=== PATIENT | male | born 1965 | race Caucasian/White ===

== ENCOUNTER 2024-04-09 14:42 | Outpatient (OUT) | payer BC, SELFPAY ==
--- NOTE | 2024-04-09 | XR_ITS ---
The [address] [address] Patient Name: STEVE JOHN MRN: [id number] date: 1965 Sex: M Assigned Patient Location: Current Patient Location: Accession/Order Number: [id number] Exam Date: 04/09/2024 14:43 Report Date: 04/09/2024 16:13 At the request of: PATRICK KLEIN Procedure: XR foot LT min 3V PROCEDURE: XR ankle LT min 3V, XR foot LT min 3V COMPARISON: 04/09/2024 HISTORY: LEFT ANKLE PAIN FINDINGS: BONES:Remote tibia fracture with internal fixation. Remote fibular fracture. No acute fracture or dislocation. 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 Mild enthesopathic spurring of the calcaneus at the Achilles and plantar insertions SOFT TISSUES:Negative. No visible soft tissue swelling. EFFUSION:None visible. OTHER: Negative. 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
--- NOTE | 2024-04-09 | XR_ITS ---
The [address] [address] Patient Name: STEVE JOHN MRN: [id number] date: 1965 Sex: M Assigned Patient Location: Current Patient Location: Accession/Order Number: [id number] Exam Date: 04/09/2024 14:43 Report Date: 04/09/2024 16:13 At the request of: PATRICK KLEIN Procedure: XR ankle LT min 3V PROCEDURE: XR ankle LT min 3V, XR foot LT min 3V COMPARISON: 04/09/2024 HISTORY: LEFT ANKLE PAIN FINDINGS: BONES:Remote tibia fracture with internal fixation. Remote fibular fracture. No acute fracture or dislocation. 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 Mild enthesopathic spurring of the calcaneus at the Achilles and plantar insertions SOFT TISSUES:Negative. No visible soft tissue swelling. EFFUSION:None visible. OTHER: Negative. 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
== END 2024-04-09 14:43 | disposition home or self-care (01) ==
LOC: EC 14:42
PROVIDERS: Visit Provider Podiatrist Foot & Ankle Surgery
DX: M79.672 Pain in left foot (principal); M25.572 Pain in left ankle and joints of left foot
CPT/HCPCS: 73610; 73630

== ENCOUNTER 2024-05-28 12:52 | Outpatient (OUT) | payer BC, SELFPAY ==
--- NOTE | 2024-05-28 13:06 | ECG_ITS ---
The [facility] Test Date: 2024-05-28 Pat Name: STEVE JOHN Department: Room: - Gender: Male [employer]: : 1965 Requested By: PATRICK KLEIN Order Number: [id number] Reading MD: EDWARD CHILDS Measurements Intervals [place] Rate: 58 P: 27 OR: 166 QRS: -26 QRSD: 108 T: 33 QT: 406 QTc: 401 Interpretive Statements SINUS BRADYCARDIA BORDERLINE LEFT AXIS DEVIATION [QRS AXIS < -20] No previous ECG available for comparison Electronically Signed On 05-28-2024 18:37:10 EDT by EDWARD CHILDS
--- NOTE | 2024-05-28 13:49 | P.GSHP_ITS ---
History of Present Illness History of Present Illness Chief complaint: displaced pilon fracture left tibia Narrative: Patient presents for preadmission testing. Please see HPI from Dr. Peralta dated May 16, 2024. Review of Systems ROS Narrative REVIEW OF SYSTEMS: Negative except as stated in HPI, ten or more systems reviewed. Constitutional: No fever, chills, weakness ENT: No sore throat or epistaxis Cardiovascular: No edema, chest pain, palpitations, or activity intolerance Respiratory: No shortness of breath, cough, or wheezing Gastrointestinal: No abdominal pain, constipation, diarrhea, or vomiting Genitourinary: No dysuria or hematuria Neurological: No numbness, tingling, weakness, or headache Psychiatric: No mood changes PFSH [facility] Medical History (Updated 05/28/24 @ 13:51 by Licha Ross NP) Ankle pain ?M25.579 - Pain in unspecified ankle and joints of unspecified foot (ICD-10) BPH (benign prostatic hyperplasia) ?N40.0 - Benign prostatic hyperplasia without lower urinary tract symptoms (ICD-10) UTI (urinary tract infection) ?N39.0 - Urinary tract infection, site not specified (ICD-10) Prostatitis ?N41.9 - Inflammatory disease of prostate, unspecified (ICD-10) Arthritis ?M19.90 - Unspecified osteoarthritis, unspecified site (ICD-10) Seasonal allergies ?J30.2 - Other seasonal allergic rhinitis (ICD-10) Heart murmur ?R01.1 - Cardiac murmur, unspecified (ICD-10) Sepsis (~01/2024) ?A41.9 - Sepsis, unspecified organism (ICD-10) Elevated PSA ?R97.20 - Elevated prostate specific antigen [PSA] (ICD-10) Glaucoma ?H40.9 - Unspecified glaucoma (ICD-10) Presence of functional implant ?Z96.9 - Presence of functional implant, unspecified (ICD-10) Ankle contracture ?M24.573 - Contracture, unspecified ankle (ICD-10) Displaced pilon fracture of left tibia ?S82.872A - Displaced pilon fracture of left tibia, initial encounter for jarek sed fracture (ICD-10) Post-traumatic arthritis of ankle ?M19.179 - Post-traumatic osteoarthritis, unspecified ankle and foot (ICD-10) Elevated serum cholesterol ?E78.00 - Pure hypercholesterolemia, unspecified (ICD-10) Surgical History (Updated 05/28/24 @ 13:46 by Licha Ross NP) H/O colonoscopy ?Z98.890 - Other specified postprocedural states (ICD-10) H/O prostate biopsy (~01/2024) ?Z98.890 - Other specified postprocedural states (ICD-10) H/O knee surgery ?Z98.890 - Other specified postprocedural states (ICD-10) History of ankle surgery ?Z98.890 - Other specified postprocedural states (ICD-10) Social History (Updated 05/28/24 @ 13:28 by Licha Ross NP) Within the past year, how often did you have a drink containing alcohol: never Score interpretation: A score less than 4 is consistent with normal alcohol consumption. Smoking status: Never smoker Non-prescribed substance use: denies use Previous occupational history: [employer] Highest level of school completed/degree received: high school graduate Meds Home Medications and Allergies Home Medications ?Medication ?Instructions ?Recorded ?Confirmed ?Type alfuzosin 10 mg tablet,extended 10 mg PO [id number] 05/28/24 05/28/24 History release 24 hr ascorbic acid (vitamin C) 1,000 mg 1 g PO DAILY 05/28/24 05/28/24 History capsule calcium carbonate 600 mg-vitamin 1 tab PO DAILY 05/28/24 05/28/24 History D3 5 mcg (200 unit) tablet cetirizine 10 mg capsule (All Day 10 mg PO DAILY PRN allergy symptoms 05/28/24 05/28/24 History Allergy (cetirizine)) latanoprost 0.005 % eye drops 1 drp ophthalmic (eye) DAILY 05/28/24 05/28/24 History multivitamin (Daily Multi-Vitamin 1 tab PO DAILY 05/28/24 05/28/24 History tablet) rosuvastatin 20 mg tablet 20 mg PO DAILY 05/28/24 05/28/24 History zinc 50 mg tablet 50 mg PO DAILY 05/28/24 05/28/24 History Allergies Allergy/AdvReac Type Severity Reaction Status Date / Time bee venom protein (honey bee) Allergy local Verified 05/28/24 13:24 swelling Penicillins Allergy Unknown Verified 05/28/24 13:23 Exam Narrative Exam Narrative: Constitutional: Awake, alert, comfortable, well-appearing, nontoxic, interactive, vital signs as charted Head: Normocephalic, atraumatic Neck: Supple, normal appearance, normal range of motion, no meningeal signs, no lymphadenopathy Respiratory: No respiratory distress, breath sounds clear Cardiovascular: Regular rate and rhythm, strong and regular heart tones Skin: No rashes or induration, no lesions, only visible skin inspected Neuro: No neurological deficits, normal sensation Psychiatric: Oriented ?3, normal affect Assessment and Plan Assessment and Plan (1) Post-traumatic arthritis of ankle: (2) Displaced pilon fracture of left tibia: (3) Ankle contracture: (4) Presence of functional implant: (5) Ankle pain: Plan Left ankle and subtalar joint fusion with soft tissue balancing and bone graft as needed, removal of retained hardware scheduled with Dr. Peralta June 09, 2024.
[2024-05-28 14:10] LABS: Anion Gap 12.1; BUN Creatinine Ratio 22.4; Calcium 9.2 mg/dL (8.5-10.1); Carbon Dioxide 25.9 mmol/L (21.0-32.0); Chloride 105 mmol/L (98-107); Estimated GFR (African America >60 (>=60); Estimated GFR (Non-African Ame >60 (>=60); Glucose 127 mg/dL (74-106); Sodium 139 mmol/L (136-145)
== END 2024-05-28 12:53 | disposition home or self-care (01) ==
LOC: PST 12:55
PROVIDERS: Visit Provider Podiatrist Foot & Ankle Surgery
DX: Z01.810 Encounter for preprocedural cardiovascular examination (principal); Z01.812 Encounter for preprocedural laboratory examination; S82.872S Displaced pilon fracture of left tibia, sequela; M19.172 Post-traumatic osteoarthritis, left ankle and foot
CPT/HCPCS: 36415; 80048; 93005; G0463

== ENCOUNTER 2024-06-09 06:14 | Day surgery (SDC) | payer BC, SELFPAY ==
[2024-05-28 13:42] VITALS: BP 119/74; PULSE 68; TEMP 36.5; O2SAT 97; BMI 28.2
[2024-06-09] VITALS (34 sets, daily range): BP systolic 103–150; BP diastolic 59–86; PULSE 57–89; TEMP 35.9–37.3; O2SAT 86–98; BMI 27.5
--- OUTSIDE RECORDS SUMMARY | 2024-06-09 06:19 | XMS_ITS | CCD ---
Author Organization [facility] Care Team Providers Care Director Of Marketing Analytics Name Role Phone Trubachik, Delphine A Unavailable Trubachik SPECTROSCOPIST-VICTIM ADVOCATE, Delphine A Primary Care Provide r ARNOLD MOYA Primary Care Physician [phone] Jade Tinajero Unavailable Unavailable TRUBACHIK, DELPHINE Primary Care Physician [place] SPECTROSCOPIST-VICTIM ADVOCATE, Delphine A Primary Care Provide r SELF, SELF Referring Unavailable TRUBACHIK, DELPHINE Primary Care Unavailable EARLE HENDERSON S Attending Unavailable TRUBACHIK, DELPHINE Primary Care Unavailable EARLE HENDERSON S Referring Unavailable HENDERSONEARLE S Attending Unavailable TRUBACHIK, DELPHINE Primary Care Unavailable EARLE HENDERSON S Attending Unavailable SELF, SELF Referring Unavailable Trub[place]ik SPECTROSCOPIST-VICTIM ADVOCATE, Delphine A Primary Care Provide r TRUBACHIK, DELPHINE A Primary Care Unavailable TRUBACHIK, DELPHINE A Primary Care Unavailable TRUBACHIK, DELPHINE A Attending Unavailable SELF, SELF Referring Unavailable SELF, SELF Referring Unavailable TRUBACHIK, DELPHINE A Primary Care Unavailable TRUBACHIK, DELPHINE A Attending Unavailable SELF, SELF Referring Unavailable TRUBACHIK, DELPHINE A Primary Care Unavailable TRUBACHIK, DELPHINE A Attending Unavailable PATRICK KLEIN Referring Unavailable PATRICK KLEIN Attending Unavailable PATRICK KLEIN Admitting Unavailable TRUBACHIK, DELPHINE Primary Care Unavailable TRUBACHIK, DELPHINE Referring Unavailable Nadir GARCÍA Attending Unavailable TRUBACHIK, DELPHINE Primary Care Unavailable TRUBACHIK, DELPHINE Primary Care Unavailable Jennifer Guan Attending Unavailable ARNOLD MOYA Referring Unavailable TRUBACHIK, DELPHINE Primary Care Unavailable GARCÍA, Nadir R Attending Unavailable TRUBACHIK, DELPHINE Primary Care Unavailable GARCÍA, Nadir R Attending Unavailable TRUBACHIK, DELPHINE Primary Care Unavailable GARCÍA, Nadir R Attending Unavailable TRUBACHIK, DELPHINE Primary Care Unavailable TRUBACHIK, DELPHINE Referring Unavailable GARCÍA, Nadir R Attending Unavailable TRUBACHIK, DELPHINE Primary Care Unavailable TRUBACHIK, DELPHINE Primary Care Unavailable TRUBACHIK, DELPHINE Admitting Unavailable TRUBACHIK, DELPHINE Attending Unavailable TRUBACHIK, DELPHINE Primary Care Unavailable TRUBACHIK, DELPHINE Admitting Unavailable TRUBACHIK, DELPHINE Attending Unavailable TRUBACHIK, DELPHINE Primary Care Unavailable Rod Brown Attending Unavailable Moussjasper, Viktormad Admitting Unavailable TRUBACHIK, DELPHINE Primary Care Unavailable Ronel, Nikita Daigle Consulting Unavailable Bryn Rodney S Consulting Unavailable Blank, Nikita S Consulting Unavailable Blank, Nikita S Consulting Unavailable Blank, Nikita S Consulting Unavailable Blank, Nikita S Consulting Unavailable Blank, Nikita S Consulting Unavailable Blank, Nikita S Consulting Unavailable Blank, Nikita S Consulting Unavailable Blank, Nikita Daigle Consulting Unavailable Marvel Patel Consulting Unavailable Rod Brown Admitting Unavailable Louisa Soriano Attending Unavailable TRUBACHIK, DELPHINE Primary Care Unavailable MD Marvel Patel Consulting Unavailable Marvel Patel Consulting Unavailable TRUBACHIK, DELPHINE Primary Care Unavailable Amauri Tran Attending Unavailable TRUBACHIK, DELPHINE Primary Care Unavailable Cristóbal Lowe Referring Unavaila ble Cristóbal Lowe Attending Unavaila ble Marymineligio, Ambrocio Cathi Admitting Unavaila ble Nadir GARCÍA R Admitting Unavailable GARCÍA, Nadir R Referring Unavailable GARCÍA, Nadir R Attending Unavailable TRUBACHIK, DELPHINE Primary Care Unavailable Allergies Allergy Classification Reported Allergen(s) Allergy Type Date of Onset Reaction(s) Facility Bee/Wasp/Ant Venom (1 source) Honey bee venom Substance Allergy 1 [facility] Work Phone: Penicillins (antibiotic) (2 sources) Penicillins; Translations: [penicillins] Drug Allergy 8 [facility] (20 sources) Penicillins; Translations: [penicillins] Propensity to adverse reactions to drug 8 Unknown (qualifier value), Rash [facility] Work Phone: (8 sources) Honey bee venom Propensity to adverse reactions to drug 1 [facility] (7 sources) Pollen Propensity to adverse reactions to drug 2 [facility] (3 sources) Penicillins Propensity to adverse reactions to drug 8 [facility] (1 source) bee sting Allergy to substance 4 Unknown Reaction [facility] Medications Current Medications Medication Drug Class(es) Dates Sig (Normalized) Sig (Original) acetaminophen 325 mg oral tablet (4 sources) Start: 03-07-2013 Tylenol 325 mg Tab 650 mg = 2 tab(s), Oral, PRN as needed for pain, Refills(s) 0 Start Date: 03/07/13 Status: Ordered 24 hr alfuzosin hydrochloride 10 mg extended release oral tablet (11 sources) alpha-Adrenergic Steven Start: 03-10-2024 Alfuzosin Active MG PO March 10, 2024 12:00am Start: 12-10-2023 take 1 tablet by colleen th every twenty-four hours Alfuzosin HCl 10 MG Tab SR 24 HR Take 1 tablet by mouth. 12/10/2023 Active Start: 12-10-2023 take 1 tablet by mouth once da екатерина alfuzosin 10 mg ER Tab 10 mg = 1 tab(s), Oral, Daily, # 30 tab(s), Refills(s) 11, Pharmacy: [facility], 178, cm, 12/10/23 11:59:00 EST, Height/Length Dosing, 82, kg, 12/10/23 11:59:00 EST, Weight Dosing Start Date: 12/10/23 Status: Ordered Ascorbic Acid (16 sources) Vitamin C Start: 03-10-2024 take 1 g by mouth once daily Ascorbic Acid (Vitamin C) Active 1 GM PO Daily March 10, 2024 12:00am Start: 05-02-2019 take 500 mg by mouth once aissatou y Vitamin C 500 mg, Oral, Daily, Prophylaxis Start Date: 05/02/19 Status: Ordered take 1 tablet by colleen th once daily ascorbic acid 500 MG tablet Take 1 tablet by mouth daily. Active aspirin 325 mg delayed release oral tablet (4 sources) Platelet Aggregation Inhibitor, Nonsteroidal Anti-inflammatory Drug Start: 05-07-2019 take 1 tablet by mouth once daily Ecotrin 325 mg Tab-EC 325 mg = 1 tab(s), Oral, Daily, # 21 tab(s), Refills(s) 0, Pharmacy: [facility] Start Date: 05/07/19 Status: Ordered Start: 05-07-2019 take 1 tablet by colleen th once daily Ecotrin 325 mg Tab-EC 325 mg = 1 tab(s), Oral, Daily, # 21 tab(s), Refills(s) 0, Pharmacy: [facility] Start Date: 05/07/19 Status: Ordered Calcium (9 sources) Phosphate Binder, Calcium CALCIU M PO Take by mouth. Thinks contains Zinc Active CALCIUM PO Take by mouth. Thinks contains Zinc 0 Active calcium carbonate 1500 mg oral tablet (4 sources) Start: 05-02-2019 take 1 tablet by mouth once daily calcium (as carbonate) 600 mg oral tablet 600 mg = 1 tab(s), Oral, Daily, Prophylaxis Start Date: 05/02/19 Status: Ordered cefTRIAXone 2000 mg injection (4 sources) Cephalosporin Antibacterial Start: 03-10-2024 inject 2 g by intramuscular injection once daily Ceftriaxone Active 2 GM IM Daily March 10, 2024 12:00am Start: 01-29-2024 End: 03-07-2024 take 2 g intravenously once daily cefTRIAXone 2 g Inj 2 gm, IV Piggyback, Daily, # 38 EA, Refills(s) 0 Start Date: 01/29/24 Stop Date: 03/07/24 Status: Ordered End: 03-12-2024 cefTRIAXone Sodium (CEFTRIAX ONE IJ) Inject 2 g as directed daily. 20 ML syringe 03/12/2024 Discontinued (Therapy completed) cefTRIAXone Sodi um (CEFTRIAXONE IJ) Inject 2 g as directed daily. 20 ML syringe Active Celebrate Multivitamin oral capsule (4 sources) Start: 05-02-2019 take 1 capsule by mouth once daily Celebrate Multivitamin oral capsule 1 cap(s), Oral, Daily, Prophylaxis Start Date: 05/02/19 Status: Ordered cephalexin 500 mg oral capsule (1 source) Cephalosporin Antibacterial Start: 01-10-2024 End: 01-17-2024 take 1 capsule by mouth four times daily Keflex 500 mg Cap 500 mg = 1 cap(s), Oral, QID, X 7 day(s), # 28 cap(s), Refills(s) 0, Pharmacy: [facility], 178, cm, 01/10/24 10:05:00 EST, Height/Length Dosing, 82.6, kg, 01/10/24 10:05:00 EST, Weight Dosing Start Date: 01/10/24 Stop Date: 01/17/24 Status: Ordered cetirizine hydrochloride 10 mg oral tablet (9 sources) Histamine-1 Receptor Antagonist Start: 03-10-2024 take 1 tablet by mouth once daily Cetirizine (Zyrtec) 10 mg tablet Active 10 MG PO Daily March 10, 2024 12:00am diazePAM 10 mg oral tablet (2 sources) Benzodiazepine Start: 12-10-2023 take 1 tablet by mouth every hour as needed for anxiety Valium 10 mg Tab 10 mg = 1 tab(s), Oral, As Directed, PRN for anxiety, Take one hour prior to procedure., # 1 tab(s), Refills(s) 0, Pharmacy: [facility], 178, cm, 12/10/23 11:59:00 EST, Height/Length Dosing, 82, kg, 12/10/23 11:59:00 EST, Weight Dosing Start Date: 12/10/23 Status: Ordered EPINEPHrine (10 sources) alpha-Adrenergic Agonist, beta-Adrenergic Agonist, Catecholamine Start: 08-27-2023 epinephrine SubCutaneous, PRN Anaphylaxis, Refills(s) 0 Start Date: 08/27/23 Status: Ordered Start: 04-12-2021 End: 08-21-2023 EPINEPHrine 0.3 MG/0.3ML Kena ution Auto-injector injection Hives, lip/tongue/throat swelling, breathing trouble, lightheadedness, passing out or other symptoms of an allergic reaction. 2 Each 08/21/2023 Active ibuprofen 400 mg oral tablet (19 sources) Nonsteroidal Anti-inflammatory Drug Start: 05-02-2019 take 400 mg by mouth every six hours as needed for pain ibuprofen 400 mg, Oral, q6hr, PRN as needed for pain Start Date: 05/02/19 Status: Ordered End: 12-26-2019 take 2 tablets by mouth every six hours as needed ibuprofen 200 MG Tab tablet Take 400 mg by mouth every 6 hours as needed. 0 12/26/2019 Discontinued (Therapy completed) latanoprost 0.05 mg/ml ophthalmic solution (20 sources) Prostaglandin Analog Start: 03-10-[address] Active DROPS OPHTHALMIC March 10, 2024 12:00am Start: 05-02-2019 latanoprost Op th 0.005% Kena 1 drop(s), OPTH, Once a day (at bedtime), Other (see comment) Start Date: 05/02/19 Status: Ordered Start: 10-31-2018 take 1 drop(s) into the eye(s) every other day latanoprost 0.005 % Solution ophthalmic solution Place 1 drop in both eyes every other day. 10/31/2018 Active Start: 10-31-2018 latanoprost 0. 005 % Solution ophthalmic solution levoFLOXacin 750 mg oral tablet (3 sources) Quinolone Antimicrobial Start: 01-07-2024 End: 2024 take 1 tablet by mouth every twenty-four hours Levaquin 750 mg Tab 750 mg = 1 tab(s), Oral, q24hr, X 14 day(s), # 14 tab(s), Refills(s) 0, Pharmacy: [facility], 178, cm, 01/04/24 16:00:00 EST, Height/Length Dosing, 83.6, kg, 01/04/24 16:00:00 EST, Weight Dosing Start Date: 01/07/24 Stop Date: 01/21/24 Status: Ordered 24 hr mirabegron 50 mg extended release oral tablet (1 source) beta3-Adrenergic Agonist Start: 01-18-2024 take 1 tablet by mouth once daily Myrbetriq 50 mg oral tablet, extended release 50 mg = 1 tab(s), Oral, Daily, # 30 tab(s), Refills(s) 11, Pharmacy: [facility], 178, cm, 01/18/24 11:25:00 EST, Height/Length Dosing, 82, kg, 01/18/24 11:25:00 EST, Weight Dosing Start Date: 01/18/24 Status: Ordered Multivitamin preparation (1 source) Start: 03-10-2024 take 1 tablet by mouth once daily Multivitamin Active 1 TAB PO Daily March 10, 2024 12:00am multivitamin tablet (11 sources) take 1 tablet by mouth once daily multivitamin tablet Take 1 tablet by mouth daily. Active take 1 tablet by mouth once aissatou y multivitamin tablet Take 1 tablet by mouth daily. 0 Active 24 hr oxybutynin chloride 5 mg extended release oral tablet (1 source) Cholinergic Muscarinic Antagonist Start: 01-18-2024 take 1 tablet by mouth once daily oxybutynin 5 mg ER Tab 5 mg = 1 tab(s), Oral, Daily, # 30 tab(s), Refills(s) 11, Pharmacy: [facility], 178, cm, 01/18/24 11:25:00 EST, Height/Length Dosing, 82, kg, 01/18/24 11:25:00 EST, Weight Dosing Start Date: 01/18/24 Status: Ordered Probiotic Product (PROBIOTIC 10 ULTRA STRENGTH PO) (2 sources) Probiotic Produc t (PROBIOTIC 10 ULTRA STRENGTH PO) Take by mouth. Active rosuvastatin 20 mg oral capsule (20 sources) HMG-CoA Reductase Inhibitor Start: 03-10-2024 take 20 mg by mouth once daily Rosuvastatin Active 20 MG PO Daily March 10, 2024 12:00am Start: 06-28-2018 End: 08-21-2023 take 1 tablet by mouth once daily rosuvastatin 20 mg Tab 20 mg = 1 tab(s), Oral, Daily, High cholesterol Start Date: 05/02/19 Status: Ordered S.A.S (Saline, Administration of drug, Saline) (3 sources) Start: 01-28-2024 S.A.S (Saline, Administration of drug, Saline) S.A.S (Saline, Administration of drug, Saline), Print Requisition, Supply Start Date: 01/28/24 Status: Ordered S.A.S.H (saline, Administration of drug, Saline, Heparin) (3 sources) Start: 01-28-2024 S.A.S.H (salin e, Administration of drug, Saline, Heparin) S.A.S.H (saline, Administration of drug, Saline, Heparin), Print Requisition, Supply Start Date: 01/28/24 Status: Ordered sulfamethoxazole 800 mg / trimethoprim 160 mg oral tablet (4 sources) Dihydrofolate Reductase Inhibitor Antibacterial, Sulfonamide Antimicrobial Start: 03-17-2024 sulfamethoxazole-tri m ethoprim 800 mg-160 mg Tab Refill(s) 0 Start Date: 03/17/24 Status: Ordered Start: 03-10-2024 take 1 tablet by colleen th twice daily Sulfamethoxazole-trimethoprim 800-160 MG per tablet Take 1 tablet by mouth 2 times daily. 03/10/2024 Active tadalafil 20 mg oral tablet (1 source) Phosphodiesterase 5 Inhibitor Start: 01-18-2024 Cialis 20 mg Tab 20 mg = 1 tab(s), Oral, As Directed, PRN for sexual activity. Do not exceed 20mg within 48 hours., # 30 tab(s), Refills(s) 4, Pharmacy: [facility], 178, cm, 01/18/24 11:25:00 EST, Height/Length Dosing, 82, kg, 01/18/24 11:25:00 EST, Weight Dosing Start Date: 01/18/24 Status: Ordered zinc acetate 50 mg oral capsule (1 source) Start: 03-10-2024 take 50 mg by mouth once daily Zinc Acetate Active 50 MG PO Daily March 10, 2024 12:00am zinc gluconate 50 mg oral tablet (2 sources) take 1 tablet by mouth once daily Zinc 50 MG tablet Take 1 tablet by mouth daily. Active Completed/Discontinued Medications Medication Drug Class(es) Dates Sig (Normalized) Sig (Original) acetaminophen 325 mg / HYDROcodone bitartrate 5 mg oral tablet (4 sources) Opioid Agonist Start: 9 [place] 325 mg-5 mg oral tablet See Instructions, for pain, 40 tab(s), Refill(s) 0, 1 - 2 po q4-6h prn pain Dx: M67.52 Duration: 7 days, [facility] Start Date: 05/07/19 Status: Ordered diphenhydrAMINE hydrochloride 25 mg oral tablet (6 sources) Histamine-1 Receptor Antagonist End: 3 take 1 tablet by mouth every six hours as needed diphenhydrAMINE 25 MG tablet Take 25 mg by mouth every 6 hours as needed. Nightly 0 08/21/2023 Discontinued (Therapy completed) esomeprazole 20 mg / naproxen 500 mg delayed release oral tablet (15 sources) Proton Pump Inhibitor, Nonsteroidal Anti-inflammatory Drug End: 0 take 1 tablet by mouth twice daily Naproxen-Esomeprazole (VIMOVO) 500-[address] Take 1 tablet by mouth 2 times daily. 0 12/26/2019 Discontinued 3 ml heparin sodium, porcine 100 unt/ml prefilled syringe (2 sources) Unfractionated Heparin, Anti-coagulant End: 4 Heparin Na, Pork, Lock Flsh PF (BD Heparin PosiFlush) 100 UNIT/ML Solution 1 mL by Intracatheter route as needed. 03/12/2024 Discontinued (Therapy completed) latanoprost Opth 0.005% Kena (1 source) Start: 9 latanoprost Opth 0.005% Kena 1 drop(s), OPTH, Once a day (at bedtime), Other (see comment) Start Date: 05/02/19 Status: Ordered methylPREDNISolone 4 mg oral tablet (3 sources) Corticosteroid Start: 2 End: 3 methylPREDNIsolone 4 MG Tab Therapy Pack tablet Indications: Right knee pain, unspecified chronicity , Acute medial meniscus tear, right, initial encounter Day 1 take 6 pills, day 2 take 5 pills, day 3 take 4 pills, day 4 take 3 pills, day 5 take 2 pills, day 6 take 1 pill. 21 tablet 0 06/28/2022 08/21/2023 Discontinued (Therapy completed) Start: 06-28-2022 methylPREDNIso lone 4 MG Tab Therapy Pack tablet Indications: Right knee pain, unspecified chronicity , Acute medial meniscus tear, right, initial encounter Day 1 take 6 pills, day 2 take 5 pills, day 3 take 4 pills, day 4 take 3 pills, day 5 take 2 pills, day 6 take 1 pill. 21 tablet 0 06/28/2022 Active naproxen 500 mg oral tablet (3 sources) Nonsteroidal Anti-inflammatory Drug Start: 01-23-2020 End: 2021 take 1 tablet by mouth twice daily at mealtime naproxen 500 MG tablet Take 1 tablet by mouth 2 times daily with meals. 30 tablet 0 01/23/2020 2021 Discontinued (Therapy completed) omeprazole 20 mg delayed release oral capsule (3 sources) Proton Pump Inhibitor Start: 01-23-2020 End: 2021 take 1 capsule by mouth once daily omeprazole (PriLOSEC) [address] capsule Take 1 capsule by mouth daily. 15 capsule 0 01/23/2020 2021 Discontinued (Therapy completed) predniSONE 20 mg oral tablet (20 sources) Start: 04-10-2021 End: 04-15-2021 take 2 tablets by mouth once daily predniSONE 20 mg Tab 40 mg = 2 tab(s), Oral, Daily, # 10 tab(s), Refills(s) 0 Start Date: 04/10/21 Stop Date: 04/15/21 Status: Ordered Start: 03-17-2019 End: 12-26-2019 predniSONE 20 MG Tab tablet Indications: Acute pain of left knee Take 3 tabs daily X 3 days then 2 tabs daily X 3 days then 1 tab daily X 3 days then 1/2 tab daily X 4 days. Take with food 20 tablet 0 03/17/2019 12/26/2019 Discontinued (Therapy completed) sildenafil 100 mg oral tablet (9 sources) Phosphodiesterase 5 Inhibitor Start: 01-03-2019 End: 03-17-2019 sildenafil citrate 100 MG Tab tablet Take 1/2 to 1 tablet 1/2 prior to sexual intercourse 30 tablet 0 01/03/2019 03/17/2019 Discontinued vitamin b12 1 mg oral tablet (5 sources) Vitamin B12 End: 08-21-2023 cyanocobalamin 1000 MCG tablet Take 1,000 mcg by mouth. 0 08/21/2023 Discontinued (Therapy completed) Problems Active Problems Problem Classification Problem Date Documented Da te Episodic/Chronic Allergic reactions (1 source) Eczema; Translations: [Other specified dermatitis] 02-11-2024 Episodic Conditions associated with dizziness or vertigo (1 source) Dizziness; Translations: [Dizziness] Episodic Disorders of lipid metabolism (20 sources) Hyperlipidemia; Translations: [Hyperlipidemia, unspecified] Onset: 4 12-12-2017 Chronic Glaucoma (20 sources) Glaucoma; Translations: [Unspecified glaucoma] Onset: 0 01-30-2020 Chronic Heart valve disorders (9 sources) Heart murmur; Translations: [Cardiac murmur, unspecified] 12-10-2023 Episodic Hyperplasia of prostate (12 sources) Benign prostatic hypertrophy with outflow obstruction; Translations: [Benign prostatic hyperplasia with lower urinary tract symptoms] Onset: 4 Chronic Inflammatory conditions of male genital organs (6 sources) Chronic prostatitis; Translations: [Chronic prostatitis] Onset: 4 Chronic Inflammatory conditions of male genital organs (5 sources) Prostatitis; Translations: [Inflammatory disease of prostate, unspecified] Onset: 4 Episodic Joint disorders and dislocations; trauma-related (1 source) Acute tear of medial meniscus of right knee; Translations: [Other tear of medial meniscus, current injury, right knee, initial encounter] Episodic Nonspecific chest pain (2 sources) Chest pain; Translations: [Chest pain, unspecified] 02-11-2024 Episodic Osteoarthritis (1 source) Osteoarthritis of right knee joint; Translations: [Unilateral primary osteoarthritis, right knee] Chronic Other acquired deformities (1 source) Arthropathy of knee joint; Translations: [Other specified acquired deformities of musculoskeletal system] Episodic Other aftercare (1 source) Long-term current use of antibiotic; Translations: [retirement (current) use of antibiotics] 03-10-2024 Episodic Other connective tissue disease (12 sources) Plantar fasciitis 05-02-2019 Episodic Comment on above: RIGHT FOOT Other connective tissue disease (2 sources) Pain of right calf; Translations: [Right calf pain] Other diseases of bladder and urethra (2 sources) Detrusor overactivity; Translations: [Overactive bladder] Onset: 4 Chronic Other diseases of bladder and urethra (4 sources) Overactive bladder 01-18-2024 Chronic Other infections; including parasitic (1 source) H/O: infectious disease; Translations: [Personal history of other infectious and parasitic diseases] Onset: 4 Episodic Other infections; including parasitic (2 sources) History of sepsis 03-17-2024 Episodic Other liver diseases (1 source) Abnormal levels of other serum enzymes; Translations: [Liver enzyme elevation] Episodic Other lower respiratory disease (1 source) Dyspnea; Translations: [Shortness of breath] 02-11-2024 Episodic Other male genital disorders (1 source) Impotence of organic origin; Translations: [Erectile dysfunction, unspecified erectile dysfunction type] Chronic Other male genital disorders (3 sources) Male erectile dysfunction, unspecified; Translations: [Erectile dysfunction] Onset: 4 Chronic Other male genital disorders (6 sources) Prostatic intraepithelial neoplasia; Translations: [Prostatic intraepithelial neoplasia] Onset: 4 Episodic Other non-traumatic joint disorders (14 sources) Knee pain; Translations: [Acute pain of left knee] 05-02-2019 Episodic Other non-traumatic joint disorders (3 sources) Pain in right knee; Translations: [Pain in joint, lower leg] Onset: 2 Episodic Other screening for suspected conditions (not mental disorders or infectious disease) (20 sources) Platelet count below reference range; Translations: [Raised prostate specific antigen] Onset: 3 Episodic Other skin disorders (2 sources) Localized swelling, mass and lump, right lower limb; Translations: [Localized swelling of right lower leg] Episodic Other upper respiratory disease (9 sources) Allergic disposition; Translations: [Other allergic rhinitis] Onset: 1 Chronic Pathological fracture (1 source) Fracture of femoral condyle; Translations: [Pathological fracture, right femur, initial encounter for fracture] Episodic Phlebitis; thrombophlebitis and thromboembolism (1 source) Phlebitis; Translations: [Phlebitis and thrombophlebitis of unspecified site] Onset: 4 Episodic Unclassified (14 sources) Patient encounter status; Translations: [Routine general medical examination at a health care facility] 08-28-2023 Unclassified (1 source) Screening status; Translations: [Colon cancer screening] Unclassified (2 sources) Other; Translations: [Other] Onset: 4 Urinary tract infections (1 source) Urinary tract infectious disease; Translations: [Urinary tract infection, site not specified] Onset: 4 Episodic Past or Other Problems Problem Classification Problem Date Documented Date Episodic/Chronic Esophageal disorders (10 sources) Gastroesophageal reflux disease without esophagitis; Translations: [Gastro-esophageal reflux disease without esophagitis] Onset: 01-30-2020 Resolved: 01-30-2020 01-30-2020 Chronic Genitourinary symptoms and ill-defined conditions (4 sources) Increased frequency of urination; Translations: [Frequency of micturition] Onset: 08-21-2023 08-21-2023 Episodic Septicemia (except in labor) (4 sources) Sepsis; Translations: [Sepsis, unspecified organism] Onset: 01-04-2024 Episodic Results Test Name Value Interpretation Reference Range Facility Coding Summary.on 05-08-2024 Coding Summary. XPMJZjpa56CAy5bYi+PG hl YWQ+OY8ARSMnC15bdDWtjG 8mF7EUULsUGhyyAKFWZMuD MmQnriYiIK7eqFUsKAQb IC8+KM5qEMYaUcngxXXgs9 N3oIY4D92wzz9qITsupCA5 IWHiDrNedrvug8jzaSh3PG cuNmluOyBt SUJbiL02FEI6eL74Lj59nS YwuBYft6pisPw5VxUmJQQq YIM7wNelJMijc6DnOUQbL9 9jsNWsd5F0 UEAqyPydjLTrQrOzsNE8oS 9cKDzdfvtax5wvoacxSat2 pb66gVLic4W4cTT7G3Kmbx D1XXMtgHYt HnbhyXCYgL2objauj6xrcu ceBcZtBVCnWQc4DJr9TPLw kXnaTpRwQQ15CDN8KTUqfa QcQ8PjXEUu jByaZbT5z2D7Cd5SX0HPQu mrA4FVURIGIQegpFX+PC90 wc76R7ZzEhfjFim4GMTuOC G7sKB3dP5o JJAwILgvk4G2fGI0Q2Xoif Qobt9rc6reLROuUFilX89w oPGwg5K2ZWCfrFB1BIYemG yqLgCwnR51 Oyc+SDYqwNoym7QqSseyf1 fsq3kebGr2YebjRCIyvqZf yHddGXB2n2UfUs2jABFbrA D8tPC6nG1i AvDqFsH0CSvlV284WyNqeI BlJthvJ92oJ8HjuSQ+PHRy Ogi8HGSazUbyOL5xK7XeYH RpbmctbGVm sDwkQX7rHYYbgotrHUMbuG 1qWAPqX7t4ApDxYgI6SYvv P3UlCQGkpgvcUb46fM1yNw DtGxD7QGcu D9LweeC3ZERsjEZzJCnfTO F1M73wi8I8FYZsCIKgXRN6 yET4qG6zzZueaasgfFRgaT sgdmVydGlj ICldELeaU700JPQjyRxlYu NvZGluZyBEYXRlOiAgMDYv MjAvMjAyNDwvdGQ+PHRkIH T4aZytNYUq jISqVGeuBa5fuIfwdIavTC 5zYUAeqtkeGNDlzK7sNSVt lQDwyNarIL3bDVZpasiuo8 42FlCtMTV9 NRVgvHPuG1BrsE1pUxCcCL PjEHReP3FjsLPtLBvxA646 MSgaNdZ5EYFgtqOwA8QdSX FsaWduOiB0 u9E8Lb1Qe8MjvkuvF1FhuM SzMgEwWbvlIGb9Q1HhBdgu dHI+LG39LETmKK82ALb5NA P0pNkjNQru IBSpD5YfkM8eFjLyHCOhVW RkOyc+PHRhYmxlIHdpZHRo GXciOBIyYiKydMzxBN3eOp 9yZGVyLWNv uKhfxOJdAyLeo6eeDDTnFS lxJA1jqEkwN0TkfAO1WUPp e8j4Nl14F29sJ3BnqDC+PG IyrUV9xEP9 tF8tXeXbEsC0FXjwT518Lx HvuTArGlchl5aai0karUj2 RvM1RIIlikKziPekQOE0f4 EpIa35K12e IHdpZHRoPSIxNSUiIHZhbG hlav5vtT1fAm4+PGNvbCB3 lQS3aD7qHjVmHzL0LDafD2 49InRvcCIv Axsxa2ehh0fxpBl3ZtTgLC QlriIzqEqnVPL1z2VzHc71 J4UgbSsia7GzEfo0uh54zC Gqo4E3hJE1 U3DhCCXznrudwMOxzHxjLF 2aXKUwwvkwZOSwpR1yWOLv Y5s5LyTzMqL6GCmpS8Ohqj W1HAKpnNXt WNPxbWAFjH5dcwipe0wfuk tbRjVaOAByIQf6FZp7UVUj wWrnOmQtGAA1DdO9EPE1xE MarX7keFao oqdzkA0rYdo+DWR6xVDojO CWFE2cTeaoeUI+PHRkIHN0 fWvnVZcwPKLxmQ8eEVByC1 g0PdSfMcJ8 ZPgqC5UabrJ2JAPwmKFsCY VgsTTLkI8wruwfl8dmthhf QqAyWTAeKAj4BKs1IJFqjA duOiBsZWZ0 WgC1ZNN8kOTdsJ3noGuyil uihC9bJjb+QmlydGggRGF0 PQo7V2FyJou7HWJwuFovZQ 0ncGFkZGlu Tv7jxHfqaNqtGR0qGZGckc vhq425RrSzp8ddTONauCWa LLagGUX3D44if8A3FLUfXX LyNYN0fAZ2 jN8noAlilaahwCQmjRsand NkwUhzGQbuYFidY185VTXv lWeyYiHdVIu0A2WjJut6JF QgmTneTT2s jTLbLFtuOe7zeYtxmGokNJ 7jSDJnykxxf381NyRuw3fb ZUTmwNIzSYhaPFH0G16ej3 F4JVMkOITu COD4qSK0jC8fzEovohruyC VmdDsgdmVydGljYWwtYWxp U557DZXuzQgaPuOxjEo4K7 LzPrr0CLVx bNpfJR2eaWGnBJaeEi9pmE xmdMfoLG8oBCCbwmpuj963 IlGkj7ymZZWqpKZkMYzaDL X6Y21rs3J4 EVCeIRPqYNA9wAD4pV3abX lnbjogbGVmdDsgdmVydGlj DGcrDTqaG087QITuhMxjSs BhdGllbnQg IHauHBa4E5JrKseniYN+PC 43SEEjAP45gGAjrHIus8el pMh5YiLoEDZjAXF0nJjhYQ hlo4XvOPWd N27bfHScx6E4YQVzlGzhzI UhXmGufUR1pQ7dJRgvgfkm r2rqwyebMnvkc4xlvb00fF 87O62fSVhj ZHRoPSIzMCUiIHZhbGlnbj 2ppE7fFw5+LRRgcLH6yQF3 oY1aGXVeMuU6CPeiQ703Dm RvcCIvPjxj u7alm1wfsAf9KfI5OYPusc MtuBcsVBZ8n7QeAt36R26f IHdpZHRoPSIyMCUiIHZhbG bhwo8vrD6e Ii8+EGVowDN0pIT2xQ3fUm LhDxF0QBwkN420SaNtzBLv OktzB32cH7OfiDY+PHRyPj f7HWBhkAkx HR3ijZQjFRubGh4zCWX6Ru LxLsMzJNchV2EkSCFyzlji fxlraXW0OWSjRTByuO54Qc 9udDogMTBw tSRJyA2apxzsf1fkltfwUf JcMEVwAWk9OEu7LSFxeRqq KcXmCLF9XxF9ZKC7fUZrrS 1hbGlnbjog eW2lX9QhHKCkfzkyFm53mY 5pNzDkEyK3MIuiCmx+Uk9U WiRQVfjrJ6SSL64ESMUGCL 80LI34jKFh n9E7yEF7N5ApROMuidhlly wgaFY7DULrJKWexL67fJSt WVaoYf5ie5Y1z570HLDzFC LlcU53Qv4y cGwgBKBsdJFGaC2apqwxh2 gaoeiyChDsGKMxBNl9QDe6 JAEduCxfTcYmURF9BuW3GB M4qHKmqX0e cRhvesqknN9bAjy+MDMvMD CvGZv0WxbizWB+PHRkIHN0 rTscMTvsBLTnjK8eGROoE8 j4IjRzUtM0 XDfuL2FoLLStcebyBg55gL 4fKzEiBrA7IHwsG7AhsyX9 OKEvnOZyZJtwEMI0Y58xg9 G4BUFsLQVi EIP3aKK1lV7aiHrpvaynhI VmdDsgdmVydGljYWwtYWxp B493PBBgzKboNwF0OMvjCE PkGA38XS79 dFBnm7W0eWF3N3YwYEEfha dovitqeOJ6LYMwGGJntK93 rSOrZUwkEd0pi1Z7i126WA MbLENssB68 Jr7opBzqTSOtgSWNkP7fkq hxf6lrirpyOzZxODCzJLo4 HGa9NZLheHpgFrVfAGL7Wg Q2VTQ7jAMm bE5kpJugqakvjV7fVzs+TW FsZTwvdGQ+ZTOyJMQ2iZzc COwnZVIxpW8wJLFpL1f6Tf BgWjY8UVdb V9VjYPFbdzfmBs81dK7oAe LyGrJ0PUfeM1OykoY5RBRa hPOeDIhaHUW2O10ml7C7EP MwMDAwMDA7 rEQ7bJ0aoPphrsldoOAynS dnuoXmlTpgNWbeOQukO450 IVFotLkiJs64lZCqeChthm T9P0QfVdqa dHI+TY38ZUToMM67zEDpaI Bmg0gweTv6DdHqVQGjNEM5 nEeoEWmsc9BnNLUtU01chV Nrv8L9OSVk eAqebVRtAsQxhVL7hF1lTL ndcvnrj9ribmakRorjh2xr ba43qY16M37wBZuqNAInIC IzMCUiIHZh oOydoq8ntM7sJr5+PGNvbC Y0kRT0bX9nWoGhQnM0DGei W513LcEbmNRsBissl1dhp3 jpoAw0MzWb YBAjrpEylJwxTIK2o2UzGy 84T41pMOndTCVuNJGfTIOq GVAbyOmwiz9psI1mIz4+PC 6ih0yjxt85 oH40bZX+GBLbENG6xJnpOD uyDPXsnY3uOObgYdV9SNWn BnPwhX81aFAvWPxfLe9vmD silYnaOX5x ZPJwlrgwa494DiMbu5eeHC ZvlXKfQOtgDMN1G22pq8A2 TOTwLJWiPCR1wUA7nK0pmA lnbjogbGVm dDsgdmVydGljYWwtYWxpZ2 78HRVxtQtwLjOnaXLeC1uj hdRMNZ2lNvkkbLN+PHRkIH U1tQldFXsp PSGmbM2sCMEdS0j4GeIqMb E5TApjB8IomjT9TZIqrTCm PCHmeGGWuR8bqudyc8lcna ogIzAwMDAw GTw5VMy8ACWxaFpqAjYlYG L5DyY8DFC5gATgoB7rkOce fggwdK2hOeb+RklOOjwvdG Q+PHRkIHN0 tPorSKjoOBPhkR9hMRNuL2 y4EtXdStU4VXkmH3NxpxG4 NSInpDFtIBSoyDWUuF8xfb gnt6bjukcs ZwZyNYHoGSb7UIn5IYIqrE gtVbUrHZZ1KvM6ZNL1qHJr vW4ymYingmxlxY1qVkd+TV JOOjwvdGQ+ HWFgBME9cOjqLGepGOHmzP 0yJFPbR8j5InFwEzA3IBoq L0VrvzE5DWEzoWBdOIRufI ATgA4avxbn x3ffuhohGfMiDDCaFHs2BL p8PYXvcGkmPfPqFNJ7IrV7 BWZ5iOFgdO6hjWbwwvzbtI 9wOyc+UGF5 EIO7NX37BS13H2TnChyedD FibGU+PHRhYmxlIHdpZHRo SAwqRYYbPaGbpUrnIQ3jBu 9yZGVyLWNv bGxhcHNlOiBjb (more content not included)... Normal [facility] CT Lower Extremity w/o Contr ast Lefton 05-03-2024 CT Lower Extremity w/o Contrast Left Exam Date/Time: 04/30/2024 14:43 EDT Reason for Exam: M19.172 Report IMPRESSION: HEALED DISTAL TIBIAL AND FIBULAR FRACTURES WITH HARDWARE, NOTED. MODERATELY EXTENSIVE OSTEOARTHRITIC CHANGES OF THE ANKLE JOINT. NOTHING ACUTE OR DESTRUCTIVE IDENTIFIED. EXAM: CT Lower Extremity w/o Contrast Left DATE: 04/30/2024 2:26 PM CLINICAL HISTORY: M19.172. COMPARISON: None available. TECHNIQUE: Spiral imaging was obtained of the left ankle with routine multiplanar reconstructions performed. All CT scans at this facility use dose modulation, iterative reconstruction, and/or weight based dosing when appropriate to reduce radiation dose to as low as reasonably achievable. FINDINGS: Three essentially coronally oriented orthopedic screws are noted within the distal tibial plafond with a healed mildly deformed posterior malleolar fracture and moderately extensive osteoarthritic changes of the ankle joint with prominent marginal osteophytosis. A chronic healed fracture of the distal fibula with osteotomies from previously removed orthopedic hardware is noted. There is no acute fracture, evidence of hardware loosening, worrisome bone destruction, or other findings of concern identified. Ordering Provider: , FINAL REPORT Dictated: 05/03/2024 2:31 pm Yoel Joya MD Signed (Electronic Signature): 05/03/2024 2:31 pm Signed by: Yoel Joya MD Transcribed by: JASON Technologist: BRICE, Rylee [facility] US PVR Lower EXT Complete Bi laton 05-03-2024 US PVR Lower EXT Complete Bilat Exam Date/Time: 04/30/2024 14:33 EDT Reason for Exam: R09.89 Report IMPRESSION: NO EVIDENCE OF SIGNIFICANT ARTERIAL STENOTIC DISEASE INVOLVING THE RIGHT AND LEFT LEGS. CLINICAL HISTORY: R09.89. COMPARISON: CT abdomen and pelvis with contrast 01/25/2024. FINDINGS: On the right, the brachial systolic pressure is 113 the high thigh pressure is 171 , index 1.44 the low thigh pressure is 152 , index 1.28 the calf pressure is 144 , index 1.21 the posterior tibial ankle pressure is 160 , index 1.34 the dorsalis pedis ankle pressure is 152 , index 1.28 and the digit pressure is 115 , index 0.97 (with normal 0.7 or greater). The plethysmography waveforms are normal. On the left, the brachial systolic pressure is 119 the high thigh pressure is 168 , index 1.41 the low thigh pressure is 156 , index 1.31 the calf pressure is 148 , index 1.24 the posterior tibial ankle pressure is 164 , index 1.38 the dorsalis pedis ankle pressure is 144 , index 1.21 and the digit pressure is 119 , index 1.00 (with normal 0.7 or greater). The plethysmography waveforms are normal. Ordering Provider: , FINAL REPORT Dictated: 05/03/2024 2:26 pm Yoel Joya MD Signed (Electronic Signature): 05/03/2024 2:26 pm Signed by: Yoel Joya MD Transcribed by: JASON Technologist: HAYDEN [facility] [place] Consent for Treatmenton 04-19 Consent for Treatment [id number] 0TIFF [facility] Physician Orderon 04-18-2024 Physician Order [id number]#1. 00TIFF [facility] Insurance Correspondenceon 0 04-17-2024 Insurance Correspondence [id number]#1. 00TIFF [facility] Patient Educationon 03-17-20 24 Patient Education Oncology Prostate Cancer Screening Prostate cancer screening is testing that is done to check for the presence of prostate cancer in men. The prostate gland is a walnut-sized gland that is located below the bladder and in front of the rectum in males. The function of the prostate is to add fluid to semen during ejaculation. Prostate cancer is one of the most common types of cancer in men. Who should have prostate cancer screening? Screening recommendations vary based on age and other risk factors, as well as between the professional organizations who make the recommendations. In general, screening is recommended if: ? You are age 50 to 70 and have an average risk for prostate cancer. You should talk with your health care provider about your need for screening and how often screening should be done. Because most prostate cancers are slow growing and will not cause , screening in this age group is generally reserved for men who have a 10- to 15-year life expectancy. ? You are younger than age 50, and you have these risk factors: ? Having a father, brother, or uncle who has been diagnosed with prostate cancer. The risk is higher if your family member's cancer occurred at an early age or if you have multiple family members with prostate cancer at an early age. ? Being a male who is Black or is of [place] or sub-Saharan descent. In general, screening is not recommended if: ? You are younger than age 40. ? You are between the ages of 40 and 49 and you have no risk factors. ? You are 70 years of age or older. At this age, the risks that screening can cause are greater than the benefits that it may provide. If you are at high risk for prostate cancer, your health care provider may recommend that you have screenings more often or that you start screening at a younger age. How is screening for prostate cancer done? The recommended prostate cancer screening test is a blood test called the prostate-specific antigen (PSA) test. PSA is a protein that is made in the prostate. As you age, your prostate naturally produces more PSA. Abnormally high PSA levels may be caused by: ? Prostate cancer. ? An enlarged prostate that is not caused by cancer (benign prostatic hyperplasia, or BPH). This condition is very common in older men. ? A prostate gland infection (prostatitis) or urinary tract infection. ? Certain medicines such as male hormones (like testosterone) or other medicines that raise testosterone levels. A rectal exam may be done as part of prostate cancer screening to help provide information about the size of your prostate gland. When a rectal exam is performed, it should be done after the PSA level is drawn to avoid any effect on the results. Depending on the PSA results, you may need more tests, such as: ? A physical exam to check the size of your prostate gland, if not done as part of screening. ? Blood and imaging tests. ? A procedure to remove tissue samples from your prostate gland for testing (biopsy). This is the only way to know for certain if you have prostate cancer. What are the benefits of prostate cancer screening? ? Screening can help to identify cancer at an early stage, before symptoms start and when the cancer can be treated more easily. ? There is a small chance that screening may lower your risk of dying from prostate cancer. The chance is small because prostate cancer is a slow-growing cancer, and most men with prostate cancer from a different cause. What are the risks of prostate cancer screening? The main risk of prostate cancer screening is diagnosing and treating prostate cancer that would never have caused any symptoms or problems. This is called overdiagnosisand overtreatment. PSA screening cannot tell you if your PSA is high due to cancer or a different cause. A prostate biopsy is the only procedure to diagnose prostate cancer. Even the results of a biopsy may not tell you if your cancer needs to be treated. Slow-growing prostate cancer may not need any treatment other than monitoring, so diagnosing and treating it may cause unnecessary stress or other side effects. Questions to ask your health care provider ? When should I start prostate cancer screening? ? What is my risk for prostate cancer? ? How often do I need screening? ? What type of screening tests do I need? ? How do I get my test results? ? What do my results mean? ? Do I need treatment? Where to find more information ? The [place] [employer]: www.cancer.org ? [place] [employer]: www.auanet.org Contact a health care provider if: ? You have difficulty urinating. ? You have pain when you urinate or ejaculate. ? You have blood in your urine or semen. ? You have pain in your back or in the area of your prostate. Summary ? Prostate cancer is a common type of cancer in men. The prostate gland is located below the bladder and in front of the rectum. This gland adds flu (more content not included)... Normal [facility] Urology Office/Clinic Noteon 03-17-2024 Urology Office/Clinic Note Chief Complaint [facility] F/U HPI Staff Pt last seen in our office 01/18/24 DX: Elevated PSA, PIN, BPH, OAB, Chronic Prostatitis & ED S/P TRUS/Bx 01/01/24 Pt admitted to [facility] 01/04/24 due to sepsis. Then later Tx'd for thrombophlebitis of IV site. *Alfuzosin 10mg ER. Still taking with no problems Was then started on Myrbetriq 50mg & Cialis 20mg therapy at time of last encounter. Insurance would not cover Myrbetriq, so was then switched to Oxybutynin 5mg qd therapy. Pt then called our office 01/25/24 c/o gross hematuria accompanied with fever. Our office advised pt to go to ER. [facility] 01/25/24 CC: burning w/urination. As well as N&V NEG CT ap w01/25/24 in ER patient was found to have white blood cell count of 15.7 with positive UA and elevated PSA (15.3 & 25.5%) initially started on cefepime and was later downgraded to Rocephin. Urine culture came back positive for E. coli. 1 out of 2 blood cultures were positive for E. coli same bug as urine. Infectious disease recommended 6 weeks of IV antibiotics Rocephin daily Dysuria: _denies Incomplete bladder emptying: denies Hematuria: denies visible blood Frequency: every hour Urgency: denies Nocturia: denies Stream: denies hesitation, normal stream Leaking: denies Post void dripping: denies Wearing pads/ Depends: denies Urge incontinence: denies Stress incontinence: denies Incontinence without Sensory Awareness: denies Abdominal pain: denies Flank pain: denies Sexual complaints: denies History of Present Illness Tests reviewed: reviewed UA, ER notes, urine culture I have reviewed the previous health record information and history for this patient from Dr. García. I have reviewed and verified the staff HPI to be accurate for this encounter. Review of Systems PHQ Score Initial Depression Screen Score: 0 SCORE ROS - Provider Constitutional: denies weight loss, denies hot flashes. Eyes: denies eye problems. Gastrointestinal: denies nausea, denies vomiting. Cardiovascular: denies chest pain or angina. Integumentary: no dryness Musculoskeletal: denies musculoskeletal symptoms. ENMT: denies otolaryngeal symptoms. Respiratory: no shortness of breath. Heme/Lymph: denies easy bleeding tendency, denies easy bruising tendency. Psychiatric: no confusion, no anxiety. Genitourinary: See HPI. Physical Exam Vitals & Measurements T: 37.0 ?C(Temporal Artery) HR: 98(Peripheral) BP: 118/78 HT: 70 in HT: 178 cm WT: 82 kg WT: 180.4 lb BMI: 25.88 General Appearance: alert, no distress, well nourished, well developed male. Genitourinary: normal scrotum, normal testes, normal urethra, normal epididymis, normal vas deferens/spermatic cord. Flank Pain: none. Bladder: nonpalpable. Assessment/Plan 1. Elevated PSA (R97.20: Elevated prostate specific antigen [PSA]) PSA: 03/17/22 - 4.6 08/21/23 - 5.4 01/25/24 - 15.3 & 25.5% (pt was septic) Denies any known family hx of prostate cancer. SANCHEZ 12/10/23: 45g, benign S/p TRUS/bx 01/01/24 - negative for malignancy. HGPIN left mid. Pt presented to [facility] on 01/04/24 due to prostatitis, sepsis following TRUS/BX Pt was admitted and given IV abx, and oral abx on Sunday at discharge. Returned to ER 01/10/24 due to thrombophlebitis due to IV location on arm. [facility] again 01/25/24 due to sepsis secondary to UTI. PSA was drawn at that time. Advised pt this was PSA level was elevated due to infection, level not of concern. -Repeat PSA in 10 mos, order at [facility] 2. History of sepsis (Z86.19: Personal history of other infectious and parasitic diseases) [facility] 01/25/24 due to burning w/ urination. Found to have WBC count of 15.7 with positive UA. UCx >100k E. coli. Initially started on cefepime and was later downgraded to Rocephin. 1 out of 2 blood cultures were positive for E. coli. IV antibiotics Rocephin x6 wks per ID. Had picc line removed a few days ago. Now is currently taking Bactrim. UA today negative for infection. States he has f/u with nurse to evaluate prior picc line. -Complete abx course. Pt to wear sunscreen. 3. PIN (prostatic intraepithelial neoplasia) (N42.31: Prostatic intraepithelial neoplasia) S/p TRUS/bx 01/01/24 - HGPIN left mid. 4. BPH with urinary obstruction (N40.1: Benign prostatic hyperplasia with lower urinary tract symptoms) Alfuzosin 10mg ER qd. Not voicing any urinary habit complaints. 5. OAB (overactive bladder) (N32.81: Overactive bladder) Started on Myrbetriq 50mg qd at prior OV. However pt's insurance would not cover Myrbetriq, so was then switched to Oxybutynin 5mg qd. No bother with urination. 6. Chronic prostatitis (N41.1: Chronic prostatitis) Per TRUS/bx 01/01/24. 7. Erectile dysfunction (N52.9: Male erectile dysfunction, unspecified) Started on Cialis 20mg prn at prior OV. No concern. Follow-up With When Contact Information Nadir GARCÍA MD, [facility] [address], [place] [address] [phone] Additional Instructions: 10 mos w/ PSA Cortney (more content not included)... Normal [facility] Comment on above: Result Comment: Elec tronically Signed By: Nadir GARCÍA MD\.br\Date and Time Signed: 03/17/24 14:03 EDT\.br\Electronically Co-Signed By: Louise Oh\.br\Date and Time Co-Signed: 03/17/24 14:01 EDT POCT URINALYSIS DIPSTICK AUT OMATED W/O SCOPon 02-11-2024 Amorphous sediment LM Ql (Urine sed) [facility] Appearance (U) clear [facility] Bacteria LM Ql (Urine sed) [facility] Bilirubin Ql (U) Negative [facility] Casts LM.LPF (Urine sed) [#/Area] [facility] Color (U) yellow [facility] Crystals LM Nom (Urine sed) [facility] Epithelial cells.squamous LM.HPF (Urine sed) [#/Area] [employer] [facility] Flow cytometry specialist review Parth (Unsp spec) [Interp] [employer] [facility] Glucose Auto test strip (U) [Mass/Vol] Negative mg/dL [facility] Interpretation and review of laboratory results Normal [facility] Ketones [Mass/Vol] Negative mg/dL [facility] Leukocyte esterase Qn (U) [facility] Leukocyte esterase Test strip Ql (U) Negative [facility] Nitrite Ql (U) Negative [facility] pH (U) 5.5 [pH] 5 - 7 [facility] Protein Ql (U) Negative mg/dL [facility] RBC LM.HPF (Urine sed) [#/Area] [facility] RBC Ql (U) trace [facility] Specific gravity (U) [Rel density] 1.030 1.001 - 1.035 [facility] Transitional cells LM Ql (Urine sed) [facility] Urobilinogen Qn (U) 0.2 [facility] WBC LM.HPF (Urine sed) [#/Area] [facility] Monitor Recordon 01-30-2024 Monitor Record [id number]. 00TIFF Normal [facility] CBC w/ Auto Diffon 4 Basophils/100 WBC (Bld) 0.4 % Normal 0.0-2.0 [facility] Comment on above: Performed By: #### 1 [id number], 8759696, 2875947, 86096648, 12229963, 1702239, 3133644, 2935607 #### [facility] [address] [place] [address] Basophils/Leukocytes Auto (Bld) [Pure # fraction] 0.0 E9/L Normal 0.0-0.2 [facility] Comment on above: Performed By: #### 1 [id number], 1290041, 7714723, 43010263, 93716593, 4949197, 8734155, 9834851 #### [facility] [address] [place] [address] Eosinophils (Bld) [#/Vol] 0.2 E9/L Normal 0.0-0.5 [facility] Comment on above: Performed By: #### 1 4958962, 5115009, 3957838, 52300267, 30497001, 8363581, 9174576, 7598054 #### [facility] [address] [place] [address] Eosinophils/100 WBC (Bld) 3.3 % Normal 0.0-8.0 [facility] Comment on above: Performed By: #### 1 [id number], 6290615, 2909590, 25814642, 54101067, 7366956, 3827015, 1619163 #### [facility] [address] [place] [address] Erythrocyte distribution width (RBC) [Ratio] 12.9 % Normal 10.9-14.2 [facility] Comment on above: Performed By: #### 1 5621412, 1391967, 4439082, 11007969, 63474462, 8996828, 4383724, 7936501 #### [facility] [address] [place] [address] Hematocrit (Bld) [Volume fraction] 37.2 % Low 37.7-49.0 [facility] Comment on above: Performed By: #### 1 8502349, 1208299, 1378411, 56240709, 56548997, 8707760, 5144205, 5063111 #### [facility] [address] [place] [address] Hemoglobin (Bld) [Mass/Vol] 12.7 g/dL Low 13.5-17.5 [facility] Comment on above: Performed By: #### 1 2100469, 8489551, 5077123, 06631828, 46641357, 2238080, 1372463, 3921041 #### [facility] [address] [place] [address] Lymphocytes (Bld) [#/Vol] 1.5 E9/L Normal 1.0-4.0 [facility] Comment on above: Performed By: #### 1 4475208, 6978332, 1090019, 06677399, 13813600, 8363670, 6564398, 5513340 #### [facility] [address] [place] [address] Lymphocytes/100 WBC (Bld) 23.6 % Normal 14.0-50.0 [facility] Comment on above: Performed By: #### 1 5229998, 6945950, 5548756, 34533687, 40197187, 5627299, 7945937, 7991853 #### [facility] [address] [place] [address] MCH (RBC) [Entitic mass] 31.6 pg Normal 27.0-34.0 [facility] Comment on above: Performed By: #### 1 4137103, 0849744, 8386168, 22665616, 53636407, 7342810, 9877233, 8090747 #### [facility] [address] [place] [address] MCHC (RBC) [Mass/Vol] 34.2 g/dL Normal 31.4-36.0 [facility] Comment on above: Performed By: #### 1 5286643, 4808320, 4251492, 99793507, 93020158, 5395765, 9358507, 8709130 #### [facility] [address] [place] [address] MCV (RBC) [Entitic vol] 92.5 fL Normal 80.0-100.0 [facility] Comment on above: Performed By: #### 1 1156782, 9347772, 0915039, 57172891, 59462956, 6287504, 5613849, 0373877 #### [facility] [address] [place] [address] Monocytes (Bld) [#/Vol] 0.6 E9/L Normal 0.2-1.0 [facility] Comment on above: Performed By: #### 1 0909389, 6681930, 8244802, 19204488, 74116348, 3272833, 2680791, 3586796 #### [facility] [address] [place], [place] [address] Neutrophils (Bld) [#/Vol] 4.0 E9/L Normal 2.0-7.5 [facility] Comment on above: Performed By: #### 1 0446362, 9454671, 4597618, 02724306, 05458516, 9427394, 4942660, 9871683 #### [facility] [address] [place] [address] Neutrophils/100 WBC (Bld) 63.2 % Normal 36.0-75.0 [facility] Comment on above: Performed By: #### 1 [id number], [id number], [id number], [id number], [id number], [id number], [id number], [id number] #### [facility] [address] [place] [address] Platelet 132.0 E9/L Low 150.0-500.0 [facility] Comment on above: Performed By: #### 1 [id number], [id number], [id number], [id number], [id number], [id number], [id number], [id number] #### [facility] [address] [place] [address] Platelet mean volume (Bld) [Entitic vol] 8.7 fL Normal 6.4-10.8 [facility] Comment on above: Performed By: #### 1 [id number], [id number], [id number], [id number], [id number], [id number], [id number], [id number] #### [facility] [address] [place] [address] RBC (Bld) [#/Vol] 4.0 E12/L Low 4.3-5.9 [facility] Comment on above: Performed By: #### 1 [id number], [id number], [id number], [id number], [id number], [id number], [id number], [id number] #### [facility] [address] [place] [address] WBC corrected for nucl RBC Auto (Bld) [#/Vol] 6.3 E9/L Normal 4.0-11.0 [facility] Comment on above: Performed By: #### 1 [id number], [id number], [id number], [id number], [id number], 2774752, [id number], [id number] #### [facility] [address] [place] [address] Consent for PICC lineon 01-17 Consent for PICC line [id number]. 00TIFF Normal [facility] Consultation Noteon 01-29-20 Consultation Note Patient: STEVE WILLIAMSON Age: 59 years Sex: Male : 1965 Associated Diagnoses: None Author: Nikita Rodney M.D History of Present Illness 69-year-old male with past medical history of BPH, HLD recent biopsy of prostate done by Dr. García on 01/01/24 presented to ER on 01/24 due to fever and chills and burning with urination. in ER patient was found to have white blood cell count of 15.7 with positive UA and elevated PSA. He was recently admitted for similar symptoms and failed outpatient p.o. antibiotics of Levaquin. Patient was admitted for further workup and treatment. Consulted over the phone and condition the patient had been on ceftriaxone then switched to cefepime and then back to ceftriaxone when E. coli was found. He clinically has improved. Still having some pressure with urination. Plan is for him to go home with his PICC line and receive IV antibiotics given chronic prostatitis. Health Status Allergies: Allergic Reactions (Selected) Severity Not Documented Penicillins- Unknown and allergy, unspecified, not elsewhere classified. Current medications: Medications (6) Active Scheduled: (3) atorvastatin 40 mg Tab [F] 40 mg 1 tab(s), Oral, Daily ceftriaxone + Sodium Chloride 0.9% Minibag 50 mL 2,000 mg 1 EA, IV Piggyback, Daily enoxaparin 40 mg/0.4 mL SC Kena [F] 40 mg 0.4 mL, SubCutaneous, Daily Continuous: (1) Lactated Ringers 1,000 mL 1,000 mL, IV, 126 mL/hr PRN: (2) acetaminophen 325 mg Tab UD [F] 650 mg 2 tab(s), Oral, q6hr heparin flush 100 units/mL Soln 5 mL [F] 300 unit(s) 3 mL, IV Push, q12hr Problem list: All Problems At risk for falls / SNOMED CT 913452187 / Possible Problem added when Risk for Falls Careplan was initiated. BPH with urinary obstruction / SNOMED CT 6099060541 / Confirmed Chronic prostatitis / SNOMED CT 79245952 / Confirmed Acute glaucoma / SNOMED CT 89942089 / Confirmed Glaucoma / SNOMED CT 08569995 / Confirmed Heart murmur / SNOMED CT 198873548 / Confirmed High cholesterol / SNOMED CT 83871959 / Confirmed High cholesterol / SNOMED CT 16328437 / Confirmed Hyperlipemia / SNOMED CT 23673328 / Confirmed Knee pain, left / SNOMED CT 16810157 / Confirmed OAB (overactive bladder) / SNOMED CT 5491199075 / Confirmed Screen for colon cancer / SNOMED CT 425536237 / Confirmed Elevated PSA / SNOMED CT 0464440558 / Confirmed PIN (prostatic intraepithelial neoplasia) / SNOMED CT 192265906 / Confirmed Histories Past Medical History: Resolved Plantar fasciitis (964097236): Resolved. Comments: 03/07/2013 EDT 12:51 Lyubov Marquez RN RIGHT FOOT Family History: Hyperlipidemia Father Mother Procedure history: TRUS/Bx ([id number]) on 01/01/2024 at 58 Years. Colonoscopy ([id number]) on 10/26/2023 at 58 Years. Arthroscopy of knee ([id number]) on 05/07/2019 at 54 Years. Comments: 05/07/2019 13:06 Bernice Amaya RN A Left knee ANKLE FRACTURE. Comments: 03/07/2013 12:53 Lyubov Marquez RN LEFT ANKLE ORIF Physical Examination Vital Signs 01/29/2024 11:47 EDT Heart Rate Monitored 66 bpm 01/29/2024 11:47 EDT Systolic Blood Pressure 131 mmHg Diastolic Blood Pressure 77 mmHg Mean Arterial Pressure, Monitered 95 mmHg 01/29/2024 11:46 EDT Temperature Oral 36.5 DegC 01/29/2024 7:28 EDT Temperature Oral 36.7 DegC 01/29/2024 2:00 EDT Temperature Oral 36.7 DegC 01/28/2024 20:14 EDT Temperature Oral 36.7 DegC 01/28/2024 16:20 EDT Temperature Oral 36.6 DegC 01/28/2024 11:30 EDT Temperature Oral 36.6 DegC 01/28/2024 7:53 EDT Temperature Oral 36.8 DegC 01/28/2024 2:10 EDT Temperature Oral 36.8 DegC General: Alert and oriented. Eye: Pupils are equal, round and reactive to light. HENT: Normocephalic. Neck: Supple. Respiratory: Lungs are clear to auscultation. Cardiovascular: Normal rate, Regular rhythm. Gastrointestinal: Soft, Non-tender, Non-distended. Genitourinary: No costovertebral angle tenderness. Integumentary: Warm, Dry. Neurologic: Alert, Oriented. Review / Management Results review: All Results 01/29/2024 5:44 EDT WBC 6.3 E9/L HGB 12.7 gm/dL LOW Platelet 132.0 E9/L LOW 01/27/2024 6:57 EDT WBC 11.3 E9/L HI 01/26/2024 6:23 EST WBC 16.1 E9/L HI Creatinine 0.9 mg/dL 01/25/2024 15:03 EST Blood Culture Charcoal POS 01/25/2024 14:51 EST WBC 15.7 E9/L HI Creatinine 0.9 mg/dL Creatinine 0.9 mg/dL PSA 15.3 ng/mL HI PSA Free&Total 25.5 % PSA Free 3.9 ng/mL NA Blood Culture Charcoal NEG (In Progress) 01/25/2024 14:05 EST UA Spec Desc Clean Catch UA Color STRAW UA Clarity Cloudy UA Spec Grav <=1.005 UA pH 6.0 UA Protein 1+ UA Glucose Negative UA Ketones Negative UA Bili Negative UA Blood 3+ UA Nitrite Negative UA Urobilinogen 0.2 EU/dL UA Leuk Est 3+ UA RBC 21-30 /HPF UA Squam Epithelial 0-2 /HPF UA WBC >75 /HPF UA Bacteria 1+ /HPF Urine Culture POS . Radiology results: CT, IMPRESSION: There are no acute intra-abdominal changes. Urinary bladder is unremar (more content not included)... Normal [facility] Comment on above: Result Comment: Elec tronically Signed By: Nikita Rodney M.D\.br\Date and Time Signed: 01/29/24 13:22 EDT Discharge Instructionson Discharge Instructions [id number] TIFF Rylee Arellano [facility] Discharge Note-Nursingon Discharge Note-Nursing STEVE WILLIAMSON :1965 Visit Date:01/25/2024 Inpatient Discharge Instructions Your Care Team Admitting Physician - Christie LEVIN, [place] Consulting Physician - Nikita Rodney M.D Reason for Your Visit I have fever and burning sensation while urinating Your Diagnosis Prostatitis Sepsis UTI (urinary tract infection) Tests Performed CT Abdomen/Pelvis w/ Contrast CV PICC Line Insertion -- Results Pending -- XR Chest Single View Please visit your patient portal for your results or contact your primary care physician. This Is Your Medications List Misc Prescription (S.A.S (Saline, Administration of drug, Saline)) Misc Prescription (S.A.S.H (saline, Administration of drug, Saline, Heparin)) alfuzosin (alfuzosin 10 mg ER Tab) ceftriaxone (cefTRIAXone 2 g Inj) latanoprost ophthalmic (latanoprost Opth 0.005% Kena) rosuvastatin (rosuvastatin 20 mg Tab) [Image Removed: STOP]Stop taking these medications mirabegron (Myrbetriq 50 mg oral tablet, extended release) oxybutynin (oxybutynin 5 mg ER Tab) tadalafil (Cialis 20 mg Tab) Procedure History Transrectal biopsy of prostate using ultrasound (US) guidance (01/01/2024), Colonoscopy (10/26/2023), Arthroscopy of knee (05/07/2019), ANKLE FRACTURE. Discharge Vitals Temperature (Oral) 36.7 ?C Heart Rate (Monitored) 52 Respiratory Rate 18 Blood Pressure 135/79 Weight 81.5 kg What to do next Instructions From Your Doctor Event Name Event Result Pending Diagnostic Test Results None Pharmacy Information [facility] Discharge Instructions Please return to ER if symptoms change or worsen. Follow-up as instructed. Previously Scheduled Follow-Up Appointments Sunday 11:00 AM EDT With: Nadir GARCÍA MD Where: [facility] Discharge Note-Nursing STEVE WILLIAMSON :1965 Visit Date:01/25/2024 Inpatient Discharge Instructions Your Care Team Admitting Physician - Christie LEVIN, [place] Consulting Physician - Nikita Rodney M.D Reason for Your Visit I have fever and burning sensation while urinating Your Diagnosis Prostatitis Sepsis UTI (urinary tract infection) Tests Performed CT Abdomen/Pelvis w/ Contrast CV PICC Line Insertion -- Results Pending -- XR Chest Single View Please visit your patient portal for your results or contact your primary care physician. This Is Your Medications List Misc Prescription (S.A.S (Saline, Administration of drug, Saline)) Misc Prescription (S.A.S.H (saline, Administration of drug, Saline, Heparin)) alfuzosin (alfuzosin 10 mg ER Tab) ceftriaxone (cefTRIAXone 2 g Inj) latanoprost ophthalmic (latanoprost Opth 0.005% Kean) rosuvastatin (rosuvastatin 20 mg Tab) [Image Removed: STOP]Stop taking these medications mirabegron (Myrbetriq 50 mg oral tablet, extended release) oxybutynin (oxybutynin 5 mg ER Tab) tadalafil (Cialis 20 mg Tab) Procedure History Transrectal biopsy of prostate using ultrasound (US) guidance (01/01/2024), Colonoscopy (10/26/2023), Arthroscopy of knee (05/07/2019), ANKLE FRACTURE. Discharge Vitals Temperature (Oral) 36.7 ?C Heart Rate (Monitored) 52 Respiratory Rate 18 Blood Pressure 135/79 Weight 81.5 kg What to do next Instructions From Your Doctor Event Name Event Result Pending Diagnostic Test Results None Pharmacy Information [facility] Discharge Instructions Please return to ER if symptoms change or worsen. Follow-up as instructed. Previously Scheduled Follow-Up Appointments Sunday 11:00 AM EDT With: Nadir GARCÍA MD Where: [facility] Normal [facility] HEMATOLOGYOrdered By: Tonny Reyes on 01-29-2024 Basophils/100 WBC (Bld) 0.4 % Normal 0.0 - 2.0 % [facility] Basophils/Leukocytes Auto (Bld) [Pure # fraction] 0.0 E9/L Normal 0.0 - 0.2 E9/L [facility] Eosinophils (Bld) [#/Vol] 0.2 E9/L Normal 0.0 - 0.5 E9/L [facility] Eosinophils/100 WBC (Bld) 3.3 % Normal 0.0 - 8.0 % [facility] Erythrocyte distribution width (RBC) [Ratio] 12.9 % Normal 10.9 - 14.2 % [facility] Hematocrit (Bld) [Volume fraction] 37.2 % Low 37.7 - 49.0 % [facility] Hemoglobin (Bld) [Mass/Vol] 12.7 g/dL Low 13.5 - 17.5 gm/dL [facility] Lymphocytes (Bld) [#/Vol] 1.5 E9/L Normal 1.0 - 4.0 E9/L [facility] Lymphocytes/100 WBC (Bld) 23.6 % Normal 14.0 - 50.0 % [facility] MCH (RBC) [Entitic mass] 31.6 pg Normal 27. 0 - 34.0 pg [facility] MCHC (RBC) [Mass/Vol] 34.2 g/dL Normal 31.4 - 36.0 gm/dL [facility] MCV (RBC) [Entitic vol] 92.5 fL Normal 80.0 - 100.0 fL [facility] Monocytes (Bld) [#/Vol] 0.6 E9/L Normal 0.2 - 1.0 E9/L [facility] Monocytes/100 WBC (Bld) 9.5 % Normal 4.0 - 14.0 % [facility] Neutrophils (Bld) [#/Vol] 4.0 E9/L Normal 2.0 - 7.5 E9/L [facility] Neutrophils/100 WBC (Bld) 63.2 % Normal 36.0 - 75.0 % [facility] Platelet 132.0 E9/L Low 150.0 - 500.0 E9/L [facility] Platelet mean volume (Bld) [Entitic vol] 8.7 fL Normal 6.4 - 10.8 fL [facility] RBC (Bld) [#/Vol] 4.0 E12/L Low 4.3 - 5.9 E12/L [facility] WBC corrected for nucl RBC Auto (Bld) [#/Vol] 6.3 E9/L Normal 4.0 - 11.0 E9/L [facility] Inpatient Clinical Summaryon 01-29-2024 Inpatient Clinical Summary [place] [address] Clinical Summary Person Information: Name: STEVE WILLIAMSON Age: 59 Years : 1965 Sex: Male PCP: DELPHINE BERRY NP Marital Status: Race: White Ethnicity: Non- or Language: Sri Lankan Visit Id: Visit Reason: [id number] -BURNING W/URINATION Speciality: Acuity: Enc Type: Inpatient Med Service: Medical Arrival: 01/25/2024 13:32:51 Discharge: Dispo Type: Admitted as IP to this Hosp Address: [address] [place] [phone] Provider Notes: Diagnosis: Prostatitis; Sepsis; UTI (urinary tract infection) Problems Active OAB (overactive bladder) Chronic prostatitis PIN (prostatic intraepithelial neoplasia) BPH with urinary obstruction Glaucoma Heart murmur Hyperlipemia Elevated PSA Screen for colon cancer Smoking Status: Never Smoker Functional Status: Sensory Deficits: History of Falls: Mobility Assistance Prior to Admission: ADLs: Independent Current Level of Assistance for Self-Care/Mobility: Cognitive Status: Oriented x 3 Allergies penicillins (Unknown) () Measurements: Height: 175.26 cm Weight: 81.5 kg Blood Pressure: 131 mmHg / 77 mmHg BMI: 26.57 kg/m2 Procedures No Procedures Documented Immunizations No Immunizations Documented This Visit Final Med List: alfuzosin (alfuzosin 10 mg ER Tab) 1 Tablets By Mouth every day. Refills: 11. ceftriaxone (cefTRIAXone 2 g Inj) 2 Gram Intravenous Piggyback every day. Refills: 0. latanoprost ophthalmic (latanoprost Opth 0.005% Kena) 1 Drops Ophthalmic once a day (at bedtime). Misc Prescription (S.A.S (Saline, Administration of drug, Saline)) 0. Refills: 0. Misc Prescription (S.A.S.H (saline, Administration of drug, Saline, Heparin)) 0. Refills: 0. rosuvastatin (rosuvastatin 20 mg Tab) 1 Tablets By Mouth every day. Care Team Members: Attending Physician: Louisa Soriano MD Consulting Physician: Nikita Rodney M.D Referring Physician: Follow up: With: Address: When: Nikita Rodney [address] [facility] [place] [address] Business (1) Within 2 to 4 weeks With: Address: When: DELPHINE BERRY NP [address] [place] [id number] Business (1) Within 5 to 7 days Comments: Call for followup appointment With: Address: When: RICKY LEVIN, Nadir Mercado, L [facility] [address], [place] [address] Within 2 weeks Comments: Call for followup appointment Type Location Start [facility] Office Visit [facility] Mandeep 08/01/2024 11:00 AM 08/01/2024 11:15 AM Confirmed Patient Education Information: PICC Home Care Guide; Prostatitis, Cxaq-lo-Uolx Normal [facility] Inpatient Patient Summaryon 01-29-2024 Inpatient Patient Summary [address] [address] Patient Discharge Instructions PERSON INFORMATION Name: STEVE WILLIAMSON Date of : 1965 Current Date: 01/29/2024 13:23:00 PHYSICIANS Admitting Physician: Louisa Soriano MD Primary Care Physician: DELPHINE BERRY NP PCP Comment: Discharge Diagnosis: Prostatitis; Sepsis; UTI (urinary tract infection) Condition at Discharge: Improved STEVE WILLIAMSON has been given the following list of follow-up instructions, prescriptions, and patient education materials: PATIENT FOLLOW-UP INFORMATION Diet: Discharge Activity: Discharge Restrictions: Wound Care Instructions: Remove Your Dressing In Days Call Your Doctor For: IF UNABLE TO CONTACT YOUR PHYSICIAN AND YOU FEEL IT IS AN EMERGENCY, GO TO THE NEAREST EMERGENCY ROOM OR CALL 911 Home Treatment: Devices/Equipment: None Special Services: Additional Instructions: Please return to ER if symptoms change or worsen. Follow-up as instructed. Primary Care Physician to provide the following pending test results: None Follow up: With: Address: When: Nikita Rodney [address] [place] [address] Business (1) Within 2 to 4 weeks With: Address: When: KRISTI MENA, [address] [address] Business (1) Within 5 to 7 days Comments: Call for followup appointment With: Address: When: RICKY LEVIN, Nadir R, [facility] [address], [place] [address] Within 2 weeks Comments: Call for followup appointment In the event that this physician does not participate in your insurance network, please consult with your insurance company to find a nearby participating provider. Type Location Start [facility] Office Visit [facility] NOAH [place] 08/01/2024 11:00 AM 08/01/2024 11:15 AM Confirmed Comment: IDORA GREGORY A, have received the attached patient education materials/instructions and have verbalized understanding: Patient Signature Date Clinican/Nurse Signature ___ Date HERE ARE THE MEDICATION CHANGES THAT OCCURRED DURING YOUR HOSPITAL STAY New Medications Printed Prescriptions ceftriaxone (cefTRIAXone 2 g Inj) 2 Gram Intravenous Piggyback every day. Refills: 0. Last Dose: ___Next Dose: ___ Misc Prescription (S.A.S (Saline, Administration of drug, Saline)) 0. Refills: 0. Last Dose: ___Next Dose: ___ Misc Prescription (S.A.S.H (saline, Administration of drug, Saline, Heparin)) 0. Refills: 0. Last Dose: ___Next Dose: ___ Medications to Continue with No Changes Other Medications alfuzosin (alfuzosin 10 mg ER Tab) 1 Tablets By Mouth every day. Refills: 11. Last Dose: ___Next Dose: ___ latanoprost ophthalmic (latanoprost Opth 0.005% Kena) 1 Drops Ophthalmic once a day (at bedtime)., glaucoma Last Dose: ___Next Dose: ___ rosuvastatin (rosuvastatin 20 mg Tab) 1 Tablets By Mouth every day. Last Dose: ___Next Dose: ___ No Longer Take the Following Medications mirabegron (Myrbetriq 50 mg oral tablet, extended release) 1 Tablets By Mouth every day. Refills: 11. oxybutynin (oxybutynin 5 mg ER Tab) 1 Tablets By Mouth every day. Refills: 11. tadalafil (Cialis 20 mg Tab) 1 Tablets By Mouth As Directed. PRN for sexual activity. Do not exceed 20mg within 48 hours.. Refills: 4. Comment: MEDICATION LIST PROVIDED FOR YOU IS A LIST OF YOUR CURRENT MEDICATIONS. PLEASE CARRY THIS WITH YOU AT ALL TIMES. alfuzosin (alfuzosin 10 mg ER Tab) 1 Tablets By Mouth every day. Refills: 11. ceftriaxone (cefTRIAXone 2 g Inj) 2 Gram Intravenous Piggyback every day. Refills: 0. latanoprost ophthalmic (latanoprost Opth 0.005% Kena) 1 Drops Ophthalmic once a day (at bedtime). Misc Prescription (S.A.S (Saline, Administration of drug, Saline)) 0. Refills: 0. Misc Prescription (S.A.S.H (saline, Administration of drug, Saline, Heparin)) 0. Refills: 0. rosuvastatin (rosuvastatin 20 mg Tab) 1 Tablets By Mouth every day. Pharmacy Information: [facility] , Mail Order Comment: PATIENT EDUCATION INFORMATION Instructions: PICC Home Care Guide A peripherally inserted central catheter (PICC) is a form of IV access that allows medicines and IV fluids to be quickly put into the blood and spread throughout the body. The PICC is a long, thin, flexible tube (catheter) that is put into a vein in a person's arm or leg. The catheter ends in a large vein just outside the heart called the superior vena cava (SVC). After the PICC is put in, a chest X-ray may be done to make sure that it is in the right pl (more content not included)... [facility] Insurance Correspondence Off ice01-29-2024 Insurance Correspondence Office [id number]#1. 00TIFF [facility] Interdisciplinary Note - Merrill e Manageron 01-29-2024 Interdisciplinary Note - Early Childhood Services Coordinator CRM to room to discuss DC planning. Patient is from home with his spouse. He will have transport at [place]. Patient verified PCP, home DME and insurance. Patient is here with Fever, Chills, Body aches. Has Bacteremia. Patient is assigned to Dr Brown. Patient will be seen by ID on Sunday. Patient will need antibiotics at [place]. The script was sent and patient is 100% coverage. Patient was accepted to [facility] for RN. Patient denied any DME needs. Patient was provided CRM contact, white board updated. CRM following Patient will DC home later today, see Dr Dumont notes. [facility] Comment on above: Result Comment: Elec tronically Signed By: Elba Guo\.br\Date and Time Signed: 01/29/24 09:47 EDT Interdisciplinary Note - Merrill e Manageron 01-28-2024 Interdisciplinary Note - Early Childhood Services Coordinator CRM to room to discuss DC planning. Patient is from home with his spouse. He will have transport at DC. Patient verified PCP, home DME and insurance. Patient is here with Fever, Chills, Body aches. Has Bacteremia. Patient is assigned to Dr Brown. Patient will be seen by ID on Sunday. Patient will need antibiotics at [place]. He prefers HH route and he will learn administration. Patient denied any DME needs. Patient was provided CRM contact, white board updated. CRM following CRM placed HH referrals, will await acceptance 205 needs PICC and Rocephin 2000mg daily for [address] Brown, will send for IV med script will be sent today and await approval from and home infusion company [facility] has accepted, still waiting on final readiness from [facility] Normal [facility] Comment on above: Result Comment: Elec tronically Signed By: Elba Guo\.br\Date and Time Signed: 01/28/24 16:05 EDT Monitor Recordon 01-28-2024 Monitor Record [id number]#1. 00TIFF [facility] Monitor Record [id number]#1. 00TIFF [facility] Progress Note-Physicianon Progress Note-Physician Assessment/Plan Prostatitis (N41.9: Inflammatory disease of prostate, unspecified) Blood cultures positive for E. coli 1 out of 2 bottles BCx similar to urine culture Called and spoke with ID who recommended 6 weeks total of IV Rocephin 2 g QD until 03/07 weekly PSA levels Will try to get PICC line in today or tomorrow Ordered: ceftriaxone, 2 gm, IV Piggyback, Daily, # 38 EA, Refills(s) 0 Hospital Discharge Day > 30 Min 43158 PSA Total PSA Total PSA Total PSA Total PSA Total PSA Total Sbsq Hospital Care/Day Moderate 35 Minutes 28059 Sepsis (A41.9: Sepsis, unspecified organism) 2/2 above wbc trending down on Ctx 2g daily from cefepime UTI (urinary tract infection) (N39.0: Urinary tract infection, site not specified) tx as above Orders: ceftriaxone + Sodium Chloride 0.9% intravenous solution 50 mL, 2,000 mg = 1 EA, Injection, IV Piggyback, Daily, Routine, Start date 01/29/24 9:00:00 EDT, 100 mL/hr, Infuse over 30 minute(s) Misc Prescription, S.A.S.H (saline, Administration of drug, Saline, Heparin), Print Requisition, Supply Misc Prescription, S.A.S (Saline, Administration of drug, Saline), Print Requisition, Supply CBC w/ Auto Diff CV PICC Line Insertion Referral to Resource Center Referral to Resource Center Subjective Patient seen and examined. No acute events overnight. Patient afebrile. Objective Vitals & Measurements T: 36.6 ?C(Oral) TMIN: 36.6 ?C(Oral) TMAX: 36.8 ?C(Oral) HR: 59(Monitored) RR: 18 BP: 146/77 SpO2: 95% HT: 175.26 cm WT: 86.0 kg Intake & Output This visit (24 hour periods starting at 07:00 EDT) 01/28/24 * 01/27/24 01/26/24 Total Summary Intake mL -- 1,952.63 250 Output mL -- -- -- Fluid Balance -- 1,952.63 250 Intake (4) Generic Diluent, vancomycin mL -- -- 250 Lactated Ringers Injection 1,000 mL mL -- 1,417.56 -- Oral Intake mL -- 480 -- Sodium Chloride 0.9%, cefepime mL -- 55.07 -- Total -- 1,952.63 250 Output (0) Counts (1) Urine Count -- 4 -- * This column has not completed the indicated time period. Indicates a 23 hour day. Physical Exam General: Looks well, no acute distress, well-nourished, well-kept Skin: Warm, dry Head: No trauma, normocephalic Neck: Trachea midline, supple, negative for JVD Eye: Conjunctive are clear, clear sclera , EOMI ENMT: oral mucosa moist, no lesions or edema nose or external ears Cardiovascular: Regular rate and rhythm, S1-S2 present, negative for murmurs rubs or gallops Respiratory: Lungs clear to auscultation, bilateral symmetric movement, negative for wheezes rales or rhonchi Chest wall: no deformity. Gastrointestinal: Abdomen soft, nontender to palpation, bowel sounds present Back: No tenderness Extremities: Range of motion intact, no edema Neurological: awake, alert, speech normal, cranial nerves II through XII intact, no sensory defects, alert and oriented x3 Psychiatric: cooperative, affect appropriate for age, pleasant Lab Results No qualifying data available. Problem List/Past Medical History Ongoing BPH with urinary obstruction Chronic prostatitis Elevated PSA Glaucoma Heart murmur Hyperlipemia OAB (overactive bladder) PIN (prostatic intraepithelial neoplasia) Screen for colon cancer Historical Plantar fasciitis Medications Inpatient acetaminophen 325 mg Tab, 650 mg= 2 tab(s), Oral, q6hr, PRN atorvastatin 40 mg Tab, 40 mg= 1 tab(s), Oral, Daily ceftriaxone additive + Sodium Chloride 0.9% intravenous solution 50 mL Lactated Ringers IV Kena 1000 mL 1,000 mL, 1000 mL, IV Lovenox 40 mg/0.4 mL SC Kena, 40 mg= 0.4 mL, SubCutaneous, Daily Home alfuzosin 10 mg ER Tab, 10 mg= 1 tab(s), Oral, Daily, 11 refills cefTRIAXone 2 g Inj, 2 gm, IV Piggyback, Daily latanoprost Opth 0.005% Kena, 1 drop(s), OPTH, Once a day (at bedtime) rosuvastatin 20 mg Tab, 20 mg= 1 tab(s), Oral, Daily S.A.S (Saline, Administration of drug, Saline), 0 S.A.S.H (saline, Administration of drug, Saline, Heparin), 0 Normal [facility] Comment on above: Result Comment: Elec tronically Signed By: Rod Brown DO.br\Date and Time Signed: 01/28/24 15:45 EDT XR Chest Single Viewon 01-27 XR Chest Single View Exam Date/Time: 01/28/2024 16:18 EDT Reason for Exam: PICC line placement Report IMPRESSION: Interval placement of PICC. EXAMINATION: XR Chest Single View Clinical History: PICC line placement Comparison: 01/25/2024. RESULT: Interval placement of right PICC with tip near the superior cavoatrial junction. Shallow inspiration. No distinct focal consolidation. No large pleural effusion. No pneumothorax. Stable cardiomediastinal silhouette. No acute osseous findings. Ordering Provider: Rod Brown FINAL REPORT Dictated: 01/28/2024 4:27 pm Onel Xiao MD Signed (Electronic Signature): 01/28/2024 4:27 pm Signed by: Onel Xiao MD Transcribed by: JASON Technologist: KASEY Technical Comments Radiation Dose: Ka,r in mGy = na DAP = na Normal [facility] C Urineon 01-27-2024 Bacteria identified Cx Nom (U) Microbiology PROCEDURE: Urine Culture [R1] SOURCE: U CleanCatch BODY SITE: COLLECTED DATE/TIME: 01/25/2024 14:05 EST RECEIVED DATE/TIME: 01/25/2024 15:07 EST START DATE/TIME: 01/25/2024 15:08 EST FREE TEXT SOURCE: Jaden Chacon PA-C, PA-C, Jaden FINAL REPORTS Final Report [] Verified Date/Time: 01/27/2024 09:13 EDT >100,000 cfu/ml Escherichia coli SUSCEPTIBILITY RESULTS __ LEGEND: S=Susceptible, N/R=Not Reported, Blank=Data not available, or drug not advisable or tested, I=Intermediate, ESBL=Extended spectrum beta-lactamase, R=Resistant, TFG=Thymidine-dependen t strain, FRANKY=Beta-lactamase positive, EUGENE=mcg/m;(mg/L), S*=Predicted susceptible interp, R*=Predicted resistant interp EC Antibiotic EUGENE Dilutn EUGENE Interp Amikacin <=16 S Ampicillin >16 R Ampicillin/ >16/8 R Sulbactam Aztreonam <=4 S Cefazolin <=2 S Cefepime <=2 S Cefoxitin <=8 S Ceftazidime <=1 S Ceftazidime/ <=8 S Avibactam Ceftriaxone <=1 S Ciprofloxacin >2 R Ertapenem <=0.5 S Gentamicin <=4 S Levofloxacin >4 R Meropenem <=1 S Nitrofurantoin <=32 S Piperacillin/ <=16 S Tazobactam Tetracycline <=4 S Tigecycline <=2 S Tobramycin <=4 S Trimethoprim/ <=2/38 S Sulfa Performing Locations R1: This test was performed at: [facility], [address] [place] [address], [address] , , Normal [facility] Comment on above: Performed By: #### 1 [id number], [id number], 8286110, [id number], 64422733, 8244669, 9553070, 5582964 #### [facility] [address] [place] [address] CBC w/ Auto Diffon 4 Basophils/100 WBC (Bld) 0.2 % Normal 0.0-2.0 [facility] Comment on above: Performed By: #### 2 [id number] #### [facility] [address] [place] [address] Basophils/Leukocytes Auto (Bld) [Pure # fraction] 0.0 E9/L Normal 0.0-0.2 [facility] Comment on above: Performed By: #### 2 [id number] #### [facility] [address] [place] [address] Eosinophils (Bld) [#/Vol] 0.1 E9/L Normal 0.0-0.5 [facility] Comment on above: Performed By: #### 2 [id number] #### [facility] [address] [place] [address] Eosinophils/100 WBC (Bld) 1.0 % Normal 0.0-8.0 [facility] Comment on above: Performed By: #### 2 [id number] #### [facility] [address] [place] [address] Erythrocyte distribution width (RBC) [Ratio] 12.8 % Normal 10.9-14.2 [facility] Comment on above: Performed By: #### 2 [id number] #### [facility] [address] [place] [address] Hematocrit (Bld) [Volume fraction] 39.9 % Normal 37.7-49.0 [facility] Comment on above: Performed By: #### 2 139154 #### [facility] [address] [place] [address] Hemoglobin (Bld) [Mass/Vol] 13.3 g/dL Low 13.5-17.5 [facility] Comment on above: Performed By: #### 2 688858 #### [facility] [address] [place] [address] Lymphocytes (Bld) [#/Vol] 0.9 E9/L Low 1.0-4.0 [facility] Comment on above: Performed By: #### 2 938458 #### [facility] [address] [place] [address] Lymphocytes/100 WBC (Bld) 7.8 % Low 14.0-50.0 [facility] Comment on above: Performed By: #### 2 552973 #### [facility] [address] [place] [address] MCH (RBC) [Entitic mass] 31.0 pg Normal 27.0-34.0 [facility] Comment on above: Performed By: #### 2 644915 #### [facility] [address] [place] [address] MCHC (RBC) [Mass/Vol] 33.4 g/dL Normal 31.4-36.0 [facility] Comment on above: Performed By: #### 2 394767 #### [facility] [address] [place] [address] MCV (RBC) [Entitic vol] 92.9 fL Normal 80.0-100.0 [facility] Comment on above: Performed By: #### 2 783868 #### [facility] [address] [place] [address] Monocytes (Bld) [#/Vol] 1.0 E9/L Normal 0.2-1.0 [facility] Comment on above: Performed By: #### 2 665842 #### [facility] [address] [place] [address] Neutrophils (Bld) [#/Vol] 9.3 E9/L High 2.0-7.5 [facility] Comment on above: Performed By: #### 2 993643 #### [facility] [address] [place] [address] Neutrophils/100 WBC (Bld) 82.2 % High 36.0-75.0 [facility] Comment on above: Performed By: #### 2 631234 #### [facility] [address] [place] [address] Platelet 121.0 E9/L Low 150.0-500.0 [facility] Comment on above: Performed By: #### 2 504481 #### [facility] [address] [place] [address] Platelet mean volume (Bld) [Entitic vol] 8.2 fL Normal 6.4-10.8 [facility] Comment on above: Performed By: #### 2 868606 #### [facility] [address] [place] [address] RBC (Bld) [#/Vol] 4.3 E12/L Normal 4.3-5.9 [facility] Comment on above: Performed By: #### 2 812983 #### [facility] [address] [place] [address] WBC corrected for nucl RBC Auto (Bld) [#/Vol] 11.3 E9/L High 4.0-11.0 [facility] Comment on above: Performed By: #### 2 [id number] #### [facility] [address] [place] [address] HEMATOLOGYOrdered By: SYSTEM SYSTEM on 01-27-2024 Basophils/100 WBC (Bld) 0.2 % Normal 0.0 - 2.0 % Remisol Heme Basophils/Leukocytes Auto (Bld) [Pure # fraction] 0.0 E9/L Normal 0.0 - 0.2 E9/L Remisol Heme Eosinophils (Bld) [#/Vol] 0.1 E9/L Normal 0.0 - 0.5 E9/L Remisol Heme Eosinophils/100 WBC (Bld) 1.0 % Normal 0.0 - 8.0 % Remisol Heme Erythrocyte distribution width (RBC) [Ratio] 12.8 % Normal 10.9 - 14.2 % Remisol Heme Hematocrit (Bld) [Volume fraction] 39.9 % Normal 37.7 - 49.0 % Remisol Heme Hemoglobin (Bld) [Mass/Vol] 13.3 g/dL Low 13.5 - 17.5 gm/dL Remisol Heme Lymphocytes (Bld) [#/Vol] 0.9 E9/L Low 1.0 - 4.0 E9/L Remisol Heme Lymphocytes/100 WBC (Bld) 7.8 % Low 14.0 - 50.0 % Remisol Heme MCH (RBC) [Entitic mass] 31.0 pg Normal 27. 0 - 34.0 pg Remisol Heme MCHC (RBC) [Mass/Vol] 33.4 g/dL Normal 31.4 - 36.0 gm/dL Remisol Heme MCV (RBC) [Entitic vol] 92.9 fL Normal 80.0 - 100.0 fL Remisol Heme Monocytes (Bld) [#/Vol] 1.0 E9/L Normal 0.2 - 1.0 E9/L Remisol Heme Monocytes/100 WBC (Bld) 8.8 % Normal 4.0 - 14.0 % Remisol Heme Neutrophils (Bld) [#/Vol] 9.3 E9/L High 2.0 - 7.5 E9/L Remisol Heme Neutrophils/100 WBC (Bld) 82.2 % High 36.0 - 75.0 % Remisol Heme Platelet 121.0 E9/L Low 150.0 - 500.0 E9/L Remisol Heme Platelet mean volume (Bld) [Entitic vol] 8.2 fL Normal 6.4 - 10.8 fL Remisol Heme RBC (Bld) [#/Vol] 4.3 E12/L Normal 4.3 - 5.9 E12/L Remisol Heme WBC corrected for nucl RBC Auto (Bld) [#/Vol] 11.3 E9/L High 4.0 - 11.0 E9/L Remisol Heme Monitor Recordon 01-27-2024 Monitor Record [id number]#1. 00TIFF Normal [facility] Monitor Record [id number]#1. 00TIFF Normal [facility] Monitor Record [id number]#1. 00TIFF Normal [facility] Monitor Record [id number]#1. 00TIFF Normal [facility] Progress Note - Pharmacyon 0 01-27-2024 Progress Note - Pharmacy Vancomycin Phar nico to Dose Consult Note 1. Vanco Status: Vancomycin therapy has been discontinued. Vancomycin level(s) have been discontinued: Pharmacy vancomycin dosing service will sign off. Thank you for allowing us to participate in this patient's care. Please contact pharmacy if there are questions. Normal [facility] Progress Note-Physicianon Progress Note-Physician Basic Informatio n 59 y/o M w/mhx of prostate biopsy who is admitted for sepsis Assessment/plan Prostatitis Sepsis Abnormal UA Bacteremia -Blood cultures: 1 bottle GNR -Urine cultures: E coli resistant to FQ hence the failed outpatient to Levaquin, was broadened to Cefepime today, if blood returns same as e coli likely can de-escalate to CTX. -Likely need PICC tomorrow 01/28/24 and plan for 6 weeks of antibox, please discuss w/ID -DC Vancomycin -CT abdomen pelvis negative for abscess -Consulted ID -Continue to monitor Chronic Medical Conditions -med rec Time: 35 mins Plan: As above DVT PPX: Lovenox Subjective The patient was seen and examined No acute complaints Review of Systems The patient denies any fevers, chills, changes in vision, nausea, vomiting, chest pain, palpitations, chest tightness, wheezing, abdominal pain, lower limb swelling, blood in the commode. Objective Vitals & Measurements T: 36.8 ?C(Oral) TMIN: 36.8 ?C(Oral) TMAX: 37.9 ?C(Oral) HR: 69(Monitored) BP: 114/69 SpO2: 93% WT: 84.4 kg Intake & Output This visit (24 hour periods starting at 07:00 EDT) 01/27/24 * 01/26/24 01/25/24 Total Summary Intake mL -- 250 2,400 Output mL -- -- -- Fluid Balance -- 250 2,400 Intake (4) Generic Diluent, acetaminophen mL -- -- 100 Generic Diluent, vancomycin mL -- 250 250 Sodium Chloride 0.9% mL -- -- 2,000 Sodium Chloride 0.9%, ceftriaxone mL -- -- 50 Total -- 250 2,400 Output (0) Counts (0) * This column has not completed the indicated time period. Indicates a 23 hour day. Physical Exam General: alert, no acute distress Psychiatric: cooperative, affect appropriate for age Neurological: awake, alert, oriented, speech normal Cardiovascular: no overt murmurs Respiratory: no adventitious breath sounds Gastrointestinal: soft NT, NG, NR Extremities: no rash Lab Results WBC: 11.3 E9/L High (01/27/24 06:57:00) RBC: 4.3 E12/L (01/27/24 06:57:00) HGB: 13.3 gm/dL Low (01/27/24 06:57:00) Hct: 39.9 % (01/27/24 06:57:00) MCV: 92.9 fL (01/27/24 06:57:00) MCH: 31 pg (01/27/24 06:57:00) MCHC: 33.4 gm/dL (01/27/24 06:57:00) RDW: 12.8 % (01/27/24 06:57:00) Platelet: 121 E9/L Low (01/27/24 06:57:00) MPV: 8.2 fL (01/27/24 06:57:00) Neutro Auto: 82.2 % High (01/27/24 06:57:00) Lymph Auto: 7.8 % Low (01/27/24 06:57:00) Stevens Auto: 8.8 % (01/27/24 06:57:00) Eos Auto: 1 % (01/27/24 06:57:00) Basophil Auto: 0.2 % (01/27/24 06:57:00) Neutro Absolute: 9.3 E9/L High (01/27/24 06:57:00) Lymph Absolute: 0.9 E9/L Low (01/27/24 06:57:00) Stevens Absolute: 1 E9/L (01/27/24 06:57:00) Eos Absolute: 0.1 E9/L (01/27/24 06:57:00) Basophil Absolute: 0 E9/L (01/27/24 06:57:00) Problem List/Past Medical History Ongoing BPH with urinary obstruction Chronic prostatitis Elevated PSA Glaucoma Heart murmur Hyperlipemia OAB (overactive bladder) PIN (prostatic intraepithelial neoplasia) Screen for colon cancer Historical Plantar fasciitis Medications Inpatient acetaminophen 325 mg Tab, 650 mg= 2 tab(s), Oral, q6hr, PRN atorvastatin 40 mg Tab, 40 mg= 1 tab(s), Oral, Daily cefepime + Sodium Chloride 0.9% intravenous solution 50 mL Lactated Ringers IV Kena 1000 mL 1,000 mL, 1000 mL, IV Lovenox 40 mg/0.4 mL SC Kena, 40 mg= 0.4 mL, SubCutaneous, Daily Home alfuzosin 10 mg ER Tab, 10 mg= 1 tab(s), Oral, Daily, 11 refills Cialis 20 mg Tab, 20 mg= 1 tab(s), Oral, As Directed, 4 refills, Not taking latanoprost Opth 0.005% Kena, 1 drop(s), OPTH, Once a day (at bedtime) Myrbetriq 50 mg oral tablet, extended release, 50 mg= 1 tab(s), Oral, Daily, 11 refills, Not taking oxybutynin 5 mg ER Tab, 5 mg= 1 tab(s), Oral, Daily, 11 refills, Not taking rosuvastatin 20 mg Tab, 20 mg= 1 tab(s), Oral, Daily Normal [facility] Comment on above: Result Comment: Elec tronically Signed By: Christie LEVIN, Louisa\.br\Date and Time Signed: 01/27/24 11:17 EDT BMPon 01-26-2024 Anion gap [Moles/Vol] 12 mmol/L Normal 6-16 [facility] Comment on above: Performed By: #### 1 [id number], 6610870, 0666321, 09220802, 36233525, 9505942, 1790585, 0642627 #### [facility] [address] [place] [address] Calcium [Mass/Vol] 9.2 mg/dL Normal 8.9-11.1 [facility] Comment on above: Performed By: #### 1 3720565, 0050586, 8910073, 98838347, 01967232, 4884647, 3694756, 6681239 #### [facility] [address] [place] [address] Chloride [Moles/Vol] 104 mmol/L Normal 101-111 [facility] Comment on above: Performed By: #### 1 9945261, 2481885, 8047215, 96493818, 05170728, 8320322, 8498973, 6920415 #### [facility] [address] [place] [address] CO2 [Moles/Vol] 27 mmol/L Normal 21-31 [facility] Comment on above: Performed By: #### 1 8467126, 2110781, 6762956, 59517515, 89977669, 5536807, 3263282, 1215158 #### [facility] [address] [place] [address] Creatinine [Mass/Vol] 0.9 mg/dL Normal 0.5-1.3 [facility] Comment on above: Performed By: #### 1 8003386, 7177667, 9803110, 72945911, 18219137, 5018020, 1184572, 5943188 #### [facility] [address] [place] [address] Glucose [Mass/Vol] 100 mg/dL Normal 55-199 [facility] Comment on above: Performed By: #### 1 3553648, 6635254, 6893743, 09929845, 73505871, 2331668, 6876566, 1173111 #### [facility] [address] [place] [address] Potassium [Moles/Vol] 4.0 mmol/L Normal 3.5-5.3 [facility] Comment on above: Performed By: #### 1 2505136, 4676055, 4927561, 17225533, 99836144, 4876963, 3733450, 7549552 #### [facility] [address] [place] [address] Sodium [Moles/Vol] 139 mmol/L Normal 135-145 [facility] Comment on above: Performed By: #### 1 0018826, 5957472, 8377517, 94484123, 21051190, 0086926, 3925079, 4318782 #### [facility] [address] [place] [address] Urea nitrogen [Mass/Vol] 12 mg/dL Normal 5-21 [facility] Comment on above: Performed By: #### 1 2029133, 1724824, 8161381, 28546897, 12108580, 2437251, 9410890, 6932909 #### [facility] [address] [place] [address] Urea nitrogen/Creatinine [Mass ratio] 13 No Units Normal 10-20 [facility] Comment on above: Performed By: #### 1 8932107, 3029470, 8423741, 58429123, 16307287, 3016971, 1940219, 4159467 #### [facility] [address] [place] [address] CBC w/ Auto Diffon 4 Basophils/100 WBC (Bld) 0.1 % Normal 0.0-2.0 [facility] Comment on above: Performed By: #### 1 9372943, 0262935, 8430659, 39957996, 61350047, 1476968, 0843285, 9938655 #### [facility] [address] [place] [address] Basophils/Leukocytes Auto (Bld) [Pure # fraction] 0.0 E9/L Normal 0.0-0.2 [facility] Comment on above: Performed By: #### 1 9547898, 8524096, 3685998, 06120152, 86240046, 0492472, 3812729, 7254775 #### [facility] [address] [place] [address] Eosinophils (Bld) [#/Vol] 0.0 E9/L Normal 0.0-0.5 [facility] Comment on above: Performed By: #### 1 8494320, 3312852, 1030254, 89804499, 11014213, 9118471, 8112821, 4734609 #### [facility] [address] [place] [address] Eosinophils/100 WBC (Bld) 0.3 % Normal 0.0-8.0 [facility] Comment on above: Performed By: #### 1 1239188, 2150469, 5130822, 54724020, 27651809, 7162096, 8646312, 2522825 #### [facility] [address] [place] [address] Erythrocyte distribution width (RBC) [Ratio] 12.9 % Normal 10.9-14.2 [facility] Comment on above: Performed By: #### 1 2195286, 9587853, 1263838, 65940349, 50561903, 2125821, 7868731, 2101369 #### [facility] [address] [place] [address] Hematocrit (Bld) [Volume fraction] 43.0 % Normal 37.7-49.0 [facility] Comment on above: Performed By: #### 1 7476169, 9592611, 4408614, 17437811, 25389189, 6888269, 5476687, 5359088 #### [facility] [address] [place] [address] Hemoglobin (Bld) [Mass/Vol] 14.3 g/dL Normal 13.5-17.5 [facility] Comment on above: Performed By: #### 1 3269170, 0933885, 4211819, 09711288, 77002475, 8442985, 0259548, 3388400 #### [facility] [address] [place] [address] Lymphocytes (Bld) [#/Vol] 1.3 E9/L Normal 1.0-4.0 [facility] Comment on above: Performed By: #### 1 6291028, 0383798, 3264379, 00948131, 13857188, 7958924, 8783060, 2894657 #### [facility] [address] [place] [address] Lymphocytes/100 WBC (Bld) 8.0 % Low 14.0-50.0 [facility] Comment on above: Performed By: #### 1 1943413, 8578938, 8193202, 92117237, 78532364, 2772236, 9943100, 2705911 #### [facility] [address] [place] [address] MCH (RBC) [Entitic mass] 31.0 pg Normal 27.0-34.0 [facility] Comment on above: Performed By: #### 1 0612075, 3197564, 8093543, 00772112, 02987176, 0353828, 4037662, 7706409 #### [facility] [address] [place] [address] MCHC (RBC) [Mass/Vol] 33.3 g/dL Normal 31.4-36.0 [facility] Comment on above: Performed By: #### 1 9256760, 4391687, 0197366, 42665269, 09230338, 2537467, 4568153, 8315717 #### [facility] [address] [place] [address] MCV (RBC) [Entitic vol] 93.1 fL Normal 80.0-100.0 [facility] Comment on above: Performed By: #### 1 7563165, 6083877, 5161615, 78140566, 40361806, 0947354, 1842080, 5062458 #### [facility] [address] [place] [address] Monocytes (Bld) [#/Vol] 1.2 E9/L High 0.2-1.0 [facility] Comment on above: Performed By: #### 1 1252667, 8548663, 0171355, 00906338, 69244880, 2664199, 6974793, 0632850 #### [facility] [address] [place] [address] Neutrophils (Bld) [#/Vol] 13.6 E9/L High 2.0-7.5 [facility] Comment on above: Performed By: #### 1 5870980, 2458104, 6346955, 35522287, 10413748, 3408166, 2435697, 6199070 #### [facility] [address] [place] [address] Neutrophils/100 WBC (Bld) 84.4 % High 36.0-75.0 [facility] Comment on above: Performed By: #### 1 9069750, 2039040, 4645453, 15836979, 10202095, 5748661, 6555492, 5304439 #### [facility] [address] [place] [address] Platelet 140.0 E9/L Low 150.0-500.0 [facility] Comment on above: Performed By: #### 1 0493723, 4697756, 8181527, 27522258, 85607675, 5877992, 9669982, 5012875 #### [facility] [address] [place] [address] Platelet mean volume (Bld) [Entitic vol] 8.3 fL Normal 6.4-10.8 [facility] Comment on above: Performed By: #### 1 0669871, 8543919, 5978572, 31088008, 52590695, 8271738, 7137935, 5430661 #### [facility] [address] [place] [address] RBC (Bld) [#/Vol] 4.6 E12/L Normal 4.3-5.9 [facility] Comment on above: Performed By: #### 1 3609288, 3222556, 2220120, 65018577, 82996806, 1026678, 0849741, 2369577 #### [facility] [address] [place] [address] WBC corrected for nucl RBC Auto (Bld) [#/Vol] 16.1 E9/L High 4.0-11.0 [facility] Comment on above: Result Comment: Slid e review performed Performed By: #### 1 0614163, 6107564, 5255896, 73978669, 00362506, 8069279, 9793727, 7340403 #### [facility] [address] [place] [address] CHEMISTRYOrdered By: SYSTEM SYSTEM on 01-26-2024 Anion gap [Moles/Vol] 12 mmol/L Normal 6 - 16 mEq/L Remisol Chem Calcium [Mass/Vol] 9.2 mg/dL Normal 8.9 - 11. 1 mg/dL Rem[facility] Chem Chloride [Moles/Vol] 104 mmol/L Normal 101 - 1 11 mmol/L [facility] Chem CO2 [Moles/Vol] 27 mmol/L Normal 21 - 31 mmol/L Rem[facility] Chem Creatinine [Mass/Vol] 0.9 mg/dL Normal 0.5 - 1.3 mg/dL Rem[facility] Chem eGFR 100 mL/min/1.73 m2 Normal >=59mL/mi n/ 1.73 m2 [facility] Chem Glucose [Mass/Vol] 100 mg/dL Normal 55 - 199 mg/dL [facility] Chem Magnesium [Mass/Vol] 1.8 mg/dL Normal 1.3 - 2 .4 mg/dL Rem[facility] Chem Potassium [Moles/Vol] 4.0 mmol/L Normal 3.5 - 5.3 mmol/L [facility] Chem Sodium [Moles/Vol] 139 mmol/L Normal 135 - 145 mmol/L [facility] Chem Urea nitrogen [Mass/Vol] 12 mg/dL Normal 5 - 21 mg/dL Rem[facility] Chem Urea nitrogen/Creatinine [Mass ratio] 13 mg/mg Normal 10 - 20 [facility] Chem ED Note-Physicianon 01-26-20 ED Note-Physician Basic Information Time Seen: Alexis HONG, Daniel Moraes 01/25/2024 14:40 Chief Complaint prostate biopsy with dr garcía in mid december. hospitalized with sepsis a few weeks ago. chills and fever. burning urination History of Present Illness 59-year-old male reports emerged department chief complaint of chills and fever as well as burning with urination. He reports that this started today. He reports that he does have a recent history of a prostate biopsy reports that after this he did get septic, and had to be admitted for it. She reports that he has been on Levaquin for almost 2 weeks. Reports last dose of medication was on Sunday. Reports that he is having symptoms again. Reports fever and bodyaches. reports dysuria as well. Reports allergy to penicillin, but was just told that he was allergic to this. No known reaction to penicillin. Review of Systems A 10 point review of systems is negative except as noted above. Medical and Surgical History: Reviewed and noted Social history: Lives at home Family History: Reviewed. Tobacco: denies Physical Exam Vitals & Measurements T: 37 ?C(Oral) HR: 83(Monitored) RR: 18 BP: 118/69 SpO2: 93% HT: 178 cm WT: 86.6 kg BMI: 27.33 General: The patient appears well and in no apparent distress. Patient is resting comfortably on bed.. Febrile Skin: Warm, dry, no pallor noted. Head: Normocephalic, atraumatic Neck: No JVD Eye: PERRLA, EOMI ENT: Moist mucus membranes Cardiovascular: Regular rate normal peripheral perfusion. Radial pulses +2 bilaterally Respiratory: No respiratory distress no accessory muscle use no obvious audible wheezing Chest Wall: no deformity Musculoskeletal: normal ROM, no deformity, no swelling GI: No obvious distention soft nontender nondistended no guarding rebounding or rigidity Neurological: A&O moves all extremities equal strength and symmetry Psychiatric: Cooperative and appropriate Medical Decision Making MEDICAL DECISION MAKING Number and Complexity of Problems Differential Diagnosis: [facility] Data External documents reviewed: [] My EKG interpretation: [Reviewed My CT interpretation: [] My X-ray interpretation: Reviewed My Ultrasound interpretation: [] Decision rules/scores evaluated: [] Discussed with: [] Treatment and Disposition ED Course: 59-year-old male reports emerged department chief complaint of bodyaches, fever chills and dysuria. Reports last time he had this happen, he was septic. Is concerned for this again. Reports that he has a history of chronic prostatitis. Reports has not take anything for symptoms. Reports recently did finish Levaquin. Physical exam with patient did reveal he was febrile, but nontachycardic. Denies being in any pain. Due to concerns, we did do a septic like workup on the patient. He was given 2 L of fluids, as well as Tylenol for fever. We did do lab work. Elevated white count. Urine was obvious for UTI. With this, he did meet sepsis protocol. Patient started on ceftriaxone for appropriate antibiotic coverage. He was given 2 L of fluid. Due to symptoms, did discuss case with hospitalist, was agreeable with admission. Shared decision making: [] Code status: [] Assessment/Plan Prostatitis (N41.9: Inflammatory disease of prostate, unspecified) Sepsis (A41.9: Sepsis, unspecified organism) UTI (urinary tract infection) (N39.0: Urinary tract infection, site not specified) Orders: acetaminophen + Generic Diluent 100 mL, 1,000 mg = 100 mL, Soln-IV, IV Piggyback, Once, Stop date 01/25/24 14:41:00 EST, STAT, Start date 01/25/24 14:41:00 EST, 400 mL/hr, Infuse over 15 minute(s) ceftriaxone + Sodium Chloride 0.9% intravenous solution 50 mL, 1,000 mg = 1 EA, IV Piggyback, Once, Stop date 01/25/24 16:04:00 EST, STAT, Start date 01/25/24 16:04:00 EST, 100 mL/hr, Infuse over 30 minute(s), 01/25/24 16:04:00 EST Sodium Chloride 0.9% intravenous solution, 1,000 mL, Soln-IV, IV, Once, Stop date 01/25/24 14:40:00 EST, STAT, Start date 01/25/24 14:40:00 EST, Infuse over 61, minute(s) Sodium Chloride 0.9% intravenous solution, 1,000 mL, Soln-IV, IV, Once, Stop date 01/25/24 15:33:00 EST, STAT, Start date 01/25/24 15:33:00 EST, Infuse over 61, minute(s) Comprehensive Metabolic Panel Continuous Pulse Oximetry CT Abdomen/Pelvis w/ Contrast ECG 12 Lead Adult ED Cardiac Monitoring ED Physician consult Hospitalist for continued care Extra SST Tube Extra SST Tube Lactic Acid PT & PTT Troponin XR Chest Single View Medications Administered Given Lactated Ringers IV Kena 1000 mL 1,000 mL, 1000 mL, IV [id number] [F] 1000 mg + GenDil 100 mL, IV Piggyback GenDil 250 mL + [id number] [F] 1250 mg, IV Piggyback NS 1000 ml Bolus, 1000 mL, IV NS 1000 ml Bolus, 1000 mL, IV Sodium Chloride 0.9% intravenous solution 50 mL + ceftriaxone additive 1000 mg, IV Piggyback Disposition Plan Patient Discharge Condition stable Discharge Disposition To be admitted Discharge Prescription List (more content not included)... Normal [facility] Comment on above: Result Comment: Elec tronically Signed By: Daniel Espinoza PA-C\.br\Date and Time Signed: 01/25/24 22:52 EST\.br\Electronically Co-Signed By: Scotty Martinez DO\.gerhard\Date and Time Co-Signed: 01/26/24 07:39 EST HEMATOLOGYOrdered By: SYSTEM SYSTEM on 01-26-2024 Basophils/100 WBC (Bld) 0.1 % Normal 0.0 - 2.0 % Remisol Heme Basophils/Leukocytes Auto (Bld) [Pure # fraction] 0.0 E9/L Normal 0.0 - 0.2 E9/L Remisol Heme Eosinophils (Bld) [#/Vol] 0.0 E9/L Normal 0.0 - 0.5 E9/L Remisol Heme Eosinophils/100 WBC (Bld) 0.3 % Normal 0.0 - 8.0 % Remisol Heme Erythrocyte distribution width (RBC) [Ratio] 12.9 % Normal 10.9 - 14.2 % Remisol Heme Hematocrit (Bld) [Volume fraction] 43.0 % Normal 37.7 - 49.0 % Remisol Heme Hemoglobin (Bld) [Mass/Vol] 14.3 g/dL Normal 13.5 - 17.5 gm/dL Remisol Heme Lymphocytes (Bld) [#/Vol] 1.3 E9/L Normal 1.0 - 4.0 E9/L Remisol Heme Lymphocytes/100 WBC (Bld) 8.0 % Low 14.0 - 50.0 % Remisol Heme MCH (RBC) [Entitic mass] 31.0 pg Normal 27. 0 - 34.0 pg Remisol Heme MCHC (RBC) [Mass/Vol] 33.3 g/dL Normal 31.4 - 36.0 gm/dL Remisol Heme MCV (RBC) [Entitic vol] 93.1 fL Normal 80.0 - 100.0 fL Remisol Heme Monocytes (Bld) [#/Vol] 1.2 E9/L High 0.2 - 1.0 E9/L Remisol Heme Monocytes/100 WBC (Bld) 7.2 % Normal 4.0 - 14.0 % Remisol Heme Neutrophils (Bld) [#/Vol] 13.6 E9/L High 2.0 - 7.5 E9/L Remisol Heme Neutrophils/100 WBC (Bld) 84.4 % High 36.0 - 75.0 % Remisol Heme Platelet 140.0 E9/L Low 150.0 - 500.0 E9/L Remisol Heme Platelet mean volume (Bld) [Entitic vol] 8.3 fL Normal 6.4 - 10.8 fL Remisol Heme RBC (Bld) [#/Vol] 4.6 E12/L Normal 4.3 - 5.9 E12/L Remisol Heme WBC corrected for nucl RBC Auto (Bld) [#/Vol] 16.1 E9/L High 4.0 - 11.0 E9/L Remisol Heme Comment on above: Result Comment: Jadon watters review performed Insurance Correspondence Off iceon 01-26-2024 Insurance Correspondence Office [id number]#1. 00TIFF Normal [facility] Magnesiumon 01-26-2024 Magnesium [Mass/Vol] 1.8 mg/dL Normal 1.3-2.4 [facility] Comment on above: Performed By: #### 1 [id number], [id number], 0768397, 19138525, 86058613, 1017363, 8648976, 0674883 #### [facility] Laboratory [address] [place] [address] Monitor Recordon 01-26-2024 Monitor Record [id number]#1. 00TIFF Normal [facility] Monitor Record [id number]#1. 00TIFF Normal [facility] Progress Note-Physicianon Progress Note-Physician Basic Informatio n 59 y/o M w/mhx of prostate biopsy who is admitted for sepsis Assessment/plan Prostatitis Sepsis Abnormal UA Bacteremia -Blood cultures: 1 bottle GNR -Urine cultures: GNR -PSA -CT abdomen pelvis negative for abscess -CTX and Vancomycin -Will likely need PICC line and 6 weeks of IV antibiotics after finalization of culutres -Consulted ID -Continue to monitor Chronic Medical Conditions -med rec Time: 35 mins Plan: As above DVT PPX: Lovenox Subjective The patient was seen and examined No acute complaints Review of Systems The patient denies any fevers, chills, changes in vision, nausea, vomiting, chest pain, palpitations, chest tightness, wheezing, abdominal pain, lower limb swelling, blood in the commode. Objective Vitals & Measurements T: 36.7 ?C(Oral) TMIN: 36.7 ?C(Oral) TMAX: 38.4 ?C(Oral) HR: 69(Monitored) RR: 18 BP: 112/72 SpO2: 96% HT: 175.26 cm WT: 81.6 kg Intake & Output This visit (24 hour periods starting at 07:00 EST) 01/26/24 * 01/25/24 01/24/24 Total Summary Intake mL -- 2,400 -- Output mL -- -- -- Fluid Balance -- 2,400 -- Intake (4) Generic Diluent, acetaminophen mL -- 100 -- Generic Diluent, vancomycin mL -- 250 -- Sodium Chloride 0.9% mL -- 2,000 -- Sodium Chloride 0.9%, ceftriaxone mL -- 50 -- Total -- 2,400 -- Output (0) Counts (0) * This column has not completed the indicated time period. Indicates a 23 hour day. Physical Exam General: alert, no acute distress Psychiatric: cooperative, affect appropriate for age Neurological: awake, alert, oriented, speech normal Cardiovascular: no overt murmurs Respiratory: no adventitious breath sounds Gastrointestinal: soft NT, NG, NR Extremities: no rash Lab Results WBC: 16.1 E9/L High (01/26/24 06:23:00) RBC: 4.6 E12/L (01/26/24 06:23:00) HGB: 14.3 gm/dL (01/26/24 06:23:00) Hct: 43 % (01/26/24 06:23:00) MCV: 93.1 fL (01/26/24 06:23:00) MCH: 31 pg (01/26/24 06:23:00) MCHC: 33.3 gm/dL (01/26/24 06:23:00) RDW: 12.9 % (01/26/24 06:23:00) Platelet: 140 E9/L Low (01/26/24 06:23:00) MPV: 8.3 fL (01/26/24 06:23:00) Neutro Auto: 84.4 % High (01/26/24 06:23:00) Lymph Auto: 8 % Low (01/26/24 06:23:00) Stevens Auto: 7.2 % (01/26/24 06:23:00) Eos Auto: 0.3 % (01/26/24 06:23:00) Basophil Auto: 0.1 % (01/26/24 06:23:00) Neutro Absolute: 13.6 E9/L High (01/26/24 06:23:00) Lymph Absolute: 1.3 E9/L (01/26/24 06:23:00) Stevens Absolute: 1.2 E9/L High (01/26/24 06:23:00) Eos Absolute: 0 E9/L (01/26/24 06:23:00) Basophil Absolute: 0 E9/L (01/26/24 06:23:00) PT: 11.3 second(s) (01/25/24 14:51:00) INR: 1.01 (01/25/24 14:51:00) PTT: 30.5 second(s) (01/25/24 14:51:00) Glucose Lvl: 100 mg/dL (01/26/24 06:23:00) BUN: 12 mg/dL (01/26/24 06:23:00) Creatinine: 0.9 mg/dL (01/26/24 06:23:00) eGFR: 100 mL/min/1.73 m2 (01/26/24 06:23:00) BUN/Creat Ratio: 13 (01/26/24 06:23:00) Sodium Lvl: 139 mmol/L (01/26/24 06:23:00) Potassium Lvl: 4 mmol/L (01/26/24 06:23:00) Chloride: 104 mmol/L (01/26/24 06:23:00) CO2: 27 mmol/L (01/26/24 06:23:00) AGAP: 12 mEq/L (01/26/24 06:23:00) Calcium Lvl: 9.2 mg/dL (01/26/24 06:23:00) Alk Phos: 55 Int._Unit/L (01/25/24 14:51:00) ALT: 21 Int._Unit/L (01/25/24 14:51:00) AST: 18 Int._Unit/L (01/25/24 14:51:00) Total Protein: 7 gm/dL (01/25/24 14:51:00) Albumin Lvl: 4.6 gm/dL (01/25/24 14:51:00) Globulin: 2.4 gm/dL (01/25/24 14:51:00) A/G Ratio: 1.9 (01/25/24 14:51:00) Bili Total: 0.9 mg/dL (01/25/24 14:51:00) Lactic Acid Lvl: 1.5 mmol/L (01/25/24 19:02:00) Magnesium: 1.8 mg/dL (01/26/24 06:23:00) Troponin: 5 pg/mL Low (01/25/24 14:51:00) PSA: 15.3 ng/mL High (01/25/24 14:51:00) PSA Free&Total: 25.5 % (01/25/24 14:51:00) PSA Free: 3.9 ng/mL (01/25/24 14:51:00) UA Spec Desc: Clean Catch (01/25/24 14:05:00) UA Color: STRAW (01/25/24 14:05:00) UA Clarity: Cloudy2 Abnormal (01/25/24 14:05:00) UA Spec Grav: <=1.005 (01/25/24 14:05:00) UA pH: 6.0 (01/25/24 14:05:00) UA Protein: 1+ Abnormal (01/25/24 14:05:00) UA Glucose: NEGATIVE1 (01/25/24 14:05:00) UA Ketones: NEGATIVE1 (01/25/24 14:05:00) UA Bili: NEGATIVE1 (01/25/24 14:05:00) UA Blood: 3+ Abnormal (01/25/24 14:05:00) UA Nitrite: NEGATIVE1 (01/25/24 14:05:00) UA Urobilinogen: 0.2 (01/25/24 14:05:00) UA Leuk Est: 3+ Abnormal (01/25/24 14:05:00) UA RBC: 21-30 Abnormal (01/25/24 14:05:00) UA Squam Epithelial: 0-2 (01/25/24 14:05:00) UA WBC: >75 Abnormal (01/25/24 14:05:00) UA Bacteria: 1+ Abnormal (01/25/24 14:05:00) Problem List/Past Medical History Ongoing BPH with urinary obstruction Chronic prostatitis Elevated PSA Glaucoma Heart murmur Hyperlipemia OAB (overactive bladder) PIN (prostatic intraepithelial neoplasia) Screen for colon cancer Historical Plantar fasciitis Medications Inpatient acetaminophen 325 mg Tab, 650 mg= 2 tab(s), Oral, q6hr, PRN atorvastatin 40 mg (more content not included)... Normal [facility] Comment on above: Result Comment: Elec tronically Signed By: Christie LEVIN, Louisa\.br\Date and Time Signed: 01/26/24 11:09 EST eGFRon 01-26-2024 eGFR 100 mL/min/1.73 m2 Normal >=59 [facility] Comment on above: Order Comment: Order added by Discern Expert. Performed By: #### 1 [id number], 9251660, 6565089, 13497854, 68387032, 0509257, 1068319, 9140427 #### [facility] Laboratory [address] [place] [address] AMPICILLIN:SUSC:PT:ISOLATE:O RDQN:MICOrdered By: Maryjo Ventura on 01-25-2024 Ampicillin EUGENE [Susc] Escherichia coli In 1 of 2 blood culture bottles drawn. Isolated from aerobic bottle Preliminary gram stain result of gram negative rods given to Dr. Soriano 01/26/2024 10:57:52 by [facility] AMPICILLIN:SUSC:PT:ISOLATE:O RDQN:MICOrdered By: Tammy Krishna on 01-25-2024 Ampicillin EUGENE [Susc] >100,000 cfu/ml Escherichia coli [facility] Ampicillin EUGENE [Susc]Ordered By: Maryjo Ventura on 01-25-2024 Escherichia coli Escherichia coli [facility] Ampicillin EUGENE [Susc]Ordered By: Tammy Krishna on 01-25-2024 Escherichia coli Escherichia coli [facility] BMPon 01-25-2024 Anion gap [Moles/Vol] 13 mmol/L Normal 6-16 [facility] Comment on above: Performed By: #### 1 [id number], 2785512, 6795009, 91289206, 99242624, 1307656, 1874115, 8672540 #### [facility] [address] [place] [address] Calcium [Mass/Vol] 9.8 mg/dL Normal 8.9-11.1 [facility] Comment on above: Performed By: #### 1 4877411, 3777270, 5036440, 21643264, 54699921, 7696439, 0614543, 7875826 #### [facility] [address] [place] [address] Chloride [Moles/Vol] 100 mmol/L Low 101-111 [facility] Comment on above: Performed By: #### 1 0658467, 9913567, 7143288, 95515666, 68353334, 6918040, 3637900, 1210824 #### [facility] [address] [place] [address] CO2 [Moles/Vol] 28 mmol/L Normal 21-31 [facility] Comment on above: Performed By: #### 1 1106402, 2934283, 2362046, 37124874, 98619210, 8055617, 4157282, 4447118 #### [facility] [address] [place] [address] Creatinine [Mass/Vol] 0.9 mg/dL Normal 0.5-1.3 [facility] Comment on above: Performed By: #### 1 5526926, 2491364, 9012186, 08950976, 19823132, 5434146, 1085690, 3028064 #### [facility] [address] [place] [address] Glucose [Mass/Vol] 95 mg/dL Normal 55-199 [facility] Comment on above: Performed By: #### 1 2267654, 1228596, 7014220, 06699591, 75384225, 4806892, 9108707, 0405905 #### [facility] [address] [place] [address] Potassium [Moles/Vol] 3.9 mmol/L Normal 3.5-5.3 [facility] Comment on above: Performed By: #### 1 0501031, 5721160, 4329071, 84280076, 81045457, 5237010, 5346288, 6038349 #### [facility] [address] [place] [address] Sodium [Moles/Vol] 137 mmol/L Normal 135-145 [facility] Comment on above: Performed By: #### 1 7845303, 6079982, 3952112, 22845664, 13798801, 6284151, 3765420, 9497232 #### [facility] [address] [place], [place] [address] Urea nitrogen [Mass/Vol] 17 mg/dL Normal 5-21 [facility] Comment on above: Performed By: #### 1 5334414, 4072584, 7274029, 33623656, 84037796, 8779922, 0093918, 9996114 #### [facility] [address] [place], [place] [address] Urea nitrogen/Creatinine [Mass ratio] 19 No Units Normal 10-20 [facility] Comment on above: Performed By: #### 1 2743010, 6360496, 1167043, 03468367, 11294911, 9004014, 2711830, 5835828 #### [facility] [address] [place] [address] CBC w/ Auto Diffon 4 Basophils/100 WBC (Bld) 0.1 % Normal 0.0-2.0 [facility] Comment on above: Performed By: #### 1 0363539, 8725748, 0853996, 28542948, 81678673, 7834619, 9972042, 7231136 #### [facility] [address] [place] [address] Basophils/Leukocytes Auto (Bld) [Pure # fraction] 0.0 E9/L Normal 0.0-0.2 [facility] Comment on above: Performed By: #### 1 5585809, 3010442, 8730337, 40992914, 72876232, 5194083, 1456669, 6803544 #### [facility] [address] [place] [address] Eosinophils (Bld) [#/Vol] 0.0 E9/L Normal 0.0-0.5 [facility] Comment on above: Performed By: #### 1 9207688, 7712432, 7824261, 09444253, 58719782, 9180331, 4461533, 0041702 #### [facility] [address] [place] [address] Eosinophils/100 WBC (Bld) 0.2 % Normal 0.0-8.0 [facility] Comment on above: Performed By: #### 1 5766662, 6723600, 5408215, 49526249, 74877663, 0578857, 8675969, 5959682 #### [facility] [address] [place] [address] Lymphocytes (Bld) [#/Vol] 0.8 E9/L Low 1.0-4.0 [facility] Comment on above: Performed By: #### 1 1863639, 0273871, 6232662, 78055266, 69918365, 2533769, 3973095, 8048035 #### [facility] [address] [place] [address] Lymphocytes/100 WBC (Bld) 5.0 % Low 14.0-50.0 [facility] Comment on above: Performed By: #### 1 5090710, 8356103, 6775152, 76394914, 65223104, 7442505, 1033918, 0092529 #### [facility] [address] [place] [address] Monocytes (Bld) [#/Vol] 1.1 E9/L High 0.2-1.0 [facility] Comment on above: Performed By: #### 1 7531554, 4582004, 9309355, 26541886, 96406650, 4164485, 8311544, 7155124 #### [facility] [address] [place] [address] Neutrophils (Bld) [#/Vol] 13.8 E9/L High 2.0-7.5 [facility] Comment on above: Performed By: #### 1 4053253, 5843193, 6414318, 80027462, 70512151, 4013153, 8993385, 7178878 #### [facility] [address] [place] [address] Neutrophils/100 WBC (Bld) 87.9 % High 36.0-75.0 [facility] Comment on above: Performed By: #### 1 8775295, 7042240, 5146139, 89698488, 41242305, 5358371, 7524615, 5080241 #### [facility] [address] [place] [address] Erythrocyte distribution width (RBC) [Ratio] 12.8 % Normal 10.9-14.2 [facility] Comment on above: Performed By: #### 1 5541242, 9460122, 6210121, 57745314, 88680957, 6286012, 7618481, 6395880 #### [facility] [address] [place] [address] Hematocrit (Bld) [Volume fraction] 42.9 % Normal 37.7-49.0 [facility] Comment on above: Performed By: #### 1 1011527, 7822977, 1787995, 51081859, 85632828, 8131127, 6499177, 8384836 #### [facility] [address] [place] [address] Hemoglobin (Bld) [Mass/Vol] 14.6 g/dL Normal 13.5-17.5 [facility] Comment on above: Performed By: #### 1 8189692, 1636655, 7796015, 50109117, 00741088, 4614265, 0222195, 9982930 #### [facility] [address] [place] [address] MCH (RBC) [Entitic mass] 31.6 pg Normal 27.0-34.0 [facility] Comment on above: Performed By: #### 1 4669882, 4083985, 9402827, 36560263, 12554446, 7500981, 8436423, 4842782 #### [facility] [address] [place] [address] MCHC (RBC) [Mass/Vol] 34.0 g/dL Normal 31.4-36.0 [facility] Comment on above: Performed By: #### 1 0216172, 7757813, 4897114, 62305328, 67054874, 7909948, 2194515, 0515309 #### [facility] [address] [place] [address] MCV (RBC) [Entitic vol] 92.8 fL Normal 80.0-100.0 [facility] Comment on above: Performed By: #### 1 9438058, 0235994, 5032912, 18777762, 17540598, 1429053, 2255697, 7674617 #### [facility] [address] [place] [address] Platelet mean volume (Bld) [Entitic vol] 8.6 fL Normal 6.4-10.8 [facility] Comment on above: Performed By: #### 1 9393843, 0192879, 0825525, 15408793, 88030492, 7632707, 5229571, 4412052 #### [facility] [address] [place] [address] Platelets (Bld) [#/Vol] 143.0 E9/L Low 150.0-500.0 [facility] Comment on above: Performed By: #### 1 2300414, 9890664, 8306268, 04230043, 80798254, 4348353, 3035229, 0890959 #### [facility] [address] [place] [address] RBC (Bld) [#/Vol] 4.6 E12/L Normal 4.3-5.9 [facility] Comment on above: Performed By: #### 1 3532471, 2689926, 1511787, 06543344, 97466068, 8008809, 3479528, 1083093 #### [facility] [address] [place] [address] WBC corrected for nucl RBC Auto (Bld) [#/Vol] 15.7 E9/L High 4.0-11.0 [facility] Comment on above: Performed By: #### 1 0215062, 0119960, 8210023, 71342625, 68123675, 3437739, 2383540, 2259747 #### [facility] [address] [place] [address] CHEMISTRYOrdered By: SYSTEM SYSTEM on 01-25-2024 Lactic Acid Lvl 1.5 mmol/L Normal 0.5 - 2.2 mmol/L Remisol Chem Albumin [Mass/Vol] 4.6 g/dL Normal 3.3 - 5.0 gm/dL Rem[facility] Chem Albumin/Globulin [Mass ratio] 1.9 {ratio} Normal 1.1 - 2.2 [facility] ALP [Catalytic activity/Vol] 55 [iU]/d Normal 21 - 98 Int._Unit/L Remisol Chem ALT No additional P-5'-P [Catalytic activity/Vol] 21 [iU]/d Normal 6 - 46 Int._Unit/L [facility] Chem AST [Catalytic activity/Vol] 18 [iU]/d Normal 5 - 43 Int._Unit/L [facility] Bilirubin [Mass/Vol] 0.9 mg/dL Normal 0.0 - 1 .1 mg/dL [facility] eGFR 100 mL/min/1.73 m2 Normal >=59mL/mi n/ 1.73 m2 [facility] Chem Free PSA [Mass/Vol] 3.9 ng/mL Invalid Interpretation Code [facility] Comment on above: Interpretive Data: T he concentration of free PSA and total PSA determined with assays from different manufacturers can vary due to differences in assay methods and specificity. Values obtained with different staff software engineer's assays cannot be used interchangeably. The methodology used to obtain this result was chemiluminescence using [employer]'s Access Hybritech PSA reagent and Access Hybritech free PSA reagent. Free PSA/Total PSA [Mass fraction] 25.5 % Normal >=25.0% [facility] Globulin (S) [Mass/Vol] 2.4 g/dL Normal 1.4 - 4.0 gm/dL [facility] Lactic Acid Lvl 1.8 mmol/L Normal 0.5 - 2.2 mmol/L [facility] Prostate specific Ag [Mass/Vol] 15.3 ng/mL High 0.1 - 3.5 ng/mL [facility] Comment on above: Interpretive Data: T he concentration of PSA determined by different manufacturers can vary due to differences in assay methods and reagent specificity. Values obtained from different assay methods cannot be used interchangeably. The methodology used for this result was chemiluminescence using [employer]'s Access Hybritech PSA reagent. Protein [Mass/Vol] 7.0 g/dL Normal 6.0 - 7.8 gm/dL [facility] Troponin 5.00 pg/mL Low 15.90 - 38.40 pg/mL [facility] Comment on above: Interpretive Data: T he 95% CI (Confidence Interval) PPV (Positive Predictive Value) for myocardial infarction in females is 38 pg/mL, in males 51 pg/mL. The results should be used in conjunction with clinical conditions of myocardial infarction. (Access High Sensitivity Troponin I Instructions For Use, Pathagility, June 2018) CMPon 01-25-2024 Albumin [Mass/Vol] 4.6 g/dL Normal 3.3-5.0 [facility] Comment on above: Performed By: #### 1 7466502, 3758259, 3188492, 06231689, 64239135, 1422581, 1947862, 3078801 #### [facility] [address] [place] [address] Albumin/Globulin (S) [Mass conc ratio] 1.9 Normal 1.1-2.2 [facility] Comment on above: Performed By: #### 1 7772238, 3726889, 1739785, 13343949, 28884853, 3971458, 0239589, 9947007 #### [facility] [address] [place] [address] ALP [Catalytic activity/Vol] 55 Int._Unit/L Normal 21-98 [facility] Comment on above: Performed By: #### 1 8779673, 7904329, 9206245, 68551505, 45014468, 3725523, 2761387, 7329980 #### [facility] [address] [place] [address] ALT No additional P-5'-P [Catalytic activity/Vol] 21 Int._Unit/L Normal 6-46 [facility] Comment on above: Performed By: #### 1 2693419, 5435004, 4625845, 00274545, 70639947, 6610181, 7222227, 2259051 #### [facility] [address] [address] AST [Catalytic activity/Vol] 18 Int._Unit/L Normal 5-43 [facility] Comment on above: Performed By: #### 1 [id number] [id number], [id number], [id number], [id number], 8546755, [id number], [id number] #### [facility] [address] [place] [address] Bilirubin [Mass/Vol] 0.9 mg/dL Normal 0.0-1.1 [facility] Comment on above: Performed By: #### 1 [id number], [id number], 5568901, [id number], 48619541, 5637164, 7539643, [id number] #### [facility] [address] [place] [address] Globulin (S) [Mass/Vol] 2.4 g/dL Normal 1.4-4.0 [facility] Comment on above: Performed By: #### 1 [id number], 4874299, 8853097, 97838282, 74404130, 7939633, 9223925, 5378986 #### [facility] [address] [place] [address] Protein [Mass/Vol] 7.0 g/dL Normal 6.0-7.8 [facility] Comment on above: Performed By: #### 1 [id number], 9541901, 9756645, 79303194, 52906162, 0311217, 8906989, 8097060 #### [facility] [address] [place] [address] COAGULATIONOrdered By: Leticia King on 01-25-2024 aPTT Coag (PPP) [Time] 30.5 s Normal 25.1 - 36.5 second(s) [facility] Comment on above: Interpretive Data: P arameter 15 days - 4 weeks 1 - 5 months 6 - 11 months 1 - 5 years 6 - 10 years 11 - 17 years PTT Mean: 35.4 (27.6-45.6) Mean: 33.5 (24.8-40.7) Mean: 32.4 (25.1-40.7) Mean: 31.6 (24.0-39.2) Mean: 31.6 (26.9-38.7) Mean: 31.0 (24.6-38.4) Pediatric Reference ranges were obtained from a study by Oc Berry et al. prepared from 1437 samples obtained at 7 different centers using the same coagulation reagent and instrumentation as [facility]. Currently there are no coagulation studies available worldwide for children to 14 days, and no normal ranges. Heparin therapeutic range (represented by Anti-Factor Xa activity of 0.2 - 0.4 U/mL) corresponds to PTT of 56.6 - 109.0 sec. INR Coag (PPP) [Relative time] 1.01 {INR} Invalid Interpretation Code [facility] Comment on above: Interpretive Data: I NR results are specifically intended to assess patients stabilized on long-term Anticoagulation therapy suggested INR s Less Intensive Anticoagulation 2.0 3.0 Conventional Range 3.0 4.5 PT Coag (PPP) [Time] 11.3 s Normal 9.4 - 1 2.5 second(s) [facility] Comment on above: Interpretive Data: 1 5 days - 4 weeks 1 - 5 months 6 -11 months 1 5 years 6 10 years 11 -17 years Mean: 11.2 (9.5 12.6) Mean: 11.0 (9.7 12.8) Mean: 11.0 (9.8 13.0) Mean: 11.3 (9.9 13.4) Mean: 11.7 (10.0 14.6) Mean: 11.8 (10.0 - 14.1) Pediatric Reference ranges were obtained from a study by Oc Berry et al. prepared from 1437 samples obtained at 7 different centers using the same coagulation reagent and instrumentation as [facility]. Currently there are no coagulation studies available worldwide for children to 14 days, and no normal ranges. CT Abdomen/Pelvis w/ Contras ton 01-25-2024 CT Abdomen/Pelvis w/ Contrast Exam Date/Time: 01/25/2024 16:22 EST Reason for Exam: Abdominal pain, acute, nonlocalized;Other (please specify) Report IMPRESSION: There are no acute intra-abdominal changes. Urinary bladder is unremarkable. There is hypertrophy of the prostate gland. EXAMINATION: CT Abdomen/Pelvis w/ Contrast HISTORY: Abdominal pain, acute, nonlocalized TECHNIQUE: Contiguous axial CT sections of the abdomen and pelvis were obtained after IV contrast administration of 100 mL of Iopamidol, Isovue-300. Sagittal and coronal reformats have been obtained. All CT scans at this facility use dose modulation, iterative reconstruction, and/or weight based dosing when appropriate to reduce radiation dose to as low as reasonably achievable. COMPARISON: None FINDINGS Lung bases:Visualized lung bases show no significant pathology Liver: The liver is normal in size and enhancement. There are no focal solid or cystic lesions. There is no intra or extrahepatic bile duct dilatation. Gallbladder: No calcified gallstones. Normal gallbladder wall. No pericholecystic fluid. Spleen: There are no focal lesions or calcifications in the spleen. There is no splenomegaly Pancreas: The pancreas is normal in size and attenuation without focal lesions or dilatation of the pancreatic duct. Adrenal glands are negative. Kidneys: There are no solid renal lesions. There are prompt bilateral nephrograms after IV contrast administration with prompt excretion into nondilated collecting systems. There is no hydroureter. Bowel: There are no distended loops of bowel. The appendix is unremarkable. There are diverticula of the descending sigmoid colon without surrounding inflammation. Nodes: No lymphadenopathy. Aorta: There is no abdominal aortic aneurysm. Report Peritoneum: No free fluid or free air. Pelvis: There are no solid or cystic lesions. The urinary bladder is within normal limits there are no radiopaque stones. There are project gland measures 6.1 x 5.2 x 6.6 cm for an estimated volume of 109.6 mL. Abdominal wall: The abdominal wall is intact. Bones :There are no acute osseous changes. Soft tissues: The soft tissues are unremarkable. Ordering Provider: Daniel Espinoza FINAL REPORT Dictated: 01/25/2024 4:40 pm Sukhjinder Lindsay MD, V. Signed (Electronic Signature): 01/25/2024 4:40 pm Signed by: Sukhjinder Lindsay MD, V. Transcribed by: JASON Technologist: KHOI Technical Comments GFR (mL/min/1/73m2) 100 Contrast: Isovue 370 Contrast amount in ml's: 100 Normal [facility] Consent for Treatmenton Consent for Treatment [id number] 0TIFF Normal [facility] Consent for Treatment [id number] [id number] 0TIFF Normal [facility] ED Clinical Summaryon 2023 ED Clinical Summary [place] [id number] ED Clinical Summary Person Information Name: STEVE WILLIAMSON Shayna/[facility] Age: 59 Years : 1965 Sex: Male Language: Sri Lankan PCP: DELPHINE BERRY NP Marital Status: Visit Id: Visit Reason: [id number] -BURNING W/URINATION Speciality: Acuity: 3 Enc Type: Inpatient Med Service: Emergency Arrival: 01/25/2024 13:32:51 Discharge: LOS: 000 08:29 Checkin: 01/25/2024 13:32:51 Checkout: 01/25/2024 22:01:01 Dispo Type: Admitted as IP to this [facility] EVENTS: Event Name Event Status Request Date/Time Start Date/Time Complete Date/Time Arrive Complete 01/25/2024 13:32:51 01/25/2024 13:32:51 01/25/2024 13:32:51 Document Home Meds Request 01/25/2024 13:32:51 Triage Complete 01/25/2024 13:32:51 01/25/2024 14:00:19 01/25/2024 14:00:19 Registration Complete 01/25/2024 13:39:22 01/25/2024 13:39:22 01/25/2024 13:39:22 Reg Complete Request 01/25/2024 13:39:22 Reg Bed Request Complete 01/25/2024 13:39:22 01/25/2024 13:39:22 01/25/2024 13:39:22 30 Day Return Request 01/25/2024 14:00:20 Pending Labs Complete 01/25/2024 14:00:49 01/25/2024 14:22:36 Lab Complete 01/25/2024 14:00:49 01/25/2024 14:22:36 Urine Collect Complete 01/25/2024 14:00:49 01/25/2024 14:22:36 Pending Labs Inlab 01/25/2024 14:06:37 Lab Inlab 01/25/2024 14:06:37 Pending Labs Inlab 01/25/2024 14:09:34 01/25/2024 14:09:34 Lab Inlab 01/25/2024 14:09:35 01/25/2024 14:09:35 Bed Assign Complete 01/25/2024 14:31:29 01/25/2024 14:31:29 01/25/2024 14:31:29 Dr Exam Complete 01/25/2024 14:31:29 01/25/2024 14:40:08 01/25/2024 14:40:08 RN Exam Complete 01/25/2024 14:31:29 01/25/2024 14:55:02 01/25/2024 14:55:02 Registration Complete 01/25/2024 14:40:08 01/25/2024 18:47:10 01/25/2024 18:47:10 EKG Complete 01/25/2024 14:41:26 01/25/2024 15:22:12 Meds Admin Complete 01/25/2024 14:41:26 01/25/2024 14:51:46 Pending Labs Complete 01/25/2024 14:41:26 01/25/2024 19:24:09 Lab Complete 01/25/2024 14:41:26 01/25/2024 19:24:09 X-Ray Complete 01/25/2024 14:41:26 01/25/2024 14:44:31 01/25/2024 14:59:18 RT Request 01/25/2024 14:41:26 Meds Admin Complete 01/25/2024 14:42:10 01/25/2024 14:51:47 Dr Exam Complete 01/25/2024 14:43:19 01/25/2024 14:43:19 01/25/2024 14:43:19 Wet Read Complete 01/25/2024 14:59:18 01/25/2024 15:00:09 01/25/2024 15:00:09 CT Complete 01/25/2024 15:03:21 01/25/2024 16:07:12 01/25/2024 16:22:15 Pending Labs Complete 01/25/2024 15:11:28 01/25/2024 15:11:28 01/25/2024 15:36:18 Lab Complete 01/25/2024 15:11:28 01/25/2024 15:11:28 01/25/2024 15:36:18 Pending Labs Complete 01/25/2024 15:13:09 01/25/2024 15:13:09 01/25/2024 15:13:10 Pending Labs Complete 01/25/2024 15:18:52 01/25/2024 15:18:52 01/25/2024 15:55:52 Lab Complete 01/25/2024 15:18:52 01/25/2024 15:18:52 01/25/2024 15:55:52 Meds Admin Complete 01/25/2024 15:33:42 01/25/2024 15:40:36 Meds Admin Complete 01/25/2024 16:06:17 01/25/2024 16:29:23 Consult Request 01/25/2024 17:28:15 Hospitalist Consult Request 01/25/2024 17:28:15 Patient Care Request 01/25/2024 18:43:34 Bed Request Request 01/25/2024 18:43:34 Reg Bed Request Complete 01/25/2024 18:43:34 01/25/2024 18:47:10 01/25/2024 18:47:10 Admit Request 01/25/2024 18:43:34 Meds Admin Request 01/25/2024 18:44:52 Patient Care Request 01/25/2024 18:47:09 Patient Care Request 01/25/2024 18:47:10 Patient Care Request 01/25/2024 18:47:10 Patient Care Request 01/25/2024 18:47:10 Patient Care Request 01/25/2024 18:47:10 Patient Care Request 01/25/2024 18:47:11 Pending Labs Cancel 01/25/2024 18:53:56 01/25/2024 18:54:28 Meds Admin Request 01/25/2024 18:53:56 Pending Labs Cancel 01/25/2024 18:54:28 01/25/2024 18:59:08 Pending Labs Request 01/25/2024 18:55:05 Lab Request 01/25/2024 18:55:05 Pending Labs Complete 01/25/2024 19:00:02 01/25/2024 19:00:02 01/25/2024 19:26:46 Patient Care Request 01/25/2024 19:01:51 Meds Admin Request 01/25/2024 19:12:58 Pending Labs Request 01/25/2024 19:16:51 Lab Request 01/25/2024 19:16:51 Pending Labs Request 01/25/2024 20:18:13 Pending Labs Complete 01/25/2024 20:18:48 01/25/2024 20:18:48 01/25/2024 20:18:48 ADDRESS: [address] [place] [id number] PHYS DOC NOTES: MEDICAL INFORMATION: Prescriptions Given: Medications to Continue with No Changes Other Medications alfuzosin (alfuzosin 10 mg ER Tab) 1 Tablets By Mouth every day. Refills: 11. latanoprost ophthalmic (latanoprost Opth 0.005% Kena) 1 Drops Ophthalmic once a day (at bedtime). mirabegron (Myrbetriq 50 mg oral tablet, extended release) 1 Tablets By Mouth every day. Refills: 11. oxybutynin (oxybutynin 5 mg ER Tab) 1 Tablets By Mouth every day. Refills: 11. rosuvastatin (rosuvastatin 20 mg Tab) 1 Tablets By Mouth every day. tadalafil (Cialis 20 mg Tab) 1 Tablets By Mouth As Directed. PRN for sexual activity. Do not exceed 20mg within 48 hours.. Refills: 4. PATIENT EDUCATION INFORMATION: Instructions: Follow up: DIAGNOSIS: Prostatitis; Sepsis; UTI (urinary tract infection) Normal [facility] ED Patient Education Noteon 01-25-2024 ED Patient Education Note Normal [facility] ED Patient Summaryon ED Patient Summary [place] [id number] Patient Discharge Instructions Person Information Name: STEVE WILLIAMSON Age: 59 Years Arrival Date: 01/25/2024 13:32:51 Discharge Diagnosis: Prostatitis; Sepsis; UTI (urinary tract infection) Primary Care Physician: DELPHINE BERRY NP Provider Information Primary Provider: Scotty Martinez DO Advanced Pipelayer:None The exam and treatment you received in the Emergency Department were for an urgent problem and are not intended as complete care. It is important that you follow up with a doctor, nurse practitioner, or physician?s elder assistant for ongoing care. If your symptoms become worse or you do not improve as expected and you are unable to reach your usual health care provider, you should return to the Emergency Department. We are available 24 hours a day. STEVE WILLIAMSON has been given the following list of patient education materials, prescriptions and follow-up instructions: Follow-up Instructions: In the event that this physician does not participate in your insurance network, please consult with your insurance company to find a nearby participating provider. Patient Education Materials: A MESSAGE TO ALL PATIENTS REGARDING OPIOIDS PRESCRIPTION OPIOIDS: WHAT YOU NEED TO KNOW Prescription opioids can be used to help relieve imxjawvt-ll-qkouzw pain and are often prescribed following a surgery or injury, or for certain health conditions. These medications can be an important part of the treatment but also come with serious risks. It is important to work with your healthcare provider to make sure you are getting the safest, most effective care. WHAT ARE THE RISKS AND SIDE EFFECTS OF OPIOID USE? Prescription opioids carry serious risks of addiction and overdose, especially with prolonged use. An opioid overdose, often marked by slowed breathing, can cause sudden . The use of prescription opioids can have a number of side effects as well, even when taken as directed: ? Tolerance?meaning you might need to take more of the medication for the same pain relief ? Physical dependence?meaning you have symptoms of withdrawal when a medication is stopped ? Increased sensitivity to pain ? Constipation ? Nausea, vomiting, and dry mouth ? Sleepiness and dizziness ? Confusion ? Depression ? Low levels of testosterone that can result in lower sex drive, energy, and strength ? Itching and sweating RISKS ARE GREATER WITH: ? History of drug misuse, substance use disorder, or overdose ? Mental health conditions (such as depression or anxiety) ? Sleep apnea ? Older age (65 years and older) ? Avoid alcohol while taking prescription opioids. Also, unless specifically advised by your health care provider, medications to avoid include: ? Benzodiazepines (such as Xanax or Valium) ? Muscle relaxants (such as Soma or Flexeril) ? Hypnotics (such as Ambien or Lunesta) ? Other prescription opioids KNOW YOUR OPTIONS Talk to your health care provider about ways to manage your pain that don?t involve prescription opioids. Some of these options may actually work better and have fewer risks and side effects. Options may include: ? Pain relievers such as acetaminophen, ibuprofen, and naproxen ? Some medication that are also used for depression or seizures ? Physical therapy and exercise ? Cognitive behavioral therapy, a psychological, goal-directed approach, in which patients learn how to modify physical, behavioral, and emotional triggers of pain and stress. IF YOU ARE PRESCRIBED OPIOIDS FOR PAIN: ? Never take opioids in greater amounts or more often than prescribed. ? Follow up with your primary health care provider. o Work together to create a plan on how to manage your pain. o Talk about ways to help manage your pain that don?t involve prescription opioids. o Talk about any and all concerns and side effects. ? Help prevent misuse and abuse o Never sell or share prescription opioids. o Never use another person?s prescription opioids. ? Store prescription opioids in a secure place and out of reach of others (this may include visitors, children, friends, and family). ? Safely dispose of unused prescription opioids: Find your community drug take-back program or your pharmacy mail-back program, or flush them down the toilet, following guidance from the Food and Drug Administration (www.fda.gov/Drugs/Res ourcesForYou). ? Visit www.cdc.gov/drugoverdo se to learn about the risks of opioids abuse and overdose. ? If you believe you may be struggling with addiction, tell your health rn transitional care and ask for guidance or call [facility]S [employer] Helpline at 2-483-442-ECIJ. t Source: [place] Department of Health and Human Services/Center for Disease Control & Prevention [facility] Medications Given: Medi (more content not included)... Normal [facility] - Chemistry and C hemistry - challengeOrdered By: SYSTEM SYSTEM on 01-25-2024 Anion gap [Moles/Vol] 13 mmol/L Normal 6 - 16 mEq/L Remisol Chem Calcium [Mass/Vol] 9.8 mg/dL Normal 8.9 - 11. 1 mg/dL Remisol Chem Chloride [Moles/Vol] 100 mmol/L Low 101 - 1 11 mmol/L Remisol Chem CO2 [Moles/Vol] 28 mmol/L Normal 21 - 31 mmol/L Remisol Chem Creatinine [Mass/Vol] 0.9 mg/dL Normal 0.5 - 1.3 mg/dL Remisol Chem Glucose [Mass/Vol] 95 mg/dL Normal 55 - 199 mg/dL Remisol Chem Potassium [Moles/Vol] 3.9 mmol/L Normal 3.5 - 5.3 mmol/L Remisol Chem Sodium [Moles/Vol] 137 mmol/L Normal 135 - 145 mmol/L Remisol Chem Urea nitrogen [Mass/Vol] 17 mg/dL Normal 5 - 21 mg/dL Remisol Chem Urea nitrogen/Creatinine [Mass ratio] 19 mg/mg Normal 10 - 20 Remisol Chem Lactic Acidon 01-25-2024 Lactic Acid Lvl 1.5 mmol/L Normal 0.5-2.2 [facility] Comment on above: Performed By: #### 2 [id number] ####[facility] [address] [place] [address] Lactic Acid Lvl 1.8 mmol/L Normal 0.5-2.2 [facility] Comment on above: Performed By: #### 1 [id number], [id number], 6120122, 87905603, [id number], 0726682, 5371224, 1733979 #### [facility] [address] [place] [address] No Panel InformationOrdered By: [facility] on 01-25-2024 Blood Culture Charcoal No growth at 4 da ys. Final to follow at 7 days. [facility] PSA Free & Totalon Free PSA/Total PSA [Mass fraction] 25.5 % Normal >=25.0 [facility] Comment on above: Performed By: #### 1 [id number], 7198842, 3336492, 97807130, 31769492, 6551091, 7596050, 6456662 ####[facility] [address] [place] [address] Prostate specific Ag [Mass/Vol] 15.3 ng/mL High 0.1-3.5 [facility] Comment on above: Result Comment: The concentration of PSA determined by different manufacturers can vary due to differences in assay methods and reagent specificity. Values obtained from different assay methods cannot be used interchangeably. The methodology used for this result was chemiluminescence using [employer]'s Access Hybritech PSA reagent. Performed By: #### 1 [id number], 2481023, 6637583, 15835018, 27135863, 5398296, 3508331, 7978839 ####[facility] [address] [place] [address] Free PSA [Mass/Vol] 3.9 ng/mL Invalid Interpretation Code [facility] Comment on above: Result Comment: The concentration of free PSA and total PSA determined with assays from different manufacturers can vary due to differences in assay methods and specificity. Values obtained with different staff software engineer's assays cannot be used interchangeably. The methodology used to obtain this result was chemiluminescence using [employer]'s Access Hybritech PSA reagent and Access Hy[employer]ch free PSA reagent. Performed By: #### 1 [id number], 0851574, 0791151, 93812058, 90219046, 2053124, 0554037, 1412634 ####[facility] [address] [place] [address] PT & PTTon 01-25-2024 aPTT Coag (PPP) [Time] 30.5 second(s) Normal 25.1-36.5 [facility] Comment on above: Result Comment: Para meter 15 days - 4 weeks 1 - 5 months 6 - 11 months 1 - 5 years 6 - 10 years 11 - 17 years PTT Mean: 35.4 (27.6-45.6) Mean: 33.5 (24.8-40.7) Mean: 32.4 (25.1-40.7) Mean: 31.6 (24.0-39.2) Mean: 31.6 (26.9-38.7) Mean: 31.0 (24.6-38.4) Pediatric Reference ranges were obtained from a study by Oc Berry et al. prepared from 1437 samples obtained at 7 different centers using the same coagulation reagent and instrumentation as [facility]. Currently there are no coagulation studies available worldwide for children to 14 days, and no normal ranges. Heparin therapeutic range (represented by Anti-Factor Xa activity of 0.2 - 0.4 U/mL) corresponds to PTT of 56.6 - 109.0 sec. Performed By: #### 1 [id number], [id number], 7260563, 31236036, 58030924, 7298146, 7633629, 5272355 #### [facility] [address] [place] [address] INR Coag (PPP) [Relative time] 1.01 {INR} Invalid Interpretation Code [facility] Comment on above: Result Comment: INR results are specifically intended to assess patients stabilized on long-term Anticoagulation therapy suggested INR?s ?Less Intensive Anticoagulation? 2.0 ? 3.0 Conventional Range 3.0 ? 4.5 Performed By: #### 1 [id number], 5598432, 8350435, 80951676, 08125703, 9794255, 6832355, 6799324 #### [facility] [address] [place] [address] PT Coag (PPP) [Time] 11.3 second(s) Normal 9.4-12.5 [facility] Comment on above: Result Comment: 15 d ays - 4 weeks 1 - 5 months 6 -11 months 1 ? 5 years 6 ? 10 years 11 -17 years Mean: 11.2 (9.5 ? 12.6) Mean: 11.0 (9.7 ? 12.8) Mean: 11.0 (9.8 ? 13.0) Mean: 11.3 (9.9 ? 13.4) Mean: 11.7 (10.0 ? 14.6) Mean: 11.8 (10.0 - 14.1) Pediatric Reference ranges were obtained from a study by roshan Jennings al. prepared from 1437 samples obtained at 7 different centers using the same coagulation reagent and instrumentation as [facility]. Currently there are no coagulation studies available worldwide for children to 14 days, and no normal ranges. Performed By: #### 1 [id number], 7868517, 3492311, 21102416, 28473236, 6954446, 9208707, [id number] #### [facility] [address] [place] [address] Progress Note - Pharmacyon 0 01-25-2024 Progress Note - Pharmacy Vancomycin Phar nico to Dose Consult Note Indication: Empiric Treatment Goal Range: AUC/EUGENE 400-600 RECOMMENDATIONS/PLAN: Pharmacy consulted for vancomycin dosing for STEVE WILLIAMSON, a 59 Years old, Male who is being treated for empiric treatment. 1. Vanco Status: Vancomycin therapy is still active, today is day 1 of treatment. Patient is receiving vancomycin 1250 mg IV q 12 hours 2. Vanco Level: No vancomycin level has been drawn for this dosing regimen 3. Dosing Recs: new start 4. Next Level: the next paired levels are scheduled. Peak at 1030 on 01/26 and trough at 1900 on 01/26 5. MRSA Nasal Swab? a MRSA Nasal swab is not appropriate at this time We will follow patient renal function, vancomycin levels and doses with you during the course of therapy. Additional recommendations will appear in follow up notes. If you have any questions please contact the pharmacy at extension [phone]. Age: 59 Years Allergies: penicillins Weight: Last Documented Weight and Type of Scale Used Last Documented Weight Weight Measured: 86.6 kg (01/25/24 13:54:00) Type of Scale Used Weight Measured Type of Scale: Bed Scale (digital) (01/25/24 13:54:00) Height: Last Documented Height/Length Last Documented Height/Length Height/Length Measured: 178 cm (01/25/24 13:54:00) CrCl: 94 mL/min (SCr 0.9) Labs: WBC: 15.7 E9/L High (01/25/24 14:51:00) RBC: 4.6 E12/L (01/25/24 14:51:00) HGB: 14.6 gm/dL (01/25/24 14:51:00) Hct: 42.9 % (01/25/24 14:51:00) MCV: 92.8 fL (01/25/24 14:51:00) MCH: 31.6 pg (01/25/24 14:51:00) MCHC: 34 gm/dL (01/25/24 14:51:00) RDW: 12.8 % (01/25/24 14:51:00) Platelet: 143 E9/L Low (01/25/24 14:51:00) MPV: 8.6 fL (01/25/24 14:51:00) Neutro Auto: 87.9 % High (01/25/24 14:51:00) Lymph Auto: 5 % Low (01/25/24 14:51:00) Stevens Auto: 6.8 % (01/25/24 14:51:00) Eos Auto: 0.2 % (01/25/24 14:51:00) Basophil Auto: 0.1 % (01/25/24 14:51:00) Neutro Absolute: 13.8 E9/L High (01/25/24 14:51:00) Lymph Absolute: 0.8 E9/L Low (01/25/24 14:51:00) Stevens Absolute: 1.1 E9/L High (01/25/24 14:51:00) Eos Absolute: 0 E9/L (01/25/24 14:51:00) Basophil Absolute: 0 E9/L (01/25/24 14:51:00) PT: 11.3 second(s) (01/25/24 14:51:00) INR: 1.01 (01/25/24 14:51:00) PTT: 30.5 second(s) (01/25/24 14:51:00) Glucose Lvl: 95 mg/dL (01/25/24 14:51:00) Glucose Lvl: 95 mg/dL (01/25/24 14:51:00) BUN: 17 mg/dL (01/25/24 14:51:00) BUN: 17 mg/dL (01/25/24 14:51:00) Creatinine: 0.9 mg/dL (01/25/24 14:51:00) Creatinine: 0.9 mg/dL (01/25/24 14:51:00) eGFR: 100 mL/min/1.73 m2 (01/25/24 14:51:00) BUN/Creat Ratio: 19 (01/25/24 14:51:00) BUN/Creat Ratio: 19 (01/25/24 14:51:00) Sodium Lvl: 137 mmol/L (01/25/24 14:51:00) Sodium Lvl: 137 mmol/L (01/25/24 14:51:00) Potassium Lvl: 3.9 mmol/L (01/25/24 14:51:00) Potassium Lvl: 3.9 mmol/L (01/25/24 14:51:00) Chloride: 100 mmol/L Low (01/25/24 14:51:00) Chloride: 100 mmol/L Low (01/25/24 14:51:00) CO2: 28 mmol/L (01/25/24 14:51:00) CO2: 28 mmol/L (01/25/24 14:51:00) AGAP: 13 mEq/L (01/25/24 14:51:00) AGAP: 13 mEq/L (01/25/24 14:51:00) Calcium Lvl: 9.8 mg/dL (01/25/24 14:51:00) Calcium Lvl: 9.8 mg/dL (01/25/24 14:51:00) Alk Phos: 55 Int._Unit/L (01/25/24 14:51:00) ALT: 21 Int._Unit/L (01/25/24 14:51:00) AST: 18 Int._Unit/L (01/25/24 14:51:00) Total Protein: 7 gm/dL (01/25/24 14:51:00) Albumin Lvl: 4.6 gm/dL (01/25/24 14:51:00) Globulin: 2.4 gm/dL (01/25/24 14:51:00) A/G Ratio: 1.9 (01/25/24 14:51:00) Bili Total: 0.9 mg/dL (01/25/24 14:51:00) Lactic Acid Lvl: 1.8 mmol/L (01/25/24 14:51:00) Troponin: 5 pg/mL Low (01/25/24 14:51:00) UA Spec Desc: Clean Catch (01/25/24 14:05:00) UA Color: STRAW (01/25/24 14:05:00) UA Clarity: Cloudy2 Abnormal (01/25/24 14:05:00) UA Spec Grav: <=1.005 (01/25/24 14:05:00) UA pH: 6.0 (01/25/24 14:05:00) UA Protein: 1+ Abnormal (01/25/24 14:05:00) UA Glucose: NEGATIVE1 (01/25/24 14:05:00) UA Ketones: NEGATIVE1 (01/25/24 14:05:00) UA Bili: NEGATIVE1 (01/25/24 14:05:00) UA Blood: 3+ Abnormal (01/25/24 14:05:00) UA Nitrite: NEGATIVE1 (01/25/24 14:05:00) UA Urobilinogen: 0.2 (01/25/24 14:05:00) UA Leuk Est: 3+ Abnormal (01/25/24 14:05:00) UA RBC: 21-30 Abnormal (01/25/24 14:05:00) UA Squam Epithelial: 0-2 (01/25/24 14:05:00) UA WBC: >75 Abnormal (01/25/24 14:05:00) UA Bacteria: 1+ Abnormal (01/25/24 14:05:00) Normal [facility] Troponinon 01-25-2024 Troponin 5.00 pg/mL Low 15.90-38.40 [facility] Comment on above: Result Comment: The 95% CI (Confidence Interval) PPV (Positive Predictive Value) for myocardial infarction in females is 38 pg/mL, in males 51 pg/mL. The results should be used in conjunction with clinical conditions of myocardial infarction. (Access High Sensitivity Troponin I Instructions For Use, [employer], June 2018) Performed By: #### 1 [id number], [id number], 7036614, 68549508, 97723640, 8910299, 7846211, 8441934 #### [facility] [address] [place] [address] UA With Cult Reflexon 2023 Bacteria LM Ql (Urine sed) 1+ /HPF Abnormal Trace [facility] Comment on above: Performed By: #### 1 [id number], 0366620, 3357214, 17035135, 70547820, 4669114, 5783931, 6053883 #### [facility] [address] [place] [address] Bilirubin Ql (U) Negative Normal Negative [facility] Comment on above: Performed By: #### 1 [id number], 0485815, 0616801, 49149206, 53469648, 4930559, 3938377, 6576037 #### [facility] [address] [place] [address] Clarity (U) CLOUDY Abnormal Clear [facility] Comment on above: Performed By: #### 1 [id number], 9639561, 5322937, 36549241, 08388842, 4773689, 9785768, 3227305 #### [facility] [address] [place] [address] Color (U) STRAW Invalid Interpretation Code [facility] Comment on above: Performed By: #### 1 [id number], 7729492, 2575259, 37848434, 18357509, 8387429, 4905098, 1424013 #### [facility] [address] [place] [address] Epithelial cells.squamous LM.HPF (Urine sed) [#/Area] 0-2 Normal 0-2 [facility] Comment on above: Performed By: #### 1 7544132, 5213384, 4447909, 88656964, 00448841, 0892354, 6059658, 2849125 #### [facility] [address] [place] [address] Glucose Test strip (U) [Mass/Vol] Negative Normal Negative [facility] Comment on above: Performed By: #### 1 1143837, 9695998, 3791871, 35480989, 82263723, 2824815, 7094161, 4737850 #### [facility] [address] [place] [address] Hemoglobin Ql (U) 3+ Abnormal Negative [facility] Comment on above: Performed By: #### 1 1894258, 7699302, 7056829, 24565020, 62056060, 6886389, 0652209, 9319530 #### [facility] [address] [place] [address] Ketones (U) [Mass/Vol] Negative Normal Negative [facility] Comment on above: Performed By: #### 1 5643418, 9693922, 6786690, 79522184, 58874795, 5218915, 4749883, 6054510 #### [facility] [address] [place] [address] [place].plasma/[place].R BC (Bld) [Mass ratio] 21-30 Abnormal 0-3 [facility] Comment on above: Performed By: #### 1 9743475, 4253531, 6552418, 57721862, 07526952, 7988066, 5096132, 8783235 #### [facility] [address] [place] [address] Nitrite Ql (U) Negative Normal Negative [facility] Comment on above: Performed By: #### 1 8699683, 8172396, 1198802, 94458709, 69212078, 2124711, 3329994, 4592300 #### [facility] [address] [place] [address] pH (U) 6.0 [pH] Invalid Interpretation Code 5.0-9.0 [facility] Comment on above: Performed By: #### 1 1192146, 7005933, 8850869, 38100848, 41283381, 7607598, 5259131, 1358054 #### [facility] [address] [place] [address] Protein (U) [Mass/Vol] 1+ Abnormal Negative [facility] Comment on above: Performed By: #### 1 7222937, 0270907, 7086119, 08822545, 36986892, 2740694, 1891927, 9711233 #### [facility] [address] [place] [address] Specific gravity (U) [Rel density] <=1.005 Invalid Interpretation Code 1.005-1.030 [facility] Comment on above: Performed By: #### 1 7440743, 7715969, 0531772, 07470026, 88893493, 2278689, 9608730, 8201077 #### [facility] [address] [place] [address] Type of Urine collection method Clean Catch Normal [facility] Comment on above: Performed By: #### 1 0636588, 9571341, 8657234, 17797116, 49319392, 2789930, 0242912, 6407831 #### [facility] [address] [place] [address] Urobilinogen Qn (U) 0.2 {Kishan'U}/dL Normal 0.0-1.0 [facility] Comment on above: Performed By: #### 1 1238960, 4660046, 1702048, 15076490, 30626098, 1176968, 3353151, 0206564 #### [facility] [address] [place] [address] WBC Auto Ql (U) 3+ Abnormal Negative [facility] Comment on above: Performed By: #### 1 5425198, 5718672, 7449897, 56348152, 30564864, 3680405, 8602631, 4291968 #### [facility] [address] [place] [address] WBC LM.HPF (Urine sed) [#/Area] /[HPF] Abnormal 0-5 [facility] Comment on above: Performed By: #### 1 2668777, 9706197, 2248802, 61423703, 74654716, 2298975, 7870096, 9431800 #### [facility] [address] [place] [address] URINALYSISOrdered By: Lizzy Rice on 01-25-2024 Bacteria LM Ql (Urine sed) 1+ /HPF Invalid Interpretation Code Trace/HPF [facility] UA Auto SS Bilirubin Ql (U) Negative (01/25/24 2:05 PM) Normal Negative [facility] UA Auto SS Clarity (U) Cloudy *ABN* (01/25/24 2:05 PM) Invalid Interpretation Code Clear [facility] UA Auto SS Color (U) STRAW Invalid Interpretation Code [facility] UA Auto SS Epithelial cells.squamous LM.HPF (Urine sed) [#/Area] 0-2 /HPF Normal 0-2/HPF [facility] UA Aut o SS Glucose Test strip (U) [Mass/Vol] Negative (01/25/24 2:05 PM) Normal Negative [facility] UA Auto SS Hemoglobin Ql (U) 3+ *ABN* (01/25/24 2:05 PM) Invalid Interpretation Code Negative [facility] UA Auto SS Ketones (U) [Mass/Vol] Negative (01/25/24 2:05 PM) Normal Negative [facility] UA Auto SS [place].plasma/[place].R BC (Bld) [Mass ratio] 21-30 /HPF Invalid Interpretation Code 0-3/HPF [facility] UA Auto SS Nitrite Ql (U) Negative (01/25/24 2:05 PM) Normal Negative [facility] UA Auto SS pH (U) 6.0 *NA* (3/8/24 2:05 PM) Invalid Interpretation Code 5.0 - 9.0 [facility] UA Auto SS Protein (U) [Mass/Vol] 1+ *ABN* (01/25/24 2:05 PM) Invalid Interpretation Code Negative [facility] UA Auto SS Specific gravity (U) [Rel density] <=1.005 *NA* (01/25/24 2:05 PM) Invalid Interpretation Code 1.005 - 1.030 [facility] UA Auto SS UA Spec Desc Clean Catch (01/25/24 2:05 PM) Normal [facility] UA Auto SS Urobilinogen Qn (U) 0.0304943 {Kishan'U}/dL Normal 0.0 - 1.0 EU/dL [facility] UA Auto SS WBC Auto Ql (U) 3+ *ABN* (01/25/24 2:05 PM) Invalid Interpretation Code Negative [facility] UA Auto SS WBC LM.HPF (Urine sed) [#/Area] /[HPF] Invalid Interpretation Code 0-5/HPF [facility] UA Auto SS XR Chest Single Viewon 01-24 XR Chest Single View Exam Date/Time: 01/25/2024 14:59 EST Reason for Exam: Shortness of breath (SOB) Report [facility] [phone] IMPRESSION: There are no acute cardiopulmonary changes. CLINICAL HISTORY: Shortness of breath (SOB) EXAMINATION: XR Chest Single View COMPARISON: Chest x-ray from 01/04/2024 FINDINGS: The cardiomediastinal silhouette is unremarkable. The lungs are free of infiltrates effusions or consolidations. There are no acute osseous changes. Ordering Provider: Daniel Espinoza FINAL REPORT Dictated: 01/25/2024 3:31 pm Sukhjinder Lindsay MD, V. Signed (Electronic Signature): 01/25/2024 3:31 pm Signed by: Sukhjinder Lindsay MD, V. Transcribed by: JASON Technologist: KHOI Technical Comments Radiation Dose: Ka,r in mGy = 0 DAP = 0 Normal [facility] eGFRon 01-25-2024 eGFR 100 mL/min/1.73 m2 Normal >=59 [facility] Comment on above: Order Comment: Order added by Discern Expert. Performed By: #### 1 [id number], 6187110, 7567116, 79816630, 30195632, 9896485, 2037434, 3510029 #### [facility] [address] [place] [address] Patient Educationon 01-18-20 24 Patient Education Infectious Disease Prostatitis Prostatitis is swelling or inflammation of the prostate gland, also called the prostate. This gland is about 1.5 inches wide and 1 inch high, and it is involved in making semen. The prostate is located below a man's bladder, in front of the rectum. There are four types of prostatitis: ? Chronic prostatitis (CP), also called chronic pelvic pain syndrome (CPPS). This is the most common type of prostatitis. It is associated with increased muscle tone in the area between the hip bones (pelvic area), around the prostate. This type is also known as a pelvic floor disorder. ? Chronic bacterial prostatitis. This type usually results from an acute bacterial infection in the prostate gland that keeps coming back or has not been treated properly. The symptoms are less severe than those caused by acute bacterial prostatitis, which lasts a shorter time. ? Asymptomatic inflammatory prostatitis. This type does not have symptoms and does not need treatment. This is diagnosed when tests are done for other disorders of the urinary tract or reproductive tract. ? Acute bacterial prostatitis. This type starts quickly and results from an acute bacterial infection in the prostate gland. It is usually associated with a bladder infection, high fever, and chills. This is the least common type of prostatitis. What are the causes? Bacterial prostatitis is caused by an infection from bacteria. Chronic nonbacterial prostatitis may be caused by: ? Factors related to the nervous system. This system includes thebrain, spinal cord, and nerves. ? An autoimmune response. This happens when the body's disease-fighting system attacks healthy tissue in the body by mistake. ? Psychological factors. These have to do with how the mind works. The causes of the other types of prostatitis are usually not known. What are the signs or symptoms? Symptoms of this condition depend on the type of prostatitis you have. Acute bacterial prostatitis Symptoms may include: ? Pain or burning during urination. ? Frequent and sudden urges to urinate. ? Trouble starting to urinate. ? Fever. ? Chills. ? Pain in your muscles or joints, lower back, or lower abdomen. Other types of prostatitis Symptoms may include: ? Sudden urges to urinate, or urinating often. ? Trouble starting to urinate. ? Weak urine stream. ? Dribbling after urination. ? Discharge coming from the penis. ? Pain in the testicles, the penis, or the tip of the penis. ? Pain in the area in front of the rectum and below the scrotum (perineum). ? Pain when ejaculating. How is this diagnosed? This condition may be diagnosed based on: ? A physical and medical exam. ? A digital rectal exam. For this, the health care provider may use a finger to feel the prostate. ? A urine test to check for bacteria. ? A semen sample or blood tests. ? Ultrasound. ? Urodynamic tests to check how your body handles urine. ? Cystoscopy to look inside your bladder or inside the part of your body that drains urine from the bladder (urethra). How is this treated? Treatment for this condition depends on the type of prostatitis. Treatment may involve: ? Medicines to relieve pain or inflammation, or to help relax your muscles. ? Physical therapy. ? Heat therapy. ? Biofeedback. These techniques help you control certain body functions. ? Relaxation exercises. ? Antibiotic medicine, if your condition is caused by bacteria. ? Sitz baths. These warm water baths help to relax your pelvic floor muscles, which helps to relieve pressure on the prostate. Follow these instructions at home: Medicines ? Take bzvw-zbi-cwudqln and prescription medicines only as told by your health care provider. ? If you were prescribed an antibiotic medicine, take it as told by your health care provider. Do not stop using the antibiotic even if you start to feel better. Managing pain and swelling ? Take sitz baths as directed by your health care provider. For a sitz bath, sit in warm water that is deep enough to cover your hips and buttocks. ? If directed, apply heat to the affected area as often as told by your health care provider. Use the heat source that your health care provider recommends, such as a moist heat pack or a heating pad. ? Place a towel between your skin and the heat source. ? Leave the heat on for 20?30 minutes. ? Remove the heat if your skin turns bright red. This is especially important if you are unable to feel pain, heat, or cold. You may have a greater risk of getting burned. General instructions ? Do exercises as told by your health care provider, if you were prescribed physical therapy, biofeedback, or relaxation exercises. ? Keep all follow-up visits as told by your health care provider. This is important. Where to find more information ? [employer] and [employer]estive and Kidney Diseases: (more content not included)... Normal [facility] Urology Office/Clinic Noteon 01-18-2024 Urology Office/Clinic Note Chief Complaint S/P TRUS/Bx HPI Staff F/u to review path report from TRUS/bx 01/01/24. Previous dx: BPH with obstruction, elevated PSA. Patient presented to [facility] ER on 01/04/24 due to prostatitis, sepsis following TRUS/BX Patient was admitted and given IV abx, and oral abx on sunday at discharge Patient returned to ER 01/10/24 due to thrombophlebitis due to IV location on arm Still taking Levaquin. Visible blood in urine last seen night. History of Present Illness Tests reviewed: reviewed UA and path report. I have reviewed the previous health record information and history for this patient from Dr. García. I have reviewed and verified the staff HPI to be accurate for this encounter. There have been no associated fever, chills, flank pain, or blood in the urine. Denies any urinary infections since last encounter. Review of Systems PHQ Score Initial Depression Screen Score: 0 SCORE ROS - Provider Constitutional: denies weight loss, denies hot flashes. Eyes: denies eye problems. Gastrointestinal: denies nausea, denies vomiting. Cardiovascular: denies chest pain or angina. Integumentary: no dryness Musculoskeletal: denies musculoskeletal symptoms. ENMT: denies otolaryngeal symptoms. Respiratory: no shortness of breath. Heme/Lymph: denies easy bleeding tendency, denies easy bruising tendency. Psychiatric: no confusion, no anxiety. Genitourinary: See HPI. Physical Exam Vitals & Measurements HR: 68(Peripheral) RR: 16 BP: 116/70 HT: 70 in HT: 178 cm WT: 82 kg WT: 180.4 lb BMI: 25.88 General Appearance: alert, no distress, well nourished, well developed male. Assessment/Plan 1. Elevated PSA (R97.20: Elevated prostate specific antigen [PSA]) PSA: 03/17/22 - 4.6 08/21/23 - 5.4 Denies any known family hx of prostate cancer. SANCHEZ 12/10/23: 45g, benign S/p TRUS/bx 01/01/24. Path report is negative for malignancy. HGPIN left mid. The pathology report was reviewed with the patient in detail today. There is no evidence of malignancy and no further evaluation of the tissue removed is planned. All questions were answered and the report discussed in terms that the patient could understand. Pt presented to [facility] on 01/04/24 due to prostatitis, sepsis following TRUS/BX Pt was admitted and given IV abx, and oral abx on Sunday at discharge. Returned to ER 01/10/24 due to thrombophlebitis due to IV location on arm. Still taking Levaquin. Visible blood in urine last seen night. UA today shows large blood. Pt states he is still fatigued at times. Denies fever. Will continue to monitor PSA. PSA due in 1 year. 2. PIN (prostatic intraepithelial neoplasia) (N42.31: Prostatic intraepithelial neoplasia) Found on recent bx. Will continue to monitor PSA. See #1. 3. BPH with urinary obstruction (N40.1: Benign prostatic hyperplasia with lower urinary tract symptoms) Started on Alfuzosin 10mg ER qd at last visit due to incomplete emptying and weak stream. Pt states he had an ultrasound when he went to the ER and was told he empties well. Continue Alfuzosin as directed. 4. OAB (overactive bladder) (N32.81: Overactive bladder) Pt states he drinks a lot of fluid and voids very frequently, but is not bothered by it. States he has been voiding frequently for years. Gets up 1-2x per night. Denies urgency or incontinence. Discussed oral OAB medications if pt feels his sx warrant adding another medication. Discussed SEs of anticholinergics. Discussed Myrbetriq and Gemtesa, however they could be cost prohibitive. Script sent for Myrbetriq 50mg qd. Pt to call if cost prohibitive and an alternate medication will be sent. 5. Chronic prostatitis (N41.1: Chronic prostatitis) See #1. Found on recent bx. #6. Erectile dysfunction states she has noticed an erection issue, however pt does not notice it. Discussed that prostatitis can affect ED. Discussed oral ED medications. Pt is not taking any Nitro products. Discussed the risk of taking ED meds and nitroglycerin. -Script sent for Cialis 20mg prn Follow-up With When Contact Information RICKY LEVIN, Nadir Mercado, [address] [place] [address]- Additional Instructions: 6 months Patient Education Prostatitis I, Anne Nichols, personally scribed for Dr. García on 01/18/2024 11:45:57. . Documentation recorded by the scribeAnne, accurately reflects the services(s) I performed and decisions made by me. Authenticated by Dr. García on 01/18/2024 11:55:37. Problem List/Past Medical History Ongoing BPH with urinary obstruction Chronic prostatitis Elevated PSA Glaucoma Heart murmur Hyperlipemia OAB (overactive bladder) PIN (prostatic intraepithelial neoplasia) Screen for colon cancer Historical Plantar fasciitis Procedure/Surgical History Transrectal biopsy of prostate using ultrasound (US) guidance (01/01/2024), Colonoscopy (10/26/2023), Arthroscopy of knee (06 (more content not included)... Normal [facility] Comment on above: Result Comment: Elec tronically Signed By: Nadir GARCÍA MD\.br\Date and Time Signed: 01/18/24 11:55 EST\.br\Electronically Co-Signed By: Anne Nichols\.br\Date and Time Co-Signed: 01/18/24 11:49 EST\.br\Electronically Co-Signed By: Anne Nichols\.br\Date and Time Co-Signed: 01/18/24 11:52 EST\.br\Electronically Co-Signed By: Anne Nichols\.br\Date and Time Co-Signed: 01/18/24 11:52 EST ED Note-Physicianon 01-12-20 ED Note-Physician Basic Information Time Seen: Alexis HONG, Daniel Moraes 01/04/2024 15:55 Chief Complaint difficulty urinating. biopsy of prostate by ricky. Pt now has fever and has hematuria History of Present Illness 58-year-old male reports to the emergency department with a chief complaint of some fever as well as hematuria. He states that on Sunday, he had biopsies performed by Dr. García, and the biopsies were performed on his prostate. Reports that yesterday started have some low-grade fevers, and blood in his urine. He reports that he was told to come the emergency department per urology. He reports that he denies any body aches or belly pain with this. He denies being on any blood thinners. Reports otherwise relatively healthy. Was having biopsies performed due to elevated PSA. Denies any other symptoms at this time. Review of Systems A 10 point review of systems is negative except as noted above. Medical and Surgical History: Reviewed and noted Social history: Lives at home Family History: Reviewed. Tobacco: Denies Physical Exam Vitals & Measurements T: 36.9 ?C(Oral) HR: 74(Monitored) RR: 18 BP: 121/78 SpO2: 96% HT: 178 cm WT: 83.6 kg BMI: 26.39 General: The patient appears well and in no apparent distress. Patient is resting comfortably on bed. Febrile Skin: Warm, dry, no pallor noted. Head: Normocephalic, atraumatic Neck: No JVD Eye: PERRLA, EOMI ENT: Moist mucus membranes Cardiovascular: Regular rate normal peripheral perfusion. Radial pulse +2 bilaterally Respiratory: No respiratory distress no accessory muscle use no obvious audible wheezing Chest Wall: no deformity Musculoskeletal: normal ROM, no deformity, no swelling GI: No obvious distention soft nontender nondistended no guarding rebounding or rigidity Neurological: A&O moves all extremities equal strength and symmetry Psychiatric: Cooperative and appropriate Medical Decision Making MEDICAL DECISION MAKING Number and Complexity of Problems Differential Diagnosis: [] [facility] Data External documents reviewed: [] My EKG interpretation: [Reviewed My CT interpretation: [] My X-ray interpretation: Reviewed My Ultrasound interpretation: [] Decision rules/scores evaluated: [] Discussed with: [] Treatment and Disposition ED Course: 58-year-old male reports to the emergency department with chief complaint of possible concerns of fever, as well as hematuria after procedure done in outpatient setting. Reports that he had a biopsy taken of his prostate due to elevated PSA. Reports he only been having a fever. States is also been dealing with upper respiratory illness. Physical exam patient rather benign except he is febrile. Due to concerns though, as well as urology did reach out to us, and they stated that if he did have a white count, or a fever, they want him to be admitted for IV antibiotics. We did do a septic type workup on the patient. Patient did have elevation of white count, as well as he was febrile. Rest of exam was benign. No belly pain. Due to concerns, patient will be admitted. Discussed case with hospitalist, was agreeable with admission. Shared decision making: [] Code status: [] Assessment/Plan 1. Sepsis (A41.9: Sepsis, unspecified organism) 2. Prostatitis (N41.9: Inflammatory disease of prostate, unspecified) 3. BPH with urinary obstruction (N40.1: Benign prostatic hyperplasia with lower urinary tract symptoms) 4. Hyperlipemia (E78.5: Hyperlipidemia, unspecified) Orders: acetaminophen, 650 mg = 2 tab(s), Tab, Oral, Once, Stop date 01/04/24 16:08:00 EST, STAT, Start date 01/04/24 16:08:00 EST, 01/04/24 16:08:00 EST meropenem + Sodium Chloride 0.9% intravenous solution 50 mL, 500 mg = 1 EA, Powder-Inj, IV Piggyback, Once, Stop date 01/04/24 17:00:00 EST, Start date 01/04/24 17:00:00 EST, 100 mL/hr, Infuse over 30 minute(s) Sodium Chloride 0.9% intravenous solution, 1,000 mL, Soln-IV, IV, Once, Stop date 01/04/24 16:08:00 EST, STAT, Start date 01/04/24 16:08:00 EST, Infuse over 61, minute(s) Bladder Scan Blood Culture Charcoal Blood Culture Charcoal CBC w/ Auto Diff Comprehensive Metabolic Panel ECG 12 Lead Adult ED Cardiac Monitoring ED Physician consult Hospitalist for continued care eGFR Extra SST Tube Influenza A&B Ag Lactic Acid Lactic Acid PT & PTT Rapid COVID Antigen ([facility]) Troponin UA With Cult Reflex XR Chest Single View Medications Administered Given acetaminophen 325 mg Tab, 650 mg, Oral [id number] [F] 500 mg + Sodium Chloride 0.9% IV Kena 50 mL Minibag Plus [F] 50 mL, IV Piggyback NS 1000 ml Bolus, 1000 mL, IV Disposition Plan Patient Discharge Condition Stable Discharge Disposition To be admitted Discharge Prescription List Prescriptions No active prescription medications Follow-up No qualifying data available Attestation Patient seen and evaluated by the physician elder assistant. Attending physician was present in the emergency department and (more content not included)... Normal [facility] Comment on above: Result Comment: Elec tronically Signed By: Daniel Espinoza PA-C\.br\Date and Time Signed: 01/04/24 20:59 EST\.br\Electronically Co-Signed By: Sara Patel M.D.\.br\Date and Time Co-Signed: 01/12/24 07:20 EST Coding Queryon 01-10-2024 Coding Query - From: Teresa Rodriguez RN To: Christie LEVIN, [facility]; Sent: 01/10/2024 15:10:07 EST ! Subject: Coding Query Due Date/Time: 01/11/2024 15:09:00 EST Caller Name: STEVE WILLIAMSON; Caller Number: H , B [phone] Documentation in the medical record indicates this patient developed an infection after the following surgical procedure: transrectal US and guided biopsy of the prostate on 01/01. The following is also documented in the medical record: H&P 1. Sepsis (A41.9: Sepsis, unspecified organism) 12/21 prostatitis meets Sirs monitor temp had wbc elevation on admission with temp Awaiting blood cultures Start Meropenem 01/04 Based on your medical judgment, can you please specify the depth of the infection? [___]Infection related to the procedure [___]Infection unrelated to the procedure [___]Other: In responding to this request, please exercise your independent professional judgement. The fact that a question is asked does not imply that any particular answer is desired or expected. Thank you!teresa [phone] From: Christie LEVIN, [place] To: Michael RN, Teresa Morton; Sent: 01/10/2024 16:54:11 EST Subject: RE: Coding Query Caller Name: STEVE WILLIAMSON; Caller Number: H , B [phone] Infection related to the procedure Normal [facility] Consent for Treatmenton 12-21 Consent for Treatment [id number] 0TIFF Normal [facility] Discharge Instructionson Discharge Instructions [id number] 0TIFF Normal [facility] ED Clinical Summaryon 2023 ED Clinical Summary [place] [id number] ED Clinical Summary Person Information Name: STEVE WILLIAMSON Shayna/[facility] Age: 58 Years : 1965 Sex: Male Language: Sri Lankan PCP: DELPHINE BERRY NP Marital Status: Visit Id: Visit Reason: Cellulitis; RT ARM DISCOLORATION/ NUMBNESS Speciality: Acuity: 3 Enc Type: Emergency Med Service: Emergency Arrival: 01/10/2024 09:54:14 Discharge: 01/10/2024 11:26:33 LOS: 000 01:32 Checkin: 01/10/2024 09:54:14 Checkout: 01/10/2024 11:26:33 Dispo Type: Home (Routine DC) EVENTS: Event Name Event Status Request Date/Time Start Date/Time Complete Date/Time Arrive Complete 01/10/2024 09:54:14 01/10/2024 09:54:14 01/10/2024 09:54:14 Document Home Meds Request 01/10/2024 09:54:14 Triage Complete 01/10/2024 09:54:14 01/10/2024 10:05:40 01/10/2024 10:05:40 Bed Assign Complete 01/10/2024 09:57:39 01/10/2024 09:57:39 01/10/2024 09:57:39 Dr Exam Complete 01/10/2024 09:57:39 01/10/2024 10:18:24 01/10/2024 10:18:24 RN Exam Complete 01/10/2024 09:57:39 01/10/2024 11:11:47 01/10/2024 11:11:47 30 Day Return Request 01/10/2024 10:05:41 Registration Complete 01/10/2024 10:18:24 01/10/2024 10:57:41 01/10/2024 10:57:41 Reg Complete Request 01/10/2024 10:57:41 Reg Bed Request Complete 01/10/2024 10:57:41 01/10/2024 10:57:41 01/10/2024 10:57:41 Discharge Complete 01/10/2024 11:06:57 01/10/2024 11:26:43 01/10/2024 11:26:43 Transfer Complete 01/10/2024 11:26:43 01/10/2024 11:26:43 01/10/2024 11:26:43 ADDRESS: [address] [place] [id number] PHYS DOC NOTES: MEDICAL INFORMATION: Prescriptions Given: New Medications [id number], [address], [place] [id number], [phone] cephalexin (Keflex 500 mg Cap) 1 Capsules By Mouth 4 times a day for 7 Days. Refills: 0. Medications to Continue with No Changes Other Medications alfuzosin (alfuzosin 10 mg ER Tab) 1 Tablets By Mouth every day. Refills: 11. latanoprost ophthalmic (latanoprost Opth 0.005% Kena) 1 Drops Ophthalmic once a day (at bedtime). levofloxacin (Levaquin 750 mg Tab) 1 Tablets By Mouth every 24 hours for 14 Days. Refills: 0. rosuvastatin (rosuvastatin 20 mg Tab) 1 Tablets By Mouth every day. PATIENT EDUCATION INFORMATION: Instructions: Thrombophlebitis Follow up: With: Address: When: DELPHINE BERRY In 3 days 01/13/2024 Comments: Call the office of your primary care doctor to arrange for follow-up within the above-stated timeframe. Follow-up with your primary care doctor about this ED visit. You should review your labs, imaging, and diagnoses from this ED visit with your primary care physician. There are occasionally non-emergent findings that require additional follow-up after your ED visit. If you were prescribed medications you should discuss possible side-effects and drug interactions with your pharmacist. Call 911 or go to the nearest Emergency Department if you develop any new or worsening symptoms. DIAGNOSIS: Superficial thrombophlebitis Normal [facility] ED Note-Physicianon 01-10-20 ED Note-Physician Basic Information Time Seen: Amauri Tran DO 01/10/2024 10:18 Chief Complaint Pt states that He was in the hospital on an ATB and was just discharged sunday. Pt states that starting sunday he notced redness on his arm and the redness started to get bigger. Pt states that he is currently taking levaquin. History of Present Illness 58-year-old male to the emergency department the redness and warmth to his arm. He had a previous IV during his hospital stay at this site. He has no other symptoms. Otherwise at baseline health. Review of Systems A 10 point review of systems is negative except as noted above. Medical and Surgical History: Reviewed and noted Social history: Lives at home Tobacco: Denies Physical Exam Vitals & Measurements T: 37.2 ?C(Oral) HR: 65(Monitored) RR: 17 BP: 102/70 SpO2: 96% HT: 178 cm WT: 82.6 kg BMI: 26.07 VITALS: I have reviewed the triage vital signs. GENERAL: Well developed, well appearing adult in no acute distress. NEURO: Alert and oriented. Moves all extremities. Face is symmetric and expressive. EYES: PERRL. No scleral icterus or conjunctival injection. No discharge. HENT: Normocephalic, atraumatic. Hearing is grossly intact. Nares grossly patent and without discharge. Mucous membranes moist. NECK: No JVD. Patient moves neck without restriction. Right upper extremity: Radial pulses intact. Sensation is intact. 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 He has normal range of motion at the wrist, elbow and shoulder. There are some mild erythema and warmth about the antecubital fossa with a small break in the skin consistent with past IV site. Compartments are soft. No edema. SKIN: Warm and dry. Normal turgor. No rash or lesions appreciated. PSYCH: Mood, affect, and interaction is appropriate to the setting. Medical Decision Making 58-year-old male to the emergency department with chief complaint of arm redness. Vital stable, the patient is afebrile. The right upper extremity is neurovascularly intact. There is no concern for compartment syndrome. Does not appear to be necrotizing infection. There appears to be some mild cellulitis/superficial thrombophlebitis at the previous IV site. He is on Levaquin which is not great coverage for skin ernesto. Will add Keflex to his current regimen. He is discharged to follow-up with PCP. Assessment/Plan Superficial thrombophlebitis (I80.9: Phlebitis and thrombophlebitis of unspecified site) Orders: cephalexin, 500 mg = 1 cap(s), Oral, QID, X 7 day(s), # 28 cap(s), Refills(s) 0, Pharmacy: [facility], 178, cm, 01/10/24 10:05:00 EST, Height/Length Dosing, 82.6, kg, 01/10/24 10:05:00 EST, Weight Dosing Disposition Plan Patient Discharge Condition Stable Discharge Disposition Home Discharge Prescription List Prescriptions Keflex 500 mg Cap, 500 mg= 1 cap(s), Oral, QID Follow-up With When Contact Information DELPHINE BERRY In 3 days 01/13/2024 EST Additional Instructions: Call the office of your primary care doctor to arrange for follow-up within the above-stated timeframe. Follow-up with your primary care doctor about this ED visit. You should review your labs, imaging, and diagnoses from this ED visit with your primary care physician. There are occasionally non-emergent findings that require additional follow-up after your ED visit. If you were prescribed medications you should discuss possible side-effects and drug interactions with your pharmacist. Call 911 or go to the nearest Emergency Department if you develop any new or worsening symptoms. Patient Education Thrombophlebitis Problem List/Past Medical History Ongoing BPH with urinary obstruction Elevated PSA Glaucoma Heart murmur Hyperlipemia Screen for colon cancer Historical Plantar fasciitis Procedure/Surgical History Colonoscopy (10/26/2023), Arthroscopy of knee (05/07/2019), ANKLE FRACTURE. Medications Inpatient No active inpatient medications Home alfuzosin 10 mg ER Tab, 10 mg= 1 tab(s), Oral, Daily, 11 refills Keflex 500 mg Cap, 500 mg= 1 cap(s), Oral, QID latanoprost Opth 0.005% Kena, 1 drop(s), OPTH, Once a day (at bedtime) Levaquin 750 mg Tab, 750 mg= 1 tab(s), Oral, q24hr rosuvastatin 20 mg Tab, 20 mg= 1 tab(s), Oral, Daily Allergies penicillins (Unknown, Allergy, Unspecified, Not Elsewhere Classified) Social History Alcohol - Denies Alcohol Use, 05/02/2019 Current, Beer, 1-2 times per week, 1 drinks/episode average. 2.00 drinks/episode maximum. Started age 20 Years. Previous treatment: None. Alcohol use interferes with work or home: No. Drinks more than intended: No. Others hurt by drinking: No. Ready to change: No. Household alcohol concerns: No., 03/07/2013 Substance Abuse - Denies Substance Abuse, 03/07/2013 Tobacco - Denies Tobacco Use, 03/07/2013 Never (less than 100 in lifetime) Tobacco Use:. Never Smokeless Tobacco Use:. Household tobacco concerns: No. Yes, 12/10/2023 Family History Hyperlipi (more content not included)... Normal [facility] Comment on above: Result Comment: Elec tronically Signed By: Amauri Tran DO\.br\Date and Time Signed: 01/10/24 12:01 EST ED Patient Education Noteon 01-10-2024 ED Patient Education Note Cardiovascular Thrombophlebitis Thrombophlebitis is a condition in which a blood clot and inflammation occur inside a vein. This can happen in the arms, legs, or torso. Thrombophlebitis may involve superficial veins, deep veins, or both. Superficial veins are close to the surface of the body and are part of the superficial venous system. Veins that are deeper inside the body are part of the deep venous system. When this condition happens in a superficial vein (superficial thrombophlebitis), it is usually not serious.However, when the condition happens in a vein that is part of the deep venous system (deep vein thrombosis, DVT), it can cause serious problems. What are the causes? This condition may be caused by: ? Infection, injury, or trauma to a vein. ? Inflammation of the veins. ? Medical conditions that can cause blood to clot more easily (hypercoagulable state). ? Backing up, or reflux, of blood flow through the veins (chronic venous insufficiency or venous stasis). What increases the risk? The following factors may make you more likely to develop this condition: ? Having a long, thin tube (catheter) put in a vein, such as a central line, port, or IV catheter. ? Getting certain medicines through a catheter that can irritate the vein. ? or having recently given . ? Cancer. ? Obesity. ? Taking oral contraceptive pills (OCPs) or hormone therapy (HT) medicines. ? Spasms of veins. ? Immobilization, or not moving the limbs for prolonged periods. What are the signs or symptoms? The main symptoms of this condition are: ? Swelling and pain in an arm or leg. If the affected vein is in the leg, you may feel pain while standing or walking. ? Warmth or redness in an arm or leg. ? Tenderness in the affected area when it is touched. Other symptoms include: ? Low-grade fever. ? Muscle aches. ? A bulging or hard vein (venous distension). In some cases, there are no symptoms. How is this diagnosed? This condition may be diagnosed based on: ? Your symptoms and medical history. ? A physical exam. ? Tests, such as a test that uses sound waves to make images (duplex ultrasound). How is this treated? Treatment depends on how severe the condition is and which area of the body is affected. Treatment may include: ? Applying a warm compress or heating pad to affected areas. This may need to be repeated several times a day. ? Moving the affected limb. For example, you may need to start doing walking exercises right away. You will also be encouraged to continue your usual daily activities. ? Raising (elevating) the affected arm or leg above the level of your heart. ? Medicines, such as: ? Anti-inflammatory medicines, such as ibuprofen. ? Blood thinners (anticoagulants) or anti-platelet drugs such as aspirin. ? Removing an IV or central line that may be causing the problem. ? Wearing compression stockings to help prevent blood clots and reduce swelling in your legs. Follow these instructions at home: Medicines ? Take xvft-sds-adhhyht and prescription medicines only as told by your health care provider. ? If you are taking blood thinners: ? Talk with your health care provider before you take any medicines that contain aspirin or NSAIDs, such as ibuprofen. These medicines increase your risk for dangerous bleeding. ? Take your medicine exactly as told, at the same time every day. ? Avoid activities that could cause injury or bruising, and follow instructions about how to prevent falls. ? Wear a medical alert bracelet or carry a card that lists what medicines you take. Managing pain, stiffness, and swelling ? If directed, apply heat to the affected area as often as told by your health care provider. Use the heat source that your health care provider recommends, such as a moist heat pack or a heating pad. ? Place a towel between your skin and the heat source. ? Leave the heat on for 20?30 minutes. ? Remove the heat if your skin turns bright red. This is especially important if you are unable to feel pain, heat, or cold. You have a greater risk of getting burned. ? Elevate the affected area above the level of your heart while you are sitting or lying down. Activity ? Return to your normal activities as told by your health care provider. Ask your health care provider what activities are safe for you. ? Avoid sitting for a long time without moving. Get up to take short walks every 1?2 hours. This is important to improve blood flow and breathing. Ask for help if you feel weak or unsteady. ? Do exercises as told by your health care provider. ? Rest as told by your health care provider. General instructions ? Drink enough fluid to keep your urine pale yellow. ? Wear compression stockings as told by your health care provider. ? Do not use any products that contain nicotine or tobacco. These products include cigarettes, chew (more content not included)... Normal [facility] ED Patient Summaryon 024 ED Patient Summary [address] [address] Patient Discharge Instructions Person Information Name: STEVE WILLIAMSON Age: 58 Years Arrival Date: 01/10/2024 09:54:14 Discharge Diagnosis: Superficial thrombophlebitis Primary Care Physician: DELPHINE BERRY NP Provider Information Primary Provider: Amauri Tran DO Advanced Pipelayer:None The exam and treatment you received in the Emergency Department were for an urgent problem and are not intended as complete care. It is important that you follow up with a doctor, nurse practitioner, or physician?s elder assistant for ongoing care. If your symptoms become worse or you do not improve as expected and you are unable to reach your usual health care provider, you should return to the Emergency Department. We are available 24 hours a day. STEVE WILLIAMSON has been given the following list of patient education materials, prescriptions and follow-up instructions: Follow-up Instructions: With: Address: When: DELPHINE KRISTI In 3 days 01/13/2024 Comments: Call the office of your primary care doctor to arrange for follow-up within the above-stated timeframe. Follow-up with your primary care doctor about this ED visit. You should review your labs, imaging, and diagnoses from this ED visit with your primary care physician. There are occasionally non-emergent findings that require additional follow-up after your ED visit. If you were prescribed medications you should discuss possible side-effects and drug interactions with your pharmacist. Call 911 or go to the nearest Emergency Department if you develop any new or worsening symptoms. In the event that this physician does not participate in your insurance network, please consult with your insurance company to find a nearby participating provider. Patient Education Materials: Thrombophlebitis A MESSAGE TO ALL PATIENTS REGARDING OPIOIDS PRESCRIPTION OPIOIDS: WHAT YOU NEED TO KNOW Prescription opioids can be used to help relieve pqnedxtx-ov-gpzsps pain and are often prescribed following a surgery or injury, or for certain health conditions. These medications can be an important part of the treatment but also come with serious risks. It is important to work with your healthcare provider to make sure you are getting the safest, most effective care. WHAT ARE THE RISKS AND SIDE EFFECTS OF OPIOID USE? Prescription opioids carry serious risks of addiction and overdose, especially with prolonged use. An opioid overdose, often marked by slowed breathing, can cause sudden . The use of prescription opioids can have a number of side effects as well, even when taken as directed: ? Tolerance?meaning you might need to take more of the medication for the same pain relief ? Physical dependence?meaning you have symptoms of withdrawal when a medication is stopped ? Increased sensitivity to pain ? Constipation ? Nausea, vomiting, and dry mouth ? Sleepiness and dizziness ? Confusion ? Depression ? Low levels of testosterone that can result in lower sex drive, energy, and strength ? Itching and sweating RISKS ARE GREATER WITH: ? History of drug misuse, substance use disorder, or overdose ? Mental health conditions (such as depression or anxiety) ? Sleep apnea ? Older age (65 years and older) ? Avoid alcohol while taking prescription opioids. Also, unless specifically advised by your health care provider, medications to avoid include: ? Benzodiazepines (such as Xanax or Valium) ? Muscle relaxants (such as Soma or Flexeril) ? Hypnotics (such as Ambien or Lunesta) ? Other prescription opioids KNOW YOUR OPTIONS Talk to your health care provider about ways to manage your pain that don?t involve prescription opioids. Some of these options may actually work better and have fewer risks and side effects. Options may include: ? Pain relievers such as acetaminophen, ibuprofen, and naproxen ? Some medication that are also used for depression or seizures ? Physical therapy and exercise ? Cognitive behavioral therapy, a psychological, goal-directed approach, in which patients learn how to modify physical, behavioral, and emotional triggers of pain and stress. IF YOU ARE PRESCRIBED OPIOIDS FOR PAIN: ? Never take opioids in greater amounts or more often than prescribed. ? Follow up with your primary health care provider. o Work together to create a plan on how to manage your pain. o Talk about ways to help manage your pain that don?t involve prescription opioids. o Talk about any and all concerns and side effects. ? Help prevent misuse and abuse o Never sell or share prescription opioids. o Never use another person?s prescription opioids. ? Store prescription opioids in a secure place and out of reach of others (this may include visitors, children, friends, and family). ? Saf (more content not included)... Normal [facility] C Urineon 01-08-2024 Bacteria identified Cx Nom (U) Microbiology PROCEDURE: Urine Culture [R1] SOURCE: U CleanCatch BODY SITE: COLLECTED DATE/TIME: 01/04/2024 16:24 EST RECEIVED DATE/TIME: 01/06/2024 08:49 EST START DATE/TIME: 01/06/2024 08:49 EST FREE TEXT SOURCE: Rod Brown DO. Kevin RAMESH, Rod Dailey. FINAL REPORTS Final Report [] Verified Date/Time: 01/08/2024 07:02 EST No growth at 2 days. Performing Locations R1: This test was performed at: [facility], [address] [place] [address], [address] , , [facility] Comment on above: Performed By: #### 1 [id number], [id number], [id number], [id number], [id number], [id number], [id number] #### [facility] [address] [place] [address] Discharge Instructionson Discharge Instructions [id number] [facility] Correspondence Off iceon 01-08-2024 Insurance Correspondence Office [id number]. 00TIFF [facility] BMPon 01-07-2024 Anion gap [Moles/Vol] 11 mmol/L Normal 6-16 [facility] Comment on above: Performed By: #### 1 [id number], [id number], [id number], [id number], [id number], [id number], [id number], [id number] #### [facility] [address] [place] [address] BUN/Creat Ratio 13 No Units Normal 10-20 [facility] Comment on above: Performed By: #### 1 [id number], [id number], [id number], [id number], [id number], [id number], [id number], [id number] #### [facility] [address] [place] [address] Calcium [Mass/Vol] 9.0 mg/dL Normal 8.9-11.1 [facility] Comment on above: Performed By: #### 1 [id number], [id number], [id number], [id number], [id number], 3056876, 2048192, [id number] #### [facility] [address] [place] [address] Chloride [Moles/Vol] 106 mmol/L Normal 101-111 [facility] Comment on above: Performed By: #### 1 [id number], [id number], 5005360, [id number], [id number], 7981178, 7882050, [id number] #### [facility] [address] [place] [address] CO2 [Moles/Vol] 28 mmol/L Normal 21-31 [facility] Comment on above: Performed By: #### 1 [id number], [id number], 8439199, [id number], [id number], 7723273, 7330985, [id number] #### [facility] [address] [place] [address] Creatinine [Mass/Vol] 0.9 mg/dL Normal 0.5-1.3 [facility] Comment on above: Performed By: #### 1 [id number], [id number], 6985819, 91766150, 92333124, 9677438, 9676646, 7540091 #### [facility] [address] [place] [address] Glucose [Mass/Vol] 103 mg/dL Normal 55-199 [facility] Comment on above: Performed By: #### 1 [id number], [id number], 2577044, 80922753, 08412630, 7186094, 5637316, 7006281 #### [facility] [address] [place] [address] Potassium [Moles/Vol] 3.6 mmol/L Normal 3.5-5.3 [facility] Comment on above: Performed By: #### 1 [id number], [id number], 1587425, 88580159, 30410939, 4195141, 7331005, 0305405 #### [facility] [address] [place] [address] Sodium [Moles/Vol] 141 mmol/L Normal 135-145 [facility] Comment on above: Performed By: #### 1 [id number], 1299170, 8346519, 12626406, 98563297, 2395849, 2872587, 9069727 #### [facility] [address] [place] [address] Urea nitrogen [Mass/Vol] 12 mg/dL Normal 5-21 [facility] Comment on above: Performed By: #### 1 5964224, 8519739, 3689669, 29434087, 36276569, 7821483, 1846840, 6448122 #### [facility] [address] [place] [address] CBC w/ Auto Diffon 4 Basophil Absolute 0.0 E9/L Normal 0.0-0.2 [facility] Comment on above: Performed By: #### 1 1854273, 8970241, 9954253, 01621345, 30597830, 8960006, 8284107, 2661354 #### [facility] [address] [place] [address] Basophils/100 WBC (Bld) 0.5 % Normal 0.0-2.0 [facility] Comment on above: Performed By: #### 1 5886116, 5356856, 8662405, 36160184, 67987460, 1276138, 9549233, 3609007 #### [facility] [address] [place] [address] Eos Absolute 0.2 E9/L Normal 0.0-0.5 [facility] Comment on above: Performed By: #### 1 4994524, 0170039, 0104996, 90695454, 72734304, 6775420, 5014440, 6425943 #### [facility] [address] [place] [address] Eosinophils/100 WBC (Bld) 2.5 % Normal 0.0-8.0 [facility] Comment on above: Performed By: #### 1 0548263, 3051602, 7870990, 51538437, 38652647, 7258175, 1467224, 4383737 #### [facility] [address] [place] [address] Erythrocyte distribution width (RBC) [Ratio] 12.9 % Normal 10.9-14.2 [facility] Comment on above: Performed By: #### 1 0096409, 3580169, 0862719, 43370471, 11279278, 6007897, 5108429, 2057512 #### [facility] [address] [place] [address] Hematocrit (Bld) [Volume fraction] 40.0 % Normal 37.7-49.0 [facility] Comment on above: Performed By: #### 1 0570524, 7550909, 5034757, 13405190, 55577894, 3022388, 0645167, 4640608 #### [facility] [address] [place] [address] Hemoglobin (Bld) [Mass/Vol] 14.1 g/dL Normal 13.5-17.5 [facility] Comment on above: Performed By: #### 1 5870664, 5064535, 4131886, 45348684, 62488493, 9870284, 9883444, 6727814 #### [facility] [address] [place] [address] Lymph Absolute 1.2 E9/L Normal 1.0-4.0 [facility] Comment on above: Performed By: #### 1 4624131, 7521441, 9034281, 85124876, 17863636, 6136427, 1607376, 6848008 #### [facility] [address] [place] [address] Lymphocytes/100 WBC (Bld) 18.4 % Normal 14.0-50.0 [facility] Comment on above: Performed By: #### 1 2819183, 7779191, 5745162, 63837771, 31674739, 4690927, 5135289, 1187985 #### [facility] [address] [place] [address] MCH (RBC) [Entitic mass] 32.5 pg Normal 27.0-34.0 [facility] Comment on above: Performed By: #### 1 0717395, 4192776, 1663201, 65448742, 13658728, 1397703, 2379553, 3748873 #### [facility] [address] [address] MCHC (RBC) [Mass/Vol] 35.2 g/dL Normal 31.4-36.0 [facility] Comment on above: Performed By: #### 1 8864409, 6726878, 5611274, 06321950, 33592747, 9980085, 6072546, 3747123 #### [facility] [address] [place], [place] [address] MCV (RBC) [Entitic vol] 92.4 fL Normal 80.0-100.0 [facility] Comment on above: Performed By: #### 1 5538012, 8197752, 8345923, 43032307, 82182250, 1698760, 1234744, 3577714 #### [facility] [address] [place] [address] Stevens Absolute 0.7 E9/L Normal 0.2-1.0 [facility] Comment on above: Performed By: #### 1 1310403, 1689386, 6281823, 11867523, 15286044, 8443176, 8972005, 3724627 #### [facility] [address] [place], [place] [address] Monocytes/100 WBC (Bld) 10.9 % Normal 4.0-14.0 [facility] Comment on above: Performed By: #### 1 5364240, 4054069, 5698834, 23848338, 62775615, 7389759, 7559386, 1986139 #### [facility] [address] [place] [address] Neutro Absolute 4.6 E9/L Normal 2.0-7.5 [facility] Comment on above: Performed By: #### 1 4959986, 4407446, 9434709, 15815640, 25739938, 9205716, 1642009, 5416893 #### [facility] [address] [place] [address] Neutro Auto 67.7 % Normal 36.0-75.0 [facility] Comment on above: Performed By: #### 1 3140157, 0744165, 7183321, 31049253, 39223951, 7435825, 3255218, 6362728 #### [facility] [address] [place] [address] Platelet 143.0 E9/L Low 150.0-500.0 [facility] Comment on above: Performed By: #### 1 8468382, 4824584, 5364283, 18162864, 78244444, 2843781, 4885545, 2741384 #### [facility] [address] [place] [address] Platelet mean volume (Bld) [Entitic vol] 8.1 fL Normal 6.4-10.8 [facility] Comment on above: Performed By: #### 1 7943142, 8717013, 2393924, 33742785, 48855141, 8571935, 5211004, 1934465 #### [facility] [address] [place] [address] RBC 4.3 E12/L Normal 4.3-5.9 [facility] Comment on above: Performed By: #### 1 4779911, 7828292, 1366257, 76717384, 96033582, 8721896, 9676461, 5554327 #### [facility] [address] [place] [address] WBC 6.7 E9/L Normal 4.0-11.0 [facility] Comment on above: Performed By: #### 1 6264631, 9377928, 7453875, 05800134, 12698062, 6572973, 3794748, 5165735 #### [facility] [address] [place] [address] CHEMISTRYOrdered By: SYSTEM SYSTEM on 01-07-2024 Anion gap [Moles/Vol] 11 mmol/L Normal 6 - 16 mEq/L [facility] Calcium [Mass/Vol] 9.0 mg/dL Normal 8.9 - 11. 1 mg/dL [facility] Chloride [Moles/Vol] 106 mmol/L Normal 101 - 1 11 mmol/L [facility] CO2 [Moles/Vol] 28 mmol/L Normal 21 - 31 mmol/L [facility] Creatinine [Mass/Vol] 0.9 mg/dL Normal 0.5 - 1.3 mg/dL [facility] eGFR 100 mL/min/1.73 m2 Normal >=59mL/mi n/ 1.73 m2 [facility] Glucose [Mass/Vol] 103 mg/dL Normal 55 - 199 mg/dL [facility] Potassium [Moles/Vol] 3.6 mmol/L Normal 3.5 - 5.3 mmol/L [facility] Sodium [Moles/Vol] 141 mmol/L Normal 135 - 145 mmol/L [facility] Urea nitrogen [Mass/Vol] 12 mg/dL Normal 5 - 21 mg/dL [facility] Urea nitrogen/Creatinine [Mass ratio] 13 mg/mg Normal 10 - 20 [facility] Discharge Note-Nursingon Discharge Note-Nursing STEVE WILLIAMSON :1965 Visit Date:01/04/2024 Inpatient Discharge Instructions Your Care Team Admitting Physician - Rod Brown DO Consulting Physician - Marvel Patel MD Reason for Your Visit difficulty urinating. biopsy of prostate by ricky. Pt now has fever and has hematuria Your Diagnosis Sepsis Prostatitis BPH with urinary obstruction Hyperlipemia Glaucoma Fever Hematuria Post surgical problem Tests Performed XR Chest Single View This Is Your Medications List alfuzosin (alfuzosin 10 mg ER Tab) latanoprost ophthalmic (latanoprost Opth 0.005% Kena) levofloxacin (Levaquin 750 mg Tab) rosuvastatin (rosuvastatin 20 mg Tab) [Image Removed: STOP]Stop taking these medications diazepam (Valium 10 mg Tab) Procedure History Colonoscopy (10/26/2023), Arthroscopy of knee (05/07/2019), ANKLE FRACTURE. Discharge Vitals Temperature (Oral) 36.8 ?C Heart Rate (Monitored) 65 Respiratory Rate 18 Blood Pressure 133/85 Weight 87.9 kg What to do next Instructions From Your Doctor Event Name Event Result Discharge Diet(s) Regular Pending Diagnostic Test Results None Pharmacy Information [facility] Discharge Instructions Please follow up w/Urology Previously Scheduled Follow-Up Appointments Sunday 11:00 AM EST With: RICKY LEVIN, Nadir Mercado Where: [facility] HEMATOLOGYOrdered By: SYSTEM SYSTEM on 01-07-2024 Basophil Absolute 0.0 E9/L Normal 0.0 - 0.2 E9/L [facility] Basophils/100 WBC (Bld) 0.5 % Normal 0.0 - 2.0 % [facility] Eos Absolute 0.2 E9/L Normal 0.0 - 0.5 E9/L [facility] Eosinophils/100 WBC (Bld) 2.5 % Normal 0.0 - 8.0 % [facility] Erythrocyte distribution width (RBC) [Ratio] 12.9 % Normal 10.9 - 14.2 % [facility] Hematocrit (Bld) [Volume fraction] 40.0 % Normal 37.7 - 49.0 % [facility] Hemoglobin (Bld) [Mass/Vol] 14.1 g/dL Normal 13.5 - 17.5 gm/dL [facility] Lymph Absolute 1.2 E9/L Normal 1.0 - 4.0 E9/L [facility] Lymphocytes/100 WBC (Bld) 18.4 % Normal 14.0 - 50.0 % [facility] MCH (RBC) [Entitic mass] 32.5 pg Normal 27. 0 - 34.0 pg [facility] MCHC (RBC) [Mass/Vol] 35.2 g/dL Normal 31.4 - 36.0 gm/dL [facility] MCV (RBC) [Entitic vol] 92.4 fL Normal 80.0 - 100.0 fL [facility] Stevens Absolute 0.7 E9/L Normal 0.2 - 1.0 E9/L [facility] Monocytes/100 WBC (Bld) 10.9 % Normal 4.0 - 14.0 % [facility] Neutro Absolute 4.6 E9/L Normal 2.0 - 7.5 E9/L [facility] Neutro Auto 67.7 % Normal 36.0 - 75.0 % [facility] Platelet 143.0 E9/L Low 150.0 - 500.0 E9/L [facility] Platelet mean volume (Bld) [Entitic vol] 8.1 fL Normal 6.4 - 10.8 fL [facility] RBC 4.3 E12/L Normal 4.3 - 5.9 E12/L [facility] WBC 6.7 E9/L Normal 4.0 - 11.0 E9/L [facility] Inpatient Clinical Summaryon 01-07-2024 Inpatient Clinical Summary [place] [address] Clinical Summary Person Information: Name: STEVE WILLIAMSON Age: 58 Years : 1965 Sex: Male PCP: DELPHINE BERRY NP Marital Status: Race: White Ethnicity: Non- or Language: Sri [place]ankan Visit Id: Visit Reason: Post surgical problem; Fever; Hematuria; DIFFICULTY URINATING / LOW GRADE FEVER / SENT FROM [facility] Speciality: Acuity: Enc Type: Inpatient Med Service: Medical Arrival: 01/04/2024 15:24:45 Discharge: Dispo Type: Admitted as IP to this Hosp Address: [address] [place] [id number] Provider Notes: Diagnosis: 1:Sepsis; 2:Prostatitis; 3:BPH with urinary obstruction; 4:Hyperlipemia; 5:Glaucoma Problems Active BPH with urinary obstruction Glaucoma Heart murmur Hyperlipemia Elevated PSA Screen for colon cancer Smoking Status: Never Smoker Functional Status: Sensory Deficits: History of Falls: Mobility Assistance Prior to Admission: ADLs: Independent Current Level of Assistance for Self-Care/Mobility: Cognitive Status: Oriented x 3 Allergies penicillins (Unknown) () Measurements: Height: 178 cm Weight: 87.9 kg Blood Pressure: 133 mmHg / 85 mmHg BMI: 26.39 kg/m2 Procedures No Procedures Documented Immunizations No Immunizations Documented This Visit Final Med List: alfuzosin (alfuzosin 10 mg ER Tab) 1 Tablets By Mouth every day. Refills: 11. latanoprost ophthalmic (latanoprost Opth 0.005% Kena) 1 Drops Ophthalmic once a day (at bedtime). levofloxacin (Levaquin 750 mg Tab) 1 Tablets By Mouth every 24 hours for 14 Days. Refills: 0. rosuvastatin (rosuvastatin 20 mg Tab) 1 Tablets By Mouth every day. Care Team Members: Attending Physician: Rod Brown DO Consulting Physician: Amanda LEVIN, Marvel Morton Referring Physician: Follow up: With: Address: When: Nadir GARCÍA [facility], [address], [place] [address] [facility] (1) Comments: Call for followup appointment With: Address: When: DELPHINE BERRY Comments: Call for followup appointment Type Location Start [facility] Office Visit [facility] NOAH Kaufman 01/18/2024 11:00 AM 01/18/2024 11:15 AM Confirmed Patient Education Information: Normal [facility] Inpatient Patient Summaryon 01-07-2024 Inpatient Patient Summary [address] [address] Patient Discharge Instructions PERSON INFORMATION Name: STEVE WILLIAMSON Date of : 1965 Current Date: 01/07/2024 11:12:53 PHYSICIANS Admitting Physician: Rod Brown DO Primary Care Physician: DELPHINE BERRY NP PCP Comment: Discharge Diagnosis: 1:Sepsis; 2:Prostatitis; 3:BPH with urinary obstruction; 4:Hyperlipemia; 5:Glaucoma Condition at Discharge: Stable STEVE WILLIAMSON has been given the following list of follow-up instructions, prescriptions, and patient education materials: PATIENT FOLLOW-UP INFORMATION Diet: Regular Discharge Activity: Discharge Restrictions: Wound Care Instructions: Remove Your Dressing In Days Call Your Doctor For: IF UNABLE TO CONTACT YOUR PHYSICIAN AND YOU FEEL IT IS AN EMERGENCY, GO TO THE NEAREST EMERGENCY ROOM OR CALL 911 Home Treatment: Devices/Equipment: None Special Services: Additional Instructions: Please follow up w/Urology Primary Care Physician to provide the following pending test results: None Follow up: With: Address: When: Nadir GARCÍA [facility], [address], [place] [address] Business (1) Comments: Call for followup appointment With: Address: When: DELPHINE BERRY Comments: Call for followup appointment In the event that this physician does not participate in your insurance network, please consult with your insurance company to find a nearby participating provider. Type Location Start Finish [facility] Office Visit [facility] NOAH Kaufman 01/18/2024 11:00 AM 01/18/2024 11:15 AM Confirmed Comment: DORA Garcia GREGORY A, have received the attached patient education materials/instructions and have verbalized understanding: Patient Signature Date Clinican/Nurse Signature ___ Date HERE ARE THE MEDICATION CHANGES THAT OCCURRED DURING YOUR HOSPITAL STAY New Medications [facility], [address], [place] [id number], [phone] levofloxacin (Levaquin 750 mg Tab) 1 Tablets By Mouth every 24 hours for 14 Days. Refills: 0. Last Dose: ___Next Dose: ___ Medications to Continue with No Changes Other Medications alfuzosin (alfuzosin 10 mg ER Tab) 1 Tablets By Mouth every day. Refills: 11. Last Dose: ___Next Dose: ___ latanoprost ophthalmic (latanoprost Opth 0.005% Kena) 1 Drops Ophthalmic once a day (at bedtime)., glaucoma Last Dose: ___Next Dose: ___ rosuvastatin (rosuvastatin 20 mg Tab) 1 Tablets By Mouth every day. Last Dose: ___Next Dose: ___ No Longer Take the Following Medications diazepam (Valium 10 mg Tab) 1 Tablets By Mouth As Directed as needed for anxiety. Take one hour prior to procedure.. Refills: 0. Comment: MEDICATION LIST PROVIDED FOR YOU IS A LIST OF YOUR CURRENT MEDICATIONS. PLEASE CARRY THIS WITH YOU AT ALL TIMES. alfuzosin (alfuzosin 10 mg ER Tab) 1 Tablets By Mouth every day. Refills: 11. latanoprost ophthalmic (latanoprost Opth 0.005% Kena) 1 Drops Ophthalmic once a day (at bedtime). levofloxacin (Levaquin 750 mg Tab) 1 Tablets By Mouth every 24 hours for 14 Days. Refills: 0. rosuvastatin (rosuvastatin 20 mg Tab) 1 Tablets By Mouth every day. Pharmacy Information: [facility] , Mail Order Comment: PATIENT EDUCATION INFORMATION Instructions: Medication Leaflets: You may receive a survey from Dmitri Carrera asking you to rate your care experience. Your feedback is important and will help us understand what we do well and how we can improve the quality of care we provide to you, your loved ones and our community. It?s an honor to serve you. Thank you for choosing [facility] Normal [facility] Insurance Correspondence Off iceon 01-07-2024 Insurance Correspondence Office [id number] 0TIFF Normal [facility] Interdisciplinary Note - Merrill e Manageron 01-07-2024 Interdisciplinary Note - Early Childhood Services Coordinator Pt will dc today on PO atx. pt's will transport. Return to work letter will be prepared by bedside nurse. Ant dc today. Normal [facility] Comment on above: Result Comment: Elec tronically Signed By: Licha Ley.br\Date and Time Signed: 01/07/24 13:38 EST Interdisciplinary Note - Soc ial Workeron 01-07-2024 Interdisciplinary Note - Weapons Engineer Consult for positive SDOH received for possible issues with transportation to appointments. SW attempted to meet with patient, however he had already been discharged when SW arrived to the floor. SW will remain available. Normal [facility] Monitor Recordon 01-07-2024 Monitor Record [id number]. 00TIFF Normal [facility] Monitor Record [id number]#1. 00TIFF Normal [facility] Prostate Histology ([facility]) on 01-07-2024 Prostate Histology Diagnosis Info Invalid Interpretation Code [facility] Comment on above: Result Comment: A:Pr ostate,Left Lateral Base:Needle Biopsy Interpretation - - Benign prostatic tissue with patchy inflammation. MicroScopic Description - B:Prostate,Left Lateral Mid:Needle Biopsy Interpretation - - Benign prostatic tissue. MicroScopic Description - C:Prostate,Left Lateral [place]:Needle Biopsy Interpretation - - Benign prostatic tissue. MicroScopic Description - D:Prostate,Left Base:Needle Biopsy Interpretation - - Benign prostatic tissue. MicroScopic Description - E:Prostate,Left Mid:Needle Biopsy Interpretation - - High-grade prostatic intraepithelial neoplasia (HGPIN). MicroScopic Description - F:Prostate,Left [place]:Needle Biopsy Interpretation - - Benign prostatic tissue. MicroScopic Description - G:Prostate,Right Base:Needle Biopsy Interpretation - - Benign prostatic tissue. MicroScopic Description - H:Prostate,Right Mid:Needle Biopsy Interpretation - - Benign prostatic tissue. MicroScopic Description - I:Prostate,Right [place]:Needle Biopsy Interpretation - - Benign prostatic tissue with patchy chronic inflammation. MicroScopic Description - J:Prostate,Right Lateral Base:Needle Biopsy Interpretation - - Benign prostatic tissue. MicroScopic Description - K:Prostate,Right Lateral Mid:Needle Biopsy Interpretation - - Benign prostatic tissue. MicroScopic Description - L:Prostate,Right Lateral [place]:Needle Biopsy Interpretation - - Benign prostatic tissue. MicroScopic Description - Gross Description Site ID:A color mccain-white fixative Formalin cores 1 units cm Site ID:B color mccain-white fixative Formalin cores 1 units cm Site ID:C color mccain-white fixative Formalin cores 1 units cm Site ID:D color mccain-white fixative Formalin cores 1 units cm fragmented Site ID:E color mccain-white fixative Formalin cores 1 units cm Site ID:F color mccain-white fixative Formalin cores 1 units cm Site ID:G color mccain-white fixative Formalin cores 1 units cm Site ID:H color mccain-white fixative Formalin cores 1 units cm Site ID:I color mccain-white fixative Formalin cores 1 units cm Site ID:J color mccain-white fixative Formalin cores 1 units cm fragmented Site ID:K color mccain-white fixative Formalin cores 1 units cm Site ID:L color mccain-white fixative Formalin cores 1 units cm CPT code: 03479 x 12 Electronically signed by : on: 01/07/2024 10:12:58 Performed By: #### 1 [id number] ####[facility] [address] [place] [address] eGFRon 01-07-2024 eGFR 100 mL/min/1.73 m2 Normal >=59 [facility] Comment on above: Order Comment: Order added by Discern Expert. Performed By: #### 1 1540365, 1769437, 3711195, 23097153, 85938957, 8975011, 0697728, 1052285 #### [facility] [address] [place] [address] BMPon 01-06-2024 Anion gap [Moles/Vol] 7 mmol/L Normal 6-16 [facility] Comment on above: Performed By: #### 1 0033421, 4752081, 3885298, 56792566, 62549008, 2899283, 5607910, 9524511 #### [facility] [address] [place] [address] BUN/Creat Ratio 18 No Units Normal 10-20 [facility] Comment on above: Performed By: #### 1 9347586, 0951064, 1106160, 08685059, 07982649, 8607260, 5429495, 6942534 #### [facility] [address] [place] [address] Calcium [Mass/Vol] 8.5 mg/dL Low 8.9-11.1 [facility] Comment on above: Performed By: #### 1 6216507, 9779842, 0754815, 17974804, 72598357, 2663309, 6937430, 8220884 #### [facility] [address] [place] [address] Chloride [Moles/Vol] 108 mmol/L Normal 101-111 [facility] Comment on above: Performed By: #### 1 6317202, 8390329, 3688151, 70001544, 74616955, 3984538, 5065791, 0680304 #### [facility] [address] [place] [address] CO2 [Moles/Vol] 27 mmol/L Normal 21-31 [facility] Comment on above: Performed By: #### 1 5669372, 7813113, 9607672, 12211338, 74107947, 2656413, 4296058, 2579682 #### [facility] [address] [place] [address] Creatinine [Mass/Vol] 1.0 mg/dL Normal 0.5-1.3 [facility] Comment on above: Performed By: #### 1 5206317, 3002485, 4386205, 69525219, 46603413, 3191682, 9071331, 1185534 #### [facility] [address] [place] [address] Glucose [Mass/Vol] 119 mg/dL Normal 55-199 [facility] Comment on above: Performed By: #### 1 0954086, 0980461, 8705710, 82198639, 76217035, 6859774, 0464872, 5312779 #### [facility] [address] [place] [address] Potassium [Moles/Vol] 4.2 mmol/L Normal 3.5-5.3 [facility] Comment on above: Performed By: #### 1 1840843, 4474389, 3518974, 10986819, 17260981, 2499144, 7876737, 8215512 #### [facility] [address] [place] [address] Sodium [Moles/Vol] 138 mmol/L Normal 135-145 [facility] Comment on above: Performed By: #### 1 6521984, 1915773, 9105380, 87183089, 35367204, 4282907, 0938552, 0807612 #### [facility] [address] [place] [address] Urea nitrogen [Mass/Vol] 18 mg/dL Normal 5-21 [facility] Comment on above: Performed By: #### 1 3067432, 2356587, 3393115, 17625726, 07623979, 8820429, 8583700, 5918333 #### [facility] [address] [place] [address] CBC w/ Auto Diffon 4 Basophil Absolute 0.0 E9/L Normal 0.0-0.2 [facility] Comment on above: Performed By: #### 1 5026742, 5914615, 7289453, 27557192, 58421069, 5229769, 1563423, 6534456 #### [facility] [address] [place] [address] Basophils/100 WBC (Bld) 0.3 % Normal 0.0-2.0 [facility] Comment on above: Performed By: #### 1 4881184, 3329218, 9788971, 42528006, 64100268, 5612905, 3068549, 0400366 #### [facility] [address] [place] [address] Eos Absolute 0.1 E9/L Normal 0.0-0.5 [facility] Comment on above: Performed By: #### 1 3076395, 9521670, 4536302, 48756994, 14557931, 8199813, 5884114, 2507774 #### [facility] [address] [place], [place] [address] Eosinophils/100 WBC (Bld) 2.1 % Normal 0.0-8.0 [facility] Comment on above: Performed By: #### 1 8276682, 7972102, 1480948, 01028539, 47858056, 7886769, 8457707, 3605571 #### [facility] [address] [place], [place] [address] Erythrocyte distribution width (RBC) [Ratio] 12.4 % Normal 10.9-14.2 [facility] Comment on above: Performed By: #### 1 0026376, 1096101, 4381762, 18448911, 16470238, 1867721, 3655255, 4433247 #### [facility] [address] [place], [place] [address] Hematocrit (Bld) [Volume fraction] 38.0 % Normal 37.7-49.0 [facility] Comment on above: Performed By: #### 1 3267327, 8302698, 0206400, 77345537, [id number], 5695662, 5290256, 6369358 #### [facility] [address] [place], [place] [address] Hemoglobin (Bld) [Mass/Vol] 13.5 g/dL Normal 13.5-17.5 [facility] Comment on above: Performed By: #### 1 3027916, 8882384, 4494966, 68085540, 19098272, 1512282, 0576036, 2586468 #### [facility] [address] [place] [address] Lymph Absolute 0.9 E9/L Low 1.0-4.0 [facility] Comment on above: Performed By: #### 1 4424050, 9555028, 3762423, 96925337, 65599961, 9387616, 8396144, 8577144 #### [facility] [address] [place] [address] Lymphocytes/100 WBC (Bld) 13.8 % Low 14.0-50.0 [facility] Comment on above: Performed By: #### 1 9997233, 2321641, 9215899, 46552020, 91090519, 5325753, 7783042, 2007411 #### [facility] [address] [place] [address] MCH (RBC) [Entitic mass] 32.5 pg Normal 27.0-34.0 [facility] Comment on above: Performed By: #### 1 7051716, 6082231, 0865158, 89824372, 43803848, 3429075, 6708176, 2920605 #### [facility] [address] [place] [address] MCHC (RBC) [Mass/Vol] 35.1 g/dL Normal 31.4-36.0 [facility] Comment on above: Performed By: #### 1 8029149, 4518276, 5554343, 47460251, 87276626, 0580202, 8286903, 0283885 #### [facility] [address] [place] [address] MCV (RBC) [Entitic vol] 92.6 fL Normal 80.0-100.0 [facility] Comment on above: Performed By: #### 1 4381901, 2658545, 3246583, 54903692, 91636514, 6149551, 4391929, 0491601 #### [facility] [address] [place] [address] Stevens Absolute 0.9 E9/L Normal 0.2-1.0 [facility] Comment on above: Performed By: #### 1 2485472, 6180805, 5131627, 10815746, 64268442, 1810784, 6501854, 2292995 #### [facility] [address] [place] [address] Monocytes/100 WBC (Bld) 12.8 % Normal 4.0-14.0 [facility] Comment on above: Performed By: #### 1 5867123, 8436863, 8600511, 04942970, 79631782, 0403965, 8773513, 1228994 #### [facility] [address] [place] [address] Neutro Absolute 4.8 E9/L Normal 2.0-7.5 [facility] Comment on above: Performed By: #### 1 0996250, 7042778, 9748244, 16301347, 84984900, 0168494, 8972442, 1641700 #### [facility] [address] [place] [address] Neutro Auto 71.0 % Normal 36.0-75.0 [facility] Comment on above: Performed By: #### 1 8143132, 9096170, 8823891, 95680603, 68040627, 3993513, 4152586, 3458934 #### [facility] [address] [place] [address] Platelet 115.0 E9/L Low 150.0-500.0 [facility] Comment on above: Performed By: #### 1 6758151, 9591877, 3659841, 23317257, 39497119, 2390616, 3233537, 0536125 #### [facility] [address] [place] [address] Platelet mean volume (Bld) [Entitic vol] 7.9 fL Normal 6.4-10.8 [facility] Comment on above: Performed By: #### 1 1882648, 8409943, 3728328, 85380543, 46801002, 1782031, 3801733, 7931354 #### [facility] [address] [place] [address] RBC 4.2 E12/L Low 4.3-5.9 [facility] Comment on above: Performed By: #### 1 5465963, 8452995, 4513337, 98937709, 53673925, 7004904, 3278649, 3838113 #### [facility] [address] [place] [address] WBC 6.8 E9/L Normal 4.0-11.0 [facility] Comment on above: Performed By: #### 1 1545815, 3216331, 0519672, 81055824, 42365683, 1180940, 6090038, 4891836 #### [facility] [address] [place] [address] CHEMISTRYOrdered By: Myoonet on 01-06-2024 Anion gap [Moles/Vol] 7 mmol/L Normal 6 - 16 mEq/L [facility] Chem Calcium [Mass/Vol] 8.5 mg/dL Low 8.9 - 11. 1 mg/dL [facility] Chloride [Moles/Vol] 108 mmol/L Normal 101 - 1 11 mmol/L [facility] CO2 [Moles/Vol] 27 mmol/L Normal 21 - 31 mmol/L [facility] Creatinine [Mass/Vol] 1.0 mg/dL Normal 0.5 - 1.3 mg/dL [facility] eGFR 88 mL/min/1.73 m2 Normal >=59mL/min / 1.73 m2 [facility] Glucose [Mass/Vol] 119 mg/dL Normal 55 - 199 mg/dL [facility] Potassium [Moles/Vol] 4.2 mmol/L Normal 3.5 - 5.3 mmol/L [facility] Sodium [Moles/Vol] 138 mmol/L Normal 135 - 145 mmol/L [facility] Urea nitrogen [Mass/Vol] 18 mg/dL Normal 5 - 21 mg/dL [facility] Urea nitrogen/Creatinine [Mass ratio] 18 mg/mg Normal 10 - 20 [facility] HEMATOLOGYOrdered By: Lizzy Rice on 01-06-2024 Basophil Absolute 0.0 E9/L Normal 0.0 - 0.2 E9/L [facility]e Basophils/100 WBC (Bld) 0.3 % Normal 0.0 - 2.0 % [facility] Eos Absolute 0.1 E9/L Normal 0.0 - 0.5 E9/L [facility] Eosinophils/100 WBC (Bld) 2.1 % Normal 0.0 - 8.0 % [facility] Erythrocyte distribution width (RBC) [Ratio] 12.4 % Normal 10.9 - 14.2 % [facility] Hematocrit (Bld) [Volume fraction] 38.0 % Normal 37.7 - 49.0 % [facility] Hemoglobin (Bld) [Mass/Vol] 13.5 g/dL Normal 13.5 - 17.5 gm/dL [facility] Lymph Absolute 0.9 E9/L Low 1.0 - 4.0 E9/L [facility] Lymphocytes/100 WBC (Bld) 13.8 % Low 14.0 - 50.0 % [facility] MCH (RBC) [Entitic mass] 32.5 pg Normal 27. 0 - 34.0 pg [facility] MCHC (RBC) [Mass/Vol] 35.1 g/dL Normal 31.4 - 36.0 gm/dL [facility] MCV (RBC) [Entitic vol] 92.6 fL Normal 80.0 - 100.0 fL [facility] Stevens Absolute 0.9 E9/L Normal 0.2 - 1.0 E9/L [facility] Monocytes/100 WBC (Bld) 12.8 % Normal 4.0 - 14.0 % [facility] Neutro Absolute 4.8 E9/L Normal 2.0 - 7.5 E9/L [facility] Neutro Auto 71.0 % Normal 36.0 - 75.0 % [facility] Platelet 115.0 E9/L Low 150.0 - 500.0 E9/L [facility] Platelet mean volume (Bld) [Entitic vol] 7.9 fL Normal 6.4 - 10.8 fL [facility] RBC 4.2 E12/L Low 4.3 - 5.9 E12/L [facility] WBC 6.8 E9/L Normal 4.0 - 11.0 E9/L [facility] Interdisciplinary Note - Merrill e Manageron 01-06-2024 Interdisciplinary Note - Early Childhood Services Coordinator CRM spoke with patient. Patient was previous rounded on by Dr Brown today. Waiting urine cx results, possible dc tomorrow. Pending cx results may need IV ATB at dc. No family in room. Patient is alert and oriented. Whiteboard updated and CRM contact # provided. Patient denies any questions or needs at dc. [facility] Comment on above: Result Comment: Elec tronically Signed By: John TEE, Nancy\.br\Date and Time Signed: 01/06/24 10:57 EST Monitor Recordon 01-06-2024 Monitor Record [id number]#1. 00TIFF [facility] Monitor Record [id number] 20 [id number]#1. 00TIFF [facility] Monitor Record [id number] 20 [id number]#1. 00TIFF [facility] Monitor Record [id number] 20 [id number]#1. 00TIFF [facility] Monitor Record [id number] 20 [id number]#1. 00TIFF [facility] Monitor Record [id number] 20 [id number]#1. 00TIFF [facility] Monitor Record [id number] 20 [id number]#1. 00TIFF [facility] Progress Note-Physicianon Progress Note-Physician Assessment/Plan 1. Sepsis (A41.9: Sepsis, unspecified organism) 2/2 prostatitis Improved, continue to monitor WBC was 14.6 on admission (01/04), trending down and at 6.8 on 01/06 Awaiting blood cultures Continue Meropenem 01/04 Will likely need 2 weeks of IV antibiotics or p.o. antibiotics depending on urine culture 2. Prostatitis (N41.9: Inflammatory disease of prostate, unspecified) 2/2 to above ucx pending Urology consulted and following 3. BPH with urinary obstruction (N40.1: Benign prostatic hyperplasia with lower urinary tract symptoms) Urology consulted and following 4. Hyperlipemia (E78.5: Hyperlipidemia, unspecified) Rosuvastatin 5. Glaucoma (H40.9: Unspecified glaucoma) Continue drops Subjective Patient seen and examined. No acute events overnight. Patient states he is doing well. His chills and aches have subsided. He has had no issues with eating. He denies any chest pain, shortness of breath, nausea, or vomiting. No diarrhea. Review of Systems As state above. Objective Vitals & Measurements T: 36.7 ?C(Oral) TMIN: 36.6 ?C(Oral) TMAX: 37.1 ?C(Oral) HR: 66(Monitored) RR: 18 BP: 107/71 SpO2: 94% WT: 87.1 kg Intake & Output This visit (24 hour periods starting at 07:00 EST) 01/06/24 * 01/05/24 01/04/24 Total Summary Intake mL -- 1,432.28 1,100 Output mL -- 100 -- Fluid Balance -- 1,332.28 1,100 Intake (4) Oral Intake mL -- 360 -- Sodium Chloride 0.9% mL -- -- 1,000 Sodium Chloride 0.9% intravenous solution 1,000 mL mL -- 972.28 -- Sodium Chloride 0.9%, meropenem mL -- 100 100 Total -- 1,432.28 1,100 Output (1) Urine Voided mL -- 100 -- Total -- 100 -- Counts (1) Urine Count -- 2 -- * This column has not completed the indicated time period. Physical Exam General: Looks well, no acute distress, well-nourished, well-kept Skin: Warm, dry Head: No trauma, normocephalic Neck: Trachea midline, supple, negative for JVD Eye: Conjunctive are clear, clear sclera , EOMI ENMT: oral mucosa moist, no lesions or edema nose or external ears Cardiovascular: Regular rate and rhythm, S1-S2 present, negative for murmurs rubs or gallops Respiratory: Lungs clear to auscultation, bilateral symmetric movement, negative for wheezes rales or rhonchi Chest wall: no deformity. Gastrointestinal: Abdomen soft, nontender to palpation, bowel sounds present Back: No tenderness Extremities: Range of motion intact, no edema Neurological: awake, alert, speech normal, cranial nerves II through XII intact, no sensory defects, alert and oriented x3 Psychiatric: cooperative, affect appropriate for age, pleasant Lab Results WBC: 6.8 E9/L (01/06/24 05:51:00) RBC: 4.2 E12/L Low (01/06/24 05:51:00) HGB: 13.5 gm/dL (01/06/24 05:51:00) Hct: 38 % (01/06/24 05:51:00) MCV: 92.6 fL (01/06/24 05:51:00) MCH: 32.5 pg (01/06/24 05:51:00) MCHC: 35.1 gm/dL (01/06/24 05:51:00) RDW: 12.4 % (01/06/24 05:51:00) Platelet: 115 E9/L Low (01/06/24 05:51:00) MPV: 7.9 fL (01/06/24 05:51:00) Neutro Auto: 71 % (01/06/24 05:51:00) Lymph Auto: 13.8 % Low (01/06/24 05:51:00) Stevens Auto: 12.8 % (01/06/24 05:51:00) Eos Auto: 2.1 % (01/06/24 05:51:00) Basophil Auto: 0.3 % (01/06/24 05:51:00) Neutro Absolute: 4.8 E9/L (01/06/24 05:51:00) Lymph Absolute: 0.9 E9/L Low (01/06/24 05:51:00) Stevens Absolute: 0.9 E9/L (01/06/24 05:51:00) Eos Absolute: 0.1 E9/L (01/06/24 05:51:00) Basophil Absolute: 0 E9/L (01/06/24 05:51:00) Glucose Lvl: 119 mg/dL (01/06/24 05:51:00) BUN: 18 mg/dL (01/06/24 05:51:00) Creatinine: 1 mg/dL (01/06/24 05:51:00) eGFR: 88 mL/min/1.73 m2 (01/06/24 05:51:00) BUN/Creat Ratio: 18 (01/06/24 05:51:00) Sodium Lvl: 138 mmol/L (01/06/24 05:51:00) Potassium Lvl: 4.2 mmol/L (01/06/24 05:51:00) Chloride: 108 mmol/L (01/06/24 05:51:00) CO2: 27 mmol/L (01/06/24 05:51:00) AGAP: 7 mEq/L (01/06/24 05:51:00) Calcium Lvl: 8.5 mg/dL Low (01/06/24 05:51:00) Attestation I was present with the MYRIAM zamora for the service. I personally verified the history of present illness and performed the physical examination and medical decision making. I have verified all of the MYRIAM zamora's documentation for this encounter. Problem List/Past Medical History Ongoing BPH with urinary obstruction Elevated PSA Glaucoma Heart murmur Hyperlipemia Screen for colon cancer Historical Plantar fasciitis Medications Inpatient acetaminophen 325 mg Tab, 650 mg= 2 tab(s), Oral, q6hr, PRN alfuzosin 10 mg ER Tab, 1, Oral, Bedtime atorvastatin 40 mg Tab, 40 mg= 1 tab(s), Oral, Daily hydrALAZINE 20 mg/mL Inj, 10 mg= 0.5 mL, IV Push, q6hr, PRN latanoprost Opth 0.005% Kena, 1 drop(s), OPTH, Once a day (at bedtime) meropenem additive + Sodium Chloride 0.9% intravenous solution 50 mL morphine 2 mg/mL Inj, 2 mg= 1 mL, IV Push, q4hr, PRN NS 1000 mL Soln-IV 1,000 mL, 1000 mL, IV Home alfuzosin 10 mg ER Tab, 10 mg= 1 (more content not included)... Normal [facility] Comment on above: Result Comment: Elec tronically Signed By: Cici Figueroa\.gerhard\Date and Time Signed: 01/06/24 08:19 EST\.br\Electronically Co-Signed By: Rod Brown DO\.br\Date and Time Co-Signed: 01/06/24 13:04 EST Progress Note-Physician Patient: STEVE WILLIAMSON Age: 58 years Sex: Male : 1965 Associated Diagnoses: None Author: Marvel Patel MD History of Present Illness notes reviewed----bldcx pending per notes feeling better and no fever past 24hr w/ nl wbc Health Status Allergies: Allergic Reactions (All) Severity Not Documented Penicillins- Unknown and allergy, unspecified, not elsewhere classified., Allergies (1) Active Severity Reaction penicillins Allergy, Unspecified, Not Elsewhere C Classified, Unknown Current medications: (Selected) Inpatient Medications Ordered NS 1000 mL Soln-IV 1,000 mL: 1,000 mL, IV, 125 mL/hr, Routine, Start date 01/05/24 6:38:00 EST, 8 hour(s), Total volume (mL): 1,000, 83.6 kg, 2.03, m2 acetaminophen 325 mg Tab: 650 mg = 2 tab(s), Tab, Oral, q6hr PRN Pain, Routine, Start date 01/04/24 19:18:00 EST, 01/04/24 19:18:00 EST alfuzosin 10 mg ER Tab: alfuzosin 10 mg ER Tab, 1, Tab-ER, Oral, Bedtime, Routine, Start date 01/05/24 21:00:00 EST, if pt can bring in atorvastatin 40 mg Tab: 40 mg = 1 tab(s), Tab, Oral, Daily, Routine, Start date 01/05/24 9:00:00 EST, 01/05/24 6:38:00 EST hydrALAZINE 20 mg/mL Inj: 10 mg = 0.5 mL, Injection, IV Push, q6hr PRN Other (see comment), Routine, Start date 01/04/24 19:18:00 EST, 01/04/24 19:18:00 EST latanoprost Opth 0.005% Kena: 1 drop(s), Soln-Opth, OPTH, Once a day (at bedtime), Routine, Start date 01/05/24 21:00:00 EST meropenem additive + Sodium Chloride 0.9% intravenous solution 50 mL: 1,000 mg = 1 EA, Powder-Inj, IV Piggyback, TID, Routine, Start date 01/04/24 22:00:00 EST, 100 mL/hr, Infuse over 30 minute(s) morphine 2 mg/mL Inj: 2 mg = 1 mL, Injection, IV Push, q4hr PRN Pain for 5 day(s), Stop date 01/09/24 19:17:00 EST, Routine, Start date 01/04/24 19:18:00 EST, 01/04/24 19:18:00 EST Prescriptions Prescribed Valium 10 mg Tab: 10 mg = 1 tab(s), Oral, As Directed, PRN for anxiety, Take one hour prior to procedure., # 1 tab(s), Refills(s) 0, Pharmacy: [facility], 178, cm, 12/10/23 11:59:00 EST, Height/Length Dosing, 82, kg, 12/10/23 11:59:00 EST, Weight Dosing... alfuzosin 10 mg ER Tab: 10 mg = 1 tab(s), Oral, Daily, # 30 tab(s), Refills(s) 11, Pharmacy: [facility], 178, cm, 12/10/23 11:59:00 EST, Height/Length Dosing, 82, kg, 12/10/23 11:59:00 EST, Weight Dosing Documented Medications Documented latanoprost Opth 0.005% Kena: 1 drop(s), OPTH, Once a day (at bedtime), Other (see comment) rosuvastatin 20 mg Tab: 20 mg = 1 tab(s), Oral, Daily, High cholesterol Problem list: All Problems At risk for falls / SNOMED CT 323570528 / Possible Problem added when Risk for Falls Careplan was initiated. BPH with urinary obstruction / SNOMED CT 9317495909 / Confirmed Acute glaucoma / SNOMED CT 54724157 / Confirmed Glaucoma / SNOMED CT 44966578 / Confirmed Heart murmur / SNOMED CT 172928204 / Confirmed High cholesterol / SNOMED CT 40372356 / Confirmed High cholesterol / SNOMED CT 89793293 / Confirmed Hyperlipemia / SNOMED CT 78053247 / Confirmed Knee pain, left / SNOMED CT 76340842 / Confirmed Screen for colon cancer / SNOMED CT 609776920 / Confirmed Elevated PSA / SNOMED CT 9430792725 / Confirmed Transportation insecurity / SNOMED CT 5750444065281352 / Possible Problem added automatically by Discern Expert based on clinical documentation, Active Problems (12) Acute glaucoma At risk for falls BPH with urinary obstruction Elevated PSA Glaucoma Heart murmur High cholesterol High cholesterol Hyperlipemia Knee pain, left Screen for colon cancer Transportation insecurity Histories Past Medical History: Resolved Plantar fasciitis (715572162): Resolved. Comments: 03/07/2013 EDT 12:51 EDT Kerry Ha RN, Lyubov RIGHT FOOT Family History: Hyperlipidemia Father Mother Procedure history: Colonoscopy (570437601) on 10/26/2023 at 58 Years. Arthroscopy of knee (842531209) on 05/07/2019 at 54 Years. Comments: 05/07/2019 13:06 EDT Kerry Tobias RN, Bernice Morton Left knee ANKLE FRACTURE. Comments: 03/07/2013 12:53 EDT Lyubov Ramirez RN LEFT ANKLE ORIF Physical Examination Vital Signs 01/06/2024 8:30 EST Hourly Rounding Yes 01/06/2024 8:25 EST Hourly Rounding Yes Promise to Return Yes 01/06/2024 8:17 EST Heart Rate Monitored 66 bpm SpO2 94 % 01/06/2024 8:16 EST Temperature Oral 36.7 DegC 01/06/2024 8:13 EST Systolic Blood Pressure 107 mmHg Diastolic Blood Pressure 71 mmHg Mean Arterial Pressure, Monitered 83 mmHg 01/06/2024 7:25 EST Hourly Rounding Yes Promise to Return Yes 01/06/2024 6:08 EST Hourly Rounding Yes Promise to Return Yes 01/06/2024 5:08 EST Hourly Rounding Yes Promise to Return Yes 01/06/2024 4:01 EST Hourly Rounding Yes Promise to Return Yes 01/06/2024 3:30 EST Hourly Rounding Yes Promise to Return Yes 01/06/2024 2:22 EST Hourly Rounding Yes Promise to Return Yes 01/06/2024 1:25 EST Hourly Rounding Yes Promise to Return Yes (more content not included)... Normal [facility] Comment on above: Result Comment: Elec tronically Signed By: Amanda LEVIN, Marvel Solis\Date and Time Signed: 01/06/24 09:09 EST eGFRon 01-06-2024 eGFR 88 mL/min/1.73 m2 Normal >=59 [facility] Comment on above: Order Comment: Order added by Discern Expert. Performed By: #### 1 [id number], 9597002, 6389394, 43015747, 77541347, 8796635, 6993629, 0908211 #### [facility] [address] [place] [address] BMPon 01-05-2024 Anion gap [Moles/Vol] 12 mmol/L Normal 6-16 [facility] Comment on above: Performed By: #### 1 1059032, 6661980, 8141238, 55610961, 54906292, 7741903, 3983420, 5592022 #### [facility] [address] [place] [address] BUN/Creat Ratio 17 No Units Normal 10-20 [facility] Comment on above: Performed By: #### 1 5488803, 8523090, 8853074, 51179363, 76908514, 6515309, 3379453, 0349328 #### [facility] [address] [place] [address] Calcium [Mass/Vol] 8.4 mg/dL Low 8.9-11.1 [facility] Comment on above: Performed By: #### 1 8833394, 0991545, 5796813, 48963136, 76337882, 5969844, 0593551, 3622210 #### [facility] [address] [place] [address] Chloride [Moles/Vol] 105 mmol/L Normal 101-111 [facility] Comment on above: Performed By: #### 1 6948547, 6187988, 3945298, 96742735, 72432819, 2622318, 6018251, 0423857 #### [facility] [address] [place] [address] CO2 [Moles/Vol] 22 mmol/L Normal 21-31 [facility] Comment on above: Performed By: #### 1 4002057, 8601522, 7157366, 83716310, 67176610, 1158728, 2931236, 3759248 #### [facility] [address] [place] [address] Creatinine [Mass/Vol] 0.9 mg/dL Normal 0.5-1.3 [facility] Comment on above: Performed By: #### 1 4771456, 8033743, 9828458, 43378080, 01964530, 4727160, 5873909, 1925753 #### [facility] [address] [place] [address] Glucose [Mass/Vol] 106 mg/dL Normal 55-199 [facility] Comment on above: Performed By: #### 1 3499467, 3468452, 5003543, 20577430, 08076090, 1349135, 8822773, 8528750 #### [facility] [address] [place] [address] Potassium [Moles/Vol] 3.8 mmol/L Normal 3.5-5.3 [facility] Comment on above: Performed By: #### 1 6375216, 1211716, 2865388, 79606824, 41232742, 1730815, 1072839, 9584201 #### [facility] [address] [place] [address] Sodium [Moles/Vol] 135 mmol/L Normal 135-145 [facility] Comment on above: Performed By: #### 1 8623831, 8523149, 7487093, 80645940, 37240754, 3938450, 9653261, 3022112 #### [facility] [address] [place] [address] Urea nitrogen [Mass/Vol] 15 mg/dL Normal 5-21 [facility] Comment on above: Performed By: #### 1 1453154, 7411463, 9079713, 77936398, 13152946, 1943454, 8748960, 7261301 #### [facility] [address] [place] [address] CBC w/ Auto Diffon 4 Basophil Absolute 0.0 E9/L Normal 0.0-0.2 [facility] Comment on above: Performed By: #### 1 4767172, 9332465, 9326177, 85120257, 59663623, 1149045, 0634064, 6899715 #### [facility] [address] [place] [address] Basophils/100 WBC (Bld) 0.3 % Normal 0.0-2.0 [facility] Comment on above: Performed By: #### 1 7518036, 2918781, 4583741, 86180001, 96686555, 3651325, 3442592, 1040069 #### [facility] [address] [place] [address] Eos Absolute 0.0 E9/L Normal 0.0-0.5 [facility] Comment on above: Performed By: #### 1 8659953, 3202343, 7183561, 94835526, 66287053, 5016549, 0034257, 2511818 #### [facility] [address] [place] [address] Eosinophils/100 WBC (Bld) 0.3 % Normal 0.0-8.0 [facility] Comment on above: Performed By: #### 1 3790059, 9435703, 6247072, 62211340, 78752209, 0958972, 9285188, 0825962 #### [facility] [address] [place] [address] Erythrocyte distribution width (RBC) [Ratio] 12.5 % Normal 10.9-14.2 [facility] Comment on above: Performed By: #### 1 1603924, 8407165, 0546166, 59436861, 91681599, 2149682, 4219243, 1158015 #### [facility] [address] [place] [address] Hematocrit (Bld) [Volume fraction] 41.0 % Normal 37.7-49.0 [facility] Comment on above: Performed By: #### 1 9153328, 1419867, 1946699, 33714596, 99265864, 5739136, 5744102, 5792598 #### [facility] [address] [place] [address] Hemoglobin (Bld) [Mass/Vol] 14.1 g/dL Normal 13.5-17.5 [facility] Comment on above: Performed By: #### 1 4363887, 4966345, 1219340, 62529987, 32999100, 0275568, 5473598, 0723344 #### [facility] [address] [place] [address] Lymph Absolute 1.7 E9/L Normal 1.0-4.0 [facility] Comment on above: Performed By: #### 1 1804557, 8357627, 9442093, 70204199, 02547053, 3069167, 8143928, 8201263 #### [facility] [address] [place] [address] Lymphocytes/100 WBC (Bld) 14.8 % Normal 14.0-50.0 [facility] Comment on above: Performed By: #### 1 6151124, 9262263, 8030856, 97320350, 67900683, 0203790, 7223135, 2416606 #### [facility] [address] [place] [address] MCH (RBC) [Entitic mass] 31.7 pg Normal 27.0-34.0 [facility] Comment on above: Performed By: #### 1 8248774, 2951688, 0105215, 66583652, 97288710, 5608928, 5390760, 0027690 #### [facility] [address] [place] [address] MCHC (RBC) [Mass/Vol] 34.3 g/dL Normal 31.4-36.0 [facility] Comment on above: Performed By: #### 1 6327945, 8201015, 6923181, 22241505, 48697273, 4609804, 7220909, 3925022 #### [facility] [address] [place] [address] MCV (RBC) [Entitic vol] 92.2 fL Normal 80.0-100.0 [facility] Comment on above: Performed By: #### 1 1272679, 4710145, 7799182, 10554018, 37771819, 2492667, 7175520, 3969522 #### [facility] [address] [place] [address] Stevens Absolute 1.1 E9/L High 0.2-1.0 [facility] Comment on above: Performed By: #### 1 6414350, 7855867, 7489243, 17065650, 01843350, 3255645, 3497152, 0974181 #### [facility] [address] [place] [address] 92474 Monocytes/100 WBC (Bld) 10.2 % Normal 4.0-14.0 [facility] Comment on above: Performed By: #### 1 0941645, 4141714, 4437808, 24199089, 88327992, 1966109, 7548961, 3502439 #### [facility] [address] [place] [address] 76363 Neutro Absolute 8.4 E9/L High 2.0-7.5 [facility] Comment on above: Performed By: #### 1 6533379, 7311079, 5400579, 27951278, 05049951, 0602175, 5843161, 8269805 #### [facility] [address] [place] [address] 19072 Neutro Auto 74.4 % Normal 36.0-75.0 [facility] Comment on above: Performed By: #### 1 7988725, 9646075, 8210182, 45417110, 61979943, 2699262, 8445160, 2094455 #### [facility] [address] [place] [address] Platelet 123.0 E9/L Low 150.0-500.0 [facility] Comment on above: Performed By: #### 1 8220714, 9846475, 4212308, 58997970, 15869072, 2904029, 3386090, 5389812 #### [facility] [address] [address]18[address] Platelet mean volume (Bld) [Entitic vol] 8.4 fL Normal 6.4-10.8 [facility] Comment on above: Performed By: #### 1 4654579, 2992944, 8764227, 27460885, 39100162, 5169947, 8511938, 5220051 #### [facility] [address] [address]18[address] RBC 4.5 E12/L Normal 4.3-5.9 [facility] Comment on above: Performed By: #### 1 8372581, 0086341, 8483656, 77587044, 80044773, 1072532, 8735187, 7675868 #### [facility] [address] [address]18[address] WBC 11.3 E9/L High 4.0-11.0 [facility] Comment on above: Performed By: #### 1 7600100, 8746783, 2977074, 45887347, 27468468, 0329169, 2064841, 3547003 #### [facility] [address] [place] [address] CHEMISTRYOrdered By: SYSTEM SYSTEM on 01-05-2024 Anion gap [Moles/Vol] 12 mmol/L Normal 6 - 16 mEq/L Remisol Chem Calcium [Mass/Vol] 8.4 mg/dL Low 8.9 - 11. 1 mg/dL Remisol Chem Chloride [Moles/Vol] 105 mmol/L Normal 101 - 1 11 mmol/L Remisol Chem CO2 [Moles/Vol] 22 mmol/L Normal 21 - 31 mmol/L Remisol Chem Creatinine [Mass/Vol] 0.9 mg/dL Normal 0.5 - 1.3 mg/dL Remisol Chem eGFR 100 mL/min/1.73 m2 Normal >=59mL/mi n/ 1.73 m2 Remisol Chem Glucose [Mass/Vol] 106 mg/dL Normal 55 - 199 mg/dL Remisol Chem Potassium [Moles/Vol] 3.8 mmol/L Normal 3.5 - 5.3 mmol/L Remisol Chem Sodium [Moles/Vol] 135 mmol/L Normal 135 - 145 mmol/L Remisol Chem Urea nitrogen [Mass/Vol] 15 mg/dL Normal 5 - 21 mg/dL Remisol Chem Urea nitrogen/Creatinine [Mass ratio] 17 mg/mg Normal 10 - 20 Remisol Chem HEMATOLOGYOrdered By: SYSTEM SYSTEM on 01-05-2024 Basophil Absolute 0.0 E9/L Normal 0.0 - 0.2 E9/L Remisol Heme Basophils/100 WBC (Bld) 0.3 % Normal 0.0 - 2.0 % Remisol Heme Eos Absolute 0.0 E9/L Normal 0.0 - 0.5 E9/L Remisol Heme Eosinophils/100 WBC (Bld) 0.3 % Normal 0.0 - 8.0 % Remisol Heme Erythrocyte distribution width (RBC) [Ratio] 12.5 % Normal 10.9 - 14.2 % Remisol Heme Hematocrit (Bld) [Volume fraction] 41.0 % Normal 37.7 - 49.0 % Remisol Heme Hemoglobin (Bld) [Mass/Vol] 14.1 g/dL Normal 13.5 - 17.5 gm/dL Remisol Heme Lymph Absolute 1.7 E9/L Normal 1.0 - 4.0 E9/L Remisol Heme Lymphocytes/100 WBC (Bld) 14.8 % Normal 14.0 - 50.0 % Remisol Heme MCH (RBC) [Entitic mass] 31.7 pg Normal 27. 0 - 34.0 pg Remisol Heme MCHC (RBC) [Mass/Vol] 34.3 g/dL Normal 31.4 - 36.0 gm/dL Remisol Heme MCV (RBC) [Entitic vol] 92.2 fL Normal 80.0 - 100.0 fL Remisol Heme Stevens Absolute 1.1 E9/L High 0.2 - 1.0 E9/L Remisol Heme Monocytes/100 WBC (Bld) 10.2 % Normal 4.0 - 14.0 % Remisol Heme Neutro Absolute 8.4 E9/L High 2.0 - 7.5 E9/L Remisol Heme Neutro Auto 74.4 % Normal 36.0 - 75.0 % Remisol Heme Platelet 123.0 E9/L Low 150.0 - 500.0 E9/L Remisol Heme Platelet mean volume (Bld) [Entitic vol] 8.4 fL Normal 6.4 - 10.8 fL Remisol Heme RBC 4.5 E12/L Normal 4.3 - 5.9 E12/L Remisol Heme WBC 11.3 E9/L High 4.0 - 11.0 E9/L Remisol Heme Interdisciplinary Note - Merrill e Manageron 01-05-2024 Interdisciplinary Note - Early Childhood Services Coordinator CRM spoke with patient. Patient was previous rounded on by Dr Brown today. Will stay 1-2 days for IV ATB, waiting Blood and urine cx. No family in room. Patient is alert and oriented. Whiteboard updated and CRM contact # provided. Patient verified PCP, insurance and denies any DME. Patient is form home with spouse and daughter and denies needs at dc. Discussed pending cx results may need IV ATB and discussed options for H/H or outpatient infusion if IV ATB needed at dc. Patient called and put on speaker phone and CRM explained to her as well. No other questions or needs at this time. [facility] Comment on above: Result Comment: Elec tronically Signed By: John TEE, Nancy\.br\Date and Time Signed: 01/05/24 13:21 EST Monitor Recordon 01-05-2024 Monitor Record [id number]#1. 00TIFF [facility] Monitor Record [id number]#1. 00TIFF [facility] Progress Note-Physicianon Progress Note-Physician Assessment/Plan 1. Sepsis (A41.9: Sepsis, unspecified organism) 2/ prostatitis Improved, continue to monitor WBC was 14.6 on admission (01/04), trending down and at 11.3 on 01/05 Awaiting blood cultures Continue Meropenem 01/04 Will likely need 2 weeks of IV antibiotics or p.o. antibiotics depending on urine culture 2. Prostatitis (N41.9: Inflammatory disease of prostate, unspecified) 2/ to above ucx pending Urology consulted and following 3. BPH with urinary obstruction (N40.1: Benign prostatic hyperplasia with lower urinary tract symptoms) Neurology consulted and following 4. Hyperlipemia (E78.5: Hyperlipidemia, unspecified) Rosuvastatin 5. Glaucoma Continue drops Subjective Patient seen and examined. No acute events overnight. Patient states his chills have persisted but overall he is doing well. He has had no issues with eating. He denies any chest pain, shortness of breath, nausea, or vomiting. No diarrhea. mild fever overnight Review of Systems As stated above Objective Vitals & Measurements T: 37.3 ?C(Oral) TMIN: 36.7 ?C(Oral) TMAX: 38.3 ?C(Oral) HR: 59(Monitored) RR: 16 BP: 122/76 SpO2: 96% HT: 178 cm WT: 84.0 kg Intake & Output This visit (24 hour periods starting at 07:00 EST) 01/05/24 * 01/04/24 01/03/24 Total Summary Intake mL -- 1,100 -- Output mL -- -- -- Fluid Balance -- 1,100 -- Intake (2) Sodium Chloride 0.9% mL -- 1,000 -- Sodium Chloride 0.9%, meropenem mL -- 100 -- Total -- 1,100 -- Output (0) Counts (0) * This column has not completed the indicated time period. Physical Exam General: Looks well, no acute distress, well-nourished, well-kept Skin: Warm, dry Head: No trauma, normocephalic Neck: Trachea midline, supple, negative for JVD Eye: Conjunctive are clear, clear sclera , EOMI ENMT: oral mucosa moist, no lesions or edema nose or external ears Cardiovascular: Regular rate and rhythm, S1-S2 present, negative for murmurs rubs or gallops Respiratory: Lungs clear to auscultation, bilateral symmetric movement, negative for wheezes rales or rhonchi Chest wall: no deformity. Gastrointestinal: Abdomen soft, nontender to palpation, bowel sounds present Back: No tenderness Extremities: Range of motion intact, no edema Neurological: awake, alert, speech normal, cranial nerves II through XII intact, no sensory defects, alert and oriented x3 Psychiatric: cooperative, affect appropriate for age, pleasant Lab Results WBC: 11.3 E9/L High (01/05/24 04:40:00) RBC: 4.5 E12/L (01/05/24 04:40:00) HGB: 14.1 gm/dL (01/05/24 04:40:00) Hct: 41 % (01/05/24 04:40:00) MCV: 92.2 fL (01/05/24 04:40:00) MCH: 31.7 pg (01/05/24 04:40:00) MCHC: 34.3 gm/dL (01/05/24 04:40:00) RDW: 12.5 % (01/05/24 04:40:00) Platelet: 123 E9/L Low (01/05/24 04:40:00) MPV: 8.4 fL (01/05/24 04:40:00) Neutro Auto: 74.4 % (01/05/24 04:40:00) Lymph Auto: 14.8 % (01/05/24 04:40:00) Stevens Auto: 10.2 % (01/05/24 04:40:00) Eos Auto: 0.3 % (01/05/24 04:40:00) Basophil Auto: 0.3 % (01/05/24 04:40:00) Neutro Absolute: 8.4 E9/L High (01/05/24 04:40:00) Lymph Absolute: 1.7 E9/L (01/05/24 04:40:00) Stevens Absolute: 1.1 E9/L High (01/05/24 04:40:00) Eos Absolute: 0 E9/L (01/05/24 04:40:00) Basophil Absolute: 0 E9/L (01/05/24 04:40:00) PT: 15.9 second(s) High (01/04/24 16:20:00) INR: 1.41 (01/04/24 16:20:00) PTT: 34.6 second(s) (01/04/24 16:20:00) Glucose Lvl: 106 mg/dL (01/05/24 04:40:00) BUN: 15 mg/dL (01/05/24 04:40:00) Creatinine: 0.9 mg/dL (01/05/24 04:40:00) eGFR: 100 mL/min/1.73 m2 (01/05/24 04:40:00) BUN/Creat Ratio: 17 (01/05/24 04:40:00) Sodium Lvl: 135 mmol/L (01/05/24 04:40:00) Potassium Lvl: 3.8 mmol/L (01/05/24 04:40:00) Chloride: 105 mmol/L (01/05/24 04:40:00) CO2: 22 mmol/L (01/05/24 04:40:00) AGAP: 12 mEq/L (01/05/24 04:40:00) Calcium Lvl: 8.4 mg/dL Low (01/05/24 04:40:00) Alk Phos: 57 Int._Unit/L (01/04/24 16:20:00) ALT: 23 Int._Unit/L (01/04/24 16:20:00) AST: 20 Int._Unit/L (01/04/24 16:20:00) Total Protein: 7.5 gm/dL (01/04/24 16:20:00) Albumin Lvl: 4.6 gm/dL (01/04/24 16:20:00) Globulin: 2.9 gm/dL (01/04/24 16:20:00) A/G Ratio: 1.6 (01/04/24 16:20:00) Bili Total: 1.5 mg/dL High (01/04/24 16:20:00) Lactic Acid Lvl: 1 mmol/L (01/04/24 20:03:00) Troponin: 8.5 pg/mL Low (01/04/24 16:20:00) UA Spec Desc: Clean Catch (01/04/24 16:24:00) UA Color: Yellow2 (01/04/24 16:24:00) UA Clarity: Clear2 (01/04/24 16:24:00) UA Spec Grav: 1.025 (01/04/24 16:24:00) UA pH: 6.0 (01/04/24 16:24:00) UA Protein: Trace2 Abnormal (01/04/24 16:24:00) UA Glucose: NEGATIVE1 (01/04/24 16:24:00) UA Ketones: 1+ Abnormal (01/04/24 16:24:00) UA Bili: 1+ Abnormal (01/04/24 16:24:00) UA Blood: 3+ Abnormal (01/04/24 16:24:00) UA Nitrite: NEGATIVE1 (01/04/24 16:24:00) UA Urobilinogen: 0.2 (01/04/24 16:24:00) UA Leuk Est: NEGATIVE1 (01/04/24 16:24:00) UA RBC: 4-20 (01/04/24 16:24:00) UA Squam Epithelial (more content not included)... Normal [facility] Comment on above: Result Comment: Elec tronically Signed By: Cici Figueroa\.br\Date and Time Signed: 01/05/24 08:35 EST\.br\Electronically Co-Signed By: Rod Brown DO\.br\Date and Time Co-Signed: 01/05/24 09:07 EST Progress Note-Physician Patient: STEVE WILLIAMSON Age: 58 years Sex: Male : 1965 Associated Diagnoses: None Author: Marvel Patel MD A History of Present Illness as below--spoke w/ pcp as well---ua was mostly unremakable but very likely acute prostatitis s/p pnbx 58 y/o male with PMH significant for hyperlipidemia and BPH who recently underwent a transrectal US and guided biopsy of the prostate on 01/01. He was instructed to report to the ED for concerns of sepsis. Patient states that starting on 01/03 he began to experience cold-like symptoms. Patient had to leave work due to them. He states he had uncontrollable chills, fever, and aches. He has had a decreased appetite. Patient states his oral at home temperature was around 101F. Since surgery, he has been experiencing hematuria which he states has been constant. He denies any changes in frequency, dysuria, chest pain, shortness of breath, nausea, or vomiting. Patient denies any tobacco use. Occasional social drinker. Chest XR was negative. EKG revealed sinus rhythm. CBC showed WBC of 14.6. CMP Na+ of 133. Blood cultures obtained. Patient was started on meropenem and given acetaminophen in the ED. Discussed code status with the patient. He would like to be full-code. Health Status Allergies: Allergic Reactions (All) Severity Not Documented Penicillins- Unknown and allergy, unspecified, not elsewhere classified., Allergies (1) Active Severity Reaction penicillins Allergy, Unspecified, Not Elsewhere C Classified, Unknown Current medications: (Selected) Inpatient Medications Ordered NS 1000 mL Soln-IV 1,000 mL: 1,000 mL, IV, 125 mL/hr, Routine, Start date 01/05/24 6:38:00 EST, 8 hour(s), Total volume (mL): 1,000, 83.6 kg, 2.03, m2 acetaminophen 325 mg Tab: 650 mg = 2 tab(s), Tab, Oral, q6hr PRN Pain, Routine, Start date 01/04/24 19:18:00 EST, 01/04/24 19:18:00 EST alfuzosin 10 mg ER Tab: alfuzosin 10 mg ER Tab, 1, Tab-ER, Oral, Daily, Routine, Start date 01/05/24 9:00:00 EST, if pt can bring in atorvastatin 40 mg Tab: 40 mg = 1 tab(s), Tab, Oral, Daily, Routine, Start date 01/05/24 9:00:00 EST, 01/05/24 6:38:00 EST hydrALAZINE 20 mg/mL Inj: 10 mg = 0.5 mL, Injection, IV Push, q6hr PRN Other (see comment), Routine, Start date 01/04/24 19:18:00 EST, 01/04/24 19:18:00 EST latanoprost Opth 0.005% Kena: 1 drop(s), Soln-Opth, OPTH, Once a day (at bedtime), Routine, Start date 01/05/24 21:00:00 EST meropenem additive + Sodium Chloride 0.9% intravenous solution 50 mL: 1,000 mg = 1 EA, Powder-Inj, IV Piggyback, TID, Routine, Start date 01/04/24 22:00:00 EST, 100 mL/hr, Infuse over 30 minute(s) morphine 2 mg/mL Inj: 2 mg = 1 mL, Injection, IV Push, q4hr PRN Pain for 5 day(s), Stop date 01/09/24 19:17:00 EST, Routine, Start date 01/04/24 19:18:00 EST, 01/04/24 19:18:00 EST Prescriptions Prescribed Valium 10 mg Tab: 10 mg = 1 tab(s), Oral, As Directed, PRN for anxiety, Take one hour prior to procedure., # 1 tab(s), Refills(s) 0, Pharmacy: [facility], 178, cm, 12/10/23 11:59:00 EST, Height/Length Dosing, 82, kg, 12/10/23 11:59:00 EST, Weight Dosing... alfuzosin 10 mg ER Tab: 10 mg = 1 tab(s), Oral, Daily, # 30 tab(s), Refills(s) 11, Pharmacy: [facility], 178, cm, 12/10/23 11:59:00 EST, Height/Length Dosing, 82, kg, 12/10/23 11:59:00 EST, Weight Dosing Documented Medications Documented latanoprost Opth 0.005% Kena: 1 drop(s), OPTH, Once a day (at bedtime), Other (see comment) rosuvastatin 20 mg Tab: 20 mg = 1 tab(s), Oral, Daily, High cholesterol Problem list: All Problems At risk for falls / SNOMED CT 974982595 / Possible Problem added when Risk for Falls Careplan was initiated. BPH with urinary obstruction / SNOMED CT 9352123051 / Confirmed Acute glaucoma / SNOMED CT 42479797 / Confirmed Glaucoma / SNOMED CT 94888287 / Confirmed Heart murmur / SNOMED CT 706572585 / Confirmed High cholesterol / SNOMED CT 02675604 / Confirmed High cholesterol / SNOMED CT 18763508 / Confirmed Hyperlipemia / SNOMED CT 80702387 / Confirmed Knee pain, left / SNOMED CT 52704821 / Confirmed Screen for colon cancer / SNOMED CT 309327424 / Confirmed Elevated PSA / SNOMED CT 5038221086 / Confirmed Transportation insecurity / SNOMED CT 2033501558874736 / Possible Problem added automatically by Discern Expert based on clinical documentation, Active Problems (12) Acute glaucoma At risk for falls BPH with urinary obstruction Elevated PSA Glaucoma Heart murmur High cholesterol High cholesterol Hyperlipemia Knee pain, left Screen for colon cancer Transportation insecurity Histories Past Medical History: Resolved Plantar fasciitis (346717472): Resolved. Comments: 03/07/2013 EDT 12:51 EDT - Dilcia TEE, Lyubov RIGHT FOOT Family History: Hyperlipidemia Father Mother Procedure history: Colonoscopy ([id number]) on 10/26/2023 at 58 Years. Arthroscopy of knee (557087867) on 05/07/2019 at 54 Years. Comments (more content not included)... Normal [facility] Comment on above: Result Comment: Elec tronically Signed By: Amanda LEVIN, Marvel Morton\.br\Date and Time Signed: 01/05/24 08:37 EST eGFRon 01-05-2024 eGFR 100 mL/min/1.73 m2 Normal >=59 [facility] Comment on above: Order Comment: Order added by Discern Expert. Performed By: #### 1 [id number], 3813395, 9089298, 57121706, 61780200, 3339727, 5430038, 7017257 #### [facility] [address] [place] [address] CBC w/ Auto Diffon 4 Basophil Absolute 0.0 E9/L Normal 0.0-0.2 [facility] Comment on above: Performed By: #### 1 4879858, 4549136, 6739930, 27608043, 55073214, 7916332, 7792139, 6914584 #### [facility] [address] [place] [address] Basophils/100 WBC (Bld) 0.1 % Normal 0.0-2.0 [facility] Comment on above: Performed By: #### 1 0926532, 9799771, 1666468, 01109866, 94227495, 6976361, 3857703, 8446890 #### [facility] [address] [place] [address] Eos Absolute 0.0 E9/L Normal 0.0-0.5 [facility] Comment on above: Performed By: #### 1 7322177, 9102500, 0207293, 24258704, 75263796, 6061305, 8499679, 0182496 #### [facility] [address] [place] [address] Eosinophils/100 WBC (Bld) 0.0 % Normal 0.0-8.0 [facility] Comment on above: Performed By: #### 1 2318046, 0435212, 0687370, 91740936, 04551064, 6919039, 9714684, 2834429 #### [facility] [address] [place] [address] Erythrocyte distribution width (RBC) [Ratio] 12.7 % Normal 10.9-14.2 [facility] Comment on above: Performed By: #### 1 9326523, 3719635, 7070370, 80418369, 42888533, 2331392, 0800678, 5333549 #### [facility] [address] [place] [address] Hematocrit (Bld) [Volume fraction] 44.0 % Normal 37.7-49.0 [facility] Comment on above: Performed By: #### 1 5344212, 1775016, 7431577, 99822497, 17671775, 2517944, 4674840, 6564326 #### [facility] [address] [place] [address] Hemoglobin (Bld) [Mass/Vol] 15.5 g/dL Normal 13.5-17.5 [facility] Comment on above: Performed By: #### 1 5068781, 4357311, 3201339, 81020579, 59009494, 4067886, 1732711, 8325077 #### [facility] [address] [place] [address] Lymph Absolute 0.9 E9/L Low 1.0-4.0 [facility] Comment on above: Performed By: #### 1 6092916, 3075896, 8941906, 92220129, 93556162, 8333096, 5266619, 4066120 #### [facility] [address] [place] [address] Lymphocytes/100 WBC (Bld) 6.3 % Low 14.0-50.0 [facility] Comment on above: Performed By: #### 1 6377492, 3182781, 4987378, 53570792, 59384965, 9427198, 3417011, 9263105 #### [facility] [address] [place] [address] MCH (RBC) [Entitic mass] 32.4 pg Normal 27.0-34.0 [facility] Comment on above: Performed By: #### 1 3220199, 5577643, 3631153, 31109351, 97105879, 5279400, 6833515, 2028436 #### [facility] [address] [place] [address] MCHC (RBC) [Mass/Vol] 35.1 g/dL Normal 31.4-36.0 [facility] Comment on above: Performed By: #### 1 6262597, 9885898, 4603291, 23610827, 92680349, 7101623, 3099417, 0367393 #### [facility] [address] [place] [address] MCV (RBC) [Entitic vol] 92.3 fL Normal 80.0-100.0 [facility] Comment on above: Performed By: #### 1 0094999, 6874247, 9908890, 43816496, 41473584, 4491211, 6733036, 8673050 #### [facility] [address] [place] [address] Stevens Absolute 1.2 E9/L High 0.2-1.0 [facility] Comment on above: Performed By: #### 1 2673523, 2720457, 2384131, 74470408, 34190015, 9359977, 3518764, 4901965 #### [facility] [address] [place] [address] Monocytes/100 WBC (Bld) 8.3 % Normal 4.0-14.0 [facility] Comment on above: Performed By: #### 1 9934075, 0388363, 7357109, 41719255, 09209761, 3016995, 7195724, 3474781 #### [facility] [address] [place] [address] Neutro Absolute 12.5 E9/L High 2.0-7.5 [facility] Comment on above: Performed By: #### 1 2541391, 7065565, 3928298, 22794302, 08406475, 7636202, 2667881, 3904171 #### [facility] [address] [address] Neutro Auto 85.3 % High 36.0-75.0 [facility] Comment on above: Performed By: #### 1 4029236, 7707993, 3092201, 21327239, 70510912, 8634566, 2172589, 6952627 #### [facility] [address] [place] [address] Platelet 130.0 E9/L Low 150.0-500.0 [facility] Comment on above: Performed By: #### 1 6918568, 0492084, 8053562, 85521574, 63577440, 4526991, 4295876, 3521011 #### [facility] [address] [place] [address] Platelet mean volume (Bld) [Entitic vol] 8.0 fL Normal 6.4-10.8 [facility] Comment on above: Performed By: #### 1 1253932, 0692046, 5262101, 82910770, 75071033, 9883532, 0920127, 5216659 #### [facility] [address] [place], [place] [address] RBC 4.8 E12/L Normal 4.3-5.9 [facility] Comment on above: Performed By: #### 1 2665140, 0040032, 2967450, 90805439, 96481037, 9729731, 0770305, 3338838 #### [facility] [address] [place] [address] WBC 14.6 E9/L High 4.0-11.0 [facility] Comment on above: Performed By: #### 1 7734491, 0483591, 7150322, 66043045, 91720164, 6458652, 3235564, 2015006 #### [facility] [address] [place] [address] CHEMISTRYOrdered By: SYSTEM SYSTEM on 01-04-2024 Lactic Acid Lvl 1.0 mmol/L Normal 0.5 - 2.2 mmol/L Remisol Chem Albumin [Mass/Vol] 4.6 g/dL Normal 3.3 - 5.0 gm/dL Remisol Chem Albumin/Globulin [Mass ratio] 1.6 {ratio} Normal 1.1 - 2.2 Remisol Chem Alk Phos 57 [iU]/d Normal 21 - 98 Int._Unit/L Remisol Chem ALT 23 [iU]/d Normal 6 - 46 Int._Unit/L Remisol Chem AST 20 [iU]/d Normal 5 - 43 Int._Unit/L Remisol Chem Bili Total 1.5 mg/dL High 0.0 - 1.1 mg/dL Remisol Chem Globulin (S) [Mass/Vol] 2.9 g/dL Normal 1.4 - 4.0 gm/dL Remisol Chem Lactic Acid Lvl 1.3 mmol/L Normal 0.5 - 2.2 mmol/L Remisol Chem Protein [Mass/Vol] 7.5 g/dL Normal 6.0 - 7.8 gm/dL Remisol Chem Troponin 8.50 pg/mL Low 15.90 - 38.40 pg/mL Remisol Chem Comment on above: Interpretive Data: T he 95% CI (Confidence Interval) PPV (Positive Predictive Value) for myocardial infarction in females is 38 pg/mL, in males 51 pg/mL. The results should be used in conjunction with clinical conditions of myocardial infarction. (Access High Sensitivity Troponin I Instructions For Use, Abby Baudilio, June 2018) CMPon 01-04-2024 Albumin [Mass/Vol] 4.6 g/dL Normal 3.3-5.0 [facility] Comment on above: Performed By: #### 1 0227863, 1866898, 8628088, 91265622, 35082381, 6833720, 0466060, 7949968 #### [facility] [address] [place] [address] Albumin/Globulin [Mass ratio] 1.6 {ratio} Normal 1.1-2.2 [facility] Comment on above: Performed By: #### 1 4005422, 7737237, 8429260, 54823762, 45837771, 7546472, 1920926, 1653140 #### [facility] [address] [place] [address] Alk Phos 57 Int._Unit/L Normal 21-98 [facility] Comment on above: Performed By: #### 1 3241890, 5904987, 7771366, 98885416, 77274287, 8391758, 1218768, 9497057 #### [facility] [address] [place] [address] ALT 23 Int._Unit/L Normal 6-46 [facility] Comment on above: Performed By: #### 1 4775095, 1096221, 1266016, 52051282, 06199067, 8098638, 5872648, 0666715 #### [facility] [address] [place] [address] Anion gap [Moles/Vol] 13 mmol/L Normal 6-16 [facility] Comment on above: Performed By: #### 1 1374499, 1554921, 7318385, 95767112, 19352731, 7508656, 5910993, 2375765 #### [facility] [address] [place] [address] AST 20 Int._Unit/L Normal 5-43 [facility] Comment on above: Performed By: #### 1 3560898, 2729451, 2510300, 69182947, 29880683, 2453333, 5728534, 6472361 #### [facility] [address] [place] [address] Bili Total 1.5 mg/dL High 0.0-1.1 [facility] Comment on above: Performed By: #### 1 5656531, 8670627, 9817845, 01909771, 84270830, 1772798, 6546015, 9822510 #### [facility] Laboratory [address] [place] [address] BUN/Creat Ratio 13 No Units Normal 10-20 [facility] Comment on above: Performed By: #### 1 [id number], 6910576, 8844741, 02370413, 53200613, 2751159, 6511694, 2940933 #### [facility] Laboratory [address] [place] [address] Calcium [Mass/Vol] 9.2 mg/dL Normal 8.9-11.1 [facility] Comment on above: Performed By: #### 1 [id number], 6073736, 2073553, 94171814, 44940051, 9272072, 4800675, 4499449 #### [facility] Laboratory [address] [place] [address] Chloride [Moles/Vol] 98 mmol/L Low 101-111 [facility] Comment on above: Performed By: #### 1 4210486, 1998380, 0713111, 92030792, 54900531, 0029455, 1416186, 7489136 #### [facility] Laboratory [address] [place] [address] CO2 [Moles/Vol] 26 mmol/L Normal 21-31 [facility] Comment on above: Performed By: #### 1 [id number], 2924067, 9496311, 59101585, 67889266, 7502051, 1887827, 5250581 #### [facility] Laboratory [address] [place] [address] Creatinine [Mass/Vol] 1.3 mg/dL Normal 0.5-1.3 [facility] Comment on above: Performed By: #### 1 [id number], 0758950, 4518030, 90245010, 36825921, 6657589, 0982624, 2216311 #### [facility] Laboratory [address] [place] [address] Globulin (S) [Mass/Vol] 2.9 g/dL Normal 1.4-4.0 [facility] Comment on above: Performed By: #### 1 6528378, 5039177, 9563385, 65781751, 12762202, 2978010, 7138465, 7089166 #### [facility] Laboratory [address] [place] [address] Glucose [Mass/Vol] 134 mg/dL Normal 55-199 [facility] Comment on above: Performed By: #### 1 1206558, 3120696, 7398321, 88953408, 84831417, 8065534, 2071528, 3556047 #### [facility] Laboratory [address] [place] [address] Potassium [Moles/Vol] 3.7 mmol/L Normal 3.5-5.3 [facility] Comment on above: Performed By: #### 1 3682439, 4264771, 9896094, 60277286, 46625783, 3911059, 1024586, 6764502 #### [facility] Laboratory [address] [place] [address] Protein [Mass/Vol] 7.5 g/dL Normal 6.0-7.8 [facility] Comment on above: Performed By: #### 1 0685006, 4359891, 9156657, 64614847, 48867806, 3390752, 0873867, 5155576 #### [facility] Laboratory [address] [place] [address] Sodium [Moles/Vol] 133 mmol/L Low 135-145 [facility] Comment on above: Performed By: #### 1 8322270, 8623704, 0071714, 20218776, 30163192, 7178717, 7464014, 3569061 #### [facility] Laboratory [address] [place] [address] Urea nitrogen [Mass/Vol] 17 mg/dL Normal 5-21 [facility] Comment on above: Performed By: #### 1 3368623, 7562739, 5594771, 83864191, 55389553, 9741229, 9668917, 0751528 #### [facility] Laboratory [address] [place] [address] COAGULATIONOrdered By: Harris Clifton on 01-04-2024 aPTT Coag (PPP) [Time] 34.6 s Normal 25.1 - 36.5 second(s) [facility] Comment on above: Interpretive Data: Ricky saenz 15 days - 4 weeks 1 - 5 months 6 - 11 months 1 - 5 years 6 - 10 years 11 - 17 years PTT Mean: 35.4 (27.6-45.6) Mean: 33.5 (24.8-40.7) Mean: 32.4 (25.1-40.7) Mean: 31.6 (24.0-39.2) Mean: 31.6 (26.9-38.7) Mean: 31.0 (24.6-38.4) Pediatric Reference ranges were obtained from a study by Oc Berry et al. prepared from 1437 samples obtained at 7 different centers using the same coagulation reagent and instrumentation as [facility]. Currently there are no coagulation studies available worldwide for children to 14 days, and no normal ranges. Heparin therapeutic range (represented by Anti-Factor Xa activity of 0.2 - 0.4 U/mL) corresponds to PTT of 56.6 - 109.0 sec. INR Coag (PPP) [Relative time] 1.41 {INR} Invalid Interpretation Code [facility] Comment on above: Interpretive Data: I NR results are specifically intended to assess patients stabilized on long-term Anticoagulation therapy suggested INR s Less Intensive Anticoagulation 2.0 3.0 Conventional Range 3.0 4.5 PT Coag (PPP) [Time] 15.9 s High 9.4 - 1 2.5 second(s) [facility] Comment on above: Interpretive Data: 1 5 days - 4 weeks 1 - 5 months 6 -11 months 1-5 years 6-10 years 11 -17 years Mean: 11.2 (9.5-12.6) Mean: 11.0 (9.7-12.8) Mean: 11.0 (9.8-13.0) Mean: 11.3 (9.9-13.4) Mean: 11.7 (10.0-14.6) Mean: 11.8 (10.0 - 14.1) Pediatric Reference ranges were obtained from a study by Oc Berry et al. prepared from 1437 samples obtained at 7 different centers using the same coagulation reagent and instrumentation as [facility]. Currently there are no coagulation studies available worldwide for children to 14 days, and no normal ranges. Consent for Treatmenton 12-20 Consent for Treatment [id number] 0TIFF Normal [facility] ED Clinical Summaryon 2023 ED Clinical Summary [place] [id number] ED Clinical Summary Person Information Name: STEVE WILLIAMSON Shayna/[facility] Age: 58 Years : 1965 Sex: Male Language: Sri Lankan PCP: DELPHINE BERRY NP Marital Status: Visit Id: Visit Reason: Post surgical problem; Fever; Hematuria; DIFFICULTY URINATING / LOW GRADE FEVER / SENT FROM [facility] Speciality: Acuity: 2 Enc Type: Inpatient Med Service: Emergency Arrival: 01/04/2024 15:24:45 Discharge: LOS: 000 03:12 Checkin: 01/04/2024 15:24:45 Checkout: 01/04/2024 18:36:58 Dispo Type: Admitted as IP to this [facility] EVENTS: Event Name Event Status Request Date/Time Start Date/Time Complete Date/Time Arrive Complete 01/04/2024 15:24:45 01/04/2024 15:24:45 01/04/2024 15:24:45 Document Home Meds Request 01/04/2024 15:24:45 Triage Complete 01/04/2024 15:24:45 01/04/2024 16:00:58 01/04/2024 16:00:58 Registration Complete 01/04/2024 15:27:01 01/04/2024 15:27:01 01/04/2024 15:27:01 Reg Complete Request 01/04/2024 15:27:01 Reg Bed Request Complete 01/04/2024 15:27:01 01/04/2024 15:27:01 01/04/2024 15:27:01 Bed Assign Complete 01/04/2024 15:53:20 01/04/2024 15:53:20 01/04/2024 15:53:20 Dr Exam Complete 01/04/2024 15:53:20 01/04/2024 15:55:19 01/04/2024 15:55:19 RN Exam Complete 01/04/2024 15:53:20 01/04/2024 16:07:55 01/04/2024 16:07:55 Registration Complete 01/04/2024 15:55:19 01/04/2024 17:14:13 01/04/2024 17:14:13 Dr Exam Complete 01/04/2024 16:05:19 01/04/2024 16:05:19 01/04/2024 16:05:19 EKG Complete 01/04/2024 16:08:46 01/04/2024 16:28:59 Meds Admin Complete 01/04/2024 16:08:46 01/04/2024 16:20:46 Pending Labs Request 01/04/2024 16:08:46 Lab Request 01/04/2024 16:08:46 Urine Collect Complete 01/04/2024 16:08:46 01/04/2024 16:49:57 X-Ray Complete 01/04/2024 16:08:46 01/04/2024 16:09:38 01/04/2024 16:50:22 RT Request 01/04/2024 16:08:46 Pending Labs Complete 01/04/2024 16:09:40 01/04/2024 16:46:36 Lab Complete 01/04/2024 16:09:40 01/04/2024 16:46:36 Swab Complete 01/04/2024 16:09:40 01/04/2024 16:46:36 Meds Admin Complete 01/04/2024 16:13:11 01/04/2024 16:43:29 Patient Care Complete 01/04/2024 16:15:24 01/04/2024 16:38:15 Pending Labs Complete 01/04/2024 16:32:34 01/04/2024 16:32:34 01/04/2024 16:55:05 Lab Complete 01/04/2024 16:32:34 01/04/2024 16:32:34 01/04/2024 16:55:05 Wet Read Request 01/04/2024 16:50:22 Bed Request Request 01/04/2024 17:09:20 Reg Bed Request Complete 01/04/2024 17:09:20 01/04/2024 17:14:13 01/04/2024 17:14:13 Admit Request 01/04/2024 17:09:20 Consult Request 01/04/2024 17:10:48 Hospitalist Consult Request 01/04/2024 17:10:48 Patient Care Request 01/04/2024 17:14:13 Patient Care Request 01/04/2024 17:14:13 Patient Care Request 01/04/2024 17:14:14 Patient Care Request 01/04/2024 17:14:14 Patient Care Complete 01/04/2024 17:14:14 01/04/2024 18:17:43 Patient Care Request 01/04/2024 17:14:14 Fall Risk Request 01/04/2024 18:18:37 Patient Care Request 01/04/2024 18:18:37 ADDRESS: [address] [place] [phone] PHYS DOC NOTES: MEDICAL INFORMATION: Prescriptions Given: Medications to Continue with No Changes Other Medications alfuzosin (alfuzosin 10 mg ER Tab) 1 Tablets By Mouth every day. Refills: 11. diazepam (Valium 10 mg Tab) 1 Tablets By Mouth As Directed as needed for anxiety. Take one hour prior to procedure.. Refills: 0. latanoprost ophthalmic (latanoprost Opth 0.005% Kena) 1 Drops Ophthalmic once a day (at bedtime). rosuvastatin (rosuvastatin 20 mg Tab) 1 Tablets By Mouth every day. PATIENT EDUCATION INFORMATION: Instructions: Follow up: DIAGNOSIS: Prostatitis; Sepsis Normal [facility] ED Patient Education Noteon 01-04-2024 ED Patient Education Note Normal [facility] ED Patient Summaryon 024 ED Patient Summary [place] [id number] Patient Discharge Instructions Person Information Name: STEVE WILLIAMSON Age: 58 Years Arrival Date: 01/04/2024 15:24:45 Discharge Diagnosis: Prostatitis; Sepsis Primary Care Physician: KRISTI MENA, [facility] Provider Information Primary Provider: Sara Patel M.D. Advanced Pipelayer:None The exam and treatment you received in the Emergency Department were for an urgent problem and are not intended as complete care. It is important that you follow up with a doctor, nurse practitioner, or physician?s elder assistant for ongoing care. If your symptoms become worse or you do not improve as expected and you are unable to reach your usual health care provider, you should return to the Emergency Department. We are available 24 hours a day. STEVE WILLIAMSON has been given the following list of patient education materials, prescriptions and follow-up instructions: Follow-up Instructions: In the event that this physician does not participate in your insurance network, please consult with your insurance company to find a nearby participating provider. Patient Education Materials: A MESSAGE TO ALL PATIENTS REGARDING OPIOIDS PRESCRIPTION OPIOIDS: WHAT YOU NEED TO KNOW Prescription opioids can be used to help relieve hhdoxdqh-ow-gntvgp pain and are often prescribed following a surgery or injury, or for certain health conditions. These medications can be an important part of the treatment but also come with serious risks. It is important to work with your healthcare provider to make sure you are getting the safest, most effective care. WHAT ARE THE RISKS AND SIDE EFFECTS OF OPIOID USE? Prescription opioids carry serious risks of addiction and overdose, especially with prolonged use. An opioid overdose, often marked by slowed breathing, can cause sudden . The use of prescription opioids can have a number of side effects as well, even when taken as directed: ? Tolerance?meaning you might need to take more of the medication for the same pain relief ? Physical dependence?meaning you have symptoms of withdrawal when a medication is stopped ? Increased sensitivity to pain ? Constipation ? Nausea, vomiting, and dry mouth ? Sleepiness and dizziness ? Confusion ? Depression ? Low levels of testosterone that can result in lower sex drive, energy, and strength ? Itching and sweating RISKS ARE GREATER WITH: ? History of drug misuse, substance use disorder, or overdose ? Mental health conditions (such as depression or anxiety) ? Sleep apnea ? Older age (65 years and older) ? Avoid alcohol while taking prescription opioids. Also, unless specifically advised by your health care provider, medications to avoid include: ? Benzodiazepines (such as Xanax or Valium) ? Muscle relaxants (such as Soma or Flexeril) ? Hypnotics (such as Ambien or Lunesta) ? Other prescription opioids KNOW YOUR OPTIONS Talk to your health care provider about ways to manage your pain that don?t involve prescription opioids. Some of these options may actually work better and have fewer risks and side effects. Options may include: ? Pain relievers such as acetaminophen, ibuprofen, and naproxen ? Some medication that are also used for depression or seizures ? Physical therapy and exercise ? Cognitive behavioral therapy, a psychological, goal-directed approach, in which patients learn how to modify physical, behavioral, and emotional triggers of pain and stress. IF YOU ARE PRESCRIBED OPIOIDS FOR PAIN: ? Never take opioids in greater amounts or more often than prescribed. ? Follow up with your primary health care provider. o Work together to create a plan on how to manage your pain. o Talk about ways to help manage your pain that don?t involve prescription opioids. o Talk about any and all concerns and side effects. ? Help prevent misuse and abuse o Never sell or share prescription opioids. o Never use another person?s prescription opioids. ? Store prescription opioids in a secure place and out of reach of others (this may include visitors, children, friends, and family). ? Safely dispose of unused prescription opioids: Find your community drug take-back program or your pharmacy mail-back program, or flush them down the toilet, following guidance from the Food and Drug Administration (www.fda.gov/Drugs/Res ourcesForYou). ? Visit www.cdc.gov/drugoverdo se to learn about the risks of opioids abuse and overdose. ? If you believe you may be struggling with addiction, tell your health rn transitional care and ask for guidance or call [facility]?S National Helpline at 8-531-504-JUUI. v Source: US Department of Health and Human Services/Center for Disease Control & Prevention [facility] Medications Given: Medication Dose Route Sodi (more content not included)... Normal [facility] Influenza A&B Agon Influenzae A Ag Negative Normal Negative [facility] Comment on above: Performed By: #### 1 [id number], 7712209, 8922715, 47457576, 73548460, 1880284, 1019855, 1845450 #### [facility] Laboratory [address] [place] [address] Influenzae B Ag Negative Normal Negative [facility] Comment on above: Result Comment: Test sensitivity and specificity vary for age group, specimen type, antigen types, and prevalence of disease. Test results must be evaluated in conjunction with other clinical data available to the physician. Individuals who received nasally administered Influenza A vaccine may have positive test results up to 3 days after vaccination. Performed By: #### 1 [id number], 9697372, 4179970, 46119042, 11181130, 4033207, 6756160, 1196932 #### [facility] Laboratory [address] [place] [address] Laboratory - Microbiology an d Antimicrobial susceptibilityOrdered By: Maryjo Ventura on 01-04-2024 Bacteria identified Cx Nom (U) No growth to date [facility] Lactic Acidon 01-04-2024 Lactic Acid Lvl 1.0 mmol/L Normal 0.5-2.2 [facility] Comment on above: Performed By: #### 2 [id number] #### [facility] Laboratory [address] [place] [address] Lactic Acid Lvl 1.3 mmol/L Normal 0.5-2.2 [facility] Comment on above: Performed By: #### 1 [id number], 1856844, 2983499, 34780438, 54244077, 9350901, 1495968, 0365158 #### [facility] Laboratory [address] [place] [address] MICRO OTHER TESTSOrdered By: Adriana Rivera on 01-04-2024 Influenzae A Ag Negative (01/04/24 4:24 PM) Normal Negative [facility] Man Sero Influenzae B Ag Negative 1 (01/04/24 4:24 PM) Normal Negative [facility] Comment on above: Interpretive Data: T est sensitivity and specificity vary for age group, specimen type, antigen types, and prevalence of disease. Test results must be evaluated in conjunction with other clinical data available to the physician. Individuals who received nasally administered Influenza A vaccine may have positive test results up to 3 days after vaccination. Rapid COV Int NEG Ctl Pass (01/04/24 4:24 PM) Normal [facility] Man Sero Rapid COV Int POS Ctl Pass (01/04/24 4:24 PM) Normal [facility] Sero SARS-CoV+SARS-CoV-2 (COVID-19) Ag IA.rapid Ql (Resp) Not Detected 6 (01/04/24 4:24 PM) Normal Not Detected [facility] Comment on above: Interpretive Data: T he [employer] Veritor System for Rapid Detection of SARS-CoV-2 is a chromatographic digital immunoassay intended for the direct and qualitative detection of SARS-CoV-2 nucleocapsid antigens in nasal swabs from individuals who are suspected of COVID-19 by their healthcare provider within the first five days of the onset of symptoms. Negative results should be treated as presumptive, do not rule out SARS-CoV-2 infection and should not be used as the sole basis for treatment or patient management decisions, including infection control decisions. Negative results should be considered in the context of a patient s recent exposures, history and the presence of clinical signs and symptoms consistent with COVID-19, and confirmed with a molecular assay, if necessary, for patient management. For in vitro diagnostic use. In the [place], only for use under an Emergency Use Authorization. In the [place], this test has not been FDA cleared or approved; this test has been authorized by FDA under an EUA for use by authorized laboratories; use by laboratories certified under the CLIA, 42 U.S.C. 263a, that meet requirements to perform moderate, high, or waived complexity tests and at the Point of Care (POC), i.e., in patient care settings operating under a CLIA Certificate of Waiver, Certificate of Compliance, or Certificate of Accreditation. This test has been authorized only for the detection of proteins from SARS-CoV-2, not for any other viruses or pathogens; and, in the [place], this test is only authorized for the duration of the declaration that circumstances exist justifying the authorization of emergency use of in vitro diagnostics for detection and/or diagnosis of the virus that causes COVID-19 under Section 564(b)(1) of the Act, 21 U.S.C. 360bbb-3(b)(1), unless the authorization is terminated or revoked sooner. Monitor Recordon 01-04-2024 Monitor Record [id number]. [id number] Normal [facility] No Panel InformationOrdered By: ANGPROCESSSERVER MICROBIOLOGY on 01-04-2024 Blood Culture Charcoal No growth at 3 da ys. Final to follow at 7 days. [facility] Blood Culture Charcoal No growth at 3 da ys. Final to follow at 7 days. [facility] PT & PTTon 01-04-2024 aPTT Coag (PPP) [Time] 34.6 second(s) Normal 25.1-36.5 [facility] Comment on above: Result Comment: Para meter 15 days - 4 weeks 1 - 5 months 6 - 11 months 1 - 5 years 6 - 10 years 11 - 17 years PTT Mean: 35.4 (27.6-45.6) Mean: 33.5 (24.8-40.7) Mean: 32.4 (25.1-40.7) Mean: 31.6 (24.0-39.2) Mean: 31.6 (26.9-38.7) Mean: 31.0 (24.6-38.4) Pediatric Reference ranges were obtained from a study by Oc Berry et al. prepared from 1437 samples obtained at 7 different centers using the same coagulation reagent and instrumentation as [facility]. Currently there are no coagulation studies available worldwide for children to 14 days, and no normal ranges. Heparin therapeutic range (represented by Anti-Factor Xa activity of 0.2 - 0.4 U/mL) corresponds to PTT of 56.6 - 109.0 sec. Performed By: #### 1 [id number], 7480017, 0837548, 99352679, 15999884, 9382843, 4643949, 8093646 #### [facility] Laboratory [address] [place] [address] INR Coag (PPP) [Relative time] 1.41 {INR} Invalid Interpretation Code [facility] Comment on above: Result Comment: INR results are specifically intended to assess patients stabilized on long-term Anticoagulation therapy suggested INR?s ?Less Intensive Anticoagulation? 2.0 ? 3.0 Conventional Range 3.0 ? 4.5 Performed By: #### 1 [id number], 4772028, 5978820, 07093622, 22129824, 3987003, 6125352, 7356045 #### [facility] Laboratory [address] [place] [address] PT Coag (PPP) [Time] 15.9 second(s) High 9.4-12.5 [facility] Comment on above: Result Comment: 15 d ays - 4 weeks 1 - 5 months 6 -11 months 1-5 years 6-10 years 11 -17 years Mean: 11.2 (9.5-12.6) Mean: 11.0 (9.7-12.8) Mean: 11.0 (9.8-13.0) Mean: 11.3 (9.9-13.4) Mean: 11.7 (10.0-14.6) Mean: 11.8 (10.0 - 14.1) Pediatric Reference ranges were obtained from a study by Oc Berry et al. prepared from 1437 samples obtained at 7 different centers using the same coagulation reagent and instrumentation as [facility]. Currently there are no coagulation studies available worldwide for children to 14 days, and no normal ranges. Performed By: #### 1 [id number], 9413788, 4936825, 31986886, 50475093, 2038358, 3295168, 0651983 #### [facility] Laboratory [address] [place] [address] Rapid COVID Antigen ([facility])on 01-04-2024 Rapid COV Int NEG Ctl Pass Normal Fis her [facility] Comment on above: Performed By: #### 1 [id number], 6627572, 7119152, 34116810, 86793776, 5743101, 5232228, 4698240 #### [facility] Laboratory [address] [place] [address] Rapid COV Int POS Ctl Pass Normal Fis her [facility] Comment on above: Performed By: #### 1 [id number], 0824432, 5016525, 80630669, 74423785, 4027080, 8332346, 9064718 #### [facility] Laboratory [address] [place] [address] SARS-CoV+SARS-CoV-2 (COVID-19) Ag IA.rapid Ql (Resp) Not detected Normal Not Detected [facility] Comment on above: Result Comment: The [employer] System for Rapid Detection of SARS-CoV-2 is a chromatographic digital immunoassay intended for the direct and qualitative detection of SARS-CoV-2 nucleocapsid antigens in nasal swabs from individuals who are suspected of COVID-19 by their healthcare provider within the first five days of the onset of symptoms. Negative results should be treated as presumptive, do not rule out SARS-CoV-2 infection and should not be used as the sole basis for treatment or patient management decisions, including infection control decisions. Negative results should be considered in the context of a patient?s recent exposures, history and the presence of clinical signs and symptoms consistent with COVID-19, and confirmed with a molecular assay, if necessary, for patient management. For in vitro diagnostic use. In the [place], only for use under an Emergency Use Authorization. In the [place], this test has not been FDA cleared or approved; this test has been authorized by FDA under an EUA for use by authorized laboratories; use by laboratories certified under the CLIA, 42 U.S.C. ?263a, that meet requirements to perform moderate, high, or waived complexity tests and at the Point of Care (POC), i.e., in patient care settings operating under a CLIA Certificate of Waiver, Certificate of Compliance, or Certificate of Accreditation. This test has been authorized only for the detection of proteins from SARS-CoV-2, not for any other viruses or pathogens; and, in the [place], this test is only authorized for the duration of the declaration that circumstances exist justifying the authorization of emergency use of in vitro diagnostics for detection and/or diagnosis of the virus that causes COVID-19 under Section 564(b)(1) of the Act, 21 U.S.C. ? 360bbb-3(b)(1), unless the authorization is terminated or revoked sooner. Performed By: #### 1 [id number], 7994251, 9064401, 61581108, 29639042, 5728909, 5621096, 5974067 #### [facility] Laboratory [address] [place] [address] Troponinon 01-04-2024 Troponin 8.50 pg/mL Low 15.90-38.40 [facility] Comment on above: Result Comment: The 95% CI (Confidence Interval) PPV (Positive Predictive Value) for myocardial infarction in females is 38 pg/mL, in males 51 pg/mL. The results should be used in conjunction with clinical conditions of myocardial infarction. (Access High Sensitivity Troponin I Instructions For Use, Abby Stanberry, June 2018) Performed By: #### 1 [id number], [id number], [id number], [id number] #### [facility] [address] [place] [address] UA With Cult Reflexon 2023 Bacteria LM Ql (Urine sed) TRACE Normal Trace [facility] Comment on above: Performed By: #### 2 [id number] #### [facility] [address] [place] [address] Bilirubin Ql (U) 1+ Abnormal Negative [facility] Comment on above: Performed By: #### 2 [id number] #### [facility] [address] [place] [address] Clarity (U) CLEAR Normal Clear [facility] Comment on above: Performed By: #### 2 [id number] #### [facility] [address] [place] [address] Color (U) YELLOW Normal Yellow [facility] Comment on above: Performed By: #### 2 [id number] #### [facility] [address] [place] [address] Epithelial cells.squamous LM.HPF (Urine sed) [#/Area] 0-2 Normal 0-2 [facility] Comment on above: Performed By: #### 2 [id number] #### [facility] [address] [place] [address] Glucose Test strip (U) [Mass/Vol] Negative Normal Negative [facility] Comment on above: Performed By: #### 2 [id number] #### [facility] [address] [place] [address] Hemoglobin Ql (U) 3+ Abnormal Negative [facility] Comment on above: Performed By: #### 2 [id number] #### [facility] [address] [place] [address] Ketones (U) [Mass/Vol] 1+ Abnormal Negative [facility] Comment on above: Performed By: #### 2 [id number] #### [facility] [address] [place] [address] [place].plasma/Batavia.R BC (Bld) [Mass ratio] 4-20 Normal 0-3 [facility] Comment on above: Performed By: #### 2 [id number] #### [facility] [address] [place] [address] Mucus Ql (Urine sed) 1+ Normal Fish er [facility] Comment on above: Performed By: #### 2 [id number] #### [facility] [address] [place] [address] Nitrite Ql (U) Negative Normal Negative [facility] Comment on above: Performed By: #### 2 [id number] #### [facility] [address] [place] [address] pH (U) 6.0 [pH] Invalid Interpretation Code 5.0-9.0 [facility] Comment on above: Performed By: #### 2 [id number] #### [facility] [address] [place] [address] Protein (U) [Mass/Vol] TRACE Abnormal Negative [facility] Comment on above: Performed By: #### 2 [id number] #### [facility] [address] [place] [address] Specific gravity (U) [Rel density] 1.025 Invalid Interpretation Code 1.005-1.030 [facility] Comment on above: Performed By: #### 2 [id number] #### [facility] [address] [place] [address] Type of Urine collection method Clean Catch Normal [facility] Comment on above: Performed By: #### 2 [id number] #### [facility] [address] [place] [address] Urobilinogen Qn (U) 0.2 {Kishan'U}/dL Normal 0.0-1.0 [facility] Comment on above: Performed By: #### 2 [id number] #### [facility] [address] [place] [address] WBC Auto Ql (U) Negative Normal Negative [facility] Comment on above: Performed By: #### 2 [id number] #### [facility] [address] [place] [address] WBC LM.HPF (Urine sed) [#/Area] 0-5 Normal 0-5 [facility] Comment on above: Performed By: #### 2 [id number] #### [facility] [address] [place] [address] URINALYSISOrdered By: Parish Clifton on 01-04-2024 Bacteria LM Ql (Urine sed) Trace /HPF Normal Trace/HPF [facility] UA Auto SS Bilirubin Ql (U) 1+ *ABN* (01/04/24 4:24 PM) Invalid Interpretation Code Negative [facility] UA Auto SS Clarity (U) Clear (01/04/24 4:24 PM) Normal Clear [facility] UA Auto SS Color (U) Yellow (01/04/24 4:24 PM) Normal Yellow [facility] UA Auto SS Epithelial cells.squamous LM.HPF (Urine sed) [#/Area] 0-2 /HPF Normal 0-2/HPF [facility] UA Aut o SS Glucose Test strip (U) [Mass/Vol] Negative (01/04/24 4:24 PM) Normal Negative [facility] UA Auto SS Hemoglobin Ql (U) 3+ *ABN* (01/04/24 4:24 PM) Invalid Interpretation Code Negative [facility] UA Auto SS Ketones (U) [Mass/Vol] 1+ *ABN* (01/04/24 4:24 PM) Invalid Interpretation Code Negative [facility] UA Auto SS Bat[place].plasma/[place].R BC (Bld) [Mass ratio] 4-20 /HPF Normal 0-3/HPF [facility] Au to SS Mucus Ql (Urine sed) 1+ (01/04/24 4:24 PM) Normal [facility] UA Auto SS Nitrite Ql (U) Negative (01/04/24 4:24 PM) Normal Negative [facility] UA Auto SS pH (U) 6.0 *NA* (01/04/24 4:24 PM) Invalid Interpretation Code 5.0 - 9.0 [facility] UA Auto SS Protein (U) [Mass/Vol] Trace *ABN* (01/04/24 4:24 PM) Invalid Interpretation Code Negative [facility] UA Auto SS Specific gravity (U) [Rel density] 1.025 *NA* (01/04/24 4:24 PM) Invalid Interpretation Code 1.005 - 1.030 [facility] UA Auto SS UA Spec Desc Clean Catch (01/04/24 4:24 PM) Normal [facility] UA Auto SS Urobilinogen Qn (U) 0.8634797 {Kishan'U}/dL Normal 0.0 - 1.0 EU/dL [facility] UA Auto SS WBC Auto Ql (U) Negative (01/04/24 4:24 PM) Normal Negative [facility] UA Auto SS WBC LM.HPF (Urine sed) [#/Area] 0-5 /HPF Normal 0-5/HPF [facility] UA Auto SS XR Chest Single Viewon 01-04 XR Chest Single View Exam Date/Time: 01/04/2024 16:50 EST Reason for Exam: Shortness of breath (SOB) Report IMPRESSION: NO ACUTE CARDIOPULMONARY DISEASE. CLINICAL HISTORY: Shortness of breath (SOB) COMPARISON: April 19, 2019 FINDINGS: Osseous structures intact. Cardiopericardial silhouette normal. Pulmonary vasculature normal. Lungs clear. Ordering Provider: Daniel Espinoza FINAL REPORT Dictated: 01/04/2024 4:52 pm Holland Hassan MD Signed (Electronic Signature): 01/04/2024 4:52 pm Signed by: Holland Hassan MD Transcribed by: JASON Technologist: FRAN Technical Comments Radiation Dose: Ka,r in mGy = na DAP = na Normal [facility] eGFRon 01-04-2024 eGFR 64 mL/min/1.73 m2 Normal >=59 [facility] Comment on above: Order Comment: Order added by Discern Expert. Performed By: #### 1 [id number], [id number], [id number], [id number], [id number] #### [facility] [address] [place] [address] Consent for Procedure/Surger yon 01-01-2024 Consent for Procedure/Surgery [id number]. 00TIFF [facility] Consent for Treatmenton 12-20 Consent for Treatment [id number] 0TIFF [facility] IntraOperative Documentson 0 01-01-2024 IntraOperative Documents [id number]. 00TIFF [facility] Main OR Intraoperative Recor don 01-01-2024 Main OR Intraoperative Record IntraOp Document Type [facility] Summary Primary Physician: Nadir GARCÍA MD Finalized Date/Time: 01/01/24 10:40:42 Pt. Name: STEVE WILLIAMSON/Sex: 1965 Male Med Rec #: [id number] Physician: Nadir GARCÍA MD Financial #: [id number] Pt. Type: O Room/Bed: / Admit/Disch: 01/01/24 09:21:31 - Institution: Case Times FT[facility]O Entry 1 Patient Times In Room 01/01/24 10:24:00 Out Room 01/01/24 10:46:00 Procedure Times Start 01/01/24 10:27:00 Stop 01/01/24 10:41:00 Anesthesia Times Last Modified By: JOSEPH Villafuerte RN, Ruthann 01/01/24 10:40:17 Case Attendance FT[facility]O Entry 1 Entry 2 Entry 3 Case Attendee RICKY LEVIN, Nadir Villafuerte RN, BILLIEOR, Aleksander TAVERAS, Teena Joya Role Performed Surgeon - Primary Clinical Research Scientist - Primary Scrub - Primary Time In 01/01/24 10:24:00 01/01/24 10:24:00 01/01/24 10:24:00 Time Out 01/01/24 10:46:00 01/01/24 10:46:00 01/01/24 10:46:00 Procedure PROSTATE TRANSRECTAL PROSTATE TRANSRECTAL PROSTATE TRANSRECTAL ULTRASOUND WITH BIO(.) ULTRASOUND WITH BIO(.) ULTRASOUND WITH BIO(.) Comments Last Modified By: Noy TEE, BILLIEOR, Noy TEE, JOSEPH, Noy TEE, JOSEPH, Mahnaz 01/01/24 Mahnaz 01/01/24 Mahnaz 01/01/24 10:40:18 10:40:18 10:40:18 Surgical Procedures FT[facility]O Entry 1 Procedure Description Procedure PROSTATE TRANSRECTAL Modifiers . ULTRASOUND WITH BIOPSY Surgeon Description TRUS BIOPSY Primary Procedure Yes Primary Surgeon Nadir GARCÍA MD Start 01/01/24 10:27:00 Stop 01/01/24 10:41:00 Anesthesia Type Local Surgical Service Urology Wound Class 2 - Clean-Contaminated Last Modified By: JOSEPH Villafuerte RN, Ruthann 01/01/24 10:40:19 General Case Data FT[facility]O Pre-Care Text: Classifies surgical wound, implements aseptic technique, initiates traffic control Entry 1 Case Information OR URO 1 FT Case Level None Wound Class 2 - Clean-Contaminated Specialty Urology Preop Diagnosis ELEVATED PSA Postop Same As Preop Yes Postop Diagnosis ELEVATED PSA Outcomes Met? Yes Last Modified By: JOSEPH Villafuerte RN, Ruthann 01/01/24 10:27:47 Post-Care Text: The patient is free from signs and symptoms of infection EU IntraOp - FT[facility] Pre-Care Text: Implements protective measures prior to operative or invasive procedure, confirms identity before the operative or invasive procedure, verifies operative procedure, surgical site, and laterality Entry 1 EU Perioperative Protocols Procedure(s) PROSTATE TRANSRECTAL Patient Identity Birthday, ID Band ULTRASOUND WITH BIO(.) Verified (select at Check, Patient least 2): Participation Consents / H and P HandP, Surgery/Procedure Operative Site N/A Verified Consent Marking Verified Surgical Site Yes Laterality Verified n/a Verified Procedure Verified Yes Correct Patient Yes Position Verified Availability Equipment, Medication Time Out Nadir GARCÍA MD, Verified (If Participants BILLIE Villafuerte RNOR, Applicable) Aleksander Joya CST, Kimberly A Time Out Complete 01/01/24 10:26:00 Allergies Reviewed? Yes Allergies Reviewed Self/Patient With Body Position Lateral, right side up Prep Area none Prep Agents None Skin. Condition Unable to Visualize Additional Tissue Specimens Collected Vitals - EU Blood Pressure 133/83 Pulse 63 bpm Respirations 16 br/min SPO2 96 % EBL 0 IandO - EU Total Intake 0 Total Output 0 Outcomes Met? Yes Last Modified By: JOSEPH Villafuerte RN, Ruthann 01/01/24 10:40:27 Post-Care Text: The patient is free from signs and symptoms of injury caused by extraneous objects Sign Out [facility] Entry 1 Before Patient Leaves OR Nurse verbally Yes Nurse verbally n/a confirms with the confirms with the team the name of team that the procedure(s) instrument, sponge, recorded and needle counts are correct (or N/A) Nurse verbally Yes Nurse verbally n/a confirms with the confirms with the team how the team whether there specimen is labeled are any equipment (including patient problems to be name), if applicable addressed Sign Out Complete 01/01/24 10:45:00 Last Modified By: JOSEPH Villafuerte RN, Ruthann 01/01/24 10:40:40 Case Comments Finalized By: JOSEPH Villafuerte RN, Ruthann Document Signatures Signed By: JOSEPH Villafuerte RN, Ruthann 01/01/24 10:40 [facility] Main OR Preoperative Recordo n 01-01-2024 Main OR Preoperative Record Holding Area Document Type FT[facility] Summary Primary Physician: Nadir GARCÍA MD Finalized Date/Time: 01/01/24 10:31:15 Pt. Name: STEVE WILLIAMSON.O.B./Sex: 1965 Male Med Rec #: [id number] Physician: Nadir GARCÍA MD Financial #: [id number] Pt. Type: O Room/Bed: / Admit/Disch: 01/01/24 09:21:31 - Institution: Case Times Holding FT[facility]O Pre-Care Text: Verifies consent for planned procedure, identifies individual values and wishes concerning care, includes family members in perioperative teaching Secures patient's records' belongings, and valuables, maintains patient's dignity and privacy, and maintains patient confidentiality Entry 1 In Holding 01/01/24 09:58:00 Outcomes Met? Yes Last Modified By: Johana Casas LPN 01/01/24 09:58:56 Post-Care Text: The patient participates in decisions affecting his or her perioperative plan of care The patient's right to privacy is maintained Surgery Checklist FT[facility]O Entry 1 Patient Birthday, ID Band Check Procedure History and Physical Identification: Verification: NPO after Midnight: No Limitations: up ad lang Complaints of Pain: No Skin Integrity Intact, Rosebud, Warm, & Dry Vitals - EU Blood Pressure 133/83 Pulse 63 bpm Respirations 18 br/min SPO2 96 % RN Reviewed Yes Last Modified By: JOSEPH Villafuerte RN, Ruthann 01/01/24 10:31:13 Finalized By: JOSEPH Villafuerte RN, Ruthann Document Signatures Signed By: Johana Casas LPN 01/01/24 10:05 JOSEPH Villafuerte RN, Ruthann 01/01/24 10:31 Normal [facility] Operative Reporton Operative Report Patient: STEVE WILLIAMSON Age: 58 years Sex: Male : 1965 Associated Diagnoses: None Author: Nadir GARCÍA MD Procedure Operative Information Details: Date/ Time: 01/01/2024 10:43:00. Pre-Op Dx: Elevated PSA - R97.20. Post-Op Dx: Same. Anesthesia Type: Local, Periprostatic Nerve Block. Procedure: Transrectal Ultrasound and Transrectal Ultrasound-Guided Biopsy of the Prostate. Complications: None. Risks/Benefits/Informe d Consent: Surgical risks, benefits, details of the procedure have been explained to the patient, Full informed consent has been obtained. Intraoperative Information Prepped: The patient was brought to the office suite, placed in the modified left lateral Coronado position, The patient was draped appropriately, 80 mg Gentamicin IM injection administered. Procedure: Then 2% Xylocaine jelly was used for intrarectal anesthesia, After waiting several minutes, a well lubricated ultrasound probe was introduced per rectum, The prostate was carefully evaluated in the AP and Sagittal views. Volume: 52 CC. Specimens Removed: A total of 12 biopsies were taken, 6 from each side, and sent to pathology. Devices Implanted: None. Postoperative Information Discharge: The patient tolerated the procedure well and was discharged home in satisfactory condition, The patient was instructed to (Finish antibiotics, Avoid strenuous activity, Go to the emergency room for gross bleeding, fever, or chills). Radiology Report Procedure: Transrectal Ultrasound of the Prostate, Transrectal US guided needle biopsy of the prostate. Narrative: Ultrasound probe is introduced and performed in the longitudinal and transverse plains, The gland measures (51 MM Length, 53 MM Width, 37 MM Depth, with a calculated volume of 52 CC), The prostatic capsule and seminal vesicles appear to be within normal limits, The peripheral zone demonstrates No abnormalities, Rest of the prostate demonstrates No abnormalities, Ultrasound guidance was then utilized to obtain 12 biopsies, These were sent to pathology for evaluation. Normal [facility] Comment on above: Result Comment: Elec tronically Signed By: RICKY LEVIN, Nadir Mercado\.gerhard\Date and Time Signed: 01/01/24 10:44 EST Patient Educationon 01-01-20 Patient Education Custom Transrectal Ultrasound of the Prostate with US guided biopsy ? Even though there are no visible incisions, multiple prostate biopsies have been taken through the rectum and you need to follow some instructions to minimize the risks of bleeding. ? You may see some blood in your urine and stool for up to 1 week (and blood in the semen for several months) ? Diet -You may resume your normal diet, but you may want to avoid alcohol, carbonated drinks, caffeine, and spicy foods, which may increase the irritation from the surgery. -Drink plenty of water to keep the urine clear. ? Activity -You should limit any physical activity for about 48 hours -No heavy lifting or straining (10 pound limit) -No driving a car and limit long car rides for 2 days -No strenuous exercise -No sexual intercourse until this is discussed with your doctor ? Bowels -Try to keep your bowel movements soft to minimize straining to have a bowel movement. -You may use a stool softener or over the counter laxative if needed -Difficult bowel movement may lead to straining and bleeding from the prostate ? Medications -You may resume your home medications unless instructed otherwise -Hold aspirin, ibuprofen, Coumadin (warfarin) and other blood thinners for about two days or until there is no active bleeding unless otherwise instructed -Finish the antibiotic which you have already started ? Things to watch for which would require an Emergency Room visit or call 911: (this is not a complete list) -Persistent or heavy bleeding or blood clots from the rectum or in the urine -Inability to urinate -Fever over 101.5 degrees Fahrenheit, with or without chills -Severe drug reactions with itching, hives or rash -Tenderness or swelling of the calves, chest pain, or shortness of breath ? Please call the office to arrange for your post-operative appointment in 1-2 weeks [phone] or [phone] Normal [facility] Prostate Histology ([facility]) on 01-01-2024 PH Method of Extraction Needle Biopsy Normal [facility] Comment on above: Performed By: #### 1 [id number] ####[facility] [address] [place] [address] PH Number of Jars 2 Invalid Interpretation Code [facility] Comment on above: Performed By: #### 1 [id number] ####[facility] [address] [place] [address] PH Specimen 1 L Base Prostate Normal [facility] Comment on above: Performed By: #### 1 [id number] ####[facility] [address] [place] [address] PH Specimen 10 R Lat Bse Prost Normal [facility] Comment on above: Performed By: #### 1 [id number] ####[facility] [address] [place] [address] PH Specimen 11 R Lat Mid Prost Normal [facility] Comment on above: Performed By: #### 1 [id number] ####[facility] [address] [place] [address] PH Specimen 12 R Lat Apx Prost Normal [facility] Comment on above: Performed By: #### 1 [id number] ####[facility] [address] [place] [address] PH Specimen 2 L Mid Prostate Normal [facility] Comment on above: Performed By: #### 1 [id number] ####[facility] [address] [place] [address] PH Specimen 3 L Apx Prostate Normal [facility] Comment on above: Performed By: #### 1 [id number] ####[facility] [address] [place] [address] PH Specimen 4 L Lat Bse Prost Normal [facility] Comment on above: Performed By: #### 1 [id number] ####[facility] [address] [place] [address] PH Specimen 5 L Lat Mid Prost Normal [facility] Comment on above: Performed By: #### 1 [id number] ####[facility] [address] [place] [address] PH Specimen 6 L Lat Apx Prost Normal [facility] Comment on above: Performed By: #### 1 [id number] ####[facility] [address] [place] [address] PH Specimen 7 R Base Prostate Normal [facility] Comment on above: Performed By: #### 1 [id number] ####[facility] [address] [place] [address] PH Specimen 8 R Mid Prostate Normal [facility] Comment on above: Performed By: #### 1 [id number] ####[facility] [address] [place] [address] PH Specimen 9 R Apx Prostate Normal [facility] Comment on above: Performed By: #### 1 [id number] ####[facility] [address] [place] [address] PH Type of Service Technical Only Normal [facility] Comment on above: Performed By: #### 1 [id number] ####[facility] [address] [place] [address] Physician Referralon 024 Physician Referral [id number] 0TIFF Normal [facility] Ambulatory Visit Summaryon 0 12-10-2023 Ambulatory Visit Summary STEVE WILLIAMSON :1965 Visit Date:12/10/2023 Ambulatory Visit Instructions Your Diagnosis BPH with urinary obstruction Elevated PSA Tests Performed Urnls Dip Stick Auto w/o Microscopy POC 38886 Your Care Team Attending Physician - Nadir GARCÍA MD Primary Care Physician - DELPHINE BERRY NP Referring Physician - DELPHINE BERRY NP This Is Your Medications List alfuzosin (alfuzosin 10 mg ER Tab) diazepam (Valium 10 mg Tab) Contact prescribing physician if questions or concerns latanoprost ophthalmic (latanoprost Opth 0.005% Kena) rosuvastatin (rosuvastatin 20 mg Tab) Procedures Performed Colonoscopy (10/26/2023), Arthroscopy of knee (05/07/2019), ANKLE FRACTURE. Discharge Vitals Heart Rate (Peripheral) 62 Respiratory Rate 16 Blood Pressure 125/79 Height 178 cm Height 70 in Weight 82 kg Weight 180.4 lb BMI 25.88 What to do next Scheduled Follow-Up Appointments Sunday. 2023 11:00 AM EST With: Nadir GARCÍA MD Where: [facility] [place] Normal [facility] Patient Educationon 12-10-19 24 Patient Education Urology Benign Prostatic Hyperplasia Benign prostatic hyperplasia (BPH) is an enlarged prostate gland that is caused by the normal aging process. The prostate may get bigger as a man gets older. The condition is not caused by cancer. The prostate is a walnut-sized gland that is involved in the production of semen. It is located in front of the rectum and below the bladder. The bladder stores urine. The urethra carries stored urine out of the body. An enlarged prostate can press on the urethra. This can make it harder to pass urine. The buildup of urine in the bladder can cause infection. Back pressure and infection may progress to bladder damage and kidney (renal) failure. What are the causes? This condition is part of the normal aging process. However, not all men develop problems from this condition. If the prostate enlarges away from the urethra, urine flow will not be blocked. If it enlarges toward the urethra and compresses it, there will be problems passing urine. What increases the risk? This condition is more likely to develop in men older than 50 years. What are the signs or symptoms? Symptoms of this condition include: ? Getting up often during the night to urinate. ? Needing to urinate frequently during the day. ? Difficulty starting urine flow. ? Decrease in size and strength of your urine stream. ? Leaking (dribbling) after urinating. ? Inability to pass urine. This needs immediate treatment. ? Inability to completely empty your bladder. ? Pain when you pass urine. This is more common if there is also an infection. ? Urinary tract infection (UTI). How is this diagnosed? This condition is diagnosed based on your medical history, a physical exam, and your symptoms. Tests will also be done, such as: ? A post-void bladder scan. This measures any amount of urine that may remain in your bladder after you finish urinating. ? A digital rectal exam. In a rectal exam, your health care provider checks your prostate by putting a lubricated, gloved finger into your rectum to feel the back of your prostate gland. This exam detects the size of your gland and any abnormal lumps or growths. ? An exam of your urine (urinalysis). ? A prostate specific antigen (PSA) screening. This is a blood test used to screen for prostate cancer. ? An ultrasound. This test uses sound waves to electronically produce a picture of your prostate gland. Your health care provider may refer you to a specialist in kidney and prostate diseases (urologist). How is this treated? Once symptoms begin, your health care provider will monitor your condition (active surveillance or watchful waiting). Treatment for this condition will depend on the severity of your condition. Treatment may include: ? Observation and yearly exams. This may be the only treatment needed if your condition and symptoms are mild. ? Medicines to relieve your symptoms, including: ? Medicines to shrink the prostate. ? Medicines to relax the muscle of the prostate. ? Surgery in severe cases. Surgery may include: ? Prostatectomy. In this procedure, the prostate tissue is removed completely through an open incision or with a laparoscope or robotics. ? Transurethral resection of the prostate (TURP). In this procedure, a tool is inserted through the opening at the tip of the penis (urethra). It is used to cut away tissue of the inner core of the prostate. The pieces are removed through the same opening of the penis. This removes the blockage. ? Transurethral incision (TUIP). In this procedure, small cuts are made in the prostate. This lessens the prostate's pressure on the urethra. ? Transurethral microwave thermotherapy (TUMT). This procedure uses microwaves to create heat. The heat destroys and removes a small amount of prostate tissue. ? Transurethral needle ablation (TUNA). This procedure uses radio frequencies to destroy and remove a small amount of prostate tissue. ? Interstitial laser coagulation (ILC). This procedure uses a laser to destroy and remove a small amount of prostate tissue. ? Transurethral electrovaporization (TUVP). This procedure uses electrodes to destroy and remove a small amount of prostate tissue. ? Prostatic urethral lift. This procedure inserts an implant to push the lobes of the prostate away from the urethra. Follow these instructions at home: ? Take aqff-fga-jrzzvdy and prescription medicines only as told by your health care provider. ? Monitor your symptoms for any changes. Contact your health care provider with any changes. ? Avoid drinking large amounts of liquid before going to bed or out in public. ? Avoid or reduce how much caffeine or alcohol you drink. ? Give yourself time when you urinate. ? Keep all follow-up visits. This is important. Contact a health care provider if: ? You have unexplained back pain. ? Your symptoms do not get better with treatment. ? You develop side effects from the medicine (more content not included)... Normal [facility] IntraOperative Documentson 1 01-15-2023 IntraOperative Documents [id number]. 00TIFF Normal [facility] Postoperative Documentson Postoperative Documents [id number] 0TIFF [facility] Reminderson 11-05-2023 Reminders - From: Fam [facility] To: [facility] - Reminders/Recalls; Sent: 11/05/2023 10:35:03 EST Show up: 09/19/2026 10:34:00 EST Subject: Ambulatory Reminder Due Date/Time: 10/26/2026 10:34:00 EST Reminder/Recall Repeat colonoscopy in 3 years(2025) due to tubular adeoma Normal [facility] Result Letter Officeon 11-05 Result Letter Office November 05, 2023 STEVE WILLIAMSON [id number] [address] : 1965 Below is a summary of the results of your recent colonoscopy. Your results have been sent to your primary care provider along with recommendations on when the procedure should be repeated. COLONOSCOPY WITH POLYP REMOVAL OR BIOPSY Type of polyp tubular adenoma - not cancer but can become cancer if not removed. Additional colonoscopies will be necessary to monitor your condition and assure that new polyps have not developed. Based on your results we are recommending you repeat the procedure in 3 years You will be placed in our reminder system and will receive a reminder letter prior to your next due date. [facility] [phone] [facility] [place] Main OR Intraoperative Recor don 10-30-2023 Main OR Intraoperative Record IntraOp Document Type FT Summary Primary Physician: Cristóbal Lowe MD Finalized Date/Time: 10/30/23 13:16:26 Pt. Name: STEVE WILLIAMSON/Sex: 1965 Male Med Rec #: [id number] Physician: Cristóbal Lowe MD Financial #: [id number] Pt. Type: O Room/Bed: / Admit/Disch: 10/26/23 09:08:34 - 10/26/23 23:59:59 Institution: Case Times FT Entry 1 Patient Times In Room 10/26/23 10:09:00 Out Room 10/26/23 10:27:00 Procedure Times Start 10/26/23 10:13:00 Stop 10/26/23 10:24:00 Anesthesia Times Start 10/26/23 10:09:00 Stop 10/26/23 10:27:00 Time at Cecum 10/26/23 10:18:00 Last Modified By: Maxwell RN, Pati F 10/26/23 10:25:31 General Comments: 10/30/23 Chart opened to review and send charges LRoth CSFA Case Attendance FT Entry 1 Entry 2 Entry 3 Case Attendee New WICK, Louis Arreola RN, Judy Padron Role Performed Anesthesiologist Clinical Research Scientist - Primary Scrub - Primary Upholstery Auto Trimmer Time In 10/26/23 10:09:00 10/26/23 10:09:00 10/26/23 10:09:00 Time Out 10/26/23 10:27:00 10/26/23 10:27:00 10/26/23 10:27:00 Procedure COLONOSCOPY(.) COLONOSCOPY(.) COLONOSCOPY(.) Comments Dr. Ibarra supervising case Last Modified By: Maxwell RN, Pati Arreola RN, Pati Arreola RN, Pati F 10/26/23 10:28:13 F 10/26/23 10:28:13 F 10/26/23 10:28:13 Entry 4 Entry 5 Case Attendee Elidia Espinal MD, Cristóbal Winkler Role Performed Staff - Other Surgeon - Primary Time In 10/26/23 10:09:00 10/26/23 10:09:00 Time Out 10/26/23 10:27:00 10/26/23 10:27:00 Procedure COLONOSCOPY(.) COLONOSCOPY(.) Comments help in room Last Modified By: Maxwell RN, Pati Arreola RN, Pati F 10/26/23 10:28:13 F 10/26/23 10:28:13 Perioperative Protocols FT Pre-Care Text: Implements protective measures prior to operative or invasive procedure, confirms identity before the operative or invasive procedure, verifies operative procedure, surgical site, and laterality Entry 1 Procedure(s) COLONOSCOPY(.) Patient Identity Birthday, ID Band Verified (select at Check, Patient least 2): Participation Consents / H and P Anesthesia Consent, Operative Site N/A Verified HandP, Surgery/Procedure Marking Verified Consent Surgical Site No Laterality Verified n/a Verified Procedure Verified Yes Correct Patient Yes Position Verified Availability Equipment, Medication Prep Dry n/a Verified (If Applicable) PreOp Antibiotic No Time Out Louis Ramírez Given Participants Maxwell Murphy RN, Pati , Judy Goddard Sparks, Micala E, Mynor LEVIN, Cristóbal Winkler Time Out Complete 10/26/23 10:10:00 Outcomes Met? Yes Last Modified By: Pati Arreola RN 10/26/23 10:11:44 Post-Care Text: The patient is free from signs and symptoms of injury caused by extraneous objects Allergy Information FT Pre-Care Text: Verifies allergies Entry 1 Allergies Reviewed? Yes Allergies Reviewed Self/Patient With Outcomes Met? Yes Last Modified By: Pati Arreola RN 10/26/23 10:11:50 Post-Care Text: The patient received appropriate medication(s) safely administered during the perioperative period Surgical Procedures FT Entry 1 Procedure Description Procedure COLONOSCOPY Modifiers . Surgeon Description Colonoscopy with transverse colon polypectomy. Primary Procedure Yes Primary Surgeon Mynor LEVIN, Cristóbal Winkler Start 10/26/23 10:13:00 Stop 10/26/23 10:24:00 Anesthesia Type General Surgical Service Gastroenterology Wound Class 2 - Clean-Contaminated Last Modified By: Pati Arreola RN 10/26/23 10:25:06 General Case Data FT Pre-Care Text: Classifies surgical wound, implements aseptic technique, initiates traffic control Entry 1 Case Information OR ENDO 1 FT Case Level Level 2 Wound Class 2 - Clean-Contaminated Specialty Gastroenterology ASA Class 2 Preop Diagnosis Screening Postop Same As Preop No Postop Diagnosis Diverticulosis, Outcomes Met? Yes transverse colon polyp, large internal hemorrhoids Last Modified By: Pati Arreola RN 10/26/23 10:25:03 Post-Care Text: The patient is free from signs and symptoms of infection Skin Assessment (Pre Procedure) FT Pre-Care Text: Implements protective measures to prevent skin/ tissue injury due to thermal or mechanical sources Evaluates for signs and symptoms of physical injury to skin and tissue Entry 1 Skin Integrity Intact, Rosebud, Warm, and Skin Abnormality No Dry Outcomes Met? Yes Last Modified By: Pati Arreola RN 10/26/23 10:12:12 Post-Care Text: The patient is free from signs and symptoms of injury caused by extraneous objects Patient Positioning FT Pre-Care Text: Identifies physical alterations that require additional precautions for procedure-specific positioning, verifies presence of prosthetics or corrective devices, positions the patient, evaluates the p (more content not included)... Normal [facility] Consenton 10-29-2023 Consent [id number]. 00TIFF Normal [facility] Discharge Instructionson Discharge Instructions [id number]. 00TIFF Normal [facility] Progress Note-Physicianon Progress Note-Physician Patient: STEVE WILLIAMSON Age: 58 years Sex: Male : 1965 Associated Diagnoses: None Author: Marvel Ibarra Jr, DO Preoperative Information Anesthesia Preop Info: Time patient last ate or drank 10/26/2023 00:00:00. Anesthesia history: Patient history: None. Family history+: None. Informed consent: Signed by patient. Re-evaluation prior to induction: Initial evaluation reviewed: No significant change. Review of Systems Eye: Negative except as documented in history of present illness. Ear/Nose/Mouth/Throat: Negative except as documented in history of present illness. Respiratory: Negative except as documented in history of present illness. Cardiovascular: Negative except as documented in history of present illness. Musculoskeletal: Negative except as documented in history of present illness. Neurologic: Negative except as documented in history of present illness. Health Status Allergies: Allergic Reactions (Selected) Severity Not Documented Penicillins- Unknown and allergy, unspecified, not elsewhere classified. Problem list: All Problems Screen for colon cancer / SNOMED CT 986506023 / Confirmed Knee pain, left / SNOMED CT 40414058 / Confirmed High cholesterol / SNOMED CT 61927671 / Confirmed High cholesterol / SNOMED CT 73119793 / Confirmed Acute glaucoma / SNOMED CT 24932072 / Confirmed Resolved: Plantar fasciitis / SNOMED CT 711429218 RIGHT FOOT Histories Procedure history: Arthroscopy of knee ([id number]) on 05/07/2019 at 54 Years. Comments: 05/07/2019 13:06 HORTENSIA Tobias RN, Bernice Morton Left knee ANKLE FRACTURE. Comments: 03/07/2013 12:53 HORTENSIA Ha RN, Lyubov LEFT ANKLE ORIF Social History Social & Psychosocial Habits Alcohol 08/28/2023 Use: Current Type: Beer Frequency: 1-2 times per week Average drinks per episode in last year: 1 Maximum drinks per episode in last year: 2.00 Started at age: 20 Years Previous treatment: None Has alcohol use interfered with work or home life? No Do you ever drink more than intended? No Has anyone been hurt or at risk by your drinking? No Ready to change: No Concerns about alcohol use in household: No 08/28/2023 Risk Assessment: Denies Alcohol Use Substance Abuse 08/28/2023 Risk Assessment: Denies Substance Abuse Tobacco 08/28/2023 Risk Assessment: Denies Tobacco Use 08/28/2023 Tobacco Use: Never (less than 100 in l Smokeless tobacco use: Never . Physical Examination Airway: Mallampati classification: II (soft palate, fauces, uvula visible). Respiratory: adequate air exchange. Cardiovascular: Regular rhythm. Plan [place] [employer] (ASA) physical status classification: Class II. Anesthetic Preoperative Plan: Anesthesia General. [facility] Comment on above: Result Comment: Elec tronically Signed By: Marvel Ibarra Jr, DO\.br\Date and Time Signed: 10/28/23 10:10 EST Progress Note-Physician Patient: STEVE WILLIAMSON Age: 58 years Sex: Male : 1965 Associated Diagnoses: None Author: Marvel Ibarra Jr, DO Postoperative Information Postoperative disposition: Postoperative disposition: To PACU. Optimetrix number: Optimetrix number [id number]. Anesthetic utilized: General. Health Status Allergies: Allergic Reactions (Selected) Severity Not Documented Penicillins- Unknown and allergy, unspecified, not elsewhere classified. Physical Examination Vital Signs 10/26/2023 10:55 EST Heart Rate Monitored 58 bpm LOW Respiratory Rate Monitored 16 br/min Systolic Blood Pressure 119 mmHg Diastolic Blood Pressure 81 mmHg SpO2 94 % 10/26/2023 10:40 EST Heart Rate Monitored 58 bpm LOW Respiratory Rate Monitored 16 br/min Systolic Blood Pressure 108 mmHg Diastolic Blood Pressure 75 mmHg SpO2 94 % 10/26/2023 10:35 EST Heart Rate Monitored 67 bpm Respiratory Rate Monitored 16 br/min Systolic Blood Pressure 109 mmHg Diastolic Blood Pressure 74 mmHg SpO2 94 % 10/26/2023 10:30 EST Temperature Temporal Artery 36.2 DegC LOW Heart Rate Monitored 68 bpm Respiratory Rate Monitored 16 br/min Systolic Blood Pressure 111 mmHg Diastolic Blood Pressure 72 mmHg SpO2 94 % Pain Assessment: Controlled. General: Awake, Alert, Appropriate. Respiratory: Adequate air exchange. Cardiovascular: Stable, Normal peripheral perfusion. Neurological: Normal sensory function, Normal motor function. Assessment Anesthetic outcome No anesthetic complications noted. Adequate pain relief. able to void without difficulty, able to ambulate with assist, tolerating PO intake, no N/V. Review / Management Condition: Stable. Plan Transfer/Discharge: Transfer/Discharge Discharge when meets criteria ( To home ). [facility] Comment on above: Result Comment: Elec tronically Signed By: Fred Kaur DO, Marvel Morton\.br\Date and Time Signed: 10/28/23 10:09 EST Consent for Treatmenton Consent for Treatment [id number] 0TIFF [facility] Discharge Instructionson Discharge Instructions STEVE WILLIAMSON :1965 Visit Date:10/26/2023 Inpatient Discharge Instructions Your Care Team Admitting Physician - Cristóbal Lowe MD Referring Physician - Cristóbal Lowe MD Reason for Your Visit SCREENING Your Diagnosis Colon cancer screening Tests Performed Pathology Tissue Exam -- Results Pending -- Please visit your patient portal for your results or contact your primary care physician. This Is Your Medications List acetaminophen (Tylenol 325 mg Tab) acetaminophen-hydrocod one ([place] 325 mg-5 mg oral tablet) ascorbic acid (Vitamin C) aspirin (Ecotrin 325 mg Tab-EC) calcium carbonate (calcium (as carbonate) 600 mg oral tablet) epinephrine ibuprofen latanoprost ophthalmic (latanoprost Opth 0.005% Kena) multivitamin with minerals (Celebrate Multivitamin oral capsule) predniSONE (predniSONE 20 mg Tab) rosuvastatin (rosuvastatin 20 mg Tab) Procedure History Arthroscopy of knee (05/07/2019), ANKLE FRACTURE. Discharge Vitals Temperature (Temporal Artery) 36.2 ?C Heart Rate (Monitored) 68 Respiratory Rate 16 Blood Pressure 111/72 Height 175.2 cm Weight 82.7 kg BMI 26.94 What to do next Instructions From Your Doctor Event Name Event Result Discharge Activity Resume normal activities in 24 hours Discharge Restrictions No driving for 24 hrs Discharge Diet(s) Regular Call Your Doctor For Persistent or heavy bleeding Pharmacy Information [facility] Mail Order Discharge Instructions Discharge Instructions Previously Scheduled Follow-Up Appointments Sunday 11:00 AM EST With: RICKY LEVIN, Nadir Mercado Where: [facility] Comment on above: Result Comment: Elec tronically Signed By: Kelly TEE, Sarah\.br\Date and Time Signed: 10/26/23 10:36 EST Endoscopic Procedure Report - Otheron 10-26-2023 Endoscopic Procedure Report - Other Patient: STEVE WILLIAMSON Age: 58 years Sex: Male : 1965 Associated Diagnoses: None Author: Cristóbal Lowe MD Pre-Procedure Procedure Date 10/26/2023 10:26:00 . Procedure Type: Colonoscopy with removal of tumor(s), polyp(s), or other lesion(s) by cold snare technique. Procedure provider Performed by Cristóbal Lowe MD. Current history and physical Documented on chart. Colorectal neoplasm risk assessment Average risk. Informed Consent After discussing the rationale, risks and benefits, and alternatives to this procedure, the patient provided signed consent for the procedure. Pre-procedure diagnosis: Screening. ASA Classification: Class II. . Monitoring: See anesthesia record. . Procedure The procedure was performed in the hospital. See anesthesia record for sedation given during procedure. The patient was positioned starting in the left lateral decubitus position. Endoscope type used was an adult-size. The endoscope was lubricated then introduced through the anus. The scope was advanced to the terminal ileum. No difficulties encountered during the procedure. The bowel preparation quality was adequate (see polyps greater than or equal to 6 millimeters). The patient tolerated the procedure well. Time to Cecum: 5 min Withdrawal time 6 min Last colonoscopy: none Findings 1. Large internal hemorrhoids 2. 1 cm sessile polyp in the transverse colon, resected with cold snare completely and retrieved 3. Normal Terminal ileum Post-Procedure Complications: none. Estimated blood loss: Minimal. Specimens: sent to pathology. Devices/ implants: none left in place. Impression and Plan 1. Large internal hemorrhoids 2. 1 cm sessile polyp in the transverse colon, resected with cold snare completely and retrieved 3. Normal Terminal ileum Recommendations: Repeat colonoscopy:: In 3 years. Follow-up:: in clinic for 1-2 weeks when pathology is available. Diet:: Previous. Medication resumption:: Continue current medications, Avoid NSAIDs. Return to activities:: After 24 hours. Education and Follow-up: Counseled: Patient, Family. Normal [facility] Comment on above: Result Comment: Elec tronically Signed By: Mynor LEVIN, Cristóbal Winkler\.br\Date and Time Signed: 10/26/23 10:32 EST Inpatient Patient Summaryon 10-26-2023 Inpatient Patient Summary [place] [id number] [facility] Clinical Discharge Instructions PERSON INFORMATION Name: STEVE WILLIAMSON PHYSICIANS Admitting Physician: Cristóbal Lowe MD Attending Physician: Cristóbal Lowe MD PCP: KRISTI MENA, [facility] Discharge Diagnosis: Colon cancer screening Comment: PATIENT EDUCATION INFORMATION Instructions: Colonoscopy, Care After Surgery Salam (CUSTOM); Diverticulosis MAGR (CUSTOM); Hemorrhoids; Colon Polyps Medication Leaflets: Follow up: With: Address: When: Cristóbal Lowe [address] [place] [address], [facility] [[email or web address]] [address], [place] [phone] Business (1) Comments: office will calll for follow up Type Location Start Finish State URO New Patient [facility] [place] 12/10/2023 11:00 AM 12/10/2023 11:15 AM Confirmed MEDICATION LIST Medications to Continue with No Changes Other Medications acetaminophen (Tylenol 325 mg Tab) 2 Tablets By Mouth as needed as needed for pain. acetaminophen-hydrocod one ([place] 325 mg-5 mg oral tablet) 1 - 2 po q4-6h prn pain Dx: M67.52 Duration: 7 days; as needed for pain. Refills: 0. ascorbic acid (Vitamin C) 500 Milligram By Mouth every day. aspirin (Ecotrin 325 mg Tab-EC) 1 Tablets By Mouth every day. Refills: 0. calcium carbonate (calcium (as carbonate) 600 mg oral tablet) 1 Tablets By Mouth every day. epinephrine Subcutaneous as needed Anaphylaxis. ibuprofen 400 Milligram By Mouth every 6 hours as needed as needed for pain. latanoprost ophthalmic (latanoprost Opth 0.005% Kena) 1 Drops Ophthalmic once a day (at bedtime)., glaucoma multivitamin with minerals (Celebrate Multivitamin oral capsule) 1 Capsules By Mouth every day. predniSONE (predniSONE 20 mg Tab) 2 Tablets By Mouth every day for 5 Days. Refills: 0. rosuvastatin (rosuvastatin 20 mg Tab) 1 Tablets By Mouth every day. Comment: Normal [facility] Main OR PACU I Recordon 12-0 Main OR PACU I Record PACU Phase I Docum ent Type FT Summary Primary Physician: Cristóbal Lowe MD Finalized Date/Time: 10/26/23 12:44:34 Pt. Name: STEVE WILLIAMSON Selene Perrin/Sex: 1965 Male Med Rec #: [id number] Physician: Cristóbal Lowe MD Financial #: [id number] Pt. Type: O Room/Bed: / Admit/Disch: 10/26/23 09:08:34 - Institution: Case Times PACU I FT Pre-Care Text: Identifies barriers to communication and implements measures to provide psychological support Develops individualized plan of care, and ensures continuity of care Maintains patient's dignity and privacy, and maintains patient confidentiality Identifies and reports philosophical, cultural, and spiritual beliefs and values Identifies individual values and wishes concerning care Implements aseptic technique, and administers prescribed antibiotic therapy and immunizing agents as ordered Evaluates postoperative tissue perfusion Implements thermoregulation measures, and monitors body temperature Evaluates postoperative respiratory status Evaluates postoperative cardiac status Evaluates postoperative neurological status Assesses pain control, collaborated in initiating patient-controlled analgesia and implements alternative methods of pain control Verifies allergies, administers prescribed medications and solutions, evaluates response to medications Entry 1 In PACU I 10/26/23 10:30:00 Discharge from PACU 10/26/23 11:00:00 I Outcomes Met? Yes Last Modified By: Sarah Mendoza RN 10/26/23 12:43:57 Post-Care Text: The patient demonstrates knowledge of the expected response to the operative or invasive procedure The patient's care is consistent with the individualized perioperative plan of care The patient's right to privacy is maintained The patient's value system, lifestyle, ethnicity, and culture are considered, respected, and incorporated into the perioperative plan of care The patient participates in decisions affecting his or her perioperative plan of care The patient is free from signs and symptoms of infection The patient has wound/tissue perfusion consistent with or improved from baseline levels established preoperatively The patient is at or returning to normothermia at the conclusion of the immediate postoperative period The patient's respiratory function is consistent with or improved from baseline levels established preoperatively The patient's cardiovascular status is consistent with or improved from baseline levels established preoperatively The patient's cardiovascular status is consistent with or improved from baseline levels established preoperatively The patient demonstrates and/or reports adequate pain control throughout the perioperative period The patient received appropriate medication(s), safely administered during the perioperative period Acuity Level PACU I FT Entry 1 Start Time 10/26/23 10:30:00 Stop Time 10/26/23 11:00:00 Acuity Level Acuity Level I Last Modified By: Sarah Mendoza RN 10/26/23 12:44:30 Finalized By: Sarah Mendoza RN Document Signatures Signed By: Sarah Mendoza RN 10/26/23 12:44 Normal [facility] Main OR Preoperative Recordo n 10-26-2023 Main OR Preoperative Record Holding Area Document Type FT Summary Primary Physician: Cristóbal Lowe MD Finalized Date/Time: 10/26/23 09:20:33 Pt. Name: STEVE WILLIAMSON/Sex: 1965 Male Med Rec #: [id number] Physician: Cristóbal Lowe MD Financial #: [id number] Pt. Type: O Room/Bed: / Admit/Disch: 10/26/23 09:08:34 - Institution: Case Times Holding FT Pre-Care Text: Verifies consent for planned procedure, identifies individual values and wishes concerning care, includes family members in perioperative teaching Secures patient's records' belongings, and valuables, maintains patient's dignity and privacy, and maintains patient confidentiality Entry 1 In Holding 10/26/23 09:15:00 Outcomes Met? Yes Last Modified By: Pati Arreola RN 10/26/23 09:19:32 Post-Care Text: The patient participates in decisions affecting his or her perioperative plan of care The patient's right to privacy is maintained Surgery Checklist FT Entry 1 Patient Birthday, ID Band Procedure History and Physical, Identification: Check, Patient Verification: Surgical Consent, With Participation Patient NPO after Midnight: Yes Date/Time: 10/26/23 05:30:00 Personal Items left ankle screws, Limitations: n/a Comment: clothes, shoes Complaints of Pain: No Pain Comment: denies Operative Site n/a Marked By: n/a Marking: Availability Equipment Verified: Does Patient Smoke No Patient states Yes Comment - Adult Carlos Alberto- daughter postop adult Supervision supervision available Case Cancelled in No Holding Area see comments below for reason Last Modified By: Pati Arreola RN 10/26/23 09:20:31 General Comments: Pt finished colon prep at 0530, states stool is clear liquid light yellow. /,RN Finalized By: Pati Arreola RN Document Signatures Signed By: Pati Arreola RN 10/26/23 09:20 Normal [facility] Monitor Recordon 10-26-2023 Monitor Record [id number]#1. 00TIFF Normal [facility] Monitor Record [id number]#1. 00TIFF Normal [facility] Outpatient Surgery Discharge Instructionon 10-26-2023 Outpatient Surgery Discharge Instruction [address] [address] Patient Discharge Instructions PERSON INFORMATION Name: STEVE WILLIAMSON Date of : 1965 Current Date: 10/26/2023 10:36:19 PHYSICIANS Admitting Physician: Mynor LEVIN, Cristóbal Winkler Discharge Diagnosis: Colon cancer screening STEVE WILLIAMSON has been given the following list of follow-up instructions, prescriptions, and patient education materials: PATIENT FOLLOW-UP INFORMATION Diet: Regular Discharge Activity: Resume normal activities in 24 hours Discharge Restrictions: No driving for 24 hrs Call Your Doctor For: Persistent or heavy bleeding IF UNABLE TO CONTACT YOUR PHYSICIAN AND YOU FEEL IT IS AN EMERGENCY, GO TO THE NEAREST EMERGENCY ROOM OR CALL 911 I, STEVE WILLIAMSON, have received the attached patient education materials/instructions and have verbalized understanding: May we do a follow up call? Yes No I was present when discharge instructions were given Patient Signature Date Clinican/Nurse Signature ___ Date Follow up: With: Address: When: Cristóbal Lowe [address] [place] [address] Aimee, [facility] [[email or web address]] [address] [address] [phone] [facility] (1) Comments: office will calll for follow up Type Location Start Finish State URO New Patient [facility] [place] 12/10/2023 11:00 AM 12/10/2023 11:15 AM Confirmed Pharmacy Information: Leonardo Streeter , Mail Order You may receive a survey from [employer] asking you to rate your care experience. Your feedback is important and will help us understand what we do well and how we can improve the quality of care we provide to you, your loved ones and our community. It?s an honor to serve you. Thank you for choosing [facility] HERE ARE THE MEDICATION CHANGES THAT OCCURRED DURING YOUR HOSPITAL STAY Medications to Continue with No Changes Other Medications acetaminophen (Tylenol 325 mg Tab) 2 Tablets By Mouth as needed as needed for pain. acetaminophen-hydrocod one (Burlington 325 mg-5 mg oral tablet) 1 - 2 po q4-6h prn pain Dx: M67.52 Duration: 7 days; as needed for pain. Refills: 0. ascorbic acid (Vitamin C) 500 Milligram By Mouth every day. aspirin (Ecotrin 325 mg Tab-EC) 1 Tablets By Mouth every day. Refills: 0. calcium carbonate (calcium (as carbonate) 600 mg oral tablet) 1 Tablets By Mouth every day. epinephrine Subcutaneous as needed Anaphylaxis. ibuprofen 400 Milligram By Mouth every 6 hours as needed as needed for pain. latanoprost ophthalmic (latanoprost Opth 0.005% Kena) 1 Drops Ophthalmic once a day (at bedtime)., glaucoma multivitamin with minerals (Celebrate Multivitamin oral capsule) 1 Capsules By Mouth every day. predniSONE (predniSONE 20 mg Tab) 2 Tablets By Mouth every day for 5 Days. Refills: 0. rosuvastatin (rosuvastatin 20 mg Tab) 1 Tablets By Mouth every day. PATIENT EDUCATION INFORMATION Instructions: Colonoscopy Care After Surgery Please read the instructions outlined below and refer to this sheet in the next few weeks. These discharge instructions provide you with general information on caring for yourself after you leave the hospital. Your doctor may also give you specific instructions. While your treatment has been planned according to the most current medical practices available, unavoidable complications occasionally occur. If you have any problems or questions after discharge, please call your doctor. ACTIVITY You may resume your regular activity, but move at a slower pace for the next 24 hours. Take frequent rest periods for the next 24 hours. Walking will help get rid of the air and reduce the bloated feeling in your abdomen (belly). No driving for 24 hours (because of the anesthesia (medicine) used during the test). You may shower. Do not sign any important legal documents or operate any machinery for 24 hours (because of the anesthesia used during the test). NUTRITION Drink plenty of fluids. You may resume your normal diet as instructed by your doctor. Begin with a light meal and progress to your normal diet. Heavy or fried foods are harder to digest and may make you feel nauseated (sick to your stomach). Avoid alcoholic beverages for 24 hours or as instructed. MEDICATIONS You may resume your normal medications unless your doctor tells you otherwise. WHAT YOU CAN EXPECT TODAY Some feelings of bloating in the abdomen. Passage of more gas than usual. Spotting of blood in your stool or on the toilet paper. FOLLOW-UP Your doctor will discuss the results of your test with you. SEEK IMMEDIATE MEDICAL ATTENTION IF: There is more than (more content not included)... Normal [facility] Patient Education - Texton 1 12-27-2022 Patient Education - Text Colonoscopy Care After Surgery Please read the instructions outlined below and refer to this sheet in the next few weeks. These discharge instructions provide you with general information on caring for yourself after you leave the hospital. Your doctor may also give you specific instructions. While your treatment has been planned according to the most current medical practices available, unavoidable complications occasionally occur. If you have any problems or questions after discharge, please call your doctor. ACTIVITY You may resume your regular activity, but move at a slower pace for the next 24 hours. Take frequent rest periods for the next 24 hours. Walking will help get rid of the air and reduce the bloated feeling in your abdomen (belly). No driving for 24 hours (because of the anesthesia (medicine) used during the test). You may shower. Do not sign any important legal documents or operate any machinery for 24 hours (because of the anesthesia used during the test). NUTRITION Drink plenty of fluids. You may resume your normal diet as instructed by your doctor. Begin with a light meal and progress to your normal diet. Heavy or fried foods are harder to digest and may make you feel nauseated (sick to your stomach). Avoid alcoholic beverages for 24 hours or as instructed. MEDICATIONS You may resume your normal medications unless your doctor tells you otherwise. WHAT YOU CAN EXPECT TODAY Some feelings of bloating in the abdomen. Passage of more gas than usual. Spotting of blood in your stool or on the toilet paper. FOLLOW-UP Your doctor will discuss the results of your test with you. SEEK IMMEDIATE MEDICAL ATTENTION IF: There is more than a spotting of blood in your stool. There is abdominal distention (your abdomen is swollen). There is vomiting. You have a temperature over 101.5 F. There is abdominal pain or discomfort that is severe or gets worse throughout the day. Diverticulosis Many people have small pouches in their colon called diverticulum. The diverticulum bulge outward through weak spots in the colon. You could have one or more of these pouches in the colon. The condition of having these pouches in the colon is called diverticulosis or diverticular disease. Diverticulosis is usually diagnosed by tests to evaluate something else. For example, you may have had a colonoscopy to screen for colon cancer when the diverticulosis was found. Most people with diverticulosis do not have any discomfort or problems. If symptoms develop, they may include mild cramps, bloating, and constipation. A complication of this condition is called diverticulitis. This is when the diverticulum become inflamed and infected. How to treat diverticulosis: Increasing the amount of fiber in the diet may reduce symptoms of diverticulosis and prevent complications such as diverticulitis (infected diverticuli). Fiber keeps stool soft and lowers pressure inside the colon so that bowel contents can move through easily. You should eat 20 to 35 grams of fiber each day. The table below shows the amount of fiber in some foods that you can easily add to your diet. Adding fiber slowly may decrease the bloating and fullness sometimes felt with an immediate high fiber diet. The doctor may also recommend taking a fiber product such as Citrucel or Metamucil once a day. In the past people with diverticulosis were to avoid nuts, corn, and seeds. This has not been found to be true. If you find that certain foods create cramping or bloating, avoid that food. Foods high in fiber include: Fresh fruits, fresh vegetables, legumes (beans), whole wheat bread, bran muffins or cereal, and nuts. See the table below for examples of high fiber foods. Remember, your goal is 20-35 grams per day. Amount of fiber in different foods Food Serving Grams of fiber Fruits Apple (with skin) 1 medium apple 4.4 Banana 1 medium banana 3.1 Oranges 1 orange 3.1 Prunes 1 cup, pitted 12.4 Juices Apple, unsweetened, w/added ascorbic acid 1 cup 0.5 Grapefruit, white, canned, sweetened 1 cup 0.2 Grape, unsweetened, w/added ascorbic acid 1 cup 0.5 [place] 1 cup 0.7 Vegetables Cooked Green beans 1 cup 4.0 Carrots 1/2 cup sliced 2.3 Peas 1 cup 8.8 Potato (baked, with skin) 1 medium potato 3.8 Raw [place] (with peel) 1 cucumber 1.5 Lettuce 1 cup shredded 0.5 Tomato 1 medium tomato 1.5 Spinach 1 cup 0.7 Legumes Baked beans, canned, no salt added 1 cup 13.9 Kidney beans, canned 1 cup 13.6 Marte beans, canned 1 cup 11.6 Lentils, boiled 1 cup 15.6 Breads, pastas, flours Bran muffins 1 medium muffin 5.2 Oatmeal, cooked 1 cup 4.0 White bread 1 slice 0.6 Whole-wheat bread 1 slice 1.9 Pasta and rice, cooked Macaroni 1 cup 2.5 Rice, brown 1 cup 3.5 Rice, white 1 cup 0.6 Spaghetti (regular) 1 cup 2.5 Nuts Almonds 1/2 cup 8.7 Peanuts 1/2 cup 7.9 [facility]. SEEK IMMEDIATE MEDIC (more content not included)... Normal [facility] Insurance Correspondenceon 12-15-2022 Insurance Correspondence [id number]#1. 00TIFF [facility] Consent for Procedure/Surger yon 08-29-2023 Consent for Procedure/Surgery [id number]#1. 00TIFF [facility] Ambulatory Visit Summaryon 1 Ambulatory Visit Summary STEVE WILLIAMSON :1965 Visit Date:08/28/2023 Ambulatory Visit Instructions Your Diagnosis Screen for colon cancer Your Care Team Attending Physician - Jennifer Guan CNP Primary Care Physician - KRISTI MENA, DELPHINE Referring Physician - ARNOLD MOYA MD This Is Your Medications List Contact prescribing physician if questions or concerns acetaminophen (Tylenol 325 mg Tab) acetaminophen-hydrocod one ([place] 325 mg-5 mg oral tablet) ascorbic acid (Vitamin C) aspirin (Ecotrin 325 mg Tab-EC) calcium carbonate (calcium (as carbonate) 600 mg oral tablet) epinephrine ibuprofen latanoprost ophthalmic (latanoprost Opth 0.005% Kena) multivitamin with minerals (Celebrate Multivitamin oral capsule) predniSONE (predniSONE 20 mg Tab) rosuvastatin (rosuvastatin 20 mg Tab) Procedures Performed Arthroscopy of knee (05/07/2019), ANKLE FRACTURE. Discharge Vitals Temperature (Temporal Artery) 36.7 ?C Heart Rate (Peripheral) 61 Blood Pressure 115/76 Height 175.2 cm Height 69 in Weight 82.7 kg Weight 181.94 lb BMI 26.94 What to do next You Need to Schedule the Following Appointments Follow Up with Jennifer Guan CNP When: Within 1 to 2 weeks Comments: Following colonoscopy. Where: Medications What How Much When Instructions Unchanged acetaminophen (Tylenol 325 mg Tab) 2 Tablets By Mouth As needed for as needed for pain Contact prescribing physician if questions or concerns Unchanged acetaminophen-hydrocod one ([place] 325 mg-5 mg oral tablet) See instructions 1 - 2 po q4-6h prn pain Dx: M67.52 Duration: 7 days Contact prescribing physician if questions or concerns Unchanged ascorbic acid (Vitamin C) 500 Milligram By Mouth Every day Contact prescribing physician if questions or concerns Unchanged aspirin (Ecotrin 325 mg Tab-EC) 1 Tablets By Mouth Every day Contact prescribing physician if questions or concerns Unchanged calcium carbonate (calcium (as carbonate) 600 mg oral tablet) 1 Tablets By Mouth Every day Contact prescribing physician if questions or concerns Unchanged epinephrine Contact prescribing physician if questions or concerns Unchanged ibuprofen 400 Milligram By Mouth Every 6 hours as needed for as needed for pain Contact prescribing physician if questions or concerns Unchanged latanoprost ophthalmic (latanoprost Opth 0.005% Kena) 1 Drops Ophthalmic Once a day (at bedtime) Contact prescribing physician if questions or concerns Unchanged multivitamin with minerals (Celebrate Multivitamin oral capsule) 1 Capsules By Mouth Every day Contact prescribing physician if questions or concerns Unchanged predniSONE (predniSONE 20 mg Tab) 2 Tablets By Mouth Every day Duration: 5 Days Contact prescribing physician if questions or concerns Unchanged rosuvastatin (rosuvastatin 20 mg Tab) 1 Tablets By Mouth Every day Contact prescribing physician if questions or concerns Medications and Immunizations Administered Not Given influenza virus vaccine, inactivated, Patient Refuses Allergies penicillins (Unknown, Allergy, Unspecified, Not Elsewhere Classified) Problems Ongoing - Any problem that you are currently receiving treatment for. Screen for colon cancer Historical - Any problem that you are no longer receiving treatment for. Plantar fasciitis Education Materials Colonoscopy, Adult A colonoscopy is a procedure to look at the entire large intestine. This procedure is done using a long, thin, flexible tube that has a camera on the end. You may have a colonoscopy: ? As a part of normal colorectal screening. ? If you have certain symptoms, such as: ? A low number of red blood cells in your blood (anemia). ? Diarrhea that does not go away. ? Pain in your abdomen. ? Blood in your stool. A colonoscopy can help screen for and diagnose medical problems, including: ? An abnormal growth of cells or tissue (tumor). ? Abnormal growths within the lining of your intestine (polyps). ? Inflammation. ? Areas of bleeding. Tell your health care provider about: ? Any allergies you have. ? All medicines you are taking, including vitamins, herbs, eye drops, creams, and azqq-hxr-sojblyw medicines. ? Any problems you or family members have had with anesthetic medicines. ? Any bleeding problems you have. ? Any surgeries you have had. ? Any medical conditions you have. ? Any problems you have had with having bowel movements. ? Whether you are or may be . What are the risks? Generally, this is a safe procedure. However, problems may occur, including: ? Bleeding. ? Damage to your intestine. ? Allergic reactions to medicines given during the procedure. ? Infection. This is rare. What happens before the procedure? Eating and drinking restrictions Follow instructions from your health care provider about eating or drinking restrictions, which may incl (more content not included)... Normal [facility] Gastroenterology Office/Clin ic Noteon 08-28-2023 Gastroenterology Office/Clinic Note Chief Complaint Colonoscopy HPI Staff This is a 58 year old male who presents today to schedule a colonoscopy. Patient was referred by Dr Arnold Moya. History of Present Illness Patient is a 58-year-old male who presents for referral from his PCP?Dr. Moya for colonoscopy. Family history of colon cancer: Denies. Family history of colon polyps: Denies. Personal history of colon cancer: Denies. Personal history of colon polyps: Denies. Anticoagulation therapy: Denies. Antiplatelet therapy: Denies. During today's visit, patient reports he is doing well. Has never had colonoscopy before. Is having 1 formed BM daily. Denies change in bowel habits, black/bloody stools, nausea/vomiting, fever/chills, unintentional weight loss, and denies having any other GI complaints. Review of Systems PHQ Score Initial Depression Screen Score: 0 ROS - Provider Constitutional: no fever, no chills. Skin: no Jaundice. ENMT: Denies dysphagia and heartburn. Respiratory: no shortness of breath. Cardiovascular: no chest pain. Gastrointestinal: no nausea, no vomiting, no diarrhea, no GI bleeding. Physical Exam Vitals & Measurements T: 36.7 ?C(Temporal Artery) HR: 61(Peripheral) BP: 115/76 HT: 69 in HT: 175.2 cm WT: 82.7 kg WT: 181.94 lb BMI: 26.94 General: Well developed, well nourished, in no acute distress Head: Normocephalic/atraumat ic Lungs: Normal respiratory effort and clear to auscultation Cardio: Regular rate and rhythm, normal S1 and S2, no murmur, no rub Abdomen: Soft, non-distended, non-tender. Normoactive bowel sounds present in all 4 abdominal quadrants, bilaterally. Mental Status: Alert and oriented x3. Normal mood and affect Assessment/Plan 1. Screen for colon cancer (Z12.11: Encounter for screening for malignant neoplasm of colon) Has never had colonoscopy before. Ordered colonoscopy. Denies anticoagulation therapy. Ordered: Colonoscopy (Hospital Procedure) Educated regarding MiraLAX colon prep. Follow-up With When Contact Information Freida VICTIM ADVOCATE, Jennifer A Within 1 to 2 weeks Additional Instructions: Following colonoscopy. Patient Education Colonoscopy, Adult Problem List/Past Medical History Ongoing Screen for colon cancer Historical Plantar fasciitis Procedure/Surgical History Arthroscopy of knee (05/07/2019), ANKLE FRACTURE. Medications calcium (as carbonate) 600 mg oral tablet, 600 mg= 1 tab(s), Oral, Daily Celebrate Multivitamin oral capsule, 1 cap(s), Oral, Daily Ecotrin 325 mg Tab-EC, 325 mg= 1 tab(s), Oral, Daily, Not taking epinephrine ibuprofen, 400 mg, Oral, q6hr, PRN latanoprost Opth 0.005% Kena, 1 drop(s), OPTH, Once a day (at bedtime) [place] 325 mg-5 mg oral tablet, See Instructions, PRN, Not taking predniSONE 20 mg Tab, 40 mg= 2 tab(s), Oral, Daily, Not taking rosuvastatin 20 mg Tab, 20 mg= 1 tab(s), Oral, Daily Tylenol 325 mg Tab, 650 mg= 2 tab(s), Oral, PRN Vitamin C, 500 mg, Oral, Daily Allergies penicillins (Unknown, Allergy, Unspecified, Not Elsewhere Classified) Social History Alcohol - Denies Alcohol Use, 05/02/2019 Current, Beer, 1-2 times per week, 1 drinks/episode average. 2.00 drinks/episode maximum. Started age 20 Years. Previous treatment: None. Alcohol use interferes with work or home: No. Drinks more than intended: No. Others hurt by drinking: No. Ready to change: No. Household alcohol concerns: No., 03/07/2013 Substance Abuse - Denies Substance Abuse, 03/07/2013 Tobacco - Denies Tobacco Use, 03/07/2013 Never (less than 100 in lifetime) Tobacco Use:. Never Smokeless Tobacco Use:., 08/28/2023 Family History Hyperlipidemia: Mother and Father. Immunizations Vaccine Date Status Comments influenza virus vaccine, inactivated - Not Given Patient Refuses zoster vaccine, inactivated 12/14/2022 Recorded zoster vaccine, inactivated 09/10/2022 Recorded influenza virus vaccine, inactivated 09/10/2022 Recorded SARS-CoV-2 (COVID-19) mRNA BNT-162b2 vax 11/18/2021 Recorded influenza virus vaccine, inactivated 09/03/2021 Recorded SARS-CoV-2 (COVID-19) mRNA BNT-162b2 vax 03/02/2021 Recorded 2023-08-27: TPV50 SARS-CoV-2 (COVID-19) mRNA BNT-162b2 vax 02/09/2021 Recorded 2023-08-27: TPV50 Normal [facility] Comment on above: Result Comment: Elec tronically Signed By: Freida LECHUGA, Jennifer Morton\julisa\Date and Time Signed: 08/28/23 15:42 EDT Physician Orderon 08-23-2023 Physician Order [id number] 0CD:127 Normal [facility] Physician Referralon 023 Physician Referral [id number] 0CD:127 Normal [facility] Auto Diffon 08-21-2023 Basophils/100 WBC (Bld) 0.5 % Normal 0.0-2.0 [facility] Comment on above: Order Comment: Order Added by Discern Expert. Performed By: #### 2 [id number] #### [facility] [address] [place] [address] Basophils/Leukocytes Auto (Bld) [Pure # fraction] 0.0 E9/L Normal 0.0-0.2 [facility] Comment on above: Order Comment: Order Added by Discern Expert. Performed By: #### 2 [id number] #### [facility] [address] [place] [address] Eosinophils/100 WBC (Bld) 2.2 % Normal 0.0-8.0 [facility] Comment on above: Order Comment: Order Added by Discern Expert. Performed By: #### 2 [id number] #### [facility] [address] [place] [address] Eosinophils/Leukocytes Auto (Bld) [Pure # fraction] 0.1 E9/L Normal 0.0-0.5 [facility] Comment on above: Order Comment: Order Added by Discern Expert. Performed By: #### 2 [id number] #### [facility] [address] [place] [address] Lymphocytes/100 WBC (Bld) 22.9 % Normal 14.0-50.0 [facility] Comment on above: Order Comment: Order Added by Discern Expert. Performed By: #### 2 [id number] #### [facility] [address] [place] [address] Lymphocytes/Leukocytes Auto (Bld) [Pure # fraction] 1.4 E9/L Normal 1.0-4.0 [facility] Comment on above: Order Comment: Order Added by Discern Expert. Performed By: #### 2 [id number] #### [facility] [address] [place] [address] Monocytes/100 WBC (Bld) 9.4 % Normal 4.0-14.0 [facility] [place] Comment on above: Order Comment: Order Added by Discern Expert. Performed By: #### 2 [id number] #### [facility] [address] [place] [address] Monocytes/Leukocytes Auto (Bld) [Pure # fraction] 0.6 E9/L Normal 0.2-1.0 [facility] Comment on above: Order Comment: Order Added by Discern Expert. Performed By: #### 2 [id number] #### [facility] [address] [place] [address] Neutrophils/100 WBC (Bld) 65.0 % Normal 36.0-75.0 [facility] Comment on above: Order Comment: Order Added by Discern Expert. Performed By: #### 2 [id number] #### [facility] [address] [place] [address] Neutrophils/Leukocytes Auto (Bld) [Pure # fraction] 3.9 E9/L Normal 2.0-7.5 [facility] Comment on above: Order Comment: Order Added by Discern Expert. Performed By: #### 2 [id number] #### [facility] [address] [place] [address] CBC w/ Auto Diffon Erythrocyte distribution width (RBC) [Ratio] 12.6 % Normal 10.9-14.2 [facility] Comment on above: Performed By: #### 1 [id number], [id number], [id number], [id number], [id number], [id number] ####[facility] [address] [place] [address] Hematocrit (Bld) [Volume fraction] 45.8 % Normal 37.7-49.0 [facility] Comment on above: Performed By: #### 1 [id number], [id number], [id number], [id number], [id number], [id number], [id number], [id number] ####[facility] [address] [place] [address] Hemoglobin (Bld) [Mass/Vol] 16.1 g/dL Normal 13.5-17.5 [facility] Comment on above: Performed By: #### 1 [id number], [id number], 7303554, 351689036, 11161079, 7899381, 2363967, 61601652 ####[address] [place] [address] MCH (RBC) [Entitic mass] 32.8 pg Normal 27.0-34.0 [facility] Comment on above: Performed By: #### 1 5344387, 1129117, 0060850, 526022963, 64155256, 1534961, 8581381, 70170936 ####[address] [place] [address] MCHC (RBC) [Mass/Vol] 35.1 g/dL Normal 31.4-36.0 [facility] Comment on above: Performed By: #### 1 2401434, 6391908, 1124033, 579151295, 79209548, 9274517, 6212149, 69130272 ####[address] [place] [address] MCV (RBC) [Entitic vol] 93.5 fL Normal 80.0-100.0 [facility] Comment on above: Performed By: #### 1 1038858, 7934121, 7950672, 269977843, 22766612, 5341943, 1491660, 64907650 ####[address] [place] [address] Platelet mean volume (Bld) [Entitic vol] 10.0 fL Normal 6.4-10.8 [facility] Comment on above: Performed By: #### 1 7875826, 1984664, 6902522, 729264954, 66676860, 7358963, 8731135, 04386831 ####[address] [place] [address] Platelets (Bld) [#/Vol] 137.0 E9/L Low 150.0-500.0 [facility] Comment on above: Performed By: #### 1 4686460, 7821387, 1452599, 159623309, 93894138, 4924735, 6452195, 40226167 ####[address] [address] RBC (Bld) [#/Vol] 4.9 E12/L Normal 4.3-5.9 [facility] Comment on above: Performed By: #### 1 9929717, 6057723, 4166401, 345853448, 98946168, 8625370, 2219714, 99722570 ####[address] [address] WBC corrected for nucl RBC Auto (Bld) [#/Vol] 6.0 E9/L Normal 4.0-11.0 [facility] Comment on above: Performed By: #### 1 1119419, 8467273, 9632475, 878476390, 48076260, 3373286, 1830813, 54234969 ####[address] [address] CMPon 08-21-2023 Albumin [Mass/Vol] 4.7 g/dL Normal 3.3-5.0 [facility] Comment on above: Performed By: #### 1 3366457, 8276604, 2027356, 260077940, 67725564, 9398611, 8581637, 32203221 ####[address] [place] [address] Albumin/Globulin (S) [Mass conc ratio] 1.7 Normal 1.1-2.2 [facility] Comment on above: Performed By: #### 1 2111493, 6288928, 8794670, 496738472, 20714118, 4237093, 6620459, 42682575 ####[address] [place] [address] ALP [Catalytic activity/Vol] 45 Int._Unit/L Normal 21-98 [facility] Comment on above: Performed By: #### 1 4739700, 7901737, 0702059, 824632676, 76617765, 5143812, 9247843, 46050460 ####[address] [place] [address] ALT No additional P-5'-P [Catalytic activity/Vol] 31 Int._Unit/L Normal 6-46 [facility] Comment on above: Performed By: #### 1 8661822, 5858063, 7539153, 413878167, 83535161, 4362895, 6730178, 64698080 ####[address] [place] [address] Anion gap [Moles/Vol] 13 mmol/L Normal 6-16 [facility] Comment on above: Performed By: #### 1 6087434, 0650754, 7102240, 228138271, 03805248, 6354929, 2080544, 69085382 ####[address] [place] [address] AST [Catalytic activity/Vol] 26 Int._Unit/L Normal 5-43 [facility] Comment on above: Performed By: #### 1 8136205, 4337803, 8827608, 967007266, 17712778, 7931750, 0181189, 60864086 ####[address] [place] [address] Bilirubin [Mass/Vol] 0.6 mg/dL Normal 0.0-1.1 [facility] Comment on above: Performed By: #### 1 4089225, 9843358, 5282410, 621928039, 69559465, 2487113, 3244478, 89633110 ####[facility] [address] [place] [address] Calcium [Mass/Vol] 9.9 mg/dL Normal 8.9-11.1 [facility] Comment on above: Performed By: #### 1 8130029, 0916160, 9696324, 621413197, 85022630, 5189984, 3207016, 97756373 ####[facility] [address] [place] [address] Chloride [Moles/Vol] 109 mmol/L Normal 101-111 [facility] Comment on above: Performed By: #### 1 0734104, 6664291, 1641834, 442241661, 50402844, 9386992, 2964030, 33947214 ####[facility] [address] [place] [address] CO2 [Moles/Vol] 26 mmol/L Normal 21-31 [facility] Comment on above: Performed By: #### 1 8515551, 7649091, 4613043, 526323343, 97292259, 4596157, 5368681, 63086817 ####[facility] [address] [place] [address] Creatinine [Mass/Vol] 0.9 mg/dL Normal 0.5-1.3 [facility] Comment on above: Performed By: #### 1 3812683, 4517034, 6418755, 324960418, 85618779, 0921491, 3320648, 41660685 ####[facility] [address] [place] [address] Globulin (S) [Mass/Vol] 2.8 g/dL Normal 1.4-4.0 [facility] Comment on above: Performed By: #### 1 7848129, 2521578, 7747631, 199111579, 40409723, 9986771, 0663022, 67234388 ####[facility] [address] [place] [address] Glucose [Mass/Vol] 105 mg/dL Normal 55-199 [facility] Comment on above: Result Comment: If t his glucose result represents a fasting glucose, interpretation should refer to the following reference range: 55-99 mg/dL Performed By: #### 1 1421241, 8557347, 0116305, 122341077, 40088802, 8269277, 1829682, 21489315 ####[facility] [address] [place] [address] Potassium [Moles/Vol] 4.2 mmol/L Normal 3.5-5.3 [facility] Comment on above: Performed By: #### 1 8127425, 6731392, 7107711, 507929194, 24272355, 4542456, 3552037, 30419298 ####[facility] [address] [place] [address] Protein [Mass/Vol] 7.5 g/dL Normal 6.0-7.8 [facility] Comment on above: Performed By: #### 1 5533667, 3223347, 0463500, 420631134, 84934443, 3953651, 9846351, 08333377 ####[facility] [address] [place] [address] Sodium [Moles/Vol] 144 mmol/L Normal 135-145 [facility] Comment on above: Performed By: #### 1 2491328, 9948396, 8169519, 643837457, 39174407, 3975553, 6381903, 59671798 ####[facility] [address] [place] [address] Urea nitrogen [Mass/Vol] 20 mg/dL Normal 5-21 [facility] Comment on above: Performed By: #### 1 6973686, 3185412, 4670425, 276260473, 72591253, 8833364, 3456606, 40717393 ####[facility] [address] [place] [address] Urea nitrogen/Creatinine [Mass ratio] 22 No Units High 09-07 [facility] Comment on above: Performed By: #### 1 0012441, 0205813, 8809936, 909086274, 05027036, 3025413, 8568051, 84631703 ####[facility] [address] [place] [address] Consent for Treatmenton Consent for Treatment [id number] [id number] 0CD:127 Normal [facility] KjyS4usq 08-21-2023 HbA1c (Bld) [Mass fraction] 5.2 % Normal <=5.9 [facility] Comment on above: Performed By: #### 1 2803387, 5251514, 7561987, 167792361, 38147492, 7624380, 6735736, 58414613 ####[facility] [address] [place] [address] Lipid Panelon 08-21-2023 Cholesterol [Mass/Vol] 138 mg/dL Normal 120-200 [facility] Comment on above: Performed By: #### 1 5828168, 9990051, 4587457, 880452297, 00117593, 8631038, 9879126, 14110142 ####[facility] [address] [place] [address] Cholesterol in HDL [Mass/Vol] 39 mg/dL Invalid Interpretation Code [facility] Comment on above: Result Comment: HDL > or equal to 60 mg/dL: Low cardiovascular risk HDL < 40 mg/dL : High cardiovascular risk Performed By: #### 1 5246454, 0048347, 7727752, 447501208, 63424696, 6521442, 9711231, 40403680 ####[facility] [address] [place] [address] Cholesterol in LDL [Mass/Vol] 69 mg/dL Normal <=129 [facility] Comment on above: Performed By: #### 1 3769021, 9301287, 3688435, 600246861, 36545592, 5186512, 0697913, 17809840 ####[facility] [address] [place] [address] Cholesterol in VLDL [Mass/Vol] 19 mg/dL Normal 7-40 [facility] Comment on above: Performed By: #### 1 3942775, 8481774, 6182157, 810961627, 21626002, 0629188, 6506585, 94418822 ####[facility] [address] [place] [address] Triglyceride [Mass/Vol] 97 mg/dL Normal <=149 [facility] Comment on above: Performed By: #### 1 4588169, 0036460, 7022496, 456511981, 78032638, 3283427, 4239882, 53615760 ####[facility] [address] [place] [address] PSA Screen, Totalon 08-21-20 23 Prostate specific Ag [Mass/Vol] 5.4 ng/mL High 0.1-3.5 [facility] Comment on above: Result Comment: The concentration of PSA determined by different manufacturers can vary due to differences in assay methods and reagent specificity. Values obtained from different assay methods cannot be used interchangeably. The methodology used for this result was chemiluminescence using [employer] Access Hybrite[employer] PSA reagent. Performed By: #### 1 2171442, 4548010, 6306111, 756505513, 22424041, 8422526, 5888242, 41564209 ####[facility] [address] [place] [address] Physician Orderon 08-21-2023 Physician Order [id number]#[id number] CD:127 Normal [facility] TSH With T4fr Reflexon 08-21 TSH Qn 1.19 m[IU]/L Normal 0.34-5.60 [facility] Comment on above: Performed By: #### 1 2351107, 4404599, 7386237, 502939952, 27318685, 6739092, 4197258, 73865997 ####[facility] [address] [place] [address] eGFRon 08-21-2023 GFR/1.73 sq M.predicted among non-blacks MDRD (S/P/Bld) [Vol rate/Area] 100 mL/min/1.73 m2 Normal >=59 [facility] Comment on above: Order Comment: Order added by Discern Expert. Result Comment: Sausage Inspector richard kidney disease could be indicated at eGFR's of less than 60 mL/min/1.73m2. Kidney failure is indicated at less than 15 mL/min/1.73m2. Performed By: #### 1 8889301, 0167537, 3855130, 709111008, 50396796, 0030810, 1910102, 01114805 ####[facility] [address] [place] [address] Lab Miscellaneous-LCon 08-15 Lab Miscellaneous COMMENT Invalid Interpretation Code [facility] Comment on above: Result Comment: Test Ordered: [id number] G6PD,Qn,Bld and Hgb Hemoglobin 15.9 g/dL CB Reference Range: 13.0-17.7 G-6-PD, Quant 10.2 U/g Hb BN Reference Range: 5.5-14.2 When decreased, G-6-PD, Quant. values are associated with acute hemolytic anemia when deficient individuals are exposed to oxidative stress, such as with certain medications (e.g., primaquine), infection, or ingestion of yokasta beans. Caution: In patients with acute hemolysis (e.g., abnormally low RBC values), testing for G-6-PD may be falsely normal because older erythrocytes with a higher enzyme deficiency have been hemolyzed. Young erythrocytes and reticulocytes have normal or near-normal enzyme activity. Normal values of G-6-PD may be measured for several weeks following a hemolytic event. Performed at: [facility] [id number] PhD Jefferson Jauregui Performed By: #### 1 5799896, 6654887, 3169217, 14573935, 25513432, 5594863, 2679653, 3799113 #### [facility] [address] [place] [address] Consent for Treatmenton 07-21 Consent for Treatment [id number] [id number] 0CD:127 Normal [facility] Lab Miscellaneous-LCon 08-10 Test Code 835995 Invalid Interpretation Code [facility] Comment on above: Performed By: #### 1 4540768, 3186614, 5052004, 32570179, 26948025, 9533022, 3868887, 3174460 #### [facility] [address] [place] [address] Test Name G6PD Invalid Interpretation Code [facility] Comment on above: Performed By: #### 1 8854446, 3645572, 9877329, 73142643, 79954821, 9553212, 0362031, 2086051 #### [facility] [address] [place] [address] Physician Orderon 08-10-2023 Physician Order [id number] CD:127 Normal [facility] Reference Laboratory Testing Ordered By: Perla Walton on 08-10-2023 Test Code 641770 Invalid Interpretation Code [facility] SendOutsSS Test Name G6PD Invalid Interpretation Code [facility] XR Knee - right 4 Viewson Body surface area Derived from formula 2 m2 [employer] Xrays of the right knee demonstrating no acute abnormalities, well preserved articulations. Factual X-rays, 4 views of t he right knee were ordered and interpreted in the presence of the patient by me today. These included bilateral AP weightbearing, PA flexion bilateral weightbearing, sunrise and lateral. These demonstrate normal mineralization, normal alignment. There is no evidence of acute osseous abnormality or fracture. The medial tibiofemoral compartment demonstrates no evidence of osteoarthrosis. The lateral tibiofemoral compartment demonstrates no evidence of osteoarthrosis. The patellofemoral compartment demonstrates no evidence of osteoarthrosis. [facility] XR Knee - right 4 Viewson Radiology Study observation (narrative) [facility] CHEMISTRYOrdered By: SYSTEM SYSTEM on 03-17-2022 Albumin [Mass/Vol] 5.0 g/dL Normal 3.3 - 5.0 gm/dL [facility] Albumin/Globulin [Mass ratio] 1.7 {ratio} Normal 1.1 - 2.2 [facility] ALP [Catalytic activity/Vol] 53 [iU]/d Normal 21 - 98 Int._Unit/L [facility] ALT No additional P-5'-P [Catalytic activity/Vol] 48 [iU]/d High 6 - 46 Int._Unit/L [facility] Anion gap [Moles/Vol] 16 mmol/L Normal 6 - 16 mEq/L [facility] AST [Catalytic activity/Vol] 31 [iU]/d Normal 5 - 43 Int._Unit/L [facility] Bilirubin [Mass/Vol] 1.2 mg/dL High 0.0 - 1 .1 mg/dL [facility] Calcium [Mass/Vol] 9.6 mg/dL Normal 8.9 - 11. 1 mg/dL [facility] Chloride [Moles/Vol] 100 mmol/L Low 101 - 1 11 mmol/L [facility] Cholesterol [Mass/Vol] 149 mg/dL Normal 120 - 200 mg/dL [facility] Cholesterol in HDL [Mass/Vol] 45 mg/dL Invalid Interpretation Code [facility] Cholesterol in LDL [Mass/Vol] 90 mg/dL Normal <=129mg/dL [facility] Cholesterol in VLDL [Mass/Vol] 16 mg/dL Normal 7 - 40 mg/dL [facility] CO2 [Moles/Vol] 25 mmol/L Normal 21 - 31 mmol/L [facility] Creatinine [Mass/Vol] 1.0 mg/dL Normal 0.5 - 1.3 mg/dL [facility] GFR/1.73 sq M.predicted among blacks MDRD (S/P/Bld) [Vol rate/Area] mL/min/1.73 m2 Normal >=59mL/min/ 1.73 m2 [facility] Chem S GFR/1.73 sq M.predicted among non-blacks MDRD (S/P/Bld) [Vol rate/Area] mL/min/1.73 m2 Normal >=59mL/min/ 1.73 m2 [facility] Chem S Globulin (S) [Mass/Vol] 2.9 g/dL Normal 1.4 - 4.0 gm/dL [facility] Glucose [Mass/Vol] 92 mg/dL Normal 55 - 199 mg/dL [facility] Potassium [Moles/Vol] 4.1 mmol/L Normal 3.5 - 5.3 mmol/L [facility] Prostate specific Ag [Mass/Vol] 4.6 ng/mL High 0.1 - 3.5 ng/mL [facility] Protein [Mass/Vol] 7.9 g/dL High 6.0 - 7.8 gm/dL [facility] Sodium [Moles/Vol] 137 mmol/L Normal 135 - 145 mmol/L [facility] Triglyceride [Mass/Vol] 81 mg/dL Normal <=149mg/dL [facility] TSH Qn 1.19 m[IU]/L Normal 0.34 - 5.60 mcIU/mL [facility] Urea nitrogen [Mass/Vol] 22 mg/dL High 5 - 21 mg/dL [facility] Urea nitrogen/Creatinine [Mass ratio] 22 mg/mg High 10 - 20 [facility] CHEMISTRYOrdered By: Peyton Rivera on 03-17-2022 HbA1c (Bld) [Mass fraction] 5.3 % Normal <=5.9% [facility] HEMATOLOGYOrdered By: SYSTEM SYSTEM on 03-17-2022 Basophils/100 WBC (Bld) 0.4 % Normal 0.0 - 2.0 % [facility] Basophils/Leukocytes Auto (Bld) [Pure # fraction] 0.0 E9/L Normal 0.0 - 0.2 E9/L [facility] Eosinophils/100 WBC (Bld) 0.8 % Normal 0.0 - 8.0 % [facility] Eosinophils/Leukocytes Auto (Bld) [Pure # fraction] 0.1 E9/L Normal 0.0 - 0.5 E9/L [facility] Lymphocytes/100 WBC (Bld) 24.6 % Normal 14.0 - 50.0 % [facility] Lymphocytes/Leukocytes Auto (Bld) [Pure # fraction] 1.7 E9/L Normal 1.0 - 4.0 E9/L [facility] Monocytes/100 WBC (Bld) 8.9 % Normal 4.0 - 14.0 % [facility] Monocytes/Leukocytes Auto (Bld) [Pure # fraction] 0.6 E9/L Normal 0.2 - 1.0 E9/L [facility] Neutrophils/100 WBC (Bld) 65.3 % Normal 36.0 - 75.0 % [facility] Neutrophils/Leukocytes Auto (Bld) [Pure # fraction] 4.6 E9/L Normal 2.0 - 7.5 E9/L [facility] HEMATOLOGYOrdered By: Kylah Adhikari on 03-17-2022 Erythrocyte distribution width (RBC) [Ratio] 13.2 % Normal 10.9 - 14.2 % [facility] Hematocrit (Bld) [Volume fraction] 46.3 % Normal 37.7 - 49.0 % [facility] Hemoglobin (Bld) [Mass/Vol] 16.5 g/dL Normal 13.5 - 17.5 gm/dL [facility] MCH (RBC) [Entitic mass] 32.6 pg Normal 27. 0 - 34.0 pg [facility] MCHC (RBC) [Mass/Vol] 35.6 g/dL Normal 31.4 - 36.0 gm/dL [facility] MCV (RBC) [Entitic vol] 91.6 fL Normal 80.0 - 100.0 fL [facility] Platelet mean volume (Bld) [Entitic vol] 8.8 fL Normal 6.4 - 10.8 fL [facility] Platelets (Bld) [#/Vol] 156.0 E9/L Normal 150. 0 - 500.0 E9/L [facility] RBC (Bld) [#/Vol] 5.1 E12/L Normal 4.3 - 5.9 E12/L [facility] WBC corrected for nucl RBC Auto (Bld) [#/Vol] 7.0 E9/L Normal 4.0 - 11.0 E9/L [facility] POCT OCCULT BLOOD STOOLon Hemoglobin.gastrointesti nal Ql (Stl) Negative [facility] Interpretation and review of laboratory results Normal [facility] POCT OCCULT BLOOD STOOLon Hemoglobin.gastrointesti nal Ql (St) Negative [facility] Interpretation and review of laboratory results Normal [facility] Vital Signs Date Time Vital Sign Value Performing Clinician Facility 03-17-2024 12:54-0400 Blood Pressure Location Nadir GARCÍA [facility] 03-17-2024 12:54-0400 Body temperature 98.6 [degF] Nadir GARCÍA [facility] 03-17-2024 12:54-0400 Diastolic blood pressure 78 mm[Hg] Nadir GARCÍA [facility] 03-17-2024 12:54-0400 Heart rate 98 /min Nadir GARCÍA [facility] 03-17-2024 12:54-0400 Systolic blood pressure 118 mm[Hg] Nadir GARCÍA [facility] 03-12-2024 11:34-0400 Body height 175.3 cm Delphine Christiandarrenirak S[employer]ROS[employer]IST[employer] Work Phone: [facility] 03-12-2024 11:34-0400 Body mass index (BMI) [Ratio] 28.97 kg/m2 Delphine Garciaubachik SPECTROSCOPIST-[employer]IM [employer] Work Phone: [facility] 03-12-2024 11:34-0400 Body temperature 98.1 [degF] Delphine Christianubachik SPECTROSCOPIST[employer]IM AD[employer] Work Phone: [facility] 03-12-2024 11:34-0400 Body weight 89 kg Delphine Trubachik SPECTROSCOPIST[employer] Work Phone: [facility] 03-12-2024 11:34-0400 Diastolic blood pressure 64 mm[Hg] Delphine Berry SPECTROSCOPIST[employer]IM [employer] Work Phone: [facility] 03-12-2024 11:34-0400 Heart rate 73 /min Delphine Riverk SPECTROSCOPIST[employer] Work Phone: [facility] 03-12-2024 11:34-0400 Respiratory rate 18 /min Delphine Berry SPECTROSCOPIST[employer] Work Phone: [facility] 03-12-2024 11:34-0400 SaO2% (BldA) [Mass fraction] 97 % Delphine Berry SPECTROSCOPIST[employer] Work Phone: [facility] 03-12-2024 11:34-0400 Systolic blood pressure 104 mm[Hg] Delphine Berry SPECTROSCOPIST[employer] Work Phone: [facility] 03-10-2024 13:31-0400 Body height 176.53 cm [facility] 03-10-2024 13:31-0400 Body mass index (BMI) [Ratio] 27.6 kg/m2 [facility] 03-10-2024 13:31-0400 Body temperature 97.1 [degF] [facility] 03-10-2024 13:31-0400 Body weight 86.18 kg [facility] 03-10-2024 13:31-0400 Diastolic blood pressure 76 mm[Hg] [facility] 03-10-2024 13:31-0400 Heart rate 76 /min [facility] 03-10-2024 13:31-0400 Systolic blood pressure 112 mm[Hg] [facility] 02-11-2024 13:04-0400 Body height 175.3 cm Delphine Berry SPECTROSCOPIST[employer] Work Phone: [facility] 02-11-2024 13:04-0400 Body mass index (BMI) [Ratio] 28.12 kg/m2 Delphine Berry SPECTROSCOPIST-[employer]IM AD[employer] Work Phone: [facility] 02-11-2024 13:04-0400 Body temperature 98.2 [degF] Delphine Berry SPECTROSCOPIST[employer]CTIM ADV[employer] Work Phone: [facility] 02-11-2024 13:04-0400 Body weight 86.36 kg Delphine Berry SPECTROSCOPIST[employer]IM ADV[employer] Work Phone: [facility] 02-11-2024 13:04-0400 Diastolic blood pressure 70 mm[Hg] Delphine Berry SPECTROSCOPIST[employer]VI[employer]IM [employer] Work Phone: [facility] 02-11-2024 13:04-0400 Heart rate 79 /min Delphine Berry SPECTROSCOPIST[employer]IM [employer] Work Phone: [facility] 02-11-2024 13:04-0400 Respiratory rate 18 /min Delphine Riverk SPECTROSCOPIST-VICTIM ADVOCATE Work Phone: [facility] 02-11-2024 13:04-0400 SaO2% (BldA) [Mass fraction] 97 % Delphinerom Berry SPECTROSCOPIST-VICTIM ADV[employer]ATE Work Phone: [facility] 02-11-2024 13:04-0400 Systolic blood pressure 124 mm[Hg] Delphine Berry SPECTROSCOPIST-[employer]IM ADV[employer] Work Phone: [facility] 01-29-2024 14:25-0400 Hourly Rounding [facility] 01-29-2024 14:25-0400 Promise to Return [facility] 01-29-2024 14:00-0400 Blood Pressure Location [facility] 01-29-2024 14:00-0400 Diastolic blood pressure 74 mm[Hg] [facility] 01-29-2024 14:00-0400 Heart rate 56 /min [facility] 01-29-2024 14:00-0400 Mean blood pressure 93 mm[Hg] [facility] 01-29-2024 14:00-0400 Respiratory rate 18 /min [facility] 01-29-2024 14:00-0400 Systolic blood pressure 130 mm[Hg] [facility] 01-29-2024 13:45-0400 Hourly Rounding [facility] 01-29-2024 13:45-0400 [facility] 01-29-2024 12:15-0400 Hourly Rounding [facility] 01-29-2024 12:15-0400 Promise to Return [facility] 01-29-2024 11:47-0400 Heart rate 66 /min [facility] 01-29-2024 11:47-0400 SaO2% (BldA) [Mass fraction] 95 % [facility] 01-29-2024 11:47-0400 Diastolic blood pressure 77 mm[Hg] [facility] 01-29-2024 11:47-0400 Mean blood pressure 95 mm[Hg] [facility] 01-29-2024 11:47-0400 Systolic blood pressure 131 mm[Hg] [facility] 01-29-2024 11:46-0400 Body temperature 97.7 [degF] [facility] 01-29-2024 08:37-0400 SaO2% (BldA) [Mass fraction] 96 % [facility] 01-29-2024 07:29-0400 Heart rate 52 /min [facility] 01-29-2024 07:29-0400 SaO2% (BldA) [Mass fraction] 96 % [facility] 01-29-2024 07:28-0400 Body temperature 98.06 [degF] [facility] 01-29-2024 07:28-0400 Diastolic blood pressure 79 mm[Hg] [facility] 01-29-[facility] 07:28-0400 Mean blood pressure 97 mm[Hg] [facility]University [facility] 01-29-2024 07:28-0400 Systolic blood pressure 135 mm[Hg] [facility] 20:14-0400 Mean blood pressure 92 mm[Hg] [facility] 01-28-2024 19:15-0400 Respiratory rate 18 /min [facility] 01-28-2024 02:10-0400 [facility] 01-28-2024 02:10-0400 Mean blood pressure 90 mm[Hg] [facility] 01-28-2024 02:10-0400 Respiratory rate 18 /min [facility] 01-26-2024 04:00-0500 Mean blood pressure 74 mm[Hg] [facility] 01-26-2024 00:11-0500 Heart rate 85 /min [facility] 01-25-2024 21:48-0500 [facility] 01-25-2024 21:48-0500 Heart rate 84 /min [facility] 01-25-2024 15:43-0500 Respiratory rate 17 /min [facility] 01-25-2024 13:54-0500 Heart rate 88 /min [facility] 01-18-2024 11:24-0500 Blood Pressure Location Nadir GARCÍA [facility] 01-18-2024 11:24-0500 Diastolic blood pressure 70 mm[Hg] Nadir GARCÍA [facility] 01-18-2024 11:24-0500 Heart rate 68 /min Nadir GARCÍA [facility] 01-18-2024 11:24-0500 Respiratory rate 16 /min Nadir GARCÍA [facility] 01-18-2024 11:24-0500 Systolic blood pressure 116 mm[Hg] Nadir GARCÍA [facility] 01-10-2024 11:00-0500 Diastolic blood pressure 70 mm[Hg] Amauri Tran [facility] 01-10-2024 11:00-0500 Heart rate 65 /min Amauri Tran [facility] 01-10-2024 11:00-0500 Mean blood pressure 81 mm[Hg] Amauri Marc [facility] 01-10-2024 11:00-0500 SaO2% (BldA) [Mass fraction] 96 % Amauri Tran [facility] 01-10-2024 11:00-0500 Systolic blood pressure 102 mm[Hg] Amauri Tran [facility] 01-10-2024 10:30-0500 Diastolic blood pressure 71 mm[Hg] Amauri Marc [facility] 01-10-2024 10:30-0500 Heart rate 63 /min Amauri Marc [facility] 01-10-2024 10:30-0500 Mean blood pressure 83 mm[Hg] Amauri Marc [facility] 01-10-2024 10:30-0500 Respiratory rate 17 /min Amauri Tran [facility] 01-10-2024 10:30-0500 SaO2% (BldA) [Mass fraction] 95 % Amauri Tran [facility] 01-10-2024 10:30-0500 Systolic blood pressure 108 mm[Hg] Amauri Tran [facility] 01-10-2024 09:58-0500 Body temperature 98.96 [degF] Amauri Tran [facility] 01-10-2024 09:58-0500 Diastolic blood pressure 84 mm[Hg] Amarui Tran [facility] 01-10-2024 09:58-0500 Heart rate 67 /min Amauri Tran [facility] 01-10-2024 09:58-0500 SaO2% (BldA) [Mass fraction] 98 % Amauri Tran [facility] 01-10-2024 09:58-0500 Systolic blood pressure 130 mm[Hg] Amauri Tran [facility] 01-07-2024 11:00-0500 Blood Pressure Location Rod Nixrowena [facility] 01-07-2024 11:00-0500 Body temperature 98.24 [degF] Rod Brown [facility] 01-07-2024 11:00-0500 Diastolic blood pressure 78 mm[Hg] Rod Paster [facility] 01-07-2024 11:00-0500 Heart rate 99 /min Rod Brown [facility] 01-07-2024 11:00-0500 Hourly Rounding Rod Paster [facility] 01-07-2024 11:00-0500 Mean blood pressure 93 mm[Hg] Rod Nixr [facility] 01-07-2024 11:00-0500 Respiratory rate 18 /min Rod Paster [facility] 01-07-2024 11:00-0500 SaO2% (BldA) [Mass fraction] 98 % Rod Paster [facility] 01-07-2024 11:00-0500 Systolic blood pressure 122 mm[Hg] Rod Paster [facility] 01-07-2024 10:27-0500 Hourly Rounding Rod Paster [facility] 01-07-2024 10:27-0500 Promise to Return Rod Paster [facility] 01-07-2024 09:04-0500 Hourly Rounding Rod Paster [facility] 01-07-2024 09:04-0500 Promise to Return Rod Paster [facility] 01-07-2024 08:24-0500 Promise to Return Rod Paster [facility] 01-07-2024 08:00-0500 Diastolic blood pressure 85 mm[Hg] Rod Paster [facility] 01-07-2024 08:00-0500 Heart rate 65 /min Rod Paster [facility] 01-07-2024 08:00-0500 Mean blood pressure 101 mm[Hg] Rod Paster [facility] 01-07-2024 08:00-0500 SaO2% (BldA) [Mass fraction] 99 % Rod Paster [facility] 01-07-2024 08:00-0500 Systolic blood pressure 133 mm[Hg] Rod Paster [facility] 01-07-2024 00:20-0500 Body temperature 97.88 [degF] Rod Paster [facility] 01-07-2024 00:20-0500 Diastolic blood pressure 66 mm[Hg] Rod Paster [facility] 01-07-2024 00:20-0500 Heart rate 61 /min Rod Paster [facility] 01-07-2024 00:20-0500 SaO2% (BldA) [Mass fraction] 98 % Rod Paster [facility] 01-07-2024 00:20-0500 Systolic blood pressure 118 mm[Hg] Rod Paster [facility] 01-06-2024 19:55-0500 Mean blood pressure 86 mm[Hg] Rod Paster [facility] 01-06-2024 16:48-0500 Respiratory rate 18 /min Rod Paster [facility] 01-06-2024 16:47-0500 Mean blood pressure 89 mm[Hg] Rod Paster [facility] 01-06-2024 11:47-0500 Mean blood pressure 86 mm[Hg] Rod Paster [facility] 01-05-2024 04:00-0500 Blood Pressure Location Rod Paster [facility] 01-05-2024 04:00-0500 Mean blood pressure 81 mm[Hg] Rod Paster [facility] 01-05-2024 04:00-0500 Respiratory rate 16 /min Rod Paster [facility] 01-04-2024 18:40-0500 Heart rate 74 /min Rod Paster [facility] 01-04-2024 18:13-0500 Respiratory rate 18 /min Rod Paster [facility] 01-04-2024 15:57-0500 Heart rate 91 /min Rod Paster [facility] 12-10-2023 11:56-0500 Blood Pressure Location Nadir GARCÍA [facility] 12-10-2023 11:56-0500 Diastolic blood pressure 79 mm[Hg] Nadir GARCÍA [facility] 12-10-2023 11:56-0500 Heart rate 62 /min Nadir GARCÍA [facility] 12-10-2023 11:56-0500 Respiratory rate 16 /min Nadir GARCÍA [facility] 12-10-2023 11:56-0500 Systolic blood pressure 125 mm[Hg] Nadir GARCÍA [facility] 10-26-2023 10:55-0500 Diastolic blood pressure 81 mm[Hg] Ambrocio Sarmini [facility] 10-26-2023 10:55-0500 Heart rate 58 /min Ambrocio Sarmini [facility] 10-26-2023 10:55-0500 Respiratory rate 16 /min Ambrocio Sarmini [facility] 10-26-2023 10:55-0500 SaO2% (BldA) [Mass fraction] 94 % Ambrocio Sarmini [facility] 10-26-2023 10:55-0500 Systolic blood pressure 119 mm[Hg] Ambrocio Sarmini [facility] 10-26-2023 10:40-0500 Diastolic blood pressure 75 mm[Hg] Ambrocio Sarmini [facility] 10-26-2023 10:40-0500 Heart rate 58 /min Ambrocio Sarmini [facility] 10-26-2023 10:40-0500 Respiratory rate 16 /min Ambrocio Sarmini [facility] 10-26-2023 10:40-0500 SaO2% (BldA) [Mass fraction] 94 % Ambrocio Sarmini [facility] 10-26-2023 10:40-0500 Systolic blood pressure 108 mm[Hg] Ambrocio Sarmini [facility] 10-26-2023 10:35-0500 Diastolic blood pressure 74 mm[Hg] Ambrocio Sarmini [facility] 10-26-2023 10:35-0500 Heart rate 67 /min Ambrocio Sarmini [facility] 10-26-2023 10:35-0500 Respiratory rate 16 /min Ambrocio Sarmini [facility] 10-26-2023 10:35-0500 SaO2% (BldA) [Mass fraction] 94 % Ambrocio Sarmini [facility] 10-26-2023 10:35-0500 Systolic blood pressure 109 mm[Hg] Ambrocio Sarmini [facility] 10-26-2023 10:30-0500 Body temperature 97.16 [degF] Ambrocio Sarmini [facility] 10-26-2023 10:09-0500 Respiratory rate 12 /min Ambrocio Sarmini [facility] 10-26-2023 09:28-0500 Blood Pressure Location Cristóbal Lowe [facility] 10-26-2023 09:28-0500 Body temperature 98.06 [degF] Cristóbal Lowe [facility] 08-21-2023 14:05-0400 Body height 175.3 cm Delphine Garciaubairak SPECTROSCOPIST[employer] Work Phone: [facility] 08-21-2023 14:05-0400 Body mass index (BMI) [Ratio] 25.78 kg/m2 Delphine Garciaubachik SPECTROSCOPIST-[employer]IM ADVOCATE Work Phone: [facility] 08-21-2023 14:05-0400 Body temperature 98.29 [degF] Delphine Garciaubachik SPECTROSCOPIST-VICTIM ADVOCATE Work Phone: [facility] 08-21-2023 14:05-0400 Body weight 79.2 kg Delphine Garciaubachik SPECTROSCOPIST-VICTIM ADVOCATE Work Phone: [facility] 08-21-2023 14:05-0400 Diastolic blood pressure 76 mm[Hg] Delphine Garciaubachik SPECTROSCOPIST-VICTIM ADVOC[employer] Work Phone: [facility] 08-21-2023 14:05-0400 Heart rate 76 /min Delphine Garciaubachik SPECTROSCOPIST-VICTIM ADVOCATE Work Phone: [facility] 08-21-2023 14:05-0400 Respiratory rate 18 /min Delphine Trubachik SPECTROSCOPIST-VICTIM ADV[employer] Work Phone: [facility] 08-21-2023 14:05-0400 SaO2% (BldA) [Mass fraction] 96 % Delphine Garciaubachik SPECTROSCOPIST-VICTIM ADVOCATE Work Phone: [facility] 08-21-2023 14:05-0400 Systolic blood pressure 118 mm[Hg] Delphine Trubachik SPECTROSCOPIST[employer]IM [employer] Work Phone: [facility] 08-15-2022 08:43-0400 Body height 175.3 cm Earle Henderson MD Work Phone: [facility] 08-15-2022 08:43-0400 Body mass index (BMI) [Ratio] 27.31 kg/m2 Earle Henderson MD Work Phone: [facility] 08-15-2022 08:43-0400 Body weight 83.9 kg Earle Henderson MD Work Phone: [facility] 08-15-2022 08:43-0400 Respiratory rate 18 /min Earle Henderson MD Work Phone: [facility] 06-23-2022 07:55-0400 Body height 175.3 cm Earle Henderson MD Work Phone: [facility] 06-23-2022 07:55-0400 Body mass index (BMI) [Ratio] 27.32 kg/m2 Earle Henderson MD Work Phone: [facility] 06-23-2022 07:55-0400 Body weight 83.92 kg Earle Henderson MD Work Phone: [facility] 03-31-2022 13:16-0400 Body height 176.5 cm Delphine Berry SPECTROSCOPIST-[employer]IM ADV[employer] Work Phone: [facility] 03-31-2022 13:16-0400 Body mass index (BMI) [Ratio] 27.31 kg/m2 Delphine Berry SPECTROSCOPIST-VICTIM ADVOCATE Work Phone: [facility] 03-31-2022 13:16-0400 Body temperature 98.1 [degF] Delphine Berry SPECTROSCOPIST-VICTIM ADVOCATE Work Phone: [facility] 03-31-2022 13:16-0400 Body weight 85.09 kg Delphine Berry SPECTROSCOPIST-VICTIM ADV[employer]ATE Work Phone: [facility] 03-31-2022 13:16-0400 Diastolic blood pressure 72 mm[Hg] Delphine Trubachik SPECTROSCOPIST-VICTIM ADVOCATE Work Phone: [facility] 03-31-2022 13:16-0400 Heart rate 82 /min Delphine Garciaubachik SPECTROSCOPIST-VICTIM ADV[employer] Work Phone: [facility] 03-31-2022 13:16-0400 Respiratory rate 18 /min Delphine Garciaubachik SPECTROSCOPIST[employer]VICTIM [employer] Work Phone: [facility] 03-31-2022 13:16-0400 SaO2% (BldA) [Mass fraction] 96 % Delphine Garciaubachik SPECTROSCOPIST[employer]VICTIM ADVOCATE Work Phone: [facility] 03-31-2022 13:16-0400 Systolic blood pressure 120 mm[Hg] Delphine Garciaubachik SPECTROSCOPIST-VICTIM ADVOCATE Work Phone: [facility] 04-12-2021 07:10-0400 Body height 175.3 cm Delphine Garciaubairak SPECTROSCOPIST-VICTIM ADVOCATE Work Phone: [facility] 04-12-2021 07:10-0400 Body mass index (BMI) [Ratio] 28 kg/m2 Delphine Garciaubachik SPECTROSCOPIST-VI[employer]IM ADV[employer] Work Phone: [facility] 04-12-2021 07:10-0400 Body temperature 97.81 [degF] Delphine Riverk SPECTROSCOPIST-VICTIM ADVOCATE Work Phone: [facility] 04-12-2021 07:10-0400 Body weight 86 kg Delphine Garciaubachik SPECTROSCOPIST-VICTIM ADVOCATE Work Phone: [facility] 04-12-2021 07:10-0400 Diastolic blood pressure 80 mm[Hg] Delphine Trubachik SPECTROSCOPIST-VICTIM ADVOCATE Work Phone: [facility] 04-12-2021 07:10-0400 Heart rate 59 /min Delphine Garciaubachik SPECTROSCOPIST-VICTIM ADVOCATE Work Phone: [facility] 04-12-2021 07:10-0400 Respiratory rate 18 /min Delphine Garciaubachik SPECTROSCOPIST-VICTIM ADVOCATE Work Phone: [facility] 04-12-2021 07:10-0400 SaO2% (BldA) [Mass fraction] 97 % [facility] Kristi SPECTROSCOPIST-VICTIM ADVOCATE Work Phone: [facility] 04-12-2021 07:10-0400 Systolic blood pressure 120 mm[Hg] [facility] Kristi SPECTROSCOPIST-VICTIM ADVOCATE Work Phone: [facility] 2021 08:04-0500 BMI (Body Mass Index) 25.64 kg/m2 [facility] 2021 08:04-0500 Body Temperature 98.1 [degF] [facility] 2021 08:04-0500 Body weight 79.89 kg [facility] 2021 08:04-0500 BP Diastolic 72 mm[Hg] [facility] 2021 08:04-0500 BP Systolic 122 mm[Hg] [facility] 2021 08:04-0500 Height 176.5 cm [facility] 2021 08:04-0500 Pulse (Heart Rate) 56 /min [facility] 2021 08:04-0500 Pulse Oximetry 97 % [facility] 2021 08:04-0500 Respiratory Rate 18 /min [facility] 01-30-2020 11:03-0400 BMI (Body Mass Index) 25.82 kg/m2 [facility] 01-30-2020 11:03-0400 Body Temperature 98.2 [degF] [facility] 01-30-2020 11:03-0400 Body weight 80.47 kg [facility] 01-30-2020 11:03-0400 BP Diastolic 72 mm[Hg] [facility] 01-30-2020 11:03-0400 BP Systolic 116 mm[Hg] [facility] 01-30-2020 11:03-0400 Height 176.5 cm [facility] 01-30-2020 11:03-0400 Pulse (Heart Rate) 64 /min [facility] 01-30-2020 11:03-0400 Pulse Oximetry 98 % [facility] 01-30-2020 11:03-0400 Respiratory Rate 18 /min [facility] 01-23-2020 14:00-0500 BMI (Body Mass Index) 26.49 kg/m2 [facility] 01-23-2020 14:00-0500 Body Temperature 98.4 [degF] [facility] 01-23-2020 14:00-0500 Body weight 82.56 kg [facility] 01-23-2020 14:00-0500 BP Diastolic 74 mm[Hg] [facility] 01-23-2020 14:00-0500 BP Systolic 120 mm[Hg] [facility] 01-23-2020 14:00-0500 Height 176.5 cm [facility] 01-23-2020 14:00-0500 Pulse (Heart Rate) 73 /min [facility] 01-23-2020 14:00-0500 Pulse Oximetry 98 % [facility] 01-23-2020 14:00-0500 Respiratory Rate 20 /min [facility] 12-26-2019 14:30-0500 BMI (Body Mass Index) 26.23 kg/m2 [facility] 12-26-2019 14:30-0500 Body Temperature 98.29 [degF] [facility] 12-26-2019 14:30-0500 Body weight 81.74 kg [facility] 12-26-2019 14:30-0500 BP Diastolic 66 mm[Hg] [facility] 12-26-2019 14:30-0500 BP Systolic 104 mm[Hg] [facility] 12-26-2019 14:30-0500 Height 176.5 cm [facility] 12-26-2019 14:30-0500 Pulse (Heart Rate) 71 /min [facility] 12-26-2019 14:30-0500 Pulse Oximetry 95 % [facility] 12-26-2019 14:30-0500 Respiratory Rate 20 /min [facility] 03-17-2019 14:05-0400 BMI (Body Mass Index) 25.68 kg/m2 [facility] 03-17-2019 14:05-0400 Body Temperature 98.8 [degF] [facility] 03-17-2019 14:05-0400 BP Diastolic 64 mm[Hg] [facility] 03-17-2019 14:05-0400 BP Systolic 106 mm[Hg] [facility] 03-17-2019 14:05-0400 Height 177.8 cm [facility] 03-17-2019 14:05-0400 Pulse (Heart Rate) 66 /min [facility] 03-17-2019 14:05-0400 Pulse Oximetry 98 % [facility] 03-17-2019 14:05-0400 Respiratory Rate 20 /min [facility] 03-17-2019 14:05-0400 Weight 81.19 kg [facility] 01-03-2019 15:04-0500 BMI (Body Mass Index) 24.25 kg/m2 [facility] 01-03-2019 15:04-0500 Body Temperature 97.81 [degF] [facility] 01-03-2019 15:04-0500 BP Diastolic 76 mm[Hg] [facility] 01-03-2019 15:04-0500 BP Systolic 120 mm[Hg] [facility] 01-03-2019 15:04-0500 Height 177.8 cm [facility] 02-15-2019 15:04-0500 Pulse (Heart Rate) 56 /min [facility] 01-03-2019 15:04-0500 Pulse Oximetry 98 % [facility] 01-03-2019 15:04-0500 Respiratory Rate 16 /min [facility] 01-03-2019 15:04-0500 Weight 76.66 kg [facility] Encounters Encounter Date Encounter Type Care Provider Facility Start: 04-30-2024 End: 04-30-2024 ambulatory PATRICK KLEIN Facility:[facility] Start: 04-30-2024 End: 04-30-2024 Patient encounter procedure PATRICK KLEIN [facility] Start: 03-17-2024 End: 03-17-2024 ambulatory Nadir GARCÍA Facility:[facility] Start: 03-17-2024 End: 03-17-2024 Patient encounter procedure Nadir GARCÍA [facility] Start: 03-12-2024 ambulatory [facility] Start: 03-12-2024 End: 03-12-2024 Office outpatient visit 25 minutes Delphine Berry SPECTROSCOPIST-VICTIM ADVOCATE Work Phone: [facility] Comment on above: Acute on chronic pro statitis (Primary Dx) Start: 03-10-2024 End: 03-10-2024 ambulatory [facility] Work Phone: Start: 03-10-2024 End: 03-10-2024 Patient encounter procedure [facility] Work Phone: Start: 02-11-2024 ambulatory [facility] Start: 02-11-2024 End: 02-11-2024 Office outpatient visit 40 minutes [facility]ine [facility] SPECTROSCOPIST-VICTIM ADVOCATE Work Phone: [facility] Comment on above: History of UTI (Prim gloria Dx); Acute on chronic prostatitis; Sepsis without acute organ dysfunction, due to unspecified organism; Chest pain, unspecified type; Chest tightness; Shortness of breath; Other eczema Start: 01-25-2024 End: 01-29-2024 Evaluation and management of inpatient Rod Brown Facility:[facility] Start: 01-25-2024 End: 01-29-2024 Evaluation and management of inpatient Louisa Soriano [facility] Start: 01-18-2024 End: 01-18-2024 ambulatory Nadir GARCÍA Facility:[facility] Start: 01-18-2024 End: 01-18-2024 Patient encounter procedure Nadir GARCÍA [facility] Start: 01-10-2024 End: 01-10-2024 Emergency department patient visit Amauri Tran [facility] Start: 01-04-2024 End: 01-07-2024 Evaluation and management of inpatient Marvel Patel Facility:[facility] Start: 01-04-2024 End: 01-07-2024 Evaluation and management of inpatient Rod Brown [facility] Start: 01-01-2024 End: 01-01-2024 ambulatory Nadir GARCÍA Facility:[facility] Start: 01-01-2024 End: 01-01-2024 Patient encounter procedure Nadir GARCÍA [facility] Start: 12-10-2023 End: 12-10-2023 ambulatory DELPHINE GARCIADARRENOLYA Facility:[facility] Start: 12-10-2023 End: 12-10-2023 Patient encounter procedure Nadir GARCÍA [facility] Start: 10-26-2023 End: 10-26-2023 ambulatory DELPHINE RIVERK Facility:[facility] Start: 10-26-2023 End: 10-26-2023 Patient encounter procedure Cristóbal Lowe [facility] Start: 10-01-2023 ambulatory DELPHINE TRUBACHIK Facilit y:[facility] Start: 08-29-2023 ambulatory DELPHINE TRDARRENCHIK Facilit y:[facility] Start: 08-28-2023 End: 08-28-2023 ambulatory Jennifer Guan Facility:[facility] Start: 08-23-2023 ambulatory DELPHINE TRFARZADK Facilit y:Mauricio Start: 08-21-2023 ambulatory SELF SELF Avita Renee [facility] Start: 08-21-2023 End: 08-21-2023 Patient encounter status Delphine Berry SPECTROSCOPIST-VICTIM ADVOCATE Work Phone: [facility] Work Phone: Start: 08-21-2023 End: 08-21-2023 Periodic preventive med est patient 40-64yrs Delphine Berry SPECTROSCOPIST-VICTIM ADVOCATE Work Phone: [facility] Comment on above: Routine general medi quynh examination at a health care facility (Primary Dx); Elevated PSA; Urinary frequency; Encounter for screening colonoscopy Start: 08-21-2023 End: 08-21-2023 ambulatory DELPHINE RIVERK Facility:[facility] Start: 08-10-2023 End: 08-10-2023 ambulatory DELPHINE RIVERK Facility:[facility] Start: 08-10-2023 End: 08-10-2023 Patient encounter procedure DELPHINE BERRY [facility] Start: 08-15-2022 ambulatory SELF SELF [facility] Start: 08-15-2022 End: 08-15-2022 Office outpatient visit 25 minutes Earle Henderson MD Work Phone: [facility] Comment on above: Primary osteoarthrit is of right knee (Primary Dx); Subchondral insufficiency fracture of condyle of right femur, initial encounter; Osteochondral defect of femoral condyle Start: 07-14-2022 End: 07-14-2022 Patient encounter procedure EARLE HENDERSON [facility] Start: 06-23-[address] [facility] Start: 06-23-2022 End: 06-23-2022 Subsequent hospital visit by physician Earle Henderson MD Work Phone: [facility] Rad[facility] Comment on above: Arrived Start: 06-23-2022 End: 06-23-2022 Office outpatient new 30 minutes Earle Henderson MD Work Phone: [facility] Comment on above: Right knee pain, uns pecified chronicity (Primary Dx); Acute medial meniscus tear, right, initial encounter Start: 03-31-2022 End: 03-31-2022 Patient encounter status Delphine Berry SPECTROSCOPIST-VICTIM ADVOCATE Work Phone: [facility] Start: 03-31-2022 End: 03-31-2022 Periodic preventive med est patient 40-64yrs Delphine Berry SPECTROSCOPIST-VICTIM ADVOCATE Work Phone: [facility] Comment on above: Routine general medi quynh examination at a health care facility (Primary Dx); Elevated PSA Start: 03-17-2022 End: 03-17-2022 Patient encounter procedure DELPHINE BERRY [facility] Start: 04-12-2021 End: 04-12-2021 Office outpatient visit 25 minutes Delphine Berry SPECTROSCOPIST-VICTIM ADVOCATE Work Phone: [facility] Comment on above: Environmental and se asonal allergies (Primary Dx) Start: 2021 End: 2021 Periodic preventive med est patient 40-64yrs Delphine Berry Work Phone: [facility] Comment on above: Routine general medi quynh examination at a health care facility (Primary Dx); Dizziness Start: 01-30-2020 End: 01-30-2020 Office outpatient visit 15 minutes Delphine Morton [employer] Work Phone: [facility] Comment on above: Right calf pain (Marva feliciano Dx); Localized swelling of right lower leg Start: 01-23-2020 End: 01-23-2020 Office outpatient visit 25 minutes Delphine Morton [employer] Work Phone: [facility] Comment on above: Right calf pain (Marva feliciano Dx); Localized swelling of right lower leg Start: 12-26-2019 End: 12-26-2019 Periodic preventive med est patient 40-64yrs Delphine Morton [employer] Work Phone: [facility] Comment on above: Routine general medi quynh examination at a health care facility (Primary Dx); Screening for colon cancer Start: 07-15-2019 End: 07-15-2019 Refill Delphine Morton [employer] Work Phone: [facility] Start: 05-15-2019 End: 05-15-2019 Patient encounter procedure Other Other [facility] Start: 05-06-2019 End: 05-06-2019 Patient encounter procedure Marj Demarcus [employer] [facility] Start: 05-02-2019 End: 05-02-2019 Patient encounter procedure Historical Provider [employer] [facility] Start: 05-01-2019 End: 05-01-2019 Patient encounter procedure Other Other [facility] Start: 04-22-2019 End: 04-22-2019 Patient encounter procedure Historical Provider [facility] Start: 04-08-2019 End: 04-08-2019 Patient encounter procedure Other Other [facility] Start: 03-21-2019 End: 03-21-2019 Telephone encounter Marj Demarcus [employer] [facility] Comment on above: Other Start: 03-20-2019 End: 03-20-2019 Telephone encounter Delphine Morton [employer] Work Phone: [place] [place] Comment on above: Results Start: 03-17-2019 End: 03-17-2019 Letter encounter Karla Mi [facility] Start: 03-17-2019 End: 03-17-2019 Patient encounter procedure Marj Tracy [facility] Start: 03-17-2019 End: 03-17-2019 Telephone encounter Karla Mi [facility] Comment on above: Other Start: 03-17-2019 End: 03-17-2019 Office outpatient visit 25 minutes Delphine Morton [employer] Work Phone: [facility] Comment on above: Acute pain of left k nee (Primary Dx) Start: 03-07-2019 End: 03-07-2019 Telephone encounter Delphine Morton [employer] Work Phone: [facility] Comment on above: Results Start: 02-01-2019 End: 02-01-2019 Patient encounter procedure Other Other [facility] Start: 01-30-2019 End: 01-30-2019 Patient encounter procedure Marj Tracy [facility] Start: 01-14-2019 End: 01-14-2019 Telephone encounter Delphine Morton [employer] Work Phone: [facility] Comment on above: Other Start: 01-06-2019 End: 01-06-2019 Patient encounter procedure Other Other [facility] Start: 01-03-2019 End: 01-03-2019 Periodic preventive med est patient 40-64yrs Delphine Morton [employer] Work Phone: [facility] Comment on above: Thrombocytopenia (Pr imary Dx); Routine general medical examination at a health care facility; Liver enzyme elevation; Erectile dysfunction, unspecified erectile dysfunction type; Colon cancer screening Start: 12-19-2018 End: 12-19-2018 Telephone encounter Harriet Jose [facility] Comment on above: Labs Only Start: 10-30-2018 End: 10-30-2018 Patient encounter procedure Marj Tracy [facility] Start: 10-01-2018 End: 10-01-2018 Patient encounter procedure Marj Tracy [facility] Procedures Date Procedure Procedure Detail Performing Clinician Start: 02-11-2024 Urnls dip stick/tabl et rgnt auto w/o microscopy Delphine A Trubachik [employer]PECTROS[employer] Work Phone: Start: 01-01-2024 Transrectal biopsy o f prostate using ultrasound guidance Nadir GARCÍA Start: 10-26-2023 Colonoscopy Cristóbal malone Start: 06-23-2022 Radiologic exam knee complete 4/more views Earle Henderson MD Work Phone: Start: 03-17-2022 Lipid 1996 panel - S brianna or Plasma Delphine Trubachik SPECTROSCOPIST-[employer] Work Phone: Start: 12-26-2019 Blood occult peroxid ase actv qual feces 1 deter Delphine Zimmermanchihansa Work Phone: Start: 05-07-2019 Arthroscopy of knee [employer] Comment on above: Left knee Start: 05-02-2019 LABS (OUTSIDE) Historic al Provider Start: 05-02-2019 OUTSIDE RADIOLOGY Histo rical Provider Start: 04-22-2019 OUTSIDE RADIOLOGY Histo rical Provider Start: 03-20-2019 OUTSIDE RADIOLOGY Delphine Zimmermanchihansa Work Phone: Start: 03-07-2019 LABS (OUTSIDE) Delphine Morton [employer] Work Phone: Start: 01-03-2019 POCT OCCULT BLOOD STOOL Delphine Berry Work Phone: Start: 12-15-2016 Lipid 1996 panel - S brianna or Plasma Marj Demarcus ANKLE FRACTURE 2 DELPHINE TRUBA CHIK Comment on above: LEFT ANKLE ORIF Plan of Treatment Date Care Activity Detail Author Start: 01-03-2029 Tetanus vaccination TETANUS [facility] Start: 03-17-2027 Fasting lipid profile LIPID SCREENIN G [facility] Start: 03-17-2027 Lipid panel LIPID SCREENING [facility] Start: 12-29-2024 ambulatory Ambulatory Facility:E [facility] Start: 10-29-2024 Screening for malign ant neoplasm of colon COLORECTAL CANCER SCREENING DISCUSSION [facility] Start: 08-09-2024 Prostate specific antigen measurement PROSTATE CANCER SCREENING DISCUSSION [facility] Start: 03-31-2023 Prostate specific antigen measurement PROSTATE CANCER SCREENING DISCUSSION [facility] Start: 08-01-2022 COVID-19 VACCINE (3 - Booster for Fam series) COVID-19 VACCINE (3 - Booster for Fam series) [facility] Start: 07-20-2022 Influenza vaccination A [facility] Start: 2022 Prostate specific antigen measurement PROSTATE CANCER SCREENING DISCUSSION [facility] Start: 12-15-2021 Fasting lipid profile LIPID SCREENIN G [facility] Work Phone: Start: 12-26-2020 Colonoscopy COLORECTAL CAN CER SCREENING DISCUSSION [facility] Start: 12-26-2020 Screening for malign ant neoplasm of colon COLORECTAL CANCER SCREENING DISCUSSION [facility] Start: 11-14-2020 Prostate specific antigen measurement PROSTATE CANCER SCREENING DISCUSSION [facility] Start: 02-06-2020 End: 02-06-2020 Office Visit 02/06/2020 Office Visit Family Medicine Delphine Berry, SPECTROSCOPIST-[employer]CTIM ADVOCATE [address] [place] [address] [facility] Start: 01-30-2020 End: 01-30-2020 Office Visit 01/30/2020 Office Visit Family Medicine Delphine Berry, SPECTROSCOPIST-[employer]CTIM ADVOCATE [address] [place] [address] [facility] Start: 01-23-2020 End: 01-22-2021 MRI of knee MRI KNEE RIGHT WITHOUT CONTRAST Imaging Routine Right calf pain Localized swelling of right lower leg Expected: 01/23/2020, Expires: 01/22/2021 [employer] Comment on above: Expected: 01/23/2020 , Expires: 01/22/2021 Start: 01-23-2020 End: 01-22-2021 US DUPLEX EXTREMITY DVT RIGHT US DUPLEX EXTREMITY DVT RIGHT Imaging Routine Right calf pain Localized swelling of right lower leg Expected: 01/23/2020, Expires: 01/22/2021 [employer] Comment on above: Expected: 01/23/2020 , Expires: 01/22/2021 Start: 01-03-2020 Colonoscopy COLON CANCER S CREENING DISCUSSION [facility] Start: 01-03-2020 Protein mass conc COLON CANCER SCREENING DISCUSSION [facility] Start: 07-20-2019 Influenza vaccination INFLUENZA VACC INE (#1) [facility] Start: 03-31-2019 End: 03-31-2019 Office Visit 03/31/2019 Office Visit Orthopaedics Rene Barboza, DO [address] [place] [address] [facility] Start: 03-17-2019 End: 03-17-2020 Radiologic examination of knee XR KNEE LEFT 4+ VIEWS Imaging Routine Acute pain of left knee Expected: 03/17/2019, Expires: 03/17/[address] [facility] Comment on above: Expected: 03/17/2019 , Expires: 03/17/2020 Start: 02-28-2019 Zoster vaccine hzv l nataly for subcutaneous use ZOSTER (SHINGLES) VACCINE (2 of 2) [facility] Start: 01-03-2019 End: 01-03-2019 Ambulatory 01/03/2019 Office Visit Family Medicine Delphine Berry, SPECTROSCOPIST-VICTIM ADVOCATE [address] [place] [address] [facility] Start: 07-20-2018 Influenza vaccination INFLUENZA VACC INE (#1) [facility] Work Phone: Start: 2017 Prostate specific antigen measurement PROSTATE CANCER SCREENING DISCUSSION [facility] Work Phone: Start: 2017 Protein mass conc COLON CANCER SCREENING DISCUSSION [facility] Work Phone: Start: 1986 Third diphtheria, tetanus and acellular pertussis (DTaP) vaccination TDAP (ADULT) [facility] Work Phone: Start: 1985 Tetanus vaccination TETANUS [facility] Work Phone: Start: 01-22-1980 HIV screening HIV SCREENING DISCUSSI ON [facility] Work Phone: Start: 1967 Hepatitis B vaccination HEP B VACCINE (1 of 3 - 3-dose series) Factual CBC, EDIF, PLATELET [facility] Work Phone: Comment on above: Ordered: 12/19/2018 Ordered: 01/03/2019 Cobalamin (Vitamin B 12) mass conc VITAMIN B12 Lab Routine Thrombocytopenia Ordered: 01/03/2019 [employer] Comment on above: Ordered: 01/03/2019 Comprehensive metabo lic 2000 panel COMPREHENSIVE METABOLIC PANEL Routine Routine general medical examination at a health care facility Ordered: 12/19/2018 [facility] Work Phone: Comment on above: Ordered: 12/19/2018 Ecg routine ecg w/le ast 12 lds w/i&r AZ ELECTROCARDIOGRAM, COMPLETE AZ - OFFICE PERFORMED Routine Chest pain, unspecified type Chest tightness Shortness of breath Ordered: 02/11/2024 [employer] Comment on above: Ordered: 02/11/2024 FREE TESTOSTERONE FREE TESTOSTER ONE Routine Routine general medical examination at a health care facility Ordered: 12/19/2018 [facility] Work Phone: Comment on above: Ordered: 12/19/2018 Gamma glutamyl transferase enzyme act/vol GGT Lab Routine Liver enzyme elevation Ordered: 01/03/2019 [facility] Comment on above: Ordered: 01/03/2019 HEPATIC FUNCTION PANEL HEPATIC F UNCTION PANEL Lab Routine Liver enzyme elevation Ordered: 01/03/2019 [facility] [employer] Comment on above: Ordered: 01/03/2019 HEPATITIS A, B, C HEPATITIS A, B , C Lab Routine Liver enzyme elevation Ordered: 01/03/[address] [facility] Comment on above: Ordered: 01/03/2019 LIPID PANEL W CALCULATED LDL LIPID PANEL W CALCULATED LDL Routine Routine general medical examination at a health care facility Ordered: 12/19/2018 [facility] Work Phone: Comment on above: Ordered: 12/19/2018 MR Knee - right WO contrast MRI KNEE RIGHT WITHOUT CONTRAST Imaging Routine Right knee pain, unspecified chronicity Acute medial meniscus tear, right, initial encounter Ordered: 06/28/2022 [facility] Comment on above: Ordered: 06/28/2022 PSA - DIAGNOSTIC/RYDER OR MARKER PSA - DIAGNOSTIC/TUMOR MARKER Lab Routine Elevated PSA Ordered: 03/31/2022 [facility] Comment on above: Ordered: 03/31/2022 Testosterone mass conc TESTOSTER ONE Routine Routine general medical examination at a health care facility Ordered: 12/19/2018 [facility] Work Phone: Comment on above: Ordered: 12/19/2018 TSH W/FT4 REFLEX TSH W/FT4 REFLE X Routine Routine general medical examination at a health care facility Ordered: 12/19/2018 [facility] Work Phone: Comment on above: Ordered: 12/19/2018 XR Knee - right 4 Views XR KNEE RIGHT 4+ VIEWS Imaging Routine Right knee pain, unspecified chronicity 06/23/2022 8:12 AM EDT [facility] Work Phone: [facility] Immunizations Immunization Date Immunization Notes Care Provider Fa cility 12-14-2022 zoster vaccine recombinant Ambrocio Sarmini [facility] 09-10-2022 influenza virus vaccine, unspecified formulation Ambrocio Sarmini [facility] 09-10-2022 zoster vaccine recombinant Ambrocio Sarmini [facility] 11-18-2021 SARS-CoV-2 (COVID-19 ) mRNA BNT-162b2 vax Ambrocio Sarmini [facility] 09-03-2021 influenza virus vaccine, unspecified formulation Ambrocio Sarmini [facility] 03-02-2021 SARS-CoV-2 (COVID-19 ) mRNA BNT-162b2 vax Ambrocio Sarmini [facility] Comment on above: Result Comment: 2022: [id number] 02-09-2021 SARS-CoV-2 (COVID-19 ) mRNA BNT-162b2 vax Ambrocio Marymini [facility] Comment on above: Result Comment: 2022: [id number] 2021 influenza virus vaccine, unspecified formulation Delphine [employer] SPECTROSCOPIST-[employer]IM [employer] Work Phone: [employer] 01-03-2019 influenza virus vaccine, unspecified formulation Delphine [employer] 01-03-2019 zoster vaccine, unspecified formulation [facility] [employer] NEGATED: Highlighted row has not occurred!08-27-2023 influenza virus vaccine, unspecified formulation Ambrocio Marymini [facility] Payers Date Payer Category Payer Unknown ANTHEM ANTHEM HM O PPO POS xxxxxxxxxxxx 2017-Present [id number] 2017 Unknown ANTHEM ANTHEM HM O PPO POS [id number] 2017-Present [id number] 2017 Unknown ANTHEM ANTHEM HM O PPO POS [id number] 2017-Present [address] [place] [address] [id number] 2017 Unknown [id number] 1967 Unknown [id number] 2.16.840.1.511056.3.579.2.983 1967 Unknown [id number] 2.16.840.1.787585.3.579.2.983 1967 Unknown [id number] 2.16.840.1.232058.3.579.2.983 1967 Unknown [id number] 2.16.840.1.362747.3.579.2. 1967 Unknown [id number] 2.16.840.1.783832.3.579.2 1967 Unknown [id number] 2.16.840.1.381139.3.579.2.98 1967 Unknown [id number] 2.16.840.1.775428.3.579.2.98 1967 Unknown [id number] 2.16.840.1.038315.3.579.2 1967 Unknown [id number] 2.16.840.1.071674.3.579.2 1967 Unknown [id number] 2.840.1.488215.3.579.2 1967 Unknown [id number] 2.16840.1.204220.3.579. 1967 Unknown [id number] 2.16.840.1.756616.3.579. 1967 Unknown [id number] 2.16.840.1.548354.3.579.2 1967 Unknown [id number] 2.16.840.1.923664.3.579.2 1967 Unknown [id number] 2.16.840.1.373463.3.579.2 1967 Unknown [id number] 2.16.840.1.790928.3.579.2 1967 Unknown [id number] 2.16.840.1.276760.3.579.2 1967 Unknown [id number] 2.16.840.1.621111.3.579.2727 1967 Unknown [id number] 2.16.840.1.569046.3.579.2727 1967 Unknown [id number] 2.16.840.1.552884.3.579.2727 1967 Unknown [id number] 2.16.840.1.393268.3.579.272 1967 Unknown [id number] 2.16.840.1.055061.3.579.272 Unknown [place] BC/BS [id number] Social History Date Type Detail Facility Start: 12-21-2017 End: 03-17-2024 Tobacco smoking status NHIS Never smoker [facility] Work Phone: Start: 1965 Sex Assigned At Not on file [facility] Work Phone: Start: 03-17-2019 Alcohol Comment occasionally [employer] Start: 03-17-2019 End: 03-12-2024 Alcohol intake Yes [employer] Start: 12-26-2019 End: 03-12-2024 Alcohol intake Current drinker of alcohol (finding) [facility] Start: 12-21-2017 End: 2021 Tobacco use and exposure Never used [facility] Start: 03-17-2019 Alcohol Comment occasionally [facility] Tobacco smoking status No Smoking Status Entered [facility] Tobacco smoking status No Smoking Status Entered [facility] Start: 08-21-2023 End: 03-12-2024 History of Social function [facility] Start: 12-07-2017 Gender identity Identifies as male gender (finding) [facility] Tobacco smoking status Never [facility] Start: 1965 Sex Assigned At Male F [facility] Functional Status Date Assessment Result Facility 03-17-2024 Functional Status N/A [facility] 01-25-2024 Functional Status N/A [facility] 01-18-2024 Functional Status N/A [facility] 01-10-2024 Functional Status N/A [facility] 01-04-2024 Functional Status N/A [facility] 01-04-2024 Functional Status [facility] 01-01-2024 Functional Status N/A [facility] 12-10-2023 Functional Status N/A [facility] 10-26-2023 Functional Status N/A [facility] Clinical Notes 04-12-2021 to 03-17-2024 BRY Andrade - 03/12/2024 11:30 AM EDTTBRY Ansari - 02/11/2024 1:00 PM EDT Note Date & Type Note Facility 03-17-2024 Hospital Discharge instructions Patient Education 03/17/2024 13:59:12 Prostate Cancer Screening Prostate Cancer Screening Prostate cancer screening is testing that is done to check for the presence of prostate cancer in men. The prostate gland is a walnut-sized gland that is located below the bladder and in front of the rectum in males. The function of the prostate is to add fluid to semen during ejaculation. Prostate cancer is one of the most common types of cancer in men. Who should have prostate cancer screening? Screening recommendations vary based on age and other risk factors, as well as between the professional organizations who make the recommendations. In general, screening is recommended if: You are age 50 to 70 and have an average risk for prostate cancer. You should talk with your health care provider about your need for screening and how often screening should be done. Because most prostate cancers are slow growing and will not cause , screening in this age group is generally reserved for men who have a 10- to 15-year life expectancy. You are younger than age 50, and you have these risk factors: ?Having a father, brother, or uncle who has been diagnosed with prostate cancer. The risk is higher if your family member's cancer occurred at an early age or if you have multiple family members with prostate cancer at an early age. ?Being a male who is Black or is of [place] or sub-Saharan descent. In general, screening is not recommended if: You are younger than age 40. You are between the ages of 40 and 49 and you have no risk factors. You are 70 years of age or older. At this age, the risks that screening can cause are greater than the benefits that it may provide. If you are at high risk for prostate cancer, your health care provider may recommend that you have screenings more often or that you start screening at a younger age. How is screening for prostate cancer done? The recommended prostate cancer screening test is a blood test called the prostate-specific antigen (PSA) test. PSA is a protein that is made in the prostate. As you age, your prostate naturally produces more PSA. Abnormally high PSA levels may be caused by: Prostate cancer. An enlarged prostate that is not caused by cancer (benign prostatic hyperplasia, or BPH). This condition is very common in older men. A prostate gland infection (prostatitis) or urinary tract infection. Certain medicines such as male hormones (like testosterone) or other medicines that raise testosterone levels. A rectal exam may be done as part of prostate cancer screening to help provide information about the size of your prostate gland. When a rectal exam is performed, it should be done after the PSA level is drawn to avoid any effect on the results. Depending on the PSA results, you may need more tests, such as: A physical exam to check the size of your prostate gland, if not done as part of screening. Blood and imaging tests. A procedure to remove tissue samples from your prostate gland for testing (biopsy). This is the only way to know for certain if you have prostate cancer. What are the benefits of prostate cancer screening? Screening can help to identify cancer at an early stage, before symptoms start and when the cancer can be treated more easily. There is a small chance that screening may lower your risk of dying from prostate cancer. The chance is small because prostate cancer is a slow-growing cancer, and most men with prostate cancer from a different cause. What are the risks of prostate cancer screening? The main risk of prostate cancer screening is diagnosing and treating prostate cancer that would never have caused any symptoms or problems. This is called overdiagnosisand overtreatment. PSA screening cannot tell you if your PSA is high due to cancer or a different cause. A prostate biopsy is the only procedure to diagnose prostate cancer. Even the results of a biopsy may not tell you if your cancer needs to be treated. Slow-growing prostate cancer may not need any treatment other than monitoring, so diagnosing and treating it may cause unnecessary stress or other side effects. Questions to ask your health care provider When should I start prostate cancer screening? What is my risk for prostate cancer? How often do I need screening? What type of screening tests do I need? How do I get my test results? What do my results mean? Do I need treatment? Where to find more information The [place] [employer]: www.cancer.org [place] [employer]: www.auanet.org Contact a health care provider if: You have difficulty urinating. You have pain when you urinate or ejaculate. You have blood in your urine or semen. You have pain in your back or in the area of your prostate. Summary Prostate cancer is a common type of cancer in men. The prostate gland is located below the bladder and in front of the rectum. This gland adds fluid to semen during ejaculation. Prostate cancer screening may identify cancer at an early stage, when the cancer can be treated more easily and is less likely to have spread to other areas of the body. The prostate-specific antigen (PSA) test is the recommended screening test for prostate cancer, but it has associated risks. Discuss the risks and benefits of prostate cancer screening with your health care provider. If you are age 70 or older, the risks that screening can cause are greater than the benefits that it may provide. This information is not intended to replace advice given to you by your health care provider. Make sure you discuss any questions you have with your health care provider. Document Revised: 05/01/2022 Document Reviewed: 05/01/2022 [employer] Patient Education 2022 [employer]. Follow Up Care 01/30/2024 12:56:12 With:RICKY LEVIN, Nadir Mercado, URL Address: [facility] [address] [place] [phone] When: Unknown Comments:10 mos w/ PSA [facility] 03-12-2024 History of Present illness Narrative Subjective History of Present Illness Patient had a prostate bx done 01/01/[address] García. Following this, he developed prostatitis. Presented to [facility] in [place] on 01/04/2024 with high fever and pressure with urination and did end up having burning with urination. Blood and urine cultures ran and negative. Started on IV antibiotics for a few days then discharged on 01/07/2024 with oral ATB's. Was seen 01/18/[address] García for clearance for travel and was cleared. Went to [facility] from to the 7th. Had to return to hospital d/t high fever on 01/25/2024 and was admitted until 01/29/2024. Cultures this time came back positive for bacteria (both blood and urine per patient). Was started on ATB's in hospital, cultures showed they were ineffective and switched to Ceftriaxone 2 G daily, Heparin and Saline which bacteria was sensitive to. PICC line 01/28/2024. He started this ATB on 01/30/2024. He had to be on this X 6 weeks. He has completed the injections and he does have the PICC line in place still but just received a text advising that this will be removed tomorrow. He did have a follow-up with infectious disease on 03/10/[address] Rodney. According to his note, Juancarlos was supposed to have a follow-up with him 2-3 weeks post discharge but this never happened. Since his PSA is still elevated (trended down from 15 to 7 to 6.5 as of today), he started him on course with Bactrim and he has a follow-up with him in 2 weeks. Patient's current s/sx include none. Aggravating factors none. Relieving factors none. Associated s/sx none. Patient's reason for visit today is to have [facility] paperwork updated. Was seen here on 02/11/2024, paperwork filled out to return to work. He has been off since 02/04/24. His expected return date is 03/25/24. He is currently unable to perform any job duties due to PICC in place but this is being removed tomorrow. He will require heal time post PICC removal He currently has home health coming into home weekly, will see them tomorrow and then, again in 9 days or so Objective Review of Systems Constitutional: Negative for chills, fatigue, fever and unexpected weight change. HENT: Negative for congestion, ear pain, nosebleeds, postnasal drip, rhinorrhea, sinus pressure, sinus pain, sneezing and sore throat. Eyes: Negative for pain, discharge, redness and itching. Respiratory: Negative for cough, chest tightness, shortness of breath and wheezing. Cardiovascular: Negative for chest pain, palpitations and leg swelling. Gastrointestinal: Negative for abdominal pain, constipation, diarrhea, nausea and vomiting. Genitourinary: Negative for dysuria, frequency, hematuria and urgency. Skin: Negative for rash. Allergic/Immunologic: Negative for environmental allergies. Neurological: Negative for dizziness and headaches. Psychiatric/Behavioral: Negative for agitation and sleep disturbance. The patient is not nervous/anxious. Physical Exam Constitutional: He is oriented to person, place, and time. Vital signs are normal. He appears well-developed and well-nourished. Non-toxic appearance. He does not have a sickly appearance. He does not appear ill. No distress. HENT: Right Ear: Hearing, tympanic membrane, external ear and ear canal normal. Left Ear: Hearing, tympanic membrane, external ear and ear canal normal. Nose: Nose normal with mild erythremic turbinate swelling and clear drainage. Right sinus exhibits no maxillary sinus tenderness and no frontal sinus tenderness. Left sinus exhibits no maxillary sinus tenderness and no frontal sinus tenderness. Mouth/Throat: Uvula is midline, oropharynx is clear and moist and mucous membranes are normal. Eyes: Pupils are equal, round, and reactive to light. Conjunctivae reddened, clear drainage noted. No evidence of infective etiology. EOM and lids are normal. Neck: Normal range of motion. Neck supple. Carotid bruit is not present. No thyroid mass and no thyromegaly present. Cardiovascular: Normal rate, regular rhythm, normal heart sounds and intact distal pulses. No murmur heard. Pulmonary/Chest: Effort normal and breath sounds normal. He has no decreased breath sounds. He has no wheezes. He has no rhonchi. He has no rales. Abdominal: Soft. Bowel sounds are normal. There is no tenderness. There is no rebound and no CVA tenderness. Lymphadenopathy: Head (right side): No submental, no submandibular and no tonsillar adenopathy present. Head (left side): No submental, no submandibular and no tonsillar adenopathy present. Right cervical: No superficial cervical adenopathy present. Left cervical: No superficial cervical adenopathy present. Right: No supraclavicular adenopathy present. Left: No supraclavicular adenopathy present. Skin: PICC in place to right arm, intact without evidence of infection. Psychiatric: He has a normal mood and affect. His speech is normal and behavior is normal. Judgment and thought content normal. Cognition and memory are normal. Does have notable anxiety with getting PICC removed and did get tearful when discussing this, however, statistics and education given and this helped alleviate his concerns. . Assessment and Plan Prostatitis, Sepsis and UTI follow-up patient is currently doing very well. Will clear to return to work without restriction on 03/25/2024. Follow-up as needed and yearly for routine physical. Sooner if needed. documented in this encounter [facility] 02-11-2024 History of Present illness Narrative Subjective History of Present Illness Patient had a prostate bx done 01/01/[address] García. Following this, he developed prostatitis. Presented to [facility] in [place] on 01/04/2024 with high fever and pressure with urination and did end up having burning with urination. Blood and urine cultures ran and negative. Started on IV antibiotics for a few days then discharged on 01/07/2024 with oral ATB's. Was seen 01/18/[address] García for clearance for travel and was cleared. Went to [facility] from to the . Had to return to hospital d/t high fever on 01/25/2024 and was admitted until 01/29/2024. Cultures this time came back positive for bacteria (both blood and urine per patient). Was started on ATB's in hospitals, cultures showed they were ineffective and switched to current Ceftriaxone 2 G daily, Heparin and Saline which bacteria was sensitive to. PICC line 01/28/2024. He started this ATB on 01/30/2024. He is to be on this X 6 weeks. He is scheduled through [facility] after 6 weeks of ATB. Patient's current s/sx include does get shortness of breath and chest tightness with stairs and quicker exertion. Chest tightness will sometimes happen just while sitting. Aggravating factors exertion but sometimes without exertion, unsure if anxious when this happens. Relieving factors none. Associated s/sx none. Patient's reason for visit today is to have [facility] paperwork filled out that his urologist (who is managing and caring for his diagnosis) refused to do. He has been off since 02/04/24. His expected return date is 03/25/24. He is unable to perform any job duties due to need for constant abx and with PICC placement, unable to lift, carry, push, pull. With being on Heparin, not able to be around anything that could trigger bleeding or injury. He currently has home health coming into home weekly. He is current getting abx through PICC daily. Jeffrey Williamson is a 59 y.o. male who comes in with a complaint of a rash. Rash has been present for 6-8 months. Rash is red flaky skin worse when shaves. Location of rash is around mouth, spot on chin and in between eyes. Fever: no Sore Throat: no Diarrhea: no History of eczema/dry skin: no Significant exposures: no New soaps/detergents/lotions: does have changes in soaps but does not wash face with soap. Did change up shaving cream but not at same time as rash appeared. Recent new medication use: no Therapy tried so far includes: Triamcinolone cream 0.1% ointment Objective Review of Systems Constitutional: Negative for chills, fatigue, fever. 16# weight gain since in last HENT: Negative for congestion, ear pain, nosebleeds, postnasal drip, rhinorrhea, sinus pressure, sinus pain, sneezing and sore throat. Eyes: Negative for pain, discharge, redness and itching. Respiratory: Positive for chest tightness, shortness of breath. Negative for cough, and wheezing. Cardiovascular: Positive for chest pain (left sided), declines radiation into shoulder/arm/back, declines diaphoresis. Negative for palpitations and leg swelling. Gastrointestinal: Negative for abdominal pain, constipation, diarrhea, nausea and vomiting. Declines heartburn Genitourinary: Negative for dysuria, hematuria and urgency. Frequency with increased water intake. Skin: Positive for rash (is around mouth, would like to discuss). Allergic/Immunologic: Negative for environmental allergies. Neurological: Positive for light-headedness (every once in awhile will get fuzzy feeling, happening angela since PICC placement). Negative for dizziness and headaches. Psychiatric/Behavioral: Does not and has not ever slept really well, typically sleeping 6 hours nightly) The patient is nervous/anxious and does, occasionally, get irritable. Physical Exam Constitutional: He is oriented to person, place, and time. Vital signs are normal. He appears well-developed and well-nourished. Non-toxic appearance. He does not have a sickly appearance. He does not appear ill. No distress. HENT: Right Ear: Hearing, tympanic membrane, external ear and ear canal normal. Left Ear: Hearing, tympanic membrane, external ear and ear canal normal. Nose: Nose normal with mild erythremic turbinate swelling and clear drainage. Right sinus exhibits no maxillary sinus tenderness and no frontal sinus tenderness. Left sinus exhibits no maxillary sinus tenderness and no frontal sinus tenderness. Mouth/Throat: Uvula is midline, oropharynx is clear and moist and mucous membranes are normal. Eyes: Pupils are equal, round, and reactive to light. Conjunctivae reddened, clear drainage noted. No evidence of infective etiology. EOM and lids are normal. Neck: Normal range of motion. Neck supple. Carotid bruit is not present. No thyroid mass and no thyromegaly present. Cardiovascular: Normal rate, regular rhythm, normal heart sounds and intact distal pulses. No murmur heard. Pulmonary/Chest: Effort normal and breath sounds normal. He has no decreased breath sounds. He has no wheezes. He has no rhonchi. He has no rales. Abdominal: Soft. Bowel sounds are normal. There is no tenderness. There is no rebound and no CVA tenderness. Lymphadenopathy: Head (right side): No submental, no submandibular and no tonsillar adenopathy present. Head (left side): No submental, no submandibular and no tonsillar adenopathy present. Right cervical: No superficial cervical adenopathy present. Left cervical: No superficial cervical adenopathy present. Right: No supraclavicular adenopathy present. Left: No supraclavicular adenopathy present. Skin: PICC in place to left arm, intact without evidence of infection. Dry, flaking and red skin surrounding mouth, 1 spot ro left chin and in between eyebrows c/w eczema. Psychiatric: He has a normal mood and affect. His speech is normal and behavior is normal. Judgment and thought content normal. Cognition and memory are normal. Does have notable anxiety with movements and tone and did get tearful when discussing condition. Assessment and Plan Prostatitis, Sepsis and UTI follow-up reviewed all recent available information and reviewedc all patient based information. Patient is currently doing well with some anxiety s/sx which he declines addressing at this time. Will fill out all appropriate FMLA and disability paperwork for patient. To continue with ATB as prescribed and to follow-up with urology as scheduled. Follow-up here if he is willing to address anxiety, otherwise, for his yearly exam. Sooner if needed. Chest Pain/Chest tightness: with CP, EKG obtained in office today and reviewed with pt. Showing no evidence of acute issue/concern. As issues are happening with exertion and anxiety, discussed deconditioning as well as meditation/relaxation and breathing exercise to help. Advised on emergent s/sx and what to do if one should occur. Again, discussed anxiety treatment which patient declines. Eczema: evidence of flare with eczema in office today. Discussed tiral with Hydrocortisone cream OTC twice daily as needed. Spoke regarding methods to help with eczema control aside from medication including short/warm showers and avoidance of skin triggers and itching as well as importance of lotioning skin after showering. Follow-up as needed. To call if no resolution with OTC treatment. EKG: normal EKG, normal sinus rhythm. A total of 76 minutes was spent in review of the patient's chart and labs, note preparation, direct, face to face contact with the patient, and any potential coordination of care today. ( Excluding any time spent on testing or procedures.) documented in this encounter [facility] 02-05-2024 Note [id number] [facility] 02-05-2024 Note [id number] [facility] 02-03-2024 Note Microbiology PROCEDURE: Blood Culture Charcoal [R1] SOURCE: Blood BODY SITE: Arm R COLLECTED DATE/TIME: 01/25/2024 14:51 EST RECEIVED DATE/TIME: 01/25/2024 15:50 EST START DATE/TIME: 01/25/2024 15:50 EST FREE TEXT SOURCE: IV start Ines HONG, Jaden Chacon PA-C, Jaden FINAL REPORTS Final Report [] Verified Date/Time: 02/01/2024 18:00 EDT No growth at 7 days. Performing Locations R1: This test was performed at: [facility], [address] [place] [address], [facility] , , [facility] Comment on above: Performed By: #### 1 [id number], [id number] #### [facility] [address] [place] [id number] 01-29-2024 Evaluation + Plan note Extrac melly from: Title:Infection Admission H&P * Author:Nikita Rodney M.D Date:01/29/24 Impression and Plan Diagnosis Prostatitis Failed outpatient Quinolone E.coli bacteremia with E.coli urine culture.. Orders Patient arrange for IV antibiotics at home with ceftriaxone. Patient has PICC line in his right upper extremity. Patient is clinically doing better from a symptom standpoint though he still some pressure with urination. PSA was elevated. Will follow this weekly while on IV antibiotics and planning 6 weeks given concern of a chronic infection. Patient failed outpatient quinolone therapy not that long ago. Will see him in my office in 2 to 3 weeks.. Extracted from: Title:Discharge Note Author:Rod Brown DO Date:01/29/24 Prescriptions alfuzosin 10 mg ER Tab, 10 mg= 1 tab(s), Oral, Daily, 11 refills cefTRIAXone 2 g Inj, 2 gm, IV Piggyback, Daily S.A.S (Saline, Administration of drug, Saline), 0 S.A.S.H (saline, Administration of drug, Saline, Heparin), 0 Home latanoprost Opth 0.005% Kena, 1 drop(s), OPTH, Once a day (at bedtime) rosuvastatin 20 mg Tab, 20 mg= 1 tab(s), Oral, Daily With When Contact Information DELPHINE BERRY NP Within 5 to [address] [place] [phone]- Business (1) Additional Instructions: Call for followup appointment RICKY LEVIN, GERONIMO Jacobs Within 2 weeks [facility] [address], [place] [address]- Additional Instructions: Call for followup appointment PICC Home Care Guide Prostatitis, [id number] Addendum by Juan David Brown DO, am on January 29, 2024 13:36:09 EDT Patient will follow-up with Dr. Rodney as outpatient as well. Extracted from: Title:APSO Note Author:Rod Brown DO e:01/28/24 Prostatitis (N41.9: Inflamma tory disease of prostate, unspecified) Blood cultures positive for E. coli 1 out of 2 bottles BCx similar to urine culture Called and spoke with ID who recommended 6 weeks total of IV Rocephin 2 g QD until 03/07 weekly PSA levels Will try to get PICC line in today or tomorrow Ordered: ceftriaxone, 2 gm, IV Piggyback, Daily, # 38 EA, Refills(s) 0 Hospital Discharge Day > 30 Min 21912 PSA Total PSA Total PSA Total PSA Total PSA Total PSA Total Sbsq Hospital Care/Day Moderate 35 Minutes 83204 Sepsis (A41.9: Sepsis, unspecified organism) 2/2 above wbc trending down on Ctx 2g daily from cefepime UTI (urinary tract infection) (N39.0: Urinary tract infection, site not specified) tx as above Orders: ceftriaxone + Sodium Chloride 0.9% intravenous solution 50 mL, 2,000 mg = 1 EA, Injection, IV Piggyback, Daily, Routine, Start date 01/29/24 9:00:00 EDT, 100 mL/hr, Infuse over 30 minute(s) Misc Prescription, S.A.S.H (saline, Administration of drug, Saline, Heparin), Print Requisition, Supply Misc Prescription, S.A.S (Saline, Administration of drug, Saline), Print Requisition, Supply CBC w/ Auto Diff CV PICC Line Insertion Referral to Resource Center Referral to Resource Center Extracted from: Title:ED Note Author:Daniel Espinoza PA-C te:01/25/24 Prostatitis (N41.9: Inflamma tory disease of prostate, unspecified) Sepsis (A41.9: Sepsis, unspecified organism) UTI (urinary tract infection) (N39.0: Urinary tract infection, site not specified) Orders: acetaminophen + Generic Diluent 100 mL, 1,000 mg = 100 mL, Soln-IV, IV Piggyback, Once, Stop date 01/25/24 14:41:00 EST, STAT, Start date 01/25/24 14:41:00 EST, 400 mL/hr, Infuse over 15 minute(s) ceftriaxone + Sodium Chloride 0.9% intravenous solution 50 mL, 1,000 mg = 1 EA, IV Piggyback, Once, Stop date 01/25/24 16:04:00 EST, STAT, Start date 01/25/24 16:04:00 EST, 100 mL/hr, Infuse over 30 minute(s), 01/25/24 16:04:00 EST Sodium Chloride 0.9% intravenous solution, 1,000 mL, Soln-IV, IV, Once, Stop date 01/25/24 14:40:00 EST, STAT, Start date 01/25/24 14:40:00 EST, Infuse over 61, minute(s) Sodium Chloride 0.9% intravenous solution, 1,000 mL, Soln-IV, IV, Once, Stop date 01/25/24 15:33:00 EST, STAT, Start date 01/25/24 15:33:00 EST, Infuse over 61, minute(s) Comprehensive Metabolic Panel Continuous Pulse Oximetry CT Abdomen/Pelvis w/ Contrast ECG 12 Lead Adult ED Cardiac Monitoring ED Physician consult Hospitalist for continued care Extra SST Tube Extra SST Tube Lactic Acid PT & PTT Troponin XR Chest Single View Extracted from: Title:Admission H & P Author:Christie LEVIN, Ahmad Date:01/25/24 Prostatitis Sepsis Abnormal UA -Blood cultures -Urine cultures -PSA -CT abdomen pelvis negative for abscess -CTX and Vancomycin -Will likely need PICC line and 6 weeks of IV antibiotics -Continue to monitor Chronic Medical Conditions -med rec Time: 55 mins Plan: As above DVT PPX: Heparin Future Appointments Appointment Date:08/01/2024 11:00:00 AM Scheduled Provider:Nadir GARCÍA MD Location:[facility] Appointment Type:URO Office Visit Future Scheduled Tests Laboratory* PSA Total 02/05/24 * PSA Total 02/12/24 * PSA Total 02/19/24 * PSA Total 02/26/24 * PSA Total 03/04/24 * PSA Total 03/11/24 [facility]03-12-2024 NoteAdmission and Discharge Information Admit Date/Time:01/25/2024 18:43 Admitting Physician - Christie LEVIN, Louisa Consulting Physician - Nikita Rodney M.D Admitting Diagnoses: Discharge Order Date Discharge Patient - Ordered -- 01/29/24 9:27:00 EDT, when gets here Discharge Diagnoses Prostatitis, 01/25/2024 Sepsis, 01/25/2024 UTI (urinary tract infection), 01/25/2024 Procedure History Transrectal biopsy of prostate using ultrasound (US) guidance (01/01/2024), Colonoscopy (10/26/2023), Arthroscopy of knee (05/07/2019), ANKLE FRACTURE. Hospital Course 69-year-old male with past medical history of BPH, HLD recent biopsy of prostate done by Dr. Jain 01/01/24 presented to ER on 01/24 due to fever and chills and burning with urination. in ER patientwas found to have white blood cell count of 15.7 with positive UA and elevated PSA. He was recentlyadmitted for similar symptoms and failed outpatient p.o. antibiotics of Levaquin. Patient was admitt ed for further workup and treatment. Infectious disease was consulted and followed patient. Patientwas initially started on cefepime and was later downgraded to Rocephin. Urine culture came back positive for E. coli. 1 out of 2 blood cultures were positive for E. coli same bug as urine. Infectiousdisease recommended 6 weeks of IV antibiotics Rocephin daily with weekly PSA. During stay patient's white blood cell count was trended and returned to within normal limits. Patient was afebrile. Stable at discharge. Medication changes Rocephin 2 g daily for 6-week course until 03/07 PICC line placed 01/27 Follow-up appointments Dr. García 1 to 2 weeks PCP as needed Discharge time was approximately 33 minutes which included extensive conversation with patient as well as about diagnosis and treatment along with communication with consultants, case management, nursing. Services Consulted Consult to Dietitian Adult - Ordered -- 01/28/24 9:55:48 EDT Consult to Infectious Disease Physician - Ordered -- 01/26/24 11:03:00 EST, bacteremia, Consult and Co-manage Physical Exam Vitals & Measurements T: 36.7 ?C(Oral) TMIN: 36.6 ?C(Oral) TMAX: 36.7 ?C(Oral) HR: 52(Monitored) RR: 18 BP: 135/79 SpO2: 96% WT: 81.5 kg General: Looks well, no acute distress, well-nourished, well-kept Skin: Warm, dry Head: No trauma, normocephalic Neck: Trachea midline, supple, negative for JVD Eye: Conjunctive are clear, clear sclera , EOMI ENMT: oral mucosa moist, no lesions or edema nose or external ears Cardiovascular: Regular rate and rhythm, S1-S2 present, negative for murmurs rubs or gallops Respiratory: Lungs clear to auscultation, bilateral symmetric movement, negative for wheezes rales or rhonchi Chest wall: no deformity. Gastrointestinal: Abdomen soft, nontender to palpation, bowel sounds present Back: No tenderness Extremities: Range of motion intact, no edema. PICC line in place LUE Neurological: awake, alert, speech normal, cranial nerves II through XII intact, no sensory defects, alert and oriented x3 Psychiatric: cooperative, affect appropriate for age, pleasant Tests Performed CT Abdomen/Pelvis w/ Contrast CV PICC Line Insertion -- Results Pending -- XR Chest Single View Please visit your patient portal for your results or contact your primary care physician. Discharge Plan Discharge Medication List Prescriptions alfuzosin 10 mg ER Tab, 10 mg= 1 tab(s), Oral, Daily, 11 refills cefTRIAXone 2 g Inj, 2 gm, IV Piggyback, Daily S.A.S (Saline, Administration of drug, Saline), 0 S.A.S.H (saline, Administration of drug, Saline, Heparin), 0 Home latanoprost Opth 0.005% Kena, 1 drop(s), OPTH, Once a day (at bedtime) rosuvastatin 20 mg Tab, 20 mg= 1 tab(s), Oral, Daily Follow-up With When Contact Information DELPHINE BERRY NP Within 5 to [address] [place] [phone]- Business (1) Additional Instructions: Call for followup appointment RICKY LEVIN, GERONIMO Jacobs Within 2 weeks [facility] [address], [place] [address]- Additional Instructions: Call for followup appointment Patient Education PICC Home Care Guide Prostatitis, [id number] Patient will follow-up with Dr. Rodney as outpatient as well.[facility]:Result Comment: Electronically Signed By: Rod Brown DO\.br\Date and Time Signed: 01/29/24 13:36 [id number] Hospital Discharge instructions Patient Education 01/28/2024 11:11:18 PICC Home Care Guide PICC Home Care Guide A peripherally inserted central catheter (PICC) is a form of IV access that allows medicines and IVfluids to be quickly put into the blood and spread throughout the body. The PICC is a long, thin, flexible tube (catheter) that is put into a vein in a person's arm or leg. The catheter ends in a large vein just outside the heart called the superior vena cava (SVC). After the PICC is put in, a chest X-ray may be done to make sure that it is in the right place. A PICC may be placed for different reasons, such as: To give medicines and liquid nutrition. To give IV fluids and blood products. To take blood samples often. If there is trouble placing a peripheral intravenous (PIV) catheter. If cared for properly, a PICC can remain in place for many months. Having a PICC can allow you to go home from the hospital sooner and continue treatment at home. Medicines and PICC care can be managed at home by a family member, caregiver, or home health care team. What are the risks? Generally, having a PICC is safe. However, problems may occur, including: A blood clot (thrombus) forming in or at the end of the PICC. A blood clot forming in a vein (deep vein thrombosis) or traveling to the lung (pulmonary embolism). Inflammation of the vein (phlebitis) in which the PICC is placed. Infection at the insertion site or in the blood. Blood infections from central lines, like PICCs, can be serious and often require a hospital stay. PICC malposition, or PICC movement or poor placement. A break or cut in the PICC. Do not use scissors near the PICC. Nerve or tendon irritation or injury during PICC insertion. How to care for your PICC Please follow the specific guidelines provided by your health care provider. Preventing infection You and any caregivers should wash your hands often with soap and water for at least 20 seconds. Wash hands: ?Before touching the PICC or the infusion device. ?Before changing a bandage (dressing). Do not change the dressing unless you have been taught to doso and have shown you are able to change it safely. Flush the PICC as told. Tell your health care provider right away if the PICC is hard to flush or does not flush. Do not use force to flush the PICC. Use clean and germ-free (sterile) supplies only. Keep the supplies in a dry place. Do not reuse needles, syringes, or any other supplies. Reusing supplies can lead to infection. Keep the PICC dressing dry and secure it with tape if the edges stop sticking to your skin. Check your PICC insertion site every day for signs of infection. Check for: ?Redness, swelling, or pain. ?Fluid or blood. ?Warmth. ?Pus or a bad smell. Preventing other problems Do not use a syringe that is less than 10 mL to flush the PICC. Do not have your blood pressure checked on the arm in which the PICC is placed. Do not ever pull or tug on the PICC. Keep it secured to your arm with tape or a stretch wrap when not in use. Do not take the PICC out yourself. Only a trained health care provider should remove the PICC. Keep pets and children away from your PICC. How to care for your PICC dressing Keep your PICC dressing clean and dry to prevent infection. Do not take baths, swim, or use a hot tub until your health care provider approves. Ask your healthcare provider if you can take showers. You may only be allowed to take sponge baths. When you are allowed to shower: ?Ask your health care provider to teach you how to wrap the PICC. ?Cover the PICC with clear plastic wrap and tape to keep it dry while showering. Follow instructions from your health care provider about how to take care of your insertion site and dressing. Make sure you: ?Wash your hands with soap and water for at least 20 seconds before and after you change your dressing. If soap and water are not available, use hand load builder. ?Change your dressing only if taught to do so by your health care provider. Your PICC dressing needs to be changed if it becomes loose or wet. ?Leave stitches (sutures), skin glue, or adhesive strips in place. These skin closures may need to stay in place for 2 weeks or longer. If adhesive strip edges start to loosen and curl up, you may trim the loose edges. Do not remove adhesive strips completely unless your health care provider tells you to do that. Follow these instructions at home: Disposal of supplies Throw away any syringes in a disposal container that is meant for sharp items (sharps container). You can buy a sharps container from a pharmacy, or you can make one by using an empty, hard plastic bottle with a lid. Place any used dressings or infusion bags into a plastic bag. Throw that bag in the trash. General instructions Always carry your PICC identification card or wear a medical alert bracelet. Keep the tube clamped at all times, unless it is being used. Always carry a smooth-edge clamp with you to clamp the PICC if it breaks. Do not use scissors or sharp objects near the tube. You may bend your arm and move it freely. If your PICC is near or at the bend of your elbow, avoid activity with repeated motion at the elbow. Avoid lifting heavy objects as told by your health care provider. Keep all follow-up visits. This is important. You will need to have your PICC dressing changed at least once a week. Contact a health care provider if: You have pain in your arm, ear, face, or teeth. You have a fever or chills. You have redness, swelling, or pain around the insertion site. You have fluid or blood coming from the insertion site. Your insertion site feels warm to the touch. You have pus or a bad smell coming from the insertion site. Your skin feels hard and raised around the insertion site. Your PICC dressing has gotten wet or is coming off and you have not been taught how to change it. Get help right away if: You have problems with your PICC, such as your PICC: ?Was tugged or pulled and has partially come out. Do not push the PICC back in. ?Cannot be flushed, is hard to flush, or leaks around the insertion site when it is flushed. ?Makes a flushing sound when it is flushed. ?Appears to have a hole or tear. ?Is accidentally pulled all the way out. If this happens, cover the insertion site with a gauze dressing. Do not throw the PICC away. Your health care provider will need to check it to be sure the entire catheter came out. You feel your heart racing or skipping beats, or you have chest pain. You have shortness of breath or trouble breathing. You have swelling, redness, warmth, or pain in the arm in which the PICC is placed. You have a red streak going up your arm that starts under the PICC dressing. These symptoms may be an emergency. Get help right away. Call 911. Do not wait to see if the symptoms will go away. Do not drive yourself to the hospital. Summary A peripherally inserted central catheter (PICC) is a long, thin, flexible tube (catheter) that is put into a vein in the arm or leg. If cared for properly, a PICC can remain in place for many months. Having a PICC can allow you to go home from the hospital sooner and continue treatment at home. The PICC is inserted using a germ-free (sterile) technique by a specially trained health care provider. Only a trained health care provider should remove it. Do not have your blood pressure checked on the arm in which your PICC is placed. Always keep your PICC identification card with you. This information is not intended to replace advice given to you by your health care provider. Make sure you discuss any questions you have with your health care provider. Document Revised: 05/24/2022 Document Reviewed: 05/24/2022 [employer] Patient Education 2022 [employer]. 01/28/2024 11:10:28 Prostatitis, Ayvm-oc-Vgki Prostatitis Prostatitis is swelling of the prostate gland, also called the prostate. This gland is about 1.5 inches wide and 1 inch high, and it helps to make a fluid called semen. The prostate is below a man's bladder, in front of the butt (rectum). There are different types of prostatitis. What are the causes? One type of prostatitis is caused by an infection from germs (bacteria). Another type is not caused by germs. It may be caused by: Things having to do with the nervous system. This system includes thebrain, spinal cord, and nerves. An autoimmune response. This happens when the body's disease-fighting system attacks healthy tissuein the body by mistake. Psychological factors. These have to do with how the mind works. The causes of other types of prostatitis are normally not known. What are the signs or symptoms? Symptoms of this condition depend on the type of prostatitis you have. If your condition is caused by germs: You may feel pain or burning when you pee (urinate). You may pee often and all of a sudden. You may have problems starting to pee. You may have trouble emptying your bladder when you pee. You may have fever or chills. You may feel pain in your muscles, joints, low back, or lower belly. If you have other types of prostatitis: You may pee often or all of a sudden. You may have trouble starting to pee. You may have a weak flow when you pee. You may leak pee after using the bathroom. You may have other problems, such as: ?Abnormal fluid coming from the penis. ?Pain in the testicles or penis. ?Pain between the butt and the testicles. ?Pain when fluid comes out of the penis during sex. How is this treated? Treatment for this condition depends on the type of prostatitis. Treatment may include: Medicines. These may treat pain or swelling, or they may help relax muscles. Exercises to help you move better or get stronger (physical therapy). Heat therapy. Techniques to help you control some of the ways that your body works. Exercises to help you relax. Antibiotic medicine, if your condition is caused by germs. Warm water baths (sitz baths) to relax muscles. Follow these instructions at home: Medicines Take zxkm-chc-lipyiss and prescription medicines only as told by your doctor. If you were prescribed an antibiotic medicine, take it as told by your doctor. Do not stop using the antibiotic even if you start to feel better. Managing pain and swelling Take sitz baths as told by your doctor. For a sitz bath, sit in warm water that is deep enough to cover your hips and butt. If told, put heat on the painful area. Do this as often as told by your doctor. Use the heat sourcethat your doctor recommends, such as a moist heat pack or a heating pad. ?Place a towel between your skin and the heat source. ?Leave the heat on for 20 30 minutes. ?Take off the heat if your skin turns bright red. This is very important if you are unable to feel pain, heat, or cold. You may have a greater risk of getting burned. General instructions Do exercises as told by your doctor, if your doctor prescribed them. Keep all follow-up visits as told by your doctor. This is important. Where to find more information [employer] of Diabetes and Digestive and Kidney Diseases: https://www.niddk.nih.gov Contact a doctor if: Your symptoms get worse. You have a fever. Get help right away if: You have chills. You feel light-headed. You feel like you may faint. You cannot pee. You have blood or clumps of blood (blood clots) in your pee. Summary Prostatitis is swelling of the prostate gland. There are different types of prostatitis. Treatment depends on the type that you have. Take xfir-qmk-icsuceo and prescription medicines only as told by your doctor. Get help right away of you have chills, feel light-headed, or feel like you may faint. Also get help right away if you cannot pee or you have blood or clumps of blood in your pee. This information is not intended to replace advice given to you by your health care provider. Make sure you discuss any questions you have with your health care provider. Document Revised: 12/10/2020 Document Reviewed: 12/10/2020 [employer] Patient Education 2022 [employer]. Follow Up Care 01/25/2024 13:36:40 With:Ronel Clemente, Nikita Daigle, [facility] Address: [address] [place] [address] [place] [address]- When:2 weeks Comments:Call for followup appointment With:Nikita Rodney Address: [facility] [address] [address]- Business (1) When:2 to 4 weeks With:KRISTI MENA DELPHINE Address: [address] [place] [address], [place] [address] Business (1) When:5 to 7 days Comments:Call for followup appointment With:RICKY LEVIN, Nadir Mercado, URL Address: [facility] [address], [place] [address]- When:2 weeks Comments:Call for followup appointment [facility]03-11-2024 NoteMicrobiology PROCEDURE: Blood Culture Charcoal [R1] SOURCE: Blood BODY SITE: Arm L COLLECTED DATE/TIME: 01/25/2024 15:03 EST RECEIVED DATE/TIME: 01/25/2024 15:50 EST START DATE/TIME: 01/25/2024 15:50 EST FREE TEXT SOURCE: lt hasmukh Chacon PA-C, Jaden Chacon PA-C, Jaden FINAL REPORTS Final Report [] Verified Date/Time: 01/28/2024 09:29 EDT Escherichia coli In 1 of 2 blood culture bottles drawn. Isolated from aerobic bottle Preliminary gram stain result of gram negative rods given to Dr. Soriano 01/26/2024 10:57:52 by KD SUSCEPTIBILITY RESULTS LEGEND: S=Susceptible, N/R=Not Reported, Blank=Data not available, or drug not advisable or tested, I=Intermediate, ESBL=Extended spectrum beta-lactamase, R=Resistant, TFG=Thymidine-dependent strain, FRANKY=Beta-lactamase positive, EUGENE=mcg/m;(mg/L), S*=Predicted susceptible interp, R*=Predicted resistant interp EC Antibiotic EUGENE Dilutn EUGENE Interp Amikacin <=16 S Ampicillin >16 R Ampicillin/ >16/8 R Sulbactam Aztreonam <=4 S Cefazolin <=2 S Cefepime <=2 S Cefoxitin <=8 S Ceftazidime <=1 S Ceftazidime/ <=8 S Avibactam Ceftriaxone <=1 S Ciprofloxacin >2 R Ertapenem <=0.5 S Gentamicin <=4 S Levofloxacin >4 R Meropenem <=1 S Piperacillin/ <=16 S Tazobactam Tetracycline <=4 S Tigecycline <=2 S Tobramycin <=4 S Trimethoprim/ <=2/38 S Sulfa Performing Locations R1: This test was performed at: [facility], [address] [place] [address], [id number] , , [facility] HospitalComment on above:Performed By: #### [id number] #### [facility] [address] [place] [address] [id number] NoteBasic Information Admit Date/Time:01/25/2024 18:46 Chief Complaint prostate biopsy with dr garcía in mid december. hospitalized with sepsis a few weeks ago. chills and fever. burning urination History of Present Illness 59 y/o M w/mhx of s/p transurethral biopsy on 01/01/24. Was recently discharged on 01/07/24 w/two weeks worth of Levaquin and now comes back in and he was complaining of fevers and chills and malaise. He denies any nausea, vomiting, penile discharge, recent trauma. Nothing makes it better nothing makes it worse. He states that he is a full code. He dines tobacco smoking, alcohol, or recreational drugs. Review of Systems Constitutional: Deniesany complaints Eyes: Deniesloss of vision Ear, nose, mouth, throat: Deniesdifficulty swallowing Cardiovascular: Denieschest pain; denies calf pain, pressure, or edema. Respiratory: Deniesshortens of breath on exertion. Gastrointestinal: Deniesnausea and diarrhea. Urinary: Deniesincontinence, frequency, urgency, nocturia, pain, or discomfort. Skin: Deniesskin rash Neurological: Deniesnumbness, tingling, and tremors Psychiatric: Deniesmemory loss or depression. Mood pleasant. Scoring Todd Fall Risk Score: 35 (01/25/24) Physical Exam Vitals & Measurements T: 36.8 ?C(Oral) TMIN: 36.8 ?C(Oral) TMAX: 38.4 ?C(Oral) HR: 75(Monitored) RR: 18 BP: 131/76 SpO2: 95% HT: 178 cm WT: 86.6 kg General: alert, no acute distress Psychiatric: cooperative, affect appropriate for age Neurological: awake, alert, oriented, speech normal Cardiovascular: no overt murmurs Respiratory: no adventitious breath sounds Gastrointestinal: soft NT, NG, NR Extremities: no rash Lab Results WBC: 15.7 E9/L High (01/25/24 14:51:00) RBC: 4.6 E12/L (01/25/24 14:51:00) HGB: 14.6 gm/dL (01/25/24 14:51:00) Hct: 42.9 % (01/25/24 14:51:00) MCV: 92.8 fL (01/25/24 14:51:00) MCH: 31.6 pg (01/25/24 14:51:00) MCHC: 34 gm/dL (01/25/24 14:51:00) RDW: 12.8 % (01/25/24 14:51:00) Platelet: 143 E9/L Low (01/25/24 14:51:00) MPV: 8.6 fL (01/25/24 14:51:00) Neutro Auto: 87.9 % High (01/25/24 14:51:00) Lymph Auto: 5 % Low (01/25/24 14:51:00) Stevens Auto: 6.8 % (01/25/24 14:51:00) Eos Auto: 0.2 % (01/25/24 14:51:00) Basophil Auto: 0.1 % (01/25/24 14:51:00) Neutro Absolute: 13.8 E9/L High (01/25/24 14:51:00) Lymph Absolute: 0.8 E9/L Low (01/25/24 14:51:00) Stevens Absolute: 1.1 E9/L High (01/25/24 14:51:00) Eos Absolute: 0 E9/L (01/25/24 14:51:00) Basophil Absolute: 0 E9/L (01/25/24 14:51:00) PT: 11.3 second(s) (01/25/24 14:51:00) INR: 1.01 (01/25/24 14:51:00) PTT: 30.5 second(s) (01/25/24 14:51:00) Glucose Lvl: 95 mg/dL (01/25/24 14:51:00) Glucose Lvl: 95 mg/dL (01/25/24 14:51:00) BUN: 17 mg/dL (01/25/24 14:51:00) BUN: 17 mg/dL (01/25/24 14:51:00) Creatinine: 0.9 mg/dL (01/25/24 14:51:00) Creatinine: 0.9 mg/dL (01/25/24 14:51:00) eGFR: 100 mL/min/1.73 m2 (01/25/24 14:51:00) BUN/Creat Ratio: 19 (01/25/24 14:51:00) BUN/Creat Ratio: 19 (01/25/24 14:51:00) Sodium Lvl: 137 mmol/L (01/25/24 14:51:00) Sodium Lvl: 137 mmol/L (01/25/24 14:51:00) Potassium Lvl: 3.9 mmol/L (01/25/24 14:51:00) Potassium Lvl: 3.9 mmol/L (01/25/24 14:51:00) Chloride: 100 mmol/L Low (01/25/24 14:51:00) Chloride: 100 mmol/L Low (01/25/24 14:51:00) CO2: 28 mmol/L (01/25/24 14:51:00) CO2: 28 mmol/L (01/25/24 14:51:00) AGAP: 13 mEq/L (01/25/24 14:51:00) AGAP: 13 mEq/L (01/25/24 14:51:00) Calcium Lvl: 9.8 mg/dL (01/25/24 14:51:00) Calcium Lvl: 9.8 mg/dL (01/25/24 14:51:00) Alk Phos: 55 Int._Unit/L (01/25/24 14:51:00) ALT: 21 Int._Unit/L (01/25/24 14:51:00) AST: 18 Int._Unit/L (01/25/24 14:51:00) Total Protein: 7 gm/dL (01/25/24 14:51:00) Albumin Lvl: 4.6 gm/dL (01/25/24 14:51:00) Globulin: 2.4 gm/dL (01/25/24 14:51:00) A/G Ratio: 1.9 (01/25/24 14:51:00) Bili Total: 0.9 mg/dL (01/25/24 14:51:00) Lactic Acid Lvl: 1.8 mmol/L (01/25/24 14:51:00) Troponin: 5 pg/mL Low (01/25/24 14:51:00) UA Spec Desc: Clean Catch (01/25/24 14:05:00) UA Color: STRAW (01/25/24 14:05:00) UA Clarity: Cloudy2 Abnormal (01/25/24 14:05:00) UA Spec Grav: <=1.005 (01/25/24 14:05:00) UA pH: 6.0 (01/25/24 14:05:00) UA Protein: 1+ Abnormal (01/25/24 14:05:00) UA Glucose: NEGATIVE1 (01/25/24 14:05:00) UA Ketones: NEGATIVE1 (01/25/24 14:05:00) UA Bili: NEGATIVE1 (01/25/24 14:05:00) UA Blood: 3+ Abnormal (01/25/24 14:05:00) UA Nitrite: NEGATIVE1 (01/25/24 14:05:00) UA Urobilinogen: 0.2 (01/25/24 14:05:00) UA Leuk Est: 3+ Abnormal (01/25/24 14:05:00) UA RBC: 21-30 Abnormal (01/25/24 14:05:00) UA Squam Epithelial: 0-2 (01/25/24 14:05:00) UA WBC: >75 Abnormal (01/25/24 14:05:00) UA Bacteria: 1+ Abnormal (01/25/24 14:05:00) Assessment/Plan Prostatitis Sepsis Abnormal UA -Blood cultures -Urine cultures -PSA -CT abdomen pelvis negative for abscess -CTX and Vancomycin -Will likely need PICC line and 6 weeks of IV antibiotics -Continue to monitor Chronic Medical Conditions -med rec (more content not included)...[facility]Comment on above:Result Comment: Electronically Signed By: Christie LEVIN, Louisa\.br\Date and Time Signed: 01/25/24 19:22 [id number] Hospital Discharge instructions Patient Education 01/18/2024 11:33:02 Prostatitis Prostatitis Prostatitis is swelling or inflammation of the prostate gland, also called the prostate. This glandis about 1.5 inches wide and 1 inch high, and it is involved in making semen. The prostate is located below a man's bladder, in front of the rectum. There are four types of prostatitis: Chronic prostatitis (CP), also called chronic pelvic pain syndrome (CPPS). This is the most common type of prostatitis. It is associated with increased muscle tone in the area between the hip bones (pelvic area), around the prostate. This type is also known as a pelvic floor disorder. Chronic bacterial prostatitis. This type usually results from an acute bacterial infection in the prostate gland that keeps coming back or has not been treated properly. The symptoms are less severe than those caused by acute bacterial prostatitis, which lasts a shorter time. Asymptomatic inflammatory prostatitis. This type does not have symptoms and does not need treatment. This is diagnosed when tests are done for other disorders of the urinary tract or reproductive tract. Acute bacterial prostatitis. This type starts quickly and results from an acute bacterial infectionin the prostate gland. It is usually associated with a bladder infection, high fever, and chills. This is the least common type of prostatitis. What are the causes? Bacterial prostatitis is caused by an infection from bacteria. Chronic nonbacterial prostatitis may be caused by: Factors related to the nervous system. This system includes thebrain, spinal cord, and nerves. An autoimmune response. This happens when the body's disease-fighting system attacks healthy tissuein the body by mistake. Psychological factors. These have to do with how the mind works. The causes of the other types of prostatitis are usually not known. What are the signs or symptoms? Symptoms of this condition depend on the type of prostatitis you have. Acute bacterial prostatitis Symptoms may include: Pain or burning during urination. Frequent and sudden urges to urinate. Trouble starting to urinate. Fever. Chills. Pain in your muscles or joints, lower back, or lower abdomen. Other types of prostatitis Symptoms may include: Sudden urges to urinate, or urinating often. Trouble starting to urinate. Weak urine stream. Dribbling after urination. Discharge coming from the penis. Pain in the testicles, the penis, or the tip of the penis. Pain in the area in front of the rectum and below the scrotum (perineum). Pain when ejaculating. How is this diagnosed? This condition may be diagnosed based on: A physical and medical exam. A digital rectal exam. For this, the health care provider may use a finger to feel the prostate. A urine test to check for bacteria. A semen sample or blood tests. Ultrasound. Urodynamic tests to check how your body handles urine. Cystoscopy to look inside your bladder or inside the part of your body that drains urine from the bladder (urethra). How is this treated? Treatment for this condition depends on the type of prostatitis. Treatment may involve: Medicines to relieve pain or inflammation, or to help relax your muscles. Physical therapy. Heat therapy. Biofeedback. These techniques help you control certain body functions. Relaxation exercises. Antibiotic medicine, if your condition is caused by bacteria. Sitz baths. These warm water baths help to relax your pelvic floor muscles, which helps to relieve pressure on the prostate. Follow these instructions at home: Medicines Take jkce-hdl-sghqeje and prescription medicines only as told by your health care provider. If you were prescribed an antibiotic medicine, take it as told by your health care provider. Do notstop using the antibiotic even if you start to feel better. Managing pain and swelling Take sitz baths as directed by your health care provider. For a sitz bath, sit in warm water that is deep enough to cover your hips and buttocks. If directed, apply heat to the affected area as often as told by your health care provider. Use theheat source that your health care provider recommends, such as a moist heat pack or a heating pad. ?Place a towel between your skin and the heat source. ?Leave the heat on for 20 30 minutes. ?Remove the heat if your skin turns bright red. This is especially important if you are unable to feel pain, heat, or cold. You may have a greater risk of getting burned. General instructions Do exercises as told by your health care provider, if you were prescribed physical therapy, biofeedback, or relaxation exercises. Keep all follow-up visits as told by your health care provider. This is important. Where to find more information [employer] of Diabetes and Digestive and Kidney Diseases: https://www.niddk.nih.gov Contact a health care provider if: Your symptoms get worse. You have a fever. Get help right away if: You have chills. You feel light-headed or feel like you may faint. You cannot urinate. You have blood or blood clots in your urine. Summary Prostatitis is swelling or inflammation of the prostate gland. Treatment for this condition depends on the type of prostatitis. Take jzwq-hti-xhwwtjc and prescription medicines only as told by your health care provider. Get help right away of you have chills, feel light-headed, feel like you may faint, cannot urinate,or have blood or blood clots in your urine. This information is not intended to replace advice given to you by your health care provider. Make sure you discuss any questions you have with your health care provider. Document Revised: 12/10/2020 Document Reviewed: 12/10/2020 [employer] Patient Education 2022 [employer]. Follow Up Care 12/10/2023 12:59:15 With:Nadir GARCÍA MD, URL Address: [address] [place] [address]- When: Unknown [facility] Mandeep 02-23-2024 NoteMicrobiology PROCEDURE: Blood Culture Charcoal [R1] SOURCE: Blood BODY SITE: Arm R COLLECTED DATE/TIME: 01/04/2024 16:20 EST RECEIVED DATE/TIME: 01/04/2024 16:44 EST START DATE/TIME: 01/04/2024 16:44 EST FREE TEXT SOURCE: Daniel Espinoza PA-C. Daniel Espinoza PA-C. FINAL REPORTS Final Report [] Verified Date/Time: 01/11/2024 18:00 EST No growth at 7 days. Performing Locations R1: This test was performed at: [facility] [facility], [address] [place] [address], [id number] [place] [address], Urmlho[address] Campbell StreetComment on above:Performed By: #### [id number], [id number], [id number] #### [facility] [address] [place] [address] [id number] NoteMicrobiology PROCEDURE: Blood Culture Charcoal [R1] SOURCE: Blood BODY SITE: Arm L COLLECTED DATE/TIME: 01/04/2024 16:28 EST RECEIVED DATE/TIME: 01/04/2024 16:44 EST START DATE/TIME: 01/04/2024 16:44 EST FREE TEXT SOURCE: Daniel Espinoza PA-C. Daniel Espinoza PA-C. FINAL REPORTS Final Report [] Verified Date/Time: 01/11/2024 18:00 EST No growth at 7 days. Performing Locations R1: This test was performed at: [facility], [address] [place] [address], [id number] [place] [address], [address] [place], [place] [address]Comment on above:Performed By: #### [id number], [id number] #### [facility] [address] [place], [place] [id number] Evaluation + Plan noteExtracted from: Title:ED Note Author:Amauri Tran DO Date: Superficial thrombophlebitis (I80.9: Phlebitis and thrombophlebitis of unspecified site) Orders: cephalexin, 500 mg = 1 cap(s), Oral, QID, X 7 day(s), # 28 cap(s), Refills(s) 0, Pharmacy: [id number], [id number], cm, 01/10/24 10:05:00 EST, Height/Length Dosing, 82.6, kg, 01/10/24 10:05:00 EST, Weight Dosing Future Appointments Appointment Date:01/18/2024 11:00:00 AM Scheduled Provider:Nadir GARCÍA MD Location:[facility] Appointment Type:URO Office Visit [facility]02-22-2024 Hospital Discharge instructions Patient Education 01/10/2024 11:07:24 Thrombophlebitis Thrombophlebitis Thrombophlebitis is a condition in which a blood clot and inflammation occur inside a vein. This can happen in the arms, legs, or torso. Thrombophlebitis may involve superficial veins, deep veins, orboth. Superficial veins are close to the surface of the body and are part of the superficial venoussystem. Veins that are deeper inside the body are part of the deep venous system. When this condition happens in a superficial vein (superficial thrombophlebitis), it is usually notserious.However, when the condition happens in a vein that is part of the deep venous system (deep vein thrombosis, DVT), it can cause serious problems. What are the causes? This condition may be caused by: Infection, injury, or trauma to a vein. Inflammation of the veins. Medical conditions that can cause blood to clot more easily (hypercoagulable state). Backing up, or reflux, of blood flow through the veins (chronic venous insufficiency or venous stasis). What increases the risk? The following factors may make you more likely to develop this condition: Having a long, thin tube (catheter) put in a vein, such as a central line, port, or IV catheter. Getting certain medicines through a catheter that can irritate the vein. or having recently given . Cancer. Obesity. Taking oral contraceptive pills (OCPs) or hormone therapy (HT) medicines. Spasms of veins. Immobilization, or not moving the limbs for prolonged periods. What are the signs or symptoms? The main symptoms of this condition are: Swelling and pain in an arm or leg. If the affected vein is in the leg, you may feel pain while standing or walking. Warmth or redness in an arm or leg. Tenderness in the affected area when it is touched. Other symptoms include: Low-grade fever. Muscle aches. A bulging or hard vein (venous distension). In some cases, there are no symptoms. How is this diagnosed? This condition may be diagnosed based on: Your symptoms and medical history. A physical exam. Tests, such as a test that uses sound waves to make images (duplex ultrasound). How is this treated? Treatment depends on how severe the condition is and which area of the body is affected. Treatment may include: Applying a warm compress or heating pad to affected areas. This may need to be repeated several times a day. Moving the affected limb. For example, you may need to start doing walking exercises right away. You will also be encouraged to continue your usual daily activities. Raising (elevating) the affected arm or leg above the level of your heart. Medicines, such as: ?Anti-inflammatory medicines, such as ibuprofen. ?Blood thinners (anticoagulants) or anti-platelet drugs such as aspirin. Removing an IV or central line that may be causing the problem. Wearing compression stockings to help prevent blood clots and reduce swelling in your legs. Follow these instructions at home: Medicines Take hhkt-iou-zmgyeex and prescription medicines only as told by your health care provider. If you are taking blood thinners: ?Talk with your health care provider before you take any medicines that contain aspirin or NSAIDs, such as ibuprofen. These medicines increase your risk for dangerous bleeding. ?Take your medicine exactly as told, at the same time every day. ?Avoid activities that could cause injury or bruising, and follow instructions about how to preventfalls. ?Wear a medical alert bracelet or carry a card that lists what medicines you take. Managing pain, stiffness, and swelling If directed, apply heat to the affected area as often as told by your health care provider. Use theheat source that your health care provider recommends, such as a moist heat pack or a heating pad. ?Place a towel between your skin and the heat source. ?Leave the heat on for 20 30 minutes. ?Remove the heat if your skin turns bright red. This is especially important if you are unable to feel pain, heat, or cold. You have a greater risk of getting burned. Elevate the affected area above the level of your heart while you are sitting or lying down. Activity Return to your normal activities as told by your health care provider. Ask your health care provider what activities are safe for you. Avoid sitting for a long time without moving. Get up to take short walks every 1 2 hours. This is important to improve blood flow and breathing. Ask for help if you feel weak or unsteady. Do exercises as told by your health care provider. Rest as told by your health care provider. General instructions Drink enough fluid to keep your urine pale yellow. Wear compression stockings as told by your health care provider. Do not use any products that contain nicotine or tobacco. These products include cigarettes, chewing tobacco, and vaping devices, such as e-cigarettes. If you need help quitting, ask your health careprovider. Keep all follow-up visits. This is important. Contact a health care provider if: You miss a dose of your blood thinner, if applicable. Your symptoms do not improve. You have unusual bruising. You have nausea, vomiting, or diarrhea that lasts for more than a day. Get help right away if: You are breathing fast or have chest pain. You have blood in your vomit, urine, or stool. You have severe pain in your affected arm or leg or new pain in any arm or leg. You have light-headedness, dizziness, a severe headache, or confusion. These symptoms may represent a serious problem that is an emergency. Do not wait to see if the symptoms will go away. Get medical help right away. Call your local emergency services (911 in the [place] Do not drive yourself to the hospital. Summary Thrombophlebitis is a condition in which a blood clot forms in a vein, causing inflammation and often pain. This can happen in both superficial and deep veins. The main symptom of this condition is swelling and pain around the affected vein. Tenderness and redness may also be present. Treatment may include warm compresses, compression stockings, anti-inflammatory medicines, or bloodthinners. Make sure you take all medicines, especially blood thinners, as instructed and keep all follow-up visits to ensure proper healing of the vein. This information is not intended to replace advice given to you by your health care provider. Make sure you discuss any questions you have with your health care provider. Document Revised: 05/01/2022 Document Reviewed: 05/01/2022 [employer] Patient Education 2022 [employer]. Follow Up Care 01/10/2024 09:55:08 With:DELPHINE BERRY Address:Unknown When:01/13/2024 11:06:51 Comments:Call the office of your primary care doctor to arrange for follow-up within the above-stated timeframe. Follow-up with your primary care doctor about this ED visit. You should review your labs, imaging, and diagnoses from this ED visit with your primary care physician. There are occasionally non-emergent findings that require additional follow-up after your ED visit. If you were prescribed medications you should discuss possible side-effects and drug interactions with your pharmacist. Call 911 or go to the nearest Emergency Department if you develop any new or worsening symptoms. [facility]02-19-2024 Evaluation + Plan noteExtracted from: Title:Discharge Note Author:Christie LEVIN, Louisa Burgos ate:01/07/24 Stable Discharge To, Anticipated II - Home independently Transported by, Anticipated - Family Discharge Diet(s): Regular (01/07/24 10:51:00) Prescriptions alfuzosin 10 mg ER Tab, 10 mg= 1 tab(s), Oral, Daily, 11 refills Levaquin 750 mg Tab, 750 mg= 1 tab(s), Oral, q24hr Home latanoprost Opth 0.005% Kena, 1 drop(s), OPTH, Once a day (at bedtime) rosuvastatin 20 mg Tab, 20 mg= 1 tab(s), Oral, Daily With When Contact Information Nadir GARCÍA [facility] [address], [place] [address]- Business (1) Additional Instructions: DELPHINE BERRY In 0 days Additional Instructions: Extracted from: Title:Inpatient Consultation-Floor Code* Author: Marvel Patel MD Date:01/06/24 Impression and Plan -acute prostatitis s/p pnbx last week BLD CX STILL PENDING BUT IMPROVED OVERALL FROM CHART REVIEW. WOULD TX W/ IV ABX UNTIL SUNDAY AND THEN LIKELY HOME. IF CULTURES ARE NEGATIVE, STILL NEEDS TO BE TX A.PROSTATITIS W/ 2 WEEKS ABX. QUESTION OF WHICH ABX W/O POSITIVE CULTURES AND WOULD TYPICALLY REC 3RD GEN CEPH OR LEVAQUIN. I AM UNSURE WHICH ABX WAS GIVEN TO PT AROUND TIME OF PNBX AND WILL NEED TO CHECK W/ [facility] SUNDAY THIS WILL WEIGH IN ON FINAL ABX SELECTION. Extracted from: Title:APSO Note Author:Liz Figueroa Date:01/06/24 1. Sepsis (A41.9: Sepsis, un specified organism) 2/2 prostatitis Improved, continue to monitor WBC was 14.6 on admission (01/04), trending down and at 6.8 on 01/06 Awaiting blood cultures Continue Meropenem 01/04 Will likely need 2 weeks of IV antibiotics or p.o. antibiotics depending on urine culture 2. Prostatitis (N41.9: Inflammatory disease of prostate, unspecified) 2/2 to above ucx pending Urology consulted and following 3. BPH with urinary obstruction (N40.1: Benign prostatic hyperplasia with lower urinary tract symptoms) Urology consulted and following 4. Hyperlipemia (E78.5: Hyperlipidemia, unspecified) Rosuvastatin 5. Glaucoma (H40.9: Unspecified glaucoma) Continue drops Extracted from: Title:Inpatient Consultation-Floor Code* Author: Marvel Patel MD Date:01/05/24 Impression and Plan -acute prostatitis s/p pnbx 01/01/24 -? uti -[facility] [place] continue merem for now and anticipate will need abx x 2 weeks. Await final cultures to decide on final abx. will follow Extracted from: Title:APSO Note Author:Liz Figueroa Date:01/05/24 1. Sepsis (A41.9: Sepsis, un specified organism) 2/2 prostatitis Improved, continue to monitor WBC was 14.6 on admission (01/04), trending down and at 11.3 on 01/05 Awaiting blood cultures Continue Meropenem 01/04 Will likely need 2 weeks of IV antibiotics or p.o. antibiotics depending on urine culture 2. Prostatitis (N41.9: Inflammatory disease of prostate, unspecified) 2/2 to above ucx pending Urology consulted and following 3. BPH with urinary obstruction (N40.1: Benign prostatic hyperplasia with lower urinary tract symptoms) Neurology consulted and following 4. Hyperlipemia (E78.5: Hyperlipidemia, unspecified) Rosuvastatin 5. Glaucoma Continue drops Extracted from: Title:Admission H & P Author:Ramseh zamora Cici Hilary Date:01/04/24 DVT prophylaxis PAS b/l Diet regular diet CODE STATUS full code Will be admitted under patient status due to estimated length of stay greater than 2 midnights. All imaging, EKGs, labs were reviewed 1. Sepsis (A41.9: Sepsis, unspecified organism) 2/2 prostatitis meets Sirs monitor temp had wbc elevation on admission with temp Awaiting blood cultures Start Meropenem 01/04 2. Prostatitis (N41.9: Inflammatory disease of prostate, unspecified) 2/2 to above ucx pending 3. BPH with urinary obstruction (N40.1: Benign prostatic hyperplasia with lower urinary tract symptoms) Consult Urology 4. Hyperlipemia (E78.5: Hyperlipidemia, unspecified) Rosuvastatin Addendum by Juan David Brown DO, am on January 04, 2024 19:25:33 EST I was present with the MYRIAM zamora for the service. I personally verified the history of present illness and performed the physical examination and medical decision making. I have verified all of the MYRIAM zamora's documentation for this encounter. Future Appointments Appointment Date:01/18/2024 11:00:00 AM Scheduled Provider:Nadir GARCÍA MD Location:[facility] Appointment Type:URO Office Visit [facility]02-19-2024 Hospital Discharge instructions Patient Education 01/07/2024 11:39:36 Prostatitis Prostatitis Prostatitis is swelling or inflammation of the prostate gland, also called the prostate. This glandis about 1.5 inches wide and 1 inch high, and it is involved in making semen. The prostate is located below a man's bladder, in front of the rectum. There are four types of prostatitis: Chronic prostatitis (CP), also called chronic pelvic pain syndrome (CPPS). This is the most common type of prostatitis. It is associated with increased muscle tone in the area between the hip bones (pelvic area), around the prostate. This type is also known as a pelvic floor disorder. Chronic bacterial prostatitis. This type usually results from an acute bacterial infection in the prostate gland that keeps coming back or has not been treated properly. The symptoms are less severe than those caused by acute bacterial prostatitis, which lasts a shorter time. Asymptomatic inflammatory prostatitis. This type does not have symptoms and does not need treatment. This is diagnosed when tests are done for other disorders of the urinary tract or reproductive tract. Acute bacterial prostatitis. This type starts quickly and results from an acute bacterial infectionin the prostate gland. It is usually associated with a bladder infection, high fever, and chills. This is the least common type of prostatitis. What are the causes? Bacterial prostatitis is caused by an infection from bacteria. Chronic nonbacterial prostatitis may be caused by: Factors related to the nervous system. This system includes thebrain, spinal cord, and nerves. An autoimmune response. This happens when the body's disease-fighting system attacks healthy tissuein the body by mistake. Psychological factors. These have to do with how the mind works. The causes of the other types of prostatitis are usually not known. What are the signs or symptoms? Symptoms of this condition depend on the type of prostatitis you have. Acute bacterial prostatitis Symptoms may include: Pain or burning during urination. Frequent and sudden urges to urinate. Trouble starting to urinate. Fever. Chills. Pain in your muscles or joints, lower back, or lower abdomen. Other types of prostatitis Symptoms may include: Sudden urges to urinate, or urinating often. Trouble starting to urinate. Weak urine stream. Dribbling after urination. Discharge coming from the penis. Pain in the testicles, the penis, or the tip of the penis. Pain in the area in front of the rectum and below the scrotum (perineum). Pain when ejaculating. How is this diagnosed? This condition may be diagnosed based on: A physical and medical exam. A digital rectal exam. For this, the health care provider may use a finger to feel the prostate. A urine test to check for bacteria. A semen sample or blood tests. Ultrasound. Urodynamic tests to check how your body handles urine. Cystoscopy to look inside your bladder or inside the part of your body that drains urine from the bladder (urethra). How is this treated? Treatment for this condition depends on the type of prostatitis. Treatment may involve: Medicines to relieve pain or inflammation, or to help relax your muscles. Physical therapy. Heat therapy. Biofeedback. These techniques help you control certain body functions. Relaxation exercises. Antibiotic medicine, if your condition is caused by bacteria. Sitz baths. These warm water baths help to relax your pelvic floor muscles, which helps to relieve pressure on the prostate. Follow these instructions at home: Medicines Take opaj-mlu-nxusoml and prescription medicines only as told by your health care provider. If you were prescribed an antibiotic medicine, take it as told by your health care provider. Do notstop using the antibiotic even if you start to feel better. Managing pain and swelling Take sitz baths as directed by your health care provider. For a sitz bath, sit in warm water that is deep enough to cover your hips and buttocks. If directed, apply heat to the affected area as often as told by your health care provider. Use theheat source that your health care provider recommends, such as a moist heat pack or a heating pad. ?Place a towel between your skin and the heat source. ?Leave the heat on for 20 30 minutes. ?Remove the heat if your skin turns bright red. This is especially important if you are unable to feel pain, heat, or cold. You may have a greater risk of getting burned. General instructions Do exercises as told by your health care provider, if you were prescribed physical therapy, biofeedback, or relaxation exercises. Keep all follow-up visits as told by your health care provider. This is important. Where to find more information [employer] of [employer] and Digestive and Kidney Diseases: https://www.niddk.nih.gov Contact a health care provider if: Your symptoms get worse. You have a fever. Get help right away if: You have chills. You feel light-headed or feel like you may faint. You cannot urinate. You have blood or blood clots in your urine. Summary Prostatitis is swelling or inflammation of the prostate gland. Treatment for this condition depends on the type of prostatitis. Take bzba-ukx-xagqubm and prescription medicines only as told by your health care provider. Get help right away of you have chills, feel light-headed, feel like you may faint, cannot urinate,or have blood or blood clots in your urine. This information is not intended to replace advice given to you by your health care provider. Make sure you discuss any questions you have with your health care provider. Document Revised: 12/10/2020 Document Reviewed: 12/10/2020 [employer] Patient Education 2022 [employer]. Follow Up Care 01/04/2024 15:26:00 With:Nadir GARCÍA Address: [facility] [address] [place] [address] [facility] (1) When: Unknown Comments:Call for followup appointment With:DELPHINE BERRY Address:Unknown When: Unknown Comments:Call for followup appointment [facility]02-19-2024 NoteAdmission and Discharge Information Admit Date/Time:01/04/2024 17:09 Admitting Physician - Rod Brown DO Consulting Physician - Amanda LEVIN, Marvel Morton Admitting Diagnoses: Discharge Diagnoses 1. Sepsis, 01/04/2024 2. Prostatitis, 01/04/2024 3. BPH with urinary obstruction, 01/04/2024 4. Hyperlipemia, 01/04/2024 5. Glaucoma, 01/06/2024 Fever, 01/04/2024 Hematuria, 01/04/2024 Post surgical problem, 01/04/2024 Procedure History Colonoscopy (10/26/2023), Arthroscopy of knee (05/07/2019), ANKLE FRACTURE. Hospital Course This is a 58 y/o M that was admitted for what was ultimately believed to be prostatitis. He recently had a prostate biopsy. He will be sent home w/Levaquin 750mg once daily for 2 weeks. He does have an upcoming trip to [place] and was instructed not to consume alcohol while taking antibiotics. Hewas seen in consultation w/Urology who agreed rec antibiotic duration and antibiotic. He can followup w/his Urologist. His cultures where no growth to date. - New Medications/Medication Adjustments -Levaquin 750 mg once daily for 2 weeks - On day of discharge patient was vitally, hemodynamically clinically stable. Patient verbalized understanding and agreement with above. Discussed medication changes with patient. A good nichole effort was made to discuss the above with the patient. Teach back method was used when discussing plan and need for referrals with patients. - Follow Up Patient is to follow up with Urology Patient is to follow up with PCP for transition of care - Discharge Instructions: Given Discharge Medications: Reviewed Discharge Status: Improved Discharge disposition: Stable - Prescriptions reviewed with Patient - 32 minutes time spent in discharge timing. Services Consulted Consult to Urology - Ordered -- 01/04/24 19:20:00 EST, recent prostate bx, infection, Consult and Co-manage Physical Exam Vitals & Measurements T: 36.8 ?C(Oral) TMIN: 36.5 ?C(Oral) TMAX: 36.9 ?C(Oral) HR: 65(Monitored) RR: 18 BP: 133/85 SpO2: 99% WT: 87.9 kg General: alert, no acute distress Psychiatric: cooperative, affect appropriate for age Neurological: awake, alert, oriented, speech normal Cardiovascular: no overt murmurs Respiratory: no adventitious breath sounds Gastrointestinal: soft NT, NG, NR Extremities: no rash Tests Performed XR Chest Single View Discharge Plan Patient Discharge Condition Stable Discharge Disposition Discharge To, Anticipated II - Home independently Transported by, Anticipated - Family Discharge Diet Discharge Diet(s): Regular (01/07/24 10:51:00) Discharge Medication List Prescriptions alfuzosin 10 mg ER Tab, 10 mg= 1 tab(s), Oral, Daily, 11 refills Levaquin 750 mg Tab, 750 mg= 1 tab(s), Oral, q24hr Home latanoprost Opth 0.005% Kena, 1 drop(s), OPTH, Once a day (at bedtime) rosuvastatin 20 mg Tab, 20 mg= 1 tab(s), Oral, Daily Follow-up With When Contact Information Nadir GARCÍA [facility] [address], [place] [address]- Business(1) Additional Instructions: DELPHINE BERRY In 0 days [facility]Result Comment: Electronically Signed By: Christie LEVIN, Louisa\.br\Date and Time Signed: 01/07/24 10:53 [id number] NoteBasic Information Admit Date/Time:01/04/2024 17:09 Chief Complaint difficulty urinating. biopsy of prostate by ricky. Pt now has fever and has hematuria History of Present Illness 58 y/o male with PMH significant for hyperlipidemia and BPH who recently underwent a transrectal USand guided biopsy of the prostate on 01/01. He was instructed to report to the ED for concerns of sepsis. Patient states that starting on 01/03 he began to experience cold-like symptoms. Patient had toleave work due to them. He states he had uncontrollable chills, fever, and aches. He has had a decreased appetite. Patient states his oral at home temperature was around 101F. Since surgery, he has been experiencing hematuria which he states has been constant. He denies any changes in frequency, dysuria, chest pain, shortness of breath, nausea, or vomiting. Patient denies any tobacco use. Occasional social drinker. Chest XR was negative. EKG revealed sinus rhythm. CBC showed WBC of 14.6. CMP Na+ of 133. Blood cultures obtained. Patient was started on meropenem and given acetaminophen in the ED. Discussed code status with the patient. He would like to be full-code. Review of Systems as stated in HPI Scoring Todd Fall Risk Score: 0 (01/04/24) Physical Exam Vitals & Measurements T: 38.0 ?C(Oral) TMIN: 38.0 ?C(Oral) TMAX: 38.3 ?C(Oral) HR: 84(Monitored) RR: 18 BP: 106/70 SpO2: 95% HT: 178 cm WT: 83.6 kg General: Looks well, no acute distress, well-nourished, well-kept Skin: Warm, dry Head: No trauma, normocephalic Neck: Trachea midline, supple, negative for JVD Eye: Conjunctive are clear, clear sclera , EOMI ENMT: oral mucosa moist, no lesions or edema nose or external ears Cardiovascular: Regular rate and rhythm, S1-S2 present, negative for murmurs rubs or gallops Respiratory: Lungs clear to auscultation, bilateral symmetric movement, negative for wheezes rales or rhonchi Chest wall: no deformity. Gastrointestinal: Abdomen soft, nontender to palpation, bowel sounds present Back: No tenderness Extremities: Range of motion intact, no edema Neurological: awake, alert, speech normal, cranial nerves II through XII intact, no sensory defects, alert and oriented x3 Psychiatric: cooperative, affect appropriate for age, pleasant Lab Results WBC: 14.6 E9/L High (01/04/24 16:20:00) RBC: 4.8 E12/L (01/04/24 16:20:00) HGB: 15.5 gm/dL (01/04/24 16:20:00) Hct: 44 % (01/04/24 16:20:00) MCV: 92.3 fL (01/04/24 16:20:00) MCH: 32.4 pg (01/04/24:20:00) MCHC: 35.1 gm/dL (01/04/24:20:00) RDW: 12.7 % (01/04/24:20:00) Platelet: 130 E9/L Low (01/04/24:20:00) MPV: 8 fL (01/04/24:20:00) Neutro Auto: 85.3 % High (01/04/24 16:20:00) Lymph Auto: 6.3 % Low (01/04/24 16:20:00) Stevens Auto: 8.3 % (01/04/24 16:20:00) Eos Auto: 0 % (01/04/24 16:20:00) Basophil Auto: 0.1 % (01/04/24 16:20:00) Neutro Absolute: 12.5 E9/L High (01/04/24 16:20:00) Lymph Absolute: 0.9 E9/L Low (01/04/24 16:20:00) Stevens Absolute: 1.2 E9/L High (01/04/24 16:20:00) Eos Absolute: 0 E9/L (01/04/24 16:20:00) Basophil Absolute: 0 E9/L (01/04/24:20:00) PT: 15.9 second(s) High (01/04/24 16:20:00) INR: 1.41 (01/04/24 16:20:00) PTT: 34.6 second(s) (01/04/24 16:20:00) Glucose Lvl: 134 mg/dL (01/04/24 16:20:00) BUN: 17 mg/dL (01/04/24:20:00) Creatinine: 1.3 mg/dL (01/04/24:20:00) eGFR: 64 mL/min/1.73 m2 (01/04/24 16:20:00) BUN/Creat Ratio: 13 (01/04/24:20:00) Sodium Lvl: 133 mmol/L Low (01/04/24:20:00) Potassium Lvl: 3.7 mmol/L (01/04/24:20:00) Chloride: 98 mmol/L Low (01/04/24:20:00) CO2: 26 mmol/L (01/04/24:20:00) AGAP: 13 mEq/L (01/04/24:20:00) Calcium Lvl: 9.2 mg/dL (01/04/24:20:00) Alk Phos: 57 Int._Unit/L (01/04/24:20:00) ALT: 23 Int._Unit/L (01/04/24:20:00) AST: 20 Int._Unit/L (01/04/24:20:00) Total Protein: 7.5 gm/dL (01/04/24 16:20:00) Albumin Lvl: 4.6 gm/dL (01/04/24:20:00) Globulin: 2.9 gm/dL (01/04/24:20:00) A/G Ratio: 1.6 (01/04/24:20:00) Bili Total: 1.5 mg/dL High (01/04/24:20:00) Lactic Acid Lvl: 1.3 mmol/L (01/04/24:20:00) Troponin: 8.5 pg/mL Low (01/04/24:20:00) UA Spec Desc: Clean Catch (01/04/24:24:00) UA Color: Yellow2 (01/04/24 16:24:00) UA Clarity: Clear2 (01/04/24 16:24:00) UA Spec Grav: 1.025 (02/16/24 16:24:00) UA pH: 6.0 (01/04/24 16:24:00) UA Protein: Trace2 Abnormal (01/04/24 16:24:00) UA Glucose: NEGATIVE1 (01/04/24 16:24:00) UA Ketones: 1+ Abnormal (01/04/24 16:24:00) UA Bili: 1+ Abnormal (01/04/24 16:24:00) UA Blood: 3+ Abnormal (01/04/24 16:24:00) UA Nitrite: NEGATIVE1 (01/04/24 16:24:00) UA Urobilinogen: 0.2 (01/04/24 16:24:00) UA Leuk Est: NEGATIVE1 (01/04/24:24:00) UA RBC: 4-20 (01/04/24 16:24:00) UA Squam Epithelial: 0-2 (01/04/24 16:24:00) UA WBC: 0-5 (01/04/24 16:24:00) UA Bacteria: Trace2 (01/04/24 16:24:00) UA Mucous: 1+ (01/04/24 16:24:00) Influenzae A Ag: NEGATIVE1 (01/04/24:24:00) Influenzae B Ag: NEGATIVE1 ( (more content not included)...[facility]:Result Comment: Electronically Signed By: Rod Brown DO\.br\Date and Time Signed: 01/04/24 19:25 [id number] Hospital Discharge instructions Patient Education 01/01/2024 10:41:56 EU - Transrectal Ultrasound of the Prostate with US guided biopsy Discharge Instructions (CUSTOM) Transrectal Ultrasound of the Prostate with US guided biopsy Even though there are no visible incisions, multiple prostate biopsies have been taken through the rectum and you need to follow some instructions to minimize the risks of bleeding. You may see some blood in your urine and stool for up to 1 week (and blood in the semen for severalmonths) Diet -You may resume your normal diet, but you may want to avoid alcohol, carbonated drinks, caffeine, and spicy foods, which may increase the irritation from the surgery. -Drink plenty of water to keep the urine clear. Activity -You should limit any physical activity for about 48 hours -No heavy lifting or straining (10 pound limit) -No driving a car and limit long car rides for 2 days -No strenuous exercise -No sexual intercourse until this is discussed with your doctor Bowels -Try to keep your bowel movements soft to minimize straining to have a bowel movement. -You may use a stool softener or over the counter laxative if needed -Difficult bowel movement may lead to straining and bleeding from the prostate Medications -You may resume your home medications unless instructed otherwise -Hold aspirin, ibuprofen, Coumadin (warfarin) and other blood thinners for about two days or until there is no active bleeding unless otherwise instructed -Finish the antibiotic which you have already started Things to watch for which would require an Emergency Room visit or call 911: (this is not a complete list) -Persistent or heavy bleeding or blood clots from the rectum or in the urine -Inability to urinate -Fever over 101.5 degrees Fahrenheit, with or without chills -Severe drug reactions with itching, hives or rash -Tenderness or swelling of the calves, chest pain, or shortness of breath Please call the office to arrange for your post-operative appointment in 1-2 weeks [phone] or [phone] Follow Up Care 12/11/2023 09:20:43 With:Nadir GARCÍA Address: [facility] [address] [place] [address]- [facility] (1) When: Unknown Comments:Keep scheduled appointment [facility]01-22-2024 Hospital Discharge instructions Patient Education 12/10/2023 12:46:16 Benign Prostatic Hyperplasia Benign Prostatic Hyperplasia Benign prostatic hyperplasia (BPH) is an enlarged prostate gland that is caused by the normal agingprocess. The prostate may get bigger as a man gets older. The condition is not caused by cancer. The prostate is a walnut-sized gland that is involved in the production of semen. It is located in front of the rectum and below the bladder. The bladder stores urine. The urethra carries stored urine ou t of the body. An enlarged prostate can press on the urethra. This can make it harder to pass urine. The buildup of urine in the bladder can cause infection. Back pressure and infection may progress to bladder damage and kidney (renal) failure. What are the causes? This condition is part of the normal aging process. However, not all men develop problems from thiscondition. If the prostate enlarges away from the urethra, urine flow will not be blocked. If it enlarges toward the urethra and compresses it, there will be problems passing urine. What increases the risk? This condition is more likely to develop in men older than 50 years. What are the signs or symptoms? Symptoms of this condition include: Getting up often during the night to urinate. Needing to urinate frequently during the day. Difficulty starting urine flow. Decrease in size and strength of your urine stream. Leaking (dribbling) after urinating. Inability to pass urine. This needs immediate treatment. Inability to completely empty your bladder. Pain when you pass urine. This is more common if there is also an infection. Urinary tract infection (UTI). How is this diagnosed? This condition is diagnosed based on your medical history, a physical exam, and your symptoms. Tests will also be done, such as: A post-void bladder scan. This measures any amount of urine that may remain in your bladder after you finish urinating. A digital rectal exam. In a rectal exam, your health care provider checks your prostate by putting a lubricated, gloved finger into your rectum to feel the back of your prostate gland. This exam detects the size of your gland and any abnormal lumps or growths. An exam of your urine (urinalysis). A prostate specific antigen (PSA) screening. This is a blood test used to screen for prostate cancer. An ultrasound. This test uses sound waves to electronically produce a picture of your prostate gland. Your health care provider may refer you to a specialist in kidney and prostate diseases (urologist). How is this treated? Once symptoms begin, your health care provider will monitor your condition (active surveillance or watchful waiting). Treatment for this condition will depend on the severity of your condition. Treatment may include: Observation and yearly exams. This may be the only treatment needed if your condition and symptoms are mild. Medicines to relieve your symptoms, including: ?Medicines to shrink the prostate. ?Medicines to relax the muscle of the prostate. Surgery in severe cases. Surgery may include: ?Prostatectomy. In this procedure, the prostate tissue is removed completely through an open incision or with a laparoscope or robotics. ?Transurethral resection of the prostate (TURP). In this procedure, a tool is inserted through the opening at the tip of the penis (urethra). It is used to cut away tissue of the inner core of the prostate. The pieces are removed through the same opening of the penis. This removes the blockage. ?Transurethral incision (TUIP). In this procedure, small cuts are made in the prostate. This lessens the prostate's pressure on the urethra. ?Transurethral microwave thermotherapy (TUMT). This procedure uses microwaves to create heat. The heat destroys and removes a small amount of prostate tissue. ?Transurethral needle ablation (TUNA). This procedure uses radio frequencies to destroy and remove a small amount of prostate tissue. ?Interstitial laser coagulation (ILC). This procedure uses a laser to destroy and remove a small amount of prostate tissue. ?Transurethral electrovaporization (TUVP). This procedure uses electrodes to destroy and remove a small amount of prostate tissue. ?Prostatic urethral lift. This procedure inserts an implant to push the lobes of the prostate away from the urethra. Follow these instructions at home: Take [id number]-[id number] and prescription medicines only as told by your health care provider. Monitor your symptoms for any changes. Contact your health care provider with any changes. Avoid drinking large amounts of liquid before going to bed or out in public. Avoid or reduce how much caffeine or alcohol you drink. Give yourself time when you urinate. Keep all follow-up visits. This is important. Contact a health care provider if: You have unexplained back pain. Your symptoms do not get better with treatment. You develop side effects from the medicine you are taking. Your urine becomes very dark or has a bad smell. Your lower abdomen becomes distended and you have trouble passing urine. Get help right away if: You have a fever or chills. You suddenly cannot urinate. You feel light-headed or very dizzy, or you faint. There are large amounts of blood or clots in your urine. Your urinary problems become hard to manage. You develop moderate to severe low back or flank pain. The flank is the side of your body between the ribs and the hip. These symptoms may be an emergency. Get help right away. Call 911. Do not wait to see if the symptoms will go away. Do not drive yourself to the hospital. Summary Benign prostatic hyperplasia (BPH) is an enlarged prostate that is caused by the normal aging process. It is not caused by cancer. An enlarged prostate can press on the urethra. This can make it hard to pass urine. This condition is more likely to develop in men older than 50 years. Get help right away if you suddenly cannot urinate. This information is not intended to replace advice given to you by your health care provider. Make sure you discuss any questions you have with your health care provider. Document Revised: 05/24/2022 Document Reviewed: 05/24/2022 [employer] Patient Education 2022 [employer]. Follow Up Care 09/06/2023 13:00:22 With:RICKY LEVIN, Nadir Mercado, URL Address: [facility] [address], [place] [address]- When: Unknown Comments:Sched TRUS/bx [facility] 01-22-2024 NoteChief Complaint Referral *Elevated PSA HPI Staff Evaluation requested by Delphine Berry APRN due to elevated PSA. Pt last seen in our office by PRW04/21/13 for post op Vas appt. Denies family Hx of Prostate Cancer. Denies pain/burning and visible blood in urine. Frequency depends on fluid intake, never feels like he is going too often. Occasionally might get up 1x/night. Feels empty. Denies complaints with urinary stream. Weaker as he gets older. PSA 03/17/22 *4.6 08/21/23 *5.4 History of Present Illness Tests reviewed: reviewed UA and External Records. I have reviewed the previous health record information and history for this patient from External Provider. I have reviewed and verified the staff HPI to be accurate for this encounter. There have been no associated fever, chills, flank pain, or blood in the urine. Denies any urinary infections since last encounter. Review of Systems PHQ Score Initial Depression Screen Score: 0 SCORE ROS - Provider Constitutional: denies weight loss, denies hot flashes. Eyes: denies eye problems. Gastrointestinal: denies nausea, denies vomiting. Cardiovascular: denies chest pain or angina. Integumentary: no dryness Musculoskeletal: denies musculoskeletal symptoms. ENMT: denies otolaryngeal symptoms. Respiratory: no shortness of breath. Heme/Lymph: denies easy bleeding tendency, denies easy bruising tendency. Psychiatric: no confusion, no anxiety. Genitourinary: See HPI. Physical Exam Vitals & Measurements HR: 62(Peripheral) RR: 16 BP: 125/79 HT: 70 in HT: 178 cm WT: 82 kg WT: 180.4 lb BMI: 25.88 General Appearance: alert, no distress, well nourished, well developed male. Head: normocephalic . Eyes: normal orbit and globe. ENMT: normal examination of external ears. Chest: Lungs CTA, respirations non labored. Cardiovascular: regular rate and rhythm. Abdomen: soft, non distended, no tenderness, no mass or organomegaly, no hernia. Genitourinary: normal scrotum, normal testes, normal urethra, normal epididymis, normal vas deferens/spermatic cord. Flank Pain: none. Bladder: nonpalpable. Penis: normal shaft, normal glans. Prostate: normal prostate, estimated weight 45 gms, no hard nodule observed. Lymph Nodes: unremarkable palpation of the cervical area. Skin: warm, dry, no bruising. Psychiatric: cooperative, affect appropriate for age, normal judgement, euthymic mood. Assessment/Plan 1. BPH with urinary obstruction (N40.1: Benign prostatic hyperplasia with lower urinary tract symptoms) Denies pain/burning and visible blood in urine. Frequency depends on fluid intake, never feels likehe is going too often. Occasionally might get up 1x/night. Doesn't really feel empty when he is done voiding. Denies complaints with urinary stream. Weaker as he gets older, dribble towards the end of his stream. Discussed starting a med to help with his urinary sxs. Pt states that he would like to try a new med. -Will start Alfuzosin 10mg ER QD. Discussed the medication side effects, and the patient will monitor closely for these, as well as for symptom improvement. If severe side effects occur, the medication should be stopped and the office notified. 2. Elevated PSA (R97.20: Elevated prostate specific antigen [PSA]) PSA 03/17/22 - 4.6 08/21/23 - 5.4 Denies any known family Hx of Prostate Cancer. He has an elevated PSA, which could indicate prostate cancer, prostate infection, prostate inflammation without infection, prostate manipulation, or benign prostate enlargement (BPH). The importance of the rate of PSA rise has also been discussed. The options for management have been discussed, including prostate biopsy versus close monitoring of the PSA over time. Advised pt that the next recommended step is to get a TRUS/bx. Discussed the pt taking Valium prior to help with his anxiety. Pt states that he would like a Valium. 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 SANCHEZ: 45gms, benign All questions/concerns were discussed. Pt to call the office if he encounters any issues prior. Pt acknowledges understanding. -Will schedule TRUS of Prostate with Biopsy. The procedural risks, benefits, details, and treatmentalternatives have been discussed with the patient. These include minimal to severe bleeding, infection, blood in the semen, inability to urinate, and severe infection requiring hospitalization and IVantibiotics, among others. Full informed consent has been obtained. Will order Local anesthesia. -Will send Valium 10mg to pharmacy on file. 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 Follow-up With When Contact Information RICKY LEVIN, Nadir Mercado, GERONIMO [facility] [address], [place] [address]- Additional Instructions: Sched TRUS/bx Patient Education Benign Prostatic Hyperplasia I, Manisha Betancourt , personally scribed for Dr. García on 12/10/2023 12:54:35. . Documentation recorded by (more content not included)...[facility] on [facility]:Result Comment: Electronically Signed By: Nadir GARCÍA MD\.br\Date and Time Signed: 12/10/23 12:57 EST\.br\Electronically Co- Signed By: Manisha Betancourt\.br\Date and Time Co-Signed: 12/10/23 12:54 EST 10-29-2023 [id number] Hospital Discharge instructions Patient Education 10/26/2023 10:36:08 Colonoscopy, Care After Surgery Salam (CUSTOM) Colonoscopy Care After Surgery Please read the instructions outlined below and refer to this sheet in the next few weeks. These discharge instructions provide you with general information on caring [facility] Your doctor may also give you specific instructions. While your treatment has been planned according to the most current medical practices available, unavoidable complications occasionally occur. If you have any problems or questions after discharge, please call your doctor. ACTIVITY You may resume your regular activity, but move at a slower pace for the next 24 hours. Take frequent rest periods for the next 24 hours. Walking will help get rid of the air and reduce the bloated feeling in your abdomen (belly). No driving for 24 hours (because of the anesthesia (medicine) used during the test). You may shower. Do not sign any important legal documents or operate any machinery for 24 hours (because of the anesthesia used during the test). NUTRITION Drink plenty of fluids. You may resume your normal diet as instructed by your doctor. Begin with a light meal and progress to your normal diet. Heavy or fried foods are harder to digestand may make you feel nauseated (sick to your stomach). Avoid alcoholic beverages for 24 hours or as instructed. MEDICATIONS You may resume your normal medications unless your doctor tells you otherwise. WHAT YOU CAN EXPECT TODAY Some feelings of bloating in the abdomen. Passage of more gas than usual. Spotting of blood in your stool or on the toilet paper. FOLLOW-UP Your doctor will discuss the results of your test with you. SEEK IMMEDIATE MEDICAL ATTENTION IF: There is more than a spotting of blood in your stool. There is abdominal distention (your abdomen is swollen). There is vomiting. You have a temperature over 101.5 F. There is abdominal pain or discomfort that is severe or gets worse throughout the day. 10/26/2023 10:36:08 Diverticulosis MAGR (CUSTOM) Diverticulosis Many people have small pouches in their colon called diverticulum. The diverticulum bulge outward through weak spots in the colon. You could have one or more of these pouches in the colon. The condition of having these pouches in the colon is called diverticulosis or diverticular disease. Diverticulosis is usually diagnosed by tests to evaluate something else. For example, you may have had a colonoscopy to screen for colon cancer when the diverticulosis was found. Most people with diverticulosis do not have any discomfort or problems. If symptoms develop, they may include mild cramps, bloating, and constipation. A complication of this condition is called diverticulitis. This is when the diverticulum become inflamed and infected. How to treat diverticulosis: Increasing the amount of fiber in the diet may reduce symptoms of diverticulosis and prevent complications such as diverticulitis (infected diverticuli). Fiber keeps stool soft and lowers pressure inside the colon so that bowel contents can move througheasily. You should eat 20 to 35 grams of fiber each day. The table below shows the amount of fiber in some foods that you can easily add to your diet. Adding fiber slowly may decrease the bloating and fullness sometimes felt with an immediate high fiber diet. The doctor may also recommend taking a fiber product such as Citrucel or Metamucil once a day. In the past people with diverticulosis were to avoid nuts, corn, and seeds. This has not been foundto be true. If you find that certain foods create cramping or bloating, avoid that food. Foods high in fiber include: Fresh fruits, fresh vegetables, legumes (beans), whole wheat bread, bran muffins or cereal, and nuts. See the table below for examples of high fiber foods. Remember, your goal is 20- 35 grams per day. Amount of fiber in different foods Food Serving Grams of fiber Fruits Apple (with skin) 1 medium apple 4.4 Banana 1 medium banana 3.1 Oranges 1 orange 3.1 Prunes 1 cup, pitted 12.4 Juices Apple, unsweetened, w/added ascorbic acid 1 cup 0.5 Grapefruit, white, canned, sweetened 1 cup 0.2 Grape, unsweetened, w/added ascorbic acid 1 cup 0.5 [place] 1 cup 0.7 Vegetables Cooked Green beans 1 cup 4.0 Carrots 1/2 cup sliced 2.3 Peas 1 cup 8.8 Potato (baked, with skin) 1 medium potato 3.8 Raw [place] (with peel) 1 cucumber 1.5 Lettuce 1 cup shredded 0.5 Tomato 1 medium tomato 1.5 Spinach 1 cup 0.7 Legumes Baked beans, canned, no salt added 1 cup 13.9 Kidney beans, canned 1 cup 13.6 Marte beans, canned 1 cup 11.6 Lentils, boiled 1 cup 15.6 Breads, pastas, flours Bran muffins 1 medium muffin 5.2 Oatmeal, cooked 1 cup 4.0 White bread 1 slice 0.6 Whole-wheat bread 1 slice 1.9 Pasta and rice, cooked Macaroni 1 cup 2.5 Rice, brown 1 cup 3.5 Rice, white 1 cup 0.6 Spaghetti (regular) 1 cup 2.5 Nuts Almonds 1/2 cup 8.7 Peanuts 1/2 cup 7.9 [facility] from [facility]. SEEK IMMEDIATE MEDICAL CARE IF: You develop abdominal (belly) pain. An oral temperature above _ 101 F__develops. Repeated vomiting occurs. Blood is being passed in stools (bright red or black tarry stools). You develop any bowel problems or changes which you have not had before. Extra Information: To learn how much fiber and other nutrients are in different foods, visit the [place] Department of Agriculture (USDA) National Nutrient Database at: http://www.nal.usda.gov/fnic/foodcomp/search/ Created using data from the USDA National Nutrient Database for Standard Reference. Available at http://www.[employer].usda.gov/fnic/foodcomp/search/. Information adapted from: [facility] Patient Information 2010 [employer]. [employer] 2013 http://www.[employer]/contents/hbhzkfiixxns-cizxgdq-phpvut-the-basics 10/26/2023 10:36:08 Hemorrhoids Hemorrhoids Hemorrhoids are swollen veins in and around the rectum or anus. There are two types of hemorrhoids: Internal hemorrhoids. These occur in the veins that are just inside the rectum. They may poke through to the outside and become irritated and painful. External hemorrhoids. These occur in the veins that are outside the anus and can be felt as a painful swelling or hard lump near the anus. Most hemorrhoids do not cause serious problems, and they can be managed with home treatments such as diet and lifestyle changes. If home treatments do not help the symptoms, procedures can be done toshrink or remove the hemorrhoids. What are the causes? This condition is caused by increased pressure in the anal area. This pressure may result from various things, including: Constipation. Straining to have a bowel movement. Diarrhea. . Obesity. Sitting for long periods of time. Heavy lifting or other activity that causes you to strain. Anal sex. Riding a bike for a long period of time. What are the signs or symptoms? Symptoms of this condition include: Pain. Anal itching or irritation. Rectal bleeding. Leakage of stool (feces). Anal swelling. One or more lumps around the anus. How is this diagnosed? This condition can often be diagnosed through a visual exam. Other exams or tests may also be done,such as: An exam that involves feeling the rectal area with a gloved hand (digital rectal exam). An exam of the anal canal that is done using a small tube (anoscope). A blood test, if you have lost a significant amount of blood. A test to look inside the colon using a flexible tube with a camera on the end (sigmoidoscopy or colonoscopy). How is this treated? This condition can usually be treated at home. However, various procedures may be done if dietary changes, lifestyle changes, and other home treatments do not help your symptoms. These procedures canhelp make the hemorrhoids smaller or remove them completely. Some of these procedures involve surgery, and others do not. Common procedures include: Rubber band ligation. Rubber bands are placed at the base of the hemorrhoids to cut off their bloodsupply. Sclerotherapy. Medicine is injected into the hemorrhoids to shrink them. Infrared coagulation. A type of light energy is used to get rid of the hemorrhoids. Hemorrhoidectomy surgery. The hemorrhoids are surgically removed, and the veins that supply them are tied off. Stapled hemorrhoidopexy surgery. The surgeon you the base of the hemorrhoid to the rectal wall. Follow these instructions at home: Eating and drinking Eat foods that have a lot of fiber in them, such as whole grains, beans, nuts, fruits, and vegetables. Ask your health care provider about taking products that have added fiber (fiber supplements). Reduce the amount of fat in your diet. You can do this by eating low-fat dairy products, eating less red meat, and avoiding processed foods. Drink enough fluid to keep your urine pale yellow. Managing pain and swelling Take warm sitz baths for 20 minutes, 3 4 times a day to ease pain and discomfort. You may do this in a bathtub or using a portable sitz bath that fits over the toilet. If directed, apply ice to the affected area. Using ice packs between sitz baths may be helpful. ?Put ice in a plastic bag. ?Place a towel between your skin and the bag. ?Leave the ice on for 20 minutes, 2 3 times a day. General instructions Take bbzn-wge-vlljpjw and prescription medicines only as told by your health care provider. Use medicated creams or suppositories as told. Get regular exercise. Ask your health care provider how much and what kind of exercise is best for you. In general, you should do moderate exercise for at least 30 minutes on most days of the week (150 minutes each week). This can include activities such as walking, biking, or yoga. Go to the bathroom when you have the urge to have a bowel movement. Do not wait. Avoid straining to have bowel movements. Keep the anal area dry and clean. Use wet toilet paper or moist towelettes after a bowel movement. Do not sit on the toilet for long periods of time. This increases blood pooling and pain. Keep all follow-up visits as told by your health care provider. This is important. Contact a health care provider if you have: Increasing pain and swelling that are not controlled by treatment or medicine. Difficulty having a bowel movement, or you are unable to have a bowel movement. Pain or inflammation outside the area of the hemorrhoids. Get help right away if you have: Uncontrolled bleeding from your rectum. Summary Hemorrhoids are swollen veins in and around the rectum or anus. Most hemorrhoids can be managed with home treatments such as diet and lifestyle changes. Taking warm sitz baths can help ease pain and discomfort. In severe cases, procedures or surgery can be done to shrink or remove the hemorrhoids. This information is not intended to replace advice given to you by your health care provider. Make sure you discuss any questions you have with your health care provider. Document Revised: 05/17/2022 Document Reviewed: 05/17/2022 [employer] Patient Education 2022 [employer] 10/26/2023 10:36:08 Colon Polyps Colon Polyps Colon polyps are tissue growths inside the colon, which is part of the large intestine. They are one of the types of polyps that can grow in the body. A polyp may be a round bump or a mushroom-shapedgrowth. You could have one polyp or more than one. Most colon polyps are noncancerous (benign). However, some colon polyps can become cancerous over time. Finding and removing the polyps early can help prevent this. What are the causes? The exact cause of colon polyps is not known. What increases the risk? The following factors may make you more likely to develop this condition: Having a family history of colorectal cancer or colon polyps. Being older than 45 years of age. Being younger than 45 years of age and having a significant family history of colorectal cancer or colon polyps or a genetic condition that puts you at higher risk of getting colon polyps. Having inflammatory bowel disease, such as ulcerative colitis or Crohn's disease. Having certain conditions passed from parent to child (hereditary conditions), such as: ?Familial adenomatous polyposis (FAP). ?Florez syndrome. ?Turcot syndrome. ?Peutz Jeghers syndrome. ?MUTYH-associated polyposis (MAP). Being overweight. Certain lifestyle factors. These include smoking cigarettes, drinking too much alcohol, not gettingenough exercise, and eating a diet that is high in fat and red meat and low in fiber. Having had childhood cancer that was treated with radiation of the abdomen. What are the signs or symptoms? Many times, there are no symptoms. If you have symptoms, they may include: Blood coming from the rectum during a bowel movement. Blood in the stool (feces). The blood may be bright red or very dark in color. Pain in the abdomen. A change in bowel habits, such as constipation or diarrhea. How is this diagnosed? This condition is diagnosed with a colonoscopy. This is a procedure in which a lighted, flexible scope is inserted into the opening between the buttocks (anus) and then passed into the colon to examine the area. Polyps are sometimes found when a colonoscopy is done as part of routine cancer screening tests. How is this treated? This condition is treated by removing any polyps that are found. Most polyps can be removed during a colonoscopy. Those polyps will then be tested for cancer. Additional treatment may be needed depending on the results of testing. Follow these instructions at home: Eating and drinking Eat foods that are high in fiber, such as fruits, vegetables, and whole grains. Eat foods that are high in calcium and vitamin D, such as milk, cheese, yogurt, eggs, liver, fish, and broccoli. Limit foods that are high in fat, such as fried foods and desserts. Limit the amount of red meat, precooked or cured meat, or other processed meat that you eat, such as hot dogs, sausages, patton, or meat loaves. Limit sugary drinks. Lifestyle Maintain a healthy weight, or lose weight if recommended by your health care provider. Exercise every day or as told by your health care provider. Do not use any products that contain nicotine or tobacco, such as cigarettes, e- cigarettes, and chewing tobacco. If you need help quitting, ask your health care provider. Do not drink alcohol if: ?Your health care provider tells you not to drink. ?You are , may be , or are planning to become . If you drink alcohol: ?Limit how much you use to: ?0 1 drink a day for women. ?0 2 drinks a day for men. ?Know how much alcohol is in your drink. In the [place] one drink equals one 12 oz bottle of beer (355 mL), one 5 oz glass of wine (148 mL), or one 1 oz glass of hard liquor (44 mL). General instructions Take jgyx-vra-yjxqdvu and prescription medicines only as told by your health care provider. Keep all follow-up visits. This is important. This includes having regularly scheduled colonoscopies. Talk to your health care provider about when you need a colonoscopy. Contact a health care provider if: You have new or worsening bleeding during a bowel movement. You have new or increased blood in your stool. You have a change in bowel habits. You lose weight for no known reason. Summary Colon polyps are tissue growths inside the colon, which is part of the large intestine. They are one type of polyp that can grow in the body. Most colon polyps are noncancerous (benign), but some can become cancerous over time. This condition is diagnosed with a colonoscopy. This condition is treated by removing any polyps that are found. Most polyps can be removed during a colonoscopy. This information is not intended to replace advice given to you by your health care provider. Make sure you discuss any questions you have with your health care provider. Document Revised: 02/23/2021 Document Reviewed: 02/23/2021 [employer] Patient Education 2022 [employer]. Follow Up Care 08/28/2023 16:17:11 With:Cristóbal Lowe Address: [address] [place] [address], [address] [phone] Business (1) When: Unknown Comments:office will calll for follow up [facility]10-10-2023 NoteRadiology Colonoscopy, Adult A colonoscopy is a procedure to look at the entire large intestine. This procedure is done using a long, thin, flexible tube that has a camera on the end. You may have a colonoscopy: ? As a part of normal colorectal screening. ? If you have certain symptoms, such as: ? A low number of red blood cells in your blood (anemia). ? Diarrhea that does not go away. ? Pain in your abdomen. ? Blood in your stool. A colonoscopy can help screen for and diagnose medical problems, including: ? An abnormal growth of cells or tissue (tumor). ? Abnormal growths within the lining of your intestine (polyps). ? Inflammation. ? Areas of bleeding. Tell your health care provider about: ? Any allergies you have. ? All medicines you are taking, including vitamins, herbs, eye drops, creams, and pcvq-pjl-jylyioh medicines. ? Any problems you or family members have had with anesthetic medicines. ? Any bleeding problems you have. ? Any surgeries you have had. ? Any medical conditions you have. ? Any problems you have had with having bowel movements. ? Whether you are or may be . What are the risks? Generally, this is a safe procedure. However, problems may occur, including: ? Bleeding. ? Damage to your intestine. ? Allergic reactions to medicines given during the procedure. ? Infection. This is rare. What happens before the procedure? Eating and drinking restrictions Follow instructions from your health care provider about eating or drinking restrictions, which mayinclude: ? A few days before the procedure: ? Follow a low-fiber diet. ? Avoid nuts, seeds, dried fruit, raw fruits, and vegetables. ? 1?3 days before the procedure: ? Eat only gelatin dessert or ice pops. ? Drink only clear liquids, such as water, clear juice, clear broth or bouillon, black coffee or tea, or clear soft drinks or sports drinks. ? Avoid liquids that contain red or purple dye. ? The day of the procedure: ? Do not eat solid foods. You may continue to drink clear liquids until up to 2 hours before the procedure. ? Do not eat or drink anything starting 2 hours before the procedure, or within the time period that your health care provider recommends. Bowel prep If you were prescribed a bowel prep to take by mouth (orally) to clean out your colon: ? Take it as told by your health care provider. Starting the day before your procedure, you will need to drink a large amount of liquid medicine. The liquid will cause you to have many bowel movements of loose stool until your stool becomes almost clear or light green. ? If your skin or the opening between the buttocks (anus) gets irritated from diarrhea, you may relieve the irritation using: ? Wipes with medicine in them, such as adult wet wipes with aloe and vitamin E. ? A product to soothe skin, such as petroleum jelly. ? If you vomit while drinking the bowel prep: ? Take a break for up to 60 minutes. ? Begin the bowel prep again. ? Call your health care provider if you keep vomiting or you cannot take the bowel prep without vomiting. ? To clean out your colon, you may also be given: ? Laxative medicines. These help you have a bowel movement. ? Instructions for enema use. An enema is liquid medicine injected into your rectum. Medicines Ask your health care provider about: ? Changing or stopping your regular medicines or supplements. This is especially important if you are taking iron supplements, diabetes medicines, or blood thinners. ? Taking medicines such as aspirin and ibuprofen. These medicines can thin your blood. Do not take these medicines unless your health care provider tells you to take them. ? Taking xsvl-clu-wonkeuc medicines, vitamins, herbs, and supplements. General instructions ? Ask your health care provider what steps will be taken to help prevent infection. These may include washing skin with a germ-killing soap. ? If you will be going home right after the procedure, plan to have a responsible adult: ? Take you home from the hospital or clinic. You will not be allowed to drive. ? Care for you for the time you are told. What happens during the procedure? ? An IV will be inserted into one of your veins. ? You will be given a medicine to make you fall asleep (general anesthetic). ? You will lie on your side with your knees bent. ? A lubricant will be put on the tube. Then the tube will be: ? Inserted into your anus. ? Gently eased through all parts of your large intestine. ? Air will be sent into your colon to keep it open. This may cause some pressure or cramping. ? Images will be taken with the camera and will appear on a screen. ? A small tissue sample may be removed to be looked at under a microscope (biopsy). The tissue may be sent to a lab for testing if any signs of problems are found. ? If small polyps are found, they may be removed and checked for cancer cells. (more content not included)...[facility]10-03-2023 History of Present illness Narrative* Delphine Morton Richardhansa, SPECTROSCOPIST-[employer] - 08/21/2023 2:00 PM EDT History of Present Illness: Steve Williamson is a 58 y.o. male who comes in for routine (yearly) physical exam. Pt states thathe is performing self testicular exams. He is not having any penile or testicular irregularities/abnorms. Pt states exercise level is moderate (a lot of walking at work). Pt states that diet is Good.Pt states that he does have concerns with his left ankle (had surgery with screws placed about 20+ years ago). He is having pain in this ankle and would like to see an ankle/streaming media specialist to look into this. Pt states that his last eye exam was within last 5 or 6 months, last dental exam was 4 months ago. Health Maintenance See Health Maintenance Assessment/Plan below Active Problem List He has Hyperlipidemia; Glaucoma; and Environmental and seasonal allergies on their problem list. Past Surgical History His has a past surgical history that includes ankle surgery and other surgical (2019). Current Medications Current Outpatient Medications Medication Sig Dispense Refill ascorbic acid 500 MG tablet Take 500 mg by mouth daily. CALCIUM PO Take by mouth. Thinks contains Zinc cetirizine 10 MG tablet Take 10 mg by mouth daily. Generic for Zyrtec EPINEPHrine 0.3 MG/0.3ML Solution Auto-injector injection Hives, lip/tongue/throat swelling, breathing trouble, lightheadedness, passing out or other symptoms of an allergic reaction. (Patient not taking: No sig reported) 1 Each 0 latanoprost 0.005 % Solution ophthalmic solution Place 1 drop in both eyes every other day. multivitamin tablet Take 1 tablet by mouth daily. rosuvastatin 20 MG tablet Take 1 tablet by mouth daily. 90 tablet 3 No current facility-administered medications for this visit. Allergies He is allergic to honey bee venom, penicillins, and pollen extract. Family History family history includes Lipid Disorder in his father and mother. Social History Reports that he has never smoked. He has never used smokeless tobacco. He reports current alcohol use (typically drinking 2-3 beers per week). He reports that he does not use drugs. Immunizations There is no immunization history on file for this patient. Need order for colonoscopy Review of Systems Constitutional: Negative for chills, fatigue, fever and unexpected weight change. Sometimes feels sluggish HENT: Negative for congestion, ear pain, nosebleeds, postnasal drip, rhinorrhea, sinus pressure, sinus pain, sneezing and sore throat. Eyes: Negative for pain, discharge, redness and itching. Respiratory: Negative for cough, chest tightness, shortness of breath and wheezing. Cardiovascular: Negative for chest pain, palpitations and leg swelling. Gastrointestinal: Negative for abdominal pain, constipation, diarrhea, nausea and vomiting. Occasional heartburn if eats before bedtime Genitourinary: Negative for dysuria, frequency, hematuria and urgency. Musculoskeletal: Positive for back pain and neck stiffness (had not done anything for this, recommend chiropractic adjustment). Has had left ankle pain where his previous surgery was completed on. Would like to see ortho. Will look into who he would like to see and let us know. Skin: Negative for rash. Allergic/Immunologic: Negative for environmental allergies. Neurological: Negative for dizziness and headaches. Psychiatric/Behavioral: Negative for agitation and sleep disturbance. The patient is not nervous/anxious. Physical Exam Constitutional: He is oriented to person, place, and time. Vital signs are normal. He appears well-developed and well-nourished. Non-toxic appearance. He does not have a sickly appearance. He does not appear ill. No distress. HENT: Right Ear: Hearing, tympanic membrane, external ear and ear canal normal. Left Ear: Hearing, tympanic membrane, external ear and ear canal normal. Nose: Nose normal with mild erythremic turbinate swelling and clear drainage. Right sinus exhibits no maxillary sinus tenderness and no frontal sinus tenderness. Left sinus exhibits no maxillary sinus tenderness and no frontal sinus tenderness. Mouth/Throat: Uvula is midline, oropharynx is clear and moist and mucous membranes are normal. Eyes: Pupils are equal, round, and reactive to light. Conjunctivae reddened, clear drainage noted. No evidence of infective etiology. EOM and lids are normal. Neck: Normal range of motion. Neck supple. Carotid bruit is not present. No thyroid mass and no thyromegaly present. Cardiovascular: Normal rate, regular rhythm, normal heart sounds and intact distal pulses. No murmur heard. Pulmonary/Chest: Effort normal and breath sounds normal. He has no decreased breath sounds. He has no wheezes. He has no rhonchi. He has no rales. Abdominal: Soft. Bowel sounds are normal. There is no tenderness. There is no rebound and no CVA tenderness. Musculoskeletal: Normal range of motion. Lymphadenopathy: Head (right side): No submental, no submandibular and no tonsillar adenopathy present. Head (left side): No submental, no submandibular and no tonsillar adenopathy present. Right cervical: No superficial cervical adenopathy present. Left cervical: No superficial cervical adenopathy present. Right: No supraclavicular adenopathy present. Left: No supraclavicular adenopathy present. Skin: Skin is warm and dry. No rash noted. No erythema. Psychiatric: He has a normal mood and affect. His speech is normal and behavior is normal. Judgmentand thought content normal. Cognition and memory are normal Assessment/Plan Routine physical exam: complete physical complete. all findings in office today look good. encouraged on appropriate diet, exercise and weight reduction to help with overall health. reviewed all recent lab results. will f/u yearly. sooner if needed. pt up to date with all routine screening and immunizations. Referral in for colonoscopy. Hyperlipidemia: reviewed recent cholesterol labs with pt. showing control with cholesterol at this time. to continue with current medication regimen. encouraged on methods to help with cholesterol control aside from medication including appropriate diet, exercise (goal should be 20-30 minutes of vigorous activity 3-5 times weekly and should involve large muscles of legs and cause heart to beat faster), maintaining ideal body weight and weight reduction. encouraged on fish oil supplement. will f/u in 1 year. sooner if needed. labs fasting prior to f/u appt. Elevated PSA: discussed elevation in PSA. Discussed continued change with worsening since last check. Will refer to urology for complete work-up and assessment. F/U pending referral results. [facility] of Present illness Narrative* Hector Lo - 08/15/2022 8:30 AM EDT Referred by: Chief Complaint Patient presents with Right Knee - Follow-up, MRI Results, Pain HPI 57 year old male comes in today for his MRI results of the right knee. Patient states he has some pain. At rest his pain is 2/10 and while being active his pain is 6/10. Patient states he is about same but he has learned that if he watches his movement and steps he has less pain. Location: Right Knee Quality: aching Duration: 2 months NSAIDs? Ibuprofen as needed Analgesics? Tylenol as needed Other pain modalities? Over the counter pain patch Physical therapy? no Xrays? 06/23/2022 right kinee MRI? 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 06/23/2022 xray ordered MRI of right knee Response to treatment since last visit? Patient states he is about same but he has learned that if he watches his movement and steps he has less pain Current Outpatient Medications: ascorbic acid 500 MG tablet, Take 500 mg by mouth daily., Disp: , Rfl: CALCIUM PO, Take by mouth. Thinks contains Zinc, Disp: , Rfl: cetirizine 10 MG tablet, Take 10 mg by mouth daily. Generic for Zyrtec, Disp: , Rfl: cyanocobalamin 1000 MCG tablet, Take 1,000 mcg by mouth., Disp: , Rfl: diphenhydrAMINE 25 MG tablet, Take 25 mg by mouth every 6 hours as needed. Nightly, Disp: , Rfl: EPINEPHrine 0.3 MG/0.3ML Solution Auto-injector injection, Hives, lip/tongue/throat swelling, breathing trouble, lightheadedness, passing out or other symptoms of an allergic reaction. (Patient not taking: No sig reported), Disp: 1 Each, Rfl: 0 latanoprost 0.005 % Solution ophthalmic solution, Place 1 drop in both eyes every other day. , Disp: , Rfl: methylPREDNIsolone 4 MG Tab Therapy Pack tablet, Day 1 take 6 pills, day 2 take 5 pills, day 3 take4 pills, day 4 take 3 pills, day 5 take 2 pills, day 6 take 1 pill., Disp: 21 tablet, Rfl: 0 multivitamin tablet, Take 1 tablet by mouth daily., Disp: , Rfl: rosuvastatin 20 MG tablet, Take 1 tablet by mouth daily., Disp: 90 tablet, Rfl: 3 Family History Problem Relation Age of Onset Lipid Disorder Mother Lipid Disorder Father Social History Tobacco Use Smoking status: Never Smoker Smokeless tobacco: Never Used Substance Use Topics Alcohol use: Yes Comment: occasionally Drug use: Never Past Surgical History: Procedure Laterality Date OTHER SURGICAL 2020 Microscopic knee surgery ANKLE SURGERY Right ankle reconstruction 20 years ago. Vitals: 08/15/22 0843 Resp: 18 Weight: 83.9 kg (184 lb 15.5 oz) Height: 1.753 m (5' 9 ) Constitutional No fevers, chills or sweats, unintentional weight gain or weight loss, night pain, or night sweats except as per HPI. Cardiovascular No recent chest pain or palpitations. No claudication. No new or worsening lower extremity edema except as per HPI. Respiratory No new or worsening shortness of breath, dyspnea on exertion, orthopnea or paroxysmal nocturnal dyspnea except as per HPI. Gastrointestinal No recent heartburn or stomach upset, no history of ulcers except as per HPI. Musculoskeletal No joint pain, stiffness, or weakness except as per HPI. Endocrine No polyphagia, polydypsia, or polyuria. Hematologic No known or recent anemia, no excessive bleeding. Rheumatologic No history or currently active autoimmune or rheumatologic disease except as per HPI. Integumentary No new or relevant rashes or lesions except as per HPI. Neurologic No numbness, tingling, or weakness into her distal extremities except as per HPI. Constitutional Normal No acute distress. Well nourished. Well developed. Head/Face Normal Facial features - Normal. Eyebrows - Normal. Skull - Normal. Hair and scalp - Normal. Eyes Normal General - Right: Normal, Left: Normal. Lids/external - Right: Normal, Left: Normal. Conjunctiva - Right: Normal, Left: Normal. Ears Normal Inspection - Right: Normal, Left: Normal. Pinna - Right: Normal, Left: Normal. Nasopharynx Normal External nose - Normal. Nares - Right: Normal. Nasal Mucosa - Normal. Lips/teeth/gums - Normal. Buccal mucosa - Normal. Neck Exam Normal Inspection - Normal. Range of motion - Normal. Neck Exam Comments Supple. Respiratory Normal Inspection - Normal. Cough - Absent. Effort - Normal. Cardiovascular Normal Heart rate - Regular rate. Vascular Normal Pulses - Radial: Normal, Brachial: Normal, Dorsalis pedis: Normal, Posterior tibial: Normal. Capillary refill - Less than 2 seconds. Skin * Rash - Description: none. Extremity Normal No Edema. No Calf tenderness. Diabetic Foot Screen Normal Pulses - Dorsalis pedis: Normal, Posterior tibial: Normal. Neurological Normal Level of consciousness - Normal. Orientation - Normal. Memory - Normal. Psychiatric Normal No agitation. Appropriate mood and affect. Appropriate affect. Normal insight. Normal judgment. * Karthik Daly ATC - 08/15/2022 8:30 AM EDT Right knee Inspection: No erythema, ecchymosis, swelling or deformity. No open wounds. NVID Notes reviewed from 06/23/22 Independent interpretation: MRI right knee 06/28/22 History obtained from patient. ASSESSMENT and PLAN: 1. Primary osteoarthritis of right knee 2. Subchondral insufficiency fracture of condyle of right femur, initial encounter 3. Osteochondral defect of femoral condyle Steve's MRI reveals integrity loss of the cartilage and bone located at the medial condyle of thefemur. After discussing options, he would like to wait and see how he does. He will call if and when he wants to move forward with treatment. Referrals: none Medications prescribed today: none Follow up plan: PRN Severity of problem(s): mild Risk of morbidity from the condition and/or additional testing and treatment: low I spent approximately 35 minutes in seeing the patient, counseling about this problem and discussing the different treatment options available, reviewing the chart, imaging and preparing documentation. We discussed how to increase activity level. We discussed and demonstrated exercises as well. We discussed the concepts of MRI and educated on the significance of MRI findings. I independently interpreted the MRI and compared that with the radiologist s interpretation. I then showed the images and discussed their relevance to the diagnosis. * Earle Henderson MD - 08/15/2022 8:30 AM EDT Referred by: Chief Complaint Patient presents with Right Knee - Follow-up, MRI Results, Pain HPI 57 year old male comes in today for his MRI results of the right knee. Patient states he has some pain. At rest his pain is 2/10 and while being active his pain is 6/10. Patient states he is about same but he has learned that if he watches his movement and steps he has less pain. Location: Right Knee Quality: aching Duration: 2 months NSAIDs? Ibuprofen as needed Analgesics? Tylenol as needed Other pain modalities? Over the counter pain patch Physical therapy? no Xrays? 06/23/2022 right kinee MRI? 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 06/23/2022 xray ordered MRI of right knee Response to treatment since last visit? Patient states he is about same but he has learned that if he watches his movement and steps he has less pain Current Outpatient Medications: ascorbic acid 500 MG tablet, Take 500 mg by mouth daily., Disp: , Rfl: CALCIUM PO, Take by mouth. Thinks contains Zinc, Disp: , Rfl: cetirizine 10 MG tablet, Take 10 mg by mouth daily. Generic for Zyrtec, Disp: , Rfl: cyanocobalamin 1000 MCG tablet, Take 1,000 mcg by mouth., Disp: , Rfl: diphenhydrAMINE 25 MG tablet, Take 25 mg by mouth every 6 hours as needed. Nightly, Disp: , Rfl: EPINEPHrine 0.3 MG/0.3ML Solution Auto-injector injection, Hives, lip/tongue/throat swelling, breathing trouble, lightheadedness, passing out or other symptoms of an allergic reaction. (Patient not taking: No sig reported), Disp: 1 Each, Rfl: 0 latanoprost 0.005 % Solution ophthalmic solution, Place 1 drop in both eyes every other day. , Disp: , Rfl: methylPREDNIsolone 4 MG Tab Therapy Pack tablet, Day 1 take 6 pills, day 2 take 5 pills, day 3 take4 pills, day 4 take 3 pills, day 5 take 2 pills, day 6 take 1 pill., Disp: 21 tablet, Rfl: 0 multivitamin tablet, Take 1 tablet by mouth daily., Disp: , Rfl: rosuvastatin 20 MG tablet, Take 1 tablet by mouth daily., Disp: 90 tablet, Rfl: 3 Family History Problem Relation Age of Onset Lipid Disorder Mother Lipid Disorder Father Social History Tobacco Use Smoking status: Never Smoker Smokeless tobacco: Never Used Substance Use Topics Alcohol use: Yes Comment: occasionally Drug use: Never Past Surgical History: Procedure Laterality Date OTHER SURGICAL 2020 Microscopic knee surgery ANKLE SURGERY Right ankle reconstruction 20 years ago. Vitals: 08/15/22 0843 Resp: 18 Weight: 83.9 kg (184 lb 15.5 oz) Height: 1.753 m (5' 9 ) Constitutional No fevers, chills or sweats, unintentional weight gain or weight loss, night pain, or night sweats except as per HPI. Cardiovascular No recent chest pain or palpitations. No claudication. No new or worsening lower extremity edema except as per HPI. Respiratory No new or worsening shortness of breath, dyspnea on exertion, orthopnea or paroxysmal nocturnal dyspnea except as per HPI. Gastrointestinal No recent heartburn or stomach upset, no history of ulcers except as per HPI. Musculoskeletal No joint pain, stiffness, or weakness except as per HPI. Endocrine No polyphagia, polydypsia, or polyuria. Hematologic No known or recent anemia, no excessive bleeding. Rheumatologic No history or currently active autoimmune or rheumatologic disease except as per HPI. Integumentary No new or relevant rashes or lesions except as per HPI. Neurologic No numbness, tingling, or weakness into her distal extremities except as per HPI. Constitutional Normal No acute distress. Well nourished. Well developed. Head/Face Normal Facial features - Normal. Eyebrows - Normal. Skull - Normal. Hair and scalp - Normal. Eyes Normal General - Right: Normal, Left: Normal. Lids/external - Right: Normal, Left: Normal. Conjunctiva - Right: Normal, Left: Normal. Ears Normal Inspection - Right: Normal, Left: Normal. Pinna - Right: Normal, Left: Normal. Nasopharynx Normal External nose - Normal. Nares - Right: Normal. Nasal Mucosa - Normal. Lips/teeth/gums - Normal. Buccal mucosa - Normal. Neck Exam Normal Inspection - Normal. Range of motion - Normal. Neck Exam Comments Supple. Respiratory Normal Inspection - Normal. Cough - Absent. Effort - Normal. Cardiovascular Normal Heart rate - Regular rate. Vascular Normal Pulses - Radial: Normal, Brachial: Normal, Dorsalis pedis: Normal, Posterior tibial: Normal. Capillary refill - Less than 2 seconds. Skin * Rash - Description: none. Extremity Normal No Edema. No Calf tenderness. Diabetic Foot Screen Normal Pulses - Dorsalis pedis: Normal, Posterior tibial: Normal. Neurological Normal Level of consciousness - Normal. Orientation - Normal. Memory - Normal. Psychiatric Normal No agitation. Appropriate mood and affect. Appropriate affect. Normal insight. Normal judgment. Right knee Inspection: No erythema, ecchymosis, swelling or deformity. No open wounds. NVID Notes reviewed from 06/23/22 Independent interpretation: MRI right knee 06/28/22 History obtained from patient. ASSESSMENT and PLAN: 1. Primary osteoarthritis of right knee 2. Subchondral insufficiency fracture of condyle of right femur, initial encounter 3. Osteochondral defect of femoral condyle Steve's MRI reveals integrity loss of the cartilage and bone located at the medial condyle of thefemur. After discussing options, he would like to wait and see how he does. He will call if and when he wants to move forward with treatment. Referrals: none Medications prescribed today: none Follow up plan: PRN Severity of problem(s): mild Risk of morbidity from the condition and/or additional testing and treatment: low I spent approximately 35 minutes in seeing the patient, counseling about this problem and discussing the different treatment options available, reviewing the chart, imaging and preparing documentation. We discussed how to increase activity level. We discussed and demonstrated exercises as well. We discussed the concepts of MRI and educated on the significance of MRI findings. I independently interpreted the MRI and compared that with the radiologist s interpretation. I then showed the images and discussed their relevance to the diagnosis. I have reviewed, edited and added to the above note and agree with those findings. Additions if any: Earle Henderson MD, [facility] Inverted Block Operator - [facility] History of Present illness Narrative* Debbie Harsha - 06/23/2022 8:00 AM EDT Referred by: 57 year old male by his Chief Complaint Patient presents with Right Knee - Pain Patient is in today for R knee pain and swelling. Patient states his pain is usually constant, sharp, shooting, and hurts to touch. He states it is mostly sore when he is walking or moves it a certain way. He states if he rolls on his side in bed his R knee has pain. He states if he bends his R knee and release the bend then he has R knee pain. He states if he is walking sometimes the pain in hisR knee makes him flinch. Location: R knee Quality: sharp, shooting, constant, hurts to touch Duration: month and a half NSAIDs? Ibprofen Analgesics? Tylenoyl Other pain modalities? ice Physical therapy? no Xrays? no MRI? 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 Thinks contains Zinc, Disp: , Rfl: cetirizine 10 MG tablet, Take 10 mg by mouth daily. Generic for Zyrtec, Disp: , Rfl: cyanocobalamin 1000 MCG tablet, Take 1,000 mcg by mouth., Disp: , Rfl: diphenhydrAMINE 25 MG tablet, Take 25 mg by mouth every 6 hours as needed. Nightly, Disp: , Rfl: EPINEPHrine 0.3 MG/0.3ML Solution Auto-injector injection, Hives, lip/tongue/throat swelling, breathing trouble, lightheadedness, passing out or other symptoms of an allergic reaction. (Patient not taking: No sig reported), Disp: 1 Each, Rfl: 0 latanoprost 0.005 % Solution ophthalmic solution, Place 1 drop in both eyes every other day. , Disp: , Rfl: multivitamin tablet, Take 1 tablet by mouth daily., Disp: , Rfl: rosuvastatin 20 MG tablet, Take 1 tablet by mouth daily., Disp: 90 tablet, Rfl: 3 Family History Problem Relation Age of Onset Lipid Disorder Mother Lipid Disorder Father Social History Tobacco Use Smoking status: Never Smoker Smokeless tobacco: Never Used Substance Use Topics Alcohol use: Yes Comment: occasionally Drug use: Never Past Surgical History: Procedure Laterality Date OTHER SURGICAL 2020 Microscopic knee surgery ANKLE SURGERY Right ankle reconstruction 20 years ago. Smoking Status Never Smoker Constitutional No fevers, chills or sweats, unintentional weight gain or weight loss, night pain, or night sweats except as per HPI. Cardiovascular No recent chest pain or palpitations. No claudication. No new or worsening lower extremity edema except as per HPI. Respiratory No new or worsening shortness of breath, dyspnea on exertion, orthopnea or paroxysmal nocturnal dyspnea except as per HPI. Gastrointestinal No recent heartburn or stomach upset, no history of ulcers except as per HPI. Musculoskeletal No joint pain, stiffness, or weakness except as per HPI. Endocrine No polyphagia, polydypsia, or polyuria. Hematologic No known or recent anemia, no excessive bleeding. Rheumatologic No history or currently active autoimmune or rheumatologic disease except as per HPI. Integumentary No new or relevant rashes or lesions except as per HPI. Neurologic No numbness, tingling, or weakness into her distal extremities except as per HPI. Constitutional Normal No acute distress. Well nourished. Well developed. Head/Face Normal Facial features - Normal. Eyebrows - Normal. Skull - Normal. Hair and scalp - Normal. Eyes Normal General - Right: Normal, Left: Normal. Lids/external - Right: Normal, Left: Normal. Conjunctiva - Right: Normal, Left: Normal. Ears Normal Inspection - Right: Normal, Left: Normal. Pinna - Right: Normal, Left: Normal. Nasopharynx Normal External nose - Normal. Nares - Right: Normal. Nasal Mucosa - Normal. Lips/teeth/gums - Normal. Buccal mucosa - Normal. Neck Exam Normal Inspection - Normal. Range of motion - Normal. Neck Exam Comments Supple. Respiratory Normal Inspection - Normal. Cough - Absent. Effort - Normal. Cardiovascular Normal Heart rate - Regular rate. Vascular Normal Pulses - Radial: Normal, Brachial: Normal, Dorsalis pedis: Normal, Posterior tibial: Normal. Capillary refill - Less than 2 seconds. Skin * Rash - Description: none. Extremity Normal No Edema. No Calf tenderness. Diabetic Foot Screen Normal Pulses - Dorsalis pedis: Normal, Posterior tibial: Normal. Neurological Normal Level of consciousness - Normal. Orientation - Normal. Memory - Normal. Psychiatric Normal No agitation. Appropriate mood and affect. Appropriate affect. Normal insight. Normal judgment. * Karthik Daly ATC - 06/23/2022 8:00 AM EDT Right knee Inspection: No erythema, ecchymosis. mild swelling. No deformity. No open wounds. Palpation: small effusion. Tender to the medial joint line. ROM: full flexion, full extension, pain on overpressuring in deep flexion. Laxity: No increased laxity with varus/valgus stress test, lissette s, anterior or posterior drawer as compared to the contralateral side. Strength: Intact active flexion and extension of the knee Special Maneuvers: Positive Walter s. Xray ordered today right knee History obtained from patient. ASSESSMENT and PLAN: 1. Right knee pain, unspecified chronicity - XR KNEE RIGHT 4+ VIEWS - methylPREDNIsolone 4 MG Tab Therapy Pack tablet; Day 1 take 6 pills, day 2 take 5 pills, day 3 take 4 pills, day 4 take 3 pills, day 5 take 2 pills, day 6 take 1 pill. Dispense: 21 tablet; Refill: 0 - MRI KNEE RIGHT WITHOUT CONTRAST 2. Acute medial meniscus tear, right, initial encounter - methylPREDNIsolone 4 MG Tab Therapy Pack tablet; Day 1 take 6 pills, day 2 take 5 pills, day 3 take 4 pills, day 4 take 3 pills, day 5 take 2 pills, day 6 take 1 pill. Dispense: 21 tablet; Refill: 0 - MRI KNEE RIGHT WITHOUT CONTRAST I am concerned that Steve may have torn his meniscus. MRI is warranted. Referrals: Right knee MRI Medications prescribed today: Medrol dosepack Follow up plan: after MRI Complexity of problem(s): mild Risk of morbidity from testing or treatment: low We discussed the natural history of this problem and usual treatments. We discussed possible treatment options including conservative, aggressive, invasive and non-invasive. These options were explained in detail. The patient and/or guardian agreed with the above assessment and plan. Differential diagnoses of knee pain were considered including but not limited to degenerative change, internal derangement, fracture and any other severely limiting injury. * Earle Henderson MD - 06/23/2022 8:00 AM EDT Referred by: 57 year old male by his Chief Complaint Patient presents with Right Knee - Pain Patient is in today for R knee pain and swelling. Patient states his pain is usually constant, sharp, shooting, and hurts to touch. He states it is mostly sore when he is walking or moves it a certain way. He states if he rolls on his side in bed his R knee has pain. He states if he bends his R knee and release the bend then he has R knee pain. He states if he is walking sometimes the pain in hisR knee makes him flinch. Location: R knee Quality: sharp, shooting, constant, hurts to touch Duration: month and a half NSAIDs? Ibprofen Analgesics? Tylenoyl Other pain modalities? ice Physical therapy? no Xrays? no MRI? 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 Thinks contains Zinc, Disp: , Rfl: cetirizine 10 MG tablet, Take 10 mg by mouth daily. Generic for Zyrtec, Disp: , Rfl: cyanocobalamin 1000 MCG tablet, Take 1,000 mcg by mouth., Disp: , Rfl: diphenhydrAMINE 25 MG tablet, Take 25 mg by mouth every 6 hours as needed. Nightly, Disp: , Rfl: EPINEPHrine 0.3 MG/0.3ML Solution Auto-injector injection, Hives, lip/tongue/throat swelling, breathing trouble, lightheadedness, passing out or other symptoms of an allergic reaction. (Patient not taking: No sig reported), Disp: 1 Each, Rfl: 0 latanoprost 0.005 % Solution ophthalmic solution, Place 1 drop in both eyes every other day. , Disp: , Rfl: multivitamin tablet, Take 1 tablet by mouth daily., Disp: , Rfl: rosuvastatin 20 MG tablet, Take 1 tablet by mouth daily., Disp: 90 tablet, Rfl: 3 Family History Problem Relation Age of Onset Lipid Disorder Mother Lipid Disorder Father Social History Tobacco Use Smoking status: Never Smoker Smokeless tobacco: Never Used Substance Use Topics Alcohol use: Yes Comment: occasionally Drug use: Never Past Surgical History: Procedure Laterality Date OTHER SURGICAL 2020 Microscopic knee surgery ANKLE SURGERY Right ankle reconstruction 20 years ago. Smoking Status Never Smoker Constitutional No fevers, chills or sweats, unintentional weight gain or weight loss, night pain, or night sweats except as per HPI. Cardiovascular No recent chest pain or palpitations. No claudication. No new or worsening lower extremity edema except as per HPI. Respiratory No new or worsening shortness of breath, dyspnea on exertion, orthopnea or paroxysmal nocturnal dyspnea except as per HPI. Gastrointestinal No recent heartburn or stomach upset, no history of ulcers except as per HPI. Musculoskeletal No joint pain, stiffness, or weakness except as per HPI. Endocrine No polyphagia, polydypsia, or polyuria. Hematologic No known or recent anemia, no excessive bleeding. Rheumatologic No history or currently active autoimmune or rheumatologic disease except as per HPI. Integumentary No new or relevant rashes or lesions except as per HPI. Neurologic No numbness, tingling, or weakness into her distal extremities except as per HPI. Constitutional Normal No acute distress. Well nourished. Well developed. Head/Face Normal Facial features - Normal. Eyebrows - Normal. Skull - Normal. Hair and scalp - Normal. Eyes Normal General - Right: Normal, Left: Normal. Lids/external - Right: Normal, Left: Normal. Conjunctiva - Right: Normal, Left: Normal. Ears Normal Inspection - Right: Normal, Left: Normal. Pinna - Right: Normal, Left: Normal. Nasopharynx Normal External nose - Normal. Nares - Right: Normal. Nasal Mucosa - Normal. Lips/teeth/gums - Normal. Buccal mucosa - Normal. Neck Exam Normal Inspection - Normal. Range of motion - Normal. Neck Exam Comments Supple. Respiratory Normal Inspection - Normal. Cough - Absent. Effort - Normal. Cardiovascular Normal Heart rate - Regular rate. Vascular Normal Pulses - Radial: Normal, Brachial: Normal, Dorsalis pedis: Normal, Posterior tibial: Normal. Capillary refill - Less than 2 seconds. Skin * Rash - Description: none. Extremity Normal No Edema. No Calf tenderness. Diabetic Foot Screen Normal Pulses - Dorsalis pedis: Normal, Posterior tibial: Normal. Neurological Normal Level of consciousness - Normal. Orientation - Normal. Memory - Normal. Psychiatric Normal No agitation. Appropriate mood and affect. Appropriate affect. Normal insight. Normal judgment. Right knee Inspection: No erythema, ecchymosis. mild swelling. No deformity. No open wounds. Palpation: small effusion. Tender to the medial joint line. ROM: full flexion, full extension, pain on overpressuring in deep flexion. Laxity: No increased laxity with varus/valgus stress test, lissette s, anterior or posterior drawer as compared to the contralateral side. Strength: Intact active flexion and extension of the knee Special Maneuvers: Positive Walter s. Xray ordered today right knee History obtained from patient. ASSESSMENT and PLAN: 1. Right knee pain, unspecified chronicity - XR KNEE RIGHT 4+ VIEWS - methylPREDNIsolone 4 MG Tab Therapy Pack tablet; Day 1 take 6 pills, day 2 take 5 pills, day 3 take 4 pills, day 4 take 3 pills, day 5 take 2 pills, day 6 take 1 pill. Dispense: 21 tablet; Refill: 0 - MRI KNEE RIGHT WITHOUT CONTRAST 2. Acute medial meniscus tear, right, initial encounter - methylPREDNIsolone 4 MG Tab Therapy Pack tablet; Day 1 take 6 pills, day 2 take 5 pills, day 3 take 4 pills, day 4 take 3 pills, day 5 take 2 pills, day 6 take 1 pill. Dispense: 21 tablet; Refill: 0 - MRI KNEE RIGHT WITHOUT CONTRAST I am concerned that Steve may have torn his meniscus. MRI is warranted. Referrals: Right knee MRI Medications prescribed today: Medrol dosepack Follow up plan: after MRI Complexity of problem(s): mild Risk of morbidity from testing or treatment: low We discussed the natural history of this problem and usual treatments. We discussed possible treatment options including conservative, aggressive, invasive and non-invasive. These options were explained in detail. The patient and/or guardian agreed with the above assessment and plan. Differential diagnoses of knee pain were considered including but not limited to degenerative change, internal derangement, fracture and any other severely limiting injury. I have reviewed, edited and added to the above note and agree with those findings. Additions if any: Earle Henderson MD, [facility] Inverted Block Operator - [facility] History of Present illness Narrative* Delphine Morton Kristi, SPECTROSCOPIST-VICTIM ADVOCATE - 03/31/2022 1:30 PM EDT History of Present Illness: Steve Williamson is a 57 y.o. male who comes in for routine (yearly) physical exam. Pt states thathe is performing self testicular exams. Patient has not noticed any irregularities with this. Pt states exercise level is moderate (mowing yard, working in garden, mushroom hunting). Pt states that diet is: eats whatever he wants: eats once a day. Pt states that he does not have questions/concerns related to his health at this time. Pt states that his last eye exam was Has eye appt next Sun last one 6 months ago, last dental exam was 3 weeks ago. Health Maintenance See Health Maintenance Assessment/Plan below Active Problem List He has Hyperlipidemia; Glaucoma; and Environmental and seasonal allergies on their problem list. Past Surgical History His has a past surgical history that includes ankle surgery and other surgical (2020) (knee scope). Current Medications Current Outpatient Medications Medication Sig Dispense Refill ascorbic acid 500 MG tablet Take 500 mg by mouth daily. CALCIUM PO Take by mouth. Thinks contains Zinc cetirizine (ZyrTEC Allergy) 10 MG tablet Take 10 mg by mouth daily. Generic for Zyrtec diphenhydrAMINE 25 MG tablet Take 25 mg by mouth every 6 hours as needed. Nightly EPINEPHrine 0.3 MG/0.3ML Solution Auto-injector injection Hives, lip/tongue/throat swelling, breathing trouble, lightheadedness, passing out or other symptoms of an allergic reaction. 1 Each 0 latanoprost 0.005 % Solution ophthalmic solution Place 1 drop in both eyes every other day. multivitamin tablet Take 1 tablet by mouth daily. rosuvastatin 20 MG tablet Take 1 tablet by mouth daily. 90 tablet 3 No current facility-administered medications for this visit. Allergies He is allergic to honey bee venom and penicillins. [place] pollen Family History family history includes Lipid Disorder in his father and mother. Social History reports that he has never smoked. He has never used smokeless tobacco. He reports current alcohol use (typically drinking 4-5 beers on the weekend). He reports that he does not use drugs. Immunizations There is no immunization history on file for this patient. Review of Systems Constitutional: Negative for chills, fatigue, fever. HENT: Negative for congestion, ear pain, nosebleeds, postnasal drip, rhinorrhea, sinus pressure, sinus pain, sneezing and sore throat. Eyes: Negative for pain, discharge, redness and itching. Respiratory: Negative for cough, chest tightness, shortness of breath and wheezing. Cardiovascular: Negative for chest pain, palpitations and leg swelling. Gastrointestinal: Negative for abdominal pain, constipation, diarrhea, nausea and vomiting. Heartburn on occasion, pepcid with relief Genitourinary: Negative for dysuria, frequency, hematuria and urgency. Nocturia, typically once nightly about 2 days weekly. Skin: Negative for rash. Allergic/Immunologic: Negative for environmental allergies. Neurological: Negative for dizziness and headaches. Psychiatric/Behavioral: Negative for agitation and sleep disturbance (typically 8 1/2 hours nightly). The patient is not nervous/anxious or depressed. Physical Exam Constitutional: He is oriented to person, place, and time. Vital signs are normal. He appears well-developed and well-nourished. Non-toxic appearance. He does not have a sickly appearance. He does not appear ill. No distress. HENT: Right Ear: Hearing, tympanic membrane, external ear and ear canal normal. Left Ear: Hearing, tympanic membrane, external ear and ear canal normal. Nose: Nose normal with mild erythremic turbinate swelling and clear drainage. Right sinus exhibits no maxillary sinus tenderness and no frontal sinus tenderness. Left sinus exhibits no maxillary sinus tenderness and no frontal sinus tenderness. Mouth/Throat: Uvula is midline, oropharynx is clear and moist and mucous membranes are normal. Eyes: Pupils are equal, round, and reactive to light. Conjunctivae reddened, clear drainage noted. No evidence of infective etiology. EOM and lids are normal. Neck: Normal range of motion. Neck supple. Carotid bruit is not present. No thyroid mass and no thyromegaly present. Cardiovascular: Normal rate, regular rhythm, normal heart sounds and intact distal pulses. No murmur heard. Pulmonary/Chest: Effort normal and breath sounds normal. He has no decreased breath sounds. He has no wheezes. He has no rhonchi. He has no rales. Abdominal: Soft. Bowel sounds are normal. There is no tenderness. There is no rebound and no CVA tenderness. G/U: declines exam Musculoskeletal: Normal range of motion. Lymphadenopathy: Head (right side): No submental, no submandibular and no tonsillar adenopathy present. Head (left side): No submental, no submandibular and no tonsillar adenopathy present. Right cervical: No superficial cervical adenopathy present. Left cervical: No superficial cervical adenopathy present. Right: No supraclavicular adenopathy present. Left: No supraclavicular adenopathy present. Skin: Skin is warm and dry. No rash noted. No erythema. Psychiatric: He has a normal mood and affect. His speech is normal and behavior is normal. Judgmentand thought content normal. Cognition and memory are normal Assessment/Plan Routine physical exam: complete physical complete. all findings in office today look good. encouraged on appropriate diet, exercise and weight reduction to help with overall health. reviewed all recent lab results. will f/u yearly. sooner if needed. pt up to date with all routine screening and immunizations. Elevated PSA: discussed elevation in PSA. Discussed options of recheck in 6 months with avoidance of sexual activity or any rectal vibrations within 48-72 hours of check verses seeing urology for additional work-up. Patient would like to recheck value and order in for this. Will call with results. If continued elevation noted, will refer to urology. documented in this [facility]05-25-2021 History of Present illness Narrative* Delphine Berry APRN-CNP - 04/12/2021 7:00 AM EDT History of Present Illness ED F/U for allergic reaction Patient presented to [facility] ED on 04/10/2021 with complaints of eye swelling and throat swelling/tightening after fran of wind blew and inhaled potential allergen on 04-10-2021. Aggravating factors: unknown, knows allergic to PCN and bees. Never has had allergy testing. Alleviating factors: epi, benadryl and steroid broke response at ED. Benedryl and zyrtec have been continued at home and have been successful at preventing s/sx. Associated s/sx: Eyes itchy, watery and red today and this is only allergy s/sx. . At ED patient was assessed and administered Benadryl and 2 doses of Epi and steroids. S/sx resolvedand patient was sent home with prescriptions for epi and prednisone, but patient didn't fill knew he was following up with provider. Current s/sx include itchy, watery and red eyes Review of Systems Constitutional: Negative for chills, fatigue, fever. 13# weight gain since in last HENT: Positive for sneezing, sinus pressure above left eye. Negative for congestion, ear pain, nosebleeds, post-nasal drainage, rhinorrhea, sinus pain and sore throat. Eyes: Positive for itching, redness and watery. Negative for pain. Respiratory: Negative for cough, chest tightness, shortness of breath and wheezing. Cardiovascular: Negative for chest pain, palpitations and leg swelling. Gastrointestinal: Negative for abdominal pain, constipation, diarrhea, nausea and vomiting. Skin: Negative for rash. Allergic/Immunologic: Positive for seasonal and environmental allergies. Neurological: Negative for dizziness and headaches. Psychiatric/Behavioral: Negative for agitation and sleep disturbance. The patient is not nervous/anxious. Physical Exam Constitutional: He is oriented to person, place, and time. Vital signs are normal. He appears well-developed and well-nourished. Non-toxic appearance. He does not have a sickly appearance. He does not appear ill. No distress. HENT: Right Ear: Hearing, tympanic membrane, external ear and ear canal normal. Left Ear: Hearing, tympanic membrane, external ear and ear canal normal. Nose: Nose normal with mild erythremic turbinate swelling and clear drainage. Right sinus exhibits no maxillary sinus tenderness and no frontal sinus tenderness. Left sinus exhibits no maxillary sinus tenderness and no frontal sinus tenderness. Mouth/Throat: Uvula is midline, oropharynx is clear and moist and mucous membranes are normal. Eyes: Pupils are equal, round, and reactive to light. Conjunctivae reddened with noted broken bloodvessels to left eye, clear drainage noted. No evidence of infective etiology. EOM and lids are normal. Neck: Normal range of motion. Neck supple. Carotid bruit is not present. No thyroid mass and no thyromegaly present. Cardiovascular: Normal rate, regular rhythm, normal heart sounds and intact distal pulses. No murmur heard. Pulmonary/Chest: Effort normal and breath sounds normal. He has no decreased breath sounds. He has no wheezes. He has no rhonchi. He has no rales. Abdominal: Soft. Bowel sounds are normal. There is no tenderness. There is no rebound and no CVA tenderness. Musculoskeletal: Normal range of motion. Lymphadenopathy: Head (right side): No submental, no submandibular and no tonsillar adenopathy present. Head (left side): No submental, no submandibular and no tonsillar adenopathy present. Right cervical: No superficial cervical adenopathy present. Left cervical: No superficial cervical adenopathy present. Right: No supraclavicular adenopathy present. Left: No supraclavicular adenopathy present. Skin: Skin is warm and dry. No rash noted. No erythema. Psychiatric: He has a normal mood and affect. His speech is normal and behavior is normal. Judgmentand thought content normal. Cognition and memory are normal. Assessment and Plan Allergies: reviewed ED report showing evidence with allergic reaction. Unsure of trigger. discussedallergist for assesment which pt willing to proceed with at this time and referral in. will continue with benadryl at night and zyrtec throughout the day. advised on med, how to take/use and potential ADR's. spoke regarding methods to help with allergy control including keeping pets outdoors or outof bedroom, cover pillows and mattress in plastic to help prevent dust mites, HEPA filter in furnace/air conditioner and vacuum, stay indoors with windows shut as much as possible with high pollen counts, keep away from smoke/burning, cool mist humidification, nasal saline spray. To get prednisone a nd epi pen filled from ED and complete course with Prednisone and keep epi-pen on hand for emergencies. will f/u as needed pending referral results. documented in this [facility]05-25-2021 Instructions* Patient Instructions* Delphine Berry APRN-CNP - 04/12/2021 7:00 AM EDT Allergies: reviewed ED report showing evidence with allergic reaction. Unsure of trigger. discussedallergist for assesment which pt willing to proceed with at this time and referral in. will continue with benadryl at night and zyrtec throughout the day. advised on med, how to take/use and potential ADR's. spoke regarding methods to help with allergy control including keeping pets outdoors or outof bedroom, cover pillows and mattress in plastic to help prevent dust mites, HEPA filter in furnace/air conditioner and vacuum, stay indoors with windows shut as much as possible with high pollen counts, keep away from smoke/burning, cool mist humidification, nasal saline spray. To get prednisone a nd epi pen filled from ED and complete course with Prednisone and keep epi-pen on hand for emergencies. will f/u as needed pending referral results. [facility] No data available for this section [facility] Future App[facility]ments Appointment Date:12/10/2023 11:00:00 AM Scheduled Provider:Nadir GARCÍA MD Location:[facility] Appointment Type:URO [facility] Future Appointments Appointment Date:01/18/2024 11:00:00 AM Scheduled Provider:Nadir GARCÍA MD Location:[facility] Appointment Type:URO Office Visit [facility] evaluation + Plan note Future Appointments Appointment Date:01/18/2024 11:00:00 AM Scheduled Provider:Nadir GARCÍA MD Location:[facility] Appointment Type:URO Office Visit Diagnostic Tests Pending * Prostate Histology ([facility]) 01/01/24 [facility] Future Appointments Appointment Date:08/01/2024 11:00:00 AM Scheduled Provider:Nadir GARCÍA MD Location:[facility] Appointment Type:URO Office Visit [facility] evaluation + Plan note Future Appointments Appointment Date:12/29/2024 02:30:00 PM Scheduled Provider:Nadir GARCÍA MD Location:[facility] Appointment Type:URO Office Visit Future Scheduled Tests Laboratory* PSA Total 01/16/25 * PSA Total 02/05/24 * PSA Total 02/12/24 * PSA Total 02/19/24 * PSA Total 02/26/24 * PSA Total 03/04/24 * PSA Total 03/11/24 [facility] evaluation note* Diagnosis Environmental and seasonal allergies- Primary [facility] Diagnosis Routine general medical examination at a health care facility- Primary Elevated PSA Elevated prostate specific antigen (PSA) [facility]* Diagnosis Right knee pain, unspecified chronicity- Primary Acute medial meniscus tear, right, initial encounter [facility]* Diagnosis Primary osteoarthritis of right knee- Primary Primary localized osteoarthrosis, lower leg Subchondral insufficiency fracture of condyle of right femur, initial encounter Osteochondral defect of femoral condyle Acquired musculoskeletal deformity of other specified site [facility]* Diagnosis Routine general medical examination at a health care facility- Primary Elevated PSA Elevated prostate specific antigen (PSA) Urinary frequency Encounter for screening colonoscopy Special screening for malignant neoplasms, colon [facility]* Diagnosis History of UTI- Primary Personal history of urinary (tract) infection Acute on chronic prostatitis Sepsis without acute organ dysfunction, due to unspecified organism Chest pain, unspecified type Chest tightness Other chest pain Shortness of breath Other eczema [facility] noteNo assessment information [facility] Work Phone: Evaluation note* Diagnosis Acute on chronic prostatitis- Primary [facility] No data available for this section [facility] No data available for this section [facility] for referral (narrative)* Consultation (Routine) Status Reason Specialty Diagnoses / Procedures Referred By Contact Referred To Contact [facility] Diagnoses Environmental and seasonal allergies Delphine Berry APRN-CNP [address] [place] [address] Electronically signed by Delphine LONDONO at [facility] for referral (narrative)* Consultation (Routine) - New Request Specialty Diagnoses / Procedures Referred By Quan mendoza Referred To Contact Gastroenterology Diagnoses Encounter for screening colonoscopy Delphine Berry APRN-CNP [address] [place] [address] Luis A Weinberg MD [address] [place] [address] Referral ID Status Reason Start Date Expiration Date V isits Requested Visits Authorized [id number] New Request 08/21/2023 09/14/2024 1 1 * Consultation (Routine) - New Request Specialty Diagnoses / Procedures Referred By Quan mendoza Referred To Contact Urology Diagnoses Elevated PSA Urinary frequency Delphine Berry APRN-CNP [address] [place] [address] Referral ID Status Reason Start Date Expiration Date V isits Requested Visits Authorized [id number] New Request 08/21/2023 09/14/2024 1 1 [facility] Assessments Diagnosis Routine general medical examination at a health care facility- Primary Diagnosis Thrombocytopenia- Primary Thrombocytopenia, unspecified Routine general medical examination at a health care facility Liver enzyme elevation Nonspecific elevation of levels of transaminase or lactic acid dehydrogenase (LDH) Erectile dysfunction, unspecified erectile dysfunction type Colon cancer screening Special screening for malignant neoplasms, colon Diagnosis Acute pain of left knee- Primary Diagnosis Acute pain of left knee- Primary Diagnosis Routine general medical examination at a health care facility- Primary Screening for colon cancer Special screening for malignant neoplasms, colon Diagnosis Right calf pain Localized swelling of right lower leg Diagnosis Right calf pain Localized swelling of right lower leg Diagnosis Routine general medical examination at a health care facility- Primary Dizziness Dizziness and giddiness Instructions * Patient Instructions* Delphine Berry APRN-CNP - 01/03/2019 3:00 PM EST Routine physical exam: complete physical complete. all findings in office today look good. encouraged on appropriate diet, exercise and weight reduction to help with overall health. will f/u yearly. sooner if needed. pt up to date with all routine screening and immunizations. Thrombocytopenia: reviewed recent lab results with pt. Advised on changes with RBC indicies as wellas low platelet count. Advised that these could be associated with vit b12 deficiency and will check this. Advised that elevated MCH may be associated with liver disease as well, especially with liver enzymes elevations. Will F/U pending B-12 level and recheck on CBC. Elevated Liver Enzymes: discussed recent labs showing elevation in LFT's. Discussed potential causes of this including ingestion of ETOH and tylenol in excess and medical conditions such as fatty liver and hepatitis. will recheck LFT's as well as screen for hepatitis and check GGT and liver imaging. f/u pending labs and imaging. encouraged on no ETOH and no tylenol in meantime. Erectile Dysfunction: discussed ED s/sx in depth. Would like to trial medication for this. Script sent for [employer]. Advised on med, how to take potential ADR's. spoke regarding methods to help with erectile dysfunction aside from medication including stress reduction, avoid ETOH with sexual intercourse. will f/u in 6 months. sooner if needed. documented in this encounter* Patient Instructions* Delphine Berry APRN-CNP - 03/17/2019 2:00 PM EDT Left Knee Pain/Swelling: s/sx on exam most c/w tendonitis/burisits. Will start with knee imaging and start on course with prednisone. Advised on med, how to take and potential ADR's. He does not appear to have any acute symptoms that suggest fx or dislocation. I discussed supportive care with the patient, including regular stretching and movement. Heat and ice can also be beneficial. I have asked the patient to be on the alert for new or increasing symptoms such as worsening pain, new numbness/tingling/radiation of pain, etc and to call directly if such should occur. The patient indicates understanding of these issues and agrees with the plan. Call on Sunday with status update documented in this encounter* Patient Instructions* TrDelphine topete APRN-CNP - 12/26/2019 2:30 PM EST Routine physical exam: complete physical complete. all findings in office today look good. encouraged on appropriate diet, exercise and weight reduction to help with overall health. will f/u yearly. sooner if needed. reviewed all recent labs. documented in this encounter* Patient Instructions* Delphine Berry APRN-CNP - 01/23/2020 2:00 PM EST Leg Pain and Swelling: discussed s/sx in depth. Concern for potential clot with positive Kenedll's, however, would likely have this with strain or tear of muscle or tendon in leg. Will proceed with U/Simaging or right calf to r/o clot and MRI of knee to r/o tear. encouraged on rest, heat, elevation and will rx for naproxen and omeprazole short term until known results or healing. Advised on meds, how to take and potential ADR's. FU pending imaging results and pt status. Advised on emergent s/sx and what to do if one should occur. Discussed PT and will need to consider this pending imaging. Offwork until results obtained or symptoms resolved. documented in this encounter* Patient Instructions* Delphine Berry APRN-CNP - 01/30/2020 11:00 AM EDT Calf Pain and Swelling: discussed s/sx in depth. Reviewed negative U/S imaging. Concern for potential strain or tear of muscle or tendon in leg. Encouraged on getting MRI of knee to r/o tear as ordered. encouraged on rest, heat, elevation and will continue with rx for naproxen and omeprazole short term. FU pending imaging results and pt status. Will touch base next Sunday to review MRI and determine further treatment/referral or work clearance. Advised on emergent s/sx and what to do if one should occur. Discussed PT and will need to consider this pending imaging. Off work until results obtained or symptoms resolved. F/U in 1 week. Sooner if needed documented in this encounter* Patient Instructions* Delphine Berry APRN-CNP - 2021 8:00 AM EST Routine physical exam: complete physical complete. all findings in office today look good. Reviewedall recent labs, encouraged on appropriate diet, exercise and weight reduction to help with overallhealth. will f/u yearly. sooner if needed. reviewed all recent labs. Dizziness: neurological and cardiovascular work-up with exam showing no blatant abnorms. Discussed need and importance of three well balanced meals daily and 1 bottle of water every 2 hours awake. Ifs/sx persist despite these changes, will need to look into further with cardiovascular work-up per information systems analyst as well as carotid U/S and consideration of brain imaging. To call in 2 weeks with statu s update. Advised on emergent s/sx and what to do if one should occur. documented in this encounter History of Present Illness * Delphine Berry APRN-CNP - 01/03/2019 3:00 PM EST Routine Physical Exam History of Present Illness: Steve Williamson is a 53 y.o. male who comes in for routine (yearly) physical exam. Pt states thathe is performing self testicular exams. Pt states exercise level is okay. Exercising daily at work walking 8-10 miles and cuts wood at home. Pt states that diet is eating what wants, when wants, feels that has been eating healthy lately. Pt states that does not have questions/concerns related to his health at this time. Pt states that his last eye exam was within past year, going yearly, last dental exam was couple months ago, going every 6 months. Elevated Liver Enzymes Patient here today to review all recent labs. With labs obtained on 12/21/2018, showing elevation in liver enzyme AST at 42 and ALT at 63. Patient states that he/she is not drinking ETOH in excess. Typical ETOH consumption consists of 1-2 beers weekly. Patient is not taking tylenol in excess. Patient declines exposure to hepatitis. Patient declines yellowing of skin or eyes or RUQ pain/tenderness. Patient states that diet is good and healthy. Erectile DysfunctionThere is a complaint of erectile problems. Onset of problem was couple years and is described as sustaining erections. 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 Ejaculatory problems - No Feels like goes too early, only having sex every 6 months or so. The patient believe that these symptoms are related to medications. Relationship with partner is good, feels like partner is not interested in sex. Risk factors for ED include high cholesterol. Treatments tried in the past include nothing. Health Maintenance See Health Maintenance Assessment/Plan below Active Problem List Hehas Hyperlipidemia on their problem list. Past Surgical History Left ankle with re-constructive surgery over 20 years ago Current Medications Current Outpatient Medications Medication Sig Dispense Refill rosuvastatin 20 MG Tab tablet Take 1 tablet by mouth daily. 90 tablet 0 No current facility-administered medications for this visit. Allergies He is allergic to penicillins. Family History family history includes Lipid Disorder in his father and mother. Social History reports that he has never smoked. He has never used smokeless tobacco. His alcohol and drug histories are not on file. Immunizations Not up to date with shingles, flu shot or tetanus and declines these. Review of Systems Constitutional: Positive for fatigue (on and off, snores but declines sleep study). Negative for chills, fever and unexpected weight change. HENT: Negative for congestion, ear pain, nosebleeds, postnasal drip, rhinorrhea, sinus pressure, sinus pain, sneezing and sore throat. Eyes: Negative for pain, discharge, redness and itching. Respiratory: Negative for cough, chest tightness, shortness of breath and wheezing. Cardiovascular: Negative for chest pain, palpitations and leg swelling. Can sometimes feels heart beating harder Gastrointestinal: Negative for abdominal pain, constipation, diarrhea, nausea and vomiting. Declines heartburn Genitourinary: Negative for dysuria, frequency, hematuria and urgency. Waking at night usually once nightly Musculoskeletal: Positive for myalgias (after cutting wood). Negative for back pain, joint swellingand neck pain. Skin: Negative for rash. Allergic/Immunologic: Positive for environmental allergies (and seasonal allergies). Neurological: Positive for dizziness (every once in awhile, will feel self drift at work) and headaches (on occasion, mild and calls normal ). Psychiatric/Behavioral: Negative for agitation and sleep disturbance. The patient is not nervous/anxious. Physical Exam Constitutional: He is oriented to person, place, and time. Vital signs are normal. He appears well-developed and well-nourished. Non-toxic appearance. He does not have a sickly appearance. He does not appear ill. No distress. HENT: Right Ear: Hearing, tympanic membrane, external ear and ear canal normal. Left Ear: Hearing, tympanic membrane, external ear and ear canal normal. Nose: Nose normal. Right sinus exhibits no maxillary sinus tenderness and no frontal sinus tenderness. Left sinus exhibits no maxillary sinus tenderness and no frontal sinus tenderness. Mouth/Throat: Uvula is midline, oropharynx is clear and moist and mucous membranes are normal. Eyes: Pupils are equal, round, and reactive to light. Conjunctivae, EOM and lids are normal. Neck: Normal range of motion. Neck supple. Carotid bruit is not present. No thyroid mass and no thyromegaly present. Cardiovascular: Normal rate, regular rhythm, normal heart sounds and intact distal pulses. No murmur heard. Pulmonary/Chest: Effort normal and breath sounds normal. He has no decreased breath sounds. He has no wheezes. He has no rhonchi. He has no rales. Abdominal: Soft. Bowel sounds are normal. There is no tenderness. There is no rebound and no CVA tenderness. Genitourinary: Rectum normal. Rectal exam shows no external hemorrhoid, no internal hemorrhoid, no fissure, no mass, no tenderness, anal tone normal and guaiac negative stool. Prostate is enlarged (mild-mod). Prostate is not tender. Musculoskeletal: Normal range of motion. Lymphadenopathy: Head (right side): No submental, no submandibular and no tonsillar adenopathy present. Head (left side): No submental, no submandibular and no tonsillar adenopathy present. Right cervical: No superficial cervical adenopathy present. Left cervical: No superficial cervical adenopathy present. Right: No supraclavicular adenopathy present. Left: No supraclavicular adenopathy present. Neurological: He is alert and oriented to person, place, and time. Skin: Skin is warm and dry. No rash noted. No erythema. Psychiatric: He has a normal mood and affect. His speech is normal and behavior is normal. Judgmentand thought content normal. Cognition and memory are normal. Assessment/Plan Routine physical exam: complete physical complete. all findings in office today look good. encouraged on appropriate diet, exercise and weight reduction to help with overall health. will f/u yearly. sooner if needed. pt up to date with all routine screening and immunizations. Thrombocytopenia: reviewed recent lab results with pt. Advised on changes with RBC indicies as wellas low platelet count. Advised that these could be associated with vit b12 deficiency and will check this. Advised that elevated MCH may be associated with liver disease as well, especially with liver enzymes elevations. Will F/U pending B-12 level and recheck on CBC. Elevated Liver Enzymes: discussed recent labs showing elevation in LFT's. Discussed potential causes of this including ingestion of ETOH and tylenol in excess and medical conditions such as fatty liver and hepatitis. will recheck LFT's as well as screen for hepatitis and check GGT and liver imaging. f/u pending labs and imaging. encouraged on no ETOH and no tylenol in meantime. Erectile Dysfunction: discussed ED s/sx in depth. Would like to trial medication for this. Script sent for [employer] Advised on med, how to take potential ADR's. spoke regarding methods to help with erectile dysfunction aside from medication including stress reduction, avoid ETOH with sexual intercourse. will f/u in 6 months. sooner if needed. Discussed slight decrease in free testosterone levels. Discussed risks/benefits of treatment. Order in and pt signed for cologuard. Will contact with results and treat if/as appropriate. documented in this encounter* Delphine Berry APRN-CNP - 03/17/2019 2:00 PM EDT History of Present Illness Knee Pain Steve Williamson is a 54 y.o. male that presents with complaints of left suprapatellar knee pain. States pain is sometimes throbbing, sometimes feels needle is poking. Duration: 3 days Injury: no Swelling: yes - mild Redness or warmth: No Aggravating Factors: going up and down stairs, standing, kneeling, walking Alleviating Factors: ice, rest, elevation. Tried Ibuprofen, Vimovo, but does not feel helped. He denies fever, chills, cold symptoms, headache, sore throat, cough, sputum, chest pain, palpitations, nausea, vomiting, diarrhea, dysuria, frequency, hematuria. No hip or ankle pain, radicular symptoms or dysesthesias, weakness, numbness, or tingling. Review of Systems Constitutional: Negative for chills, fatigue, fever and unexpected weight change. HENT: Negative for congestion, ear pain, nosebleeds, postnasal drip, rhinorrhea, sinus pressure, sinus pain, sneezing and sore throat. Eyes: Negative for pain, discharge, redness and itching. Respiratory: Negative for cough, chest tightness, shortness of breath and wheezing. Cardiovascular: Negative for chest pain, palpitations and leg swelling. Gastrointestinal: Negative for abdominal pain, constipation, diarrhea, nausea and vomiting. Genitourinary: Negative for dysuria, frequency, hematuria and urgency. Musculoskeletal: L knee pain and swelling Skin: Negative for rash. Allergic/Immunologic: Negative for environmental allergies. Neurological: Negative for dizziness and headaches. Psychiatric/Behavioral: Negative for agitation and sleep disturbance. The patient is not nervous/anxious. Physical Exam Constitutional: He is oriented to person, place, and time. Vital signs are normal. He appears well-developed and well-nourished. Non-toxic appearance. He does not have a sickly appearance. He does not appear ill. No distress. HENT: Head: Normocephalic. Eyes: Conjunctivae and lids are normal. Cardiovascular: Normal rate, regular rhythm, S1 normal, S2 normal, normal heart sounds and intact distal pulses. No murmur heard. Pulmonary/Chest: Effort normal and breath sounds normal. He has no decreased breath sounds. He has no wheezes. He has no rhonchi. He has no rales. Abdominal: Soft. Normal appearance and bowel sounds are normal. There is no tenderness. There is norebound and no CVA tenderness. Musculoskeletal: Left knee: He exhibits decreased range of motion and swelling (medial). He exhibits no effusion, noecchymosis, no deformity, no laceration, no erythema, normal alignment, no LCL laxity, normal patellar mobility, no bony tenderness, normal meniscus and no MCL laxity. Tenderness found. Medial joint line and MCL tenderness noted. Lymphadenopathy: Head (right side): No submental, no submandibular and no tonsillar adenopathy present. Head (left side): No submental, no submandibular and no tonsillar adenopathy present. Right cervical: No superficial cervical adenopathy present. Left cervical: No superficial cervical adenopathy present. Right: No supraclavicular adenopathy present. Left: No supraclavicular adenopathy present. Neurological: He is oriented to person, place, and time. He has normal reflexes. Skin: Skin is warm, dry and intact. No abrasion, no bruising, no lesion and no rash noted. No erythema. Psychiatric: His mood appears not anxious. He does not exhibit a depressed mood. Neurologic Exam Mental Status Oriented to person, place, and time. Assessment and Plan Left Knee Pain/Swelling: s/sx on exam most c/w tendonitis/burisits. Will start with knee imaging and start on course with prednisone. To discontinue all NSAIDs with taking prednisone. Can continue with Tylenol if/as needed. continue with wrapping and elevation of leg/knee. Advised on med, how to take and potential ADR's. He does not appear to have any acute symptoms that suggest fx or dislocation. I discussed supportive care with the patient, including regular stretching and movement. Heat and ice can also be beneficial. I have asked the patient to be on the alert for new or increasing symptoms such as worsening pain, new numbness/tingling/radiation of pain, etc and to call directly if such should occur. The patient indicates understanding of these issues and agrees with the plan. Call on Sunday with status update. documented in this encounter* Delphine Berry APRN-CNP - 12/26/2019 2:30 PM EST History of Present Illness: Steve Williamson is a 54 y.o. male who comes in for routine (yearly) physical exam. Pt states thathe is performing self testicular exams. Pt states exercise level is moderate (walking at work). Pt states that diet is eats whatever wants. States has been eating a lot of chicken lately. Pt states that he does not have questions/concerns related to his health at this time. Pt states that his last eye exam was December 2018, last dental exam was 08/2019. Active Problem List He has Hyperlipidemia on their problem list. Past Surgical History His has a past surgical history that includes ankle surgery. Current Medications Current Medications Current Outpatient Medications Medication Sig Dispense Refill latanoprost 0.005 % Solution ophthalmic solution ROSUVASTATIN 20 MG Tab tablet TAKE 1 TABLET DAILY 90 tablet 1 No current facility-administered medications for this visit. Allergies He is allergic to penicillins. Family History family history includes Lipid Disorder in his father and mother. Social History reports that he has never smoked. He has never used smokeless tobacco. He reports current alcohol use (1 beer every 2-3 weeks). He reports that he does not use drugs. Review of Systems Constitutional: Negative for chills, fatigue. HENT: Negative for congestion, ear pain, nosebleeds, postnasal drip, rhinorrhea, sinus pressure, sinus pain, sneezing and sore throat. Eyes: Negative for pain, discharge, redness and itching. Respiratory: Negative for cough, chest tightness, shortness of breath and wheezing. Cardiovascular: Negative for chest pain, palpitations and leg swelling. Gastrointestinal: Negative for abdominal pain, constipation, diarrhea, nausea and vomiting. Genitourinary: Negative for dysuria, frequency, hematuria and urgency. Skin: Negative for rash. Allergic/Immunologic: Negative for environmental allergies. Neurological: Positive for dizziness (occasionally). Negative for headaches. Psychiatric/Behavioral: Negative for agitation and sleep disturbance. The patient is not nervous/anxious. Physical Exam Constitutional: He is oriented to person, place, and time. Vital signs are normal. He appears well-developed and well-nourished. Non-toxic appearance. He does not have a sickly appearance. He does not appear ill. No distress. HENT: Right Ear: Hearing, tympanic membrane, external ear and ear canal normal. Left Ear: Hearing, tympanic membrane, external ear and ear canal normal. Nose: Nose normal. Right sinus exhibits no maxillary sinus tenderness and no frontal sinus tenderness. Left sinus exhibits no maxillary sinus tenderness and no frontal sinus tenderness. Mouth/Throat: Uvula is midline, oropharynx is clear and moist and mucous membranes are normal. Eyes: Pupils are equal, round, and reactive to light. Conjunctivae, EOM and lids are normal. Neck: Normal range of motion. Neck supple. Carotid bruit is not present. No thyroid mass and no thyromegaly present. Cardiovascular: Normal rate, regular rhythm, normal heart sounds and intact distal pulses. No murmur heard. Pulmonary/Chest: Effort normal and breath sounds normal. He has no decreased breath sounds. He has no wheezes. He has no rhonchi. He has no rales. Abdominal: Soft. Bowel sounds are normal. There is no tenderness. There is no rebound and no CVA tenderness. Genitourinary: Rectum normal. Rectal exam shows no external hemorrhoid, no internal hemorrhoid, no fissure, no mass, no tenderness, anal tone normal and guaiac negative stool. Prostate is enlarged (mild-mod). Prostate is not tender. Musculoskeletal: Normal range of motion. Lymphadenopathy: Head (right side): No submental, no submandibular and no tonsillar adenopathy present. Head (left side): No submental, no submandibular and no tonsillar adenopathy present. Right cervical: No superficial cervical adenopathy present. Left cervical: No superficial cervical adenopathy present. Right: No supraclavicular adenopathy present. Left: No supraclavicular adenopathy present. Neurological: He is alert and oriented to person, place, and time. Skin: Skin is warm and dry. No rash noted. No erythema. Psychiatric: He has a normal mood and affect. His speech is normal and behavior is normal. Judgmentand thought content normal. Cognition and memory are normal. Assessment/Plan Routine physical exam: complete physical complete. all findings in office today look good. encouraged on appropriate diet, exercise and weight reduction to help with overall health. will f/u yearly. sooner if needed. reviewed all recent labs. documented in this encounter* Delphine Berry APRN-CNP - 01/23/2020 2:00 PM EST History of Present Illness Right Calf Pain Patient present today with complaints of right calf pain. States that s/sx started 2 days ago. Location of s/sx are: tenderness of calf. States calf is swollen and pain does not radiate. Noted aggravating factors are hurts to walk. Relieving factors are sitting. Associated symptoms include: sometimes feels like top of right foot is asleep but able to wiggles and feel. Pertinent negatives include no fever,drainage, warmth or redness. States that he was out cutting trees back in ditch. Got underneath large branch and attempted to push branch back, pushing up with right calf. Fell to ground d/t pain that experienced. Feels like pain from time happened feels a little better, maybe the same. Review of Systems Constitutional: Negative for chills, fatigue, fever and unexpected weight change. HENT: Negative for congestion, ear pain, nosebleeds, postnasal drip, rhinorrhea, sinus pressure, sinus pain, sneezing and sore throat. Eyes: Negative for pain, discharge, redness and itching. Respiratory: Negative for cough, chest tightness, shortness of breath and wheezing. Cardiovascular: Positive for leg swelling. Negative for chest pain and palpitations. Gastrointestinal: Negative for abdominal pain, constipation, diarrhea, nausea and vomiting. Genitourinary: Negative for dysuria, frequency, hematuria and urgency. Skin: Negative for rash. Allergic/Immunologic: Negative for environmental allergies. Neurological: Negative for dizziness and headaches. Psychiatric/Behavioral: Negative for agitation and sleep disturbance. The patient is not nervous/anxious. Physical Exam Musculoskeletal: Right lower leg: He exhibits tenderness and swelling. He exhibits no bony tenderness, no deformity and no laceration. Edema present. Legs: Constitutional: He is oriented to person, place, and time. Vital signs are normal. He appears well-developed and well-nourished. Non-toxic appearance. He does not have a sickly appearance. He does not appear ill. Appears to be in moderate pain with walking. HENT: Right Ear: Hearing, tympanic membrane, external ear and ear canal normal. Left Ear: Hearing, tympanic membrane, external ear and ear canal normal. Nose: Nose normal. Right sinus exhibits no maxillary sinus tenderness and no frontal sinus tenderness. Left sinus exhibits no maxillary sinus tenderness and no frontal sinus tenderness. Mouth/Throat: Uvula is midline, oropharynx is clear and moist and mucous membranes are normal. Eyes: Pupils are equal, round, and reactive to light. Conjunctivae, EOM and lids are normal. Neck: Normal range of motion. Neck supple. Carotid bruit is not present. No thyroid mass and no thyromegaly present. Cardiovascular: Normal rate, regular rhythm, normal heart sounds and intact distal pulses. No murmur heard. Pulmonary/Chest: Effort normal and breath sounds normal. He has no decreased breath sounds. He has no wheezes. He has no rhonchi. He has no rales. Abdominal: Soft. Bowel sounds are normal. There is no tenderness. There is no rebound and no CVA tenderness. Lymphadenopathy: Head (right side): No submental, no submandibular and no tonsillar adenopathy present. Head (left side): No submental, no submandibular and no tonsillar adenopathy present. Right cervical: No superficial cervical adenopathy present. Left cervical: No superficial cervical adenopathy present. Right: No supraclavicular adenopathy present. Left: No supraclavicular adenopathy present. Neurological: He is alert and oriented to person, place, and time. Skin: Skin is warm and dry. No rash noted. No erythema. Psychiatric: He has a normal mood and affect. His speech is normal and behavior is normal. Judgmentand thought content normal. Cognition and memory are normal. Assessment and Plan Calf Pain and Swelling: discussed s/sx in depth. Concern for potential clot with positive Kendell's, however, would likely have this with strain or tear of muscle or tendon in leg. Will proceed with U/S imaging or right calf to r/o clot and MRI of knee to r/o tear. encouraged on rest, heat, elevationand will rx for naproxen and omeprazole short term until known results or healing. Advised on meds,how to take and potential ADR's. FU pending imaging results and pt status. Advised on emergent s/sxand what to do if one should occur. Discussed PT and will need to consider this pending imaging. Off work until results obtained or symptoms resolved. F/U in 1 week. Sooner if needed. documented in this encounter* Delphine Berry APRN-CNP - 01/30/2020 11:00 AM EDT History of Present Illness F/U on Right Lower Leg/Calf Pain Patient presents today to F/U on his complaints of right calf pain. States that s/sx started 9 daysago. Location of s/sx are: tenderness of calf. States calf is swollen and pain does not radiate. Noted aggravating factors are hurts to walk. Relieving factors are sitting. Associated symptoms include:tingling in toes when goes to stand up, swelling, bruising. Pertinent negatives include no fever,drainage, warmth or redness. States that he was out cutting trees back in ditch. Got underneath largebranch and attempted to push branch back, pushing up with right calf. Fell to ground d/t pain that experienced. Patient did have an U/S obtained of right calf and showing negative for clot process. States goes Sunday to [facility] [place] for [place]. States is using crutches. States as long as is not applying pressure or flexion of R foot is okay, otherwise, will get pain. Review of Systems Constitutional: Negative for chills, fatigue, fever. 5# weight loss since in last, eating better since being off. HENT: Negative for congestion, ear pain, nosebleeds, postnasal drip, rhinorrhea, sinus pressure, sinus pain, sneezing and sore throat. Eyes: Negative for pain, discharge, redness and itching. Respiratory: Negative for cough, chest tightness, shortness of breath and wheezing. Cardiovascular: Negative for chest pain, palpitations and leg swelling. Gastrointestinal: Negative for abdominal pain, constipation, diarrhea, nausea and vomiting. Genitourinary: Negative for dysuria, frequency, hematuria and urgency. Musculoskeletal: R leg/calf pain Allergic/Immunologic: Negative for environmental allergies. Neurological: Negative for dizziness and headaches. Physical Exam Musculoskeletal: Right lower leg: He exhibits tenderness and swelling. He exhibits no bony tenderness, no deformity and no laceration. Edema present. Greenish healing bruise present to mid right calf Legs: Constitutional: He is oriented to person, place, and time. Vital signs are normal. He appears well-developed and well-nourished. Non-toxic appearance. He does not have a sickly appearance. He does not appear ill. Appears to be in moderate pain with walking. HENT: Right Ear: Hearing, tympanic membrane, external ear and ear canal normal. Left Ear: Hearing, tympanic membrane, external ear and ear canal normal. Nose: Nose normal. Right sinus exhibits no maxillary sinus tenderness and no frontal sinus tenderness. Left sinus exhibits no maxillary sinus tenderness and no frontal sinus tenderness. Mouth/Throat: Uvula is midline, oropharynx is clear and moist and mucous membranes are normal. Eyes: Pupils are equal, round, and reactive to light. Conjunctivae, EOM and lids are normal. Neck: Normal range of motion. Neck supple. Carotid bruit is not present. No thyroid mass and no thyromegaly present. Cardiovascular: Normal rate, regular rhythm, normal heart sounds and intact distal pulses. No murmur heard. Pulmonary/Chest: Effort normal and breath sounds normal. He has no decreased breath sounds. He has no wheezes. He has no rhonchi. He has no rales. Abdominal: Soft. Bowel sounds are normal. There is no tenderness. There is no rebound and no CVA tenderness. Lymphadenopathy: Head (right side): No submental, no submandibular and no tonsillar adenopathy present. Head (left side): No submental, no submandibular and no tonsillar adenopathy present. Right cervical: No superficial cervical adenopathy present. Left cervical: No superficial cervical adenopathy present. Right: No supraclavicular adenopathy present. Left: No supraclavicular adenopathy present. Neurological: He is alert and oriented to person, place, and time. Skin: Skin is warm and dry. No rash noted. No erythema. Psychiatric: He has a normal mood and affect. His speech is normal and behavior is normal. Judgmentand thought content normal. Cognition and memory are normal. Assessment and Plan Calf Pain and Swelling: discussed s/sx in depth. Reviewed negative U/S imaging. Concern for potential strain or tear of muscle or tendon in leg. Encouraged on getting MRI of knee to r/o tear as ordered. encouraged on rest, heat, elevation and will continue with rx for naproxen and omeprazole short term. FU pending imaging results and pt status. Will touch base next Sunday to review MRI and determine further treatment/referral or work clearance. Advised on emergent s/sx and what to do if one should occur. Discussed PT and will need to consider this pending imaging. Off work until results obtained or symptoms resolved. F/U in 1 week. Sooner if needed documented in this encounter* Delphine Berry APRN-CNP - 2021 8:00 AM EST History of Present Illness Steve Williamson is a 54 y.o. male who comes in for routine (yearly) physical exam. Pt states thathe is performing self testicular exams. Declines abnormalities. Pt states exercise level is moderate (walking at work, walking daily getting 5-10 miles). Pt states that diet is: eats whatever wants. Pt states that he does have questions/concerns related to his health at this time. Is getting dizzy every now and again Pt states that his last eye exam was 6 months to a year (going yearly), last dental exam was 6 months ago. Active Problem List He has Hyperlipidemia and glaucoma on their problem list. Past Surgical History His has a past surgical history that includes ankle surgery and left knee scope Current Outpatient Medications Medication Sig Dispense Refill latanoprost 0.005 % Solution ophthalmic solution ROSUVASTATIN 20 MG Tab tablet TAKE 1 TABLET DAILY 90 tablet 1 ascorbic acid 500 mg once daily Calcium once daily [employer] once daily Allergies He is allergic to penicillins, honey bees. Family History family history includes Lipid Disorder in his father and mother. Social History reports that he has never smoked. He has never used smokeless tobacco. He reports current alcohol use 1-2 beers a week. He reports that he does not use drugs. Dizziness Patient presents today with signs and symptoms of dizziness. States that this started couple weeks ago. States that s/sx are fluctuating. Describes dizziness as off balanced sesnsation. Aggravating factors are unknown. Relieving factors are nothing. Associated signs and symptoms include does get occasional normal H/A for him. Declines ear pain/pressure, sinus pain/pressure, N/V. Review of Systems Constitutional: Negative for chills, fever. Fatigue (declines looking into this/sleep study) HENT: Negative for congestion, ear pain, nosebleeds, postnasal drip, rhinorrhea, sinus pressure, sinus pain, sneezing and sore throat. Eyes: Negative for pain, discharge, redness and itching. Respiratory: Negative for cough and wheezing. Chest tightness and some SOB when really exerting himself. Cardiovascular: Negative for chest pain, palpitations and leg swelling. Gastrointestinal: Negative for abdominal pain, constipation, diarrhea, nausea and vomiting. Declines heartburn Genitourinary: Negative for dysuria, frequency, hematuria and urgency. Skin: Negative for rash. Allergic/Immunologic: Negative for environmental allergies. Neurological: Positive for dizziness and headaches. Psychiatric/Behavioral: Negative for agitation and sleep disturbance. The patient is not nervous/anxious. Physical Exam Neurological: General: No focal deficit present. Cranial Nerves: Cranial nerves are intact. Sensory: Sensation is intact. Motor: Motor function is intact. No weakness, abnormal muscle tone or pronator drift. Coordination: Coordination is intact. Romberg sign negative. Coordination normal. Uciiuc-Foto-Tfhgzp Test normal. Gait: Gait is intact. Gait and tandem walk normal. Deep Tendon Reflexes: Reflexes are normal and symmetric. Comments: Negative thalia-halpick bilaterally Constitutional: He is oriented to person, place, and time. Vital signs are normal. He appears well-developed and well-nourished. Non-toxic appearance. He does not have a sickly appearance. He does not appear ill. No distress. HENT: Right Ear: Hearing, tympanic membrane, external ear and ear canal normal. Left Ear: Hearing, tympanic membrane, external ear and ear canal normal. Nose: Nose normal. Right sinus exhibits no maxillary sinus tenderness and no frontal sinus tenderness. Left sinus exhibits no maxillary sinus tenderness and no frontal sinus tenderness. Mouth/Throat: Uvula is midline, oropharynx is clear and moist and mucous membranes are normal. Eyes: Pupils are equal, round, and reactive to light. Conjunctivae, EOM and lids are normal. Neck: Normal range of motion. Neck supple. Carotid bruit is not present. No thyroid mass and no thyromegaly present. Cardiovascular: Normal rate, regular rhythm, normal heart sounds and intact distal pulses. No murmur heard. Pulmonary/Chest: Effort normal and breath sounds normal. He has no decreased breath sounds. He has no wheezes. He has no rhonchi. He has no rales. Abdominal: Soft. Bowel sounds are normal. There is no tenderness. There is no rebound and no CVA tenderness. Musculoskeletal: Normal range of motion. Lymphadenopathy: Head (right side): No submental, no submandibular and no tonsillar adenopathy present. Head (left side): No submental, no submandibular and no tonsillar adenopathy present. Right cervical: No superficial cervical adenopathy present. Left cervical: No superficial cervical adenopathy present. Right: No supraclavicular adenopathy present. Left: No supraclavicular adenopathy present. Skin: Skin is warm and dry. No rash noted. No erythema. Psychiatric: He has a normal mood and affect. His speech is normal and behavior is normal. Judgmentand thought content normal. Cognition and memory are normal. Assessment and Plan Routine physical exam: complete physical complete. all findings in office today look good. Reviewedall recent labs, encouraged on appropriate diet, exercise and weight reduction to help with overallhealth. will f/u yearly. sooner if needed. reviewed all recent labs. Dizziness: neurological and cardiovascular work-up with exam showing no blatant abnorms. Discussed need and importance of three well balanced meals daily and 1 bottle of water every 2 hours awake. Ifs/sx persist despite these changes, will need to look into further with cardiovascular work-up per information systems analyst as well as carotid U/S and consideration of brain imaging. To call in 2 weeks with statu s update. Advised on emergent s/sx and what to do if one should occur. documented in this encounter Reason for Referral Status Reason Specialty Diagnoses / Procedures Referred By Contact Referred To Contact New Request Orthopaedics Diagnoses Acute pain of left knee Delphine Berry APRN-CNP [address] [place] [address] [facility] [address] [place] [id number] Status Reason Specialty Diagnoses / Procedures Referred By Contact Referred To Contact New Request Diagnoses Right calf pain Localized swelling of right lower leg Procedures MRI KNEE RIGHT WITHOUT CONTRAST [place] MRI LOWER EXTREM JT, W/O CONTRAST Delphine Berry APRN-CNP [address] [place] [address] Status Reason Specialty Diagnoses / Procedures Referred By Contact Referred To Contact Auth Not Needed Diagnoses Right calf pain Localized swelling of right lower leg Procedures US DUPLEX EXTREMITY DVT RIGHT Delphine Berry APRN-CNP [address] [place] [address] Specialty Diagnoses / Procedures Referred By Contac t Referred To Contact Diagnoses Right knee pain, unspecified chronicity Acute medial meniscus tear, right, initial encounter Procedures MRI KNEE RIGHT WITHOUT CONTRAST [place] MRI LOWER EXTREM JT, W/O CONTRAST Earle Henderson MD [address] [place] [address] [place] [address] Referral ID Status Reason Start Date Expiration Date V isits Requested Visits Authorized [id number] New Request 06/28/2022 07/23/2023 1 1 Summary Purpose Family History No Family History Records Found Relationship Condition Age at Onset Recorded Date/T ronaldo Not Specified Familial hyperlipidemia Unknown father Familial hyperlipidemia Unknown Advance Directives No Advanced Directives Records Found Advance Directive Response Recorded Date/ Time Advance Directives No March 07, 2 024 1:02pm Chief Complaint and Reason for Visit Chief Complaint post hosp Additional Source Comments Reason for Visit (unrecogniz ed section and content) Reason Comments Medication Refill Reason Comments Labs Only Reason Comments Other Physical labs Reason Comments Other Reason Comments Knee Pain Reason Comments Results Reason Comments Physical Reason Comments Other calf tear Reason Comments Leg Pain Reason Comments Annual Exam Dizziness Reason Comments Results Reason Comments Other Allergies Reason Comments Pain Reason Comments Follow-up MRI Results Pain Reason Comments Other Annual Physical Reason Comments Other prostatitis Reason Comments Prostate Problem Care Teams (unrecognized sec tion and content) Director Of Marketing Analytics Relationship Specialty Start Date End Date [facility] P[facility] - General Nurse Practitioner - Family 12/07/17 Director Of Marketing Analytics Relationship Specialty Start Date End Date Delphine Berry [facility] PCP - General Nurse Practitioner - Family 12/07/17 Director Of Marketing Analytics Relationship Specialty Start Date End Date Delphine Berry [facility] PCP - General Nurse Practitioner - Family 12/07/17 Director Of Marketing Analytics Relationship Specialty Start Date End Date Delphine Berry [facility] PCP - General Nurse Practitioner - Family 12/07/17 Director Of Marketing Analytics Relationship Specialty Start Date End Date Delphine Berry APRN-CNP PCP - General Nurse Practitioner - Family 12/07/17 Director Of Marketing Analytics Relationship Specialty Start Date End Date Delphine Berry APRN-CNP PCP - General Nurse Practitioner - [facility] 12/07/17 Team Status: Active Member Role Status Dates Arnold Moya MD Primary Care Provider Active Team Status: Inactive Member Role Status Dates Nikita Rodney MD Attending Provider Active Sta rt: March 10, 2024 End: March 10, 2024 Arnold Moya MD Primary Care Provider Active Start: March 10, 2024 End: March 10, 2024 Director Of Marketing Analytics Relationship Specialty Start Date End Date Delphine Berry APRN-CNP PCP - General Nurse Practitioner - [facility] 12/07/17 (unrecognized sect ion and content) No Status Records FoundNo Status Records FoundNo Status Records Found INFORMATION SOURCE (unrecogn ized section and content) DATE CREATED AUTHOR 09/10/2022 [facility] DATE CREATED AUTHOR AUTHOR'S ORGANIZ ATION 03/13/2024 [facility] DATE CREATED AUTHOR AUTHOR'S ORGANIZ ATION 05/10/2024 [facility] Goals (unrecognized section and content) Goals may be documented in a n alternate section FOR RECORDS PERTAINING TO PATIENTS WHO ARE OR HAVE BEEN ENROLLED IN A CHEMICAL DEPENDENCY/SUBSTANCEABUSE PROGRAM, SOME INFORMATION MAY BE OMITTED. This clinical summary was aggregated from multiple sources. Caution should be exercised in using it in the provision of clinical care. This summary normalizes information from multiple sources, and as a consequence, information in this document may materially change the coding, format and clinical context of patient data. In addition, data may be omitted in some cases. CLINICAL DECISIONS SHOULD BE BASED ON THE PRIMARY CLINICAL RECORDS. [employer] [facility]. provides no warranty or guarantee of the accuracy or completeness of information in this document.
[2024-06-09 06:37] LABS: Glucometer 117 mg/dL (74-106)
[2024-06-09] MEDS: LACTATED RINGER'S SOLUTION 1,000 ML 50 ML IV ×2 (06:42→09:27)
[2024-06-09 06:55] LABS: Basophils Percent Auto 0.6 % (0.2-2.0); Eosinophils Absolute Auto 0.2 10^3/uL (0.0-0.7); Eosinophils Percent Auto 2.8 % (0.9-7.0); Hematocrit 44.9 % (42.0-54.0); Hemoglobin 15.6 g/dL (14.0-18.0); Immature Granulocytes Abs Auto 0.01 10^3/uL (0.00-0.03); Immature Granulocytes Pct Auto 0.1 % (0.0-0.5); Lymphocytes Absolute Auto 2.1 10^3/uL (1.2-3.8); Lymphocytes Percent Auto 30.5 % (20.5-60.0); Mean Corpuscular HGB Conc 34.7 g/dL (29.9-35.2); Mean Corpuscular Hemoglobin 32.2 pg (25.9-34.0); Mean Corpuscular Volume 92.6 fL (80.0-94.0); Monocytes Absolute Auto 0.9 10^3/uL (0.3-0.8); Monocytes Percent Auto 12.1 % (1.7-12.0); Neutrophils Absolute Auto 3.8 10^3/uL (1.4-6.5); Neutrophils Percent Auto 53.9 % (43.0-75.0); Platelet Count 130 10^3/uL (150-450); Red Blood Count 4.85 10^6/uL (4.70-6.10); Red Cell Distribution Width 11.8 % (11.0-15.0)
--- NOTE | 2024-06-09 07:36 | FL_ITS ---
[address] [address] Patient Name: STEVE JOHN MRN: [id number] date: 1965 Sex: M [email or web address] Current Patient Location: Accession/Order Number: [id number] Exam Date: 06/09/2024 08:16 Report Date: 06/11/2024 08:32 At the request of: PATRICK KLEIN Procedure: FL fluoroscopy <1hr NON-READ EXAM: FL fluoroscopy <1hr NON-READ HISTORY: TECHNIQUE: FINDINGS: Please see Operative Report. Electronically authenticated by: RADIOLOGIST NO Date: 06/11/2024 08:32
[2024-06-09] MEDS: VANCOMYCIN HCL 1,250 MG in 0.9 % SODIUM CHLORIDE 250 ML 166.667 MG IV ×2 (07:38→19:49)
--- NOTE | 2024-06-09 10:09 | PM.ORONB ---
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 Subsequently he had some of his hardware removed. He denied history of infection to his ankle. He presented to my office relating to daily pain which affected activities of daily living, recreation and exercise. Due to requiring frequent breaks and inability to walk for exercise due to pain patient sought my opinion. On presentation he had minimal ankle range of motion and pain globally around the ankle. X-rays revealed end-stage ankle arthritis. CT scan was then obtained which demonstrated not only end-stage ankle arthritis and retained screws in the distal tibia but also large cystic formation within the distal tibia. I discussed the potential risks and benefits of ankle fusion versus ankle replacement. His age and activity level were somewhat concerning for ankle replacement and I related to him that due to his goals of walking at least 5 miles a day and even playing basketball I was concerned that he would likely require revision of ankle replacement in his lifetime. Patient related that he did not want to undergo any other surgery in the future therefore I recommended that ankle fusion be his best option. Noninvasive vascular studies confirmed adequate blood supply for good healing potential. I reviewed the postoperative course and answered all of his and his 's questions. Intraoperative findings: Ankle joint dorsiflexion was to neutral but not past. The anterior to posterior and lateral posterior to anterior screw heads were identified however were stripped and therefore decision was made to leave the screws in place. Periarticular osteophytes surrounding the tibiotalar joint with full-thickness cartilage loss. Bone quality was within normal limits given patient's age and gender with the subchondral bone being very hard and sclerotic. No signs of infection. Procedure in detail: Patient was identified in preoperative holding by myself at which time correct side and site were marked and consent was obtained. Regional anesthesia was administered by the anesthesia team. Preoperative antibiotics were started and the patient was brought back to the operating theater and placed on table in a sloppy lateral position. General anesthesia was administered and the left lower extremity was prepped and draped in the usual sterile fashion. Formal timeout was performed. A triple hemisection tendo Achilles lengthening was performed by releasing half of the width of the Achilles tendon in 3 areas of the noninsertional area of the Achilles tendon. This was performed by placing a stab incision on the distal aspect of the Achilles tendon just proximal to its insertion releasing the medial half. Then an additional stab incision was placed approximately 1.5 cm from the first at the mid substance of the Achilles tendon and the lateral half of the Achilles tendon was released. Finally an additional stab incision was placed proximal to the second and the medial half of the Achilles tendon was sharply released again. Ankle joint dorsiflexion did improve. The left lower extremity was then exsanguinated and the tourniquet was inflated. Lateral extensile incision was placed over the lateral ankle utilizing an existing incision which was extended distal past the tip of the fibular malleolus. Combination of sharp and blunt dissection with all bleeders being coagulated and while per texting neurovascular and tendinous structures. Access was gained to the lateral malleolus and an osteotomy of the fibula was performed proximal to the ankle joint. The fibular malleolus was then released of all soft tissue attachments and excised and passed the back table. Further dissection along the anterior and posterior tibia was then performed. With the aid of fluoroscopy the anterior to posterior screw was identified as well as the lateral posterior anterior screw within the distal tibia. Attempt was made to remove the screws however the heads were stripped. I believe that this time in the procedure that I could obtain adequate fixation without the removal of these screws therefore decision was made to leave the screws in place and remove later if necessary. Attention was then drawn to the tibiotalar joint which was distracted allowing access to the intra-articular portions of the joint. The joint was then prepped for fusion with osteotomes, curettes, rongeur's, 2.0 mm drill bit and awls. Subchondral bone was very sclerotic and there was scant amount of cartilage remaining with majority of the joint exhibiting full-thickness cartilage loss. Once the joint was adequately prepared it was irrigated with 1 L of normal saline using cystoscopy tubing then 5 cc of SPARC allograft was packed into the joint. Then with the aid of fluoroscopy the joint was pinned in a neutral position from the anterior lateral distal tibia and into the talar body. A stab incision was placed over the medial malleolus and a guidepin was placed from the medial malleolus and directed laterally into the talar body. An additional guidewire was placed from the posterior lateral distal tibia across the ankle joint and into the talar neck. Finally a stab incision was placed over the anterior distal tibia and blunt dissection was taken down to bone. An additional guidewire was placed from the stab incision from the anterior distal tibia into the posterior aspect of the talar body. 6.5 mm fully threaded tapered cannulated screws were placed over the wires accordingly under fluoroscopic guidance. Multiple attempts were made to drill past the existing screws from the posterior lateral -talar neck pin but was ultimately unsuccessful and given good stable fixation was obtained with 3 screws decision was made to abandon any additional fixation. The ankle joint was stable and compressed and examination on the table as well as under fluoroscopy revealed that the ankle joint was in a neutral position. The surgical site was irrigated with copious saline then deep fascia was closed with observable suture and the tourniquet was deflated with a prompt hyperemic response. The lateral incision was then closed in layers while the stab incisions over the medial and anterior distal tibia were closed with skin suture. A dry sterile dressing consisting of Xeroform, 4 x 4's and Kerlix were applied followed by a multilayer modified Malagon posterior splint. Patient tolerated the procedure and anesthesia well was transported to the recovery room with vital signs stable and brisk capillary refill to the left toes. Following a period of postoperative monitoring he will be transferred to the medical surgical unit for admission under the hospitalist. Postoperative plan: Admit to medical surgical unit for postoperative monitoring and admission under the hospitalist care Strict nonweightbearing left ankle Physical therapy consulted for gait training and discharge planning Multimodal pain medication, DVT prophylaxis and perioperative antibiotics were ordered Estimated length of stay 2-3 nights Will follow Implants: Vilex 6.5 mm Redemption bolts (tapered/fully threaded) x3 [employer] Sparc bone allograft 5 cc Anesthesia: regional and General-LMA Surgeon: John Peralta Real Estate Appraiser Supervisor: Juan Quiñones Estimated blood loss (mL): 25 Tourniquet time (min): 112 Condition: stable Disposition: PACU
--- NOTE | 2024-06-09 10:35 | XR_ITS ---
The [address] [address] Patient Name: STEVE JOHN MRN: [id number] date: 1965 Sex: M Assigned Patient Location: [facility] Current Patient Location: [facility] Accession/Order Number: [id number] Exam Date: 06/09/2024 11:45 Report Date: 06/10/2024 08:19 At the request of: PATRICK KLEIN Procedure: XR ankle LT min 3V PROCEDURE: XR ankle LT min 3V HISTORY: post traumatic ankle arthritis COMPARISON: XR ankle left 04/09/2024 FINDINGS: BONES:Mechanical fusion of the tibiotalar joint via multiple screws. Resection of distal fibula. Old, healed/healing fracture of distal fibula. SOFT TISSUES:Soft tissue swelling. Images were obtained to cast material which limits evaluation. EFFUSION:None visible. OTHER: Negative. XR/XR ankle LT min 3V IMPRESSION: 1. Postsurgical changes of left ankle joint without evidence of hardware failure. Electronically authenticated by: LEXY VALENCIA Date: 06/10/2024 08:19
[2024-06-09 11:36] LABS: Glucometer 150 mg/dL (74-106)
[2024-06-09] MEDS: HYDROMORPHONE HCL 0.5 MG/0.5 ML SYRINGE IV (11:36)
[2024-06-09] MEDS: OXYCODONE HCL 15 MG TABLET PO (11:48)
--- NOTE | 2024-06-09 13:25 | PM.PN ---
Progress Note: Subjective Subjective Interval history: Patient is a 59 y.o with BPH and Hyperlipidemia, underwent left ankle fusion today under care of podiatry, Dr. Peralta. He is being monitored for pain control and PT evaluation. I am seeing him in the post operative setting. He denies complaints at this time. Exam Narrative Exam Narrative: General: Patient is alert, and oriented to person, place and time with normal affect, proper hygiene Skin: no visible rashes, or ulcers Head: atraumatic, acephalic Eyes: PERRLA, no nystagmus present, conjunctiva clear, no scleral icterus Ears: normal gross auditory acuity Heart: Normal rate and rhythm, no murmurs/rubs/gallops Lungs: no audible wheezes, crackles and normal breath sounds all lung wright Abdomen: Normal audible bowel sounds, no distension, No palpable masses, no organomegaly, no rebound/guarding/ or rigidity Musculoskeletal: left foot dressing c/d/i, elevated Neuro: CN II-X grossly intact Constitutional Vital Signs, click to edit/add: Last Vital Signs Temp 98.0 F 06/09/24 13:00 Pulse 61 06/09/24 13:00 Resp 18 06/09/24 13:00 BP 117/66 06/09/24 13:00 Pulse Ox 92 L 06/09/24 13:00 O2 Del Method Room Air 06/09/24 13:00 Progress Note: Objective Labs Labs: Short CBC 06/09/24 Range/Units 06:19 WBC 7.0 (4.0-11.0) 10^3/uL Hgb 15.6 (14.0-18.0) g/dL Hct 44.9 (42.0-54.0) % Plt Count 130 L (150-450) 10^3/uL Progress Note: A&P Assessment and Plan (1) Post-traumatic arthritis of ankle: Assessment and Plan: s/p left ankle fusion, pain control per primary team. Qualifiers: Laterality: left Qualified Code(s): M19.172 - Post-traumatic osteoarthritis, left ankle and foot (2) Ankle pain: Qualifiers: Chronicity: acute Laterality: left Qualified Code(s): M25.572 - Pain in left ankle and joints of left foot (3) BPH (benign prostatic hyperplasia): Assessment and Plan: continue alfuzosin Qualifiers: Lower urinary tract symptom presence: unspecified whether lower urinary tract symptoms present Qualified Code(s): N40.0 - Benign prostatic hyperplasia without lower urinary tract symptoms (4) Elevated serum cholesterol: Assessment and Plan: continue rosuvastatin Plan Patient is a full code PT evaluation, pain control, hopeful discharge home tomorrow Urinary Catheter Management Urinary Catheter Management Urethral: Cath placed during this visit: no
[2024-06-09] MEDS: ACETAMINOPHEN 500 MG TABLET 1000 MG PO ×3 (14:23→21:41)
[2024-06-09] MEDS: ENOXAPARIN SODIUM 40 MG/0.4 ML SYRINGE SUBQ (21:41)
[2024-06-09] MEDS: PREGABALIN 75 MG CAPSULE PO (21:41)
[2024-06-10] VITALS: BP 110/68; PULSE 57; TEMP 36.4; O2SAT 93
[2024-06-10 04:00] VITALS: BP 118/69; PULSE 52; TEMP 36.5; O2SAT 96
[2024-06-10 06:01] LABS: Basophils Percent Auto 0.1 % (0.2-2.0); Hematocrit 40.3 % (42.0-54.0); Hemoglobin 13.6 g/dL (14.0-18.0); Immature Granulocytes Abs Auto 0.06 10^3/uL (0.00-0.03); Immature Granulocytes Pct Auto 0.4 % (0.0-0.5); Lymphocytes Absolute Auto 1.1 10^3/uL (1.2-3.8); Lymphocytes Percent Auto 7.1 % (20.5-60.0); Mean Corpuscular HGB Conc 33.7 g/dL (29.9-35.2); Mean Corpuscular Hemoglobin 32.1 pg (25.9-34.0); Mean Platelet Volume 11.1 fL (9.5-13.5); Monocytes Absolute Auto 1.2 10^3/uL (0.3-0.8); Monocytes Percent Auto 7.7 % (1.7-12.0); Neutrophils Absolute Auto 12.8 10^3/uL (1.4-6.5); Neutrophils Percent Auto 84.7 % (43.0-75.0); Platelet Count 128 10^3/uL (150-450); Red Blood Count 4.24 10^6/uL (4.70-6.10); Red Cell Distribution Width 11.9 % (11.0-15.0); White Blood Count 15.2 10^3/uL (4.0-11.0)
[2024-06-10] MEDS: ACETAMINOPHEN 500 MG TABLET 1000 MG PO ×2 (06:06→14:51)
[2024-06-10 06:14] LABS: Alanine Aminotransferase 27 U/L (16-63); Albumin Globulin Ratio 1.2; Albumin Level 3.4 g/dL (3.4-5.0); Alkaline Phosphatase 52 U/L (46-116); Anion Gap 10.4; Aspartate Amino Transferase 15 U/L (15-37); Bilirubin Total 0.6 mg/dL (0.2-1.0); Calcium 8.6 mg/dL (8.5-10.1); Carbon Dioxide 26.5 mmol/L (21.0-32.0); Chloride 103 mmol/L (98-107); Estimated GFR (African America >60 (>=60); Estimated GFR (Non-African Ame >60 (>=60); Globulin 2.9 g/dL; Glucose 136 mg/dL (74-106); Potassium 3.9 mmol/L (3.5-5.1); Sodium 136 mmol/L (136-145); Total Protein 6.3 g/dL (6.4-8.2)
[2024-06-10 08:03] VITALS: BP 115/68; PULSE 63; TEMP 36.4; O2SAT 98
[2024-06-10] MEDS: ALFUZOSIN HCL 10 MG TAB.ER.24H PO (08:11)
[2024-06-10] MEDS: PREGABALIN 75 MG CAPSULE PO (08:11)
[2024-06-10] MEDS: CHOLECALCIFEROL (VITAMIN D3) 125 MCG/5,000 UNIT TABLET PO (08:11)
[2024-06-10] MEDS: OXYCODONE HCL 5 MG TABLET PO ×2 (08:11→16:10)
[2024-06-10] MEDS: VANCOMYCIN HCL 1,250 MG in 0.9 % SODIUM CHLORIDE 250 ML 250 MG IV (08:11)
--- NOTE | 2024-06-10 08:28 | PM.DS1 ---
DS: Providers Provider Primary care physician: Non-Staff PhysicianMD Admitting clinician: Johana Wade Consults: 06/09/24 10:34 Physical Therapy Eval and Treat Routine Reason for consultation: gait training NWB Left ankle Has provider been notified: No Discharging clinician: Johana Wade DS: Diagnosis Discharge Diagnosis (1) Post-traumatic arthritis of ankle: Qualifiers: Laterality: left Qualified Code(s): M19.172 - Post-traumatic osteoarthritis, left ankle and foot (2) Ankle pain: Qualifiers: Chronicity: acute Laterality: left Qualified Code(s): M25.572 - Pain in left ankle and joints of left foot (3) BPH (benign prostatic hyperplasia): Qualifiers: Lower urinary tract symptom presence: unspecified whether lower urinary tract symptoms present Qualified Code(s): N40.0 - Benign prostatic hyperplasia without lower urinary tract symptoms (4) Elevated serum cholesterol: DS: Summary Hospital Course Hospital Course: Patient pain controlled on oral pain medication, POD #1, follow up appointments made, medications sent by primary podiatry team. Discharged today with close follow up. Status at Discharge Functional status at discharge: uses cane/walker Time Spent with Patient Time attestation: Total time spent providing and/or coordinating discharge services: Time spent: greater than 30 minutes Exam Narrative Exam Narrative: General: Patient is alert, and oriented to person, place and time with normal affect, proper hygiene Head: atraumatic, acephalic Heart: Normal rate and rhythm, no murmurs/rubs/gallops Lungs: no audible wheezes, crackles and normal breath sounds all lung wright Abdomen: Normal audible bowel sounds, no distension, No palpable masses, no organomegaly, no rebound/guarding/ or rigidity Musculoskeletal: no swelling bilateral lower extremities, dressing c/d/i Neuro: CN II-X grossly intact Constitutional Vital Signs, click to edit/add: Last Vital Signs Temp 97.6 F 06/10/24 08:03 Pulse 63 06/10/24 08:03 Resp 16 06/10/24 08:04 BP 115/68 06/10/24 08:03 Pulse Ox 98 06/10/24 08:03 O2 Del Method Room Air 06/10/24 08:03 DS: Data Data Completed and Pending Labs on day of discharge: Labs from last 24 hours 06/10/24 06/09/24 05:18 11:30 WBC 15.2 H RBC 4.24 L Hgb 13.6 L Hct 40.3 L MCV 95.0 H MCH 32.1 MCHC 33.7 RDW 11.9 Plt Count 128 L MPV 11.1 Neut % (Auto) 84.7 H Lymph % (Auto) 7.1 L Beltr[place] % (Auto) 7.7 Eos % (Auto) 0.0 L Baso % (Auto) 0.1 L Neut # (Auto) 12.8 H Lymph # (Auto) 1.1 L [place] # (Auto) 1.2 H Eos # (Auto) 0.0 Baso # (Auto) 0.0 Abs Immat Gran (auto) 0.06 H Imm/Tot Granulo (auto) 0.4 Sodium 136 Potassium 3.9 Chloride 103 Carbon Dioxide 26.5 Anion Gap 10.4 BUN 18.0 Creatinine 1.00 Est GFR ( Amer) >60 Est GFR (Non-Af Amer) >60 BUN/Creatinine Ratio 18.0 Glucose 136 H Calcium 8.6 Total Bilirubin 0.6 AST 15 ALT 27 Alkaline Phosphatase 52 Total Protein 6.3 L Albumin 3.4 Globulin 2.9 Albumin/Globulin Ratio 1.2 POC Glucose 150 H Discharge Plan Discharge Disposition: Home, Self-Care Condition: Good Discharge Medications: New sennosides [Senna Laxative] 8.6 mg tablet 8.6 mg PO DAILY PRN (Reason: constipation) 7 Days Qty: 7 0RF doxycycline hyclate 100 mg capsule 100 mg PO BID 7 Days Qty: 14 0RF tizanidine 2 mg tablet 2 mg PO TID PRN (Reason: muscle spasticity) 7 Days Qty: 21 0RF oxycodone-acetaminophen [Percocet] 5-325 mg tablet 1 tab PO Q6H PRN (Reason: pain) 7 Days Qty: 28 0RF aspirin 81 mg tablet,chewable 81 mg PO BID 30 Days Qty: 60 0RF ondansetron 4 mg tablet,disintegrating 4 mg PO Q8H PRN (Reason: nausea and vomiting) 5 Days Qty: 15 0RF cholecalciferol (vitamin D3) 125 mcg (5,000 unit) capsule 125 mcg PO DAILY 90 Days Qty: 90 0RF No Action alfuzosin 10 mg tablet extended release 24 hr 10 mg PO QDAY All Day Allergy (cetirizine) 10 mg capsule 10 mg PO DAILY PRN (Reason: allergy symptoms) calcium carbonate-vitamin D3 600 mg-5 mcg (200 unit) tablet 1 tab PO DAILY ascorbic acid (vitamin C) 1,000 mg capsule 1 g PO DAILY zinc 50 mg tablet 50 mg PO DAILY multivitamin [Daily Multi-Vitamin] Tablet 1 tab PO DAILY rosuvastatin 20 mg tablet 20 mg PO DAILY latanoprost 0.005 % drops 1 drp ophthalmic (eye) .[facility] Follow Up Appointments: June 18 @ 2pm with Dr. Peralta's office [phone] Referrals: John Peralta DPM [Physician] - Activity: ambulate only with your walker and return to work once cleared by your PCP/specialist Activity Restrictions/Additional Instructions: Please leave dressing to left lower extremity clean dry and intact. Do not attempt to remove the dressing or get it wet. Please maintain nonweightbearing to left foot. Please use crutches walker or knee scooter for assistance. Please take medications as prescribed. Please rest, ice behind the left knee, elevate the left foot above the level of your chest to assist with pain or swelling. Please follow-up with Dr. Peralta's office in 1 week. Please call the office to confirm appointment and/or with any questions/concerns. Diet: advance to your usual diet Print Language: Icelandic Patient Instructions: Doxycycline (By mouth), Oxycodone/Acetaminophen (By mouth), Aspirin (By mouth), Ondansetron (By mouth), Tizanidine (By mouth), Cholecalciferol (By mouth), Senna (By mouth)
--- NOTE | 2024-06-10 09:31 | PM.PN ---
Progress Note: Subjective Subjective Interval history: Patient seen and evaluated at bedside this a.m. resting comfortably. POD #1 s/p left ankle arthrodesis with tendo Achilles lengthening DOS 06/09/2024. Denies any acute events overnight. States he feels the block is wearing off, admits to tingling in the left foot with pain mostly along the medial ankle. Controlled with oral regimen at this time. Denies any other acute lower extremity complaints and denies any constitutional symptoms. Exam Narrative Exam Narrative: LLE splint left CDI. CFT intact to digits. Skin temperature warm and symmetric proximal distal dressing with no erythema or ecchymosis. Light touch sensation intact to digits. Active range of motion digits present. Compartment soft compressible, no pain with calf or thigh compression. Constitutional Vital Signs, click to edit/add: Last Vital Signs Temp 97.6 F 06/10/24 08:03 Pulse 63 06/10/24 08:03 Resp 16 06/10/24 08:04 BP 115/68 06/10/24 08:03 Pulse Ox 98 06/10/24 08:03 O2 Del Method Room Air 06/10/24 08:03 Progress Note: Objective Labs Labs: Short CBC 06/10/24 Range/Units 05:18 WBC 15.2 H (4.0-11.0) 10^3/uL Hgb 13.6 L (14.0-18.0) g/dL Hct 40.3 L (42.0-54.0) % Plt Count 128 L (150-450) 10^3/uL BMP 06/10/24 05:18 Sodium 136 Potassium 3.9 Chloride 103 Carbon Dioxide 26.5 BUN 18.0 Creatinine 1.00 Glucose 136 H Calcium 8.6 Liver Function 06/10/24 Range/Units 05:18 Total Bilirubin 0.6 (0.2-1.0) mg/dL AST 15 (15-37) U/L ALT 27 (16-63) U/L Alkaline Phosphatase 52 (46-116) U/L Albumin 3.4 (3.4-5.0) g/dL Progress Note: A&P Assessment and Plan (1) Post-traumatic arthritis of ankle: Qualifiers: Laterality: left Qualified Code(s): M19.172 - Post-traumatic osteoarthritis, left ankle and foot (2) Ankle pain: Qualifiers: Chronicity: acute Laterality: left Qualified Code(s): M25.572 - Pain in left ankle and joints of left foot (3) BPH (benign prostatic hyperplasia): Qualifiers: Lower urinary tract symptom presence: unspecified whether lower urinary tract symptoms present Qualified Code(s): N40.0 - Benign prostatic hyperplasia without lower urinary tract symptoms (4) Elevated serum cholesterol: Plan Patient examined evaluated. All findings discussed with patient all questions answered to patient's satisfaction. Prior labs and imaging reviewed. LLE splint to be left CDI until follow-up. Maintain strict nonweightbearing to left lower extremity. Crutches walker knee scooter for assistance. PT on board. Discussed as block continues to wear off throughout this a.m., will continue with multimodal pain regimen and if well-controlled with oral medications he may discharge home this afternoon/evening. Postop prescriptions sent to patient's pharmacy on file. Will follow-up with with Dr. Peralta's office in 1 week. Rest per primary, please call with questions or concerns. Urinary Catheter Management Urinary Catheter Management Urethral: Cath placed during this visit: no
--- NOTE | 2024-06-10 10:05 | SWNOTE1 ---
SW checked therapy notes and pt did well working with physical therapy. He has family members that have walker and knee scooter. Pt has crutches. No anticipated discharge needs at this time. SW to follow as needed.
--- NOTE | 2024-06-10 10:55 | CM.NOTE ---
Rounds made with Dr. Wade. Plan for discharge today.
[2024-06-10 11:07] VITALS: BP 136/74; PULSE 50; TEMP 36.4; O2SAT 97
[2024-06-10 15:22] VITALS: BP 108/63; PULSE 56; TEMP 36.5; O2SAT 94
--- NOTE | 2024-06-10 15:47 | NUTR.NU ---
Pt admitted to [facility] 06/09/24 for sx to left ankle/foot. PO intakes of regular diet are 100% and appear to meet Juancarlos's estimated macronutrient requirements. Abnormal labs indicate anemia, infection, inflammation. Encouraged him to eat a balanced diet w/increased high-quality dietary PRO to aid healing. Pt states he takes a MVI/mineral supplement at home as well as Vitamin C and zinc. He is looking forward to returning home later today. Provided Planning healthy meals handout, Myke samples, and RDN contact information. Will continue to follow PRN.
== END 2024-06-10 16:14 | disposition home or self-care (01) ==
LOC: SURGOUT 10:36 → MS 11:57
PROVIDERS: Anesthesiology; Family Medicine; Visit Provider Podiatrist Foot & Ankle Surgery
PROC: (CPT 1470; principal; 2024-06-09 07:30)
DX: M19.172 Post-traumatic osteoarthritis, left ankle and foot (principal); S82.872S Displaced pilon fracture of left tibia, sequela; N40.0 Benign prostatic hyperplasia without lower urinary tract symptoms; R79.89 Other specified abnormal findings of blood chemistry; E78.5 Hyperlipidemia, unspecified; M25.572 Pain in left ankle and joints of left foot; G89.29 Other chronic pain; M24.572 Contracture, left ankle; Z96.9 Presence of functional implant, unspecified
CPT/HCPCS: 27606; 27870; 36415; 64445; 73610; 76000; 80053; 82948; 85025; 96365; 96366; 96372; 97116; 97161; C1713; J1100; J1170; J1650; J1885; J2250; J2405; J2704; J2710; J2795; J3010; J3370

== ENCOUNTER 2024-06-27 09:16 | Outpatient (OUT) | payer BC, SELFPAY ==
--- NOTE | 2024-06-27 | XR_ITS ---
The [address] [address] Patient Name: STEVE JOHN MRN: [id number] date: 1965 Sex: M Assigned Patient Location: Current Patient Location: Accession/Order Number: [id number] Exam Date: 06/27/2024 10:35 Report Date: 07/01/2024 06:31 At the request of: PATRICK KLEIN Procedure: XR ankle LT min 3V PROCEDURE: XR ankle LT min 3V HISTORY: LEFT ANKLE PAIN COMPARISON: XR ankle left 06/09/2024 FINDINGS: BONES:Mechanical fusion of the ankle joint via multiple screws; no appreciable hardware fracture or loosening. Resection of distal fibula. SOFT TISSUES:Lateral soft tissue swelling. Cast material has been removed. EFFUSION:None visible. OTHER: Negative. XR/XR ankle LT min 3V IMPRESSION: 1. Stable surgical changes without evidence of hardware failure or change in alignment. 2. Lateral soft tissue swelling. Electronically authenticated by: LEXY VALENCIA Date: 07/01/2024 06:31
--- OUTSIDE RECORDS SUMMARY | 2024-06-27 09:32 | XMS_ITS | CCD ---
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, Delphine A Primary Care Provide r ARNOLD MOYA Primary Care Physician Jade Tinajero Unavailable Unavailable TRUBACHIK, DELPHINE Primary Care Physician Trubachik 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, Delphine A Primary Care Provide r SELF, SELF Referring Unavailable TRUBACHIK, DELPHINE Primary Care Unavailable EARLE HENDERSON S Attending Unavailable TRUBACHIK, DELPHINE Primary Care Unavailable EARLE HENDERSON S Referring Unavailable HENDERSONEARLE S Attending Unavailable TRUBACHIK, DELPHINE Primary Care Unavailable EARLE HENDERSON S Attending Unavailable SELF, SELF Referring Unavailable Trubachik 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, Delphine A Primary Care Provide r TRUBACHIK, [...] source) Honey bee venom Substance Allergy 1 [facility] Work Phone: Penicillins (antibiotic) (2 sources) Penicillins; Translations: [penicillins] Drug Allergy 8 [facility] (20 sources) Penicillins; Translations: [penicillins] Propensity to adverse reactions to drug 8 Unknown (qualifier value), Rash [facility] Work Phone: (8 sources) Honey bee venom Propensity to adverse reactions to drug 1 [facility] (7 sources) Pollen Propensity to adverse reactions to drug 2 [facility] (3 sources) Penicillins Propensity to adverse reactions to drug 8 [facility] (1 source) bee sting Allergy to substance 4 Unknown Reaction [facility] Medications Current Medications Medication Drug Class(es) Dates [...] Daily, # 30 tab(s), Refills(s) 11, Pharmacy: [facility], 178, cm, 12/10/23 11:59:00 EST, Height/Length [...] Daily, # 21 tab(s), Refills(s) 0, Pharmacy: [facility] Start Date: 05/07/19 Status: Ordered Start: 05-07-2019 take 1 tablet by colleen th once daily Ecotrin 325 mg Tab-EC 325 mg = 1 tab(s), Oral, Daily, # 21 tab(s), Refills(s) 0, Pharmacy: [facility] Start Date: 05/07/19 Status: Ordered Calcium [...] day(s), # 28 cap(s), Refills(s) 0, Pharmacy: [facility], 178, cm, 01/10/24 10:05:00 EST, Height/Length [...] procedure., # 1 tab(s), Refills(s) 0, Pharmacy: [facility], 178, cm, 12/10/23 11:59:00 EST, Height/Length [...] day(s), # 14 tab(s), Refills(s) 0, Pharmacy: [facility], 178, cm, 01/04/24 16:00:00 EST, Height/Length [...] Daily, # 30 tab(s), Refills(s) 11, Pharmacy: [facility], 178, cm, 01/18/24 11:25:00 EST, Height/Length [...] Daily, # 30 tab(s), Refills(s) 11, Pharmacy: [facility], 178, cm, 01/18/24 11:25:00 EST, Height/Length [...] hours., # 30 tab(s), Refills(s) 4, Pharmacy: [facility], 178, cm, 01/18/24 11:25:00 EST, Height/Length [...] tablet (4 sources) Opioid Agonist Start: 9 [place] 325 mg-5 mg oral tablet See Instructions, for pain, 40 tab(s), Refill(s) 0, 1 - 2 po q4-6h prn pain Dx: M67.52 Duration: 7 days, [facility] Start Date: 05/07/19 Status: Ordered diphenhydrAMINE [...] source) Long-term current use of antibiotic; 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 FUGBBnmt80IGh8rPr+PG hl YWQ+GU5FGVJmJ25sfYZywI 7iR0GVERsXDwqcMLAXKZzL OzEqzcEaKH7ieELfTCEp IC8+JI7pGZQnFddhwJSod6 T8mEA2G30cxl3oIJkijQR8 AJDlPhKhfdbbk1ybaJx1GE cuNmluOyBt MTMjfL51SLH7vZ42Bx32pY FgpZUpl7yuvIt3XsCvBQTl OTQ2hGizJZedd5VkIIViM3 2myOSyw6L1 VPQwbZrznGJfBqWpyOL5pX 1gVKpniuhmt0cfxhucSso0 ys20yNJht6K9kOD6Q3Ksll Q9BZSuqMBz HfuexHCUjU5nihhlv5ptjs ylKmOcVYOqYIn1XZe5UAAh dPivHqUfGG11UKU5DNZrmz SoE8AeNDBw iUyeShR6k7Y4Vb2QQ9KXJf veK2EJDITODMpswUE+PC90 tt80T5KqLczpBku3USHhTO D2fPC3bY4u VWOtKCros6O1pEP1N5Vvpr Jluq8fk0egVCQkQNaqE55x yPDza8K7NHSioPI3YZJtoE hiBaWdwI04 Oyc+RLXtxFott6SqRkmkf6 avg4ffzIs9YgiePQYgksEu cNegCJV2i5JqIp9tSJCpcY U4vVJ5hV7a HwZsChX2SEwuQ815NeKsyP FoWqrmQ13pH1GtwYJ+PHRy Enh9FRGbsJusQN8bQ5EzUP RpbmctbGVm fOmnZB3oMKLvyvhxAUEzqD 4qPRKdS6a6QgYsQlN9MSww J4CpYXMccitnBr67nT7zAb EhZjH9SMhe O4KinjQ1KIXytOHnZQqkTH A1L42tk8Y0PUJbZJFlMKP1 eEA0rT5xcOhxagrzeUIriH sgdmVydGlj EKqkUHjfE976OZVouPtpWu NvZGluZyBEYXRlOiAgMDYv MjAvMjAyNDwvdGQ+PHRkIH M1bJonJTUx fQUrFLyhKh4jeNzhvZuvLP 0eHCOaqdjhHMTsdL8tSXBm tFWcqTuhYA9mZXZodnqil2 82SoKgWHI4 IZCjwVEvV9JpyT4oPfUjPS XfTIKfG9OjdPIfQCkoH904 FGyeUoU5QVVmpjSnP0KmHT FsaWduOiB0 u6Z9Vw6Yh6RlxgwuS4AgoF QpImAaZvkwOIi7R9NkMkyh dHI+EY04ZFLtSK62IPk0NU T4bTmoEJtl ZWXcT7GqmR9gNqJfCSVpWO RkOyc+PHRhYmxlIHdpZHRo WNwxLSTgUbLnxXlkDQ5vYk 9yZGVyLWNv aEmsfICpKqYpy7yrVWFuBZ xvTY3ccCqnN7AnfNO7CCOt i1q3Qb89H63bB9AtlWF+PG UcnJS8aDU5 vH7fEwQuVxZ0VHryF671Ft MgqNVpJkuvg9mjk3eztVg6 CnZ7HBAwsvVxmJpkXMF6z8 PzLv12N56y IHdpZHRoPSIxNSUiIHZhbG odbx1rcF8pKy0+PGNvbCB3 fUG6iW0bAvVvTrF1PDxtK3 49InRvcCIv Ezqoq5gcl2oanXi3GvShJN YtlfRhlFbzDHS8r6SgQt67 S1MxdYvpc6JvAnz1xt05zE Wck2O9rFT7 T4CaZMVwikrgfLYebNbgVM 9oHVBukfrhTEEzwA8iBJOp W9e9RwDiCeT4AElrX7Tjba M2WLIdcQXh BBKbrRSEyK2ezwzzp0skdb rzXbIhPYRvDXu4CGd0AVQs yPwrAjIiYUY4VrN2FNM0cO RwiY2dkBqe ajpaiC1lLui+SOA5sTOaaG UCZX8gWkqgvBO+PHRkIHN0 rXjkGYweCCDpdO7hZQPoJ6 t2ZnVfMzR0 LCitQ2VqaoZ6DIMnkKUwRC TcaGCCzJ9svhrmk0sqgqay CbMtGZKrAMs9QTb1LLHtwR duOiBsZWZ0 ZlS2ASB4aPVkcD9ypTjhwc xslA7cVnb+QmlydGggRGF0 GZu3J0BnLqu9HIByuLxqAS 0ncGFkZGlu Uc4nnUofxSccLS1kGBHezi idr992YzMct7qnZTYdcKNe ZVpgYCO2T99id5X8NGZxKE FgEIJ3pFR3 eL3faOpdmnzyuGNqgWwvtd YelAinAZeqSGxpQ220QSGq bRlhLfWeZSt5I2YqVhd2JQ DduYriAI8h nAEhHFslAs8clTfaaQuqBF 7pYVBdyjmoi321IyEgw0xf TDAclJWgXJzsBAA0L91lr7 I9ZABaWHVl ZPJ0hHN7fU2qnBjjzhlbcN VmdDsgdmVydGljYWwtYWxp G753NVPlzWizXjQcpEd7H2 LbSou0JALf sGfpZO3kyJJnMRzzWd5yvD lhhVybTD7fBANsdowkv249 FfYlh5qhSMBxtYQeHHnfIS Q7L13gm1Y7 YURnMSKcDDW1zTE2hB7rwN lnbjogbGVmdDsgdmVydGlj WMyoQCyyX293KYShgOgsOv BhdGllbnQg YYgtXIy6X8CbHfbtlRF+PC 27NNEcXM33hBYevLSss5bf nYh7DoOwHZBiPZP0xFyvHD syj6NpBQUe W48dlEWym4R4BLFdoFkewV EeZpVpjQT3eD4tBIpjimru i7bfyhtrShped3obdp26zG 12F47lQXdh ZHRoPSIzMCUiIHZhbGlnbj 2ajG8sNj6+KEPceYJ5eYF8 jK8rKNYwOfG7KSpuA781Dc RvcCIvPjxj l5rol3htiMb0EhB1NHOqym KiyZdoXBY5s2DgUj81S00e IHdpZHRoPSIyMCUiIHZhbG bcez9hbD3r Ii8+QAOmqTP3iDT3vI4wJf JbKwQ5NXvjM891GxLroCAx VmfqQ73eO4TppGP+PHRyPj b6IZMkxLvz QV8emYHjNCmhZb0iENW6Ie OoVzKuDKpkV2TvBGHxqsjp qvdtgLY2WWMpHMZmjX97Wb 9udDogMTBw pZJKkJ3teqcaq6edupyjBm FuOUFfPCe7STa0AVJrtHub LsAgUNV9EaD4LPV7hEMmdK 1hbGlnbjog yQ2aD8IzRFHlgjxkOm17lG 6aJvPvXdA6WKuiQyo+Uk9U BdTCUjkbX0VGC61KHOYZZG 76DQ85eUPn y4C6iJM0P0YqXMRojxtjwi encJH2PZRaGQAgkC38iTMm MJfyMf9yn7Y8d117XLXvHW NvjC03Eo8x nKwdGUMxoMGNmL6lhorju1 ztvgbrDbRcWNSyOTo8ENb5 RSQrnGfmGyJmYWN4JsD8VL I7cECtcI2r hBiejzeraW4vHpn+MDMvMD DzOBj2GdqsbZU+PHRkIHN0 gTttFHqeKTUfaP7sXLFfU9 z1ZvNuBjU1 MYnsX4YoCLLjmdloDq29bG 9bXjBjFwF8XNzkL2PoicF6 CSObgBQaVNkuDDI5L38db6 H2DVGaCCZb CXB6iTK4pU0ocDvcaoudaQ VmdDsgdmVydGljYWwtYWxp W769DQFqsExrQmH0JFhoHG CePG40JZ03 aYRok6O8tIS5V1BaLKWjsp hjddkdxPB7VBGuZRLlnT30 gPZuIPewFd8dy5O1k288WG LwVNDkmQ00 Ro9dmWvhAHJluSSShV6hdq nyu2lhzwbeQcUfDAVxXQi1 DXj3ZNLeyLthLnLjOVQ5Ml L6TNT7wQCx sY6itIsepmseiF9aHje+TW FsZTwvdGQ+DEWmDUX2kAfa SRmzRAHtnG2mICCwJ9u8Yz QhUhM6UFhq G3IcPOGviwhjNe36sI1qWd XzAvL3YPhmV5MwwrN1DBHv qPPkJQbvWMI5F67xl0G3KL MwMDAwMDA7 lKH7nR8coKwjrbothEQkuH jxyrWpvXzsQAbdJLmlJ845 FMWvfTkpIk35wXIwsWtniu T4E7KtGngx dHI+RE94HETbMS72wKVifB Bnr2vcvUq6BhBrEUEkDSK5 aMmcMTnum2JsQURrE83xeX Lti9S7YBKs bPlhmCGvWlTxnUW1fZ8lNL qielryj9wyvysuZwhdr3tv ar41bE95L13bKIquMVTiMY IzMCUiIHZh rQerpb2mbO0tJz2+PGNvbC X4wFF6mR7sTrOyFxU7IKqg E427NwOutKYvVojfn6taa4 ijkMm0SiGa SHNldzRbyZtySCA8o6OaGk 45S82oABvmOGQiUPXiLDUb GKJmkMxsod6kiM8gXd5+PC 1di0zoww31 gN01tRN+BFVjCRZ1zTmwHD qrVYHiqM9xAKqdXqH7WAHu ZoMkvQ00fEZoTHqlQt2jhG gepIbuFG7e MXRqtxnto023OsNal8zbEG FpzGUeIYitNZH8R60ln3Y8 ZAQuRPVuDEQ9lBA2lB3oeX lnbjogbGVm dDsgdmVydGljYWwtYWxpZ2 57WNDllIufFcYswENoW6nr kvZJUA2vYxdwsAI+PHRkIH Z5rIwxOFxj GPTtbX1wCYAwS8e2ZwUaDz Y0GFhyO0XqnvA0JIUknJUx ASUnsQYMoX3gaaxsh2sjxb ogIzAwMDAw JKp6WDx7GONkpBzmOhWeCK S7AeA7PZG2yYXedR7bcJgq hzdsfT7iOhd+RklOOjwvdG Q+PHRkIHN0 yItpVQhlVMTflW6gOSIbA8 n3UfLkTpP4KJgmF2QdffI1 OVLllMCsZHNmrFQUdX4mdz lvg9mwnrnc WdXhRATxLCn6TMp6WIZhyQ jqEaHeRND6TrG2HED2oGUf yP0zoSnszcubkG7kEmj+TV JOOjwvdGQ+ AJQcJKN4rCwxQDajPQUefM 1kUWVrE9o2UnKjQjG7WXqo P7NpdiA6RAAweEXkTNFlbQ UFcA0lixzo f4wqufvyRzIwBUBbNLi9SU k5XYSicXgzVqDbGXA6QtY0 CTO4oPYmhC0itHfvyhpjuX 9wOyc+UGF5 CWJ0GA87FJ55G4RbScrcuP FibGU+PHRhYmxlIHdpZHRo PDczRZOhXpZlhXgkHD5yUe 9yZGVyLWNv bGxhcHNlOiBjb (more content not included)... Normal [facility] CT Lower Extremity w/o Contr ast Lefton [...] MD Transcribed by: JASON Technologist: BRICE, Rylee [facility] US PVR Lower EXT Complete Bi laton [...] Joya MD Transcribed by: JASON Technologist: HAYDEN [facility] Consent for Treatmenton 04-19 Consent for Treatment [id number] 0TIFF [facility] Physician Orderon 04-18-2024 Physician Order [id number]#1. 00TIFF [facility] Insurance Correspondenceon 0 04-17-2024 Insurance Correspondence [id number]. 00TIFF [facility] Patient Educationon 03-17-20 24 Patient Education Oncology [...] Where to find more information ? [employer]: www.cancer.org ? [employer]: www.auanet.org Contact a health care [...] flu (more content not included)... Normal [facility] Urology Office/Clinic Noteon 03-17-2024 Urology Office/Clinic Note Chief Complaint [facility] ER F/U HPI Staff Pt last seen in our office 01/18/24 DX: Elevated PSA, PIN, BPH, OAB, Chronic Prostatitis & ED S/P TRUS/Bx 01/01/24 [place] [facility] [place]04[place]24 due to sepsis. Then later Tx'd [...] advised pt to go to ER. [facility] ER 01/25/24 CC: burning w/urination. As well [...] HGPIN left mid. Pt presented to [facility] ER on 01/04/24 due to prostatitis, sepsis following TRUS/BX Pt was admitted and given IV abx, and oral abx on Sunday at discharge. Returned to ER 01/10/24 due to thrombophlebitis due to IV location on arm. [facility] ER again 01/25/24 due to sepsis secondary to UTI. PSA was drawn at that time. Advised pt this was PSA level was elevated due to infection, level not of concern. -Repeat PSA in 10 mos, order at [facility] 2. History of sepsis (Z86.19: Personal history of other infectious and parasitic diseases) [facility] ER 01/25/24 due to burning w/ urination. [...] [facility] [address], [place] [address] [phone] Additional Instructions: 10 mos w/ PSA Cortney (more content not included)... Normal [facility] Comment on above: Result Comment: Elec tronically Signed By: Nadir GRACÍA MD\.br\Date and Time Signed: 03/17/24 14:03 EDT\.br\Electronically Co-Signed By: Louise Oh\.br\Date and Time Co-Signed: 03/17/24 14:01 EDT POCT URINALYSIS DIPSTICK AUT OMATED W/O SCOPon 02-11-2024 Amorphous sediment LM Ql (Urine sed) [facility] Appearance (U) clear [facility] Bacteria LM Ql (Urine sed) [facility] Bilirubin Ql (U) Negative [facility] Casts LM.LPF (Urine sed) [#/Area] [facility] Color (U) yellow [facility] Crystals LM Nom (Urine sed) [facility] Epithelial cells.squamous LM.HPF (Urine sed) [#/Area] [employer] [facility] Flow cytometry specialist review Parth (Unsp spec) [Interp] [employer] [facility] Glucose Auto test strip (U) [Mass/Vol] Negative mg/dL [facility] Interpretation and review of laboratory results Normal [facility] Ketones [Mass/Vol] Negative mg/dL [facility] Leukocyte esterase Qn (U) [facility] Leukocyte esterase Test strip Ql (U) Negative [facility] Nitrite Ql (U) Negative [facility] pH (U) 5.5 [pH] 5 - 7 [facility] Protein Ql (U) Negative mg/dL [facility] RBC LM.HPF (Urine sed) [#/Area] [facility] RBC Ql (U) trace [facility] Specific gravity (U) [Rel density] 1.030 1.001 - 1.035 [facility] Transitional cells LM Ql (Urine sed) [facility] Urobilinogen Qn (U) 0.2 [facility] WBC LM.HPF (Urine sed) [#/Area] [facility] Monitor Recordon 01-30-2024 Monitor Record [id number]#1. 00TIFF Normal [facility] CBC w/ Auto Diffon 4 Basophils/100 WBC (Bld) 0.4 % Normal 0.0-2.0 [facility] Comment on above: Performed By: #### 1 9328745, 5561665, 6746869, 84462686, 23969815, 1855449, 9187563, 7105763 #### [facility] [address] [place] [address] Basophils/Leukocytes Auto (Bld) [Pure # fraction] 0.0 E9/L Normal 0.0-0.2 [facility] Comment on above: Performed By: #### 1 4169607, 0659092, 2166437, 48597126, 54311163, 5811230, 1963600, 3176015 #### [facility] [address] [place] [address] Eosinophils (Bld) [#/Vol] 0.2 E9/L Normal 0.0-0.5 [facility] Comment on above: Performed By: #### 1 2908772, 5164447, 2721800, 12675470, 80774156, 3800489, 3287744, 1996189 #### [facility] [address] [place] [address] Eosinophils/100 WBC (Bld) 3.3 % Normal 0.0-8.0 [facility] Comment on above: Performed By: #### 1 8192523, 2549755, 9215258, 96601141, 35203290, 4883168, 4229474, 9017934 #### [facility] [address] [place] [address] Erythrocyte distribution width (RBC) [Ratio] 12.9 % Normal 10.9-14.2 [facility] Comment on above: Performed By: #### 1 8041791, 8567035, 4932077, 29812082, 93278822, 6289788, 9120431, 9176038 #### [facility] [address] [place] [address] Hematocrit (Bld) [Volume fraction] 37.2 % Low 37.7-49.0 [facility] Comment on above: Performed By: #### 1 7241297, 5296458, 0669772, 85703769, 92807957, 0274533, 3269427, 4872948 #### [facility] [address] [place] [address] Hemoglobin (Bld) [Mass/Vol] 12.7 g/dL Low 13.5-17.5 [facility] Comment on above: Performed By: #### 1 1216889, 6241890, 7904481, 25635665, 44671398, 2215405, 6794907, 8817364 #### [facility] [address] [place] [address] Lymphocytes (Bld) [#/Vol] 1.5 E9/L Normal 1.0-4.0 [facility] Comment on above: Performed By: #### 1 9074240, 1949900, 0683394, 70689209, 32855384, 1570585, 4812315, 7347868 #### [facility] [address] [place] [address] Lymphocytes/100 WBC (Bld) 23.6 % Normal 14.0-50.0 [facility] Comment on above: Performed By: #### 1 6166862, 7671210, 5885880, 96674515, 30892092, 6895760, 8725516, 7851906 #### [facility] [address] [place] [address] MCH (RBC) [Entitic mass] 31.6 pg Normal 27.0-34.0 [facility] Comment on above: Performed By: #### 1 4352788, 3105424, 8933176, 77242337, 09927422, 1228761, 6470772, 2840660 #### [facility] [address] [place] [address] MCHC (RBC) [Mass/Vol] 34.2 g/dL Normal 31.4-36.0 [facility] Comment on above: Performed By: #### 1 3352717, 6831924, 2749901, 54253165, 00637268, 0867430, 4150979, 9110112 #### [facility] [address] [place] [address] MCV (RBC) [Entitic vol] 92.5 fL Normal 80.0-100.0 [facility] Comment on above: Performed By: #### 1 7479675, 2346691, 4588829, 96675357, 93322259, 1761653, 0949432, 3297129 #### [facility] [address] [place] [address] Monocytes (Bld) [#/Vol] 0.6 E9/L Normal 0.2-1.0 [facility] Comment on above: Performed By: #### 1 8509142, 3085275, 7316928, 50481422, 18919608, 3106360, 8491396, 4466450 #### [facility] [address] [place], [place] [address] Neutrophils (Bld) [#/Vol] 4.0 E9/L Normal 2.0-7.5 [facility] Comment on above: Performed By: #### 1 3334001, 7326849, 5293367, 85108987, 70234854, 3613360, 6132599, 0209360 #### [facility] [address] [place] [address] Neutrophils/100 WBC (Bld) 63.2 % Normal 36.0-75.0 [facility] Comment on above: Performed By: #### 1 2988352, 7120554, 7580056, 74854959, 12940885, 2965970, 6264887, 5866666 #### [facility] [address] [place] [address] Platelet 132.0 E9/L Low 150.0-500.0 [facility] Comment on above: Performed By: #### 1 7961455, 9123746, 4057345, 08345370, 72965064, 2938419, 6469545, 8277751 #### [facility] [address] [place] [address] Platelet mean volume (Bld) [Entitic vol] 8.7 fL Normal 6.4-10.8 [facility] Comment on above: Performed By: #### 1 6963789, 4905271, 8246794, 70818307, 17334395, 8660274, 2277422, 7936471 #### [facility] [address] [place] [address] RBC (Bld) [#/Vol] 4.0 E12/L Low 4.3-5.9 [facility] Comment on above: Performed By: #### 1 6787631, 6568229, 3627722, 17808229, 56381361, 5879708, 2261654, 8844162 #### [facility] [address] [place] [address] WBC corrected for nucl RBC Auto (Bld) [#/Vol] 6.3 E9/L Normal 4.0-11.0 [facility] Comment on above: Performed By: #### 1 0233985, 1567756, 0310652, 26446298, 88123347, 5810156, 9284326, 9050727 #### [facility] [address] [place] [address] Consent for PICC lineon 01-17 Consent for PICC line [id number]. 00TIFF Normal [facility] Consultation Noteon 01-29-20 Consultation Note Patient: STEVE [...] At risk for falls / SNOMED CT 007476732 / Possible Problem added when Risk for Falls Careplan was initiated. BPH with urinary obstruction / SNOMED CT 1289612509 / Confirmed Chronic prostatitis / SNOMED CT 48548936 / Confirmed Acute glaucoma / SNOMED CT 44518506 / Confirmed Glaucoma / SNOMED CT 54447352 / Confirmed Heart murmur / SNOMED CT 848815888 / Confirmed High cholesterol / SNOMED CT 62944618 / Confirmed High cholesterol / SNOMED CT 05212959 / Confirmed Hyperlipemia / SNOMED CT 27362844 / Confirmed Knee pain, left / SNOMED CT 41526608 / Confirmed OAB (overactive bladder) / SNOMED CT 8574079168 / Confirmed Screen for colon cancer / SNOMED CT 603816145 / Confirmed Elevated PSA / SNOMED CT 9946990457 / Confirmed PIN (prostatic intraepithelial neoplasia) / SNOMED CT 634583908 / Confirmed Histories Past Medical History: Resolved Plantar fasciitis ([id number]): Resolved. Comments: 03/07/2013 EDT 12:51 Lyubov Marquez RN RIGHT FOOT Family History: Hyperlipidemia Father Mother Procedure history: TRUS/Bx ([id number]) on 01/01/2024 at 58 Years. Colonoscopy ([id number]) on 10/26/2023 at 58 Years. Arthroscopy of knee ([id number]) on 05/07/2019 at 54 Years. Comments: 05/07/2019 [...] is unremar (more content not included)... Normal [facility] Comment on above: Result Comment: Elec tronically Signed By: Nikita Rodney M.D\.br\Date and Time Signed: 01/29/24 13:22 EDT Discharge Instructionson Discharge Instructions [id number] TIFF Rylee Arellano [facility] Discharge Note-Nursingon Discharge Note-Nursing STEVE WILLIAMSON :1965 [...] Test Results None Pharmacy Information [facility] [place] [facility] Discharge Instructions Please return to ER if symptoms change or worsen. Follow-up as instructed. Previously Scheduled Follow-Up Appointments Sunday 11:00 AM EDT With: Nadir GARCÍA MD Where: [facility] Discharge Note-Nursing STEVE WILLIAMSON :1965 Visit Date:01/25/2024 [...] Test Results None Pharmacy Information [facility] Discharge Instructions Please return to ER if symptoms change or worsen. Follow-up as instructed. Previously Scheduled Follow-Up Appointments Sunday 11:00 AM EDT With: Nadir GARCÍA MD Where: [facility] Normal [facility] HEMATOLOGYOrdered By: Tonny Reyes on 01-29-2024 Basophils/100 [...] Inpatient Clinical Summaryon 01-29-2024 Inpatient Clinical Summary [place] [address] Clinical Summary Person Information: Name: STEVE WILLIAMSON Age: 59 Years : 1965 Sex: Male PCP: DELPHINE BERRY NP Marital Status: Race: White Ethnicity: Non- or Language: Stateless Visit Id: Visit Reason: [id number] -BURNING W/URINATION Speciality: Acuity: Enc Type: Inpatient Med Service: Medical Arrival: 01/25/2024 13:32:51 Discharge: Dispo Type: Admitted as IP to this Hosp Address: [address] [place] [phone] Provider Notes: Diagnosis: Prostatitis; Sepsis; UTI (urinary [...] up: With: Address: When: Nikita Rodney [address] [facility] [place] [address] Business (1) Within 2 to 4 weeks With: Address: When: DELPHINE BERRY NP [address] [place] [address] Business (1) Within 5 to 7 days Comments: Call for followup appointment With: Address: When: RICKY LEVIN, Nadir Mercado, L [facility] [address], [place] [address] Within 2 weeks Comments: Call for followup appointment Type Location Start [facility] U[facility] Office Visit [facility] Mandeep 08/01/2024 11:00 AM 08/01/2024 11:15 AM Confirmed Patient Education Information: PICC Home Care Guide; Prostatitis, [id number] Normal [facility] Inpatient Patient Summaryon 01-29-2024 Inpatient Patient Summary [address] [address] Patient Discharge Instructions PERSON INFORMATION [...] When: Nikita Rodney [address] [place] [address] Business (1) Within 2 to 4 weeks With: Address: When: KRISTI MENA, [address] [address] Business (1) Within 5 to 7 days Comments: Call for followup appointment With: Address: When: RICKY LEVIN, Nadir R, URL [facility] [address], [place] [address] Within 2 weeks Comments: Call for followup appointment In the event that this physician does not participate in your insurance network, please consult with your insurance company to find a nearby participating provider. Type Location Start [facility] Office Visit [facility] NOAH [place] 08/01/2024 11:00 AM 08/01/2024 11:15 [...] Tablets By Mouth every day. Pharmacy Information: [facility] , Mail Order Comment: PATIENT [...] the right pl (more content not included)... [facility] Insurance Correspondence Off ice01-29-2024 Insurance Correspondence Office [id number]. 00TIFF [facility] Interdisciplinary Note - Merrill e Manageron 01-29-2024 Interdisciplinary Note - Computer Video Game Designer CRM to room to discuss DC planning. Patient is from home with his spouse. He will have transport at [place]. Patient verified PCP, home DME and insurance. Patient is here with Fever, Chills, Body aches. Has Bacteremia. Patient is assigned to Dr Brown. Patient will be seen by ID on Sunday. Patient will need antibiotics at [place]. The script was sent and patient is 100% coverage. Patient was accepted to [facility] for RN. Patient denied any DME needs. Patient was provided CRM contact, white board updated. CRM following Patient will DC home later today, see Dr Dumont notes. [facility] Comment on above: Result Comment: Elec tronically Signed By: Elba Guo\.br\Date and Time Signed: 01/29/24 09:47 EDT Interdisciplinary Note - Merrill e Manageron 01-28-2024 Interdisciplinary Note - Computer Video Game Designer CRM to room to discuss DC planning. Patient is from home with his spouse. He will have transport at DC. Patient verified PCP, home DME and insurance. Patient is here with Fever, Chills, Body aches. Has Bacteremia. Patient is assigned to Dr Brown. Patient will be seen by ID on Sunday. Patient will need antibiotics at [place]. He prefers HH route and he will learn administration. Patient denied any DME needs. Patient was provided CRM contact, white board updated. CRM following CRM placed HH referrals, will await acceptance 205 needs PICC and Rocephin 2000mg daily for [address] Brown, will send for IV med script will be sent today and await approval from and home infusion company [facility] has accepted, still waiting on final readiness from options home infusion Normal [facility] Comment on above: Result Comment: Elec tronically Signed By: Elba Guo\.br\Date and Time Signed: 01/28/24 16:05 EDT Monitor Recordon 01-28-2024 Monitor Record [id number] 30 [id number]#1. 00TIFF [facility] Monitor Record [id number]. 00TIFF [facility] Progress Note-Physicianon Progress Note-Physician Assessment/Plan Prostatitis (N41.9: [...] 0 Hospital Discharge Day > 30 Min 74940 PSA Total PSA Total PSA Total PSA Total PSA Total PSA Total Sbsq Hospital Care/Day Moderate 35 Minutes 88688 Sepsis (A41.9: Sepsis, unspecified organism) 2/2 above [...] Administration of drug, Saline, Heparin), 0 Normal [facility] Comment on above: Result Comment: Elec tronically [...] = na DAP = na Normal [facility] C Urineon 01-27-2024 Bacteria identified Cx Nom [...] Locations R1: This test was performed at: [facility], [address] [place] [address], [address]- , , Normal [facility] Comment on above: Performed By: #### 1 0965000, 3805715, 8241632, 15810148, 98043776, 4283874, 2419243, 2812259 #### [facility] [address] [place] [address] CBC w/ Auto Diffon 4 Basophils/100 WBC (Bld) 0.2 % Normal 0.0-2.0 [facility] Comment on above: Performed By: #### 2 419029 #### [facility] [address] [place] [address] Basophils/Leukocytes Auto (Bld) [Pure # fraction] 0.0 E9/L Normal 0.0-0.2 [facility] Comment on above: Performed By: #### 2 514330 #### [facility] [address] [place] [address] Eosinophils (Bld) [#/Vol] 0.1 E9/L Normal 0.0-0.5 [facility] Comment on above: Performed By: #### 2 144360 #### [facility] [address] [place] [address] Eosinophils/100 WBC (Bld) 1.0 % Normal 0.0-8.0 [facility] Comment on above: Performed By: #### 2 166199 #### [facility] [address] [place] [address] Erythrocyte distribution width (RBC) [Ratio] 12.8 % Normal 10.9-14.2 [facility] Comment on above: Performed By: #### 2 778753 #### [facility] [address] [place] [address] Hematocrit (Bld) [Volume fraction] 39.9 % Normal 37.7-49.0 [facility] Comment on above: Performed By: #### 2 331749 #### [facility] [address] [place] [address] Hemoglobin (Bld) [Mass/Vol] 13.3 g/dL Low 13.5-17.5 [facility] Comment on above: Performed By: #### 2 128520 #### [facility] [address] [place] [address] Lymphocytes (Bld) [#/Vol] 0.9 E9/L Low 1.0-4.0 [facility] Comment on above: Performed By: #### 2 133649 #### [facility] [address] [place] [address] Lymphocytes/100 WBC (Bld) 7.8 % Low 14.0-50.0 [facility] Comment on above: Performed By: #### 2 543604 #### [facility] [address] [place] [address] MCH (RBC) [Entitic mass] 31.0 pg Normal 27.0-34.0 [facility] Comment on above: Performed By: #### 2 226543 #### [facility] [address] [place] [address] MCHC (RBC) [Mass/Vol] 33.4 g/dL Normal 31.4-36.0 [facility] Comment on above: Performed By: #### 2 922200 #### [facility] [address] [place] [address] MCV (RBC) [Entitic vol] 92.9 fL Normal 80.0-100.0 [facility] Comment on above: Performed By: #### 2 416636 #### [facility] [address] [place] [address] Monocytes (Bld) [#/Vol] 1.0 E9/L Normal 0.2-1.0 [facility] Comment on above: Performed By: #### 2 635314 #### [facility] [address] [place] [address] Neutrophils (Bld) [#/Vol] 9.3 E9/L High 2.0-7.5 [facility] Comment on above: Performed By: #### 2 160556 #### [facility] [address] [place] [address] Neutrophils/100 WBC (Bld) 82.2 % High 36.0-75.0 [facility] Comment on above: Performed By: #### 2 612538 #### [facility] [address] [place] [address] Platelet 121.0 E9/L Low 150.0-500.0 [facility] Comment on above: Performed By: #### 2 259233 #### [facility] [address] [place] [address] Platelet mean volume (Bld) [Entitic vol] 8.2 fL Normal 6.4-10.8 [facility] Comment on above: Performed By: #### 2 224484 #### [facility] [address] [place] [address] RBC (Bld) [#/Vol] 4.3 E12/L Normal 4.3-5.9 [facility] Comment on above: Performed By: #### 2 159432 #### [facility] [address] [place] [address] WBC corrected for nucl RBC Auto (Bld) [#/Vol] 11.3 E9/L High 4.0-11.0 [facility] Comment on above: Performed By: #### 2 582933 #### [facility] [address] [place] [address] HEMATOLOGYOrdered By: SYSTEM SYSTEM on 01-27-2024 Basophils/100 [...] Remisol Heme Monitor Recordon 01-27-2024 Monitor Record [id number] 30 [id number]. 00TIFF Normal [facility] Monitor Record [id number] 30 [id number]#1. 00TIFF Normal [facility] Monitor Record [id number] 30 [id number]. 00TIFF Normal [facility] Monitor Record [id number] 30 [id number]#1. 00TIFF Normal [facility] Progress Note - Pharmacyon 0 01-27-2024 Progress Note - Pharmacy Vancomycin Phar nico to Dose Consult Note 1. Vanco Status: Vancomycin therapy has been discontinued. Vancomycin level(s) have been discontinued: Pharmacy vancomycin dosing service will sign off. Thank you for allowing us to participate in this patient's care. Please contact pharmacy if there are questions. Normal [facility] Progress Note-Physicianon Progress Note-Physician Basic Informatio n [...] Lymph Auto: 7.8 % Low (01/27/24 06:57:00) [place] Auto: 8.8 % (01/27/24 06:57:00) Eos Auto: 1 % (01/27/24 06:57:00) Basophil Auto: 0.2 % (01/27/24 06:57:00) Neutro Absolute: 9.3 E9/L High (01/27/24 06:57:00) Lymph Absolute: 0.9 E9/L Low (01/27/24 06:57:00) [place] Absolute: 1 E9/L (01/27/24 06:57:00) Eos Absolute: [...] 20 mg= 1 tab(s), Oral, Daily Normal [facility] Comment on above: Result Comment: Elec tronically Signed By: Christie LEVIN, Louisa\.br\Date and Time Signed: 01/27/24 11:17 EDT BMPon 01-26-2024 Anion gap [Moles/Vol] 12 mmol/L Normal 6-16 [facility] Comment on above: Performed By: #### 1 8569902, 0827701, 1115946, 26500967, 54854471, 5932355, 5770334, 8562019 #### [facility] [address] [place] [address] Calcium [Mass/Vol] 9.2 mg/dL Normal 8.9-11.1 [facility] Comment on above: Performed By: #### 1 8173081, 2724103, 8153239, 90381173, 08448992, 7365851, 8785660, 6917376 #### [facility] [address] [place] [address] Chloride [Moles/Vol] 104 mmol/L Normal 101-111 [facility] Comment on above: Performed By: #### 1 2474697, 6233193, 1076152, 24583965, 50102886, 6530658, 1624432, 8161431 #### [facility] [address] [place] [address] CO2 [Moles/Vol] 27 mmol/L Normal 21-31 [facility] Comment on above: Performed By: #### 1 2266228, 6156409, 6239646, 42599553, 79333170, 2950144, 0662397, 3035713 #### [facility] [address] [place] [address] Creatinine [Mass/Vol] 0.9 mg/dL Normal 0.5-1.3 [facility] Comment on above: Performed By: #### 1 9427532, 1084668, 0404956, 49709082, 25291829, 6541088, 1129040, 0119452 #### [facility] [address] [place] [address] Glucose [Mass/Vol] 100 mg/dL Normal 55-199 [facility] Comment on above: Performed By: #### 1 1968520, 9535940, 9584920, 61552135, 16227520, 1480588, 3837569, 8603325 #### [facility] [address] [place] [address] Potassium [Moles/Vol] 4.0 mmol/L Normal 3.5-5.3 [facility] Comment on above: Performed By: #### 1 4922872, 7938714, 6389801, 29284358, 00040011, 5544346, 8189270, 2990283 #### [facility] [address] [place] [address] Sodium [Moles/Vol] 139 mmol/L Normal 135-145 [facility] Comment on above: Performed By: #### 1 1103831, 1924017, 1281655, 07342744, 75436121, 0404874, 5066195, 0754943 #### [facility] [address] [place] [address] Urea nitrogen [Mass/Vol] 12 mg/dL Normal 5-21 [facility] Comment on above: Performed By: #### 1 7331928, 4680703, 9934188, 24832097, 75819101, 1361450, 5526278, 3292380 #### [facility] [address] [place] [address] Urea nitrogen/Creatinine [Mass ratio] 13 No Units Normal 10-20 [facility] Comment on above: Performed By: #### 1 8338048, 1666904, 4540109, 54655895, 46966756, 9095380, 3234817, 6970429 #### [facility] [address] [place] [address] CBC w/ Auto Diffon 4 Basophils/100 WBC (Bld) 0.1 % Normal 0.0-2.0 [facility] Comment on above: Performed By: #### 1 3807430, 6207546, 9856438, 20481239, 60955118, 7179569, 8077922, 5970066 #### [facility] [address] [place] [address] Basophils/Leukocytes Auto (Bld) [Pure # fraction] 0.0 E9/L Normal 0.0-0.2 [facility] Comment on above: Performed By: #### 1 2062467, 9125127, 0130804, 22283299, 89644887, 7196616, 3891875, 2937227 #### [facility] [address] [place] [address] Eosinophils (Bld) [#/Vol] 0.0 E9/L Normal 0.0-0.5 [facility] Comment on above: Performed By: #### 1 6434748, 1281577, 8807170, 73961876, 77855211, 1903279, 4229648, 9875200 #### [facility] [address] [place] [address] Eosinophils/100 WBC (Bld) 0.3 % Normal 0.0-8.0 [facility] Comment on above: Performed By: #### 1 3992559, 5070403, 3099992, 34225792, 79144453, 0449073, 0385131, 2197396 #### [facility] [address] [place] [address] Erythrocyte distribution width (RBC) [Ratio] 12.9 % Normal 10.9-14.2 [facility] Comment on above: Performed By: #### 1 3408600, 7051377, 9234988, 44384282, 55166697, 8528504, 7024700, 8091501 #### [facility] [address] [place] [address] Hematocrit (Bld) [Volume fraction] 43.0 % Normal 37.7-49.0 [facility] Comment on above: Performed By: #### 1 0607127, 2003696, 8475532, 49229549, 92528189, 3039760, 3240059, 6981941 #### [facility] [address] [place] [address] Hemoglobin (Bld) [Mass/Vol] 14.3 g/dL Normal 13.5-17.5 [facility] Comment on above: Performed By: #### 1 6624387, 1129306, 0703278, 89691264, 84643558, 2732035, 2801354, 0995107 #### [facility] [address] [place] [address] Lymphocytes (Bld) [#/Vol] 1.3 E9/L Normal 1.0-4.0 [facility] Comment on above: Performed By: #### 1 0010777, 6969602, 6791012, 08735907, 13528045, 1521184, 4712622, 0063746 #### [facility] [address] [place] [address] Lymphocytes/100 WBC (Bld) 8.0 % Low 14.0-50.0 [facility] Comment on above: Performed By: #### 1 8485439, 1772930, 2788663, 65864095, 66870840, 8579707, 9574119, 6117511 #### [facility] [address] [place] [address] MCH (RBC) [Entitic mass] 31.0 pg Normal 27.0-34.0 [facility] Comment on above: Performed By: #### 1 4108157, 3455775, 1974934, 97214709, 48045606, 5838917, 6893769, 8333765 #### [facility] [address] [place] [address] MCHC (RBC) [Mass/Vol] 33.3 g/dL Normal 31.4-36.0 [facility] Comment on above: Performed By: #### 1 7972336, 8786547, 9465637, 90605266, 29117731, 8991209, 7920549, 4634193 #### [facility] [address] [place] [address] MCV (RBC) [Entitic vol] 93.1 fL Normal 80.0-100.0 [facility] Comment on above: Performed By: #### 1 6746085, 6611238, 1240221, 31520888, 05559482, 5434931, 6010578, 9196825 #### [facility] [address] [place] [address] Monocytes (Bld) [#/Vol] 1.2 E9/L High 0.2-1.0 [facility] Comment on above: Performed By: #### 1 9498461, 3691006, 4895097, 38729289, 45880706, 0669948, 4168758, 7723284 #### [facility] [address] [place] [address] Neutrophils (Bld) [#/Vol] 13.6 E9/L High 2.0-7.5 [facility] Comment on above: Performed By: #### 1 8285943, 3745118, 4282776, 80593383, 50490497, 3786473, 4454322, 7253434 #### [facility] [address] [place] [address] Neutrophils/100 WBC (Bld) 84.4 % High 36.0-75.0 [facility] Comment on above: Performed By: #### 1 5442179, 5513086, 2606163, 73062346, 82075172, 7460919, 2056682, 9971888 #### [facility] [address] [place] [address] Platelet 140.0 E9/L Low 150.0-500.0 [facility] Comment on above: Performed By: #### 1 3920417, 7860810, 7560971, 17626117, 66200793, 7800498, 6451432, 0899650 #### [facility] [address] [place] [address] Platelet mean volume (Bld) [Entitic vol] 8.3 fL Normal 6.4-10.8 [facility] Comment on above: Performed By: #### 1 8391908, 5582631, 1040939, 61039625, 25286821, 6653082, 9059511, 6826387 #### [facility] [address] [place] [address] RBC (Bld) [#/Vol] 4.6 E12/L Normal 4.3-5.9 [facility] Comment on above: Performed By: #### 1 2541468, 5905573, 9264833, 99277523, 59957521, 4952194, 3597848, 1745521 #### [facility] [address] [place] [address] WBC corrected for nucl RBC Auto (Bld) [#/Vol] 16.1 E9/L High 4.0-11.0 [facility] Comment on above: Result Comment: Slid e review performed Performed By: #### 1 3112118, 4709610, 5007709, 15011758, 08394857, 8688463, 6937489, 3798356 #### [facility] [address] [place] [address] CHEMISTRYOrdered By: SYSTEM SYSTEM on 01-26-2024 Anion [...] Number and Complexity of Problems Differential Diagnosis: [facility] Data External documents reviewed: [] My EKG [...] 1000 mL 1,000 mL, 1000 mL, IV [id number] [F] 1000 mg + GenDil 100 mL, [...] Prescription List (more content not included)... Normal [facility] Comment on above: Result Comment: Elec tronically [...] Remisol Heme Comment on above: Result Comment: aJdon watters review performed Insurance Correspondence Off iceon 01-26-2024 Insurance Correspondence Office [id number]#1. 00TIFF Normal [facility] Magnesiumon 01-26-2024 Magnesium [Mass/Vol] 1.8 mg/dL Normal 1.3-2.4 [facility] Comment on above: Performed By: #### 1 9834308, 9773093, 7564433, 86919979, 68995464, 4041257, 5154814, 3769230 #### [facility] [address] [place] [address] Monitor Recordon 01-26-2024 Monitor Record [id number]. 00TIFF Normal [facility] Monitor Record [id number]. 00TIFF Normal [facility] Progress Note-Physicianon Progress Note-Physician Basic Informatio n [...] Lymph Auto: 8 % Low (01/26/24 06:23:00) [place] Auto: 7.2 % (01/26/24 06:23:00) Eos Auto: 0.3 % (01/26/24 06:23:00) Basophil Auto: 0.1 % (01/26/24 06:23:00) Neutro Absolute: 13.6 E9/L High (01/26/24 06:23:00) Lymph Absolute: 1.3 E9/L (01/26/24 06:23:00) [place] Absolute: 1.2 E9/L High (01/26/24 06:23:00) Eos [...] 40 mg (more content not included)... Normal [facility] Comment on above: Result Comment: Elec tronically Signed By: Christie LEVIN, Louisa\.br\Date and Time Signed: 01/26/24 11:09 EST eGFRon 01-26-2024 eGFR 100 mL/min/1.73 m2 Normal >=59 [facility] Comment on above: Order Comment: Order added by Discern Expert. Performed By: #### 1 6574549, 0849791, 8763258, 29860601, 60452657, 5189655, 1251176, 6650873 #### [facility] [address] [place] [address] AMPICILLIN:SUSC:PT:ISOLATE:O RDQN:MICOrdered By: Maryjo Ventura on 01-25-2024 Ampicillin EUGENE [Susc] Escherichia coli In 1 of 2 blood culture bottles drawn. Isolated from aerobic bottle Preliminary gram stain result of gram negative rods given to Dr. Soriano 01/26/2024 10:57:52 by [facility] AMPICILLIN:SUSC:PT:ISOLATE:O RDQN:MICOrdered By: Tammy Krishna on 01-25-2024 Ampicillin EUGENE [Susc] >100,000 cfu/ml Escherichia coli [facility] Ampicillin EUGENE [Susc]Ordered By: Maryjo Ventura on 01-25-2024 Escherichia coli Escherichia coli [facility] Ampicillin EUGENE [Susc]Ordered By: Tammy Krishna on 01-25-2024 Escherichia coli Escherichia coli [facility] BMPon 01-25-2024 Anion gap [Moles/Vol] 13 mmol/L Normal 6-16 [facility] Comment on above: Performed By: #### 1 1051773, 6464786, 5903847, 81535226, 68749052, 6250451, 6786660, 1105654 #### [facility] [address] [place] [address] Calcium [Mass/Vol] 9.8 mg/dL Normal 8.9-11.1 [facility] Comment on above: Performed By: #### 1 3338842, 7633027, 3409513, 99914058, 57063788, 0009342, 0862196, 7737064 #### [facility] [address] [place] [address] Chloride [Moles/Vol] 100 mmol/L Low 101-111 [facility] Comment on above: Performed By: #### 1 2680396, 5443483, 1861156, 63235305, 37009214, 8847058, 4920428, 1565288 #### [facility] [address] [place] [address] CO2 [Moles/Vol] 28 mmol/L Normal 21-31 [facility] Comment on above: Performed By: #### 1 7140794, 0440943, 6640332, 48545409, 58217592, 5277196, 4387444, 1111709 #### [facility] [address] [place] [address] Creatinine [Mass/Vol] 0.9 mg/dL Normal 0.5-1.3 [facility] Comment on above: Performed By: #### 1 9076617, 8911764, 9406429, 38865833, 64322257, 2591472, 8875613, 8483741 #### [facility] [address] [place] [address] Glucose [Mass/Vol] 95 mg/dL Normal 55-199 [facility] Comment on above: Performed By: #### 1 6251101, 2529937, 5628771, 30294163, 33491733, 1705022, 5145780, 4547988 #### [facility] [address] [place] [address] Potassium [Moles/Vol] 3.9 mmol/L Normal 3.5-5.3 [facility] Comment on above: Performed By: #### 1 1254486, 4659699, 3989478, 96700205, 76311955, 7905368, 0545318, 2549383 #### [facility] [address] [place] [address] Sodium [Moles/Vol] 137 mmol/L Normal 135-145 [facility] Comment on above: Performed By: #### 1 8474009, 5728587, 3901583, 85346051, 63471953, 2349497, 1333726, 9486778 #### [facility] [address] [place], [place] [address] Urea nitrogen [Mass/Vol] 17 mg/dL Normal 5-21 [facility] Comment on above: Performed By: #### 1 2360104, 6217109, 8149656, 54222470, 34668761, 3673052, 6166784, 1206339 #### [facility] [address] [place], [place] [address] Urea nitrogen/Creatinine [Mass ratio] 19 No Units Normal 10-20 [facility] Comment on above: Performed By: #### 1 8213607, 6267462, 7057502, 47500422, 69073765, 9397716, 1239157, 4210926 #### [facility] [address] [place] [address] CBC w/ Auto Diffon 4 Basophils/100 WBC (Bld) 0.1 % Normal 0.0-2.0 [facility] Comment on above: Performed By: #### 1 5164620, 6966470, 8955126, 84746814, 20883522, 6492575, 6722317, 5256432 #### [facility] [address] [place] [address] Basophils/Leukocytes Auto (Bld) [Pure # fraction] 0.0 E9/L Normal 0.0-0.2 [facility] Comment on above: Performed By: #### 1 0881165, 2858409, 0834564, 86397555, 93732735, 8508705, 6817443, 7048224 #### [facility] [address] [place] [address] Eosinophils (Bld) [#/Vol] 0.0 E9/L Normal 0.0-0.5 [facility] Comment on above: Performed By: #### 1 4316202, 1760031, 7764946, 63212171, 48495934, 1126138, 3969632, 5887907 #### [facility] [address] [place] [address] Eosinophils/100 WBC (Bld) 0.2 % Normal 0.0-8.0 [facility] Comment on above: Performed By: #### 1 3101211, 6381377, 9295459, 89518604, 07828884, 6068067, 6086325, 8196626 #### [facility] [address] [place] [address] Lymphocytes (Bld) [#/Vol] 0.8 E9/L Low 1.0-4.0 [facility] Comment on above: Performed By: #### 1 3733515, 8077753, 6831344, 13511347, 26278899, 0301759, 2504428, 2931391 #### [facility] [address] [place] [address] Lymphocytes/100 WBC (Bld) 5.0 % Low 14.0-50.0 [facility] Comment on above: Performed By: #### 1 9966900, 3568734, 6522656, 65378206, 22752919, 9226263, 9604263, 9409743 #### [facility] [address] [place] [address] Monocytes (Bld) [#/Vol] 1.1 E9/L High 0.2-1.0 [facility] Comment on above: Performed By: #### 1 0891640, 5961947, 7775943, 44122793, 42848992, 4584118, 5059185, 3376660 #### [facility] [address] [place] [address] Neutrophils (Bld) [#/Vol] 13.8 E9/L High 2.0-7.5 [facility] Comment on above: Performed By: #### 1 2176979, 8404027, 4198233, 93159753, 69256136, 6518781, 9786473, 8122270 #### [facility] [address] [place] [address] Neutrophils/100 WBC (Bld) 87.9 % High 36.0-75.0 [facility] Comment on above: Performed By: #### 1 3142589, 9459598, 6483577, 13995623, 62307067, 8203023, 3413296, 2576360 #### [facility] [address] [place] [address] Erythrocyte distribution width (RBC) [Ratio] 12.8 % Normal 10.9-14.2 [facility] Comment on above: Performed By: #### 1 6947893, 0179628, 1482317, 56976590, 15196258, 2033243, 3783323, 4876409 #### [facility] [address] [place] [address] Hematocrit (Bld) [Volume fraction] 42.9 % Normal 37.7-49.0 [facility] Comment on above: Performed By: #### 1 9855479, 5054237, 5996110, 65946966, 05074235, 2774751, 5880996, 9150403 #### [facility] [address] [place] [address] Hemoglobin (Bld) [Mass/Vol] 14.6 g/dL Normal 13.5-17.5 [facility] Comment on above: Performed By: #### 1 3145811, 9474007, 1581721, 13492727, 60195468, 7888459, 2843356, 0894886 #### [facility] [address] [place] [address] MCH (RBC) [Entitic mass] 31.6 pg Normal 27.0-34.0 [facility] Comment on above: Performed By: #### 1 6409511, 9861905, 5300731, 67384302, 19629537, 1811497, 4382210, 7997507 #### [facility] [address] [place] [address] MCHC (RBC) [Mass/Vol] 34.0 g/dL Normal 31.4-36.0 [facility] Comment on above: Performed By: #### 1 5316437, 8777902, 6408997, 97839709, 58991113, 0850523, 4317406, 3118897 #### [facility] [address] [place] [place] [address] MCV (RBC) [Entitic vol] 92.8 fL Normal 80.0-100.0 F [facility] Comment on above: Performed By: #### 1 1737172, 6842622, 4872612, 41954178, 42569477, 6165076, 3263045, 6978569 #### [facility] [address] [place] [place] [address] 62144 Platelet mean volume (Bld) [Entitic vol] 8.6 fL Normal 6.4-10.8 [facility] Comment on above: Performed By: #### 1 1326473, 2638345, 1120291, 53683972, 95008846, 2541770, 4872192, 9234878 #### [facility] [address] [place] [place] [address]752 Platelets (Bld) [#/Vol] 143.0 E9/L Low 150.0-500.0 [facility] Comment on above: Performed By: #### 1 2498338, 8918772, 2602849, 33102492, 08409664, 1870156, 7729710, 3484122 #### [facility] [address] [place] [address] RBC (Bld) [#/Vol] 4.6 E12/L Normal 4.3-5.9 [facility] Comment on above: Performed By: #### 1 5658692, 6897837, 5121155, 53484104, 33935556, 8798982, 6597974, 9009762 #### [facility] [address] [place] [address] WBC corrected for nucl RBC Auto (Bld) [#/Vol] 15.7 E9/L High 4.0-11.0 [facility] Comment on above: Performed By: #### 1 1667142, 9351588, 9046357, 93516185, 27254377, 6727383, 4598791, 2660559 #### [facility] [address] [place] [address] CHEMISTRYOrdered By: SYSTEM SYSTEM on 01-25-2024 Lactic [...] methods and specificity. Values obtained with different scaffolder's assays cannot be used interchangeably. The methodology used to obtain this result was chemiluminescence using [employer]by [employer]'s Access Hybritech PSA reagent and Access Hybritech [...] for this result was chemiluminescence using [employer]'s Access Hybritech PSA reagent. Protein [Mass/Vol] 7.0 [...] High Sensitivity Troponin I Instructions For Use, Yodio, June 2018) CMPon 01-25-2024 Albumin [Mass/Vol] 4.6 g/dL Normal 3.3-5.0 [facility] Comment on above: Performed By: #### 1 7559962, 1039857, 7675900, 77827782, 91907026, 7354521, 9361502, 3991572 #### [facility] [address] [place] [address]952 Albumin/Globulin (S) [Mass conc ratio] 1.9 Normal 1.1-2.2 [facility] Comment on above: Performed By: #### 1 1522442, 7180044, 3117674, 50954817, 56574126, 5300243, 6899807, 2483344 #### [facility] [address] [place] [address] ALP [Catalytic activity/Vol] 55 Int._Unit/L Normal 21-98 [facility] Comment on above: Performed By: #### 1 5553606, 3883182, 0687436, 41797421, 14494648, 4530256, 3315587, 4718974 #### [facility] [address] [place] [address] ALT No additional P-5'-P [Catalytic activity/Vol] 21 Int._Unit/L Normal 6-46 [facility] Comment on above: Performed By: #### 1 7349634, 7656299, 2723481, 63354402, 83078069, 1702434, 8518658, 2091272 #### [facility] [address] [place] [address] AST [Catalytic activity/Vol] 18 Int._Unit/L Normal 5-43 [facility] Comment on above: Performed By: #### 1 6422617, 1953397, 3278450, 67229497, 59903186, 3188911, 2070893, 7338375 #### [facility] [address] [place] [address] Bilirubin [Mass/Vol] 0.9 mg/dL Normal 0.0-1.1 [facility] Comment on above: Performed By: #### 1 6688486, 2535284, 2618792, 97831889, 19327389, 9500644, 7567653, 0936013 #### [facility] [address] [place] [address] Globulin (S) [Mass/Vol] 2.4 g/dL Normal 1.4-4.0 F [facility] Comment on above: Performed By: #### 1 1223585, 9911113, 9709118, 76296989, 80843511, 9212804, 5145075, 9759182 #### [facility] [address] [place] [address] Protein [Mass/Vol] 7.0 g/dL Normal 6.0-7.8 [facility] Comment on above: Performed By: #### 1 8911961, 9504387, 3617302, 34748133, 42791689, 9389047, 2542717, 1063157 #### [facility] [address] [place] [address] COAGULATIONOrdered By: Leticia King on 01-25-2024 aPTT Coag (PPP) [Time] 30.5 s Normal 25.1 - 36.5 second(s) [facility] Auto Coag Comment on above: Interpretive Data: [...] same coagulation reagent and instrumentation as [facility]. Currently there are no coagulation studies available worldwide for children to 14 days, and no normal ranges. Heparin therapeutic range (represented by Anti-Factor Xa activity of 0.2 - 0.4 U/mL) corresponds to PTT of 56.6 - 109.0 sec. INR Coag (PPP) [Relative time] 1.01 {INR} Invalid Interpretation Code [facility] Auto Coag Comment on above: Interpretive Data: I NR results are specifically intended to assess patients stabilized on long-term Anticoagulation therapy suggested INR s Less Intensive Anticoagulation 2.0 3.0 Conventional Range 3.0 4.5 PT Coag (PPP) [Time] 11.3 s Normal 9.4 - 1 2.5 second(s) [facility] Auto Coag Comment on above: Interpretive Data: [...] same coagulation reagent and instrumentation as [facility]. Currently there are no coagulation studies available [...] 370 Contrast amount in ml's: 100 Normal [facility] Consent for Treatmenton Consent for Treatment [id number] 0TIFF Normal [facility] Consent for Treatment [id number] 4030 [id number] 0TIFF Normal [facility] ED Clinical Summaryon 2023 ED Clinical Summary [place] [id number] ED Clinical Summary Person Information Name: STEVE WILLIAMSON Shayna/[facility] Age: 59 Years : 1965 Sex: Male Language: Stateless PCP: DELPHINE BERRY NP Marital Status: Visit Id: Visit Reason: [id number] -BURNING W/URINATION Speciality: Acuity: 3 Enc Type: Inpatient Med Service: Emergency Arrival: 01/25/2024 13:32:51 Discharge: LOS: 000 08:29 Checkin: 01/25/2024 13:32:51 Checkout: 01/25/2024 22:01:01 Dispo Type: Admitted as IP to this [facility] EVENTS: Event Name Event Status Request Date/Time [...] 20:18:48 01/25/2024 20:18:48 01/25/2024 20:18:48 ADDRESS: [address] [place] [id number] PHYS DOC NOTES: MEDICAL INFORMATION: Prescriptions Given: [...] Prostatitis; Sepsis; UTI (urinary tract infection) Normal [facility] ED Patient Education Noteon 01-25-2024 ED Patient Education Note Normal [facility] ED Patient Summaryon ED Patient Summary [place] [address] Patient Discharge Instructions Person Information Name: STEVE WILLIAMSON Age: 59 Years Arrival Date: 01/25/2024 13:32:51 Discharge Diagnosis: Prostatitis; Sepsis; UTI (urinary tract infection) Primary Care Physician: DELPHINE BERRY NP Provider Information Primary Provider: Scotty Martinez DO [employer] Operator:None The exam and treatment you received in the Emergency Department were for an urgent problem and are not intended as complete care. It is important that you follow up with a doctor, nurse practitioner, or physician?s commercial real estate assistant for ongoing care. If your symptoms [...] opioids can be used to help relieve zbfsqzoq-ig-ehfoup pain and are often prescribed following a [...] be struggling with addiction, tell your health foster care worker and ask for guidance or call [facility] [place] Helpline at [phone]. y Source: [place] Department of Health and Human Services/Center for Disease Control & Prevention [facility] Medications Given: Medi (more content not included)... Normal [facility] - Chemistry and C hemistry - [...] Lactic Acid Lvl 1.5 mmol/L Normal 0.5-2.2 [facility] Comment on above: Performed By: #### 2 456852 ####[facility] [address] [place] [address] Lactic Acid Lvl 1.8 mmol/L Normal 0.5-2.2 [facility] Comment on above: Performed By: #### 1 5794911, 4752196, 1777027, 81479406, 90818899, 9367832, 9122140, 9159300 #### [facility] [address] [place] [address] No Panel InformationOrdered By: ANGPROCESSSERDIGN[facility] MICROBIOLOGY on 01-25-2024 Blood Culture Charcoal No growth at 4 da ys. Final to follow at 7 days. [facility] PSA Free & Totalon Free PSA/Total PSA [Mass fraction] 25.5 % Normal >=25.0 [facility] Comment on above: Performed By: #### 1 9234947, 6803817, 1236786, 62592074, 85019520, 9072773, 0882918, 6098415 ####[facility] [address] [place] [address] Prostate specific Ag [Mass/Vol] 15.3 ng/mL High 0.1-3.5 [facility] Comment on above: Result Comment: The concentration of PSA determined by different manufacturers can vary due to differences in assay methods and reagent specificity. Values obtained from different assay methods cannot be used interchangeably. The methodology used for this result was chemiluminescence using [employer]'s Access Hybritech PSA reagent. Performed By: #### 1 5544262, 9184435, 8739088, 53899909, 47577378, 4968802, 3676693, 0704431 ####[facility] [address] [place] [address] Free PSA [Mass/Vol] 3.9 ng/mL Invalid Interpretation Code [facility] Comment on above: Result Comment: The concentration of free PSA and total PSA determined with assays from different manufacturers can vary due to differences in assay methods and specificity. Values obtained with different scaffolder's assays cannot be used interchangeably. The methodology used to obtain this result was chemiluminescence using [employer]'s Access Hybritech PSA reagent and Access Hybritech free PSA reagent. Performed By: #### 1 6078832, 3462218, 5915100, 98221941, 04038365, 7031122, 2697490, 9051036 ####[facility] [address] [place] [address] PT & PTTon 01-25-2024 aPTT Coag (PPP) [Time] 30.5 second(s) Normal 25.1-36.5 [facility] Comment on above: Result Comment: Para meter [...] same coagulation reagent and instrumentation as [facility]. Currently there are no coagulation studies available worldwide for children to 14 days, and no normal ranges. Heparin therapeutic range (represented by Anti-Factor Xa activity of 0.2 - 0.4 U/mL) corresponds to PTT of 56.6 - 109.0 sec. Performed By: #### 1 0196098, 6155966, 0077907, 51910354, 70917922, 9081193, 2001964, 1920890 #### [facility] [address] [place] [address] INR Coag (PPP) [Relative time] 1.01 {INR} Invalid Interpretation Code [facility] Comment on above: Result Comment: INR results are specifically intended to assess patients stabilized on long-term Anticoagulation therapy suggested INR?s ?Less Intensive Anticoagulation? 2.0 ? 3.0 Conventional Range 3.0 ? 4.5 Performed By: #### 1 5821686, 8156233, 1615970, 68574989, 38948182, 2365424, 6624885, 2965279 #### [facility] [address] [place] [address] PT Coag (PPP) [Time] 11.3 second(s) Normal 9.4-12.5 [facility] Comment on above: Result Comment: 15 d [...] same coagulation reagent and instrumentation as [facility]. Currently there are no coagulation studies available worldwide for children to 14 days, and no normal ranges. Performed By: #### 1 3861932, 8793080, 8028813, 53708700, 44581317, 6104516, 9013771, 6407352 #### [facility] [address] [place] [address] Progress Note - Pharmacyon 0 01-25-2024 Progress [...] questions please contact the pharmacy at extension [phone]. Age: 59 Years Allergies: penicillins Weight: Last [...] Lymph Auto: 5 % Low (01/25/24 14:51:00) [place] Auto: 6.8 % (01/25/24 14:51:00) Eos Auto: 0.2 % (01/25/24 14:51:00) Basophil Auto: 0.1 % (01/25/24 14:51:00) Neutro Absolute: 13.8 E9/L High (01/25/24 14:51:00) Lymph Absolute: 0.8 E9/L Low (01/25/24 14:51:00) [place] Absolute: 1.1 E9/L High (01/25/24 14:51:00) Eos [...] UA Bacteria: 1+ Abnormal (01/25/24 14:05:00) Normal [facility] Troponinon 01-25-2024 Troponin 5.00 pg/mL Low 15.90-38.40 [facility] Comment on above: Result Comment: The 95% CI (Confidence Interval) PPV (Positive Predictive Value) for myocardial infarction in females is 38 pg/mL, in males 51 pg/mL. The results should be used in conjunction with clinical conditions of myocardial infarction. (Access High Sensitivity Troponin I Instructions For Use, Abby [employer]Code, June 2018) Performed By: #### 1 8651855, 4465491, 3806049, 62023830, 31516936, 0892241, 4727265, 3210223 #### [facility] [address] [place] [address] UA With Cult Reflexon 2023 Bacteria LM Ql (Urine sed) 1+ /HPF Abnormal Trace [facility] Comment on above: Performed By: #### 1 5711154, 6134106, 9681781, 43948334, 43018041, 2164182, 4927778, 5232284 #### [facility] [address] [place] [address] Bilirubin Ql (U) Negative Normal Negative [facility] Comment on above: Performed By: #### 1 3788538, 6650027, 6537151, 16155143, 69176855, 0286652, 5421780, 6231637 #### [facility] [address] [place] [address] Clarity (U) CLOUDY Abnormal Clear [facility] Comment on above: Performed By: #### 1 4235491, 0898271, 1671652, 57455337, 65317346, 0060595, 9517950, 7089837 #### [facility] [address] [place] [address] Color (U) STRAW Invalid Interpretation Code [facility] Comment on above: Performed By: #### 1 6091158, 1853040, 3402144, 85136484, 73349530, 5802456, 5766221, 9222188 #### [facility] [address] [place] [address] Epithelial cells.squamous LM.HPF (Urine sed) [#/Area] 0-2 Normal 0-2 [facility] Comment on above: Performed By: #### 1 0637343, 1736128, 6253349, 49872680, 43425106, 6250693, 7445269, 3251985 #### [facility] [address] [place] [address] Glucose Test strip (U) [Mass/Vol] Negative Normal Negative [facility] Comment on above: Performed By: #### 1 9850071, 6826992, 6414668, 68438337, 11340040, 3718798, 8151090, 9714254 #### [facility] [address] [place] [address] Hemoglobin Ql (U) 3+ Abnormal Negative [facility] Comment on above: Performed By: #### 1 4138172, 7290913, 9404992, 36670106, 54718451, 0818523, 5853383, 9351561 #### [facility] [address] [place] [address] Ketones (U) [Mass/Vol] Negative Normal Negative [facility] Comment on above: Performed By: #### 1 9019107, 8361298, 6777693, 70258715, 32235936, 7937318, 5896327, 0356681 #### [facility] [address] [place] [address] Riley.plasma/Riley.R BC (Bld) [Mass ratio] 21-30 Abnormal 0-3 [facility] Comment on above: Performed By: #### 1 4783904, 7402467, 2777749, 17838700, 88600055, 9585250, 7264026, 9048592 #### [facility] [address] [place] [address] Nitrite Ql (U) Negative Normal Negative [facility] Comment on above: Performed By: #### 1 0164967, 2095790, 2404278, 30719727, 65994202, 2869136, 6874358, 2390793 #### [facility] [address] [place] [address] pH (U) 6.0 [pH] Invalid Interpretation Code 5.0-9.0 [facility] Comment on above: Performed By: #### 1 9917362, 8274997, 5278388, 69055095, 22436340, 4340730, 1780764, 3740595 #### [facility] [address] [place] [address] Protein (U) [Mass/Vol] 1+ Abnormal Negative [facility] Comment on above: Performed By: #### 1 0315455, 5417553, 1753525, 24209727, 75527985, 7698626, 2161398, 2143480 #### [facility] [address] [place] [address] Specific gravity (U) [Rel density] <=1.005 Invalid Interpretation Code 1.005-1.030 [facility] Comment on above: Performed By: #### 1 1870839, 5958065, 2326709, 06485719, 15220658, 2794557, 0150217, 9054989 #### [facility] [address] [place] [address] Type of Urine collection method Clean Catch Normal [facility] Comment on above: Performed By: #### 1 7488027, 4709564, 6075635, 64084015, 84012481, 7833380, 3442472, 9714319 #### [facility] [address] [place] [address] Urobilinogen Qn (U) 0.2 {Kishan'U}/dL Normal 0.0-1.0 [facility] Comment on above: Performed By: #### 1 4500896, 0447400, 8247007, 00474473, 03068630, 3038552, 8495548, 5875928 #### [facility] [address] [place] [address] WBC Auto Ql (U) 3+ Abnormal Negative [facility] Comment on above: Performed By: #### 1 1409609, 1543886, 6428009, 98145078, 28321784, 3116245, 6524007, 1363665 #### [facility] [address] [place] [address] WBC LM.HPF (Urine sed) [#/Area] /[HPF] Abnormal 0-5 [facility] Comment on above: Performed By: #### 1 5720023, 6029164, 1676088, 02788309, 46639915, 8816158, 5394636, 8066270 #### [facility] [address] [place] [address] URINALYSISOrdered By: Lizzy Rice on 01-25-2024 Bacteria [...] PM) Normal Negative [facility] UA Auto SS Riley.plasma/Riley.R BC (Bld) [Mass ratio] 21-30 /HPF Invalid Interpretation Code 0-3/HPF [facility] UA Auto SS Nitrite Ql (U) Negative (01/25/24 2:05 PM) Normal Negative [facility] UA Auto SS pH (U) 6.0 *NA* (3/8/24 2:05 PM) Invalid Interpretation Code 5.0 - 9.0 [facility] UA Auto SS Protein (U) [Mass/Vol] 1+ *ABN* (01/25/24 2:05 PM) Invalid Interpretation Code Negative [facility] UA Auto SS Specific gravity (U) [Rel density] <=1.005 *NA* (01/25/24 2:05 PM) Invalid Interpretation Code 1.005 - 1.030 [facility] UA Auto SS UA Spec Desc Clean Catch (01/25/24 2:05 PM) Normal [facility] UA Auto SS Urobilinogen Qn (U) 0.9564608 {Kishan'U}/dL Normal 0.0 - 1.0 EU/dL [facility] UA Auto SS WBC Auto Ql (U) 3+ *ABN* (01/25/24 2:05 PM) Invalid Interpretation Code Negative [facility] UA Auto SS WBC LM.HPF (Urine sed) [#/Area] /[HPF] Invalid Interpretation Code 0-5/HPF [facility] UA Auto SS XR Chest Single Viewon 01-24 XR Chest Single View Exam Date/Time: 01/25/2024 14:59 EST Reason for Exam: Shortness of breath (SOB) Report [facility] [phone] IMPRESSION: There are no acute cardiopulmonary changes. CLINICAL HISTORY: Shortness of breath (SOB) EXAMINATION: XR Chest Single View COMPARISON: Chest x-ray from 01/04/2024 FINDINGS: The cardiomediastinal silhouette is unremarkable. The lungs are free of infiltrates effusions or consolidations. There are no acute osseous changes. Ordering Provider: Daniel Espnioza FINAL REPORT Dictated: 01/25/2024 3:31 pm Sukhjinder Lindsay MD, V. Signed (Electronic Signature): 01/25/2024 3:31 pm Signed by: Sukhjinder Lindsay MD, V. Transcribed by: JASON Technologist: KHOI Technical Comments Radiation Dose: Ka,r in mGy = 0 DAP = 0 Normal [facility] eGFRon 01-25-2024 eGFR 100 mL/min/1.73 m2 Normal >=59 [facility] Comment on above: Order Comment: Order added by Discern Expert. Performed By: #### 1 9725588, 6354452, 4929401, 69475207, 05439027, 6532662, 9149503, 8811829 #### [facility] [address] [place] [address] Patient Educationon 01-18-20 24 Patient Education Infectious [...] these instructions at home: Medicines ? Take xpzh-bjo-lttmsrc and prescription medicines only as told by [...] Where to find more information ? National [place] of Diabetes and Digestive and Kidney Diseases: (more content not included)... Normal [facility] Urology Office/Clinic Noteon 01-18-2024 Urology Office/Clinic Note Chief Complaint S/P TRUS/Bx HPI Staff F/u to review path report from TRUS/bx 01/01/24. Previous dx: BPH with obstruction, elevated PSA. Patient presented to [facility] ER on 01/04/24 due to prostatitis, sepsis [...] patient could understand. Pt presented to [facility] ER on 01/04/24 due to prostatitis, sepsis [...] Information RICKY LEVIN, Nadir Mercado, [address] [place] [address]- Additional Instructions: 6 months Patient Education Prostatitis [...] knee (06 (more content not included)... Normal [facility] Comment on above: Result Comment: Elec tronically [...] and Complexity of Problems Differential Diagnosis: [] [facility] Data External documents reviewed: [] My EKG [...] acetaminophen 325 mg Tab, 650 mg, Oral [id number] [F] 500 mg + Sodium Chloride 0.9% IV Kena 50 mL Minibag Plus [F] 50 mL, IV Piggyback NS 1000 ml Bolus, 1000 mL, IV Disposition Plan Patient Discharge Condition Stable Discharge Disposition To be admitted Discharge Prescription List Prescriptions No active prescription medications Follow-up No qualifying data available Attestation Patient seen and evaluated by the physician commercial real estate assistant. Attending physician was present in the emergency department and (more content not included)... Normal [facility] Comment on above: Result Comment: Elec tronically Signed By: Daniel Espinoza PA-C\.br\Date and Time Signed: 01/04/24 20:59 EST\.br\Electronically Co-Signed By: Sara Patel M.D.\.br\Date and Time Co-Signed: 01/12/24 07:20 EST Coding Queryon 01-10-2024 Coding Query - From: Teresa Rodriguez RN To: Christie LEVIN, [facility]; Sent: 01/10/2024 15:10:07 EST ! Subject: Coding Query Due Date/Time: 01/11/2024 15:09:00 EST Caller Name: STEVE WILLIAMSON; Caller Number: H , B [phone] Documentation in the medical record indicates this [...] STEVE WILLIAMSON; Caller Number: H , B [phone] Infection related to the procedure Normal [facility] Consent for Treatmenton 12-21 Consent for Treatment [id number] 0TIFF Normal [facility] Discharge Instructionson Discharge Instructions [id number] 0TIFF Normal [facility] ED Clinical Summaryon 2023 ED Clinical Summary [place] [id number] ED Clinical Summary Person Information Name: STEVE WILLIAMSON Shayna/[facility] Age: 58 Years : 1965 Sex: Male Language: Stateless PCP: DELPHINE BERRY NP Marital Status: Visit [...] 11:26:43 01/10/2024 11:26:43 01/10/2024 11:26:43 ADDRESS: [address] [place] [id number] PHYS DOC NOTES: MEDICAL INFORMATION: Prescriptions Given: New Medications [facility], [address], [place] [id number], [phone] cephalexin (Keflex 500 mg Cap) 1 Capsules [...] or worsening symptoms. DIAGNOSIS: Superficial thrombophlebitis Normal [facility] ED Note-Physicianon 01-10-20 ED Note-Physician Basic Information [...] extremity: Radial pulses intact. Sensation is intact. Audiology Director strength, finger abduction and adduction are intact. [...] day(s), # 28 cap(s), Refills(s) 0, Pharmacy: [facility], 178, cm, 01/10/24 10:05:00 EST, Height/Length [...] History Hyperlipi (more content not included)... Normal [facility] Comment on above: Result Comment: Elec tronically [...] these instructions at home: Medicines ? Take sopf-orx-izmvxeu and prescription medicines only as told by [...] cigarettes, chew (more content not included)... Normal [facility] ED Patient Summaryon 024 ED Patient Summary [address] [address] Patient Discharge Instructions Person Information Name: STEVE WILLIAMSON Age: 58 Years Arrival Date: 01/10/2024 09:54:14 Discharge Diagnosis: Superficial thrombophlebitis Primary Care Physician: DELPHINE BERRY NP Provider Information Primary Provider: Amauri Tran DO [employer] Operator:None The exam and treatment you received in the Emergency Department were for an urgent problem and are not intended as complete care. It is important that you follow up with a doctor, nurse practitioner, or physician?s commercial real estate assistant for ongoing care. If your symptoms [...] opioids can be used to help relieve ntqaxzqp-dp-xmbjoj pain and are often prescribed following a [...] ? Saf (more content not included)... Normal [facility] C Urineon 01-08-2024 Bacteria identified Cx Nom [...] Locations R1: This test was performed at: [facility], [address] [place] [address], [address]- , , [facility] Comment on above: Performed By: #### 1 1078122, 8283113, 6205981, 01749833, 88330393, 2243397, 0279477, 1046790 #### [facility] [address] [place] [place] [address] Discharge Instructionson Discharge Instructions [id number] [facility]on 01-08-2024 Insurance Correspondence Office [id number]#1. 00TIFF [facility] BMPon 01-07-2024 Anion gap [Moles/Vol] 11 mmol/L Normal 6-16 [facility] Comment on above: Performed By: #### 1 3878004, 6643273, 6624421, 18346522, 72593237, 4892531, 2258397, 6812999 #### [facility] [address] [place] [address] BUN/Creat Ratio 13 No Units Normal 10-20 [facility] Comment on above: Performed By: #### 1 2896279, 3087019, 1343729, 99604034, 49110974, 6022245, 5071146, 4832629 #### [facility] [address] [place] [place] [address] Calcium [Mass/Vol] 9.0 mg/dL Normal 8.9-11.1 [facility] Comment on above: Performed By: #### 1 8097190, 7951376, 9004080, 38553921, 16893176, 9773863, 7687766, 3856890 #### [facility] [address] [place] [address] Chloride [Moles/Vol] 106 mmol/L Normal 101-111 [facility] Comment on above: Performed By: #### 1 3292657, 5722424, 7829690, 45400401, 34392763, 5863142, 7736849, 2093142 #### [facility] [address] [place] [address] CO2 [Moles/Vol] 28 mmol/L Normal 21-31 [facility] Comment on above: Performed By: #### 1 4536809, 3697726, 6572017, 12398033, 15347638, 0587439, 3336064, 5671129 #### [facility] [address] [place] [address] Creatinine [Mass/Vol] 0.9 mg/dL Normal 0.5-1.3 [facility] Comment on above: Performed By: #### 1 3409203, 3454769, 1537074, 25366143, 53345170, 3433067, 6622708, 3000314 #### [facility] [address] [place] [address] Glucose [Mass/Vol] 103 mg/dL Normal 55-199 [facility] Comment on above: Performed By: #### 1 1599712, 2192631, 6886036, 65413219, 09840941, 2121832, 9686308, 2992803 #### [facility] [address] [place] [address] Potassium [Moles/Vol] 3.6 mmol/L Normal 3.5-5.3 [facility] Comment on above: Performed By: #### 1 9339779, 5180218, 8495322, 32809584, 44104681, 3341079, 3763489, 1541292 #### [facility] [address] [place] [address] Sodium [Moles/Vol] 141 mmol/L Normal 135-145 [facility] Comment on above: Performed By: #### 1 1561353, 2490404, 6624732, 18104271, 94852889, 3454959, 1240783, 1908632 #### [facility] [address] [place] [address] Urea nitrogen [Mass/Vol] 12 mg/dL Normal 5-21 [facility] Comment on above: Performed By: #### 1 4235640, 7741050, 3439588, 00150019, 86360281, 0979765, 1539804, 1709278 #### [facility] [address] [place] [address] CBC w/ Auto Diffon 4 Basophil Absolute 0.0 E9/L Normal 0.0-0.2 [facility] Comment on above: Performed By: #### 1 5528513, 7401388, 4730872, 30406099, 97554964, 5942129, 3914813, 5734644 #### [facility] [address] [place] [address] Basophils/100 WBC (Bld) 0.5 % Normal 0.0-2.0 [facility] Comment on above: Performed By: #### 1 0365818, 0143117, 3374461, 55787828, 25084014, 1620086, 0763476, 7976781 #### [facility] [address] [place] [address] Eos Absolute 0.2 E9/L Normal 0.0-0.5 [facility] Comment on above: Performed By: #### 1 9134254, 5001242, 5104905, 46569695, 74964464, 5834713, 6531486, 5190518 #### [facility] [address] [place] [address] Eosinophils/100 WBC (Bld) 2.5 % Normal 0.0-8.0 [facility] Comment on above: Performed By: #### 1 7021059, 2635756, 6112672, 72537179, 04459668, 0808955, 6325631, 7217814 #### [facility] [address] [place] [address] Erythrocyte distribution width (RBC) [Ratio] 12.9 % Normal 10.9-14.2 [facility] Comment on above: Performed By: #### 1 3077328, 2707544, 4850829, 08025593, 80975625, 0113890, 8846213, 1299423 #### [facility] [address] [place] [address] Hematocrit (Bld) [Volume fraction] 40.0 % Normal 37.7-49.0 [facility] Comment on above: Performed By: #### 1 9971431, 1576405, 5207525, 94731308, 75737926, 6031078, 5842082, 4386107 #### [facility] [address] [place] [address] Hemoglobin (Bld) [Mass/Vol] 14.1 g/dL Normal 13.5-17.5 [facility] Comment on above: Performed By: #### 1 7369557, 0332896, 7143791, 38423448, 90139004, 4277253, 3516041, 6981798 #### [facility] [address] [place] [address] Lymph Absolute 1.2 E9/L Normal 1.0-4.0 [facility] Comment on above: Performed By: #### 1 8852752, 4666430, 3284015, 21679326, 77941423, 5761298, 6835816, 6552266 #### [facility] [address] [place] [address] Lymphocytes/100 WBC (Bld) 18.4 % Normal 14.0-50.0 [facility] Comment on above: Performed By: #### 1 6829269, 2830434, 8675476, 95041812, 85213402, 8811796, 9933904, 4372304 #### [facility] [address] [place] [address] MCH (RBC) [Entitic mass] 32.5 pg Normal 27.0-34.0 [facility] Comment on above: Performed By: #### 1 5157026, 0120007, 9105608, 43048947, 07597373, 4794800, 1747154, 2200625 #### [facility] [address] [place] [address] MCHC (RBC) [Mass/Vol] 35.2 g/dL Normal 31.4-36.0 [facility] Comment on above: Performed By: #### 1 2974370, 8452566, 3230899, 94700667, 90654928, 9385793, 3218498, 5602779 #### [facility] [address] [place], [place] [address] MCV (RBC) [Entitic vol] 92.4 fL Normal 80.0-100.0 [facility] Comment on above: Performed By: #### 1 7471056, 9228598, 7688605, 96102392, 33795173, 0163005, 8715210, 4686312 #### [facility] [address] [place] [address] [place] Absolute 0.7 E9/L Normal 0.2-1.0 [facility] Comment on above: Performed By: #### 1 4162010, 2281866, 3716960, 50534731, 88439157, 1082671, 1040115, 1805576 #### [facility] [address] [place], [place] [address] Monocytes/100 WBC (Bld) 10.9 % Normal 4.0-14.0 [facility] Comment on above: Performed By: #### 1 8303591, 8864872, 2495916, 41854309, 96641107, 5503335, 1311502, 8829574 #### [facility] [address] [place] [address] Neutro Absolute 4.6 E9/L Normal 2.0-7.5 [facility] Comment on above: Performed By: #### 1 7268597, 2225494, 0242072, 52621406, 96444398, 3896267, 7991744, 3278915 #### [facility] [address] [place] [address] Neutro Auto 67.7 % Normal 36.0-75.0 [facility] Comment on above: Performed By: #### 1 0281575, 8127296, 6274102, 54725440, 11907137, 8790798, 6233780, 2160179 #### [facility] [address] [place] [address] Platelet 143.0 E9/L Low 150.0-500.0 [facility] Comment on above: Performed By: #### 1 4907489, 8308565, 3797466, 83729166, 17706443, 6002251, 6583219, 2655711 #### [facility] [address] [place] [address] Platelet mean volume (Bld) [Entitic vol] 8.1 fL Normal 6.4-10.8 [facility] Comment on above: Performed By: #### 1 8705904, 0585861, 1293771, 64830569, 01696635, 3174411, 7762050, 4549960 #### [facility] [address] [place] [address] RBC 4.3 E12/L Normal 4.3-5.9 [facility] Comment on above: Performed By: #### 1 4071281, 7141199, 2303597, 66573912, 04348646, 7943550, 1985014, 2884256 #### [facility] [address] [place] [address] WBC 6.7 E9/L Normal 4.0-11.0 [facility] Comment on above: Performed By: #### 1 3979337, 4275666, 8198528, 76894022, 97511431, 0991124, 3238965, 2949373 #### [facility] [address] [place] [address] CHEMISTRYOrdered By: SYSTEM SYSTEM on 01-07-2024 Anion [...] LEVIN, Nadir Mercado Where: [facility] HEMATOLOGYOrdered By: SYSTEM SYSTEM on 01-07-2024 Basophil [...] Normal 80.0 - 100.0 fL Remisol Heme [place] Absolute 0.7 E9/L Normal 0.2 - 1.0 [...] Inpatient Clinical Summaryon 01-07-2024 Inpatient Clinical Summary [place] [address] Clinical Summary Person Information: Name: STEVE WILLIAMSON Age: 58 Years : 1965 Sex: Male PCP: DELPHINE BERRY NP Marital Status: Race: White Ethnicity: Non- or Language: Stateless Visit Id: Visit Reason: Post surgical problem; Fever; Hematuria; DIFFICULTY URINATING / LOW GRADE FEVER / SENT FROM [facility] Speciality: Acuity: Enc Type: Inpatient Med Service: Medical Arrival: 01/04/2024 15:24:45 Discharge: Dispo Type: Admitted as IP to this Hosp Address: [address] [place] [id number] Provider Notes: Diagnosis: 1:Sepsis; 2:Prostatitis; 3:BPH with [...] Rod Brown DO Consulting Physician: Amanda LEVIN, Marvle Morton Referring Physician: Follow up: With: Address: When: Nadir GARCÍA [facility], [address], [place] [address] [facility] (1) Comments: Call for followup appointment With: Address: When: DELPHINE BERRY Comments: Call for followup appointment Type Location Start [facility] URO Office Visit [facility] NOAH Kaufman 01/18/2024 11:00 AM 01/18/2024 11:15 AM Confirmed Patient Education Information: Normal [facility] Inpatient Patient Summaryon 01-07-2024 Inpatient Patient Summary [address] [address] Patient Discharge Instructions PERSON INFORMATION [...] Follow up: With: Address: When: Nadir GARCÍA [facility], [address], [place] [address] Business (1) Comments: Call for followup appointment With: Address: When: DELPHINE BERRY Comments: Call for followup appointment In the event that this physician does not participate in your insurance network, please consult with your insurance company to find a nearby participating provider. Type Location Start Finish [facility] URO Office Visit [facility] NOAH Kaufman 01/18/2024 11:00 AM 01/18/2024 11:15 AM Confirmed Comment: DORA Garcia GREGORY A, have received the attached patient education materials/instructions and have verbalized understanding: Patient Signature Date Clinican/Nurse Signature ___ Date HERE ARE THE MEDICATION CHANGES THAT OCCURRED DURING YOUR HOSPITAL STAY New Medications [id number], [address], [place] [id number], [phone] levofloxacin (Levaquin 750 mg Tab) 1 Tablets [...] to serve you. Thank you for choosing [facility] Normal [facility] Insurance Correspondence Off iceon 01-07-2024 Insurance Correspondence Office [id number]#1.0 0TIFF Normal [facility] Interdisciplinary Note - Merrill e Manageron 01-07-2024 Interdisciplinary Note - Computer Video Game Designer Pt will dc today on PO atx. pt's will transport. Return to work letter will be prepared by bedside nurse. Ant dc today. Normal [facility] Comment on above: Result Comment: Elec tronically Signed By: Licha Ley.br\Date and Time Signed: 01/07/24 13:38 EST Interdisciplinary Note - Soc ial Workeron 01-07-2024 Interdisciplinary Note - Supervisor Electrolytic Tinning Consult for positive SDOH received for possible issues with transportation to appointments. SW attempted to meet with patient, however he had already been discharged when SW arrived to the floor. SW will remain available. Normal [facility] Monitor Recordon 01-07-2024 Monitor Record [id number]#1. 00TIFF Normal [facility] Monitor Record [id number] 20 [id number]#1. 00TIFF Normal [facility] Prostate Histology ([facility]) on 01-07-2024 Prostate Histology Diagnosis Info Invalid Interpretation Code [facility] Comment on above: Result Comment: A:Pr ostate,Left Lateral Base:Needle Biopsy Interpretation - - Benign prostatic tissue with patchy inflammation. MicroScopic Description - B:Prostate,Left Lateral Mid:Needle Biopsy Interpretation - - Benign prostatic tissue. MicroScopic Description - C:Prostate,Left Lateral [place]:Needle Biopsy Interpretation - - Benign prostatic tissue. MicroScopic Description - D:Prostate,Left Base:Needle Biopsy Interpretation - - Benign prostatic tissue. MicroScopic Description - E:Prostate,Left Mid:Needle Biopsy Interpretation - - High-grade prostatic intraepithelial neoplasia (HGPIN). MicroScopic Description - F:Prostate,Left [place]:Needle Biopsy Interpretation - - Benign prostatic tissue. MicroScopic Description - G:Prostate,Right Base:Needle Biopsy Interpretation - - Benign prostatic tissue. MicroScopic Description - H:Prostate,Right Mid:Needle Biopsy Interpretation - - Benign prostatic tissue. MicroScopic Description - I:Prostate,Right [place]:Needle Biopsy Interpretation - - Benign prostatic tissue with patchy chronic inflammation. MicroScopic Description - J:Prostate,Right Lateral Base:Needle Biopsy Interpretation - - Benign prostatic tissue. MicroScopic Description - K:Prostate,Right Lateral Mid:Needle Biopsy Interpretation - - Benign prostatic tissue. MicroScopic Description - L:Prostate,Right Lateral [place]:Needle Biopsy Interpretation - - Benign prostatic tissue. MicroScopic Description - Gross Description Site ID:A color mcacin-white fixative Formalin cores 1 units cm Site [...] Formalin cores 1 units cm CPT code: 01932 x 12 Electronically signed by : on: 01/07/2024 10:12:58 Performed By: #### 1 [id number] ####[facility] [address] [place] [address] eGFRon 01-07-2024 eGFR 100 mL/min/1.73 m2 Normal >=59 [facility] Comment on above: Order Comment: Order added by Discern Expert. Performed By: #### 1 3177257, 7369226, 0568018, 65770034, 35012103, 1398125, 1223445, 5075505 #### [facility] [address] [place] [address] BMPon 01-06-2024 Anion gap [Moles/Vol] 7 mmol/L Normal 6-16 [facility] Comment on above: Performed By: #### 1 6017352, 3419906, 4984769, 41879964, 88802719, 1635359, 1346630, 1399317 #### [facility] [address] [place] [address] BUN/Creat Ratio 18 No Units Normal 10-20 [facility] Comment on above: Performed By: #### 1 2345651, 7011999, 2426979, 23359461, 45239437, 9967545, 5695463, 2461715 #### [facility] [address] [place] [address] Calcium [Mass/Vol] 8.5 mg/dL Low 8.9-11.1 [facility] Comment on above: Performed By: #### 1 3827571, 3128535, 6739477, 01432244, 23204491, 6072555, 9851682, 3828426 #### [facility] [address] [place] [address] Chloride [Moles/Vol] 108 mmol/L Normal 101-111 [facility] Comment on above: Performed By: #### 1 0237931, 3319572, 3469679, 88863565, 81536725, 1867148, 3906327, 4472463 #### [facility] [address] [place] [address] CO2 [Moles/Vol] 27 mmol/L Normal 21-31 [facility] Comment on above: Performed By: #### 1 9683801, 6802545, 7131531, 69526155, 10630563, 1807900, 9553189, 2931535 #### [facility] [address] [place] [address] Creatinine [Mass/Vol] 1.0 mg/dL Normal 0.5-1.3 [facility] Comment on above: Performed By: #### 1 4592688, 9803267, 8900128, 23747952, 17887066, 8007053, 1941152, 3855337 #### [facility] [address] [place] [address] Glucose [Mass/Vol] 119 mg/dL Normal 55-199 [facility] Comment on above: Performed By: #### 1 1281206, 4958674, 0722493, 30211437, 94170439, 3273869, 2950041, 9193133 #### [facility] [address] [place] [address] Potassium [Moles/Vol] 4.2 mmol/L Normal 3.5-5.3 [facility] Comment on above: Performed By: #### 1 2522845, 9093297, 4760741, 72767278, 41191990, 2822619, 4807643, 0588276 #### [facility] [address] [place] [address] Sodium [Moles/Vol] 138 mmol/L Normal 135-145 [facility] Comment on above: Performed By: #### 1 2185214, 8117963, 5080993, 16083407, 16667823, 2773125, 5836576, 8642774 #### [facility] [address] [place] [address] Urea nitrogen [Mass/Vol] 18 mg/dL Normal 5-21 [facility] Comment on above: Performed By: #### 1 4259929, 6103171, 5462940, 80668119, 47991514, 1906420, 5794610, 1589780 #### [facility] [address] [place] [address] CBC w/ Auto Diffon 4 Basophil Absolute 0.0 E9/L Normal 0.0-0.2 [facility] Comment on above: Performed By: #### 1 9859526, 9445597, 1177676, 63738121, 11747775, 5237751, 6448121, 8518659 #### [facility] [address] [place] [address] Basophils/100 WBC (Bld) 0.3 % Normal 0.0-2.0 [facility] Comment on above: Performed By: #### 1 3504640, 2349200, 8920797, 52145648, 11895978, 3157331, 8873969, 8751588 #### [facility] [address] [place] [address] Eos Absolute 0.1 E9/L Normal 0.0-0.5 [facility] Comment on above: Performed By: #### 1 4067575, 1669395, 4891916, 86008606, 08802951, 6014146, 1691235, 0003666 #### [facility] [address] [place], [place] [address] Eosinophils/100 WBC (Bld) 2.1 % Normal 0.0-8.0 [facility] Comment on above: Performed By: #### 1 9774472, 1395193, 7416006, 13274280, 73078100, 7693863, 0610677, 7786716 #### [facility] [address] [place], [place] [address] Erythrocyte distribution width (RBC) [Ratio] 12.4 % Normal 10.9-14.2 [facility] Comment on above: Performed By: #### 1 3868563, 4299554, 1827727, 57790238, 37926356, 7120598, 0472634, 2383178 #### [facility] [address] [place], [place] [address] Hematocrit (Bld) [Volume fraction] 38.0 % Normal 37.7-49.0 [facility] Comment on above: Performed By: #### 1 6442752, 2263891, 0999209, 25612040, 24596237, 8223362, 1795537, 7990009 #### [facility] [address] [place], [place] [address] Hemoglobin (Bld) [Mass/Vol] 13.5 g/dL Normal 13.5-17.5 [facility] Comment on above: Performed By: #### 1 0829578, 7234678, 1444341, 53057280, 41799945, 2915880, 2256484, 8069215 #### [facility] [address] [place] [address] Lymph Absolute 0.9 E9/L Low 1.0-4.0 [facility] Comment on above: Performed By: #### 1 3275240, 9200249, 1325136, 67514896, 08344233, 5177791, 4265833, 0197194 #### [facility] [address] [place] [address] Lymphocytes/100 WBC (Bld) 13.8 % Low 14.0-50.0 [facility] Comment on above: Performed By: #### 1 8446937, 0577732, 1646967, 54911477, 81468648, 0570037, 4112206, 5795265 #### [facility] [address] [place] [address] MCH (RBC) [Entitic mass] 32.5 pg Normal 27.0-34.0 [facility] Comment on above: Performed By: #### 1 2055042, 0295770, 2934832, 35472520, 70110009, 4471013, 6068038, 9705930 #### [facility] [address] [place] [address] MCHC (RBC) [Mass/Vol] 35.1 g/dL Normal 31.4-36.0 [facility] Comment on above: Performed By: #### 1 0022663, 1362186, 5353074, 95352982, 00177978, 8147182, 1764715, 6976698 #### [facility] [address] [place] [address] MCV (RBC) [Entitic vol] 92.6 fL Normal 80.0-100.0 [facility] Comment on above: Performed By: #### 1 7812970, 1058568, 9604501, 00428379, 08195671, 1702113, 6139024, 8969638 #### [facility] [address] [place] [address] [place] Absolute 0.9 E9/L Normal 0.2-1.0 [facility] Comment on above: Performed By: #### 1 8230684, 1037615, 6644896, 18853849, 32268059, 7924366, 4790592, 1152178 #### [facility] [address] [place] [address] Monocytes/100 WBC (Bld) 12.8 % Normal 4.0-14.0 [facility] Comment on above: Performed By: #### 1 3162217, 9524140, 7653845, 78300738, 67613834, 9059892, 6532872, 2441412 #### [facility] [address] [place] [address] Neutro Absolute 4.8 E9/L Normal 2.0-7.5 [facility] Comment on above: Performed By: #### 1 7258268, 0306001, 3547830, 00426371, 18782401, 8976669, 6913055, 0139239 #### [facility] [address] [place] [address] Neutro Auto 71.0 % Normal 36.0-75.0 [facility] Comment on above: Performed By: #### 1 6885669, 7271776, 4913551, 55870472, 32979284, 9043644, 5488548, 4006458 #### [facility] [address] [place] [address] Platelet 115.0 E9/L Low 150.0-500.0 [facility] Comment on above: Performed By: #### 1 1404062, 5627348, 5086452, 91387572, 33476863, 6569276, 1796094, 6478537 #### [facility] [address] [place] [address] Platelet mean volume (Bld) [Entitic vol] 7.9 fL Normal 6.4-10.8 [facility] Comment on above: Performed By: #### 1 3497170, 9497613, 1564554, 86845628, 42713609, 7635217, 2908312, 0131979 #### [facility] [address] [place] [address] RBC 4.2 E12/L Low 4.3-5.9 [facility] Comment on above: Performed By: #### 1 8122264, 4036864, 4212503, 56915102, 22770471, 0010768, 7180919, 5997159 #### [facility] [address] [place] [address] WBC 6.8 E9/L Normal 4.0-11.0 [facility] Comment on above: Performed By: #### 1 2274047, 2127402, 7023667, 03461073, 16803429, 9563956, 6844564, 4479788 #### [facility] [address] [place] [address] CHEMISTRYOrdered By: [employer] on 01-06-2024 Anion gap [Moles/Vol] 7 mmol/L [...] Normal 80.0 - 100.0 fL Remisol Heme [place] Absolute 0.9 E9/L Normal 0.2 - 1.0 [...] Merrill e Manageron 01-06-2024 Interdisciplinary Note - Computer Video Game Designer CRM spoke with patient. Patient was previous rounded on by Dr Brown today. Waiting urine cx results, possible dc tomorrow. Pending cx results may need IV ATB at dc. No family in room. Patient is alert and oriented. Whiteboard updated and CRM contact # provided. Patient denies any questions or needs at dc. [facility] Comment on above: Result Comment: Elec tronically Signed By: John TEE, Nancy\.br\Date and Time Signed: 01/06/24 10:57 EST Monitor Recordon 01-06-2024 Monitor Record [id number] 20 [id number]. 00TIFF [facility] Monitor Record [id number] 20 [id number]. 00TIFF [facility] Monitor Record [id number] 20 [id number]#1. 00TIFF [facility] Monitor Record [id number] 20 [id number]. 00TIFF [facility] Monitor Record [id number] 20 [id number]. 00TIFF [facility] Monitor Record [id number] 20 [id number]. 00TIFF [facility] Monitor Record [id number] 20 [id number]#1. 00TIFF [facility] Progress Note-Physicianon Progress Note-Physician Assessment/Plan 1. Sepsis [...] Lymph Auto: 13.8 % Low (01/06/24 05:51:00) [place] Auto: 12.8 % (01/06/24 05:51:00) Eos Auto: 2.1 % (01/06/24 05:51:00) Basophil Auto: 0.3 % (01/06/24 05:51:00) Neutro Absolute: 4.8 E9/L (01/06/24 05:51:00) Lymph Absolute: 0.9 E9/L Low (01/06/24 05:51:00) [place] Absolute: 0.9 E9/L (01/06/24 05:51:00) Eos Absolute: [...] mg= 1 (more content not included)... Normal [facility] Comment on above: Result Comment: Elec tronically [...] procedure., # 1 tab(s), Refills(s) 0, Pharmacy: [facility], 178, cm, 12/10/23 11:59:00 EST, Height/Length Dosing, 82, kg, 12/10/23 11:59:00 EST, Weight Dosing... alfuzosin 10 mg ER Tab: 10 mg = 1 tab(s), Oral, Daily, # 30 tab(s), Refills(s) 11, Pharmacy: [facility], 178, cm, 12/10/23 11:59:00 EST, Height/Length Dosing, 82, kg, 12/10/23 11:59:00 EST, Weight Dosing Documented Medications Documented latanoprost Opth 0.005% Kena: 1 drop(s), OPTH, Once a day (at bedtime), Other (see comment) rosuvastatin 20 mg Tab: 20 mg = 1 tab(s), Oral, Daily, High cholesterol Problem list: All Problems At risk for falls / SNOMED CT 186056229 / Possible Problem added when Risk for Falls Careplan was initiated. 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 Acute glaucoma / SNOMED CT 37795711 / Confirmed Glaucoma / SNOMED CT 15543924 / Confirmed Heart murmur / SNOMED CT 798613970 / Confirmed High cholesterol / SNOMED CT 09158579 / Confirmed High cholesterol / SNOMED CT 95884803 / Confirmed Hyperlipemia / SNOMED CT 92859038 / Confirmed Knee pain, left / SNOMED CT 39374344 / Confirmed Screen for colon cancer / SNOMED CT 365291965 / Confirmed Elevated PSA / SNOMED CT 0956521168 / Confirmed Transportation insecurity / SNOMED CT 9624986272759179 / Possible Problem added automatically by Discern Expert based on clinical documentation, Active Problems (12) Acute glaucoma At risk for falls BPH with urinary obstruction Elevated PSA Glaucoma Heart murmur High cholesterol High cholesterol Hyperlipemia Knee pain, left Screen for colon cancer Transportation insecurity Histories Past Medical History: Resolved Plantar fasciitis ([id number]): Resolved. Comments: 03/07/2013 EDT 12:51 EDT Kerry Ha RN, Lyubov RIGHT FOOT Family History: Hyperlipidemia Father Mother Procedure history: Colonoscopy ([id number]) on 10/26/2023 at 58 Years. Arthroscopy of knee ([id number]) on 05/07/2019 at 54 Years. Comments: 05/07/2019 [...] Return Yes (more content not included)... Normal [facility] Comment on above: Result Comment: Elec tronically Signed By: Amanda LEVIN, Marvel Solis\Date and Time Signed: 01/06/24 09:09 EST eGFRon 01-06-2024 eGFR 88 mL/min/1.73 m2 Normal >=59 [facility] Comment on above: Order Comment: Order added by Discern Expert. Performed By: #### 1 3758467, 0328622, 9767870, 55673166, 21270974, 1613320, 8459488, 1963451 #### [facility] [address] [place] [address] BMPon 01-05-2024 Anion gap [Moles/Vol] 12 mmol/L Normal 6-16 [facility] Comment on above: Performed By: #### 1 1863610, 7420717, 6670657, 67163325, 26916010, 5254135, 8704193, 1922456 #### [facility] [address] [place] [address] BUN/Creat Ratio 17 No Units Normal 10-20 [facility] Comment on above: Performed By: #### 1 6287312, 3811403, 8718521, 56115173, 23579999, 1181845, 0286537, 2331414 #### [facility] [address] [place] [address] Calcium [Mass/Vol] 8.4 mg/dL Low 8.9-11.1 [facility] Comment on above: Performed By: #### 1 9934538, 7451519, 1293787, 31446081, 94445618, 8410704, 6294853, 4197906 #### [facility] [address] [place] [address] Chloride [Moles/Vol] 105 mmol/L Normal 101-111 [facility] Comment on above: Performed By: #### 1 0921697, 5741482, 8819541, 68656176, 52736182, 0572473, 1129357, 8604762 #### [facility] [address] [place] [address] CO2 [Moles/Vol] 22 mmol/L Normal 21-31 [facility] Comment on above: Performed By: #### 1 9628174, 9000023, 9285885, 06587623, 68167266, 2092596, 2330820, 1252415 #### [facility] [address] [place] [address] Creatinine [Mass/Vol] 0.9 mg/dL Normal 0.5-1.3 [facility] Comment on above: Performed By: #### 1 3112580, 0920147, 5004721, 21913836, 49279814, 9180208, 2345532, 3917006 #### [facility] [address] [place] [address] Glucose [Mass/Vol] 106 mg/dL Normal 55-199 [facility] Comment on above: Performed By: #### 1 5685830, 5604980, 5848547, 07055492, 62357397, 0592596, 2529682, 5635381 #### [facility] [address] [place] [address] Potassium [Moles/Vol] 3.8 mmol/L Normal 3.5-5.3 [facility] Comment on above: Performed By: #### 1 8386350, 0848146, 7027139, 40147879, 83287346, 7439431, 4448960, 2085151 #### [facility] [address] [place] [address] Sodium [Moles/Vol] 135 mmol/L Normal 135-145 [facility] Comment on above: Performed By: #### 1 9707939, 2453081, 8203229, 87356031, 07791915, 7056786, 7396301, 3295904 #### [facility] [address] [place] [address] Urea nitrogen [Mass/Vol] 15 mg/dL Normal 5-21 [facility] Comment on above: Performed By: #### 1 6194101, 8464003, 9290487, 99343595, 71380041, 1524606, 5746643, 9743748 #### [facility] [address] [place] [address] CBC w/ Auto Diffon 4 Basophil Absolute 0.0 E9/L Normal 0.0-0.2 [facility] Comment on above: Performed By: #### 1 6966190, 2485745, 6820907, 55518090, 54401795, 6205720, 0949889, 3756617 #### [facility] [address] [place] [address] Basophils/100 WBC (Bld) 0.3 % Normal 0.0-2.0 [facility] Comment on above: Performed By: #### 1 8890939, 1998898, 4576397, 80150742, 15744855, 0662831, 4047016, 2917116 #### [facility] [address] [place] [address] Eos Absolute 0.0 E9/L Normal 0.0-0.5 [facility] Comment on above: Performed By: #### 1 4858536, 3172802, 8250654, 82932206, 98410260, 0704518, 1344221, 8201248 #### [facility] [address] [place] [address] Eosinophils/100 WBC (Bld) 0.3 % Normal 0.0-8.0 [facility] Comment on above: Performed By: #### 1 0905073, 1462449, 2742143, 51181505, 33692486, 7018641, 7065643, 8712370 #### [facility] [address] [place] [address] Erythrocyte distribution width (RBC) [Ratio] 12.5 % Normal 10.9-14.2 [facility] Comment on above: Performed By: #### 1 3321117, 9107617, 3484385, 67307512, 82381751, 5669175, 0917635, 2015785 #### [facility] [address] [place] [address] Hematocrit (Bld) [Volume fraction] 41.0 % Normal 37.7-49.0 [facility] Comment on above: Performed By: #### 1 5223925, 2093595, 6468869, 55924113, 82806412, 6753426, 6572162, 8931548 #### [facility] [address] [place] [address] Hemoglobin (Bld) [Mass/Vol] 14.1 g/dL Normal 13.5-17.5 [facility] Comment on above: Performed By: #### 1 7367504, 4632514, 1357124, 21409860, 99258671, 1566375, 3960113, 9695031 #### [facility] [address] [place] [address] Lymph Absolute 1.7 E9/L Normal 1.0-4.0 [facility] Comment on above: Performed By: #### 1 9644354, 2148685, 3094724, 42359145, 03466504, 7590287, 4002472, 2296306 #### [facility] [address] [place] [address] Lymphocytes/100 WBC (Bld) 14.8 % Normal 14.0-50.0 [facility] Comment on above: Performed By: #### 1 7740232, 2258867, 6387413, 45523943, 44435944, 2743857, 1807770, 8188356 #### [facility] [address] [place] [address] MCH (RBC) [Entitic mass] 31.7 pg Normal 27.0-34.0 [facility] Comment on above: Performed By: #### 1 6731758, 6947103, 5495008, 36551825, 54410463, 0908845, 2500371, 7399783 #### [facility] [address] [place] [address] MCHC (RBC) [Mass/Vol] 34.3 g/dL Normal 31.4-36.0 [facility] Comment on above: Performed By: #### 1 0362079, 8431842, 0420474, 15161858, 85162665, 4225121, 6000618, 5331465 #### [facility] [address] [place] [address] MCV (RBC) [Entitic vol] 92.2 fL Normal 80.0-100.0 [facility] Comment on above: Performed By: #### 1 2528621, 9506221, 1993485, 02412938, 44742020, 1101497, 4455639, 2600503 #### [facility] [address] [place] [address] [place] Absolute 1.1 E9/L High 0.2-1.0 [facility] Comment on above: Performed By: #### 1 6675157, 3171984, 0658299, 73615892, 13235826, 2781446, 5036831, 1521467 #### [facility] [address] [place] [address] Monocytes/100 WBC (Bld) 10.2 % Normal 4.0-14.0 [facility] Comment on above: Performed By: #### 1 1288490, 6995619, 4563451, 98737989, 28315213, 5193274, 9292212, 0220962 #### [facility] [address] [place] [address] Neutro Absolute 8.4 E9/L High 2.0-7.5 [facility] Comment on above: Performed By: #### 1 9452665, 2895835, 4323804, 99715783, 90259258, 8922878, 6074366, 8153014 #### [facility] [address] [place] [address] Neutro Auto 74.4 % Normal 36.0-75.0 [facility] Comment on above: Performed By: #### 1 3693097, 7137931, 1947651, 72908486, 14632505, 3457817, 7968540, 7369228 #### [facility] [address] [place] [address] Platelet 123.0 E9/L Low 150.0-500.0 [facility] Comment on above: Performed By: #### 1 3933750, 7140195, 6978567, 88794771, 47932784, 1356368, 4460119, 1468967 #### [facility] [address] [place] [address] Platelet mean volume (Bld) [Entitic vol] 8.4 fL Normal 6.4-10.8 [facility] Comment on above: Performed By: #### 1 9483388, 9417696, 7330342, 59692529, 42332110, 6332895, 4410070, 6410365 #### [facility] [address] [place] [address] RBC 4.5 E12/L Normal 4.3-5.9 [facility] Comment on above: Performed By: #### 1 7251957, 5892636, 2423903, 39570510, 13351687, 1914557, 4252165, 7755161 #### [facility] [address] [place] [address] WBC 11.3 E9/L High 4.0-11.0 [facility] Comment on above: Performed By: #### 1 6252963, 2466660, 8251558, 25379719, 67063282, 9143373, 8862759, 7914008 #### [facility] [address] [place] [address] CHEMISTRYOrdered By: SYSTEM SYSTEM on 01-05-2024 Anion [...] Normal 80.0 - 100.0 fL Remisol Heme [place] Absolute 1.1 E9/L High 0.2 - 1.0 [...] Merrill e Manageron 01-05-2024 Interdisciplinary Note - Computer Video Game Designer CRM spoke with patient. Patient was previous [...] other questions or needs at this time. [facility] Comment on above: Result Comment: Elec tronically Signed By: John TEE, Nancy\.br\Date and Time Signed: 01/05/24 13:21 EST Monitor Recordon 01-05-2024 Monitor Record [id number] 20 [id number]#1. 00TIFF [facility] Monitor Record [id number] 20 [id number]#1. 00TIFF [facility] Progress Note-Physicianon Progress Note-Physician Assessment/Plan 1. Sepsis [...] 04:40:00) Lymph Auto: 14.8 % (01/05/24 04:40:00) [place] Auto: 10.2 % (01/05/24 04:40:00) Eos Auto: 0.3 % (01/05/24 04:40:00) Basophil Auto: 0.3 % (01/05/24 04:40:00) Neutro Absolute: 8.4 E9/L High (01/05/24 04:40:00) Lymph Absolute: 1.7 E9/L (01/05/24 04:40:00) [place] Absolute: 1.1 E9/L High (01/05/24 04:40:00) Eos [...] Squam Epithelial (more content not included)... Normal [facility] Comment on above: Result Comment: Elec tronically [...] procedure., # 1 tab(s), Refills(s) 0, Pharmacy: [facility], 178, cm, 12/10/23 11:59:00 EST, Height/Length Dosing, 82, kg, 12/10/23 11:59:00 EST, Weight Dosing... alfuzosin 10 mg ER Tab: 10 mg = 1 tab(s), Oral, Daily, # 30 tab(s), Refills(s) 11, Pharmacy: [facility], 178, cm, 12/10/23 11:59:00 EST, Height/Length Dosing, 82, kg, 12/10/23 11:59:00 EST, Weight Dosing Documented Medications Documented latanoprost Opth 0.005% Kena: 1 drop(s), OPTH, Once a day (at bedtime), Other (see comment) rosuvastatin 20 mg Tab: 20 mg = 1 tab(s), Oral, Daily, High cholesterol Problem list: All Problems At risk for falls / SNOMED CT 721724289 / Possible Problem added when Risk for Falls Careplan was initiated. BPH with urinary obstruction / SNOMED CT 8132259125 / Confirmed Acute glaucoma / SNOMED CT 34401473 / Confirmed Glaucoma / SNOMED CT 99289690 / Confirmed Heart murmur / SNOMED CT 530424082 / Confirmed High cholesterol / SNOMED CT 61917363 / Confirmed High cholesterol / SNOMED CT 77363163 / Confirmed Hyperlipemia / SNOMED CT 74269349 / Confirmed Knee pain, left / SNOMED CT 86846107 / Confirmed Screen for colon cancer / SNOMED CT 842070871 / Confirmed Elevated PSA / SNOMED CT 5489139179 / Confirmed Transportation insecurity / SNOMED CT 6704362406969668 / Possible Problem added automatically by Discern Expert based on clinical documentation, Active Problems (12) Acute glaucoma At risk for falls BPH with urinary obstruction Elevated PSA Glaucoma Heart murmur High cholesterol High cholesterol Hyperlipemia Knee pain, left Screen for colon cancer Transportation insecurity Histories Past Medical History: Resolved Plantar fasciitis (572856256): Resolved. Comments: 03/07/2013 EDT 12:51 EDT - Dilcia TEE, Lyubov RIGHT FOOT Family History: Hyperlipidemia Father Mother Procedure history: Colonoscopy ([id number]) on 10/26/2023 at 58 Years. Arthroscopy of knee (498245429) on 05/07/2019 at 54 Years. Comments (more content not included)... Normal [facility] Comment on above: Result Comment: Elec tronically Signed By: Amanda ELVIN, Marvel Morton\.br\Date and Time Signed: 01/05/24 08:37 EST eGFRon 01-05-2024 eGFR 100 mL/min/1.73 m2 Normal >=59 [facility] Comment on above: Order Comment: Order added by Discern Expert. Performed By: #### 1 7482898, 1397017, 1749402, 88769551, 69889912, 2195477, 2379980, 9569100 #### [facility] [address] [place] [address] CBC w/ Auto Diffon 4 Basophil Absolute 0.0 E9/L Normal 0.0-0.2 [facility] Comment on above: Performed By: #### 1 4213427, 6860365, 5460458, 71162870, 10828926, 4443431, 2833995, 8269727 #### [facility] [address] [place] [address] Basophils/100 WBC (Bld) 0.1 % Normal 0.0-2.0 [facility] Comment on above: Performed By: #### 1 9340586, 5386166, 4914150, 37550410, 87739717, 3454342, 2549359, 2910916 #### [facility] [address] [place] [address] Eos Absolute 0.0 E9/L Normal 0.0-0.5 [facility] Comment on above: Performed By: #### 1 7771639, 1867046, 9084565, 03484480, 22030573, 5093471, 6075683, 5138957 #### [facility] [address] [place] [address] Eosinophils/100 WBC (Bld) 0.0 % Normal 0.0-8.0 [facility] Comment on above: Performed By: #### 1 4099744, 0535037, 4824328, 73607369, 64652641, 9201034, 7956434, 4947107 #### [facility] [address] [place] [address] Erythrocyte distribution width (RBC) [Ratio] 12.7 % Normal 10.9-14.2 [facility] Comment on above: Performed By: #### 1 3152057, 9782228, 2525645, 68727559, 77416634, 8476247, 0827474, 9665483 #### [facility] [address] [place] [address] Hematocrit (Bld) [Volume fraction] 44.0 % Normal 37.7-49.0 [facility] Comment on above: Performed By: #### 1 4746974, 7033272, 3009831, 79732837, 55927020, 2718333, 3592923, 2619213 #### [facility] [address] [place] [address] Hemoglobin (Bld) [Mass/Vol] 15.5 g/dL Normal 13.5-17.5 [facility] Comment on above: Performed By: #### 1 8613359, 5518137, 7572621, 97752106, 78539458, 7917014, 0558885, 1463182 #### [facility] [address] [place] [address] Lymph Absolute 0.9 E9/L Low 1.0-4.0 [facility] Comment on above: Performed By: #### 1 0710417, 5853923, 5949715, 82770702, 82377451, 6252976, 4358673, 9029217 #### [facility] [address] [place] [address] Lymphocytes/100 WBC (Bld) 6.3 % Low 14.0-50.0 [facility] Comment on above: Performed By: #### 1 8924393, 3595743, 6903243, 74016270, 77795338, 8137288, 2628835, 7338627 #### [facility] [address] [place] [address] MCH (RBC) [Entitic mass] 32.4 pg Normal 27.0-34.0 [facility] Comment on above: Performed By: #### 1 6501855, 1290762, 7296213, 59415002, 07768982, 7101327, 5316625, 8735543 #### [facility] [address] [place] [address] MCHC (RBC) [Mass/Vol] 35.1 g/dL Normal 31.4-36.0 [facility] Comment on above: Performed By: #### 1 5442277, 9890492, 6818382, 52868290, 59448493, 7756976, 5992322, 7954496 #### [facility] [address] [place] [address] MCV (RBC) [Entitic vol] 92.3 fL Normal 80.0-100.0 [facility] Comment on above: Performed By: #### 1 6079474, 9023494, 3850564, 34496962, 65098856, 5306407, 7629656, 7587116 #### [facility] [address] [place] [address] [place] Absolute 1.2 E9/L High 0.2-1.0 [facility] Comment on above: Performed By: #### 1 4979216, 4192997, 5281663, 69444691, 65144391, 8621953, 5437773, 4791050 #### [facility] [address] [place] [address] Monocytes/100 WBC (Bld) 8.3 % Normal 4.0-14.0 [facility] Comment on above: Performed By: #### 1 7127978, 6866386, 3035404, 00135248, 81902607, 6160676, 9533076, 4927120 #### [facility] [address] [place] [address] Neutro Absolute 12.5 E9/L High 2.0-7.5 [facility] Comment on above: Performed By: #### 1 0060950, 4430349, 6465338, 04529129, 83312078, 0272627, 8695256, 4389502 #### [facility] [address] [place] [address] Neutro Auto 85.3 % High 36.0-75.0 [facility] Comment on above: Performed By: #### 1 8769571, 0853705, 3284936, 17327757, 54748628, 7818421, 9995919, 4758654 #### [facility] [address] [place] [address] Platelet 130.0 E9/L Low 150.0-500.0 [facility] Comment on above: Performed By: #### 1 5951047, 9386432, 4006409, 57558923, 25317190, 8293667, 5272981, 8815156 #### [facility] [address] [place] [address] Platelet mean volume (Bld) [Entitic vol] 8.0 fL Normal 6.4-10.8 [facility] Comment on above: Performed By: #### 1 8121996, 2500866, 6647929, 23590217, 23985468, 1339128, 2754736, 7836227 #### [facility] [address] [place], [place] [address] RBC 4.8 E12/L Normal 4.3-5.9 [facility] Comment on above: Performed By: #### 1 3187282, 3189311, 5815188, 31709445, 36635886, 1212972, 4893243, 9671046 #### [facility] [address] [place] [address] WBC 14.6 E9/L High 4.0-11.0 [facility] Comment on above: Performed By: #### 1 0647109, 6994699, 5253515, 44464954, 01024913, 6230840, 8611580, 1918869 #### [facility] [address] [place] [address] CHEMISTRYOrdered By: SYSTEM SYSTEM on 01-04-2024 Lactic [...] Sensitivity Troponin I Instructions For Use, Abby Power, June 2018) CMPon 01-04-2024 Albumin [Mass/Vol] 4.6 g/dL Normal 3.3-5.0 [facility] Comment on above: Performed By: #### 1 1324961, 4032454, 3783140, 99713382, 88829795, 2675891, 9301187, 8790683 #### [facility] [address] [place] [address] Albumin/Globulin [Mass ratio] 1.6 {ratio} Normal 1.1-2.2 [facility] Comment on above: Performed By: #### 1 4628128, 2998949, 3229185, 49414354, 74936412, 0007582, 0320473, 6072569 #### [facility] [address] [place] [address] Alk Phos 57 Int._Unit/L Normal 21-98 [facility] Comment on above: Performed By: #### 1 7100166, 5623063, 7575629, 03212999, 29724476, 7402634, 8754961, 3920320 #### [facility] [address] [place] [address] ALT 23 Int._Unit/L Normal 6-46 [facility] Comment on above: Performed By: #### 1 0261858, 2650342, 9842482, 48751558, 85350558, 6764391, 6527691, 9837236 #### [facility] [address] [place] [address] Anion gap [Moles/Vol] 13 mmol/L Normal 6-16 [facility] Comment on above: Performed By: #### 1 3213296, 5002246, 9722803, 83381878, 76391372, 9774251, 9880018, 9680282 #### [facility] [address] [place] [address] AST 20 Int._Unit/L Normal 5-43 [facility] Comment on above: Performed By: #### 1 8964577, 6576211, 4387484, 01350194, 45583605, 7504529, 5817209, 3174914 #### [facility] [address] [place] [address] Bili Total 1.5 mg/dL High 0.0-1.1 [facility] Comment on above: Performed By: #### 1 8960403, 5533032, 2601799, 18122656, 23158558, 3971206, 7520673, 5170971 #### [facility] [address] [place] [address] BUN/Creat Ratio 13 No Units Normal 10-20 [facility] Comment on above: Performed By: #### 1 6681917, 1699779, 8439576, 20305056, 81625654, 5970101, 0102754, 4849885 #### [facility] [address] [place] [address] Calcium [Mass/Vol] 9.2 mg/dL Normal 8.9-11.1 [facility] Comment on above: Performed By: #### 1 5631771, 2194263, 3120387, 17239501, 23164903, 1623875, 8859061, 1041521 #### [facility] [address] [place] [address] Chloride [Moles/Vol] 98 mmol/L Low 101-111 [facility] Comment on above: Performed By: #### 1 7181529, 8933786, 5114052, 62094381, 80267652, 1120914, 2876406, 6738321 #### [facility] [address] [place] [address] CO2 [Moles/Vol] 26 mmol/L Normal 21-31 [facility] Comment on above: Performed By: #### 1 4907766, 5399969, 0120945, 36550829, 29539840, 5802590, 3992824, 8480163 #### [facility] [address] [place] [address] Creatinine [Mass/Vol] 1.3 mg/dL Normal 0.5-1.3 [facility] Comment on above: Performed By: #### 1 6895703, 2794611, 9737559, 09063266, 98456386, 3367320, 5738662, 3324742 #### [facility] [address] [place] [address] Globulin (S) [Mass/Vol] 2.9 g/dL Normal 1.4-4.0 [facility] Comment on above: Performed By: #### 1 3399856, 5318864, 4145373, 09082222, 65443387, 9085431, 9869509, 2549894 #### [facility] [address] [place] [address] Glucose [Mass/Vol] 134 mg/dL Normal 55-199 [facility] Comment on above: Performed By: #### 1 6001601, 6515869, 5943120, 01355334, 80377384, 6862945, 8440750, 1479116 #### [facility] [address] [place] [address] Potassium [Moles/Vol] 3.7 mmol/L Normal 3.5-5.3 [facility] Comment on above: Performed By: #### 1 0701937, 5338306, 7338174, 17059276, 84614681, 6280442, 9489097, 5264815 #### [facility] [address] [place] [address] Protein [Mass/Vol] 7.5 g/dL Normal 6.0-7.8 [facility] Comment on above: Performed By: #### 1 2682279, 2854429, 7737684, 22374635, 71947405, 0843662, 7962200, 0752893 #### [facility] [address] [place] [address] Sodium [Moles/Vol] 133 mmol/L Low 135-145 [facility] Comment on above: Performed By: #### 1 5813443, 0774543, 6120146, 30474349, 44027820, 4651461, 0727672, 0844587 #### [facility] [address] [place] [address] Urea nitrogen [Mass/Vol] 17 mg/dL Normal 5-21 [facility] Comment on above: Performed By: #### 1 8178768, 5827255, 3123031, 30293694, 64958197, 7468712, 8809339, 0190872 #### [facility] [address] [place] [address] COAGULATIONOrdered By: Harris Clifton on 01-04-2024 aPTT Coag (PPP) [Time] 34.6 s Normal 25.1 - 36.5 second(s) [facility] Auto Coag Comment on above: Interpretive Data: [...] same coagulation reagent and instrumentation as [facility]. Currently there are no coagulation studies available worldwide for children to 14 days, and no normal ranges. Heparin therapeutic range (represented by Anti-Factor Xa activity of 0.2 - 0.4 U/mL) corresponds to PTT of 56.6 - 109.0 sec. INR Coag (PPP) [Relative time] 1.41 {INR} Invalid Interpretation Code [facility] Auto [facility]ag Comment on above: Interpretive Data: I NR results are specifically intended to assess patients stabilized on long-term Anticoagulation therapy suggested INR s Less Intensive Anticoagulation 2.0 3.0 Conventional Range 3.0 4.5 PT Coag (PPP) [Time] 15.9 s High 9.4 - 1 2.5 second(s) [facility] Auto Coag Comment on above: Interpretive Data: [...] same coagulation reagent and instrumentation as [facility]. Currently there are no coagulation studies available worldwide for children to 14 days, and no normal ranges. Consent for Treatmenton 12-20 Consent for Treatment [id number] 0TIFF Normal [facility] ED Clinical Summaryon 2023 ED Clinical Summary [place] [id number] ED Clinical Summary Person Information Name: STEVE WILLIAMSON Shayna/[facility] Age: 58 Years : 1965 Sex: Male Language: Stateless PCP: DELPHINE BERRY NP Marital Status: Visit Id: Visit Reason: Post surgical problem; Fever; Hematuria; DIFFICULTY URINATING / LOW GRADE FEVER / SENT FROM [facility] Speciality: Acuity: 2 Enc Type: Inpatient Med Service: Emergency Arrival: 01/04/2024 15:24:45 Discharge: LOS: 000 03:12 Checkin: 01/04/2024 15:24:45 Checkout: 01/04/2024 18:36:58 Dispo Type: Admitted as IP to this [facility] EVENTS: Event Name Event Status Request Date/Time [...] Patient Care Request 01/04/2024 18:18:37 ADDRESS: [address] [place] [phone] PHYS DOC NOTES: MEDICAL INFORMATION: Prescriptions Given: [...] Instructions: Follow up: DIAGNOSIS: Prostatitis; Sepsis Normal [facility] ED Patient Education Noteon 01-04-2024 ED Patient Education Note Normal [facility] ED Patient Summaryon 024 ED Patient Summary [place] [id number] Patient Discharge Instructions Person Information Name: STEVE WILLIAMSON Age: 58 Years Arrival Date: 01/04/2024 15:24:45 Discharge Diagnosis: Prostatitis; Sepsis Primary Care Physician: KRISTI MENA, [facility] Provider Information Primary Provider: Sara Patel M.D. [employer] Operator:None The exam and treatment you received in the Emergency Department were for an urgent problem and are not intended as complete care. It is important that you follow up with a doctor, nurse practitioner, or physician?s commercial real estate assistant for ongoing care. If your symptoms [...] opioids can be used to help relieve hhdpmdzz-vz-uvebbj pain and are often prescribed following a [...] be struggling with addiction, tell your health foster care worker and ask for guidance or call [facility]S National Helpline at 4-847-068-BOEH. v Source: US Department of Health and Human Services/Center for Disease Control & Prevention [facility] Medications Given: Medication Dose Route Sodi (more content not included)... Normal [facility] Influenza A&B Agon Influenzae A Ag Negative Normal Negative [facility] Comment on above: Performed By: #### 1 [id number], 4993036, 7740544, 60268908, 41751021, 6910244, 9645823, 4897063 #### [facility] [address] [place] [address] Influenzae B Ag Negative Normal Negative [facility] Comment on above: Result Comment: Test sensitivity and specificity vary for age group, specimen type, antigen types, and prevalence of disease. Test results must be evaluated in conjunction with other clinical data available to the physician. Individuals who received nasally administered Influenza A vaccine may have positive test results up to 3 days after vaccination. Performed By: #### 1 [id number], 7539547, 9016451, 51900063, 54863321, 6694367, 4713683, 0474242 #### [facility] [address] [place] [address] Laboratory - Microbiology an d Antimicrobial susceptibilityOrdered By: Maryjo Ventura on 01-04-2024 Bacteria identified Cx Nom (U) No growth to date [facility] Lactic Acidon 01-04-2024 Lactic Acid Lvl 1.0 mmol/L Normal 0.5-2.2 [facility] Comment on above: Performed By: #### 2 [id number] #### [facility] [address] [place] [address] Lactic Acid Lvl 1.3 mmol/L Normal 0.5-2.2 [facility] Comment on above: Performed By: #### 1 7080152, 7419822, 6776684, 44718178, 65166541, 8470569, 5949099, 6044039 #### [facility] [address] [place] [address] MICRO OTHER TESTSOrdered By: Adriana Rivera on 01-04-2024 Influenzae A Ag Negative (01/04/24 4:24 PM) Normal Negative [facility] Man Sero Influenzae B Ag Negative 1 (01/04/24 4:24 PM) Normal Negative [facility]ero Comment on above: Interpretive Data: [...] Ctl Pass (01/04/24 4:24 PM) Normal [facility] Man Sero Rapid COV Int POS Ctl Pass (01/04/24 4:24 PM) Normal [facility] Sero SARS-CoV+SARS-CoV-2 (COVID-19) Ag IA.rapid Ql (Resp) Not Detected 6 (01/04/24 4:24 PM) Normal Not Detected [facility] Man Sero Comment on above: Interpretive Data: T he i-Optics Veritor System for Rapid Detection of SARS-CoV-2 [...] revoked sooner. Monitor Recordon 01-04-2024 Monitor Record [id number]#1. 00TIFF Normal [facility] No Panel InformationOrdered By: ANGPROCESSSERVER MICROBIOLOGY on 01-04-2024 Blood Culture Charcoal No growth at 3 da ys. Final to follow at 7 days. [facility] Blood Culture Charcoal No growth at 3 da ys. Final to follow at 7 days. [facility] PT & PTTon 01-04-2024 aPTT Coag (PPP) [Time] 34.6 second(s) Normal 25.1-36.5 [facility] Comment on above: Result Comment: Para meter [...] same coagulation reagent and instrumentation as [facility]. Currently there are no coagulation studies available worldwide for children to 14 days, and no normal ranges. Heparin therapeutic range (represented by Anti-Factor Xa activity of 0.2 - 0.4 U/mL) corresponds to PTT of 56.6 - 109.0 sec. Performed By: #### 1 6279862, 1535492, 0243700, 17546132, 90201294, 4182988, 5881951, 3724866 #### [facility] [address] [place] [address] INR Coag (PPP) [Relative time] 1.41 {INR} Invalid Interpretation Code [facility] Comment on above: Result Comment: INR results are specifically intended to assess patients stabilized on long-term Anticoagulation therapy suggested INR?s ?Less Intensive Anticoagulation? 2.0 ? 3.0 Conventional Range 3.0 ? 4.5 Performed By: #### 1 2562483, 0031072, 9307182, 63641946, 76816211, 8396165, 0020921, 7853978 #### [facility] [address] [place] [address] PT Coag (PPP) [Time] 15.9 second(s) High 9.4-12.5 [facility] Comment on above: Result Comment: 15 d [...] same coagulation reagent and instrumentation as [facility]. Currently there are no coagulation studies available worldwide for children to 14 days, and no normal ranges. Performed By: #### 1 1795938, 6878585, 5440276, 08807744, 78340476, 6311546, 8732151, 9259450 #### [facility] [address] [place] [address] Rapid COVID Antigen ([facility])on 01-04-2024 Rapid COV Int NEG Ctl Pass Normal [facility] Comment on above: Performed By: #### 1 1819102, 8513783, 2042199, 82640770, 77984024, 8781750, 8793615, 6054737 #### [facility] [address] [place] [address] Rapid COV Int POS Ctl Pass Normal [facility] Comment on above: Performed By: #### 1 7867783, 1082855, 9037641, 29557644, 10159441, 2705260, 7266671, 0481903 #### [facility] [address] [place] [address] SARS-CoV+SARS-CoV-2 (COVID-19) Ag IA.rapid Ql (Resp) Not detected Normal Not Detected [facility] Comment on above: Result Comment: The Play[employer] System for Rapid Detection of SARS-CoV-2 is [...] or revoked sooner. Performed By: #### 1 6882219, 6932582, 1098021, 77967583, 85811422, 7889710, 8939697, 2032952 #### [facility] [address] [place] [address] Troponinon 01-04-2024 Troponin 8.50 pg/mL Low 15.90-38.40 [facility] Comment on above: Result Comment: The 95% CI (Confidence Interval) PPV (Positive Predictive Value) for myocardial infarction in females is 38 pg/mL, in males 51 pg/mL. The results should be used in conjunction with clinical conditions of myocardial infarction. (Access High Sensitivity Troponin I Instructions For Use, Abby Baudilio, June 2018) Performed By: #### 1 9339971, 2631916, 7719694, 88409948, 78511407, 7026873, 3303320, 4954141 #### [facility] [address] [place] [address] UA With Cult Reflexon 2023 Bacteria LM Ql (Urine sed) TRACE Normal Trace [facility] Comment on above: Performed By: #### 2 827074 #### [facility] [address] [place] [address] Bilirubin Ql (U) 1+ Abnormal Negative [facility] Comment on above: Performed By: #### 2 875717 #### [facility] [address] [place] [address] Clarity (U) CLEAR Normal Clear [facility] Comment on above: Performed By: #### 2 174340 #### [facility] [address] [place] [address] Color (U) YELLOW Normal Yellow [facility] Comment on above: Performed By: #### 2 228980 #### [facility] [address] [place] [address] Epithelial cells.squamous LM.HPF (Urine sed) [#/Area] 0-2 Normal 0-2 [facility] Comment on above: Performed By: #### 2 321103 #### [facility] [address] [place] [address] Glucose Test strip (U) [Mass/Vol] Negative Normal Negative [facility] Comment on above: Performed By: #### 2 327048 #### [facility] [address] [place] [address] Hemoglobin Ql (U) 3+ Abnormal Negative [facility] Comment on above: Performed By: #### 2 673811 #### [facility] [address] [place] [address] Ketones (U) [Mass/Vol] 1+ Abnormal Negative [facility] Comment on above: Performed By: #### 2 788364 #### [facility] [address] [place] [address] Riley.plasma/Riley.R BC (Bld) [Mass ratio] 4-20 Normal 0-3 [facility] Comment on above: Performed By: #### 2 951606 #### [facility] [address] [place] [address] Mucus Ql (Urine sed) 1+ Normal [facility] Comment on above: Performed By: #### 2 327824 #### [facility] [address] [place] [address] Nitrite Ql (U) Negative Normal Negative [facility] Comment on above: Performed By: #### 2 645652 #### [facility] [address] [place] [address] pH (U) 6.0 [pH] Invalid Interpretation Code 5.0-9.0 [facility] Comment on above: Performed By: #### 2 544523 #### [facility] [address] [place] [address] Protein (U) [Mass/Vol] TRACE Abnormal Negative [facility] Comment on above: Performed By: #### 2 752922 #### [facility] [address] [place] [address] Specific gravity (U) [Rel density] 1.025 Invalid Interpretation Code 1.005-1.030 [facility] Comment on above: Performed By: #### 2 970189 #### [facility] [address] [place] [address] Type of Urine collection method Clean Catch Normal [facility] Comment on above: Performed By: #### 2 027695 #### [facility] [address] [place] [address] Urobilinogen Qn (U) 0.2 {Kishan'U}/dL Normal 0.0-1.0 [facility] Comment on above: Performed By: #### 2 577685 #### [facility] [address] [place] [address] WBC Auto Ql (U) Negative Normal Negative [facility] Comment on above: Performed By: #### 2 105771 #### [facility] [address] [place] [address] WBC LM.HPF (Urine sed) [#/Area] 0-5 Normal 0-5 [facility] Comment on above: Performed By: #### 2 755668 #### [facility] [address] [place] [address] URINALYSISOrdered By: Parish Clifton on 01-04-2024 Bacteria [...] Interpretation Code Negative [facility] UA Auto SS Riley.plasma/Riley.R BC (Bld) [Mass ratio] 4-20 /HPF Normal [...] [facility] UA Auto SS Urobilinogen Qn (U) 0.1014217 {Kishan'U}/dL Normal 0.0 - 1.0 EU/dL [facility] [...] mGy = na DAP = na Normal [facility] eGFRon 01-04-2024 eGFR 64 mL/min/1.73 m2 Normal >=59 [facility] Comment on above: Order Comment: Order added by Discern Expert. Performed By: #### 1 5451582, 9103765, 3539854, 79073400, 01902232, 3501129, 0620776, 6713783 #### [facility] [address] [place] [address] Consent for Procedure/Surger yon 01-01-2024 Consent for Procedure/Surgery [id number]#1. 00TIFF [facility] Consent for Treatmenton 12-20 Consent for Treatment [id number] [id number]#1.0 0TIFF [facility] IntraOperative Documentson 0 01-01-2024 IntraOperative Documents [id number]#1. 00TIFF [facility] Main OR Intraoperative Recor don 01-01-2024 Main OR Intraoperative Record IntraOp Document Type FTURO Summary Primary Physician: Nadir GARCÍA MD Finalized Date/Time: 01/01/24 10:40:42 Pt. Name: STEVE WILLIAMSON/Sex: 1965 Male Med Rec #: [id number] Physician: Nadir GARCÍA MD Financial #: [id number] Pt. Type: O Room/Bed: / Admit/Disch: 01/01/24 [...] Teena Joya Role Performed Surgeon - Primary Banjo Repairer - Primary Scrub - Primary Time In [...] By: JOSEPH Villafuerte RN, Ruthann 01/01/24 10:40 [facility] Main OR Preoperative Recordo n 01-01-2024 Main OR Preoperative Record Holding Area Document Type FTURO Summary Primary Physician: Nadir GARCÍA MD Finalized Date/Time: 01/01/24 10:31:15 Pt. Name: STEVE WILLIAMSON.O.B./Sex: 1965 Male Med Rec #: [id number] Physician: Nadir GARCÍA MD Financial #: [id number] Pt. Type: O Room/Bed: / Admit/Disch: 01/01/24 [...] Complaints of Pain: No Skin Integrity Intact, Winkelman, Warm, & Dry Vitals - EU Blood Pressure 133/83 Pulse 63 bpm Respirations 18 br/min SPO2 96 % RN Reviewed Yes Last Modified By: JOSEPH Villafuerte RN, Ruthann 01/01/24 10:31:13 Finalized By: JOSEPH Villafuerte RN, Ruthann Document Signatures Signed By: Johana Casas LPN 01/01/24 10:05 JOSEPH Villafuerte RN, Ruthann 01/01/24 10:31 Normal [facility] Operative Reporton Operative Report Patient: STEVE WILLIAMSON [...] were sent to pathology for evaluation. Normal [facility] Comment on above: Result Comment: Elec tronically [...] for your post-operative appointment in 1-2 weeks [phone] or [phone] Normal [facility] Prostate Histology ([facility]) on 01-01-2024 PH Method of Extraction Needle Biopsy Normal [facility] Comment on above: Performed By: #### 1 [id number] ####[facility] [address] [place] [address] PH Number of Jars 2 Invalid Interpretation Code [facility] Comment on above: Performed By: #### 1 [id number] ####[facility] [address] [place] [address] PH Specimen 1 L Base Prostate Normal [facility] Comment on above: Performed By: #### 1 235576995 ####[facility] [address] [place] [address] PH Specimen 10 R Lat Bse Prost Normal [facility] Comment on above: Performed By: #### 1 [id number] ####[facility] [address] [place] [address] PH Specimen 11 R Lat Mid Prost Normal [facility] Comment on above: Performed By: #### 1 [id number] ####[facility] [address] [place] [address] PH Specimen 12 R Lat Apx Prost Normal [facility] Comment on above: Performed By: #### 1 136788523 ####[facility] [address] [place] [address] PH Specimen 2 L Mid Prostate Normal [facility] Comment on above: Performed By: #### 1 [id number] ####[facility] [address] [place] [address] PH Specimen 3 L Apx Prostate Normal [facility] Comment on above: Performed By: #### 1 405528078 ####[facility] [address] [place] [address] PH Specimen 4 L Lat Bse Prost Normal [facility] Comment on above: Performed By: #### 1 629497081 ####[facility] [address] [place] [address] PH Specimen 5 L Lat Mid Prost Normal [facility] Comment on above: Performed By: #### 1 514684324 ####[facility] [address] [place] [address] PH Specimen 6 L Lat Apx Prost Normal [facility] Comment on above: Performed By: #### 1 739721158 ####[facility] [address] [place] [address] PH Specimen 7 R Base Prostate Normal [facility] Comment on above: Performed By: #### 1 686478401 ####[facility] [address] [place] [address] PH Specimen 8 R Mid Prostate Normal [facility] Comment on above: Performed By: #### 1 [id number] ####[facility] [address] [place] [address] PH Specimen 9 R Apx Prostate Normal [facility] Comment on above: Performed By: #### 1 383195284 ####[facility] [address] [place] [address] PH Type of Service Technical Only Normal [facility] Comment on above: Performed By: #### 1 [id number] ####[facility] [address] [place] [address] Physician Referralon 024 Physician Referral [id number] 0TIFF Normal [facility] Ambulatory Visit Summaryon 0 12-10-2023 Ambulatory Visit Summary STEVE WILLIAMSON :1965 Visit Date:12/10/2023 Ambulatory Visit Instructions Your Diagnosis BPH with urinary obstruction Elevated PSA Tests Performed Urnls Dip Stick Auto w/o Microscopy POC 41992 Your Care Team Attending Physician - Nadir [...] Nadir GARCÍA MD Where: [facility] [place] Normal [facility] Patient Educationon 12-10-19 24 Patient Education Urology [...] Follow these instructions at home: ? Take nzwc-gxr-alnxzsc and prescription medicines only as told by [...] the medicine (more content not included)... Normal [facility] IntraOperative Documentson 1 01-15-2023 IntraOperative Documents [id number]#1. 00TIFF Normal [facility] Postoperative Documentson Postoperative Documents [id number] 0TIFF [facility] Reminderson 11-05-2023 Reminders - From: [place] To: [facility] - Reminders/Recalls; Sent: 11/05/2023 10:35:03 EST Show up: 09/19/2026 10:34:00 EST Subject: Ambulatory Reminder Due Date/Time: 10/26/2026 10:34:00 EST Reminder/Recall Repeat colonoscopy in 3 years(2025) due to tubular adeoma Normal [facility] Result Letter Officeon 11-05 Result Letter Office November 05, 2023 STEVE WILLIAMSON [id number] [address] : 1965 Below is a summary of [...] letter prior to your next due date. [facility] [phone] [facility] Main OR Intraoperative Recor don 10-30-2023 Main OR Intraoperative Record IntraOp Document Type FT Summary Primary Physician: Cristóbal Lowe MD Finalized Date/Time: 10/30/23 13:16:26 Pt. Name: STEVE WILLIAMSON/Sex: 1965 Male Med Rec #: [id number] Physician: Cristóbal Lowe MD Financial #: [id number] Pt. Type: O Room/Bed: / Admit/Disch: 10/26/23 [...] Arreola RN, Judy Padron Role Performed Anesthesiologist Banjo Repairer - Primary Scrub - Primary Product Introduction Manager Time In 10/26/23 10:09:00 10/26/23 10:09:00 10/26/23 [...] and tissue Entry 1 Skin Integrity Intact, Winkelman, Warm, and Skin Abnormality No Dry Outcomes [...] the p (more content not included)... Normal [facility] Consenton 10-29-2023 Consent [id number]. 00TIFF Normal [facility] Discharge Instructionson Discharge Instructions [id number]. 00TIFF Normal [facility] Progress Note-Physicianon Progress Note-Physician Patient: STEVE WILLIAMSON Age: 58 years Sex: Male : 1965 Associated Diagnoses: None Author: Mavrel Ibarra Jr, DO Preoperative Information Anesthesia Preop [...] Screen for colon cancer / SNOMED CT 696856080 / Confirmed Knee pain, left / SNOMED CT 30594236 / Confirmed High cholesterol / SNOMED CT 90728092 / Confirmed High cholesterol / SNOMED CT 28719571 / Confirmed Acute glaucoma / SNOMED CT 03747846 / Confirmed Resolved: Plantar fasciitis / SNOMED CT 112751186 RIGHT FOOT Histories Procedure history: Arthroscopy of knee ([id number]) on 05/07/2019 at 54 Years. Comments: 05/07/2019 [...] adequate air exchange. Cardiovascular: Regular rhythm. Plan [employer] (ASA) physical status classification: Class II. Anesthetic Preoperative Plan: Anesthesia General. [facility] Comment on above: Result Comment: Elec tronically Signed By: Marvel Ibarra Jr, DO\.br\Date and Time Signed: 10/28/23 10:10 EST Progress Note-Physician Patient: STEVE WILLIAMSON Age: 58 years Sex: Male : 1965 Associated Diagnoses: None Author: Marvel Ibarra Jr, DO Postoperative Information Postoperative disposition: Postoperative disposition: To PACU. Optimetrix number: Optimetrix number [id number]. Anesthetic utilized: General. Health Status Allergies: Allergic [...] when meets criteria ( To home ). [facility] Comment on above: Result Comment: Elec tronically Signed By: Fred Kaur DO, Marvel Morton\.br\Date and Time Signed: 10/28/23 10:09 EST Consent for Treatmenton Consent for Treatment [id number]#1.0 0TIFF [facility] Discharge Instructionson Discharge Instructions STEVE WILLIAMSON :1965 Visit Date:10/26/2023 Inpatient Discharge Instructions Your Care Team Admitting Physician - Cristóbal oLwe MD Referring Physician - Cristóbal Lowe MD Reason for Your Visit SCREENING Your Diagnosis Colon cancer screening Tests Performed Pathology Tissue Exam -- Results Pending -- Please visit your patient portal for your results or contact your primary care physician. This Is Your Medications List acetaminophen (Tylenol 325 mg Tab) acetaminophen-hydrocod one ([place] 325 mg-5 mg oral tablet) ascorbic acid [...] LEVIN, Nadir Mercado Where: [facility] Comment on above: Result Comment: Elec tronically [...] Education and Follow-up: Counseled: Patient, Family. Normal [facility] Comment on above: Result Comment: Elec tronically Signed By: Mynor LEVIN, Cristóbal Winkler\.br\Date and Time Signed: 10/26/23 10:32 EST Inpatient Patient Summaryon 10-26-2023 Inpatient Patient Summary [place] [id number] [facility] Clinical Discharge Instructions PERSON INFORMATION Name: STEVE WILLIAMSON PHYSICIANS Admitting Physician: Cristóbal Lowe MD Attending Physician: Cristóbal Lowe MD PCP: KRISTI MENA, [facility] Discharge Diagnosis: Colon cancer screening Comment: PATIENT EDUCATION INFORMATION Instructions: Colonoscopy, Care After Surgery Salam (CUSTOM); Diverticulosis MAGR (CUSTOM); Hemorrhoids; Colon Polyps Medication Leaflets: Follow up: With: Address: When: Cristóbal Lowe [address] [place] [address], [facility] [address], [place] [phone] Business (1) Comments: office will calll for follow up Type Location Start Finish State [facility]RO New Patient [facility] EU Mandeep 12/10/2023 11:00 AM 12/10/2023 11:15 AM Confirmed MEDICATION LIST Medications to Continue with No Changes Other Medications acetaminophen (Tylenol 325 mg Tab) 2 Tablets By Mouth as needed as needed for pain. acetaminophen-hydrocod one ([place] 325 mg-5 mg oral tablet) 1 - [...] Tablets By Mouth every day. Comment: Normal [facility] Main OR PACU I Recordon 12-0 Main OR PACU I Record PACU Phase I Docum ent Type FT Summary Primary Physician: Cristóbal Lowe MD Finalized Date/Time: 10/26/23 12:44:34 Pt. Name: STEVE WILLIAMSON Selene Perrin/Sex: 1965 Male Med Rec #: [id number] Physician: Cristóbal Lowe MD Financial #: [id number] Pt. Type: O Room/Bed: / Admit/Disch: 10/26/23 [...] By: Sarah Mendoza RN 10/26/23 12:44 Normal [facility] Main OR Preoperative Recordo n 10-26-2023 Main OR Preoperative Record Holding Area Document Type FT Summary Primary Physician: Cristóbal Lowe MD Finalized Date/Time: 10/26/23 09:20:33 Pt. Name: STEVE WILLIAMSON/Sex: 1965 Male Med Rec #: [id number] Physician: Cristóbal Lowe MD Financial #: [id number] Pt. Type: O Room/Bed: / Admit/Disch: 10/26/23 [...] By: Pati Arreola RN 10/26/23 09:20 Normal [facility] Monitor Recordon 10-26-2023 Monitor Record [id number]. 00TIFF Normal [facility] Monitor Record [id number]#1. 00TIFF Normal [facility] Outpatient Surgery Discharge Instructionon 10-26-2023 Outpatient Surgery Discharge Instruction [address] [address] Patient Discharge Instructions PERSON INFORMATION [...] Follow up: With: Address: When: Cristóbal Lowe [address] [place] [address] Aimee, [facility] [address] [address] [phone] [facility] (1) Comments: office will calll for follow up Type Location Start Finish State URO New Patient [facility] EU [place] 12/10/2023 11:00 AM 12/10/2023 11:15 AM Confirmed Pharmacy Information: Leonardo Streeter , Mail Order You may receive a survey from [employer] asking you to rate your care experience. Your feedback is important and will help us understand what we do well and how we can improve the quality of care we provide to you, your loved ones and our community. It?s an honor to serve you. Thank you for choosing [facility] HERE ARE THE MEDICATION CHANGES THAT OCCURRED DURING YOUR HOSPITAL STAY Medications to Continue with No Changes Other Medications acetaminophen (Tylenol 325 mg Tab) 2 Tablets By Mouth as needed as needed for pain. acetaminophen-hydrocod one ([place] 325 mg-5 mg oral tablet) 1 - [...] more than (more content not included)... Normal [facility] Patient Education - Texton 1 12-27-2022 Patient [...] unsweetened, w/added ascorbic acid 1 cup 0.5 Clay 1 cup 0.7 Vegetables Cooked Green beans 1 cup 4.0 Carrots 1/2 cup sliced 2.3 Peas 1 cup 8.8 Potato (baked, with skin) 1 medium potato 3.8 Raw [place] (with peel) 1 cucumber 1.5 Lettuce 1 [...] 8.7 Peanuts 1/2 cup 7.9 [facility] SEEK IMMEDIATE MEDIC (more content not included)... Normal [facility] Insurance Correspondenceon 12-15-2022 Insurance Correspondence [id number]#1. 00TIFF [facility] Consent for Procedure/Surger yon 08-29-2023 Consent for Procedure/Surgery [id number]#1. 00TIFF [facility] [place] Ambulatory Visit Summaryon 1 Ambulatory Visit Summary STEVE WILLIAMSON :1965 Visit Date:08/28/2023 Ambulatory Visit Instructions Your Diagnosis Screen for colon cancer Your Care Team Attending Physician - Jennifer Guan CNP Primary Care Physician - KRISTI MENA, DELPHINE Referring Physician - ARNOLD MOYA MD This Is Your Medications List Contact prescribing physician if questions or concerns acetaminophen (Tylenol 325 mg Tab) acetaminophen-hydrocod one ([place] 325 mg-5 mg oral tablet) ascorbic acid [...] if questions or concerns Unchanged acetaminophen-hydrocod one ([place] 325 mg-5 mg oral tablet) See instructions [...] including vitamins, herbs, eye drops, creams, and alnv-vmy-xvmryja medicines. ? Any problems you or family [...] may incl (more content not included)... Normal [facility] Gastroenterology Office/Clin ic Noteon 08-28-2023 Gastroenterology Office/Clinic [...] prep. Follow-up With When Contact Information Freida CERTIFIED REGISTERED DENTAL ASSISTANT, Jennifer A Within 1 to 2 weeks [...] drop(s), OPTH, Once a day (at bedtime) [place] 325 mg-5 mg oral tablet, See Instructions, [...] [id number] vax 02/09/2021 Recorded 2023-08-27: TPV50 Normal [facility] Comment on above: Result Comment: Elec tronically Signed By: Freida LECHUGA, Jennifer Morton\julisa\Date and Time Signed: 08/28/23 15:42 EDT Physician Orderon 08-23-2023 Physician Order [id number]#1.0 0CD:127 Normal [facility] Physician Referralon 023 Physician Referral [id number]#1.0 0CD:127 Normal [facility] Auto Diffon 08-21-2023 Basophils/100 WBC (Bld) 0.5 % Normal 0.0-2.0 [facility] Comment on above: Order Comment: Order Added by Discern Expert. Performed By: #### 2 [id number] #### [facility] [address] [place] [address] Basophils/Leukocytes Auto (Bld) [Pure # fraction] 0.0 E9/L Normal 0.0-0.2 [facility] Comment on above: Order Comment: Order Added by Discern Expert. Performed By: #### 2 924486 #### [facility] [address] [place] [address] Eosinophils/100 WBC (Bld) 2.2 % Normal 0.0-8.0 [facility] Comment on above: Order Comment: Order Added by Discern Expert. Performed By: #### 2 734783 #### [facility] [address] [place] [address] Eosinophils/Leukocytes Auto (Bld) [Pure # fraction] 0.1 E9/L Normal 0.0-0.5 [facility] Comment on above: Order Comment: Order Added by Discern Expert. Performed By: #### 2 794262 #### [facility] [address] [place] [address] Lymphocytes/100 WBC (Bld) 22.9 % Normal 14.0-50.0 [facility] Comment on above: Order Comment: Order Added by Discern Expert. Performed By: #### 2 387124 #### [facility] [address] [place] [address] Lymphocytes/Leukocytes Auto (Bld) [Pure # fraction] 1.4 E9/L Normal 1.0-4.0 [facility] Comment on above: Order Comment: Order Added by Discern Expert. Performed By: #### 2 921588 #### [facility] [address] [place] [address] Monocytes/100 WBC (Bld) 9.4 % Normal 4.0-14.0 [facility] Comment on above: Order Comment: Order Added by Discern Expert. Performed By: #### 2 729162 #### [facility] [address] [place] [address] Monocytes/Leukocytes Auto (Bld) [Pure # fraction] 0.6 E9/L Normal 0.2-1.0 [facility] Comment on above: Order Comment: Order Added by Discern Expert. Performed By: #### 2 714207 #### [facility] [address] [place] [address] Neutrophils/100 WBC (Bld) 65.0 % Normal 36.0-75.0 [facility] Comment on above: Order Comment: Order Added by Discern Expert. Performed By: #### 2 180805 #### [facility] [address] [place] [address] Neutrophils/Leukocytes Auto (Bld) [Pure # fraction] 3.9 E9/L Normal 2.0-7.5 [facility] Comment on above: Order Comment: Order Added by Discern Expert. Performed By: #### 2 438354 #### [facility] [address] [place] [address] CBC w/ Auto Diffon Erythrocyte distribution width (RBC) [Ratio] 12.6 % Normal 10.9-14.2 [facility] Comment on above: Performed By: #### 1 3457366, 2735183, 5741367, 790052410, 88074525, 2837492, 0470912, 72995368 ####[facility] [address] [place] [address] Hematocrit (Bld) [Volume fraction] 45.8 % Normal 37.7-49.0 [facility] Comment on above: Performed By: #### 1 4351893, 9241571, 3401543, 771679236, 42371612, 8057746, 0253717, 39925465 ####[facility] [address] [place] [address] Hemoglobin (Bld) [Mass/Vol] 16.1 g/dL Normal 13.5-17.5 [facility] Comment on above: Performed By: #### 1 8119615, 5351561, 0120221, 381758465, 11506154, 6601663, 4162370, 82146575 ####[address] [place] [address] MCH (RBC) [Entitic mass] 32.8 pg Normal 27.0-34.0 [facility] Comment on above: Performed By: #### 1 0311819, 3262570, 1470814, 731663717, 61184260, 1067176, 5627870, 29555536 ####[address] [place] [address] MCHC (RBC) [Mass/Vol] 35.1 g/dL Normal 31.4-36.0 [facility] Comment on above: Performed By: #### 1 8800412, 4538734, 3271579, 723874576, 93461793, 8668807, 5366454, 49671531 ####[address] [place] [address] MCV (RBC) [Entitic vol] 93.5 fL Normal 80.0-100.0 F [facility] Comment on above: Performed By: #### 1 2173906, 8223332, 9883896, 002379119, 29125861, 4536339, 7815307, 64234607 ####[address] [place] [address] Platelet mean volume (Bld) [Entitic vol] 10.0 fL Normal 6.4-10.8 [facility] Comment on above: Performed By: #### 1 4717857, 0493622, 2291710, 840920102, 49758392, 6281029, 3828379, 08572215 ####[address] [place] [address] Platelets (Bld) [#/Vol] 137.0 E9/L Low 150.0-500.0 [facility] Comment on above: Performed By: #### 1 7974929, 0401814, 5231436, 108278975, 42519816, 6663839, 8194459, 48317384 ####[address] [address] RBC (Bld) [#/Vol] 4.9 E12/L Normal 4.3-5.9 [facility] Comment on above: Performed By: #### 1 2509398, 0854872, 7083745, 411213911, 44139008, 8369998, 3814281, 19903153 ####[address] [address] WBC corrected for nucl RBC Auto (Bld) [#/Vol] 6.0 E9/L Normal 4.0-11.0 [facility] Comment on above: Performed By: #### 1 1350145, 4347032, 2132313, 918873158, 72858810, 8514845, 3270374, 52397617 ####[address] [address] CMPon 08-21-2023 Albumin [Mass/Vol] 4.7 g/dL Normal 3.3-5.0 [facility] Comment on above: Performed By: #### 1 2678261, 9863959, 5382631, 061296229, 02464655, 9752470, 3613891, 67794923 ####[address] [place] [address] Albumin/Globulin (S) [Mass conc ratio] 1.7 Normal 1.1-2.2 [facility] Comment on above: Performed By: #### 1 6304357, 7635065, 7241490, 237957448, 87051589, 8309382, 6233909, 38345272 ####[address] [place] [address] ALP [Catalytic activity/Vol] 45 Int._Unit/L Normal 21-98 [facility] Comment on above: Performed By: #### 1 7891723, 1458742, 9160582, 422589672, 31299815, 1929199, 0531665, 28509875 ####[address] [place] [address] ALT No additional P-5'-P [Catalytic activity/Vol] 31 Int._Unit/L Normal 6-46 [facility] Comment on above: Performed By: #### 1 8509433, 8820699, 4337616, 500087626, 80468298, 2209213, 8760646, 58827287 ####[address] [place] [address] Anion gap [Moles/Vol] 13 mmol/L Normal 6-16 [facility] Comment on above: Performed By: #### 1 2721566, 5723954, 9874436, 134194958, 26691514, 9626627, 1239989, 75971772 ####[address] [place] [address] AST [Catalytic activity/Vol] 26 Int._Unit/L Normal 5-43 [facility] Comment on above: Performed By: #### 1 3474904, 8916334, 5409353, 335523323, 56612670, 4552323, 3885687, 61011146 ####[address] [place] [address] Bilirubin [Mass/Vol] 0.6 mg/dL Normal 0.0-1.1 [facility] Comment on above: Performed By: #### 1 2661630, 4315505, 1419789, 267994970, 34439442, 9808508, 5220219, 71488766 ####[facility] [address] [place] [address] Calcium [Mass/Vol] 9.9 mg/dL Normal 8.9-11.1 [facility] Comment on above: Performed By: #### 1 3552625, 6464574, 0567173, 284100360, 13804589, 0003811, 9489189, 24473657 ####[facility] [address] [place] [address] Chloride [Moles/Vol] 109 mmol/L Normal 101-111 [facility] Comment on above: Performed By: #### 1 5807010, 2582944, 9079630, 179234520, 31556725, 3195897, 2188818, 32784976 ####[facility] [address] [place] [address] CO2 [Moles/Vol] 26 mmol/L Normal 21-31 [facility] Comment on above: Performed By: #### 1 2556598, 1170414, 9350073, 376413327, 45809098, 7322641, 4550766, 10003678 ####[facility] [address] [place] [address] Creatinine [Mass/Vol] 0.9 mg/dL Normal 0.5-1.3 [facility] Comment on above: Performed By: #### 1 9259089, 9202830, 4241415, 561808018, 98367991, 9985672, 2325305, 62067890 ####[facility] [address] [place] [address] Globulin (S) [Mass/Vol] 2.8 g/dL Normal 1.4-4.0 F [facility] Comment on above: Performed By: #### 1 7747067, 7898673, 5507680, 885949863, 04036012, 6562752, 2594369, 83974262 ####[facility] [address] [place] [address] Glucose [Mass/Vol] 105 mg/dL Normal 55-199 [facility] Comment on above: Result Comment: If t his glucose result represents a fasting glucose, interpretation should refer to the following reference range: 55-99 mg/dL Performed By: #### 1 9585399, 5244513, 5432448, 214695292, 55824821, 2639736, 8912942, 53520934 ####[facility] [address] [place] [address] Potassium [Moles/Vol] 4.2 mmol/L Normal 3.5-5.3 [facility] Comment on above: Performed By: #### 1 3113346, 0273544, 5960552, 724118938, 31060194, 2710582, 1663901, 20121472 ####[facility] [address] [place] [address] Protein [Mass/Vol] 7.5 g/dL Normal 6.0-7.8 [facility] Comment on above: Performed By: #### 1 8559558, 1626448, 5548908, 160724144, 40939449, 8806958, 9041371, 67791551 ####[facility] [address] [place] [address] Sodium [Moles/Vol] 144 mmol/L Normal 135-145 [facility] Comment on above: Performed By: #### 1 8245683, 7974543, 1674186, 003694175, 50247899, 5082539, 6656598, 15295980 ####[facility] [address] [place] [address] Urea nitrogen [Mass/Vol] 20 mg/dL Normal 5-21 [facility] Comment on above: Performed By: #### 1 2783538, 0044102, 5894909, 801242750, 99262511, 3025439, 6702030, 01954186 ####[facility] [address] [place] [address] Urea nitrogen/Creatinine [Mass ratio] 22 No Units High 09-07 [facility] Comment on above: Performed By: #### 1 3277980, 5725496, 1016906, 312649578, 27795506, 8107391, 3655657, 42094632 ####[facility] [address] [place] [address] Consent for Treatmenton Consent for Treatment [id number] 0CD:127 Normal [facility] YphC1idb 08-21-2023 HbA1c (Bld) [Mass fraction] 5.2 % Normal <=5.9 [facility] Comment on above: Performed By: #### 1 3270952, 4122147, 6471493, 183274820, 45500349, 4011617, 3045935, 46696114 ####[facility] [address] [place] [address] Lipid Panelon 08-21-2023 Cholesterol [Mass/Vol] 138 mg/dL Normal 120-200 [facility] Comment on above: Performed By: #### 1 1474373, 4680261, 4641122, 832715671, 05334614, 7991907, 2008157, 36144274 ####[facility] [address] [place] [address] Cholesterol in HDL [Mass/Vol] 39 mg/dL Invalid Interpretation Code [facility] Comment on above: Result Comment: HDL > or equal to 60 mg/dL: Low cardiovascular risk HDL < 40 mg/dL : High cardiovascular risk Performed By: #### 1 0068432, 2342853, 8176120, 002030710, 86937867, 9835514, 6834577, 91934198 ####[facility] [address] [place] [address] Cholesterol in LDL [Mass/Vol] 69 mg/dL Normal <=129 [facility] Comment on above: Performed By: #### 1 9238744, 9881049, 6643959, 182175119, 49105946, 5984267, 7107017, 96916706 ####[facility] [address] [place] [address] Cholesterol in VLDL [Mass/Vol] 19 mg/dL Normal 7-40 [facility] Comment on above: Performed By: #### 1 0428768, 0370525, 8205802, 673224086, 12211901, 2521255, 4098203, 22361850 ####[facility] [address] [place] [address] Triglyceride [Mass/Vol] 97 mg/dL Normal <=149 [facility] Comment on above: Performed By: #### 1 7818037, 3348502, 1558622, 220752266, 73413790, 9335411, 1294483, 74763260 ####[facility] [address] [place] [address] PSA Screen, Totalon 08-21-20 23 Prostate specific Ag [Mass/Vol] 5.4 ng/mL High 0.1-3.5 [facility] Comment on above: Result Comment: The concentration of PSA determined by different manufacturers can vary due to differences in assay methods and reagent specificity. Values obtained from different assay methods cannot be used interchangeably. The methodology used for this result was chemiluminescence using [employer] Access Hybritech PSA reagent. Performed By: #### 1 9144651, 8225987, 5601658, 317800255, 31528595, 1741984, 0873429, 31763997 ####[facility] [address] [place] [address] Physician Orderon 08-21-2023 Physician Order [id number]#[id number] CD:127 Normal [facility] TSH With T4fr Reflexon 08-21 TSH Qn 1.19 m[IU]/L Normal 0.34-5.60 [facility] Comment on above: Performed By: #### 1 6849281, 0693883, 9971544, 179170262, 35423994, 3944682, 4358761, 64958032 ####[facility] [address] [place] [address] eGFRon 08-21-2023 GFR/1.73 sq M.predicted among non-blacks MDRD (S/P/Bld) [Vol rate/Area] 100 mL/min/1.73 m2 Normal >=59 [facility] Comment on above: Order Comment: Order added by Discern Expert. Result Comment: Sales Service Rep richard kidney disease could be indicated at eGFR's of less than 60 mL/min/1.73m2. Kidney failure is indicated at less than 15 mL/min/1.73m2. Performed By: #### 1 7439851, 7891859, 7218859, 105779096, 11415820, 7030774, 5613018, 15341728 ####[facility] [address] [place] [address] Lab Miscellaneous-LCon 08-15 Lab Miscellaneous COMMENT Invalid Interpretation Code [facility] Comment on above: Result Comment: Test Ordered: 010190 G6PD,Qn,Bld and Hgb Hemoglobin 15.9 g/dL CB [...] weeks following a hemolytic event. Performed at: [facility] [id number] PhD Jefferson Jauregui Performed By: #### 1 6830357, 6675598, 6326138, 24274680, 74020618, 9814271, 4403369, 1641100 #### [facility] [address] [place] [address] Consent for Treatmenton 07-21 Consent for Treatment [id number] [id number]#1.0 0CD:127 Normal [facility] Lab Miscellaneous-LCon 08-10 Test Code 352413 Invalid Interpretation Code [facility] Comment on above: Performed By: #### 1 2524602, 1934433, 1130271, 34806960, 79989187, 0003727, 9522407, 7539069 #### [facility] [address] [place] [address] Test Name G6PD Invalid Interpretation Code [facility] Comment on above: Performed By: #### 1 5996543, 8978559, 9785058, 46776130, 83274463, 0989270, 2618036, 3926759 #### [facility] [address] [place] [address] Physician Orderon 08-10-2023 Physician Order [id number] CD:127 Normal [facility] Reference Laboratory Testing Ordered By: Perla Walton on 08-10-2023 Test Code 494929 Invalid Interpretation Code [facility] SendOutsSS Test Name G6PD Invalid Interpretation Code [facility] XR Knee - right 4 Viewson Body surface area Derived from formula 2 m2 [facility] Xrays of the right knee demonstrating no acute abnormalities, well preserved articulations. [facility] X-rays, 4 views of t he right [...] patellofemoral compartment demonstrates no evidence of osteoarthrosis. [facility] XR Knee - right 4 Viewson Radiology Study observation (narrative) [facility] CHEMISTRYOrdered By: SYSTEM SYSTEM on 03-17-2022 [...] mL/min/1.73 m2 Normal >=59mL/min/ 1.73 m2 [facility] Chem S GFR/1.73 sq M.predicted among non-blacks MDRD (S/P/Bld) [Vol rate/Area] mL/min/1.73 m2 Normal >=59mL/min/ 1.73 m2 [facility] Chem S Globulin (S) [Mass/Vol] 2.9 g/dL [...] [Mass fraction] 5.3 % Normal <=5.9% [facility] ChemAutoSS HEMATOLOGYOrdered By: SYSTEM SYSTEM on 03-17-2022 [...] E9/L Normal 4.0 - 11.0 E9/L [facility] HemeAutoSS POCT OCCULT BLOOD STOOLon Hemoglobin.gastrointesti nal Ql (Stl) Negative [facility] Interpretation and review of laboratory results Normal [facility] POCT OCCULT BLOOD STOOLon Hemoglobin.gastrointesti nal Ql (St) Negative [facility] Interpretation and review of laboratory results Normal [facility] Vital Signs Date Time Vital Sign Value Performing Clinician Facility 03-17-2024 12:54-0400 Blood Pressure Location Nadir GARCÍA [facility] 03-17-2024 12:54-0400 Body temperature 98.6 [degF] Nadir GARCÍA [facility] 03-17-2024 12:54-0400 Diastolic blood pressure 78 mm[Hg] Nadir GARCÍA [facility] 03-17-2024 12:54-0400 Heart rate 98 /min Nadir GARCÍA [facility] 03-17-2024 12:54-0400 Systolic blood pressure 118 mm[Hg] Nadir GARCÍA [facility] 03-12-2024 11:34-0400 Body height 175.3 cm Delphine Christiandarrenirak 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 Work Phone: [facility] 03-12-2024 11:34-0400 Body mass index (BMI) [Ratio] 28.97 kg/m2 Delphine Garciaubachik 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 Work Phone: [facility] 03-12-2024 11:34-0400 Body temperature 98.1 [degF] Delphine Christianubachik 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 Work Phone: [facility] 03-12-2024 11:34-0400 Body weight 89 kg Delphine Trubachik 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 Work Phone: [facility] 03-12-2024 11:34-0400 Diastolic blood pressure 64 mm[Hg] 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 Work Phone: [facility] 03-12-2024 11:34-0400 Heart rate 73 /min Delphine Riverk 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 Work Phone: [facility] 03-12-2024 11:34-0400 Respiratory rate 18 /min 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 Work Phone: [facility] 03-12-2024 11:34-0400 SaO2% (BldA) [Mass fraction] 97 % 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 Work Phone: [facility] 03-12-2024 11:34-0400 Systolic blood pressure 104 mm[Hg] 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 Work Phone: [facility] 03-10-2024 13:31-0400 Body height 176.53 cm [facility] 03-10-2024 13:31-0400 Body mass index (BMI) [Ratio] 27.6 kg/m2 [facility] 03-10-2024 13:31-0400 Body temperature 97.1 [degF] [facility] 03-10-2024 13:31-0400 Body weight 86.18 kg [facility] 03-10-2024 13:31-0400 Diastolic blood pressure 76 mm[Hg] [facility] 03-10-2024 13:31-0400 Heart rate 76 /min [facility] 03-10-2024 13:31-0400 Systolic blood pressure 112 mm[Hg] [facility] 02-11-2024 13:04-0400 Body height 175.3 cm 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 Work Phone: [facility] 02-11-2024 13:04-0400 Body mass index (BMI) [Ratio] 28.12 kg/m2 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 Work Phone: [facility] 02-11-2024 13:04-0400 Body temperature 98.2 [degF] 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 Work Phone: [facility] 02-11-2024 13:04-0400 Body weight 86.36 kg 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 Work Phone: [facility] 02-11-2024 13:04-0400 Diastolic blood pressure 70 mm[Hg] 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 Work Phone: [facility] 02-11-2024 13:04-0400 Heart rate 79 /min 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 Work Phone: [facility] 02-11-2024 13:04-0400 Respiratory rate 18 /min Delphine Riverk 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 Work Phone: [facility] 02-11-2024 13:04-0400 SaO2% (BldA) [Mass fraction] 97 % Delphinerom Berry 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 Work Phone: [facility] 02-11-2024 13:04-0400 Systolic blood pressure 124 mm[Hg] 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 Work Phone: [facility] 01-29-2024 14:25-0400 Hourly Rounding [facility] 01-29-2024 14:25-0400 Promise to Return [facility] 01-29-2024 14:00-0400 Blood Pressure Location [facility] 01-29-2024 14:00-0400 Diastolic blood pressure 74 mm[Hg] [facility] 01-29-2024 14:00-0400 Heart rate 56 /min [facility] 01-29-2024 14:00-0400 Mean blood pressure 93 mm[Hg] [facility] 01-29-2024 14:00-0400 Respiratory rate 18 /min [facility] 01-29-2024 14:00-0400 Systolic blood pressure 130 mm[Hg] [facility] 01-29-2024 13:45-0400 Hourly Rounding [facility] 01-29-2024 13:45-0400 [facility] 01-29-2024 12:15-0400 Hourly Rounding [facility] 01-29-2024 12:15-0400 Promise to Return [facility] 01-29-2024 11:47-0400 Heart rate 66 /min [facility] 01-29-2024 11:47-0400 SaO2% (BldA) [Mass fraction] 95 % [facility] 01-29-2024 11:47-0400 Diastolic blood pressure 77 mm[Hg] [facility] 01-29-2024 11:47-0400 Mean blood pressure 95 mm[Hg] [facility] 01-29-2024 11:47-0400 Systolic blood pressure 131 mm[Hg] [facility] 01-29-2024 11:46-0400 Body temperature 97.7 [degF] [facility] 01-29-2024 08:37-0400 SaO2% (BldA) [Mass fraction] 96 % [facility] 01-29-2024 07:29-0400 Heart rate 52 /min [facility] 01-29-2024 07:29-0400 SaO2% (BldA) [Mass fraction] 96 % [facility] 01-29-2024 07:28-0400 Body temperature 98.06 [degF] [facility] 01-29-2024 07:28-0400 Diastolic blood pressure 79 mm[Hg] [facility] 01-[facility] 07:28-0400 Mean blood pressure 97 mm[Hg] [facility] 01-29-[facility]24 07:28-0400 Systolic blood pressure 135 mm[Hg] [facility] 01-28-2024 20:14-0400 Mean blood pressure 92 mm[Hg] [facility] 01-28-2024 19:15-0400 Respiratory rate 18 /min [facility] 01-28-2024 02:10-0400 [facility] 01-28-2024 02:10-0400 Mean blood pressure 90 mm[Hg] [facility] 01-28-2024 02:10-0400 Respiratory rate 18 /min [facility] 01-26-2024 04:00-0500 Mean blood pressure 74 mm[Hg] [facility] 01-26-2024 00:11-0500 Heart rate 85 /min [facility] 01-25-2024 21:48-0500 [facility] 01-25-2024 21:48-0500 Heart rate 84 /min [facility] 01-25-2024 15:43-0500 Respiratory rate 17 /min [facility] 01-25-2024 13:54-0500 Heart rate 88 /min [facility] 01-18-2024 11:24-0500 Blood Pressure Location Nadir GARCÍA [facility] 01-18-2024 11:24-0500 Diastolic blood pressure 70 mm[Hg] Nadir GARCÍA [facility] 01-18-2024 11:24-0500 Heart rate 68 /min Nadir GARCÍA [facility] 01-18-2024 11:24-0500 Respiratory rate 16 /min Nadir GARCÍA [facility] 01-18-2024 11:24-0500 Systolic blood pressure 116 mm[Hg] Nadir GARCÍA [facility] 01-10-2024 11:00-0500 Diastolic blood pressure 70 mm[Hg] Amauri Tran [facility] 01-10-2024 11:00-0500 Heart rate 65 /min Amauri Tran [facility] 01-10-2024 11:00-0500 Mean blood pressure 81 mm[Hg] Amauri Marc [facility] 01-10-2024 11:00-0500 SaO2% (BldA) [Mass fraction] 96 % Amauri Tran [facility] 01-10-2024 11:00-0500 Systolic blood pressure 102 mm[Hg] Amauri Tran [facility] 01-10-2024 10:30-0500 Diastolic blood pressure 71 mm[Hg] Amauri Marc [facility] 01-10-2024 10:30-0500 Heart rate 63 /min Amauri Marc [facility] 01-10-2024 10:30-0500 Mean blood pressure 83 mm[Hg] Amauri Marc [facility] 01-10-2024 10:30-0500 Respiratory rate 17 /min Amauri Tran [facility] 01-10-2024 10:30-0500 SaO2% (BldA) [Mass fraction] 95 % Amauri Tran [facility] 01-10-2024 10:30-0500 Systolic blood pressure 108 mm[Hg] Amauri Tran [facility] 01-10-2024 09:58-0500 Body temperature 98.96 [degF] Amauri Tran [facility] 01-10-2024 09:58-0500 Diastolic blood pressure 84 mm[Hg] Amauri Tran [facility] 01-10-2024 09:58-0500 Heart rate 67 /min Amauri Tran [facility] 01-10-2024 09:58-0500 SaO2% (BldA) [Mass fraction] 98 % Amauri Tran [facility] 01-10-2024 09:58-0500 Systolic blood pressure 130 mm[Hg] Amauri Tran [facility] 01-07-2024 11:00-0500 Blood Pressure Location Rod Nixrowena [facility] 01-07-2024 11:00-0500 Body temperature 98.24 [degF] Rod Brown [facility] 01-07-2024 11:00-0500 Diastolic blood pressure 78 mm[Hg] Rod Paster [facility] 01-07-2024 11:00-0500 Heart rate 99 /min Rod Brown [facility] 01-07-2024 11:00-0500 Hourly Rounding Rod Paster [facility] 01-07-2024 11:00-0500 Mean blood pressure 93 mm[Hg] Rod Nixr [facility] 01-07-2024 11:00-0500 Respiratory rate 18 /min Rod Paster [facility] 01-07-2024 11:00-0500 SaO2% (BldA) [Mass fraction] 98 % Rod Paster [facility] 01-07-2024 11:00-0500 Systolic blood pressure 122 mm[Hg] Rod Paster [facility] 01-07-2024 10:27-0500 Hourly Rounding Rod Paster [facility] 01-07-2024 10:27-0500 Promise to Return Rod Paster [facility] 01-07-2024 09:04-0500 Hourly Rounding Rod Paster [facility] 01-07-2024 09:04-0500 Promise to Return Rod Paster [facility] 01-07-2024 08:24-0500 Promise to Return Rod Paster [facility] 01-07-2024 08:00-0500 Diastolic blood pressure 85 mm[Hg] Rod Paster [facility] 01-07-2024 08:00-0500 Heart rate 65 /min Rod Paster [facility] 01-07-2024 08:00-0500 Mean blood pressure 101 mm[Hg] Rod Paster [facility] 01-07-2024 08:00-0500 SaO2% (BldA) [Mass fraction] 99 % Rod Paster [facility] 01-07-2024 08:00-0500 Systolic blood pressure 133 mm[Hg] Rod Paster [facility] 01-07-2024 00:20-0500 Body temperature 97.88 [degF] Rod Paster [facility] 01-07-2024 00:20-0500 Diastolic blood pressure 66 mm[Hg] Rod Paster [facility] 01-07-2024 00:20-0500 Heart rate 61 /min Rod Paster [facility] 01-07-2024 00:20-0500 SaO2% (BldA) [Mass fraction] 98 % Rod Paster [facility] 01-07-2024 00:20-0500 Systolic blood pressure 118 mm[Hg] Rod Paster [facility] 01-06-2024 19:55-0500 Mean blood pressure 86 mm[Hg] Rod Paster [facility] 01-06-2024 16:48-0500 Respiratory rate 18 /min Rod Paster [facility] 01-06-2024 16:47-0500 Mean blood pressure 89 mm[Hg] Rod Paster [facility] 01-06-2024 11:47-0500 Mean blood pressure 86 mm[Hg] Rod Paster [facility] 01-05-2024 04:00-0500 Blood Pressure Location Rod Paster [facility] 01-05-2024 04:00-0500 Mean blood pressure 81 mm[Hg] Rod Paster [facility] 01-05-2024 04:00-0500 Respiratory rate 16 /min Rod Paster [facility] 01-04-2024 18:40-0500 Heart rate 74 /min Rod Paster [facility] 01-04-2024 18:13-0500 Respiratory rate 18 /min Rod Paster [facility] 01-04-2024 15:57-0500 Heart rate 91 /min Rod Paster [facility] 12-10-2023 11:56-0500 Blood Pressure Location Nadir GARCÍA [facility] 12-10-2023 11:56-0500 Diastolic blood pressure 79 mm[Hg] Nadir GARCÍA [facility] 12-10-2023 11:56-0500 Heart rate 62 /min Nadir GARCÍA [facility] 12-10-2023 11:56-0500 Respiratory rate 16 /min Nadir GARCÍA [facility] 12-10-2023 11:56-0500 Systolic blood pressure 125 mm[Hg] Nadir GARCÍA [facility] 10-26-2023 10:55-0500 Diastolic blood pressure 81 mm[Hg] Ambrocio Sarmini [facility] 10-26-2023 10:55-0500 Heart rate 58 /min Ambrocio Sarmini [facility] 10-26-2023 10:55-0500 Respiratory rate 16 /min Ambrocio Sarmini [facility] 10-26-2023 10:55-0500 SaO2% (BldA) [Mass fraction] 94 % Ambrocio Sarmini [facility] 10-26-2023 10:55-0500 Systolic blood pressure 119 mm[Hg] Ambrocio Sarmini [facility] 10-26-2023 10:40-0500 Diastolic blood pressure 75 mm[Hg] Ambrocio Sarmini [facility] 10-26-2023 10:40-0500 Heart rate 58 /min Ambrocio Sarmini [facility] 10-26-2023 10:40-0500 Respiratory rate 16 /min Ambrocio Sarmini [facility] 10-26-2023 10:40-0500 SaO2% (BldA) [Mass fraction] 94 % Ambrocio Sarmini [facility] 10-26-2023 10:40-0500 Systolic blood pressure 108 mm[Hg] Ambrocio Sarmini [facility] 10-26-2023 10:35-0500 Diastolic blood pressure 74 mm[Hg] Ambrocio Sarmini [facility] 10-26-2023 10:35-0500 Heart rate 67 /min Ambrocio Sarmini [facility] 10-26-2023 10:35-0500 Respiratory rate 16 /min Ambrocio Sarmini [facility] 10-26-2023 10:35-0500 SaO2% (BldA) [Mass fraction] 94 % Ambrocio Sarmini [facility] 10-26-2023 10:35-0500 Systolic blood pressure 109 mm[Hg] Ambrocio Sarmini [facility] 10-26-2023 10:30-0500 Body temperature 97.16 [degF] Ambrocio Sarmini [facility] 10-26-2023 10:09-0500 Respiratory rate 12 /min Ambrocio Sarmini [facility] 10-26-2023 09:28-0500 Blood Pressure Location Cristóbal Lowe [facility] 10-26-2023 09:28-0500 Body temperature 98.06 [degF] Cristóbal Lowe [facility] 08-21-2023 14:05-0400 Body height 175.3 cm Delphine Garciaubairak 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 Work Phone: [facility] 08-21-2023 14:05-0400 Body mass index (BMI) [Ratio] 25.78 kg/m2 Delphine Garciaubachik 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 Work Phone: [facility] [employer] [facility] 08-21-2023 14:05-0400 Body temperature 98.29 [degF] Delphine Garciaubachik 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 Work Phone: [facility] [employer] [facility] 08-21-2023 14:05-0400 Body weight 79.2 kg Delphine Garciaubachik 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 Work Phone: [employer] [facility] 08-21-2023 14:05-0400 Diastolic blood pressure 76 mm[Hg] Delphine Garciaubachik 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 Work Phone: [facility] [employer] [facility] 08-21-2023 14:05-0400 Heart rate 76 /min Delphine Garciaubachik 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 Work Phone: [employer] [facility] 08-21-2023 14:05-0400 Respiratory rate 18 /min Delphine Trubachik 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 Work Phone: [employer] [facility] 08-21-2023 14:05-0400 SaO2% (BldA) [Mass fraction] 96 % Delphine Garciaubachik 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 Work Phone: [employer] [facility] 08-21-2023 14:05-0400 Systolic blood pressure 118 mm[Hg] Delphine Trubachik 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 Work Phone: [facility] 08-15-2022 08:43-0400 Body height 175.3 cm Earle Henderson MD Work Phone: [facility] 08-15-2022 08:43-0400 Body mass index (BMI) [Ratio] 27.31 kg/m2 Earle Henderson MD Work Phone: [facility] 08-15-2022 08:43-0400 Body weight 83.9 kg Earle Henderson MD Work Phone: [facility] 08-15-2022 08:43-0400 Respiratory rate 18 /min Earle Henderson MD Work Phone: [facility] 06-23-2022 07:55-0400 Body height 175.3 cm Earle Henderson MD Work Phone: [facility] 06-23-2022 07:55-0400 Body mass index (BMI) [Ratio] 27.32 kg/m2 Earle Henderson MD Work Phone: [facility] 06-23-2022 07:55-0400 Body weight 83.92 kg Earle Henderson MD Work Phone: [facility] 03-31-2022 13:16-0400 Body height 176.5 cm 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 Work Phone: [facility] 03-31-2022 13:16-0400 Body mass index (BMI) [Ratio] 27.31 kg/m2 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 Work Phone: [facility] 03-31-2022 13:16-0400 Body temperature 98.1 [degF] 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 Work Phone: [facility] 03-31-2022 13:16-0400 Body weight 85.09 kg 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 Work Phone: [facility] 03-31-2022 13:16-0400 Diastolic blood pressure 72 mm[Hg] Delphine Trubachik 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 Work Phone: [facility] [employer] [facility] 03-31-2022 13:16-0400 Heart rate 82 /min Delphine Garciaubachik 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 Work Phone: [facility] 03-31-2022 13:16-0400 Respiratory rate 18 /min Delphine Garciaubachik 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 Work Phone: [facility] 03-31-2022 13:16-0400 SaO2% (BldA) [Mass fraction] 96 % Delphine Garciaubachik 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 Work Phone: [facility] 03-31-2022 13:16-0400 Systolic blood pressure 120 mm[Hg] Delphine Garciaubachik 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 Work Phone: [facility] 04-12-2021 07:10-0400 Body height 175.3 cm Delphine Garciaubairak 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 Work Phone: [facility] 04-12-2021 07:10-0400 Body mass index (BMI) [Ratio] 28 kg/m2 Delphine Garciaubachik 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 Work Phone: [facility] 04-12-2021 07:10-0400 Body temperature 97.81 [degF] Delphine Riverk 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 Work Phone: [facility] 04-12-2021 07:10-0400 Body weight 86 kg Delphine Garciaubachik 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 Work Phone: [facility] 04-12-2021 07:10-0400 Diastolic blood pressure 80 mm[Hg] Delphine Trubachik 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 Work Phone: [facility] 04-12-2021 07:10-0400 Heart rate 59 /min Delphine Garciaubachik 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 Work Phone: [facility] 04-12-2021 07:10-0400 Respiratory rate 18 /min Delphine Garciaubachik 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 Work Phone: [facility] 04-12-2021 07:10-0400 SaO2% (BldA) [Mass fraction] 97 % [facility] Kristi 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 Work Phone: [facility] 04-12-2021 07:10-0400 Systolic blood pressure 120 mm[Hg] [facility] Kristi 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 Work Phone: [facility] 2021 08:04-0500 BMI (Body Mass Index) 25.64 kg/m2 [facility] 2021 08:04-0500 Body Temperature 98.1 [degF] [facility] 2021 08:04-0500 Body weight 79.89 kg [facility] 2021 08:04-0500 BP Diastolic 72 mm[Hg] [facility] 2021 08:04-0500 BP Systolic 122 mm[Hg] [facility] 2021 08:04-0500 Height 176.5 cm [facility] 2021 08:04-0500 Pulse (Heart Rate) 56 /min [facility] 2021 08:04-0500 Pulse Oximetry 97 % [facility] 2021 08:04-0500 Respiratory Rate 18 /min [facility] 01-30-2020 11:03-0400 BMI (Body Mass Index) 25.82 kg/m2 [facility] 01-30-2020 11:03-0400 Body Temperature 98.2 [degF] [facility] 01-30-2020 11:03-0400 Body weight 80.47 kg [facility] 01-30-2020 11:03-0400 BP Diastolic 72 mm[Hg] [facility] 01-30-2020 11:03-0400 BP Systolic 116 mm[Hg] [facility] 01-30-2020 11:03-0400 Height 176.5 cm [facility] 01-30-2020 11:03-0400 Pulse (Heart Rate) 64 /min [facility] 01-30-2020 11:03-0400 Pulse Oximetry 98 % [facility] 01-30-2020 11:03-0400 Respiratory Rate 18 /min [facility] 01-23-2020 14:00-0500 BMI (Body Mass Index) 26.49 kg/m2 [facility] 01-23-2020 14:00-0500 Body Temperature 98.4 [degF] [facility] 01-23-2020 14:00-0500 Body weight 82.56 kg [facility] 01-23-2020 14:00-0500 BP Diastolic 74 mm[Hg] [facility] 01-23-2020 14:00-0500 BP Systolic 120 mm[Hg] [facility] 01-23-2020 14:00-0500 Height 176.5 cm [facility] 01-23-2020 14:00-0500 Pulse (Heart Rate) 73 /min [facility] 01-23-2020 14:00-0500 Pulse Oximetry 98 % [facility] 01-23-2020 14:00-0500 Respiratory Rate 20 /min [facility] 12-26-2019 14:30-0500 BMI (Body Mass Index) 26.23 kg/m2 [facility] 12-26-2019 14:30-0500 Body Temperature 98.29 [degF] [facility] 12-26-2019 14:30-0500 Body weight 81.74 kg [facility] 12-26-2019 14:30-0500 BP Diastolic 66 mm[Hg] [facility] 12-26-2019 14:30-0500 BP Systolic 104 mm[Hg] [facility] 12-26-2019 14:30-0500 Height 176.5 cm [facility] 12-26-2019 14:30-0500 Pulse (Heart Rate) 71 /min [facility] 12-26-2019 14:30-0500 Pulse Oximetry 95 % [facility] 12-26-2019 14:30-0500 Respiratory Rate 20 /min [facility] 03-17-2019 14:05-0400 BMI (Body Mass Index) 25.68 kg/m2 [facility] 03-17-2019 14:05-0400 Body Temperature 98.8 [degF] [facility] 03-17-2019 14:05-0400 BP Diastolic 64 mm[Hg] [facility] 03-17-2019 14:05-0400 BP Systolic 106 mm[Hg] [facility] 03-17-2019 14:05-0400 Height 177.8 cm [facility] 03-17-2019 14:05-0400 Pulse (Heart Rate) 66 /min [facility] 03-17-2019 14:05-0400 Pulse Oximetry 98 % [facility] 03-17-2019 14:05-0400 Respiratory Rate 20 /min [facility] 03-17-2019 14:05-0400 Weight 81.19 kg [facility] 01-03-2019 15:04-0500 BMI (Body Mass Index) 24.25 kg/m2 [facility] 01-03-2019 15:04-0500 Body Temperature 97.81 [degF] [facility] 01-03-2019 15:04-0500 BP Diastolic 76 mm[Hg] [facility] 01-03-2019 15:04-0500 BP Systolic 120 mm[Hg] [facility] 01-03-2019 15:04-0500 Height 177.8 cm [facility] 02-15-2019 15:04-0500 Pulse (Heart Rate) 56 /min [facility] 01-03-2019 15:04-0500 Pulse Oximetry 98 % [facility] 01-03-2019 15:04-0500 Respiratory Rate 16 /min [facility] 01-03-2019 15:04-0500 Weight 76.66 kg [facility] Encounters Encounter Date Encounter Type Care Provider Facility Start: 04-30-2024 End: 04-30-2024 ambulatory PATRICK KLEIN Facility:[facility] Start: 04-30-2024 End: 04-30-2024 Patient encounter procedure PATRICK KLEIN [facility] Start: 03-17-2024 End: 03-17-2024 ambulatory Nadir GARCÍA Facility:[facility] Start: 03-17-2024 End: 03-17-2024 Patient encounter procedure Nadir GARCÍA [facility] Start: 03-12-2024 ambulatory [facility] Start: 03-12-2024 End: 03-12-2024 Office outpatient visit 25 minutes 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 Work Phone: [facility] Comment on above: Acute on chronic pro statitis (Primary Dx) Start: 03-10-2024 End: 03-10-2024 ambulatory [facility] Work Phone: Start: 03-10-2024 End: 03-10-2024 Patient encounter procedure [facility] Physician [facility] Work Phone: Start: 02-11-2024 ambulatory [facility] Start: 02-11-2024 End: 02-11-2024 Office outpatient visit 40 minutes [facility] 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 Work Phone: [facility] Comment on above: History of UTI (Prim gloria Dx); Acute on chronic prostatitis; Sepsis without acute organ dysfunction, due to unspecified organism; Chest pain, unspecified type; Chest tightness; Shortness of breath; Other eczema Start: 01-25-2024 End: 01-29-2024 Evaluation and management of inpatient Rod Brown Facility:[facility] Start: 01-25-2024 End: 01-29-2024 Evaluation and management of inpatient Louisa Soriano [facility] Start: 01-18-2024 End: 01-18-2024 ambulatory Nadir GARCÍA Facility:[facility] Start: 01-18-2024 End: 01-18-2024 Patient encounter procedure Nadir GARCÍA [facility] Start: 01-10-2024 End: 01-10-2024 Emergency department patient visit Amauri Tran [facility] Start: 01-04-2024 End: 01-07-2024 Evaluation and management of inpatient Marvel Patel Facility:[facility] Start: 01-04-2024 End: 01-07-2024 Evaluation and management of inpatient Rod Brown [facility] Start: 01-01-2024 End: 01-01-2024 ambulatory Nadir GARCÍA Facility:[facility] Start: 01-01-2024 End: 01-01-2024 Patient encounter procedure Nadir GARCÍA [facility] Start: 12-10-2023 End: 12-10-2023 ambulatory DELPHINE GARCIADARRENOLYA Facility:[facility] Start: 12-10-2023 End: 12-10-2023 Patient encounter procedure Nadir GARCÍA [facility] Start: 10-26-2023 End: 10-26-2023 ambulatory DELPHINE RIVERK Facility:[facility] Start: 10-26-2023 End: 10-26-2023 Patient encounter procedure Cristóbal Lowe [facility] Start: 10-01-2023 ambulatory DELPHINE TRUBACHIK Facilit y:[facility] [place] Start: 08-29-2023 ambulatory DELPHINE TRDARRENCHIK Facilit y:[facility] Start: 08-28-2023 End: 08-28-2023 ambulatory Jennifer Guan Facility[facility] Start: 08-23-2023 ambulatory DELPHINE TRFARZADK Facilit y:Maur[facility] Start: 08-21-2023 ambulatory SELF SELF Av[facility] Rene[facility] Start: 08-21-2023 End: 08-21-2023 Patient encounter status 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 Work Phone: [facility] Work Phone: Start: 08-21-2023 End: 08-21-2023 Periodic preventive med est patient 40-64yrs 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 Work Phone: [facility] Comment on above: Routine general medi quynh examination at a health care facility (Primary Dx); Elevated PSA; Urinary frequency; Encounter for screening colonoscopy Start: 08-21-2023 End: 08-21-2023 ambulatory DELPHINE RIVERK Facility:[facility] Start: 08-10-2023 End: 08-10-2023 ambulatory DELPHINE RIVERK Facility:[facility] Start: 08-10-2023 End: 08-10-2023 Patient encounter procedure DELPHINE BERRY [facility] Start: 08-15-2022 ambulatory SELF SELF [facility] Start: 08-15-2022 End: 08-15-2022 Office outpatient visit 25 minutes Earle Henderson MD Work Phone: [facility] Comment on above: Primary osteoarthrit is of right knee (Primary Dx); Subchondral insufficiency fracture of condyle of right femur, initial encounter; Osteochondral defect of femoral condyle Start: 07-14-2022 End: 07-14-2022 Patient encounter procedure EARLE HENDERSON [facility] Start: 06-23-2022 [facility] Start: 06-23-2022 End: 06-23-2022 Subsequent hospital visit by physician Earle Henderson MD Work Phone: [facility] Comment on above: Arrived Start: 06-23-2022 End: 06-23-2022 Office outpatient new 30 minutes Earle Henderson MD Work Phone: [facility] Comment on above: Right knee pain, uns pecified chronicity (Primary Dx); Acute medial meniscus tear, right, initial encounter Start: 03-31-2022 End: 03-31-2022 Patient encounter status 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 Work Phone: [facility] Start: 03-31-2022 End: 03-31-2022 Periodic preventive med est patient 40-64yrs 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 Work Phone: [facility] Comment on above: Routine general medi quynh examination at a health care facility (Primary Dx); Elevated PSA Start: 03-17-2022 End: 03-17-2022 Patient encounter procedure DELPHINE BERRY [facility] Start: 04-12-2021 End: 04-12-2021 Office outpatient visit 25 minutes 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 Work Phone: [facility] Comment on above: Environmental and se asonal allergies (Primary Dx) Start: 2021 End: 2021 Periodic preventive med est patient 40-64yrs Delphine Berry Work Phone: [employer] Comment on above: Routine general medi quynh examination at a health care facility (Primary Dx); Dizziness Start: 01-30-2020 End: 01-30-2020 Office outpatient visit 15 minutes Delphine Morton [employer] Work Phone: [employer] Comment on above: Right calf pain (Marva feliciano Dx); Localized swelling of right lower leg Start: 01-23-2020 End: 01-23-2020 Office outpatient visit 25 minutes Delphine Morton [employer] Work Phone: [employer] Comment on above: Right calf pain (Marva feliciano Dx); Localized swelling of right lower leg Start: 12-26-2019 End: 12-26-2019 Periodic preventive med est patient 40-64yrs Delphine Morton [employer] Work Phone: [employer] Comment on above: Routine general medi quynh examination at a health care facility (Primary Dx); Screening for colon cancer Start: 07-15-2019 End: 07-15-2019 Refill Delphine Morton [employer] Work Phone: [employer] Start: 05-15-2019 End: 05-15-2019 Patient encounter procedure Other Other [facility] Start: 05-06-2019 End: 05-06-2019 Patient encounter procedure Marj Demarcus [employer] [facility] Start: 05-02-2019 End: 05-02-2019 Patient encounter procedure Historical Provider [employer] [facility] Start: 05-01-2019 End: 05-01-2019 Patient encounter procedure Other Other [facility] Start: 04-22-2019 End: 04-22-2019 Patient encounter procedure Historical Provider [employer] Start: 04-08-2019 End: 04-08-2019 Patient encounter procedure Other Other [facility] Start: 03-21-2019 End: 03-21-2019 Telephone encounter Marj Demarcus [employer] [facility] Comment on above: Other Start: 03-20-2019 End: 03-20-2019 Telephone encounter Delphine Morton [employer] Work Phone: [employer] Comment on above: Results Start: 03-17-2019 End: 03-17-2019 Letter encounter Karla Mi [facility] Start: 03-17-2019 End: 03-17-2019 Patient encounter procedure Marj Tracy [facility] Start: 03-17-2019 End: 03-17-2019 Telephone encounter Karla Mi [facility] Comment on above: Other Start: 03-17-2019 End: 03-17-2019 Office outpatient visit 25 minutes Delphine Morton [employer] Work Phone: [facility] Comment on above: Acute pain of left k nee (Primary Dx) Start: 03-07-2019 End: 03-07-2019 Telephone encounter Delphine Morton [employer] Work Phone: [facility] Comment on above: Results Start: 02-01-2019 End: 02-01-2019 Patient encounter procedure Other Other [facility] Start: 01-30-2019 End: 01-30-2019 Patient encounter procedure Marj Tracy [facility] Start: 01-14-2019 End: 01-14-2019 Telephone encounter Delphine Morton [employer] Work Phone: [facility] Comment on above: Other Start: 01-06-2019 End: 01-06-2019 Patient encounter procedure Other Other [facility] Start: 01-03-2019 End: 01-03-2019 Periodic preventive med est patient 40-64yrs Delphine Morton [employer] Work Phone: [facility] Comment on above: Thrombocytopenia (Pr imary Dx); Routine general medical examination at a health care facility; Liver enzyme elevation; Erectile dysfunction, unspecified erectile dysfunction type; Colon cancer screening Start: 12-19-2018 End: 12-19-2018 Telephone encounter Harriet Jose [facility] Comment on above: Labs Only Start: 10-30-2018 End: 10-30-2018 Patient encounter procedure Marj Tracy [facility] Start: 10-01-2018 End: 10-01-2018 Patient encounter procedure Marj Tracy [facility] Procedures Date Procedure Procedure Detail Performing Clinician Start: 02-11-2024 Urnls dip stick/tabl et rgnt auto w/o microscopy Delphine A Trubachik 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 Work Phone: Start: 01-01-2024 Transrectal biopsy o f prostate using ultrasound guidance Nadir GARCÍA Start: 10-26-2023 Colonoscopy Cristóbal malone Start: 06-23-2022 Radiologic exam knee complete 4/more views Earle Henderson MD Work Phone: Start: 03-17-2022 Lipid 1996 panel - S brianna or Plasma Delphine Trubachik 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 Work Phone: Start: 12-26-2019 Blood occult peroxid ase actv qual feces 1 deter Delphine Zimmermanchihansa Work Phone: Start: 05-07-2019 Arthroscopy of knee [facility] Comment on above: Left knee Start: 05-02-2019 [...] Detail Author Start: 01-03-2029 Tetanus vaccination TETANUS [facility] Start: 03-17-2027 Fasting lipid profile LIPID SCREENIN G [facility] Start: 03-17-2027 Lipid panel LIPID SCREENING [facility] Start: 12-29-2024 ambulatory Ambulatory Facility:[facility] Start: 10-29-2024 Screening for malign ant neoplasm of colon COLORECTAL CANCER SCREENING DISCUSSION [facility] Start: 08-09-2024 Prostate specific antigen measurement PROSTATE CANCER SCREENING DISCUSSION [facility] Start: 03-31-2023 Prostate specific antigen measurement PROSTATE CANCER SCREENING DISCUSSION [facility] Start: 08-01-2022 COVID-19 VACCINE (3 - Booster for Fam series) COVID-19 VACCINE (3 - Booster for Fam series) [facility] Start: 07-20-2022 Influenza vaccination A [facility] Start: 2022 Prostate specific antigen measurement PROSTATE CANCER SCREENING DISCUSSION [facility] Start: 12-15-2021 Fasting lipid profile LIPID SCREENIN G [facility] Work Phone: Start: 12-26-2020 Colonoscopy COLORECTAL CAN CER SCREENING DISCUSSION [facility] Start: 12-26-2020 Screening for malign ant neoplasm of colon COLORECTAL CANCER SCREENING DISCUSSION [facility] Start: 11-14-2020 Prostate specific antigen measurement PROSTATE CANCER SCREENING DISCUSSION [facility] Start: 02-06-2020 End: 02-06-2020 Office Visit 02/06/2020 Office Visit Family Medicine Delphine Berry, 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 [address] [place] [address] [facility] Start: 01-30-2020 End: 01-30-2020 Office Visit 01/30/2020 Office Visit Family Medicine Delphine Berry, 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 [address] [place] [address] [facility] Start: 01-23-2020 End: 01-22-2021 MRI of knee MRI KNEE RIGHT WITHOUT CONTRAST Imaging Routine Right calf pain Localized swelling of right lower leg Expected: 01/23/2020, Expires: 01/22/2021 [facility] Comment on above: Expected: 01/23/2020 , Expires: 01/22/2021 Start: 01-23-2020 End: 01-22-2021 US DUPLEX EXTREMITY DVT RIGHT US DUPLEX EXTREMITY DVT RIGHT Imaging Routine Right calf pain Localized swelling of right lower leg Expected: 01/23/2020, Expires: 01/22/2021 [facility] Comment on above: Expected: 01/23/2020 , Expires: 01/22/2021 Start: 01-03-2020 Colonoscopy COLON CANCER S CREENING DISCUSSION [facility] Start: 01-03-2020 Protein mass conc COLON CANCER SCREENING DISCUSSION [facility] Start: 07-20-2019 Influenza vaccination INFLUENZA VACC INE (#1) [facility] Start: 03-31-2019 End: 03-31-2019 Office Visit 03/31/2019 Office Visit Orthopaedics Rene Barboza, DO [address] [place] [address] [facility] Start: 03-17-2019 End: 03-17-2020 Radiologic examination of knee XR KNEE LEFT 4+ VIEWS Imaging Routine Acute pain of left knee Expected: 03/17/2019, Expires: 03/17/2020 [facility] Comment on above: Expected: 03/17/2019 , Expires: 03/17/2020 Start: 02-28-2019 Zoster vaccine hzv l nataly for subcutaneous use ZOSTER (SHINGLES) VACCINE (2 of 2) [facility] Start: 01-03-2019 End: 01-03-2019 Ambulatory 01/03/2019 Office Visit Family Medicine Delphine Berry, 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 [address] [place] [address] [facility] Start: 07-20-2018 Influenza vaccination INFLUENZA VACC INE (#1) [facility] Work Phone: Start: 2017 Prostate specific antigen measurement PROSTATE CANCER SCREENING DISCUSSION [facility] Work Phone: Start: 2017 Protein mass conc COLON CANCER SCREENING DISCUSSION [facility] Work Phone: Start: 1986 Third diphtheria, tetanus and acellular pertussis (DTaP) vaccination TDAP (ADULT) [facility] Work Phone: Start: 1985 Tetanus vaccination TETANUS [facility] Work Phone: Start: 01-22-1980 HIV screening HIV SCREENING DISCUSSI ON [facility] Work Phone: Start: 1967 Hepatitis B vaccination HEP B VACCINE (1 of 3 - 3-dose series) [employer] CBC, EDIF, PLATELET [facility] Work Phone: Comment on above: Ordered: 12/19/2018 Ordered: 01/03/2019 Cobalamin (Vitamin B 12) mass conc VITAMIN B12 Lab Routine Thrombocytopenia Ordered: 01/03/2019 [facility] Comment on above: Ordered: 01/03/2019 Comprehensive metabo lic 2000 panel COMPREHENSIVE METABOLIC PANEL Routine Routine general medical examination at a health care facility Ordered: 12/19/2018 [facility] Work Phone: Comment on above: Ordered: 12/19/2018 Ecg routine ecg w/le ast 12 lds w/i&r WI ELECTROCARDIOGRAM, COMPLETE WI - OFFICE PERFORMED Routine Chest pain, unspecified type Chest tightness Shortness of breath Ordered: 02/11/2024 [employer] Comment on above: Ordered: 02/11/2024 FREE TESTOSTERONE FREE TESTOSTER ONE Routine Routine general medical examination at a health care facility Ordered: 12/19/2018 [facility] Work Phone: Comment on above: Ordered: 12/19/2018 Gamma glutamyl transferase enzyme act/vol GGT Lab Routine Liver enzyme elevation Ordered: 01/03/2019 [facility] Comment on above: Ordered: 01/03/2019 HEPATIC FUNCTION PANEL HEPATIC F UNCTION PANEL Lab Routine Liver enzyme elevation Ordered: 01/03/2019 [facility] [employer] Comment on above: Ordered: 01/03/2019 HEPATITIS A, B, C HEPATITIS A, B , C Lab Routine Liver enzyme elevation Ordered: 01/03/2019 [facility] Comment on above: Ordered: 01/03/2019 LIPID PANEL W CALCULATED LDL LIPID PANEL W CALCULATED LDL Routine Routine general medical examination at a health care facility Ordered: 12/19/2018 [facility] Work Phone: Comment on above: Ordered: 12/19/2018 MR Knee - right WO contrast MRI KNEE RIGHT WITHOUT CONTRAST Imaging Routine Right knee pain, unspecified chronicity Acute medial meniscus tear, right, initial encounter Ordered: 06/28/2022 [facility] Comment on above: Ordered: 06/28/2022 PSA - DIAGNOSTIC/RYDER OR MARKER PSA - DIAGNOSTIC/TUMOR MARKER Lab Routine Elevated PSA Ordered: 03/31/2022 [facility] Comment on above: Ordered: 03/31/2022 Testosterone mass conc TESTOSTER ONE Routine Routine general medical examination at a health care facility Ordered: 12/19/2018 [facility] Work Phone: Comment on above: Ordered: 12/19/2018 TSH W/FT4 REFLEX TSH W/FT4 REFLE X Routine Routine general medical examination at a health care facility Ordered: 12/19/2018 [facility] Work Phone: Comment on above: Ordered: 12/19/2018 XR Knee - right 4 Views XR KNEE RIGHT 4+ VIEWS Imaging Routine Right knee pain, unspecified chronicity 06/23/2022 8:12 AM EDT [facility] Work Phone: [facility] Immunizations Immunization Date Immunization Notes Care Provider Fa cility 12-14-2022 zoster vaccine recombinant Ambrocio Sarmini [facility] 09-10-2022 influenza virus vaccine, unspecified formulation Ambrocio Sarmini [facility] 09-10-2022 zoster vaccine recombinant Ambrocio Sarmini [facility] 11-18-2021 SARS-CoV-2 (COVID-19 ) mRNA BNT-162b2 vax Ambrocio Sarmini [facility] 09-03-2021 influenza virus vaccine, unspecified formulation Ambrocio Sarmini [facility] 03-02-2021 SARS-CoV-2 (COVID-19 ) mRNA BNT-162b2 vax Ambrocio Sarmini [facility] Comment on above: Result Comment: 2022: [id number] 02-09-2021 SARS-CoV-2 (COVID-19 ) mRNA BNT-162b2 vax Ambrocio Marymini [facility] Comment on above: Result Comment: 2022: TPV50 2021 influenza virus vaccine, unspecified formulation Delphine [employer] 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 Work Phone: [employer] 01-03-2019 influenza virus vaccine, unspecified formulation Delphine [employer] 01-03-2019 [facility] vaccine, unspecified [facility] NEGATED: Highlighted row has not occurred!08-27-2023 influenza virus vaccine, unspecified formulation Ambrocio Marymini [facility] Payers Date Payer Category Payer Unknown ANTHEM ANTHEM HM O PPO POS xxxxxxxxxxxx 2017-Present [id number] 2017 Unknown ANTHEM ANTHEM HM O PPO POS [id number] 2017-Present [id number] 2017 Unknown ANTHEM ANTHEM HM O PPO POS [id number] 2017-Present [address] [place] [address] [id number] 2017 Unknown [id number] 1967 Unknown [id number] 2.16.840.1.290908.3.579.2.983 1967 Unknown [id number] 2.16.840.1.360606.3.579.2.983 1967 Unknown [id number] 2.16.840.1.726222.3.579.2.983 1967 Unknown [id number] 2.16.840.1.937377.3.579.2. 1967 Unknown [id number] 2.16.840.1.094157.3.579.2 1967 Unknown [id number] 2.16.840.1.945815.3.579.2.98 1967 Unknown [id number] 2.16.840.1.503271.3.579.2.98 1967 Unknown [id number] 2.16.840.1.144548.3.579.2 1967 Unknown [id number] 2.16.840.1.693937.3.579.2 1967 Unknown [id number] 2.840.1.862217.3.579.2 1967 Unknown [id number] 2.16840.1.169734.3.579. 1967 Unknown [id number] 2.16.840.1.760843.3.579. 1967 Unknown [id number] 2.16.840.1.219747.3.579.2 1967 Unknown [id number] 2.16.840.1.189628.3.579.2 1967 Unknown [id number] 2.16.840.1.496945.3.579.2 1967 Unknown [id number] 2.16.840.1.035384.3.579.2 1967 Unknown [id number] 2.16.840.1.703720.3.579.2 1967 Unknown [id number] 2.16.840.1.397696.3.579.2727 1967 Unknown [id number] 2.16.840.1.511735.3.579.2727 1967 Unknown [id number] 2.16.840.1.473611.3.579.2727 1967 Unknown [id number] 2.16.840.1.477688.3.579.272 1967 Unknown [id number] 2.16.840.1.748675.3.579.272 Unknown [place] BC/BS [id number] Social History Date Type Detail Facility Start: 12-21-2017 End: 03-17-2024 Tobacco smoking status NHIS Never smoker [facility] Work Phone: Start: 1965 Sex Assigned At Not on file O [facility] Work Phone: Start: 03-17-2019 Alcohol Comment occasionally [employer] Start: 03-17-2019 End: 03-12-2024 Alcohol intake Yes [employer] Start: 12-26-2019 End: 03-12-2024 Alcohol intake Current drinker of alcohol (finding) [facility] Start: 12-21-2017 End: 2021 Tobacco use and exposure Never used [facility] [employer] Start: 03-17-2019 Alcohol Comment occasionally [facility] Tobacco smoking status No Smoking Status Entered [facility] Tobacco smoking status No Smoking Status Entered [facility] Start: 08-21-2023 End: 03-12-2024 History of Social function [facility] [employer] Start: 12-07-2017 Gender identity Identifies as male gender (finding) [facility] Tobacco smoking status Never [facility] Start: 1965 Sex Assigned At Male F [facility] Functional Status Date Assessment Result Facility 03-17-2024 Functional Status N/A [facility] 01-25-2024 Functional Status N/A [facility] 01-18-2024 Functional Status N/A [facility] 01-10-2024 Functional Status N/A [facility] 01-04-2024 Functional Status N/A [facility] 01-04-2024 Functional Status [facility] 01-01-2024 Functional Status N/A [facility] 12-10-2023 Functional Status N/A [facility] 10-26-2023 Functional Status N/A [facility] Clinical Notes 04-12-2021 to 03-17-2024 BRY Andrade [...] treatment? Where to find more information [employer]: www.cancer.org [employer]: www.auanet.org Contact a health care [...] provider. Document Revised: 05/01/2022 Document Reviewed: 05/01/2022 [employer] Patient Education 2022 [employer] Follow Up Care 01/30/2024 12:56:12 With:RICKY LEVIN, Nadir Mercado, URL Address: [facility] [address] [place] [address] [phone] When: Unknown Comments:10 mos w/ PSA [facility] 03-12-2024 History of Present illness Narrative Subjective History of Present Illness Patient had a prostate bx done 01/01/[address] García. Following this, he developed prostatitis. Presented to [facility] in [place] on 01/04/2024 with high fever and pressure with urination and did end up having burning with urination. Blood and urine cultures ran and negative. Started on IV antibiotics for a few days then discharged on 01/07/2024 with oral ATB's. Was seen 01/18/[address] García for clearance for travel and was cleared. Went to [facility] from to the 7th. Had to return [...] reason for visit today is to have [facility] paperwork updated. Was seen here on 02/11/2024, [...] Sooner if needed. documented in this encounter [facility] 02-11-2024 History of Present illness Narrative Subjective History of Present Illness Patient had a prostate bx done 01/01/[address] García. Following this, he developed prostatitis. Presented to [facility] in [place] on 01/04/2024 with high fever and pressure with urination and did end up having burning with urination. Blood and urine cultures ran and negative. Started on IV antibiotics for a few days then discharged on 01/07/2024 with oral ATB's. Was seen 01/18/[address] García for clearance for travel and was cleared. Went to [facility] from to the . Had to return [...] X 6 weeks. He is scheduled through [facility] after 6 weeks of ATB. Patient's current s/sx include does get shortness of breath and chest tightness with stairs and quicker exertion. Chest tightness will sometimes happen just while sitting. Aggravating factors exertion but sometimes without exertion, unsure if anxious when this happens. Relieving factors none. Associated s/sx none. Patient's reason for visit today is to have [facility] paperwork filled out that his urologist (who [...] testing or procedures.) documented in this encounter [facility] 02-05-2024 Note [id number] [facility] 02-05-2024 Note [id number] [facility] 02-03-2024 Note Microbiology PROCEDURE: Blood Culture Charcoal [R1] SOURCE: Blood BODY SITE: Arm R COLLECTED DATE/TIME: 01/25/2024 14:51 EST RECEIVED DATE/TIME: 01/25/2024 15:50 EST START DATE/TIME: 01/25/2024 15:50 EST FREE TEXT SOURCE: IV start Ines HONG, Jaden Chacon PA-C, Jaden FINAL REPORTS Final Report [] Verified Date/Time: 02/01/2024 18:00 EDT No growth at 7 days. Performing Locations R1: This test was performed at: [facility], [address] [place] [address], [facility] , , [facility] Comment on above: Performed By: #### 1 [id number], [id number], [id number], [id number] #### [facility] [address] [place] [id number] 01-29-2024 Evaluation + Plan note Extrac melly [...] BERRY NP Within 5 to [address] [place] [phone] Business (1) Additional Instructions: Call for followup appointment RICKY LEVIN, GERONIMO Jacobs Within 2 weeks [facility] [address], [place] [address]- Additional Instructions: Call for followup appointment PICC Home Care Guide Prostatitis, Jcce-av-Hoff Addendum by Juan David Brown DO, am [...] 0 Hospital Discharge Day > 30 Min 75730 PSA Total PSA Total PSA Total PSA Total PSA Total PSA Total Sbsq Hospital Care/Day Moderate 35 Minutes 00745 Sepsis (A41.9: Sepsis, unspecified organism) 2/2 above [...] Date:08/01/2024 11:00:00 AM Scheduled Provider:Nadir GARCÍA MD Location:[facility] Appointment Type:URO Office Visit Future Scheduled Tests Laboratory* PSA Total 02/05/24 * PSA Total 02/12/24 * PSA Total 02/19/24 * PSA Total 02/26/24 * PSA Total 03/04/24 * PSA Total 03/11/24 [facility]03-12-2024 NoteAdmission and Discharge Information Admit Date/Time:01/25/2024 18:43 Admitting Physician - Christie LEVIN, Louias Consulting Physician - Nikita Rodney M.D Admitting [...] BERRY NP Within 5 to [address] [place] [phone]- Business (1) Additional Instructions: Call for followup appointment RICKY LEVIN, GERONIMO Jacobs Within 2 weeks [facility] [address], [place] [address]- Additional Instructions: Call for followup appointment Patient Education PICC Home Care Guide Prostatitis, Nadp-if-Olga Patient will follow-up with Dr. Rodney as outpatient as well.[facility] TroyComment on above:Result Comment: Electronically Signed By: Rod Brown DO\.br\Date and Time Signed: 01/29/24 13:36 [id number] Hospital Discharge instructions Patient Education 01/28/2024 11:11:18 [...] and water are not available, use hand safety and security officer. ?Change your dressing only if taught to [...] provider. Document Revised: 05/24/2022 Document Reviewed: 05/24/2022 Manflu Patient Education 2022 Plexxi. 01/28/2024 11:10:28 Prostatitis, Addl-qo-Ictp Prostatitis Prostatitis is swelling of the prostate [...] Follow these instructions at home: Medicines Take jqzs-ros-hnofmhe and prescription medicines only as told by [...] important. Where to find more information National [place] of Diabetes and Digestive and Kidney Diseases: [...] on the type that you have. Take nbyy-ejo-jhyfpby and prescription medicines only as told by [...] provider. Document Revised: 12/10/2020 Document Reviewed: 12/10/2020 Manflu Patient Education 2022 Plexxi. Follow Up Care 01/25/2024 13:36:40 With:Ronel Clemente, Nikita Daigle, [facility] Address: [address] [place] [address] [place] [address]- When:2 weeks Comments:Call for followup appointment With:Nikita Rodney Address: [facility] [place] [address]- Business (1) When:2 to 4 weeks With:KRISTI MENA DELPHINE Address: [address] [place] [address], [place] [address] Business (1) When:5 to 7 days Comments:Call for followup appointment With:RICKY LEVIN, Nadir Mercado, URL Address: [facility] [address], [place] [address]- When:2 weeks Comments:Call for followup appointment [facility]03-11-2024 NoteMicrobiology PROCEDURE: Blood Culture Charcoal [R1] [...] Locations R1: This test was performed at: [facility], [address] [place] [address], [id number] , , BughcpKettering Health TroyComment on above:Performed By: #### [id number] #### [facility] [address] [place] [place] [address] [id number] NoteBasic Information Admit Date/Time:01/25/2024 18:46 Chief Complaint [...] Lymph Auto: 5 % Low (01/25/24 14:51:00) [place] Auto: 6.8 % (01/25/24 14:51:00) Eos Auto: 0.2 % (01/25/24 14:51:00) Basophil Auto: 0.1 % (01/25/24 14:51:00) Neutro Absolute: 13.8 E9/L High (01/25/24 14:51:00) Lymph Absolute: 0.8 E9/L Low (01/25/24 14:51:00) [place] Absolute: 1.1 E9/L High (01/25/24 14:51:00) Eos [...] Medical Conditions -med rec (more content not included)...[facility] TroyComment on above:Result Comment: Electronically Signed By: Christie LEVIN, Louisa\.br\Date and Time Signed: 01/25/24 19:22 [id number] Hospital Discharge instructions Patient Education 01/18/2024 11:33:02 [...] Follow these instructions at home: Medicines Take ozil-kvu-repqgyb and prescription medicines only as told by [...] important. Where to find more information [place] of Diabetes and Digestive and Kidney Diseases: [...] depends on the type of prostatitis. Take qhlp-ylf-hkezqeb and prescription medicines only as told by [...] provider. Document Revised: 12/10/2020 Document Reviewed: 12/10/2020 Manflu Patient Education 2022 Plexxi. Follow Up Care 12/10/2023 12:59:15 With:Nadir GARCÍA MD, URL Address: [address] [place] [address]- When: Unknown [facility] [place] 02-23-2024 NoteMicrobiology PROCEDURE: Blood Culture Charcoal [R1] SOURCE: Blood BODY SITE: Arm R COLLECTED DATE/TIME: 01/04/2024 16:20 EST RECEIVED DATE/TIME: 01/04/2024 16:44 EST START DATE/TIME: 01/04/2024 16:44 EST FREE TEXT SOURCE: Daniel Espinoza PA-C. Daniel Espinoza PA-C. FINAL REPORTS Final Report [] Verified Date/Time: 01/11/2024 18:00 EST No growth at 7 days. Performing Locations R1: This test was performed at: [facility], [address] [place] [address], [id number] [place] [address], [id number] Tyler StreetComment on above:Performed By: #### [id number], [id number], [id number], [id number] #### [facility] [address] [place] [place] [address] [id number] NoteMicrobiology PROCEDURE: Blood Culture Charcoal [R1] SOURCE: Blood BODY SITE: Arm L COLLECTED DATE/TIME: 01/04/2024 16:28 EST RECEIVED DATE/TIME: 01/04/2024 16:44 EST START DATE/TIME: 01/04/2024 16:44 EST FREE TEXT SOURCE: Daniel Espinoza PA-C. Daniel Espinoza PA-C. FINAL REPORTS Final Report [] Verified Date/Time: 01/11/2024 18:00 EST No growth at 7 days. Performing Locations R1: This test was performed at: [facility], [address] [place] [address], [id number] [place] [address], [address] [place], [place] [address]Comment on above:Performed By: #### [id number], [id number], [id number], [id number], [id number], [id number] #### [facility] [address] [place], [place] [id number] Evaluation + Plan noteExtracted from: Title:ED Note Author:Amauri Tran DO Date: Superficial thrombophlebitis (I80.9: Phlebitis and thrombophlebitis of unspecified site) Orders: cephalexin, 500 mg = 1 cap(s), Oral, QID, X 7 day(s), # 28 cap(s), Refills(s) 0, Pharmacy: [facility], 178, cm, 01/10/24 10:05:00 EST, Height/Length Dosing, 82.6, kg, 01/10/24 10:05:00 EST, Weight Dosing Future Appointments Appointment Date:01/18/2024 11:00:00 AM Scheduled Provider:Nadir GARCÍA MD Location:[facility] Appointment Type:URO Office Visit [facility]02-22-2024 Hospital Discharge instructions Patient Education 01/10/2024 [...] Follow these instructions at home: Medicines Take weoo-pfz-wurrqiq and prescription medicines only as told by [...] provider. Document Revised: 05/01/2022 Document Reviewed: 05/01/2022 Manflu Patient Education 2022 Plexxi. Follow Up Care 01/10/2024 09:55:08 With:DELPHINE BERRY [...] you develop any new or worsening symptoms. [facility]02-19-2024 Evaluation + Plan noteExtracted from: Title:Discharge [...] [facility] [address], [place] [address]- Business (1) Additional Instructions: DELPHINE BERRY In [...] drops Extracted from: Title:Admission H & P Author:Ramesh zamora Cici Hilary Date:01/04/24 DVT prophylaxis PAS [...] Date:01/18/2024 11:00:00 AM Scheduled Provider:Nadir GARCÍA MD Location:[facility] Appointment Type:URO Office Visit [facility]02-19-2024 Hospital Discharge instructions Patient Education 01/07/2024 [...] Follow these instructions at home: Medicines Take bzvc-bck-dwbmrcy and prescription medicines only as told by [...] important. Where to find more information [place] of Diabetes and Digestive and Kidney Diseases: [...] depends on the type of prostatitis. Take vpnb-tpp-krqwdeo and prescription medicines only as told by [...] provider. Document Revised: 12/10/2020 Document Reviewed: 12/10/2020 Manflu Patient Education 2022 Plexxi. Follow Up Care 01/04/2024 15:26:00 With:Nadir GARCÍA Address: [facility] [address] [place] [address] [facility] (1) When: Unknown Comments:Call for followup appointment With:DELPHINE BERRY Address:Unknown When: Unknown Comments:Call for followup appointment [facility]02-19-2024 NoteAdmission and Discharge Information Admit Date/Time:01/04/2024 [...] He does have an upcoming trip to [place] and was instructed not to consume alcohol [...] [facility] [address], [place] [address]- Business(1) Additional Instructions: DELPHINE BERRY In 0 days Additional Instructions:[facility] TroyComment on above:Result Comment: Electronically Signed By: Christie LEVIN, Louisa\.br\Date and Time Signed: 01/07/24 10:53 [id number] NoteBasic Information Admit Date/Time:01/04/2024 17:09 Chief Complaint [...] Lymph Auto: 6.3 % Low (01/04/24 16:20:00) [place] Auto: 8.3 % (01/04/24 16:20:00) Eos Auto: 0 % (01/04/24 16:20:00) Basophil Auto: 0.1 % (01/04/24 16:20:00) Neutro Absolute: 12.5 E9/L High (01/04/24 16:20:00) Lymph Absolute: 0.9 E9/L Low (01/04/24 16:20:00) [place] Absolute: 1.2 E9/L High (01/04/24 16:20:00) Eos [...] B Ag: NEGATIVE1 ( (more content not included)...[facility] TroyComment on above:Result Comment: Electronically Signed By: Rod Brown DO\.br\Date and Time Signed: 01/04/24 19:25 [id number] Hospital Discharge instructions Patient Education 01/01/2024 10:41:56 [...] for your post-operative appointment in 1-2 weeks [phone] or [phone] Follow Up Care 12/11/2023 09:20:43 With:Nadir GARCÍA Address: [facility] [address] [place] [address]- [facility] (1) When: Unknown Comments:Keep scheduled appointment [facility]01-22-2024 Hospital Discharge instructions Patient Education 12/10/2023 [...] urethra. Follow these instructions at home: Take qolp-nui-nsmubtd and prescription medicines only as told by [...] provider. Document Revised: 05/24/2022 Document Reviewed: 05/24/2022 Manflu Patient Education 2022 Plexxi. Follow Up Care 09/06/2023 13:00:22 With:RICKY LEVIN, Nadir Mercado, URL Address: [facility] [address], [place] [address]- When: Unknown Comments:Sched TRUS/bx [facility] 01-22-2024 NoteChief Complaint Referral *Elevated PSA [...] Advised p that he will need a driver guide. SANCHEZ: 45gms, benign All questions/concerns were discussed. [...] pharmacy on file. Pt will need a driver guide to the procedure. Follow-up With When Contact Information RICKY LEVIN, Nadir Mercado, GERONIMO [facility] [address], [place] [address]- Additional Instructions: Sched TRUS/bx Patient Education Benign Prostatic Hyperplasia I, Manisha Betancourt , personally scribed for Dr. García on 12/10/2023 12:54:35. . Documentation recorded by (more content not included)...[facility] TroyComment on above:Result Comment: Electronically Signed By: Nadir GARCÍA MD\.br\Date and Time Signed: 12/10/23 12:57 EST\.br\Electronically Co- Signed By: Manisha Betancourt\.br\Date and Time Co-Signed: 12/10/23 12:54 EST 10-29-2023 [id number] [facility]12-[facility] Hospital Discharge instructions Patient Education 10/26/2023 10:36:08 Colonoscopy, Care After Surgery Salam (CUSTOM) Colonoscopy Care After Surgery Please read the instructions outlined below and refer to this sheet in the next few weeks. These discharge instructions provide you with general information on caring for yourself [facility] Your doctor may also give you specific [...] unsweetened, w/added ascorbic acid 1 cup 0.5 Clay 1 cup 0.7 Vegetables Cooked Green beans 1 cup 4.0 Carrots 1/2 cup sliced 2.3 Peas 1 cup 8.8 Potato (baked, with skin) 1 medium potato 3.8 Raw [place] (with peel) 1 cucumber 1.5 Lettuce 1 [...] 8.7 Peanuts 1/2 cup 7.9 [address] [facility] 2013. SEEK IMMEDIATE MEDICAL CARE IF: You [...] Nutrient Database for Standard Reference. Available at http://www.Profista.usda.gov/fnic/foodcomp/search/. Information adapted from: [facility] Patient Information 2010 [employer]. Remind 2013 http://www.Remind/contents/kchmobonjujl-ctkvdqb-yxxtvf-the-basics 10/26/2023 10:36:08 Hemorrhoids Hemorrhoids Hemorrhoids are swollen [...] 3 times a day. General instructions Take vjlj-hxb-eeazqwb and prescription medicines only as told by [...] provider. Document Revised: 05/17/2022 Document Reviewed: 05/17/2022 Manflu Patient Education 2022 [employer]. 10/26/2023 10:36:08 Colon Polyps Colon Polyps [...] hard liquor (44 mL). General instructions Take hcsc-jat-tpkwtxl and prescription medicines only as told by [...] provider. Document Revised: 02/23/2021 Document Reviewed: 02/23/2021 Manflu Patient Education 2022 Plexxi. Follow Up Care 08/28/2023 16:17:11 With:Cristóbal Lowe Address: [address] [place] [address], [address] [phone] Business (1) When: Unknown Comments:office will calll for follow up [facility]10-10-2023 NoteRadiology Colonoscopy, Adult A colonoscopy is [...] including vitamins, herbs, eye drops, creams, and ebmj-haa-glfujgb medicines. ? Any problems you or family [...] tells you to take them. ? Taking pdly-bkt-gidyxpr medicines, vitamins, herbs, and supplements. General instructions [...] checked for cancer cells. 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 Pt states [...] F/U pending referral results. documented in this [facility]09-[facility] History of Present illness Narrative* Hector Lo [...] therapy? no Xrays? 06/23/2022 right kinee MRI? 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 [...] therapy? no Xrays? 06/23/2022 right kinee MRI? 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 [...] findings. 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 Additions if any: Earle Henderson MD, [facility] Hockey Player - [facility] documented in this encounterUniversity [facility]als [facility]05-13-2022 History of Present illness Narrative* Delphine Morton Kristi, 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 - 03/31/2022 1:30 PM EDT History of [...] allergic to honey bee venom and penicillins. [place] and [place] pollen Family History family history includes Lipid [...] will refer to urology. documented in this [facility]05-25-2021 History of Present illness Narrative* Delphine Berry APRN-CNP - 04/12/2021 7:00 AM EDT History of Present Illness ED F/U for allergic reaction Patient presented to [facility] ED on 04/10/2021 with complaints of eye [...] needed pending referral results. documented in this [facility]05-25-2021 Instructions* Patient Instructions* Delphine Berry [...] needed pending referral results. [facility] this [facility] No data available for this section [facility] Future Appointments Appointment Date:12/10/2023 11:00:00 AM Scheduled Provider:Nadir GARCÍA MD Location:[facility] Appointment Type:URO New Patient [facility] Future Appointments Appointment Date:01/18/2024 11:00:00 AM Scheduled Provider:Nadir GARCÍA MD Location:[facility] Appointment Type:URO Office Visit [facility] evaluation + Plan note Future Appointments Appointment Date:01/18/2024 11:00:00 AM Scheduled Provider:Nadir GARCÍA MD Location:[facility] Appointment Type:URO Office Visit Diagnostic Tests Pending * Prostate Histology ([facility]) 01/01/24 [facility] Future Appointments Appointment Date:08/01/2024 11:00:00 AM Scheduled Provider:Nadir GARCÍA MD Location:[facility] Appointment Type:URO Office Visit [facility] evaluation + Plan note Future Appointments Appointment Date:12/29/2024 02:30:00 PM Scheduled Provider:Nadir GARCÍA MD Location:[facility] Appointment Type:URO Office Visit Future Scheduled Tests Laboratory* PSA Total 01/16/25 * PSA Total 02/05/24 * PSA Total 02/12/24 * PSA Total 02/19/24 * PSA Total 02/26/24 * PSA Total 03/04/24 * PSA Total 03/11/24 [facility] evaluation note* Diagnosis Environmental and seasonal allergies- Primary documented in this encounter [facility]* Diagnosis Routine general medical examination at a health care facility- Primary Elevated PSA Elevated prostate specific antigen (PSA) documented in this [facility]* Diagnosis Right knee pain, unspecified chronicity- Primary Acute medial meniscus tear, right, initial encounter documented in this [facility]* Diagnosis Primary osteoarthritis of right knee- Primary Primary localized osteoarthrosis, lower leg Subchondral insufficiency fracture of condyle of right femur, initial encounter Osteochondral defect of femoral condyle Acquired musculoskeletal deformity of other specified site documented in this [facility]* Diagnosis Routine general medical examination at a health care facility- Primary Elevated PSA Elevated prostate specific antigen (PSA) Urinary frequency Encounter for screening colonoscopy Special screening for malignant neoplasms, colon documented in this [facility]* Diagnosis History of UTI- Primary Personal history of urinary (tract) infection Acute on chronic prostatitis Sepsis without acute organ dysfunction, due to unspecified organism Chest pain, unspecified type Chest tightness Other chest pain Shortness of breath Other eczema documented in this encounter [facility] noteNo assessment information availableMer[facility] Work Phone: Evaluation note* Diagnosis Acute on chronic prostatitis- Primary documented in this encounter [facility] CenterHospital Discharge instructions No data available for this section [facility] No data available for this section [facility] for referral (narrative)* Consultation (Routine) Status Reason Specialty Diagnoses / Procedures Referred By Contact Referred To Contact [facility] Diagnoses Environmental and seasonal allergies Delphine Berry APRN-CNP [address] [place] [address] Electronically signed by Delphine LONDONO at [facility] for referral (narrative)* Consultation (Routine) - New Request Specialty Diagnoses / Procedures Referred By Quan mendoza Referred To Contact Gastroenterology Diagnoses Encounter for screening colonoscopy Delphine Berry APRN-CNP [address] [place] [address] Luis A Weinberg MD [address] [place] [address] Referral ID Status Reason Start Date Expiration Date V isits Requested Visits Authorized [id number] New Request 08/21/2023 09/14/2024 1 1 * Consultation (Routine) - New Request Specialty Diagnoses / Procedures Referred By Quan mendoza Referred To Contact Urology Diagnoses Elevated PSA Urinary frequency Delphine Berry APRN-CNP [address] [place] [address] Referral ID Status Reason Start Date Expiration Date V isits Requested Visits Authorized [id number] New Request 08/21/2023 09/14/2024 1 1 [facility] Assessments Diagnosis Routine general medical examination at [...] trial medication for this. Script sent for Trupaniona. Advised on med, how to take potential [...] look into further with cardiovascular work-up per benzol still operator as well as carotid U/S and consideration [...] years and is described as sustaining erections. 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 Ejaculatory problems [...] trial medication for this. Script sent for [employer]. Advised on med, how to take potential [...] clot process. States goes Sunday to [facility] for MRI. States is using crutches. States [...] is intact. Romberg sign negative. Coordination normal. Opkwjg-Yttv-Cxbzkk Test normal. Gait: Gait is intact. Gait [...] look into further with cardiovascular work-up per benzol still operator as well as carotid U/S and consideration [...] left knee Delphine Berry APRN-CNP [address] [place] [address] [facility] [address] [place] [id number] Status Reason Specialty Diagnoses / Procedures Referred By Contact Referred To Contact New Request Diagnoses Right calf pain Localized swelling of right lower leg Procedures MRI KNEE RIGHT WITHOUT CONTRAST WI MRI LOWER EXTREM JT, W/O CONTRAST Delphine Berry APRN-CNP [address] [place] [address] Status Reason Specialty Diagnoses / Procedures Referred By Contact Referred To Contact Auth Not Needed Diagnoses Right calf pain Localized swelling of right lower leg Procedures US DUPLEX EXTREMITY DVT RIGHT Delphine Berry APRN-CNP [address] [place] [address] Specialty Diagnoses / Procedures Referred By Contac t Referred To Contact Diagnoses Right knee pain, unspecified chronicity Acute medial meniscus tear, right, initial encounter Procedures MRI KNEE RIGHT WITHOUT CONTRAST WI MRI LOWER EXTREM JT, W/O CONTRAST Earle Henderson MD [address] [place] [address] [place] [address] Referral ID Status Reason Start Date Expiration Date V isits Requested Visits Authorized [id number] New Request 06/28/2022 07/23/2023 1 1 Summary [...] Care Teams (unrecognized sec tion and content) Golf Coach Relationship Specialty Start Date End Date [facility]phine [facility] PCP - General Nurse Practitioner - Family 12/07/17 Golf Coach Relationship Specialty Start Date End Date Delphine Berry APRNCERTIFIED REGISTERED DENTAL ASSISTANT PCP - General Nurse Practitioner - Family 12/07/17 Golf Coach Relationship Specialty Start Date End Date Delphine Berry APRNCERTIFIED REGISTERED DENTAL ASSISTANT PCP - General Nurse Practitioner - Family 12/07/17 Golf Coach Relationship Specialty Start Date End Date Delphine Berry APRNCERTIFIED REGISTERED DENTAL ASSISTANT PCP - General Nurse Practitioner - Family 12/07/17 Golf Coach Relationship Specialty Start Date End Date Delphine Berry APRN-CNP PCP - General Nurse Practitioner - Family 12/07/17 Golf Coach Relationship Specialty Start Date End Date Delphine Berry APRN-CNP PCP - General Nurse Practitioner - [facility] 12/07/17 Team Status: Active Member Role Status Dates Arnold Moya MD Primary Care Provider Active Team Status: Inactive Member Role Status Dates Nikita Rodney MD Attending Provider Active Sta rt: March 10, 2024 End: March 10, 2024 Arnold Moya MD Primary Care Provider Active Start: March 10, 2024 End: March 10, 2024 Golf Coach Relationship Specialty Start Date End Date Delphine Berry APRN-CNP PCP - General Nurse Practitioner - [facility] 12/07/17 (unrecognized sect ion and content) No Status Records FoundNo Status Records FoundNo Status Records Found INFORMATION SOURCE (unrecogn ized section and content) DATE CREATED AUTHOR 09/10/2022 [facility] DATE CREATED AUTHOR AUTHOR'S ORGANIZ ATION 03/13/2024 [facility] DATE CREATED AUTHOR AUTHOR'S ORGANIZ ATION 05/10/2024 [facility] [facility] (unrecognized section and content) Goals [...] BE BASED ON THE PRIMARY CLINICAL RECORDS. [facility]. provides no warranty or guarantee of the accuracy or completeness of information in this document.
== END 2024-06-27 09:17 | disposition home or self-care (01) ==
LOC: EC 09:16
PROVIDERS: Visit Provider Podiatrist Foot & Ankle Surgery
DX: M25.572 Pain in left ankle and joints of left foot (principal); M24.672 Ankylosis, left ankle
CPT/HCPCS: 73610

== ENCOUNTER 2024-07-24 15:39 | Outpatient (OUT) | payer BC, SELFPAY ==
--- NOTE | 2024-07-24 | XR_ITS ---
The [address] [address] Patient Name: STEVE JOHN MRN: [id number] date: 1965 Sex: M Assigned Patient Location: Current Patient Location: Accession/Order Number: [id number] Exam Date: 07/24/2024 15:45 Report Date: 07/25/2024 06:29 At the request of: PATRICK KLEIN Procedure: XR ankle LT min 3V PROCEDURE: XR ankle LT min 3V HISTORY: LEFT ANKLE PAIN COMPARISON: XR ankle left 06/27/2024 FINDINGS: BONES:Mechanical fusion of the tibiotalar joint via multiple screws; no appreciable hardware fracture or loosening. Resection of distal fibula. Suspect remote fracture and healing of distal fibula. SOFT TISSUES:Soft tissue swelling; lateral greater than medial. EFFUSION:None visible. OTHER: Negative. XR/XR ankle LT min 3V IMPRESSION: 1. Stable surgical changes without evidence of hardware failure or change in alignment. Electronically authenticated by: LEXY VALENCIA Date: 07/25/2024 06:29
== END 2024-07-24 15:40 | disposition home or self-care (01) ==
LOC: EC 15:39
PROVIDERS: Visit Provider Podiatrist Foot & Ankle Surgery
DX: M25.572 Pain in left ankle and joints of left foot (principal); M24.672 Ankylosis, left ankle
CPT/HCPCS: 73610

== ENCOUNTER 2024-08-07 15:12 | Outpatient (OUT) | payer BC, SELFPAY ==
--- NOTE | 2024-08-07 | XR_ITS ---
The [address] [address] Patient Name: STEVE JOHN MRN: [id number] date: 1965 Sex: M Assigned Patient Location: Current Patient Location: Accession/Order Number: [id number] Exam Date: 08/07/2024 15:13 Report Date: 08/11/2024 07:39 At the request of: NICOLE GRIFFIN Procedure: XR ankle LT min 3V PROCEDURE: XR ankle LT min 3V COMPARISON: 07/24/2024 HISTORY: LEFT ANKLE PAIN FINDINGS: BONES:Stable tibiotalar fusion with multiple screws. Partial bony bridging. Remote resection distal fibula. Moderate enthesopathic spurring of the calcaneus. SOFT TISSUES:Negative. No visible soft tissue swelling. EFFUSION:None visible. OTHER: Negative. XR/XR ankle LT min 3V IMPRESSION: Stable tibiotalar fusion with partial bony bridging Electronically authenticated by: OTILIA MEYER Date: 08/11/2024 07:39
--- OUTSIDE RECORDS SUMMARY | 2024-08-07 15:35 | XMS_ITS | CCD ---
Author Organization [facility] Care Team Providers Care Diabetes Specialist Name Role Phone Trubachik, Delphine A Unavailable [phone] Trubachik AUTOMATION CONSULTANT-BUSINESS RISK ANALYST, Delphine A Primary Care Provide r ARNOLD MOYA Primary Care Physician Jade Tinajero Unavailable Unavailable TRUBACHIK, DELPHINE Primary Care Physician Trubachik AUTOMATION CONSULTANT-BUSINESS RISK ANALYST, Delphine A Primary Care Provide r SELF, SELF Referring Unavailable TRUBACHIK, DELPHINE Primary Care Unavailable EARLE HENDERSON S Attending Unavailable TRUBACHIK, DELPHINE Primary Care Unavailable EARLE HENDERSON S Referring Unavailable HENDERSONEARLE S Attending Unavailable TRUBACHIK, DELPHINE Primary Care Unavailable EARLE HENDERSON S Attending Unavailable SELF, SELF Referring Unavailable Trubachik AUTOMATION CONSULTANT-BUSINESS RISK ANALYST, Delphine A Primary Care Provide r TRUBACHIK, [...] ble Marymineligio, Ambrocio Cathi Admitting Unavaila ble Nadri GARCÍA R Admitting Unavailable GARCÍA, Nadir R Referring Unavailable GARCÍA, Nadir R Attending Unavailable TRUBACHIK, DELPHINE Primary Care Unavailable Allergies Allergy Classification Reported Allergen(s) Allergy Type Date of Onset Reaction(s) Facility Bee/Wasp/Ant Venom (1 source) Honey bee venom Substance Allergy 1 [facility] Work Phone: Penicillins (antibiotic) (2 sources) Penicillins; Translations: [penicillins] Drug Allergy 8 [facility] (20 sources) Penicillins; Translations: [penicillins] Propensity to adverse reactions to drug 8 Unknown (qualifier value), Rash [facility] Work Phone: (8 sources) Honey bee venom Propensity to adverse reactions to drug 1 [facility] (7 sources) Pollen Propensity to adverse reactions to drug 2 [facility] (3 sources) Penicillins Propensity to adverse reactions to drug 8 [facility] (1 source) bee sting Allergy to substance 4 Unknown Reaction [facility] Medications Current Medications Medication Drug Class(es) Dates [...] Daily, # 30 tab(s), Refills(s) 11, Pharmacy: [facility], 178, cm, 12/10/23 11:59:00 EST, Height/Length [...] Daily, # 21 tab(s), Refills(s) 0, Pharmacy: [facility] Start Date: 05/07/19 Status: Ordered Start: 05-07-2019 take 1 tablet by colleen th once daily Ecotrin 325 mg Tab-EC 325 mg = 1 tab(s), Oral, Daily, # 21 tab(s), Refills(s) 0, Pharmacy: [facility] Start Date: 05/07/19 Status: Ordered Calcium [...] day(s), # 28 cap(s), Refills(s) 0, Pharmacy: [facility], 178, cm, 01/10/24 10:05:00 EST, Height/Length [...] procedure., # 1 tab(s), Refills(s) 0, Pharmacy: [facility], 178, cm, 12/10/23 11:59:00 EST, Height/Length [...] day(s), # 14 tab(s), Refills(s) 0, Pharmacy: [facility], 178, cm, 01/04/24 16:00:00 EST, Height/Length [...] Daily, # 30 tab(s), Refills(s) 11, Pharmacy: [facility], 178, cm, 01/18/24 11:25:00 EST, Height/Length [...] Daily, # 30 tab(s), Refills(s) 11, Pharmacy: [facility], 178, cm, 01/18/24 11:25:00 EST, Height/Length [...] hours., # 30 tab(s), Refills(s) 4, Pharmacy: [facility], 178, cm, 01/18/24 11:25:00 EST, Height/Length [...] tablet (4 sources) Opioid Agonist Start: 9 [place] 325 mg-5 mg oral tablet See Instructions, for pain, 40 tab(s), Refill(s) 0, 1 - 2 po q4-6h prn pain Dx: M67.52 Duration: 7 days, [facility] Start Date: 05/07/19 Status: Ordered diphenhydrAMINE [...] source) Long-term current use of antibiotic; Translations: [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 TMBKIjbo35HFg8cVt+PG hl YWQ+DS6GNJMrR13igLDalU 6fZ3PNYDaOYvqjCRCMQYzF ZxKishClLQ2ofGUeMHTj IC8+VZ3gJNGrLpsljFJmh1 X0cJU5Y85hdt5gUTlfsNT2 RFXnPeGwsuqpy2pmcTx7QW cuNmluOyBt ZAXpiC27SWO7jJ91Vt53aO EniLIdt3hacBj2MoZeKJCi ASV4qTtkGGwkt5JoOUCzH4 0onOBon3U4 YGBmfJagvZSiGsMvzHJ5rX 6yIGudajtmk3qlfacuMpl0 eo94lJSfi3X9uMJ3W4Vixy H7OESioEFt UxkpvSUXqH7tarett5zdju ywVoYiVNIjFMk5RZl7CLQk mUrzVnOyFL93HPI9QYAyet SoI9NvMFUe xYasUdE4f1Y5Kh3WJ0XDFx bdY8JDAJMLEQnnvGW+PC90 dn65J5FbEjysRaq1TFWpIC P0oEL5dK6g GIKfBFlfw5V6nQV6K9Fmmu Ygnz4co4vpVBPwPZfgN39u lPSqq6D1WONunUV9MXEotX glEnAzoY63 Oyc+QLLqjHrab7HdEyste6 cnz8rksCp2TjioSSBkvlGf xPuiIOM3t9KbCk9jQIHvlR Q1kNZ7nO3r LwIpUxG0HWwoF567FiRtuH DgDubaV26oH0ZrnTV+PHRy Alc7CVJdtKgrPH9zP5CaCA RpbmctbGVm oXgdRW6xJQCymbdxZQFpaL 6oTIGhU6n1PeKlFjE5ZPyc C9VtCWHmkbsiZx48cY4gMl QeScM3JBbr G3IcruR0TPSvlZWjMArjWE P7T58cv0T0CHDzGZBmPPR3 zRV2zC8gvMwvpgdvlPTqnC sgdmVydGlj RYtaQDlyC492WLKosSyoSo NvZGluZyBEYXRlOiAgMDYv MjAvMjAyNDwvdGQ+PHRkIH O2pQytKSUh zLOxVTapKa9rtVntyNqgXP 5uTXEiroeaBZJyqZ2qNAYn mYVdfBayKX2wVHFczytoe0 61OgPwWXO2 MIBkoCFdY6CcsG8xTgFtFW PgADUaM7LmyUFhETvnW505 BUiaJvN7LMUpuxNiJ6YbBG FsaWduOiB0 y1T5Ds8Of4MgkgtpN1XddJ RaAgDsAqipDDj6F2QaMjoy dHI+MQ64LVSaKP73MAv3BY N0fAftQYia KAXjO0WblG3tToXqFZVuUF RkOyc+PHRhYmxlIHdpZHRo IXfhTWLgPkVzpSqbNG7iTf 9yZGVyLWNv sBsboFIyLoXza2gmKKKkKJ cdKS5gaZjeO4BohDF6LZNj i4q5Zd86S48zK8TlhFV+PG IcaRE5mIJ9 wX0fCjBwFmM3FMyyO327Ve UcdJRxYbxwe9yfn1gkiWm0 GqH1ZOQgyjGxzVtaWWN1y4 ZrKh30E70v IHdpZHRoPSIxNSUiIHZhbG vnyk1gcB7nSf0+PGNvbCB3 oTT0cK1gNiGrHbY7OCpjP8 49InRvcCIv Sjdof8mmz0mrcLv0FuFyHB FxgpKneNqwRDG3c4EmHq04 O8JwyFlqn2LmKcl4io41fF Irv5J8zUF0 J2SnYNZzhctwxMShtAtyGI 8xCJLnrfwqKNTxiD0dKWQm R3j3ShSeFlQ1SAzmY6Kyod S9KVKxqOLs IBCdaYCIiJ8vkomym6vvta ziRjDvGYKwBXi4DTi5ZGPr fQacGhXqTJP6RhN2TNN0yK ZnaF9bjHrq fnnqoA8yYna+WVI7mLHhlD CWEL1kRsbrnRT+PHRkIHN0 wVroRXwmMHHnmJ5lSSNkU2 x7YxMeBeT5 LCweF3QkswO7XWUszTSbBM YwfZPWcB4tyiuqn1tnxjri DuUuOUQeROx7UJk8GMCjvX duOiBsZWZ0 XnY3EHS0hGXxqX8scLsxxv rkmW0yMzh+QmlydGggRGF0 QUv5E7YbSdc0DUQipQloNP 0ncGFkZGlu Cf9jqJkhvNehHD1dWJBspy nep378FkHrf5dpXWAqdNEp IEbuULK2U74do7S2YQOdYC HePVM7jUR1 qM6khErgzxiuxITivVnair GpnXnfQMmeXRfkA126KYYd wForMrOzBDb2F2HiNos8LW VkeBrjUF0z gIVtGEpeRm2ngKmgpWujJB 8vVPSwatfel609RpErf7kt KEKcyTUzDVcaMWR1D76gi9 J2HLSxCQZb MHB9iFD0aD3mdBngccutbY VmdDsgdmVydGljYWwtYWxp Z904MSCowRdxQyRstOp9Y2 SaWlg4GGUq yPeiLT4inPRvRJkxJm0ybV ofaBfvMI1qLWPysbjel412 NkDov5pqRCVxiGHaIKszWC D4X57vn4F1 IWRsAENhVQD2cWU7kM7ifL lnbjogbGVmdDsgdmVydGlj WYjbAJrhU270DPUepAuoIh BhdGllbnQg FQnjOSx5X4AfZhxbpAH+PC 47YJGqFC89bKBetOXek4nk zGw3NxQpKGWvOMD2cOsaDM okw1NkCMCb J63cvXPia4K2NMDnyJwppK RjLhRwoEH8wF1pHPktiplg h3iokvagPkdcu5zemh94hO 88A99bSLpf ZHRoPSIzMCUiIHZhbGlnbj 1byP2nTk7+ONXnuVO3sOM2 kZ4dLBViUbI4OXfgM391Oi RvcCIvPjxj l4iza6rqpNr8LuX5RQKwpg LqeBmqHGD7e2JmXk31I40n IHdpZHRoPSIyMCUiIHZhbG xesf2zuQ8i Ii8+ZHKmqZY0jZH4cN9oQk SiQnN5FLmvQ476HbPmoZUb JsytI04sQ4OpxNI+PHRyPj d4TFZbjNkh KW1nbLEiEPmqGn3fMLK5Gh TbPfMaOQkxG8JeLEBqzmfa glvioVM2RXTaKMUdmI52Jd 9udDogMTBw zCQMaW4pikxad8hunqyxNj DzTZGcOSg2WIp4RTPiaViz JfUfAFT1ImP0LLN9hQIypB 1hbGlnbjog yF9gA9MpYEOnetneGd78yO 2nCaMuZqH9CGlpFgf+Uk9U HfVQOzinL4GZE42OOYPJCX 78DX00dAFx y4V0eJF1P9CmVUOxklrsuv whaVJ5ETBqBOHseJ64eYNd AKbeVn2ca5Z1a179CCHmHY LgkT86Lr0x lZkuOKVidMHRzV7hsjoap6 hevyijYvOnIIAvTDi9SOo7 HAUrlWrvJmVwDVZ6EkY6RW P2pQYxzZ2c wSsbddvhmO8xLgt+MDMvMD VsLZz5GraixFH+PHRkIHN0 sRpsVEumCONfwG3iEOEfZ9 f1ToQjWvY8 DRjrJ0UtFGYcswdvGh04vN 2dGcQsBfN2ZWlfU0BmxhD9 QGNogTMgINwiDLK0T05ge2 E6ITUpHIXy YJX5vDL5lH1pyQeztyzebQ VmdDsgdmVydGljYWwtYWxp Q279YDPkcMerVyG1TWroOS GsXE35BX53 yWRpb3W8eZC1Y3KvRVKgrn bxbnmsaGR9ZISxARCgqI59 lBPeCKvtWu6gy1I6r745PU ZrMSSroF93 Hk0eoHrhBMOruMFJsG4oiq pib6ovwuksUzUzCYTuZCv8 CYr2XWShoYugEzByLHB9At M7VCS1zQOq cA6caGvfxmwayF8xHyo+TW FsZTwvdGQ+KJIxJIJ8oJcv TVqfKFQzmU9pTSOgU6w4Na AzPvO3JSup C9YdLHLudcgyFf54dQ7dLx RqOyU3DJbkC6CvdhK5WEKs fLXsPPygNMP2Z39ke1M2LJ MwMDAwMDA7 aJU3xD8wjMplkmohqCYpqU eteyDtmJexXTemKUvbQ221 MSXaiMrdTg55jWLloZppgc D8O5FbGjff dHI+NM41RDGhLP61lPDotD Don9njbEh6SoLtKWHkYLH0 zIlfFEgvb3KhFVXbY26nfM Ecv0Q1KSVv eMlxcFMcXhXczSS3vZ8zCR hbtojbi4knlfufArfyv5yu zd84vC55T51nDSsaXFCyHW IzMCUiIHZh sVtbrn5ocN8uBb6+PGNvbC N5xWR4aR4mGkUfWoV9HJak W369YmSmbSEkObces3prm9 ofhUc3UoFp FEZdejRriJolNIK1j9SjAd 81R12pXDftODBvGLRnZCQb ZHOjaYaawb3weS9uBy6+PC 5ob4aeay87 aH47pZN+UNEsWXT7tYbbTI caYWLrzR6lVXfgVbL3HONv NpXrhI31mPSuLOicYm1wzP gvvAfkMU3k YVIyrdnqe619LfNtp2lzMQ LmfIVdKWqqKNF9A47qb8H8 DCKvCXMmFSE7dXS2mX6guZ lnbjogbGVm dDsgdmVydGljYWwtYWxpZ2 14RVLqwRlkMgApfNAhZ1vs loDZBG0yGsdniMX+PHRkIH T0pMemATlh TQKtlR3bTZSlI7z6HlNrYx X3MVgmG1AkywF8AQSkrFGk KHSicLUKwS2jymlch6qwmt ogIzAwMDAw BMm0ZCq1WXBizEtkPiPoRF P3TzL6NHP2nQBksG8khKie jsqrtV9wNhr+RklOOjwvdG Q+PHRkIHN0 pMmuNJsiZMSyjD3dUYOyJ7 j5CgJhCwC8HAyvN3SfjzP8 HTCzoIUzAJKlhXKYlU2pcx hft8udscqt AyFvWKJlKOw4GJj1MRGcwC zgPnShHVV2HeF5RQV6yIMr jT1nmDottyezgS0hKqz+TV JOOjwvdGQ+ GEMcSPN9xDrcUXjlPWYkyL 3bECRdF9r7VpLlBdZ9AHme G0SldwZ9CDQmaVFtRHEofK QMkP1lfozi s4fwvjzhGbFwOCOoSGx7LM u6ZDDvaHqwQxSuNML1QrF5 VJU9uEVodB9tuAulnqgeeG 9wOyc+UGF5 TIF3QU11PZ22Y6QyZacxiJ FibGU+PHRhYmxlIHdpZHRo MPjfZFQoPsXajWvcNT7aQm 9yZGVyLWNv bGxhcHNlOiBjb (more content not included)... Normal [facility] CT Lower Extremity w/o Contr ast Lefton [...] MD Transcribed by: JASON Technologist: BRICE, Rylee [facility] US PVR Lower EXT Complete Bi laton [...] Joya MD Transcribed by: JASON Technologist: HAYDEN [facility] Consent for Treatmenton 04-19 Consent for Treatment [id number] 0TIFF [facility] Physician Orderon 04-18-2024 Physician Order [id number]#1. 00TIFF [facility] Insurance Correspondenceon 0 04-17-2024 Insurance Correspondence [id number]#1. 00TIFF [facility] Patient Educationon 03-17-20 24 Patient Education Oncology [...] Where to find more information ? [employer]: www.cancer.org ? [employer]: www.auanet.org Contact a health care [...] flu (more content not included)... Normal [facility] Office/Clinic Noteon 03-17-2024 Urology Office/Clinic Note Chief Complaint [facility] F/U HPI Staff Pt last seen in our office 01/18/24 DX: Elevated PSA, PIN, BPH, OAB, Chronic Prostatitis & ED S/P TRUS/Bx 01/01/24 Pt admitted to [facility] 01/04/24 due to sepsis. Then later Tx'd [...] office advised pt to go to ER. [facility] 01/25/24 CC: burning w/urination. As well [...] malignancy. HGPIN left mid. Pt presented to [facility] on 01/04/24 due to prostatitis, sepsis following TRUS/BX Pt was admitted and given IV abx, and oral abx on Sunday at discharge. Returned to ER 01/10/24 due to thrombophlebitis due to IV location on arm. [facility] again 01/25/24 due to sepsis secondary to UTI. PSA was drawn at that time. Advised pt this was PSA level was elevated due to infection, level not of concern. -Repeat PSA in 10 mos, order at [facility] 2. History of sepsis (Z86.19: Personal history of other infectious and parasitic diseases) [facility] 01/25/24 due to burning w/ urination. [...] [facility] [address], [place] [address] [phone] Additional Instructions: 10 mos w/ PSA Cortney (more content not included)... Normal [facility] Comment on above: Result Comment: Elec tronically Signed By: Nadir GARCÍA MD\.br\Date and Time Signed: 03/17/24 14:03 EDT\.br\Electronically Co-Signed By: Louise Oh\.br\Date and Time Co-Signed: 03/17/24 14:01 EDT POCT URINALYSIS DIPSTICK AUT OMATED W/O SCOPon 02-11-2024 Amorphous sediment LM Ql (Urine sed) [facility] Appearance (U) clear [facility] Bacteria LM Ql (Urine sed) [facility] Bilirubin Ql (U) Negative [facility] Casts LM.LPF (Urine sed) [#/Area] [facility] Color (U) yellow [facility] Crystals LM Nom (Urine sed) [facility] Epithelial cells.squamous LM.HPF (Urine sed) [#/Area] [facility] Flow cytometry specialist review Parth (Unsp spec) [Interp] [facility] Glucose Auto test strip (U) [Mass/Vol] Negative mg/dL [facility] Interpretation and review of laboratory results Normal [facility] Ketones [Mass/Vol] Negative mg/dL [facility] Leukocyte esterase Qn (U) [facility] Leukocyte esterase Test strip Ql (U) Negative [facility] Nitrite Ql (U) Negative [facility] pH (U) 5.5 [pH] 5 - 7 [facility] Protein Ql (U) Negative mg/dL [facility] RBC LM.HPF (Urine sed) [#/Area] [facility] RBC Ql (U) trace [facility] Specific gravity (U) [Rel density] 1.030 1.001 - 1.035 [facility] Transitional cells LM Ql (Urine sed) [facility] Urobilinogen Qn (U) 0.2 [facility] WBC LM.HPF (Urine sed) [#/Area] [facility] Monitor Recordon 01-30-2024 Monitor Record [id number]#1. 00TIFF Normal [facility] CBC w/ Auto Diffon 4 Basophils/100 WBC (Bld) 0.4 % Normal 0.0-2.0 [facility] Comment on above: Performed By: #### 1 [id number], 9729665, 8036720, 81103525, 69974762, 7256181, 0935976, 8021700 #### [facility] [address] [place] [address] Basophils/Leukocytes Auto (Bld) [Pure # fraction] 0.0 E9/L Normal 0.0-0.2 [facility] Comment on above: Performed By: #### 1 4509796, 9723320, 5181240, 35706556, 03485368, 1300994, 7767996, 9517997 #### [facility] [address] [place] [address] Eosinophils (Bld) [#/Vol] 0.2 E9/L Normal 0.0-0.5 [facility] Comment on above: Performed By: #### 1 7111361, 0610221, 8218509, 04431055, 86305878, 8575478, 8274242, 3802840 #### [facility] [address] [place] [address] Eosinophils/100 WBC (Bld) 3.3 % Normal 0.0-8.0 [facility] Comment on above: Performed By: #### 1 8108495, 4954079, 9781413, 07269202, 33373234, 5357595, 8544435, 3523310 #### [facility] [address] [place] [address] Erythrocyte distribution width (RBC) [Ratio] 12.9 % Normal 10.9-14.2 [facility] Comment on above: Performed By: #### 1 2137236, 1893613, 3015080, 68452056, 38848809, 6208548, 6841437, 6323858 #### [facility] [address] [place] [address] Hematocrit (Bld) [Volume fraction] 37.2 % Low 37.7-49.0 [facility] Comment on above: Performed By: #### 1 9303031, 0897263, 4043344, 71316287, 39685809, 8755629, 2683966, 2106616 #### [facility] [address] [place] [address] Hemoglobin (Bld) [Mass/Vol] 12.7 g/dL Low 13.5-17.5 [facility] Comment on above: Performed By: #### 1 4976818, 3434291, 4211847, 52810140, 53379778, 6607228, 0050154, 4539750 #### [facility] [address] [place] [address] Lymphocytes (Bld) [#/Vol] 1.5 E9/L Normal 1.0-4.0 [facility] Comment on above: Performed By: #### 1 9286483, 4792461, 9595730, 27360808, 32650937, 9778160, 0244685, 1197984 #### [facility] [address] [place] [address] Lymphocytes/100 WBC (Bld) 23.6 % Normal 14.0-50.0 [facility] Comment on above: Performed By: #### 1 2416988, 1185284, 3219883, 41741622, 33547618, 6605865, 2617975, 2361088 #### [facility] [address] [place] [address] MCH (RBC) [Entitic mass] 31.6 pg Normal 27.0-34.0 [facility] Comment on above: Performed By: #### 1 4194828, 5299243, 2729454, 78440435, 81068705, 7266500, 9002106, 4757917 #### [facility] [address] [place] [address] MCHC (RBC) [Mass/Vol] 34.2 g/dL Normal 31.4-36.0 [facility] Comment on above: Performed By: #### 1 9906730, 9095579, 3857639, 14436011, 12513971, 6279671, 5362160, 5998966 #### [facility] [address] [place] [address] MCV (RBC) [Entitic vol] 92.5 fL Normal 80.0-100.0 [facility] Comment on above: Performed By: #### 1 7666352, 0476676, 7186619, 73383933, 01154834, 5668566, 0551717, 5517428 #### [facility] [address] [place] [address] Monocytes (Bld) [#/Vol] 0.6 E9/L Normal 0.2-1.0 [facility] Comment on above: Performed By: #### 1 9305658, 6060563, 3677532, 65646259, 44477669, 9773004, 6582171, 5658105 #### [facility] [address] [place], [place] [address] Neutrophils (Bld) [#/Vol] 4.0 E9/L Normal 2.0-7.5 [facility] Comment on above: Performed By: #### 1 3288777, 9058823, 5044211, 45671231, 45686015, 9771979, 3228172, 0562917 #### [facility] [address] [place] [address] Neutrophils/100 WBC (Bld) 63.2 % Normal 36.0-75.0 [facility] Comment on above: Performed By: #### 1 3208424, 8313456, 3846476, 42431993, 48302283, 6538016, 1015053, 4299630 #### [facility] [address] [place] [address] Platelet 132.0 E9/L Low 150.0-500.0 [facility] Comment on above: Performed By: #### 1 1755827, 7209515, 0655824, 14927959, 18143948, 0473705, 3156433, 8420030 #### [facility] [address] [place] [address] Platelet mean volume (Bld) [Entitic vol] 8.7 fL Normal 6.4-10.8 [facility] Comment on above: Performed By: #### 1 2272978, 3565789, 6930400, 56288507, 17054018, 2060082, 5494289, 5431173 #### [facility] [address] [place] [address] RBC (Bld) [#/Vol] 4.0 E12/L Low 4.3-5.9 [facility] Comment on above: Performed By: #### 1 7948303, 1297416, 7433699, 10543596, 83354782, 8967773, 2390399, 9590961 #### [facility] [address] [place] [address] WBC corrected for nucl RBC Auto (Bld) [#/Vol] 6.3 E9/L Normal 4.0-11.0 [facility] Comment on above: Performed By: #### 1 5242341, 9900972, 2136473, 93943093, 74418480, 7684547, 0190992, 1397136 #### [facility] [address] [place] [address] Consent for PICC lineon 01-17 Consent for PICC line [id number]#1. 00TIFF Normal [facility] Consultation Noteon 01-29-20 Consultation Note Patient: STEVE [...] At risk for falls / SNOMED CT 024081725 / Possible Problem added when Risk for Falls Careplan was initiated. BPH with urinary obstruction / SNOMED CT 6810161761 / Confirmed Chronic prostatitis / SNOMED CT 74924507 / Confirmed Acute glaucoma / SNOMED CT 25036570 / Confirmed Glaucoma / SNOMED CT 88572532 / Confirmed Heart murmur / SNOMED CT 877642202 / Confirmed High cholesterol / SNOMED CT 03548875 / Confirmed High cholesterol / SNOMED CT 10842717 / Confirmed Hyperlipemia / SNOMED CT 55278304 / Confirmed Knee pain, left / SNOMED CT 80411112 / Confirmed OAB (overactive bladder) / SNOMED CT 1153137556 / Confirmed Screen for colon cancer / SNOMED CT 347268933 / Confirmed Elevated PSA / SNOMED CT 8630109544 / Confirmed PIN (prostatic intraepithelial neoplasia) / SNOMED CT 915428866 / Confirmed Histories Past Medical History: Resolved Plantar fasciitis ([id number]): Resolved. Comments: 03/07/2013 EDT 12:51 Lyubov Marquez RN RIGHT FOOT Family History: Hyperlipidemia Father Mother Procedure history: TRUS/Bx ([id number]) on 01/01/2024 at 58 Years. Colonoscopy ([id number]) on 10/26/2023 at 58 Years. Arthroscopy of knee (284262835) on 05/07/2019 at 54 Years. Comments: 05/07/2019 [...] is unremar (more content not included)... Normal [facility] [place] Comment on above: Result Comment: Elec tronically Signed By: Nikita Rodney M.D\.br\Date and Time Signed: 01/29/24 13:22 EDT Discharge Instructionson Discharge Instructions [id number] TIFF Rylee Arellano [facility] Discharge Note-Nursingon Discharge Note-Nursing STEVE WILLIAMSON :1965 [...] Test Results None Pharmacy Information [facility] Discharge Instructions Please return to ER if symptoms change or worsen. Follow-up as instructed. Previously Scheduled Follow-Up Appointments Sunday 11:00 AM EDT With: Nadir GARCÍA MD Where: [facility] Discharge Note-Nursing STEVE WILLIAMSON :1965 Visit [...] Test Results None Pharmacy Information [facility] Discharge Instructions Please return to ER if symptoms change or worsen. Follow-up as instructed. Previously Scheduled Follow-Up Appointments Sunday 11:00 AM EDT With: Nadir GARCÍA MD Where: [facility] Normal [facility] HEMATOLOGYOrdered By: Tonny Reyes on 01-29-2024 Basophils/100 [...] Inpatient Clinical Summaryon 01-29-2024 Inpatient Clinical Summary [place] [address] Clinical Summary Person Information: Name: STEVE WILLIAMSON Age: 59 Years : 1965 Sex: Male PCP: DELPHINE BERRY NP Marital Status: Race: White Ethnicity: Non- or Language: [place] Visit Id: Visit Reason: [id number] -BURNING W/URINATION Speciality: Acuity: Enc Type: Inpatient Med Service: Medical Arrival: 01/25/2024 13:32:51 Discharge: Dispo Type: Admitted as IP to this Hosp Address: [address] [place] [address] [id number] Provider Notes: Diagnosis: Prostatitis; Sepsis; UTI (urinary [...] up: With: Address: When: Nikita Rodney [address] [facility] [place] [address] Business (1) Within 2 to 4 weeks With: Address: When: DELPHINE BERRY NP [address] [place] [address] Business (1) Within 5 to 7 days Comments: Call for followup appointment With: Address: When: RICKY LEVIN, Nadir Mercado, L [facility] [address], [place] [address] Within 2 weeks Comments: Call for followup appointment Type Location Start [facility] Office Visit [facility] Mandeep 08/01/2024 11:00 AM 08/01/2024 11:15 AM Confirmed Patient Education Information: PICC Home Care Guide; Prostatitis, [id number] Normal [facility] Inpatient Patient Summaryon 01-29-2024 Inpatient Patient Summary [address] [address] Patient Discharge Instructions PERSON INFORMATION [...] When: Nikita Rodney [address] [place] [address] Business (1) Within 2 to 4 weeks With: Address: When: KRISTI MENA, [address] [address] Business (1) Within 5 to 7 days Comments: Call for followup appointment With: Address: When: RICKY LEVIN, Nadir R, URL [facility] [address], [place] [address] Within 2 weeks Comments: Call for followup appointment In the event that this physician does not participate in your insurance network, please consult with your insurance company to find a nearby participating provider. Type Location Start [facility] Office Visit [facility] NOAH [place] 08/01/2024 11:00 AM 08/01/2024 11:15 [...] Tablets By Mouth every day. Pharmacy Information: [facility] , Mail Order Comment: PATIENT [...] the right pl (more content not included)... [facility] Insurance Correspondence Off ice01-29-2024 Insurance Correspondence Office [id number]. 00TIFF [facility] Interdisciplinary Note - Merrill e Manageron 01-29-2024 Interdisciplinary Note - Anesthetic Assistant CRM to room to discuss DC planning. Patient is from home with his spouse. [place] have transport [place]. Patient verified PCP, home DME and insurance. Patient is here with Fever, Chills, Body aches. Has Bacteremia. Patient is assigned to Dr Brown. Patient will be seen by ID on Sunday. Patient will need antibiotics at [place]. The script was sent and patient is 100% coverage. Patient was accepted to [facility] for RN. Patient denied any DME needs. Patient was provided CRM contact, white board updated. CRM following Patient will DC home later today, see Dr Dumont notes. [facility] Comment on above: Result Comment: Elec tronically Signed By: Elba Guo\.br\Date and Time Signed: 01/29/24 09:47 EDT Interdisciplinary Note - Merrill e Manageron 01-28-2024 Interdisciplinary Note - Anesthetic Assistant CRM to room to discuss DC planning. Patient is from home with his spouse. He [place] have transport at [place]. Patient verified PCP, home DME and insurance. Patient is here with Fever, Chills, Body aches. Has Bacteremia. Patient is assigned to Dr Brown. Patient will be seen by ID on Sunday. Patient will need antibiotics at [place]. He prefers HH route and he will learn administration. Patient denied any DME needs. Patient was provided CRM contact, white board updated. CRM following CRM placed HH referrals, will await acceptance 205 needs PICC and Rocephin 2000mg daily for [address] Brown, will send for IV med script will be sent today and await approval from and home infusion company [facility] has accepted, still waiting on final readiness from [facility] home infusion Normal [facility] Comment on above: Result Comment: Elec tronically Signed By: Elba Guo\.br\Date and Time Signed: 01/28/24 16:05 EDT Monitor Recordon 01-28-2024 Monitor Record [id number]#1. 00TIFF [facility] Monitor Record [id number]#1. 00TIFF [facility] Progress Note-Physicianon Progress Note-Physician Assessment/Plan Prostatitis (N41.9: [...] 0 Hospital Discharge Day > 30 Min 86746 PSA Total PSA Total PSA Total PSA Total PSA Total PSA Total Sbsq Hospital Care/Day Moderate 35 Minutes 48221 Sepsis (A41.9: Sepsis, unspecified organism) 2/2 above [...] Administration of drug, Saline, Heparin), 0 Normal [facility] Comment on [...] = na DAP = na Normal [facility] C Urineon 01-27-2024 Bacteria identified Cx Nom [...] Locations R1: This test was performed at: [facility], [address] [place] [address], [address]- , , Normal [facility] Comment on above: Performed By: #### 1 [id number], 9028525, 5729564, 89102153, 40788981, 6715760, 2521654, 2575703 #### [facility] [address] [place] [address] 28492 CBC w/ Auto Diffon 4 Basophils/100 WBC (Bld) 0.2 % Normal 0.0-2.0 [facility] Comment on above: Performed By: #### 2 486127 #### [facility] [address] [place] [address] 23509 Basophils/Leukocytes Auto (Bld) [Pure # fraction] 0.0 E9/L Normal 0.0-0.2 [facility] Comment on above: Performed By: #### 2 553048 #### [facility] [address] [place] [address] 15024 Eosinophils (Bld) [#/Vol] 0.1 E9/L Normal 0.0-0.5 [facility] Comment on above: Performed By: #### 2 753790 #### [facility] [address] [place] [address] Eosinophils/100 WBC (Bld) 1.0 % Normal 0.0-8.0 [facility] Comment on above: Performed By: #### 2 408343 #### [facility] [address] [place] [address] Erythrocyte distribution width (RBC) [Ratio] 12.8 % Normal 10.9-14.2 [facility] Comment on above: Performed By: #### 2 098781 #### [facility] [address] [place] [address]78 Hematocrit (Bld) [Volume fraction] 39.9 % Normal 37.7-49.0 [facility] Comment on above: Performed By: #### 2 022063 #### [facility] [address] [place] [address] Hemoglobin (Bld) [Mass/Vol] 13.3 g/dL Low 13.5-17.5 [facility] Comment on above: Performed By: #### 2 259019 #### [facility] [address] [place] [address] 87265 Lymphocytes (Bld) [#/Vol] 0.9 E9/L Low 1.0-4.0 [facility] Comment on above: Performed By: #### 2 760575 #### [facility] [address] [place] [address] Lymphocytes/100 WBC (Bld) 7.8 % Low 14.0-50.0 [facility] Comment on above: Performed By: #### 2 556606 #### [facility] [address] [place] [address] MCH (RBC) [Entitic mass] 31.0 pg Normal 27.0-34.0 [facility] Comment on above: Performed By: #### 2 543865 #### [facility] [address] [place] [address] MCHC (RBC) [Mass/Vol] 33.4 g/dL Normal 31.4-36.0 [facility] Comment on above: Performed By: #### 2 405068 #### [facility] [address] [place] [address] MCV (RBC) [Entitic vol] 92.9 fL Normal 80.0-100.0 [facility] Comment on above: Performed By: #### 2 569421 #### [facility] [address] [place] [address] Monocytes (Bld) [#/Vol] 1.0 E9/L Normal 0.2-1.0 [facility] Comment on above: Performed By: #### 2 682161 #### [facility] [address] [place] [address] Neutrophils (Bld) [#/Vol] 9.3 E9/L High 2.0-7.5 [facility] Comment on above: Performed By: #### 2 354149 #### [facility] [address] [place] [address] Neutrophils/100 WBC (Bld) 82.2 % High 36.0-75.0 [facility] Comment on above: Performed By: #### 2 315032 #### [facility] [address] [place] [address] Platelet 121.0 E9/L Low 150.0-500.0 [facility] Comment on above: Performed By: #### 2 940992 #### [facility] [address] [place] [address] Platelet mean volume (Bld) [Entitic vol] 8.2 fL Normal 6.4-10.8 [facility] Comment on above: Performed By: #### 2 240595 #### [facility] [address] [place] [address] RBC (Bld) [#/Vol] 4.3 E12/L Normal 4.3-5.9 [facility] Comment on above: Performed By: #### 2 119965 #### [facility] [address] [place] [address] WBC corrected for nucl RBC Auto (Bld) [#/Vol] 11.3 E9/L High 4.0-11.0 [facility] Comment on above: Performed By: #### 2 309893 #### [facility] [address] [place] [address] HEMATOLOGYOrdered By: SYSTEM SYSTEM on 01-27-2024 Basophils/100 [...] Remisol Heme Monitor Recordon 01-27-2024 Monitor Record [id number]#1. 00TIFF Normal [facility] Monitor Record [id number]#1. 00TIFF Normal [facility] Monitor Record [id number]#1. 00TIFF Normal [facility] Monitor Record [id number]#1. 00TIFF Normal [facility] Progress Note - Pharmacyon 0 01-27-2024 Progress Note - Pharmacy Vancomycin Phar nico to Dose Consult Note 1. Vanco Status: Vancomycin therapy has been discontinued. Vancomycin level(s) have been discontinued: Pharmacy vancomycin dosing service will sign off. Thank you for allowing us to participate in this patient's care. Please contact pharmacy if there are questions. Normal [facility] Progress Note-Physicianon Progress Note-Physician Basic Informatio n [...] Lymph Auto: 7.8 % Low (01/27/24 06:57:00) [place] Auto: 8.8 % (01/27/24 06:57:00) Eos Auto: 1 % (01/27/24 06:57:00) Basophil Auto: 0.2 % (01/27/24 06:57:00) Neutro Absolute: 9.3 E9/L High (01/27/24 06:57:00) Lymph Absolute: 0.9 E9/L Low (01/27/24 06:57:00) [place] Absolute: 1 E9/L (01/27/24 06:57:00) Eos Absolute: [...] 20 mg= 1 tab(s), Oral, Daily Normal [facility] Comment on above: Result Comment: Elec tronically Signed By: Christie LEVIN, Louisa\.br\Date and Time Signed: 01/27/24 11:17 EDT BMPon 01-26-2024 Anion gap [Moles/Vol] 12 mmol/L Normal 6-16 [facility] Comment on above: Performed By: #### 1 0878100, 1135558, 7812970, 83018058, 88024094, 0742512, 5197113, 5140281 #### [facility] [address] [place] [address] Calcium [Mass/Vol] 9.2 mg/dL Normal 8.9-11.1 [facility] Comment on above: Performed By: #### 1 3853454, 3915572, 9960582, 38094727, 96183880, 9307240, 8578933, 3510655 #### [facility] [address] [place] [address] Chloride [Moles/Vol] 104 mmol/L Normal 101-[address] [facility] Comment on above: Performed By: #### 1 9783963, 1145920, 9219636, 65041186, 43882812, 3255809, 5836294, 2436801 #### [facility] [address] [place] [address] CO2 [Moles/Vol] 27 mmol/L Normal 21-31 [facility] Comment on above: Performed By: #### 1 1127994, 2925120, 4006507, 61592564, 46029412, 8520038, 3074350, 5175997 #### [facility] [address] [place] [address] Creatinine [Mass/Vol] 0.9 mg/dL Normal 0.5-1.3 [facility] Comment on above: Performed By: #### 1 4804695, 8934760, 8016519, 28120250, 50013924, 3150759, 2362655, 9247164 #### [facility] [address] [place] [address] Glucose [Mass/Vol] 100 mg/dL Normal 55-199 [facility] Comment on above: Performed By: #### 1 6860992, 1609839, 2784755, 80440564, 27150065, 1295678, 3611473, 2667419 #### [facility] [address] [place] [address] Potassium [Moles/Vol] 4.0 mmol/L Normal 3.5-5.3 [facility] Comment on above: Performed By: #### 1 8965654, 3821008, 1979223, 45654713, 13053938, 7356384, 1878829, 2948498 #### [facility] [address] [place] [address] Sodium [Moles/Vol] 139 mmol/L Normal 135-145 [facility] Comment on above: Performed By: #### 1 2245382, 8680458, 8492227, 08619581, 35809996, 8040041, 8380019, 4142363 #### [facility] [address] [place] [address] Urea nitrogen [Mass/Vol] 12 mg/dL Normal 5-21 [facility] Comment on above: Performed By: #### 1 0441134, 6181775, 3600723, 74251896, 58479389, 5074721, 6323988, 7706076 #### [facility] [address] [place] [address] Urea nitrogen/Creatinine [Mass ratio] 13 No Units Normal 10-20 [facility] Comment on above: Performed By: #### 1 0621420, 8026580, 8729843, 62354522, 94678430, 8783751, 9290611, 5486401 #### [facility] [address] [place] [address] 42226 CBC w/ Auto Diffon 4 Basophils/100 WBC (Bld) 0.1 % Normal 0.0-2.0 [facility] Comment on above: Performed By: #### 1 2442820, 4122457, 8176216, 34985441, 64230014, 1784022, 9998930, 1431765 #### [facility] [address] [place] [address] Basophils/Leukocytes Auto (Bld) [Pure # fraction] 0.0 E9/L Normal 0.0-0.2 [facility] Comment on above: Performed By: #### 1 5211313, 9656279, 9502843, 84571342, 93003982, 7551947, 2280797, 2108140 #### [facility] [address] [place] [address] Eosinophils (Bld) [#/Vol] 0.0 E9/L Normal 0.0-0.5 [facility] Comment on above: Performed By: #### 1 4537853, 7957211, 1385975, 10534646, 49542198, 4683678, 6390141, 4145029 #### [facility] [address] [place] [address]58[address] Eosinophils/100 WBC (Bld) 0.3 % Normal 0.0-8.0 [facility] Comment on above: Performed By: #### 1 1153306, 3955616, 4184735, 28937690, 81081279, 7526927, 4126715, 1410032 #### [facility] [address] [place] [address] 425[address] Erythrocyte distribution width (RBC) [Ratio] 12.9 % Normal 10.9-14.2 [facility] Comment on above: Performed By: #### 1 3201279, 6326816, 5101267, 17921076, 04365930, 0472985, 7724394, 5610137 #### [facility] [address] [place] [address] Hematocrit (Bld) [Volume fraction] 43.0 % Normal 37.7-49.0 [facility] Comment on above: Performed By: #### 1 3377258, 3124804, 2265610, 83390823, 46577236, 0175600, 9895601, 2455087 #### [facility] [address] [place] [address] Hemoglobin (Bld) [Mass/Vol] 14.3 g/dL Normal 13.5-17.5 [facility] Comment on above: Performed By: #### 1 1790288, 8411498, 0169527, 18184034, 35697257, 7915165, 8799825, 1095368 #### [facility] [address] [place] [address] 312[address] Lymphocytes (Bld) [#/Vol] 1.3 E9/L Normal 1.0-4.0 [facility] Comment on above: Performed By: #### 1 7610918, 0811642, 4807353, 16045878, 03893017, 3036937, 3298907, 5991471 #### [facility] [address] [place] [address] Lymphocytes/100 WBC (Bld) 8.0 % Low 14.0-50.0 [facility] Comment on above: Performed By: #### 1 2076465, 9997596, 2266141, 20168264, 34088425, 8215600, 3650870, 9885106 #### [facility] [address] [place] [address] 528[address] MCH (RBC) [Entitic mass] 31.0 pg Normal 27.0-34.0 [facility] Comment on above: Performed By: #### 1 2834510, 4828535, 4528045, 94662655, 16111546, 6182521, 8518997, 2868309 #### [facility] [address] [place] [address] MCHC (RBC) [Mass/Vol] 33.3 g/dL Normal 31.4-36.0 [facility] Comment on above: Performed By: #### 1 9083249, 8071871, 6530288, 03760722, 26960826, 9089476, 5273739, 6254490 #### [facility] [address] [place] [address] MCV (RBC) [Entitic vol] 93.1 fL Normal 80.0-100.0 [facility] Comment on above: Performed By: #### 1 3062244, 4314688, 4531154, 86074253, 66069219, 4647823, 5737983, 6442897 #### [facility] [address] [place] [address] 14642 Monocytes (Bld) [#/Vol] 1.2 E9/L High 0.2-1.0 [facility] Comment on above: Performed By: #### 1 7951217, 1891635, 0706675, 98102960, 18919158, 0045693, 4825625, 9298793 #### [facility] [address] [place] [address] 35739 Neutrophils (Bld) [#/Vol] 13.6 E9/L High 2.0-7.5 [facility] Comment on above: Performed By: #### 1 3847926, 7080078, 1855383, 38225168, 52235332, 3975075, 4249974, 6859759 #### [facility] [address] [place] [address] 74799 Neutrophils/100 WBC (Bld) 84.4 % High 36.0-75.0 [facility] Comment on above: Performed By: #### 1 5471234, 0217460, 2648488, 39809591, 91581434, 6687419, 7966165, 3227345 #### [facility] [address] [place] [address] 53249 Platelet 140.0 E9/L Low 150.0-500.0 [facility] Comment on above: Performed By: #### 1 4709854, 8148578, 7848515, 44164135, 73932474, 4555546, 6883211, 1246591 #### [facility] [address] [place] [address] Platelet mean volume (Bld) [Entitic vol] 8.3 fL Normal 6.4-10.8 [facility] Comment on above: Performed By: #### 1 6615349, 2871093, 1423597, 50288311, 51368595, 1719117, 9956730, 9356552 #### [facility] [address] [place] [address] RBC (Bld) [#/Vol] 4.6 E12/L Normal 4.3-5.9 [facility] Comment on above: Performed By: #### 1 6345062, 7815862, 6682751, 98927436, 80456675, 9525888, 8480135, 4633949 #### [facility] [address] [place] [address] WBC corrected for nucl RBC Auto (Bld) [#/Vol] 16.1 E9/L High 4.0-11.0 [facility] Comment on above: Result Comment: Slid e review performed Performed By: #### 1 9947657, 5072866, 7419920, 37093768, 99838184, 5192739, 1903191, 2362011 #### [facility] [address] [place] [address] CHEMISTRYOrdered By: SYSTEM SYSTEM on 01-26-2024 Anion [...] Number and Complexity of Problems Differential Diagnosis: [facility] Data External documents reviewed: [] My [...] 1000 mL 1,000 mL, 1000 mL, IV [id number] [F] 1000 mg + GenDil 100 mL, [...] Prescription List (more content not included)... Normal [facility] Comment on [...] Correspondence Off iceon 01-26-2024 Insurance Correspondence Office [id number]#1. 00TIFF Normal [facility] Magnesiumon 01-26-2024 Magnesium [Mass/Vol] 1.8 mg/dL Normal 1.3-2.[address] [facility] Comment on above: Performed By: #### 1 4325986, 5510317, 0097213, 02526341, 70764611, 4099027, 2986120, 7380785 #### [facility] [address] [place] [address] Monitor Recordon 01-26-2024 Monitor Record [id number]#1. 00TIFF Normal [facility] Monitor Record [id number]#1. 00TIFF Normal [facility] Progress Note-Physicianon Progress Note-Physician Basic Informatio n [...] Lymph Auto: 8 % Low (01/26/24 06:23:00) [place] Auto: 7.2 % (01/26/24 06:23:00) Eos Auto: 0.3 % (01/26/24 06:23:00) Basophil Auto: 0.1 % (01/26/24 06:23:00) Neutro Absolute: 13.6 E9/L High (01/26/24 06:23:00) Lymph Absolute: 1.3 E9/L (01/26/24 06:23:00) [place] Absolute: 1.2 E9/L High (01/26/24 06:23:00) Eos [...] 40 mg (more content not included)... Normal [facility] Comment on above: Result Comment: Elec tronically Signed By: Christie LEVIN, Louisa\.br\Date and Time Signed: 01/26/24 11:09 EST eGFRon 01-26-2024 eGFR 100 mL/min/1.73 m2 Normal >=59 [facility] Comment on above: Order Comment: Order added by Discern Expert. Performed By: #### 1 9401957, 4309396, 8453982, 19625111, 50284868, 4282387, 6236229, 9442905 #### [facility] [address] [place] [address] AMPICILLIN:SUSC:PT:ISOLATE:O RDQN:MICOrdered By: Maryjo Ventura on 01-25-2024 Ampicillin EUGENE [Susc] Escherichia coli In 1 of 2 blood culture bottles drawn. Isolated from aerobic bottle Preliminary gram stain result of gram negative rods given to Dr. Soriano 01/26/2024 10:57:52 by [facility] AMPICILLIN:SUSC:PT:ISOLATE:O RDQN:MICOrdered By: Tammy Krishna on 01-25-2024 Ampicillin EUGENE [Susc] >100,000 cfu/ml Escherichia coli [facility] Ampicillin EUGENE [Susc]Ordered By: Maryjo Ventura on 01-25-2024 Escherichia coli Escherichia coli [facility] Ampicillin EUGENE [Susc]Ordered By: Tammy Krishna on 01-25-2024 Escherichia coli Escherichia coli [facility] BMPon 01-25-2024 Anion gap [Moles/Vol] 13 mmol/L Normal 6-16 [facility] Comment on above: Performed By: #### 1 3563329, 0856927, 4375341, 49401262, 71923695, 2186567, 6728105, 5398592 #### [facility] [address] [place] [address] Calcium [Mass/Vol] 9.8 mg/dL Normal 8.9-11.1 [facility] Comment on above: Performed By: #### 1 7535151, 4047915, 4160611, 57694980, 85648911, 0439219, 5068471, 6409050 #### [facility] [address] [place] [address] Chloride [Moles/Vol] 100 mmol/L Low 101-111 [facility] Comment on above: Performed By: #### 1 7300424, 7200691, 6553291, 80703175, 45150081, 3542078, 0691019, 7122726 #### [facility] [address] [place] [address] CO2 [Moles/Vol] 28 mmol/L Normal 21-31 [facility] Comment on above: Performed By: #### 1 6435205, 8651181, 8326936, 77218615, 03750104, 0423931, 3433427, 1684694 #### [facility] [address] [place] [address] Creatinine [Mass/Vol] 0.9 mg/dL Normal 0.5-1.3 [facility] Comment on above: Performed By: #### 1 9156313, 0764576, 1444723, 25727360, 66577910, 7641318, 5292621, 5424086 #### [facility] [address] [place] [address] Glucose [Mass/Vol] 95 mg/dL Normal 55-199 [facility] Comment on above: Performed By: #### 1 7803503, 7909169, 6096173, 42064559, 08369972, 4192881, 8678047, 9389296 #### [facility] [address] [place] [address] Potassium [Moles/Vol] 3.9 mmol/L Normal 3.5-5.3 [facility] Comment on above: Performed By: #### 1 7974093, 9872750, 0575101, 17047431, 71581371, 7165267, 7380088, 2632528 #### [facility] [address] [place] [address] Sodium [Moles/Vol] 137 mmol/L Normal 135-145 [facility] Comment on above: Performed By: #### 1 0447270, 9673118, 7230999, 82133152, 02200752, 5162387, 4347263, 7612899 #### [facility] [address] [place], [place] [address] Urea nitrogen [Mass/Vol] 17 mg/dL Normal 5-21 [facility] Comment on above: Performed By: #### 1 9662846, 3581383, 9586530, 54809294, 40445727, 0713392, 8890084, 5378104 #### [facility] [address] [place], [place] [address] Urea nitrogen/Creatinine [Mass ratio] 19 No Units Normal 10-20 [facility] Comment on above: Performed By: #### 1 0880196, 8022491, 6716855, 47892551, 77411271, 2494259, 3020074, 8707285 #### [facility] [address] [place] [address] CBC w/ Auto Diffon 4 Basophils/100 WBC (Bld) 0.1 % Normal 0.0-2.0 [facility] Comment on above: Performed By: #### 1 3390716, 3621176, 3657678, 54924863, 60892448, 8712990, 7592542, 0714280 #### [facility] [address] [place] [address] Basophils/Leukocytes Auto (Bld) [Pure # fraction] 0.0 E9/L Normal 0.0-0.2 [facility] Comment on above: Performed By: #### 1 4844903, 8523691, 1444079, 82129981, 46922245, 5251229, 2867390, 1997080 #### [facility] [address] [place] [address] Eosinophils (Bld) [#/Vol] 0.0 E9/L Normal 0.0-0.5 [facility] Comment on above: Performed By: #### 1 5479444, 5801041, 1487172, 81998701, 12412422, 8575157, 7143053, 4890904 #### [facility] [address] [place] [address] Eosinophils/100 WBC (Bld) 0.2 % Normal 0.0-8.0 [facility] Comment on above: Performed By: #### 1 0479278, 3324907, 9324289, 57242651, 32747704, 5853930, 8111778, 5867675 #### [facility] [address] [place] [address] 82514 Lymphocytes (Bld) [#/Vol] 0.8 E9/L Low 1.0-4.0 [facility] Comment on above: Performed By: #### 1 6401955, 7704715, 6550599, 05005142, 59175390, 4220984, 7105280, 8155216 #### [facility] [address] [place] [address] 10058 Lymphocytes/100 WBC (Bld) 5.0 % Low 14.0-50.0 [facility] Comment on above: Performed By: #### 1 1445240, 9648197, 7530491, 42298359, 34998299, 4923032, 5200409, 0737595 #### [facility] [address] [place] [address] 67410 Monocytes (Bld) [#/Vol] 1.1 E9/L High 0.2-1.0 [facility] Comment on above: Performed By: #### 1 5777429, 8230531, 3050624, 55303708, 57230192, 0599114, 8766175, 8217031 #### [facility] [address] [place] [address] 54000 Neutrophils (Bld) [#/Vol] 13.8 E9/L High 2.0-7.5 [facility] Comment on above: Performed By: #### 1 2156982, 6037226, 9992400, 38361175, 79922911, 9764161, 1983677, 2561390 #### [facility] [address] [place] [address] 90660 Neutrophils/100 WBC (Bld) 87.9 % High 36.0-75.0 [facility] Comment on above: Performed By: #### 1 4743546, 7681369, 6018374, 30103303, 73396151, 8882692, 8973313, 4625092 #### [facility] [address] [place] [address] 93027 Erythrocyte distribution width (RBC) [Ratio] 12.8 % Normal 10.9-14.2 [facility] Comment on above: Performed By: #### 1 8812073, 0852387, 5924502, 17109563, 80002980, 8456899, 8391350, 7408265 #### [facility] [address] [place] [address] 88155 Hematocrit (Bld) [Volume fraction] 42.9 % Normal 37.7-49.0 [facility] Comment on above: Performed By: #### 1 9195045, 5197650, 6364050, 04094545, 07353724, 4384226, 1499342, 9110826 #### [facility] [address] [place] [address] 34995 Hemoglobin (Bld) [Mass/Vol] 14.6 g/dL Normal 13.5-17.5 [facility] Comment on above: Performed By: #### 1 2133738, 7591515, 0340566, 25627555, 70387217, 3825285, 1634109, 0805990 #### [facility] [address] [place] [address] MCH (RBC) [Entitic mass] 31.6 pg Normal 27.0-34.0 [facility] Comment on above: Performed By: #### 1 7380934, 3686064, 7316707, 18011647, 30637995, 9738482, 4807880, 3600895 #### [facility] [address] 9828657 MCHC (RBC) [Mass/Vol] 34.0 g/dL Normal 31.4-36.0 [facility] Comment on above: Performed By: #### 1 0491264, 9931750, 2709389, 87202276, 57789024, 6223372, 9214092, 4289248 #### [facility] [address] [place] [address] 73847 MCV (RBC) [Entitic vol] 92.8 fL Normal 80.0-100.0 [facility] Comment on above: Performed By: #### 1 0120588, 2126106, 3205518, 39144934, 36141977, 5988631, 3778186, 2879162 #### [facility] [address] [place] [address] 70338 Platelet mean volume (Bld) [Entitic vol] 8.6 fL Normal 6.4-10.8 [facility] Comment on above: Performed By: #### 1 1264148, 2055307, 8115284, 20150279, 85707843, 8098237, 1828001, 6762329 #### [facility] [address] [place] [address] 94317 Platelets (Bld) [#/Vol] 143.0 E9/L Low 150.0-500.0 [facility] Comment on above: Performed By: #### 1 7247982, 9211463, 2010208, 53676564, 90982905, 9903230, 2102597, 8325510 #### [facility] [address] [place] [address] RBC (Bld) [#/Vol] 4.6 E12/L Normal 4.3-5.9 [facility] Comment on above: Performed By: #### 1 8892966, 8888863, 8045338, 98128219, 93675424, 4416993, 6165861, 7750847 #### [facility] [address] [place] [address] WBC corrected for nucl RBC Auto (Bld) [#/Vol] 15.7 E9/L High 4.0-11.0 [facility] Comment on above: Performed By: #### 1 2528466, 3849159, 8220488, 79034239, 55585830, 8144428, 3927079, 6874674 #### [facility] [address] [place] [address] CHEMISTRYOrdered By: SYSTEM SYSTEM on 01-25-2024 Lactic [...] methods and specificity. Values obtained with different associate property manager's assays cannot be used interchangeably. The methodology used to obtain this result was chemiluminescence using Abby Breezeplay's Access Hybritech PSA reagent and Access Hybritech [...] for this result was chemiluminescence using Abby Breezeplay's Access Hybritech PSA reagent. Protein [Mass/Vol] 7.0 [...] High Sensitivity Troponin I Instructions For Use, Victoria Plumb, June 2018) CMPon 01-25-2024 Albumin [Mass/Vol] 4.6 g/dL Normal 3.3-5.0 [facility] Comment on above: Performed By: #### 1 3703504, 9078308, 7101658, 50784556, 56668521, 3391426, 9658899, 8714235 #### [facility] [address] [place] [address] 98433 Albumin/Globulin (S) [Mass conc ratio] 1.9 Normal 1.1-2.2 [facility] Comment on above: Performed By: #### 1 3800571, 5082528, 0468595, 83091769, 95333987, 8661957, 1877141, 2283719 #### [facility] [address] [place] [address] ALP [Catalytic activity/Vol] 55 Int._Unit/L Normal 21-98 [facility] Comment on above: Performed By: #### 1 5419625, 6487050, 6238108, 46029541, 03900976, 5531414, 3563127, 2065135 #### [facility] [address] [place] [address] ALT No additional P-5'-P [Catalytic activity/Vol] 21 Int._Unit/L Normal 6-46 [facility] Comment on above: Performed By: #### 1 3256799, 7678003, 0623854, 09830796, 80204968, 8650462, 2085327, 7926854 #### [facility] [address] 9828657 AST [Catalytic activity/Vol] 18 Int._Unit/L Normal 5-43 [facility] Comment on above: Performed By: #### 1 9010269, 6664259, 5487575, 55860021, 53449138, 5928758, 9233836, 9317075 #### [facility] [address] [place] [address] Bilirubin [Mass/Vol] 0.9 mg/dL Normal 0.0-1.1 [facility] Comment on above: Performed By: #### 1 8691564, 8997755, 4356491, 31525574, 36524754, 7967692, 3309696, 4924329 #### [facility] [address] [place] [address] Globulin (S) [Mass/Vol] 2.4 g/dL Normal 1.4-4.0 [facility] Comment on above: Performed By: #### 1 4493671, 1868390, 2341103, 24832116, 17028867, 3660548, 7038369, 7976491 #### [facility] [address] [place] [address] Protein [Mass/Vol] 7.0 g/dL Normal 6.0-7.8 [facility] Comment on above: Performed By: #### 1 8711805, 7523287, 2430163, 28172416, 08794541, 2602405, 5885346, 1025494 #### [facility] [address] [place] [address] COAGULATIONOrdered By: Leticia King on 01-25-2024 aPTT Coag (PPP) [Time] 30.5 s Normal 25.1 - 36.5 second(s) [facility] Auto Coag Comment on above: Interpretive Data: [...] the same coagulation reagent and instrumentation as [facility]. Currently there are no coagulation studies available worldwide for children to 14 days, and no normal ranges. Heparin therapeutic range (represented by Anti-Factor Xa activity of 0.2 - 0.4 U/mL) corresponds to PTT of 56.6 - 109.0 sec. INR Coag (PPP) [Relative time] 1.01 {INR} Invalid Interpretation Code [facility] Comment on above: Interpretive Data: I NR results are specifically intended to assess patients stabilized on long-term Anticoagulation therapy suggested INR s Less Intensive Anticoagulation 2.0 3.0 Conventional Range 3.0 4.5 PT Coag (PPP) [Time] 11.3 s Normal 9.4 - 1 2.5 second(s) [facility] Comment on above: Interpretive Data: [...] the same coagulation reagent and instrumentation as [facility]. Currently there are no coagulation studies available [...] 370 Contrast amount in ml's: 100 Normal [facility] Consent for Treatmenton Consent for Treatment [id number] 4030 [id number] 0TIFF Normal [facility] Consent for Treatment [id number] 4030 [id number] 0TIFF Normal [facility] ED Clinical Summaryon 2023 ED Clinical Summary [place] [id number] ED Clinical Summary Person Information Name: STEEV WILLIAMSON [facility] Age: 59 Years : 1965 Sex: Male Language: [place]ese PCP: DELPHINE BERRY NP Marital Status: Visit Id: Visit Reason: [id number] -BURNING W/URINATION Speciality: Acuity: 3 Enc Type: Inpatient Med Service: Emergency Arrival: 01/25/2024 13:32:51 Discharge: LOS: 000 08:29 Checkin: 01/25/2024 13:32:51 Checkout: 01/25/2024 22:01:01 Dispo Type: Admitted as IP to this [facility] EVENTS: Event Name Event Status Request [...] 01/25/2024 20:18:48 01/25/2024 20:18:48 01/25/2024 20:18:48 ADDRESS: [address] [place] [id number] PHYS DOC NOTES: MEDICAL INFORMATION: Prescriptions Given: [...] Prostatitis; Sepsis; UTI (urinary tract infection) Normal [facility] ED Patient Education Noteon 01-25-2024 ED Patient Education Note Normal [facility] ED Patient Summaryon ED Patient Summary [place] [address] Patient Discharge Instructions Person Information Name: STEVE WILLIAMSON Age: 59 Years Arrival Date: 01/25/2024 13:32:51 Discharge Diagnosis: Prostatitis; Sepsis; UTI (urinary tract infection) Primary Care Physician: DELPHINE BERRY NP Provider Information Primary Provider: Scotty Martinez DO Advanced Needle Punch Machine Operator Helper:None The exam and treatment you received in the Emergency Department were for an urgent problem and are not intended as complete care. It is important that you follow up with a doctor, nurse practitioner, or physician?s family assistant for ongoing care. If your symptoms [...] opioids can be used to help relieve mkyfpruw-mt-ozmfwl pain and are often prescribed following a [...] be struggling with addiction, tell your health medicare compliance auditor and ask for guidance or call [facility]?S PriceAdvice Helpline at [phone]. z Source: [place] Department of Health and Human Services/Center for Disease Control & Prevention [facility] Medications Given: Medi (more content not included)... Normal [facility] - Chemistry and C hemistry - [...] Lactic Acid Lvl 1.5 mmol/L Normal 0.5-2.2 [facility] Comment on above: Performed By: #### 2 508433 ####[facility] [id number] [place] [address] Lactic Acid Lvl 1.8 mmol/L Normal 0.5-2.2 [facility] Comment on above: Performed By: #### 1 1746078, 7841241, 8286356, 79427109, 58876382, 3451657, 7773269, 0617535 #### [facility] [address] [place] [address] No Panel InformationOrdered By: [facility] on 01-25-2024 Blood Culture Charcoal No growth at 4 da ys. Final to follow at 7 days. [facility] PSA Free & Totalon Free PSA/Total PSA [Mass fraction] 25.5 % Normal >=25.0 [facility] Comment on above: Performed By: #### 1 1248615, 8406439, 5466266, 49113874, 49287568, 5795496, 0688416, 3762556 ####[facility] [id number] [place] [address] Prostate specific Ag [Mass/Vol] 15.3 ng/mL High 0.1-3.5 [facility] Comment on above: Result Comment: The concentration of PSA determined by different manufacturers can vary due to differences in assay methods and reagent specificity. Values obtained from different assay methods cannot be used interchangeably. The methodology used for this result was chemiluminescence using Victoria Plumb's Access Hybritech PSA reagent. Performed By: #### 1 3745277, 4975175, 0644376, 69704873, 47588385, 0299327, 2376202, 9601988 ####[facility] [id number] [place] [address] Free PSA [Mass/Vol] 3.9 ng/mL Invalid Interpretation Code [facility] Comment on above: Result Comment: The concentration of free PSA and total PSA determined with assays from different manufacturers can vary due to differences in assay methods and specificity. Values obtained with different associate property manager's assays cannot be used interchangeably. The methodology used to obtain this result was chemiluminescence using Abby Breezeplay's Access Hybritech PSA reagent and Access Hybritech free PSA reagent. Performed By: #### 1 1526476, 8318699, 5247778, 94144041, 45988414, 9184979, 9330865, 5933036 ####[facility] [id number] [place] [address] PT & PTTon 01-25-2024 aPTT Coag (PPP) [Time] 30.5 second(s) Normal 25.1-36.5 [facility] Comment on above: Result Comment: Para meter [...] the same coagulation reagent and instrumentation as [facility]. Currently there are no coagulation studies available worldwide for children to 14 days, and no normal ranges. Heparin therapeutic range (represented by Anti-Factor Xa activity of 0.2 - 0.4 U/mL) corresponds to PTT of 56.6 - 109.0 sec. Performed By: #### 1 8473950, 4503305, 9407177, 73869062, 46352798, 9854690, 4180586, 2318157 #### [facility] [address] [place] [address] INR Coag (PPP) [Relative time] 1.01 {INR} Invalid Interpretation Code [facility] Comment on above: Result Comment: INR results are specifically intended to assess patients stabilized on long-term Anticoagulation therapy suggested INR?s ?Less Intensive Anticoagulation? 2.0 ? 3.0 Conventional Range 3.0 ? 4.5 Performed By: #### 1 0216220, 2147953, 1243693, 26023674, 19362322, 3942391, 2970252, 5276116 #### [facility] [address] [place] [address] PT Coag (PPP) [Time] 11.3 second(s) Normal 9.4-12.5 [facility] Comment on above: Result Comment: 15 d [...] the same coagulation reagent and instrumentation as [facility]. Currently there are no coagulation studies available worldwide for children to 14 days, and no normal ranges. Performed By: #### 1 5444204, 8896811, 6280082, 72812160, 57271621, 8065174, 1658363, 8690528 #### [facility] [address] [place] [address] Progress Note - Pharmacyon 0 01-25-2024 Progress [...] questions please contact the pharmacy at extension [phone]. Age: 59 Years Allergies: penicillins Weight: Last [...] Lymph Auto: 5 % Low (01/25/24 14:51:00) [place] Auto: 6.8 % (01/25/24 14:51:00) Eos Auto: 0.2 % (01/25/24 14:51:00) Basophil Auto: 0.1 % (01/25/24 14:51:00) Neutro Absolute: 13.8 E9/L High (01/25/24 14:51:00) Lymph Absolute: 0.8 E9/L Low (01/25/24 14:51:00) [place] Absolute: 1.1 E9/L High (01/25/24 14:51:00) Eos [...] UA Bacteria: 1+ Abnormal (01/25/24 14:05:00) Normal [facility] Troponinon 01-25-2024 Troponin 5.00 pg/mL Low 15.90-38.40 [facility] Comment on above: Result Comment: The 95% CI (Confidence Interval) PPV (Positive Predictive Value) for myocardial infarction in females is 38 pg/mL, in males 51 pg/mL. The results should be used in conjunction with clinical conditions of myocardial infarction. (Access High Sensitivity Troponin I Instructions For Use, Abby Breezeplay, June 2018) Performed By: #### 1 8188848, 3728483, 5783586, 60387280, 04470847, 7065952, 9169826, 0279468 #### [facility] [address] [place] [address] UA With Cult Reflexon 2023 Bacteria LM Ql (Urine sed) 1+ /HPF Abnormal Trace [facility] Comment on above: Performed By: #### 1 7410862, 2678885, 1724207, 81543082, 80020868, 4308512, 3111973, 1398264 #### [facility] [address] [place] [address] Bilirubin Ql (U) Negative Normal Negative [facility] Comment on above: Performed By: #### 1 8239032, 1656043, 7017248, 56234927, 12669136, 2978951, 6220898, 0552089 #### [facility] [address] [place] [address] Clarity (U) CLOUDY Abnormal Clear [facility] Comment on above: Performed By: #### 1 8983398, 6368734, 2913453, 16016398, 58558546, 9601955, 0111261, 8180320 #### [facility] [address] [place] [address] Color (U) STRAW Invalid Interpretation Code [facility] Comment on above: Performed By: #### 1 3050854, 4634986, 7929835, 28292554, 85924993, 9822674, 3996496, 4408538 #### [facility] [address] [place] [address] Epithelial cells.squamous LM.HPF (Urine sed) [#/Area] 0-2 Normal 0-2 [facility] Comment on above: Performed By: #### 1 7000086, 0997717, 1220229, 82433928, 11266488, 7646833, 3536047, 5040985 #### [facility] [address] [place] [address] Glucose Test strip (U) [Mass/Vol] Negative Normal Negative [facility] Comment on above: Performed By: #### 1 8168435, 8253488, 8858676, 34364126, 91826127, 2986332, 5345285, 1237465 #### [facility] [address] [place] [address] Hemoglobin Ql (U) 3+ Abnormal Negative [facility] Comment on above: Performed By: #### 1 2915949, 2852029, 8191054, 99768490, 00054179, 1959900, 8754043, 5234959 #### [facility] [address] [place] [address] Ketones (U) [Mass/Vol] Negative Normal Negative [facility] Comment on above: Performed By: #### 1 2197982, 1248596, 4671479, 50030499, 35755074, 8985349, 1950854, 3929392 #### [facility] [address] [place] [address] Bangs.plasma/Bangs.R BC (Bld) [Mass ratio] 21-30 Abnormal 0-3 [facility] Comment on above: Performed By: #### 1 5746821, 7169766, 3118496, 88904319, 46253299, 6817954, 5869828, 4105044 #### [facility] [address] [place] [address] Nitrite Ql (U) Negative Normal Negative [facility] Comment on above: Performed By: #### 1 3542891, 1761287, 5694739, 12690639, 30034905, 5756431, 2755744, 0107055 #### [facility] [address] [place] [address] pH (U) 6.0 [pH] Invalid Interpretation Code 5.0-9.0 [facility] Comment on above: Performed By: #### 1 8058200, 1403373, 3177377, 14828849, 64146255, 2008507, 6394914, 5690396 #### [facility] [address] [place] [address] Protein (U) [Mass/Vol] 1+ Abnormal Negative [facility] Comment on above: Performed By: #### 1 9784718, 1211402, 0514446, 66774904, 27507906, 7864948, 6635611, 3255752 #### [facility] [address] [place] [address] 212[address] Specific gravity (U) [Rel density] <=1.005 Invalid Interpretation Code 1.005-1.030 [facility] Comment on above: Performed By: #### 1 2847142, 2968667, 7953511, 43307973, 36297484, 8218664, 2445496, 0344055 #### [facility] [address] [place] [address] Type of Urine collection method Clean Catch Normal [facility] Comment on above: Performed By: #### 1 0269909, 9022380, 4163146, 05797885, 91538641, 7132750, 9639352, 1281912 #### [facility] [address] [place] [address] Urobilinogen Qn (U) 0.2 {Kishan'U}/dL Normal 0.0-1.0 [facility] Comment on above: Performed By: #### 1 3059672, 1385460, 9357034, 24586598, 58213559, 3331753, 8875921, 4476734 #### [facility] [address] [place] [address] WBC Auto Ql (U) 3+ Abnormal Negative [facility] Comment on above: Performed By: #### 1 2267444, 0766090, 5039345, 51845369, 02796444, 9485906, 6360317, 6647994 #### [facility] [address] [place] [address] WBC LM.HPF (Urine sed) [#/Area] /[HPF] Abnormal 0-5 [facility] Comment on above: Performed By: #### 1 6475862, 4088792, 6148711, 73346799, 96482033, 4579777, 0811297, 5643670 #### [facility] [address] [place] [address] URINALYSISOrdered By: Lizzy Rice on 01-25-2024 Bacteria [...] PM) Normal Negative [facility] UA Auto SS Bangs.plasma/Bangs.R BC (Bld) [Mass ratio] 21-30 /HPF Invalid Interpretation Code 0-3/HPF [facility] UA Auto SS Nitrite Ql (U) Negative (01/25/24 2:05 PM) Normal Negative [facility] UA Auto SS pH (U) 6.0 *NA* (3/8/24 2:05 PM) Invalid Interpretation Code 5.0 - 9.0 [facility] UA Auto SS Protein (U) [Mass/Vol] 1+ *ABN* (01/25/24 2:05 PM) Invalid Interpretation Code Negative [facility] UA Auto SS Specific gravity (U) [Rel density] <=1.005 *NA* (01/25/24 2:05 PM) Invalid Interpretation Code 1.005 - 1.030 [facility] UA Auto SS UA Spec Desc Clean Catch (01/25/24 2:05 PM) Normal [facility] UA Auto SS Urobilinogen Qn (U) 0.4477915 {Kishan'U}/dL Normal 0.0 - 1.0 EU/dL [facility] UA Auto SS WBC Auto Ql (U) 3+ *ABN* (01/25/24 2:05 PM) Invalid Interpretation Code Negative [facility] UA Auto SS WBC LM.HPF (Urine sed) [#/Area] /[HPF] Invalid Interpretation Code 0-5/HPF [facility] UA Auto SS XR Chest Single Viewon 01-24 XR Chest Single View Exam Date/Time: 01/25/2024 14:59 EST Reason for Exam: Shortness of breath (SOB) Report [facility] [phone] IMPRESSION: There are no acute cardiopulmonary changes. [...] mGy = 0 DAP = 0 Normal [facility] eGFRon 01-25-2024 eGFR 100 mL/min/1.73 m2 Normal >=59 [facility] Comment on above: Order Comment: Order added by Discern Expert. Performed By: #### 1 4336792, 3920102, 8557110, 40171669, 98673110, 5093068, 9415249, 2191549 #### [facility] [address] [place] [address] Patient Educationon 01-18-20 24 Patient Education Infectious [...] these instructions at home: Medicines ? Take favx-nlj-lrukpsl and prescription medicines only as told by [...] Where to find more information ? [employer] [place] [employer] and Digestive and Kidney [employer]: (more content not included)... Normal [facility] Office/Clinic Noteon 01-18-2024 Urology Office/Clinic Note Chief Complaint S/P TRUS/Bx HPI Staff F/u to review path report from TRUS/bx 01/01/24. Previous dx: BPH with obstruction, elevated PSA. Patient presented to [facility] on 01/04/24 due to prostatitis, sepsis [...] the patient could understand. Pt presented to [facility] on 01/04/24 due to prostatitis, sepsis [...] Information RICKY LEVIN, Nadir Mercado, [address] [place] [address]- Additional Instructions: 6 months Patient Education Prostatitis [...] knee (06 (more content not included)... Normal [facility] Comment on [...] and Complexity of Problems Differential Diagnosis: [] [facility] Data External documents reviewed: [] My [...] acetaminophen 325 mg Tab, 650 mg, Oral [id number] [F] 500 mg + Sodium Chloride 0.9% IV Kena 50 mL Minibag Plus [F] 50 mL, IV Piggyback NS 1000 ml Bolus, 1000 mL, IV Disposition Plan Patient Discharge Condition Stable Discharge Disposition To be admitted Discharge Prescription List Prescriptions No active prescription medications Follow-up No qualifying data available Attestation Patient seen and evaluated by the physician family assistant. Attending physician was present in the emergency department and (more content not included)... Normal [facility] Comment on above: Result Comment: Elec tronically Signed By: Daniel Espinoza PA-C\.br\Date and Time Signed: 01/04/24 20:59 EST\.br\Electronically Co-Signed By: Sara Patel M.D.\.br\Date and Time Co-Signed: 01/12/24 07:20 EST Coding Queryon 01-10-2024 Coding Query - From: Teresa Rodriguez RN To: Christie LEVIN, [facility]; Sent: 01/10/2024 15:10:07 EST ! Subject: Coding Query Due Date/Time: 01/11/2024 15:09:00 EST Caller Name: STEVE WILLIAMSON; Caller Number: H , B [phone] Documentation in the medical record indicates this [...] STEVE WILLIAMSON; Caller Number: H , B [phone] Infection related to the procedure Normal [facility] Consent for Treatmenton 12-21 Consent for Treatment [id number] 0TIFF Normal [facility] Discharge Instructionson Discharge Instructions [id number]#1.0 0TIFF Normal [facility] ED Clinical Summaryon 2023 ED Clinical Summary [place] [id number] ED Clinical Summary Person Information Name: STEVE WILLIAMSON [facility] Age: 58 Years : 1965 Sex: Male Language: South Sudanese PCP: DELPHINE BERRY NP Marital Status: Visit [...] 01/10/2024 11:26:43 01/10/2024 11:26:43 01/10/2024 11:26:43 ADDRESS: [address] [place] [id number] PHYS DOC NOTES: MEDICAL INFORMATION: Prescriptions Given: New Medications [facility], [address], [place] [id number], [phone] cephalexin (Keflex 500 mg Cap) 1 Capsules [...] or worsening symptoms. DIAGNOSIS: Superficial thrombophlebitis Normal [facility] ED Note-Physicianon 01-10-20 ED Note-Physician Basic Information [...] extremity: Radial pulses intact. Sensation is intact. Suction Drum Drier Operator strength, finger abduction and adduction are intact. [...] day(s), # 28 cap(s), Refills(s) 0, Pharmacy: [facility], 178, cm, 01/10/24 10:05:00 EST, Height/Length [...] History Hyperlipi (more content not included)... Normal [facility] Comment on [...] these instructions at home: Medicines ? Take hvtq-oyp-wahimbv and prescription medicines only as told by [...] cigarettes, chew (more content not included)... Normal [facility] ED Patient Summaryon 024 ED Patient Summary [address] [address] Patient Discharge Instructions Person Information Name: STEVE WILLIAMSON Age: 58 Years Arrival Date: 01/10/2024 09:54:14 Discharge Diagnosis: Superficial thrombophlebitis Primary Care Physician: DELPHINE BERRY NP Provider Information Primary Provider: Amauri Tran DO Advanced Needle Punch Machine Operator Helper:None The exam and treatment you received in the Emergency Department were for an urgent problem and are not intended as complete care. It is important that you follow up with a doctor, nurse practitioner, or physician?s family assistant for ongoing care. If your symptoms [...] opioids can be used to help relieve gnlpbiii-ae-sooijf pain and are often prescribed following a [...] ? Saf (more content not included)... Normal [facility] C Urineon 01-08-2024 Bacteria identified Cx Nom [...] Locations R1: This test was performed at: [facility], [address] [place] [address], [address] , , [facility] Comment on above: Performed By: #### 1 8965323, 0940567, 0717454, 23480004, 69685568, 5102677, 3593153, 5068454 #### [facility] [address] [place] [address] Discharge Instructionson Discharge Instructions [id number]#1.0 [facility] iceon 01-08-2024 Insurance Correspondence Office [id number]. 00TIFF [facility] BMPon 01-07-2024 Anion gap [Moles/Vol] 11 mmol/L Normal 6-16 [facility] Comment on above: Performed By: #### 1 8981643, 3667243, 2578987, 15260024, 08335846, 5016758, 1420013, 7499822 #### [facility] [address] [place] [address] BUN/Creat Ratio 13 No Units Normal 10-20 [facility] Comment on above: Performed By: #### 1 7581425, 8761386, 5755011, 79499550, 23122161, 2867501, 2222646, 7935600 #### [facility] [address] [place] [address] Calcium [Mass/Vol] 9.0 mg/dL Normal 8.9-11.1 [facility] Comment on above: Performed By: #### 1 3125842, 3919424, 8113855, 19624774, 45540478, 1040555, 3230047, 6026691 #### [facility] [address] [place] [address] Chloride [Moles/Vol] 106 mmol/L Normal 101-111 [facility] Comment on above: Performed By: #### 1 6235156, 7921293, 3426970, 11594442, 11813422, 6585397, 4190989, 5956179 #### [facility] [address] [place] [address] CO2 [Moles/Vol] 28 mmol/L Normal 21-31 [facility] Comment on above: Performed By: #### 1 5335981, 5773055, 6693189, 36953107, 47217922, 9443861, 0859038, 1381312 #### [facility] [address] [place] [address] Creatinine [Mass/Vol] 0.9 mg/dL Normal 0.5-1.3 [facility] Comment on above: Performed By: #### 1 0978128, 5414597, 6986125, 19859628, 17158176, 5905955, 8778479, 4082803 #### [facility] [address] [place] [address] Glucose [Mass/Vol] 103 mg/dL Normal 55-199 [facility] Comment on above: Performed By: #### 1 7011317, 7278751, 9839483, 00896619, 54595090, 6736908, 5191089, 8020801 #### [facility] [address] [place] [address] Potassium [Moles/Vol] 3.6 mmol/L Normal 3.5-5.3 [facility] Comment on above: Performed By: #### 1 8113803, 0453669, 8809334, 64141464, 42149736, 8070357, 6799330, 5724954 #### [facility] [address] [place] [address] Sodium [Moles/Vol] 141 mmol/L Normal 135-145 [facility] Comment on above: Performed By: #### 1 5417151, 7416231, 7710341, 52053703, 00917248, 6795371, 5902368, 8061018 #### [facility] [address] [place] [address] Urea nitrogen [Mass/Vol] 12 mg/dL Normal 5-21 [facility] Comment on above: Performed By: #### 1 7688925, 1731405, 1362988, 37778766, 12244449, 8501399, 4927098, 0840116 #### [facility] [address] [place] [address] CBC w/ Auto Diffon 4 Basophil Absolute 0.0 E9/L Normal 0.0-0.2 [facility] Comment on above: Performed By: #### 1 5165591, 2925918, 4924919, 83310551, 75728997, 1536224, 3900504, 2987709 #### [facility] [address] [place] [address] Basophils/100 WBC (Bld) 0.5 % Normal 0.0-2.0 [facility] Comment on above: Performed By: #### 1 4190022, 2860675, 7788401, 27810109, 98113080, 8616683, 5140982, 9728343 #### [facility] [address] [place] [address] Eos Absolute 0.2 E9/L Normal 0.0-0.5 [facility] Comment on above: Performed By: #### 1 7424736, 4504900, 9719063, 91461109, 21538829, 8570019, 4284510, 2976005 #### [facility] [address] [place] [address] Eosinophils/100 WBC (Bld) 2.5 % Normal 0.0-8.0 [facility] Comment on above: Performed By: #### 1 7246255, 1445516, 3870817, 19810110, 97726132, 6770725, 5407655, 0908855 #### [facility] [address] [place] [address] Erythrocyte distribution width (RBC) [Ratio] 12.9 % Normal 10.9-14.2 [facility] Comment on above: Performed By: #### 1 9045106, 4685855, 3296997, 16005614, 05427938, 9853250, 6349935, 7937230 #### [facility] [address] [place] [address] Hematocrit (Bld) [Volume fraction] 40.0 % Normal 37.7-49.0 [facility] Comment on above: Performed By: #### 1 5157416, 9586241, 3116735, 28053628, 80655464, 0410718, 1793447, 2285092 #### [facility] [address] [place] [address] Hemoglobin (Bld) [Mass/Vol] 14.1 g/dL Normal 13.5-17.5 [facility] Comment on above: Performed By: #### 1 1028812, 2981169, 0396239, 56439316, 42563731, 7293957, 6642143, 9314726 #### [facility] [address] [place] [address] Lymph Absolute 1.2 E9/L Normal 1.0-4.0 [facility] Comment on above: Performed By: #### 1 5949036, 7574060, 3489014, 18803889, 33263013, 2033761, 7816573, 4261243 #### [facility] [address] [place] [address] Lymphocytes/100 WBC (Bld) 18.4 % Normal 14.0-50.0 [facility] Comment on above: Performed By: #### 1 7219105, 8434565, 4720346, 11375144, 05126683, 2470621, 0219984, 8807234 #### [facility] [address] [place] [address] MCH (RBC) [Entitic mass] 32.5 pg Normal 27.0-34.0 [facility] Comment on above: Performed By: #### 1 3145841, 4023574, 3579515, 89489013, 26411283, 8740076, 1745456, 7259739 #### [facility] [address] [place] [address] MCHC (RBC) [Mass/Vol] 35.2 g/dL Normal 31.4-36.0 [facility] Comment on above: Performed By: #### 1 9895262, 4455518, 5491965, 38215710, 74766254, 3343393, 9475507, 7432477 #### [facility] [address] [place], [place] [address] MCV (RBC) [Entitic vol] 92.4 fL Normal 80.0-100.0 [facility] Comment on above: Performed By: #### 1 5184676, 1194883, 4498391, 76455153, 28084839, 4004824, 4933484, 3031164 #### [facility] [address] [place] [address] [place] Absolute 0.7 E9/L Normal 0.2-1.0 [facility] Comment on above: Performed By: #### 1 7090403, 4070940, 4780691, 84668642, 10931241, 7377082, 1453909, 3028279 #### [facility] [address] [place], [place] [address] Monocytes/100 WBC (Bld) 10.9 % Normal 4.0-14.0 [facility] Comment on above: Performed By: #### 1 5731623, 1522018, 4886679, 52875770, 86984929, 8711301, 9316373, 8152378 #### [facility] [address] [place] [address] Neutro Absolute 4.6 E9/L Normal 2.0-7.5 [facility] Comment on above: Performed By: #### 1 4312329, 1026199, 1820227, 16234659, 02685844, 5460454, 8680671, 0273521 #### [facility] [address] [place] [address] Neutro Auto 67.7 % Normal 36.0-75.0 [facility] Comment on above: Performed By: #### 1 3219757, 5895535, 0459087, 88134961, 03400211, 6293016, 1530245, 4589500 #### [facility] [address] [place] [address] Platelet 143.0 E9/L Low 150.0-500.0 [facility] Comment on above: Performed By: #### 1 3656284, 2514435, 4559601, 70727667, 47638163, 9726539, 7032803, 7289592 #### [facility] [address] [place] [address] Platelet mean volume (Bld) [Entitic vol] 8.1 fL Normal 6.4-10.8 [facility] Comment on above: Performed By: #### 1 9504084, 1214111, 2176155, 67981903, 08818590, 9943488, 1945207, 8454026 #### [facility] [address] [place] [address] RBC 4.3 E12/L Normal 4.3-5.9 [facility] Comment on above: Performed By: #### 1 2135778, 9199792, 3461014, 59976324, 82472164, 0721332, 3666836, 0445999 #### [facility] [address] [place] [address] WBC 6.7 E9/L Normal 4.0-11.0 [facility] Comment on above: Performed By: #### 1 0890566, 8857864, 5983055, 11560277, 17811212, 7407458, 0962054, 2293591 #### [facility] [address] [place] [address] CHEMISTRYOrdered By: SYSTEM SYSTEM on 01-07-2024 Anion [...] LEVIN, Nadir Mercado Where: [facility] HEMATOLOGYOrdered By: SYSTEM SYSTEM on 01-07-2024 [...] Normal 80.0 - 100.0 fL Remisol Heme [place] Absolute 0.7 E9/L Normal 0.2 - 1.0 [...] Inpatient Clinical Summaryon 01-07-2024 Inpatient Clinical Summary [place] [address] Clinical Summary Person Information: Name: STEVE WILLIAMSON Age: 58 Years : 1965 Sex: Male PCP: DELPHINE BERRY NP Marital Status: Race: White Ethnicity: Non- or Language: [place]ese Visit Id: Visit Reason: Post surgical problem; Fever; Hematuria; DIFFICULTY URINATING / LOW GRADE FEVER / SENT FROM [facility] Speciality: Acuity: Enc Type: Inpatient Med Service: Medical Arrival: 01/04/2024 15:24:45 Discharge: Dispo Type: Admitted as IP to this Hosp Address: [address] [place] [id number] Provider Notes: Diagnosis: 1:Sepsis; 2:Prostatitis; 3:BPH with [...] Follow up: With: Address: When: Nadir GARCÍA [facility], [address], [place] [address] [facility] (1) Comments: Call for followup appointment With: Address: When: DELPHINE BERRY Comments: Call for followup appointment Type Location Start [facility] Office Visit [facility] NO[facility] Kaufman 01/18/2024 11:00 AM 01/18/2024 11:15 AM Confirmed Patient Education Information: Normal [facility] Inpatient Patient Summaryon 01-07-2024 Inpatient Patient Summary [address] [address] Patient Discharge Instructions PERSON INFORMATION [...] Follow up: With: Address: When: Nadir GARCÍA [facility], [address], [place] [address] Business (1) Comments: Call for followup appointment With: Address: When: DELPHINE BERRY Comments: Call for followup appointment In the event that this physician does not participate in your insurance network, please consult with your insurance company to find a nearby participating provider. Type Location Start Finish [facility] Office Visit [facility] NOAH Kaufman 01/18/2024 11:00 AM 01/18/2024 11:15 AM Confirmed Comment: DORA Garcia GREGORY A, have received the attached patient education materials/instructions and have verbalized understanding: Patient Signature Date Clinican/Nurse Signature ___ Date HERE ARE THE MEDICATION CHANGES THAT OCCURRED DURING YOUR HOSPITAL STAY New Medications [facility], [address], [place] [id number], [phone] levofloxacin (Levaquin 750 mg Tab) 1 Tablets [...] to serve you. Thank you for choosing [facility] Normal [facility] Insurance Correspondence Off iceon 01-07-2024 Insurance Correspondence Office [id number]#1.0 0TIFF Normal [facility] Interdisciplinary Note - Merrill e Manageron 01-07-2024 Interdisciplinary Note - Anesthetic Assistant Pt will dc today on PO atx. pt's will transport. Return to work letter will be prepared by bedside nurse. Ant dc today. Normal [facility] Comment on above: Result Comment: Elec tronically Signed By: Licha Ley.br\Date and Time Signed: 01/07/24 13:38 EST Interdisciplinary Note - Soc ial Workeron 01-07-2024 Interdisciplinary Note - Occup Therapist Consult for positive SDOH received for possible issues with transportation to appointments. SW attempted to meet with patient, however he had already been discharged when SW arrived to the floor. SW will remain available. Normal [facility] Monitor Recordon 01-07-2024 Monitor Record [id number]#1. 00TIFF Normal [facility] Monitor Record [id number]. 00TIFF Normal [facility] Prostate Histology ([facility]) on 01-07-2024 Prostate Histology Diagnosis Info Invalid Interpretation Code [facility] Comment on above: Result Comment: A:Pr ostate,Left Lateral Base:Needle Biopsy Interpretation - - Benign prostatic tissue with patchy inflammation. MicroScopic Description - B:Prostate,Left Lateral Mid:Needle Biopsy Interpretation - - Benign prostatic tissue. MicroScopic Description - C:Prostate,Left Lateral [place]:Needle Biopsy Interpretation - - Benign prostatic tissue. MicroScopic Description - D:Prostate,Left Base:Needle Biopsy Interpretation - - Benign prostatic tissue. MicroScopic Description - E:Prostate,Left Mid:Needle Biopsy Interpretation - - High-grade prostatic intraepithelial neoplasia (HGPIN). MicroScopic Description - F:Prostate,Left [place]:Needle Biopsy Interpretation - - Benign prostatic tissue. MicroScopic Description - G:Prostate,Right Base:Needle Biopsy Interpretation - - Benign prostatic tissue. MicroScopic Description - H:Prostate,Right Mid:Needle Biopsy Interpretation - - Benign prostatic tissue. MicroScopic Description - I:Prostate,Right [place]:Needle Biopsy Interpretation - - Benign prostatic tissue with patchy chronic inflammation. MicroScopic Description - J:Prostate,Right Lateral Base:Needle Biopsy Interpretation - - Benign prostatic tissue. MicroScopic Description - K:Prostate,Right Lateral Mid:Needle Biopsy Interpretation - - Benign prostatic tissue. MicroScopic Description - L:Prostate,Right Lateral [place]:Needle Biopsy Interpretation - - Benign prostatic tissue. [...] Formalin cores 1 units cm CPT code: 77207 x 12 Electronically signed by : on: 01/07/2024 10:12:58 Performed By: #### 1 [id number] ####[facility] [address] [place] [address] eGFRon 01-07-2024 eGFR 100 mL/min/1.73 m2 Normal >=59 [facility] Comment on above: Order Comment: Order added by Discern Expert. Performed By: #### 1 9542380, 5192297, 1927943, 70769938, 37043958, 2866786, 0544004, 1467141 #### [facility] [address] [place] [address] BMPon 01-06-2024 Anion gap [Moles/Vol] 7 mmol/L Normal 6-16 [facility] Comment on above: Performed By: #### 1 5963165, 9554723, 1850269, 52861003, 13384432, 3763063, 0840423, 1321514 #### [facility] [address] [place] [address] BUN/Creat Ratio 18 No Units Normal 10-20 [facility] Comment on above: Performed By: #### 1 4339212, 3475738, 3999599, 25543856, 46933474, 2492992, 4484046, 9394901 #### [facility] [address] [place] [address] Calcium [Mass/Vol] 8.5 mg/dL Low 8.9-11.1 [facility] Comment on above: Performed By: #### 1 3720875, 9427277, 6779517, 34698190, 54147698, 4118908, 1206864, 7899848 #### [facility] [address] [place] [address] Chloride [Moles/Vol] 108 mmol/L Normal 101-111 [facility] Comment on above: Performed By: #### 1 9398796, 6896042, 1850211, 95605253, 27631268, 4919766, 6132806, 2818925 #### [facility] [address] [place] [address] CO2 [Moles/Vol] 27 mmol/L Normal 21-31 [facility] Comment on above: Performed By: #### 1 3301147, 4073031, 8178971, 01728287, 27526872, 4184336, 6461793, 6813386 #### [facility] [address] [place] [address] Creatinine [Mass/Vol] 1.0 mg/dL Normal 0.5-1.3 [facility] Comment on above: Performed By: #### 1 9988038, 7431849, 8041325, 02448767, 07411541, 5651233, 1874509, 0968803 #### [facility] [address] [place] [address] Glucose [Mass/Vol] 119 mg/dL Normal 55-199 [facility] Comment on above: Performed By: #### 1 7204072, 7058233, 5708466, 79747997, 29037719, 4908706, 3887452, 5618062 #### [facility] [address] [place] [address] Potassium [Moles/Vol] 4.2 mmol/L Normal 3.5-5.3 [facility] Comment on above: Performed By: #### 1 4253571, 5126837, 7475594, 57927159, 39099458, 6600350, 5771764, 3869342 #### [facility] [address] [place] [address] Sodium [Moles/Vol] 138 mmol/L Normal 135-145 [facility] Comment on above: Performed By: #### 1 6494580, 4374693, 8847985, 24349566, 46893858, 8657669, 2512575, 9188122 #### [facility] [address] [place] [address] Urea nitrogen [Mass/Vol] 18 mg/dL Normal 5-21 [facility] Comment on above: Performed By: #### 1 5340758, 3317486, 2737650, 95339532, 65363295, 4060411, 6482313, 6541326 #### [facility] [address] [place] [address] CBC w/ Auto Diffon 4 Basophil Absolute 0.0 E9/L Normal 0.0-0.2 [facility] Comment on above: Performed By: #### 1 2799220, 8270744, 7594452, 51026736, 05457773, 8414091, 9116316, 0629843 #### [facility] [address] [place] [address] Basophils/100 WBC (Bld) 0.3 % Normal 0.0-2.0 [facility] Comment on above: Performed By: #### 1 5712586, 0081534, 8444439, 12919247, 32734035, 6730720, 9847006, 6443283 #### [facility] [address] [place] [address] Eos Absolute 0.1 E9/L Normal 0.0-0.5 [facility] Comment on above: Performed By: #### 1 6088401, 4511890, 4682612, 42605578, 20304155, 5575193, 5524983, 1612991 #### [facility] [address] [place], [place] [address] Eosinophils/100 WBC (Bld) 2.1 % Normal 0.0-8.0 [facility] Comment on above: Performed By: #### 1 0778210, 8136872, 1860442, 59731452, 40230457, 2904943, 0581163, 2407545 #### [facility] [address] [place], [place] [address] Erythrocyte distribution width (RBC) [Ratio] 12.4 % Normal 10.9-14.2 [facility] Comment on above: Performed By: #### 1 3896666, 4620904, 5538482, 03791644, 46489304, 1401312, 7423515, 5851971 #### [facility] [address] [place], [place] [address] Hematocrit (Bld) [Volume fraction] 38.0 % Normal 37.7-49.0 [facility] Comment on above: Performed By: #### 1 4421851, 9840696, 1501742, 90512226, 57861121, 4221720, 0833314, 4019702 #### [facility] [address] [place], [place] [address] Hemoglobin (Bld) [Mass/Vol] 13.5 g/dL Normal 13.5-17.5 [facility] Comment on above: Performed By: #### 1 1412511, 3022380, 0352162, 79482466, 98860492, 8577133, 8665961, 6982538 #### [facility] [address] [place] [address] Lymph Absolute 0.9 E9/L Low 1.0-4.0 [facility] Comment on above: Performed By: #### 1 7206896, 1126116, 3930560, 48910812, 14228441, 2117780, 6441550, 0350967 #### [facility] [address] [place] [address] Lymphocytes/100 WBC (Bld) 13.8 % Low 14.0-50.0 [facility] Comment on above: Performed By: #### 1 7279121, 8106407, 6950532, 74147583, 72052644, 4391625, 0435421, 4616239 #### [facility] [address] [place] [address] 07245 MCH (RBC) [Entitic mass] 32.5 pg Normal 27.0-34.0 [facility] Comment on above: Performed By: #### 1 4528478, 1935816, 1365926, 50812584, 95273999, 3078782, 7217141, 7689391 #### [facility] [address] [place] [address] 56812 MCHC (RBC) [Mass/Vol] 35.1 g/dL Normal 31.4-36.0 [facility] Comment on above: Performed By: #### 1 9361018, 5182774, 7387158, 03686261, 69670705, 9236089, 1787955, 9674512 #### [facility] [address] [place] [address] 26251 MCV (RBC) [Entitic vol] 92.6 fL Normal 80.0-100.0 [facility] Comment on above: Performed By: #### 1 5886668, 5528094, 1066746, 49209061, 35330715, 1608278, 3707654, 2030285 #### [facility] [address] [place] [address] [place] Absolute 0.9 E9/L Normal 0.2-1.0 [facility] Comment on above: Performed By: #### 1 7200607, 2451896, 0853948, 22980152, 74603457, 1611712, 8272622, 4582027 #### [facility] [address] [place] [address] Monocytes/100 WBC (Bld) 12.8 % Normal 4.0-14.0 [facility] Comment on above: Performed By: #### 1 7851818, 2995836, 7890104, 33758616, 28383770, 6874193, 1068167, 2070343 #### [facility] [address] [place] [address] Neutro Absolute 4.8 E9/L Normal 2.0-7.5 [facility] Comment on above: Performed By: #### 1 8834022, 7147784, 2071877, 11530288, 28841920, 1914826, 9256868, 5268878 #### [facility] [address] [place] [address] Neutro Auto 71.0 % Normal 36.0-75.0 [facility] Comment on above: Performed By: #### 1 1950181, 9359320, 0634394, 12275431, 44629437, 5669583, 6456628, 9817621 #### [facility] [address] [place] [address] 54792 Platelet 115.0 E9/L Low 150.0-500.0 [facility] Comment on above: Performed By: #### 1 3505989, 9809721, 3933879, 15362530, 28549531, 0538576, 9234212, 9705139 #### [facility] [address] [place] [address] Platelet mean volume (Bld) [Entitic vol] 7.9 fL Normal 6.4-10.8 [facility] Comment on above: Performed By: #### 1 7734437, 2710470, 4070995, 18358794, 78831697, 2677576, 0784423, 8208366 #### [facility] [address] [place] [address] RBC 4.2 E12/L Low 4.3-5.9 [facility] Comment on above: Performed By: #### 1 8476183, 2932606, 8291048, 29025356, 90199451, 7775986, 5282770, 3503972 #### [facility] [address] [place] [address] WBC 6.8 E9/L Normal 4.0-11.0 [facility] Comment on above: Performed By: #### 1 8824132, 7314905, 8501269, 67939685, 89132229, 9438276, 0174263, 2316661 #### [facility] [address] [place] [address] CHEMISTRYOrdered By: [employer] on 01-06-2024 Anion gap [Moles/Vol] 7 mmol/L [...] Normal 80.0 - 100.0 fL Remisol Heme [place] Absolute 0.9 E9/L Normal 0.2 - 1.0 [...] Merrill e Manageron 01-06-2024 Interdisciplinary Note - Anesthetic Assistant CRM spoke with patient. Patient was previous rounded on by Dr Brown today. Waiting urine cx results, possible dc tomorrow. Pending cx results may need IV ATB at dc. No family in room. Patient is alert and oriented. Whiteboard updated and CRM contact # provided. Patient denies any questions or needs at dc. [facility] Comment on above: Result Comment: Elec tronically Signed By: John TEE, Nancy\.br\Date and Time Signed: 01/06/24 10:57 EST Monitor Recordon 01-06-2024 Monitor Record [id number] 20 [id number]. 00TIFF [facility] Monitor Record [id number] 20 [id number]#1. 00TIFF [facility] Monitor Record [id number] 20 [id number]#1. 00TIFF [facility] Monitor Record [id number] 20 [id number]#1. 00TIFF [facility] Monitor Record [id number] 20 [id number]#1. 00TIFF [facility] Monitor Record [id number] 20 [id number]#1. 00TIFF [facility] Monitor Record [id number] 20 [id number]#1. 00TIFF [facility] Progress Note-Physicianon Progress Note-Physician Assessment/Plan 1. Sepsis [...] Lymph Auto: 13.8 % Low (01/06/24 05:51:00) [place] Auto: 12.8 % (01/06/24 05:51:00) Eos Auto: 2.1 % (01/06/24 05:51:00) Basophil Auto: 0.3 % (01/06/24 05:51:00) Neutro Absolute: 4.8 E9/L (01/06/24 05:51:00) Lymph Absolute: 0.9 E9/L Low (01/06/24 05:51:00) [place] Absolute: 0.9 E9/L (01/06/24 05:51:00) Eos Absolute: [...] mg= 1 (more content not included)... Normal [facility] Comment on [...] procedure., # 1 tab(s), Refills(s) 0, Pharmacy: [facility], 178, cm, 12/10/23 11:59:00 EST, Height/Length Dosing, 82, kg, 12/10/23 11:59:00 EST, Weight Dosing... alfuzosin 10 mg ER Tab: 10 mg = 1 tab(s), Oral, Daily, # 30 tab(s), Refills(s) 11, Pharmacy: [facility], 178, cm, 12/10/23 11:59:00 EST, Height/Length Dosing, 82, kg, 12/10/23 11:59:00 EST, Weight Dosing Documented Medications Documented latanoprost Opth 0.005% Kena: 1 drop(s), OPTH, Once a day (at bedtime), Other (see comment) rosuvastatin 20 mg Tab: 20 mg = 1 tab(s), Oral, Daily, High cholesterol Problem list: All Problems At risk for falls / SNOMED CT 446441937 / Possible Problem added when Risk for Falls Careplan was initiated. 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 Acute glaucoma / SNOMED CT 98292047 / Confirmed Glaucoma / SNOMED CT 21405429 / Confirmed Heart murmur / SNOMED CT 303493666 / Confirmed High cholesterol / SNOMED CT 82348343 / Confirmed High cholesterol / SNOMED CT 23314133 / Confirmed Hyperlipemia / SNOMED CT 97882912 / Confirmed Knee pain, left / SNOMED CT 11102292 / Confirmed Screen for colon cancer / SNOMED CT 169227623 / Confirmed Elevated PSA / SNOMED CT 6780795863 / Confirmed Transportation insecurity / SNOMED CT 8993829715497390 / Possible Problem added automatically by Discern Expert based on clinical documentation, Active Problems (12) Acute glaucoma At risk for falls BPH with urinary obstruction Elevated PSA Glaucoma Heart murmur High cholesterol High cholesterol Hyperlipemia Knee pain, left Screen for colon cancer Transportation insecurity Histories Past Medical History: Resolved Plantar fasciitis (679933699): Resolved. Comments: 03/07/2013 EDT 12:51 EDT Kerry Ha RN, Lyubov RIGHT FOOT Family History: Hyperlipidemia Father Mother Procedure history: Colonoscopy (123693366) on 10/26/2023 at 58 Years. Arthroscopy of knee (343363491) on 05/07/2019 at 54 Years. Comments: 05/07/2019 [...] Return Yes (more content not included)... Normal [facility] Comment on above: Result Comment: Elec tronically Signed By: Amanda LEVIN, Marvel Solis\Date and Time Signed: 01/06/24 09:09 EST eGFRon 01-06-2024 eGFR 88 mL/min/1.73 m2 Normal >=59 [facility] Comment on above: Order Comment: Order added by Discern Expert. Performed By: #### 1 8665600, 9568812, 1417455, 68443507, 56340956, 4482070, 8425563, 6650099 #### [facility] [address] [place] [address] BMPon 01-05-2024 Anion gap [Moles/Vol] 12 mmol/L Normal 6-16 [facility] Comment on above: Performed By: #### 1 5524734, 1431769, 3561900, 32817615, 12790616, 3842081, 0705105, 9308700 #### [facility] [address] [place] [address] BUN/Creat Ratio 17 No Units Normal 10-20 [facility] Comment on above: Performed By: #### 1 7097732, 7359845, 6551352, 85186499, 63516641, 1024573, 7753857, 6106515 #### [facility] [address] [place] [address] Calcium [Mass/Vol] 8.4 mg/dL Low 8.9-11.1 [facility] Comment on above: Performed By: #### 1 5392020, 6136842, 0236097, 59072533, 92848797, 0248788, 5641956, 6760626 #### [facility] [address] [place] [address] Chloride [Moles/Vol] 105 mmol/L Normal 101-111 [facility] Comment on above: Performed By: #### 1 3539898, 5421173, 2787932, 47587781, 68838555, 7327869, 2947717, 4535987 #### [facility] [address] [place] [address] CO2 [Moles/Vol] 22 mmol/L Normal 21-31 [facility] Comment on above: Performed By: #### 1 6296987, 3042380, 7570989, 67157930, 54524240, 4560578, 3789370, 1189781 #### [facility] [address] [place] [address] Creatinine [Mass/Vol] 0.9 mg/dL Normal 0.5-1.3 [facility] Comment on above: Performed By: #### 1 7226172, 6619688, 8917370, 83013954, 68213968, 5116387, 5720805, 6736488 #### [facility] [address] [place] [address] Glucose [Mass/Vol] 106 mg/dL Normal 55-199 [facility] Comment on above: Performed By: #### 1 4717890, 6018440, 9371688, 85261935, 83991259, 0931485, 2369571, 7339980 #### [facility] [address] [place] [address] Potassium [Moles/Vol] 3.8 mmol/L Normal 3.5-5.3 [facility] Comment on above: Performed By: #### 1 3471020, 5921415, 2440466, 16423158, 36232679, 7324805, 8630833, 0959569 #### [facility] [address] [place] [address] Sodium [Moles/Vol] 135 mmol/L Normal 135-145 [facility] Comment on above: Performed By: #### 1 7596635, 9901993, 3551953, 96878516, 63672618, 1829310, 3891403, 2062563 #### [facility] [address] [place] [address] Urea nitrogen [Mass/Vol] 15 mg/dL Normal 5-21 [facility] Comment on above: Performed By: #### 1 1783294, 8026105, 2903281, 25504247, 74605685, 6282641, 9687854, 9578873 #### [facility] [address] [place] [address] CBC w/ Auto Diffon 4 Basophil Absolute 0.0 E9/L Normal 0.0-0.2 [facility] Comment on above: Performed By: #### 1 5691782, 4687066, 9914482, 05998792, 42652712, 2494950, 9889019, 6832802 #### [facility] [address] [place] [address] 45208 Basophils/100 WBC (Bld) 0.3 % Normal 0.0-2.0 [facility] Comment on above: Performed By: #### 1 5123700, 2328341, 4481395, 02598924, 93171096, 1496182, 8606250, 4012502 #### [facility] [address] [place] [address] 444[address] Eos Absolute 0.0 E9/L Normal 0.0-0.5 [facility] Comment on above: Performed By: #### 1 1296042, 6354387, 4067968, 45978572, 08968807, 0389202, 9127074, 5387316 #### [facility] [address] [place] [address] 26[address] Eosinophils/100 WBC (Bld) 0.3 % Normal 0.0-8.0 [facility] Comment on above: Performed By: #### 1 6376943, 4050403, 2710931, 40963690, 82633147, 6541944, 5758421, 1756333 #### [facility] [address] [place] [address] 23269 Erythrocyte distribution width (RBC) [Ratio] 12.5 % Normal 10.9-14.2 [facility] Comment on above: Performed By: #### 1 0515818, 8987584, 7135022, 19810154, 09400834, 2008832, 7961073, 7595517 #### [facility] [address] [place] [address] 22334 Hematocrit (Bld) [Volume fraction] 41.0 % Normal 37.7-49.0 [facility] Comment on above: Performed By: #### 1 3111602, 7102971, 9951794, 26940246, 28468648, 9505593, 0100207, 1438839 #### [facility] [address] [place] [address] Hemoglobin (Bld) [Mass/Vol] 14.1 g/dL Normal 13.5-17.5 [facility] Comment on above: Performed By: #### 1 6439155, 4437609, 7785138, 35138744, 30138207, 1464909, 4663326, 0210874 #### [facility] [address] [place] [address] Lymph Absolute 1.7 E9/L Normal 1.0-4.0 [facility] Comment on above: Performed By: #### 1 3165598, 0532902, 1039628, 40030144, 74410017, 5761719, 5699586, 8572024 #### [facility] [address] [place] [address]16[address] Lymphocytes/100 WBC (Bld) 14.8 % Normal 14.0-50.0 [facility] Comment on above: Performed By: #### 1 7412217, 9777249, 4478718, 18550841, 18502565, 4147110, 7052995, 1801613 #### [facility] [address] [place] [address] 98920 MCH (RBC) [Entitic mass] 31.7 pg Normal 27.0-34.0 [facility] Comment on above: Performed By: #### 1 2186835, 6111687, 2482138, 89174597, 25499808, 9486709, 9011665, 0235826 #### [facility] [address] [place] [address] MCHC (RBC) [Mass/Vol] 34.3 g/dL Normal 31.4-36.0 [facility] Comment on above: Performed By: #### 1 2637513, 7102931, 1575127, 32659329, 47169473, 8237806, 4746569, 1150012 #### [facility] [address] [place] [address] MCV (RBC) [Entitic vol] 92.2 fL Normal 80.0-100.0 [facility] Comment on above: Performed By: #### 1 3520790, 2949188, 0521174, 68507174, 95246900, 4044453, 0501428, 9485583 #### [facility] [address] [place] [address] [place] Absolute 1.1 E9/L High 0.2-1.0 [facility] Comment on above: Performed By: #### 1 5215407, 8451286, 9142685, 26514871, 90860432, 9833174, 5328328, 6379065 #### [facility] [address] [place] [address] 11756 Monocytes/100 WBC (Bld) 10.2 % Normal 4.0-14.0 [facility] Comment on above: Performed By: #### 1 0435593, 1932814, 7179709, 35614756, 62547306, 5579209, 7737820, 3298735 #### [facility] [address] [place] [address] 97890 Neutro Absolute 8.4 E9/L High 2.0-7.5 [facility] Comment on above: Performed By: #### 1 3187886, 9767920, 1709566, 82567973, 20371246, 4658000, 9110716, 7049555 #### [facility] [address] [place] [address]359 Neutro Auto 74.4 % Normal 36.0-75.0 [facility] Comment on above: Performed By: #### 1 4472923, 0574345, 7720222, 33076422, 18114286, 3832432, 9069512, 1438414 #### [facility] [address] [place] [address] Platelet 123.0 E9/L Low 150.0-500.0 [facility] Comment on above: Performed By: #### 1 9514532, 3114907, 7230917, 51786436, 72738451, 3196625, 3828125, 5532289 #### [facility] [address] [place] [address] Platelet mean volume (Bld) [Entitic vol] 8.4 fL Normal 6.4-10.8 [facility] Comment on above: Performed By: #### 1 4238673, 3231485, 0259498, 96843218, 06253521, 7702105, 5216061, 0180283 #### [facility] [address] [place] [address] RBC 4.5 E12/L Normal 4.3-5.9 [facility] Comment on above: Performed By: #### 1 1541400, 2454193, 3729497, 03653181, 09490557, 6802461, 5171137, 6436232 #### [facility] [address] [place] [address] WBC 11.3 E9/L High 4.0-11.0 [facility] Comment on above: Performed By: #### 1 1217863, 1213541, 2024917, 70692172, 46019858, 8045909, 8450930, 1780365 #### [facility] [address] [place] [address] CHEMISTRYOrdered By: SYSTEM SYSTEM on 01-05-2024 Anion [...] Normal 80.0 - 100.0 fL Remisol Heme [place] Absolute 1.1 E9/L High 0.2 - 1.0 [...] Merrill e Manageron 01-05-2024 Interdisciplinary Note - Anesthetic Assistant CRM spoke with patient. Patient was previous [...] other questions or needs at this time. [facility] Comment on above: Result Comment: Elec tronically Signed By: John TEE, Nancy\.br\Date and Time Signed: 01/05/24 13:21 EST Monitor Recordon 01-05-2024 Monitor Record [id number] 20 [id number]#1. 00TIFF [facility] Monitor Record [id number] 20 [id number]. 00TIFF [facility] Progress Note-Physicianon Progress Note-Physician Assessment/Plan 1. Sepsis [...] 04:40:00) Lymph Auto: 14.8 % (01/05/24 04:40:00) [place] Auto: 10.2 % (01/05/24 04:40:00) Eos Auto: 0.3 % (01/05/24 04:40:00) Basophil Auto: 0.3 % (01/05/24 04:40:00) Neutro Absolute: 8.4 E9/L High (01/05/24 04:40:00) Lymph Absolute: 1.7 E9/L (01/05/24 04:40:00) [place] Absolute: 1.1 E9/L High (01/05/24 04:40:00) Eos [...] Squam Epithelial (more content not included)... Normal [facility] Comment on [...] procedure., # 1 tab(s), Refills(s) 0, Pharmacy: [facility], 178, cm, 12/10/23 11:59:00 EST, Height/Length Dosing, 82, kg, 12/10/23 11:59:00 EST, Weight Dosing... alfuzosin 10 mg ER Tab: 10 mg = 1 tab(s), Oral, Daily, # 30 tab(s), Refills(s) 11, Pharmacy: [facility], 178, cm, 12/10/23 11:59:00 EST, Height/Length Dosing, 82, kg, 12/10/23 11:59:00 EST, Weight Dosing Documented Medications Documented latanoprost Opth 0.005% Kena: 1 drop(s), OPTH, Once a day (at bedtime), Other (see comment) rosuvastatin 20 mg Tab: 20 mg = 1 tab(s), Oral, Daily, High cholesterol Problem list: All Problems At risk for falls / SNOMED CT 845049422 / Possible Problem added when Risk for Falls Careplan was initiated. BPH with urinary obstruction / SNOMED CT 8854113390 / Confirmed Acute glaucoma / SNOMED CT 43000564 / Confirmed Glaucoma / SNOMED CT 89061664 / Confirmed Heart murmur / SNOMED CT 228459585 / Confirmed High cholesterol / SNOMED CT 97516977 / Confirmed High cholesterol / SNOMED CT 16803369 / Confirmed Hyperlipemia / SNOMED CT 65267265 / Confirmed Knee pain, left / SNOMED CT 18392822 / Confirmed Screen for colon cancer / SNOMED CT 493433740 / Confirmed Elevated PSA / SNOMED CT 0125940814 / Confirmed Transportation insecurity / SNOMED CT 7974394192849800 / Possible Problem added automatically by Discern Expert based on clinical documentation, Active Problems (12) Acute glaucoma At risk for falls BPH with urinary obstruction Elevated PSA Glaucoma Heart murmur High cholesterol High cholesterol Hyperlipemia Knee pain, left Screen for colon cancer Transportation insecurity Histories Past Medical History: Resolved Plantar fasciitis (836620046): Resolved. Comments: 03/07/2013 EDT 12:51 EDT - Dilcia TEE, Lyubov RIGHT FOOT Family History: Hyperlipidemia Father Mother Procedure history: Colonoscopy (681505310) on 10/26/2023 at 58 Years. Arthroscopy of knee (416880644) on 05/07/2019 at 54 Years. Comments (more content not included)... Normal [facility] Comment on above: Result Comment: Elec tronically Signed By: Amanda LEVIN, Marvel Morton\.br\Date and Time Signed: 01/05/24 08:37 EST eGFRon 01-05-2024 eGFR 100 mL/min/1.73 m2 Normal >=59 [facility] Comment on above: Order Comment: Order added by Discern Expert. Performed By: #### 1 9704021, 4959007, 5776127, 04167900, 15618477, 6661885, 4370504, 7886888 #### [facility] [address] [place] [address] CBC w/ Auto Diffon 4 Basophil Absolute 0.0 E9/L Normal 0.0-0.2 [facility] Comment on above: Performed By: #### 1 2266708, 6006454, 6854725, 38186798, 14919054, 6626322, 4866827, 5346782 #### [facility] [address] [place] [address] Basophils/100 WBC (Bld) 0.1 % Normal 0.0-2.0 [facility] Comment on above: Performed By: #### 1 2613920, 9099487, 2095772, 38120951, 77278273, 5913088, 4174034, 1281382 #### [facility] [address] [place] [address] Eos Absolute 0.0 E9/L Normal 0.0-0.5 [facility] Comment on above: Performed By: #### 1 7477236, 3076822, 1727114, 93175426, 14975004, 7933156, 9030122, 0329208 #### [facility] [address] [place] [address] Eosinophils/100 WBC (Bld) 0.0 % Normal 0.0-8.0 [facility] Comment on above: Performed By: #### 1 4020544, 4713567, 5131790, 98927824, 80535174, 6489810, 6486053, 8448931 #### [facility] [address] [place] [address]1522 Erythrocyte distribution width (RBC) [Ratio] 12.7 % Normal 10.9-14.2 [facility] Comment on above: Performed By: #### 1 1751306, 6412885, 7992995, 38381400, 27969603, 5271451, 1299042, 7592874 #### [facility] [address] [place] [address] Hematocrit (Bld) [Volume fraction] 44.0 % Normal 37.7-49.0 [facility] Comment on above: Performed By: #### 1 9751911, 7520757, 8285479, 10163252, 71422425, 8378018, 9942555, 4883788 #### [facility] [address] [place] [address] Hemoglobin (Bld) [Mass/Vol] 15.5 g/dL Normal 13.5-17.5 [facility] Comment on above: Performed By: #### 1 4393190, 0839393, 3091127, 95141673, 24629912, 3913648, 7419359, 4244480 #### [facility] [address] [place] [address] Lymph Absolute 0.9 E9/L Low 1.0-4.0 [facility] Comment on above: Performed By: #### 1 0013251, 8053751, 4475603, 09864494, 61532265, 5744892, 6292657, 9100973 #### [facility] [address] [place] [address] Lymphocytes/100 WBC (Bld) 6.3 % Low 14.0-50.0 [facility] Comment on above: Performed By: #### 1 7691557, 0130452, 3362041, 47363506, 50468005, 3065516, 5864811, 0084487 #### [facility] [address] [place] [address] MCH (RBC) [Entitic mass] 32.4 pg Normal 27.0-34.0 [facility] Comment on above: Performed By: #### 1 1169628, 4264365, 3413372, 79082550, 28841507, 0794971, 5585874, 9343481 #### [facility] [address] [place] [address] MCHC (RBC) [Mass/Vol] 35.1 g/dL Normal 31.4-36.0 [facility] Comment on above: Performed By: #### 1 0064403, 7365477, 1711380, 68825566, 59947582, 3415405, 0992028, 2420435 #### [facility] [address] [place] [address] MCV (RBC) [Entitic vol] 92.3 fL Normal 80.0-100.0 [facility] Comment on above: Performed By: #### 1 0931139, 2992922, 3361151, 13435106, 62110581, 0896043, 0993395, 0136392 #### [facility] [address] [place] [address] [place] Absolute 1.2 E9/L High 0.2-1.0 [facility] Comment on above: Performed By: #### 1 3402722, 0488376, 9313049, 89745221, 95944628, 1581323, 2668346, 6380373 #### [facility] [address] [place] [address] Monocytes/100 WBC (Bld) 8.3 % Normal 4.0-14.0 [facility] Comment on above: Performed By: #### 1 5579429, 2472987, 8764668, 08555943, 85587401, 7513043, 6713074, 9457438 #### [facility] [address] [place] [address] Neutro Absolute 12.5 E9/L High 2.0-7.5 [facility] Comment on above: Performed By: #### 1 8181603, 7592724, 6237541, 47256865, 15150279, 2775333, 7403574, 1323504 #### [facility] [facility] [address] [id number] Neutro Auto 85.3 % High 36.0-75.0 [facility] Comment on above: Performed By: #### 1 2022052, 0496728, 8495658, 00891440, 53836506, 7822783, 8383187, 6654772 #### [facility] [address] [place] [address] Platelet 130.0 E9/L Low 150.0-500.0 [facility] Comment on above: Performed By: #### 1 1844223, 3737485, 4851772, 87080962, 53624271, 7593429, 6442982, 7348112 #### [facility] [address] [place] [address] Platelet mean volume (Bld) [Entitic vol] 8.0 fL Normal 6.4-10.8 [facility] Comment on above: Performed By: #### 1 3162986, 7631865, 4866601, 21032595, 29638175, 2452340, 4950148, 7103909 #### [facility] [address] [place], [place] [address] RBC 4.8 E12/L Normal 4.3-5.9 [facility] Comment on above: Performed By: #### 1 5839819, 2443028, 3384739, 98154410, 81597344, 7001122, 5167794, 3239214 #### [facility] [address] [place] [address] WBC 14.6 E9/L High 4.0-11.0 [facility] Comment on above: Performed By: #### 1 3640073, 7328685, 6428908, 38342577, 06105949, 6560363, 4788980, 1985025 #### [facility] [address] [place] [address] CHEMISTRYOrdered By: SYSTEM SYSTEM on 01-04-2024 Lactic [...] 01-04-2024 Albumin [Mass/Vol] 4.6 g/dL Normal 3.3-5.0 [facility] Comment on above: Performed By: #### 1 7798542, 1355611, 5238532, 12210792, 68297584, 1647213, 0127197, 0566824 #### [facility] [address] [place] [address] Albumin/Globulin [Mass ratio] 1.6 {ratio} Normal 1.1-2.2 [facility] Comment on above: Performed By: #### 1 2212669, 5040238, 3408288, 88855425, 86064692, 3658841, 7488706, 9505549 #### [facility] [address] [place] [address] Alk Phos 57 Int._Unit/L Normal 21-98 [facility] Comment on above: Performed By: #### 1 8540513, 6142134, 1705629, 90314043, 81373741, 0975640, 9485243, 7235291 #### [facility] [address] [place] [address] ALT 23 Int._Unit/L Normal 6-46 [facility] Comment on above: Performed By: #### 1 8125860, 0335696, 4216450, 83670599, 05253324, 6063818, 0700095, 9238332 #### [facility] [address] [place] [address] Anion gap [Moles/Vol] 13 mmol/L Normal 6-16 [facility] Comment on above: Performed By: #### 1 0319430, 4760287, 1863435, 06545259, 67286892, 0667612, 9678760, 7317126 #### [facility] [address] [place] [address] AST 20 Int._Unit/L Normal 5-43 [facility] Comment on above: Performed By: #### 1 2416578, 8957828, 4840454, 39492054, 11118484, 2333205, 2731640, 9317290 #### [facility] [address] [place] [address] Bili Total 1.5 mg/dL High 0.0-1.1 [facility] Comment on above: Performed By: #### 1 5904243, 0980018, 9708980, 84637677, 46607491, 4425821, 3208490, 4691186 #### [facility] [address] [place] [address] BUN/Creat Ratio 13 No Units Normal 10-20 [facility] Comment on above: Performed By: #### 1 9794086, 4542973, 9870890, 21072578, 85160682, 5892722, 1642004, 9307181 #### [facility] [address] [place] [address] Calcium [Mass/Vol] 9.2 mg/dL Normal 8.9-11.1 [facility] Comment on above: Performed By: #### 1 9287954, 2163868, 7123512, 16287612, 86637193, 2465343, 2822289, 7669921 #### [facility] [address] [place] [address] Chloride [Moles/Vol] 98 mmol/L Low 101-111 [facility] Comment on above: Performed By: #### 1 7408332, 9291464, 8465534, 11554977, 07543184, 1850362, 1221508, 4992305 #### [facility] [address] [place] [address] CO2 [Moles/Vol] 26 mmol/L Normal 21-31 [facility] Comment on above: Performed By: #### 1 9746012, 5999664, 3246476, 72879125, 11558173, 1102888, 0153881, 5092152 #### [facility] [address] [place] [address] Creatinine [Mass/Vol] 1.3 mg/dL Normal 0.5-1.3 [facility] Comment on above: Performed By: #### 1 6442968, 5974063, 3630539, 91573449, 85328068, 7165126, 9429617, 4930437 #### [facility] [address] [place] [address] Globulin (S) [Mass/Vol] 2.9 g/dL Normal 1.4-4.0 [facility] Comment on above: Performed By: #### 1 8131062, 0665922, 4901539, 11037640, 17272405, 2630477, 1363535, 1717038 #### [facility] [address] [place] [address] Glucose [Mass/Vol] 134 mg/dL Normal 55-199 [facility] Comment on above: Performed By: #### 1 8440995, 8219597, 8364169, 22440800, 39340934, 8969725, 1550185, 6613683 #### [facility] [address] [place] [address] Potassium [Moles/Vol] 3.7 mmol/L Normal 3.5-5.3 [facility] Comment on above: Performed By: #### 1 0130014, 6754531, 9179603, 85404931, 72272183, 8499158, 2037640, 4362605 #### [facility] [address] [place] [address] Protein [Mass/Vol] 7.5 g/dL Normal 6.0-7.8 [facility] Comment on above: Performed By: #### 1 3733154, 0778134, 4902515, 38936992, 36612657, 8100358, 0986056, 6902225 #### [facility] [address] [place] [address] Sodium [Moles/Vol] 133 mmol/L Low 135-145 [facility] Comment on above: Performed By: #### 1 4329776, 7180026, 6034058, 86644831, 87464177, 7190380, 4308927, 5667688 #### [facility] [address] [place] [address] Urea nitrogen [Mass/Vol] 17 mg/dL Normal 5-21 [facility] Comment on above: Performed By: #### 1 5995888, 8320308, 2760842, 03775995, 89893331, 6666698, 5116376, 8021699 #### [facility] [address] [place] [address] COAGULATIONOrdered By: Harris Clifton on 01-04-2024 aPTT Coag (PPP) [Time] 34.6 s Normal 25.1 - 36.5 second(s) [facility] Comment on above: Interpretive Data: [...] the same coagulation reagent and instrumentation as [facility]. Currently there are no coagulation studies available worldwide for children to 14 days, and no normal ranges. Heparin therapeutic range (represented by Anti-Factor Xa activity of 0.2 - 0.4 U/mL) corresponds to PTT of 56.6 - 109.0 sec. INR Coag (PPP) [Relative time] 1.41 {INR} Invalid Interpretation Code [facility] Comment on above: Interpretive Data: I NR results are specifically intended to assess patients stabilized on long-term Anticoagulation therapy suggested INR s Less Intensive Anticoagulation 2.0 3.0 Conventional Range 3.0 4.5 PT Coag (PPP) [Time] 15.9 s High 9.4 - 1 2.5 second(s) [facility] Comment on above: Interpretive Data: [...] the same coagulation reagent and instrumentation as [facility]. Currently there are no coagulation studies available worldwide for children to 14 days, and no normal ranges. Consent for Treatmenton 12-20 Consent for Treatment [id number] 0TIFF Normal [facility] ED Clinical Summaryon 2023 ED Clinical Summary [address] [id number] ED Clinical Summary Person Information Name: STEVE WILLIAMSON [facility] Age: 58 Years : 1965 Sex: Male Language: [place]ese PCP: DELPHINE BERRY NP Marital Status: Visit Id: Visit Reason: Post surgical problem; Fever; Hematuria; DIFFICULTY URINATING / LOW GRADE FEVER / SENT FROM [facility] Speciality: Acuity: 2 Enc Type: Inpatient Med Service: Emergency Arrival: 01/04/2024 15:24:45 Discharge: LOS: 000 03:12 Checkin: 01/04/2024 15:24:45 Checkout: 01/04/2024 18:36:58 Dispo Type: Admitted as IP to this [facility] EVENTS: Event Name Event Status Request [...] 18:18:37 Patient Care Request 01/04/2024 18:18:37 ADDRESS: [address] [place] [id number] PHYS DOC NOTES: MEDICAL INFORMATION: Prescriptions Given: [...] Instructions: Follow up: DIAGNOSIS: Prostatitis; Sepsis Normal [facility] ED Patient Education Noteon 01-04-2024 ED Patient Education Note Normal [facility] ED Patient Summaryon 024 ED Patient Summary [address] [id number] Patient Discharge Instructions Person Information Name: STEVE WILLIAMSON Age: 58 Years Arrival Date: 01/04/2024 15:24:45 Discharge Diagnosis: Prostatitis; Sepsis Primary Care Physician: KRISTI MENA, [facility] Provider Information Primary Provider: Sara Patel M.D. Advanced Needle Punch Machine Operator Helper:None The exam and treatment you received in the Emergency Department were for an urgent problem and are not intended as complete care. It is important that you follow up with a doctor, nurse practitioner, or physician?s family assistant for ongoing care. If your symptoms [...] opioids can be used to help relieve vgpjzial-ox-szztuf pain and are often prescribed following a [...] be struggling with addiction, tell your health medicare compliance auditor and ask for guidance or call [facility]?S National Helpline at 9-635-668-YJDE. v Source: [place] Department of Health and Human Services/Center for Disease Control & Prevention [facility] Medications Given: Medication Dose Route Sodi (more content not included)... Normal [facility] Influenza A&B Agon Influenzae A Ag Negative Normal Negative [facility] Comment on above: Performed By: #### 1 1848919, 3180969, 4731530, 30277495, 63283162, 5773404, 0112443, 2832233 #### [facility] [address] [place] [address] Influenzae B Ag Negative Normal Negative [facility] Comment on above: Result Comment: Test sensitivity and specificity vary for age group, specimen type, antigen types, and prevalence of disease. Test results must be evaluated in conjunction with other clinical data available to the physician. Individuals who received nasally administered Influenza A vaccine may have positive test results up to 3 days after vaccination. Performed By: #### 1 7960670, 8929338, 9288685, 89100810, 23281202, 0631969, 7105060, 7840306 #### [facility] [address] [place] [address] Laboratory - Microbiology an d Antimicrobial susceptibilityOrdered By: Maryjo Ventura on 01-04-2024 Bacteria identified Cx Nom (U) No growth to date [facility] Lactic Acidon 01-04-2024 Lactic Acid Lvl 1.0 mmol/L Normal 0.5-2.2 [facility] Comment on above: Performed By: #### 2 423892 #### [facility] [address] [place] [address] Lactic Acid Lvl 1.3 mmol/L Normal 0.5-2.2 [facility] Comment on above: Performed By: #### 1 2449202, 1374147, 6401777, 05294196, 31223360, 7879381, 4972171, 6379352 #### [facility] [address] [place] [address] MICRO OTHER TESTSOrdered By: Adriana Rivera on 01-04-2024 Influenzae A Ag Negative (01/04/24 4:24 PM) Normal Negative [facility] Man Sero Influenzae B Ag Negative 1 (01/04/24 4:24 PM) Normal Negative [facility] Comment on above: Interpretive Data: [...] NEG Ctl Pass (01/04/24 4:24 PM) Normal [facility] Man Sero Rapid COV Int POS Ctl Pass (01/04/24 4:24 PM) Normal [facility] Sero SARS-CoV+SARS-CoV-2 (COVID-19) Ag IA.rapid Ql (Resp) Not Detected 6 (01/04/24 4:24 PM) Normal Not Detected [facility] Comment on above: Interpretive Data: T he [employer] System for Rapid Detection of SARS-CoV-2 [...] revoked sooner. Monitor Recordon 01-04-2024 Monitor Record [id number]. 00TIFF Normal [facility] No Panel InformationOrdered By: ANGPROCESSSERVER MICROBIOLOGY on 01-04-2024 Blood Culture Charcoal No growth at 3 da ys. Final to follow at 7 days. [facility] Blood Culture Charcoal No growth at 3 da ys. Final to follow at 7 days. [facility] PT & PTTon 01-04-2024 aPTT Coag (PPP) [Time] 34.6 second(s) Normal 25.1-36.5 [facility] Comment on above: Result Comment: Para meter [...] the same coagulation reagent and instrumentation as [facility]. Currently there are no coagulation studies available worldwide for children to 14 days, and no normal ranges. Heparin therapeutic range (represented by Anti-Factor Xa activity of 0.2 - 0.4 U/mL) corresponds to PTT of 56.6 - 109.0 sec. Performed By: #### 1 2816295, 3250101, 0187425, 80434907, 33486370, 2633998, 5705341, 0136211 #### [facility] [address] [place] [address] INR Coag (PPP) [Relative time] 1.41 {INR} Invalid Interpretation Code [facility] Comment on above: Result Comment: INR results are specifically intended to assess patients stabilized on long-term Anticoagulation therapy suggested INR?s ?Less Intensive Anticoagulation? 2.0 ? 3.0 Conventional Range 3.0 ? 4.5 Performed By: #### 1 2189364, 7111006, 8193291, 07319150, 87841817, 6767223, 7806568, 3032027 #### [facility] [address] [place] [address] PT Coag (PPP) [Time] 15.9 second(s) High 9.4-12.5 [facility] Comment on above: Result Comment: 15 d [...] the same coagulation reagent and instrumentation as [facility]. Currently there are no coagulation studies available worldwide for children to 14 days, and no normal ranges. Performed By: #### 1 0012569, 3982047, 5503205, 14599405, 95703736, 7531361, 5414333, 8948792 #### [facility] [address] [place] [address] Rapid COVID Antigen ([facility])on 01-04-2024 Rapid COV Int NEG Ctl Pass Normal Fis her [facility] Comment on above: Performed By: #### 1 8589632, 6057094, 4848485, 73190417, 65578036, 3580441, 7284545, 3781448 #### [facility] [address] [place] [address] Rapid COV Int POS Ctl Pass Normal Fis her [facility] Comment on above: Performed By: #### 1 8060005, 1412023, 3389155, 42204655, 45923438, 7615549, 5308943, 7977755 #### [facility] [address] [place] [address] SARS-CoV+SARS-CoV-2 (COVID-19) Ag IA.rapid Ql (Resp) Not detected Normal Not Detected [facility] Comment on above: Result Comment: The [employer] System for Rapid Detection of SARS-CoV-2 is [...] or revoked sooner. Performed By: #### 1 6171186, 0012599, 1063376, 40989598, 04922944, 3358866, 2971823, 6756592 #### [facility] [address] [place] [address] Troponinon 01-04-2024 Troponin 8.50 pg/mL Low 15.90-38.40 [facility] Comment on above: Result Comment: The 95% CI (Confidence Interval) PPV (Positive Predictive Value) for myocardial infarction in females is 38 pg/mL, in males 51 pg/mL. The results should be used in conjunction with clinical conditions of myocardial infarction. (Access High Sensitivity Troponin I Instructions For Use, Abby [place], June 2018) Performed By: #### 1 0575078, 9639282, 3380461, 18559644, 50469966, 7754240, 5595977, 9070379 #### [facility] [address] [place] [address] UA With Cult Reflexon 2023 Bacteria LM Ql (Urine sed) TRACE Normal Trace [facility] Comment on above: Performed By: #### 2 546223 #### [facility] [address] [place] [address] Bilirubin Ql (U) 1+ Abnormal Negative [facility] Comment on above: Performed By: #### 2 798572 #### [facility] [address] [place] [address] Clarity (U) CLEAR Normal Clear [facility] Comment on above: Performed By: #### 2 372139 #### [facility] [address] [place] [address] Color (U) YELLOW Normal Yellow [facility] Comment on above: Performed By: #### 2 714507 #### [facility] [address] [place] [address] Epithelial cells.squamous LM.HPF (Urine sed) [#/Area] 0-2 Normal 0-2 [facility] Comment on above: Performed By: #### 2 086377 #### [facility] [address] [place] [address] Glucose Test strip (U) [Mass/Vol] Negative Normal Negative [facility] Comment on above: Performed By: #### 2 170460 #### [facility] [address] [place] [address] Hemoglobin Ql (U) 3+ Abnormal Negative [facility] Comment on above: Performed By: #### 2 408203 #### [facility] [address] [place] [address] Ketones (U) [Mass/Vol] 1+ Abnormal Negative [facility] Comment on above: Performed By: #### 2 866704 #### [facility] [address] [place] [address] Bangs.plasma/Bangs.R BC (Bld) [Mass ratio] 4-20 Normal 0-3 [facility] Comment on above: Performed By: #### 2 847626 #### [facility] [address] [place] [address] Mucus Ql (Urine sed) 1+ Normal Fish er [facility] Comment on above: Performed By: #### 2 138760 #### [facility] [address] [place] [address] Nitrite Ql (U) Negative Normal Negative [facility] Comment on above: Performed By: #### 2 848250 #### [facility] [address] [place] [address] pH (U) 6.0 [pH] Invalid Interpretation Code 5.0-9.0 [facility] Comment on above: Performed By: #### 2 861955 #### [facility] [address] [place] [address] Protein (U) [Mass/Vol] TRACE Abnormal Negative [facility] Comment on above: Performed By: #### 2 875208 #### [facility] [address] [place] [address] Specific gravity (U) [Rel density] 1.025 Invalid Interpretation Code 1.005-1.030 [facility] Comment on above: Performed By: #### 2 786290 #### [facility] [address] [place] [address] Type of Urine collection method Clean Catch Normal [facility] Comment on above: Performed By: #### 2 670746 #### [facility] [address] [place] [address] Urobilinogen Qn (U) 0.2 {Kishan'U}/dL Normal 0.0-1.0 [facility] Comment on above: Performed By: #### 2 054238 #### [facility] [address] [place] [address] WBC Auto Ql (U) Negative Normal Negative [facility] Comment on above: Performed By: #### 2 540078 #### [facility] [address] [place] [address] WBC LM.HPF (Urine sed) [#/Area] 0-5 Normal 0-5 [facility] Comment on above: Performed By: #### 2 838689 #### [facility] [address] [place] [address] URINALYSISOrdered By: Parish Clifton on 01-04-2024 Bacteria [...] Interpretation Code Negative [facility] UA Auto SS Bangs.plasma/Bangs.R BC (Bld) [Mass ratio] 4-20 /HPF Normal [...] [facility] UA Auto SS Urobilinogen Qn (U) 0.0596155 {Kishan'U}/dL Normal 0.0 - 1.0 EU/dL [facility] [...] mGy = na DAP = na Normal [facility] eGFRon 01-04-2024 eGFR 64 mL/min/1.73 m2 Normal >=59 [facility] Comment on above: Order Comment: Order added by Discern Expert. Performed By: #### 1 5958059, 7926938, 0952828, 96497349, 50668265, 2275901, 9706479, 3960744 #### [facility] [address] [place] [address] Consent for Procedure/Surger yon 01-01-2024 Consent for Procedure/Surgery [id number]. 00TIFF [facility] Consent for Treatmenton 12-20 Consent for Treatment [id number] 0TIFF [facility] IntraOperative Documentson 0 01-01-2024 IntraOperative Documents [id number]. 00TIFF [facility] Main OR Intraoperative Recor don 01-01-2024 Main OR Intraoperative Record IntraOp Document Type FTURO Summary Primary Physician: Nadir GARCÍA MD Finalized Date/Time: 01/01/24 10:40:42 Pt. Name: STEVE WILLIAMSON/Sex: 1965 Male Med Rec #: [id number] Physician: Nadir GARCÍA MD Financial #: [id number] Pt. Type: O Room/Bed: / Admit/Disch: 01/01/24 [...] Teena Joya Role Performed Surgeon - Primary Hadoop Engineer - Primary Scrub - Primary Time In [...] By: JOSEPH Villafuerte RN, Ruthann 01/01/24 10:40 [facility] Main OR Preoperative Recordo n 01-01-2024 Main OR Preoperative Record Holding Area Document Type FTURO Summary Primary Physician: Nadir GARCÍA MD Finalized Date/Time: 01/01/24 10:31:15 Pt. Name: STEVE WILLIAMSON.O.B./Sex: 1965 Male Med Rec #: [id number] Physician: Nadir GARCÍA MD Financial #: [id number] Pt. Type: O Room/Bed: / Admit/Disch: 01/01/24 [...] Complaints of Pain: No Skin Integrity Intact, [place], Warm, & Dry Vitals - EU Blood Pressure 133/83 Pulse 63 bpm Respirations 18 br/min SPO2 96 % RN Reviewed Yes Last Modified By: JOSEPH Villafuerte RN, Ruthann 01/01/24 10:31:13 Finalized By: JOSEPH Villafuerte RN, Ruthann Document Signatures Signed By: Johana Casas LPN 01/01/24 10:05 JOSEPH Villafuerte RN, Ruthann 01/01/24 10:31 Normal [facility] Operative Reporton Operative Report Patient: STEVE WILLIAMSON [...] were sent to pathology for evaluation. Normal [facility] Comment on [...] for your post-operative appointment in 1-2 weeks [phone] or [phone] Normal [facility] Prostate Histology ([facility]) on 01-01-2024 PH Method of Extraction Needle Biopsy Normal [facility] Comment on above: Performed By: #### 1 [id number] ####[facility] [id number] [place] [address] PH Number of Jars 2 Invalid Interpretation Code [facility] Comment on above: Performed By: #### 1 [id number] ####[facility] [id number] [place] [address] PH Specimen 1 L Base Prostate Normal [facility] Comment on above: Performed By: #### 1 [id number] ####[facility] [id number] [place] [address] PH Specimen 10 R Lat Bse Prost Normal [facility] Comment on above: Performed By: #### 1 [id number] ####[facility] [id number] [place] [address] PH Specimen 11 R Lat Mid Prost Normal [facility] Comment on above: Performed By: #### 1 [id number] ####[facility] [address] [place] [address] PH Specimen 12 R Lat Apx Prost Normal [facility] Comment on above: Performed By: #### 1 [id number] ####[facility] [id number] [place] [address] PH Specimen 2 L Mid Prostate Normal [facility] Comment on above: Performed By: #### 1 [id number] ####[facility] [address] [place] [address] PH Specimen 3 L Apx Prostate Normal [facility] Comment on above: Performed By: #### 1 [id number] ####[facility] [address] [place] [address] PH Specimen 4 L Lat Bse Prost Normal [facility] Comment on above: Performed By: #### 1 [id number] ####[facility] [address] [place] [address] PH Specimen 5 L Lat Mid Prost Normal [facility] Comment on above: Performed By: #### 1 [id number] ####[facility] [address] [place] [address] PH Specimen 6 L Lat Apx Prost Normal [facility] Comment on above: Performed By: #### 1 [id number] ####[facility] [address] [place] [address] PH Specimen 7 R Base Prostate Normal [facility] Comment on above: Performed By: #### 1 [id number] ####[facility] [address] [place] [address] PH Specimen 8 R Mid Prostate Normal [facility] Comment on above: Performed By: #### 1 [id number] ####[facility] [address] [place] [address] PH Specimen 9 R Apx Prostate Normal [facility] Comment on above: Performed By: #### 1 [id number] ####[facility] [address] [place] [address] PH Type of Service Technical Only Normal [facility] Comment on above: Performed By: #### 1 [id number] ####[facility] [address] [place] [address] Physician Referralon 024 Physician Referral [id number] 0TIFF Normal [facility] Ambulatory Visit Summaryon 0 12-10-2023 Ambulatory Visit Summary STEVE WILLIAMSON :1965 Visit Date:12/10/2023 Ambulatory Visit Instructions Your Diagnosis BPH with urinary obstruction Elevated PSA Tests Performed Urnls Dip Stick Auto w/o Microscopy POC 02714 Your Care Team Attending Physician - Nadir [...] Nadir GARCÍA MD Where: [facility] [place] Normal [facility] Patient Educationon 12-10-19 24 Patient Education Urology [...] Follow these instructions at home: ? Take uoun-uhc-diqfydy and prescription medicines only as told by [...] the medicine (more content not included)... Normal [facility] IntraOperative Documentson 1 01-15-2023 IntraOperative Documents [id number]#1. 00TIFF Normal [facility] Postoperative Documentson Postoperative Documents [id number]#1.0 0TIFF [facility] Reminderson 11-05-2023 Reminders - From: [place] To: [facility] - Reminders/Recalls; Sent: 11/05/2023 10:35:03 EST Show up: 09/19/2026 10:34:00 EST Subject: Ambulatory Reminder Due Date/Time: 10/26/2026 10:34:00 EST Reminder/Recall Repeat colonoscopy in 3 years(2025) due to tubular adeoma Normal [facility] Result Letter Officeon 11-05 Result Letter Office November 05, 2023 STEVE WILLIAMSON [id number] [address] : 1965 Below is a summary of [...] letter prior to your next due date. [facility] [phone] [facility] Main OR Intraoperative Recor don 10-30-2023 Main OR Intraoperative Record IntraOp Document Type FT Summary Primary Physician: Cristóbal Lowe MD Finalized Date/Time: 10/30/23 13:16:26 Pt. Name: STEVE WILLIAMSON/Sex: 1965 Male Med Rec #: [id number] Physician: Cristóbal Lowe MD Financial #: [id number] Pt. Type: O Room/Bed: / Admit/Disch: 10/26/23 [...] Arreola RN, Judy Padron Role Performed Anesthesiologist Hadoop Engineer - Primary Scrub - Primary Building Superintendent Time In 10/26/23 10:09:00 10/26/23 10:09:00 10/26/23 [...] and tissue Entry 1 Skin Integrity Intact, [place], Warm, and Skin Abnormality No Dry Outcomes [...] the p (more content not included)... Normal [facility] Consenton 10-29-2023 Consent [id number]#1. 00TIFF Normal [facility] Discharge Instructionson Discharge Instructions [id number]. 00TIFF Normal [facility] Progress Note-Physicianon Progress Note-Physician Patient: STEVE WILLIAMSON [...] Screen for colon cancer / SNOMED CT 633357587 / Confirmed Knee pain, left / SNOMED CT 55413160 / Confirmed High cholesterol / SNOMED CT 63705672 / Confirmed High cholesterol / SNOMED CT 37941475 / Confirmed Acute glaucoma / SNOMED CT 02047610 / Confirmed Resolved: Plantar fasciitis / SNOMED CT 229137494 RIGHT FOOT Histories Procedure history: Arthroscopy of knee (336650713) on 05/07/2019 at 54 Years. Comments: 05/07/2019 [...] adequate air exchange. Cardiovascular: Regular rhythm. Plan Stateless Society of Anesthesiologists (ASA) physical status classification: Class II. Anesthetic Preoperative Plan: Anesthesia General. [facility] Comment on above: Result Comment: Elec tronically Signed By: Marvel Ibarra Jr, DO\.br\Date and Time Signed: 10/28/23 10:10 EST Progress Note-Physician Patient: STEVE WILLIAMSON Age: 58 years Sex: Male : 1965 Associated Diagnoses: None Author: Marvel Ibarra Jr, DO Postoperative Information Postoperative disposition: Postoperative disposition: To PACU. Optimetrix number: Optimetrix number [id number]. Anesthetic utilized: General. Health Status Allergies: Allergic [...] when meets criteria ( To home ). [facility] Comment on above: Result Comment: Elec tronically Signed By: Fred Kaur DO, Marvel Morton\.br\Date and Time Signed: 10/28/23 10:09 EST Consent for Treatmenton Consent for Treatment [id number] 0TIFF [facility] Discharge Instructionson Discharge Instructions STEVE WILLIAMSON :1965 [...] acetaminophen (Tylenol 325 mg Tab) acetaminophen-hydrocod one (Basalt 325 mg-5 mg oral tablet) ascorbic acid [...] LEVIN, Nadir Mercado Where: [facility] Comment on above: Result Comment: Elec [...] Education and Follow-up: Counseled: Patient, Family. Normal [facility] Comment on above: Result Comment: Elec tronically Signed By: Mynor LEVIN, Cristóbal Winkler\.br\Date and Time Signed: 10/26/23 10:32 EST Inpatient Patient Summaryon 10-26-2023 Inpatient Patient Summary [place] [id number] [facility] Clinical Discharge Instructions PERSON INFORMATION Name: STEVE WILLIAMSON PHYSICIANS Admitting Physician: Cristóbal Lowe MD Attending Physician: Cristóbal Lowe MD PCP: KRISTI MENA, [facility] Discharge Diagnosis: Colon cancer screening Comment: PATIENT EDUCATION INFORMATION Instructions: Colonoscopy, Care After Surgery Salam (CUSTOM); Diverticulosis MAGR (CUSTOM); Hemorrhoids; Colon Polyps Medication Leaflets: Follow up: With: Address: When: Cristóbal Lowe [address] [place] [address], [facility] [address], [place] [phone] Business (1) Comments: office will calll for follow up Type Location Start Finish State [facility] New Patient [facility] Mandeep 12/10/2023 11:00 AM 12/10/2023 11:15 AM Confirmed MEDICATION LIST Medications to Continue with No Changes Other Medications acetaminophen (Tylenol 325 mg Tab) 2 Tablets By Mouth as needed as needed for pain. acetaminophen-hydrocod one (Basalt 325 mg-5 mg oral tablet) 1 - [...] Tablets By Mouth every day. Comment: Normal [facility] Main OR PACU I Recordon 12-0 Main OR PACU I Record PACU Phase I Docum ent Type FT Summary Primary Physician: Cristóbal Lowe MD Finalized Date/Time: 10/26/23 12:44:34 Pt. Name: STEVE WILLIAMSON Selene Perrin/Sex: 1965 Male Med Rec #: [id number] Physician: Cristóbal Lowe MD Financial #: [id number] Pt. Type: O Room/Bed: / Admit/Disch: 10/26/23 [...] By: Sarah Mendoza RN 10/26/23 12:44 Normal [facility] Main OR Preoperative Recordo n 10-26-2023 Main OR Preoperative Record Holding Area Document Type FT Summary Primary Physician: Cristóbal Lowe MD Finalized Date/Time: 10/26/23 09:20:33 Pt. Name: STEVE WILLIAMSON/Sex: 1965 Male Med Rec #: [id number] Physician: Cristóbal Lowe MD Financial #: [id number] Pt. Type: O Room/Bed: / Admit/Disch: 10/26/23 [...] By: Pati Arreola RN 10/26/23 09:20 Normal [facility] Monitor Recordon 10-26-2023 Monitor Record [id number]. 00TIFF Normal [facility] Monitor Record [id number]#1. 00TIFF Normal [facility] Outpatient Surgery Discharge Instructionon 10-26-2023 Outpatient Surgery Discharge Instruction [address] [address] Patient Discharge Instructions PERSON INFORMATION [...] Follow up: With: Address: When: Cristóbal Lowe [address] [place] [address] Aimee, [facility] [address] [phone] [facility] (1) Comments: office will calll for follow up Type Location Start Finish State [facility] New Patient [facility] [place] 12/10/2023 11:00 AM 12/10/2023 11:15 AM Confirmed Pharmacy Information: [facility] Stre[facility] , Mail Order You may receive a survey from [employer] asking you to rate your care experience. Your feedback is important and will help us understand what we do well and how we can improve the quality of care we provide to you, your loved ones and our community. It?s an honor to serve you. Thank you for choosing [facility] HERE ARE THE MEDICATION CHANGES THAT OCCURRED DURING YOUR HOSPITAL STAY Medications to Continue with No Changes Other Medications acetaminophen (Tylenol 325 mg Tab) 2 Tablets By Mouth as needed as needed for pain. acetaminophen-hydrocod one (Basalt 325 mg-5 mg oral tablet) 1 - [...] more than (more content not included)... Normal [facility] Patient Education - Texton 1 12-27-2022 Patient [...] unsweetened, w/added ascorbic acid 1 cup 0.5 [place] 1 cup 0.7 Vegetables Cooked Green beans 1 cup 4.0 Carrots 1/2 cup sliced 2.3 Peas 1 cup 8.8 Potato (baked, with skin) 1 medium potato 3.8 Raw [place] (with peel) 1 cucumber 1.5 Lettuce 1 [...] 8.7 Peanuts 1/2 cup 7.9 [facility] SEEK IMMEDIATE MEDIC (more content not included)... Normal [facility] Insurance Correspondenceon 12-15-2022 Insurance Correspondence [id number]#1. 00TIFF [facility] Consent for Procedure/Surger yon 08-29-2023 Consent for Procedure/Surgery [id number]. 00TIFF [facility] Ambulatory Visit Summaryon 1 Ambulatory Visit Summary STEVE WILLIAMSON :1965 Visit Date:08/28/2023 Ambulatory Visit Instructions Your Diagnosis Screen for colon cancer Your Care Team Attending Physician - Jennifer Guan CNP Primary Care Physician - KRISTI MENA, DELPHINE Referring Physician - ARNOLD MOYA MD This Is Your Medications List Contact prescribing physician if questions or concerns acetaminophen (Tylenol 325 mg Tab) acetaminophen-hydrocod one (Basalt 325 mg-5 mg oral tablet) ascorbic acid [...] if questions or concerns Unchanged acetaminophen-hydrocod one (Basalt 325 mg-5 mg oral tablet) See instructions [...] including vitamins, herbs, eye drops, creams, and ylxx-qck-nqducru medicines. ? Any problems you or family [...] may incl (more content not included)... Normal [facility] Gastroenterology Office/Clin ic Noteon 08-28-2023 Gastroenterology Office/Clinic [...] prep. Follow-up With When Contact Information Freida BUSINESS RISK ANALYST, Jennifer A Within 1 to 2 weeks [...] drop(s), OPTH, Once a day (at bedtime) Basalt 325 mg-5 mg oral tablet, See Instructions, [...] BNT-162b2 vax 02/09/2021 Recorded 2023-08-27: TPV50 Normal [facility] Comment on above: Result Comment: Elec tronically Signed By: Freida LECHUGA, Jennifer Morton\julisa\Date and Time Signed: 08/28/23 15:42 EDT Physician Orderon 08-23-2023 Physician Order [id number] 0CD:127 Normal [facility] Physician Referralon 023 Physician Referral [id number] 0CD:127 Normal [facility] Auto Diffon 08-21-2023 Basophils/100 WBC (Bld) 0.5 % Normal 0.0-2.0 F [facility] Comment on above: Order Comment: Order Added by Discern Expert. Performed By: #### 2 [id number] #### [facility] Laboratory [address] [place] [address] Basophils/Leukocytes Auto (Bld) [Pure # fraction] 0.0 E9/L Normal 0.0-0.2 [facility] Comment on above: Order Comment: Order Added by Discern Expert. Performed By: #### 2 [id number] #### [facility] [address] [place] [address] Eosinophils/100 WBC (Bld) 2.2 % Normal 0.0-8.0 [facility] Comment on above: Order Comment: Order Added by Discern Expert. Performed By: #### 2 [id number] #### [facility] [address] [place] [address] Eosinophils/Leukocytes Auto (Bld) [Pure # fraction] 0.1 E9/L Normal 0.0-0.5 [facility] Comment on above: Order Comment: Order Added by Discern Expert. Performed By: #### 2 229968 #### [facility] [address] [place] [address] Lymphocytes/100 WBC (Bld) 22.9 % Normal 14.0-50.0 [facility] Comment on above: Order Comment: Order Added by Discern Expert. Performed By: #### 2 656192 #### [facility] [address] [place] [address] Lymphocytes/Leukocytes Auto (Bld) [Pure # fraction] 1.4 E9/L Normal 1.0-4.0 [facility] Comment on above: Order Comment: Order Added by Discern Expert. Performed By: #### 2 954425 #### [facility] [address] [place] [address] Monocytes/100 WBC (Bld) 9.4 % Normal 4.0-14.0 [facility] Comment on above: Order Comment: Order Added by Discern Expert. Performed By: #### 2 058030 #### [facility] [address] [place] [address] Monocytes/Leukocytes Auto (Bld) [Pure # fraction] 0.6 E9/L Normal 0.2-1.0 [facility] Comment on above: Order Comment: Order Added by Discern Expert. Performed By: #### 2 797997 #### [facility] [address] [place] [address] Neutrophils/100 WBC (Bld) 65.0 % Normal 36.0-75.0 [facility] Comment on above: Order Comment: Order Added by Discern Expert. Performed By: #### 2 542120 #### [facility] [address] [place] [address] Neutrophils/Leukocytes Auto (Bld) [Pure # fraction] 3.9 E9/L Normal 2.0-7.5 [facility] Comment on above: Order Comment: Order Added by Discern Expert. Performed By: #### 2 625713 #### [facility] [address] [place] [address] CBC w/ Auto Diffon Erythrocyte distribution width (RBC) [Ratio] 12.6 % Normal 10.9-14.2 [facility] Comment on above: Performed By: #### 1 1540398, 2635759, 2009440, 715945254, 42892457, 4151691, 8112598, 90653279 ####[facility] [address] [place] [address] Hematocrit (Bld) [Volume fraction] 45.8 % Normal 37.7-49.0 [facility] Comment on above: Performed By: #### 1 0008766, 8237517, 7710487, 121820704, 86025984, 9679378, 5483498, 53402971 ####[facility] [address] [place] [address] Hemoglobin (Bld) [Mass/Vol] 16.1 g/dL Normal 13.5-17.5 [facility] Comment on above: Performed By: #### 1 6684108, 9056436, 7376552, 038867821, 98766601, 4110205, 0917821, 98916462 ####[place] [address] [place] [address] MCH (RBC) [Entitic mass] 32.8 pg Normal 27.0-34.0 [facility] Comment on above: Performed By: #### 1 9786781, 7047643, 4614895, 129356731, 51568353, 2788032, 7427261, 25830849 ####[place] [address] [place] [address] MCHC (RBC) [Mass/Vol] 35.1 g/dL Normal 31.4-36.0 [facility] Comment on above: Performed By: #### 1 1406557, 7885103, 1160394, 681177631, 50050376, 1296827, 5667142, 79374365 ####[place] [address] [place] [address] MCV (RBC) [Entitic vol] 93.5 fL Normal 80.0-100.0 F [facility] Comment on above: Performed By: #### 1 5735937, 2768866, 5374231, 610792361, 44920457, 8123571, 5254160, 44884347 ####[place] [address] [place] [address] Platelet mean volume (Bld) [Entitic vol] 10.0 fL Normal 6.4-10.8 [facility] Comment on above: Performed By: #### 1 3186324, 0502150, 3259201, 007411968, 01906756, 9967763, 8884467, 27738135 ####[place] [address] [place] [address] Platelets (Bld) [#/Vol] 137.0 E9/L Low 150.0-500.0 [facility] Comment on above: Performed By: #### 1 5983905, 0103285, 2597104, 051246799, 77707559, 1550701, 4040371, 13099545 ####[address] [address] RBC (Bld) [#/Vol] 4.9 E12/L Normal 4.3-5.9 [facility] Comment on above: Performed By: #### 1 8780074, 6458194, 3215757, 641188815, 18224162, 8423734, 5245893, 86274316 ####[address] [address] WBC corrected for nucl RBC Auto (Bld) [#/Vol] 6.0 E9/L Normal 4.0-11.0 [facility] Comment on above: Performed By: #### 1 7677692, 7460071, 0409415, 674496998, 24007303, 1741326, 3347673, 40635709 ####[address] [address] CMPon 08-21-2023 Albumin [Mass/Vol] 4.7 g/dL Normal 3.3-5.0 [facility] Comment on above: Performed By: #### 1 1038367, 9283621, 9012816, 110812791, 91129958, 1925231, 3976240, 26102306 ####[place] [address] [place] [address] Albumin/Globulin (S) [Mass conc ratio] 1.7 Normal 1.1-2.2 [facility] Comment on above: Performed By: #### 1 0115262, 1300389, 7810855, 614974387, 76694854, 6998881, 5393133, 66500575 ####[place] [address] [place] [address] ALP [Catalytic activity/Vol] 45 Int._Unit/L Normal 21-98 [facility] Comment on above: Performed By: #### 1 2397528, 0789647, 0151007, 064938462, 99378692, 7410708, 5138623, 10252050 ####[place] [address] [place] [address] ALT No additional P-5'-P [Catalytic activity/Vol] 31 Int._Unit/L Normal 6-46 [facility] Comment on above: Performed By: #### 1 1826907, 8948157, 2883576, 248418038, 77303460, 2735671, 5390846, 08605565 ####[place] [address] [place] [address] Anion gap [Moles/Vol] 13 mmol/L Normal 6-16 [facility] Comment on above: Performed By: #### 1 0429146, 3117816, 5590842, 079548636, 69914561, 0133737, 1952721, 99926020 ####[place] [address] [place] [address] AST [Catalytic activity/Vol] 26 Int._Unit/L Normal 5-43 [facility] Comment on above: Performed By: #### 1 8724314, 0713089, 3065111, 016875632, 53590470, 8065126, 8506104, 86124502 ####[place] [address] [place] [address] Bilirubin [Mass/Vol] 0.6 mg/dL Normal 0.0-1.1 [facility] Comment on above: Performed By: #### 1 3393333, 9909552, 7481945, 552812322, 42457945, 5797271, 2515240, 81332308 ####[facility] [address] [place] [address] Calcium [Mass/Vol] 9.9 mg/dL Normal 8.9-11.1 [facility] Comment on above: Performed By: #### 1 4411951, 2513948, 5705877, 544759495, 36322418, 9510292, 3965964, 41247903 ####[facility] [address] [place] [address] Chloride [Moles/Vol] 109 mmol/L Normal 101-111 [facility] Comment on above: Performed By: #### 1 4453709, 7648781, 6179868, 587551087, 08368453, 6006730, 5473384, 89356509 ####[facility] [address] [place] [address] CO2 [Moles/Vol] 26 mmol/L Normal 21-31 [facility] Comment on above: Performed By: #### 1 8443624, 7484911, 8965335, 976117539, 71493709, 8561418, 2123532, 13542786 ####[facility] [address] [place] [address] Creatinine [Mass/Vol] 0.9 mg/dL Normal 0.5-1.3 [facility] Comment on above: Performed By: #### 1 6992867, 7088675, 1226180, 129525760, 31688460, 2078321, 0783507, 19254994 ####[facility] [address] [place] [address] Globulin (S) [Mass/Vol] 2.8 g/dL Normal 1.4-4.0 F [facility] Comment on above: Performed By: #### 1 0200719, 0608125, 9954866, 381817761, 94084105, 4445860, 8584715, 22018024 ####[facility] [address] [place] [address] Glucose [Mass/Vol] 105 mg/dL Normal 55-199 [facility] Comment on above: Result Comment: If t his glucose result represents a fasting glucose, interpretation should refer to the following reference range: 55-99 mg/dL Performed By: #### 1 2119482, 6200102, 8651824, 038509799, 91233146, 4626934, 4459723, 49649670 ####[facility] [address] [place] [address] Potassium [Moles/Vol] 4.2 mmol/L Normal 3.5-5.3 [facility] Comment on above: Performed By: #### 1 1211896, 5703986, 5643466, 599595314, 03129140, 7110009, 3466439, 72147694 ####[facility] [address] [place] [address] Protein [Mass/Vol] 7.5 g/dL Normal 6.0-7.8 [facility] Comment on above: Performed By: #### 1 1382869, 4243206, 0241183, 768815622, 99698716, 4083197, 5300778, 80703600 ####[facility] [address] [place] [address] Sodium [Moles/Vol] 144 mmol/L Normal 135-145 [facility] Comment on above: Performed By: #### 1 8626026, 5686682, 6456500, 519285550, 62027174, 0756723, 6314933, 95723287 ####[facility] [address] [place] [address] Urea nitrogen [Mass/Vol] 20 mg/dL Normal 5-21 [facility] Comment on above: Performed By: #### 1 8199837, 3317944, 5773944, 720581173, 89251129, 7881197, 8763687, 49022186 ####[facility] [address] [place] [address] Urea nitrogen/Creatinine [Mass ratio] 22 No Units High 09-07 [facility] Comment on above: Performed By: #### 1 7353689, 8739905, 7290032, 160257563, 68467131, 8807958, 8986273, 92800842 ####[facility] [address] [place] [address] Consent for Treatmenton Consent for Treatment [id number] 0CD:127 Normal [facility] PlfZ6qhp 08-21-2023 HbA1c (Bld) [Mass fraction] 5.2 % Normal <=5.9 [facility] Comment on above: Performed By: #### 1 6008614, 1814319, 5101513, 931039927, 23686849, 9368856, 9199871, 40951256 ####[facility] [address] [place] [address] Lipid Panelon 08-21-2023 Cholesterol [Mass/Vol] 138 mg/dL Normal 120-200 [facility] Comment on above: Performed By: #### 1 8204312, 3015995, 5477023, 959451264, 27320209, 3976332, 9283104, 16438694 ####[facility] [address] [place] [address] Cholesterol in HDL [Mass/Vol] 39 mg/dL Invalid Interpretation Code [facility] Comment on above: Result Comment: HDL > or equal to 60 mg/dL: Low cardiovascular risk HDL < 40 mg/dL : High cardiovascular risk Performed By: #### 1 7503698, 9056422, 6976123, 055625795, 61746453, 5556208, 6440228, 15896394 ####[facility] [address] [place] [address] Cholesterol in LDL [Mass/Vol] 69 mg/dL Normal <=129 [facility] [facility] Comment on above: Performed By: #### 1 [id number], [id number], [id number], [id number], [id number], 9199937, 1687002, [id number] ####[facility] [id number] [place] [address] Cholesterol in VLDL [Mass/Vol] 19 mg/dL Normal 7-40 [facility] Comment on above: Performed By: #### 1 [id number], [id number], [id number], [id number], [id number], 1079058, [id number], [id number] ####[facility] [id number] [place] [address] Triglyceride [Mass/Vol] 97 mg/dL Normal <=149 F [facility] Comment on above: Performed By: #### 1 [id number], [id number], 6742674, [id number], [id number], 0873744, 9717955, [id number] ####[facility] [id number] [place] [address] PSA Screen, Totalon 08-21-20 23 Prostate specific Ag [Mass/Vol] 5.4 ng/mL High 0.1-3.5 [facility] Comment on above: Result Comment: The concentration of PSA determined by different manufacturers can vary due to differences in assay methods and reagent specificity. Values obtained from different assay methods cannot be used interchangeably. The methodology used for this result was chemiluminescence using Victoria Plumb's Access Hybritech PSA reagent. Performed By: #### 1 [id number], [id number], [id number], [id number], [id number], 1485029, 7372638, [id number] ####[facility] [id number] [place] [address] Physician Orderon 08-21-2023 Physician Order [id number] CD:127 Normal [facility] TSH With T4fr Reflexon 08-21 TSH Qn 1.19 m[IU]/L Normal 0.34-5.60 [facility] Comment on above: Performed By: #### 1 [id number], [id number], 6505173, [id number], 58355629, 0809716, 5024192, 56001076 ####[facility] [id number] [place] [address] eGFRon 08-21-2023 GFR/1.73 sq M.predicted among non-blacks MDRD (S/P/Bld) [Vol rate/Area] 100 mL/min/1.73 m2 Normal >=59 [facility] Comment on above: Order Comment: Order added by Discern Expert. Result Comment: Joiner Helper richard kidney disease could be indicated at eGFR's of less than 60 mL/min/1.73m2. Kidney failure is indicated at less than 15 mL/min/1.73m2. Performed By: #### 1 [id number], [id number], [id number], [id number], [id number], 6593859, 8594725, [id number] ####[facility] [id number] [place] [address] Lab Miscellaneous-LCon 08-15 Lab Miscellaneous COMMENT Invalid Interpretation Code [facility] Comment on above: Result Comment: Test Ordered: [id number] G6PD,Qn,Bld and Hgb Hemoglobin 15.9 g/dL CB [...] weeks following a hemolytic event. Performed at: [facility] [id number] PhD Jefferson Jauregui Performed By: #### 1 [id number], 3199553, 6876552, [id number], 14576143, 0012511, 9088105, [id number] #### [facility] [address] [place] [address] Consent for Treatmenton 07-21 Consent for Treatment [id number] 0CD:127 Normal [facility] Lab Miscellaneous-LCon 08-10 Test Code 944101 Invalid Interpretation Code [facility] Comment on above: Performed By: #### 1 [id number], 2591482, 9868410, 74583925, 40890094, 7100426, 7126699, 4161925 #### [facility] [address] [place] [address] Test Name G6PD Invalid Interpretation Code [facility] Comment on above: Performed By: #### 1 [id number], 3324934, 7912567, 63226441, 83867591, 0233720, 5646414, 3428576 #### [facility] [address] [place] [address] Physician Orderon 08-10-2023 Physician Order [id number] CD:127 Normal [facility] Reference Laboratory Testing Ordered By: Perla Walton on 08-10-2023 Test Code 635540 Invalid Interpretation Code [facility]Outs[facility] Test Name G6PD Invalid Interpretation Code [facility] XR Knee - right 4 Viewson Body surface area Derived from formula 2 m2 [employer] [facility] Xrays of the right knee demonstrating no acute abnormalities, well preserved articulations. [facility] X-rays, 4 views of t he right [...] patellofemoral compartment demonstrates no evidence of osteoarthrosis. [facility] XR Knee - right 4 [facility] Radiology Study observation (narrative) [facility] CHEMISTRYOrdered By: SYSTEM SYSTEM on 03-17-2022 Albumin [...] rate/Area] mL/min/1.73 m2 Normal >=59mL/min/ 1.73 m2 [facility] Chem S GFR/1.73 sq M.predicted among non-blacks MDRD (S/P/Bld) [Vol rate/Area] mL/min/1.73 m2 Normal >=59mL/min/ 1.73 m2 [facility] Chem S Globulin (S) [Mass/Vol] 2.9 g/dL [...] (Bld) [Mass fraction] 5.3 % Normal <=5.9% [facility] ChemAutoSS HEMATOLOGYOrdered By: SYSTEM SYSTEM on 03-17-2022 [...] 7.0 E9/L Normal 4.0 - 11.0 E9/L [facility] HemeAutoSS POCT OCCULT BLOOD STOOLon Hemoglobin.gastrointesti nal Ql (Stl) Negative [facility] Interpretation and review of laboratory results Normal [facility] POCT OCCULT BLOOD STOOLon Hemoglobin.gastrointesti nal Ql (St) Negative [facility] Interpretation and review of laboratory results Normal [facility] Vital Signs Date Time Vital Sign Value Performing Clinician Facility 03-17-2024 12:54-0400 Blood Pressure Location Nadir GARCÍA [facility] 03-17-2024 12:54-0400 Body temperature 98.6 [degF] Nadir GARCÍA [facility] 03-17-2024 12:54-0400 Diastolic blood pressure 78 mm[Hg] Nadir GARCÍA [facility] 03-17-2024 12:54-0400 Heart rate 98 /min Nadir GARCÍA [facility] 03-17-2024 12:54-0400 Systolic blood pressure 118 mm[Hg] Nadir GARCÍA [facility] 03-12-2024 11:34-0400 Body height 175.3 cm Delphine Christiandarrenirak AUTOMATION CONSULTANT-BUSINESS RISK ANALYST Work Phone: [facility] 03-12-2024 11:34-0400 Body mass index (BMI) [Ratio] 28.97 kg/m2 Delphine Garciaubachik AUTOMATION CONSULTANT-BUSINESS RISK ANALYST Work Phone: [facility] 03-12-2024 11:34-0400 Body temperature 98.1 [degF] Delphine Christianubachik AUTOMATION CONSULTANT-BUSINESS RISK ANALYST Work Phone: [facility] 03-12-2024 11:34-0400 Body weight 89 kg Delphine Trubachik AUTOMATION CONSULTANT-BUSINESS RISK ANALYST Work Phone: [facility] 03-12-2024 11:34-0400 Diastolic blood pressure 64 mm[Hg] Delphine Berry AUTOMATION CONSULTANT-BUSINESS RISK ANALYST Work Phone: [facility] 03-12-2024 11:34-0400 Heart rate 73 /min Delphine Riverk AUTOMATION CONSULTANT-BUSINESS RISK ANALYST Work Phone: [facility] 03-12-2024 11:34-0400 Respiratory rate 18 /min Delphine Berry AUTOMATION CONSULTANT-BUSINESS RISK ANALYST Work Phone: [facility] 03-12-2024 11:34-0400 SaO2% (BldA) [Mass fraction] 97 % Delphine Berry AUTOMATION CONSULTANT-BUSINESS RISK ANALYST Work Phone: [facility] 03-12-2024 11:34-0400 Systolic blood pressure 104 mm[Hg] Delphine Berry AUTOMATION CONSULTANT-BUSINESS RISK ANALYST Work Phone: [facility] 03-10-2024 13:31-0400 Body height 176.53 cm [facility] 03-10-2024 13:31-0400 Body mass index (BMI) [Ratio] 27.6 kg/m2 [facility] 03-10-2024 13:31-0400 Body temperature 97.1 [degF] [facility] 03-10-2024 13:31-0400 Body weight 86.18 kg [facility] 03-10-2024 13:31-0400 Diastolic blood pressure 76 mm[Hg] [facility] 03-10-2024 13:31-0400 Heart rate 76 /min [facility] 03-10-2024 13:31-0400 Systolic blood pressure 112 mm[Hg] [facility] 02-11-2024 13:04-0400 Body height 175.3 cm Delphine Berry AUTOMATION CONSULTANT-BUSINESS RISK ANALYST Work Phone: [facility] 02-11-2024 13:04-0400 Body mass index (BMI) [Ratio] 28.12 kg/m2 Delphine Berry AUTOMATION CONSULTANT-BUSINESS RISK ANALYST Work Phone: [facility] 02-11-2024 13:04-0400 Body temperature 98.2 [degF] Delphine Berry AUTOMATION CONSULTANT-BUSINESS RISK ANALYST Work Phone: [facility] 02-11-2024 13:04-0400 Body weight 86.36 kg Delphine Berry AUTOMATION CONSULTANT-BUSINESS RISK ANALYST Work Phone: [facility] 02-11-2024 13:04-0400 Diastolic blood pressure 70 mm[Hg] Delphine Berry AUTOMATION CONSULTANT-BUSINESS RISK ANALYST Work Phone: [facility] 02-11-2024 13:04-0400 Heart rate 79 /min Delphine Berry AUTOMATION CONSULTANT-BUSINESS RISK ANALYST Work Phone: [facility] 02-11-2024 13:04-0400 Respiratory rate 18 /min Delphine Riverk AUTOMATION CONSULTANT-BUSINESS RISK ANALYST Work Phone: [facility] 02-11-2024 13:04-0400 SaO2% (BldA) [Mass fraction] 97 % Delphinerom Berry AUTOMATION CONSULTANT-BUSINESS RISK ANALYST Work Phone: [facility] 02-11-2024 13:04-0400 Systolic blood pressure 124 mm[Hg] Delphine Berry AUTOMATION CONSULTANT-BUSINESS RISK ANALYST Work Phone: [facility] 01-29-2024 14:25-0400 Hourly Rounding [facility] 01-29-2024 14:25-0400 Promise to Return [facility] 01-29-2024 14:00-0400 Blood Pressure Location [facility] 01-29-2024 14:00-0400 Diastolic blood pressure 74 mm[Hg] [facility] 01-29-2024 14:00-0400 Heart rate 56 /min [facility] 01-29-2024 14:00-0400 Mean blood pressure 93 mm[Hg] [facility] 01-29-2024 14:00-0400 Respiratory rate 18 /min [facility] 01-29-2024 14:00-0400 Systolic blood pressure 130 mm[Hg] [facility] 01-29-2024 13:45-0400 Hourly Rounding [facility] 01-29-2024 13:45-0400 [facility] 01-29-2024 12:15-0400 Hourly Rounding [facility] 01-29-2024 12:15-0400 Promise to Return [facility] 01-29-2024 11:47-0400 Heart rate 66 /min [facility] 01-29-2024 11:47-0400 SaO2% (BldA) [Mass fraction] 95 % [facility] 01-29-2024 11:47-0400 Diastolic blood pressure 77 mm[Hg] [facility] 01-29-2024 11:47-0400 Mean blood pressure 95 mm[Hg] [facility] 01-29-2024 11:47-0400 Systolic blood pressure 131 mm[Hg] [facility] 01-29-2024 11:46-0400 Body temperature 97.7 [degF] [facility] 01-29-2024 08:37-0400 SaO2% (BldA) [Mass fraction] 96 % [facility] 01-29-2024 07:29-0400 Heart rate 52 /min [facility] 01-29-2024 07:29-0400 SaO2% (BldA) [Mass fraction] 96 % [facility] 01-29-2024 07:28-0400 Body temperature 98.06 [degF] [facility] 01-29-2024 07:28-0400 Diastolic blood pressure 79 mm[Hg] [facility] 01-29-2024 07:28-0400 Mean blood pressure 97 mm[Hg] [facility] 07:28-0400 Systolic blood pressure 135 mm[Hg] [facility] 01-28-2024 20:14-0400 Mean blood pressure 92 mm[Hg] [facility] 01-28-2024 19:15-0400 Respiratory rate 18 /min [facility] 01-28-2024 02:10-0400 [facility] 01-28-2024 02:10-0400 Mean blood pressure 90 mm[Hg] [facility] 01-28-2024 02:10-0400 Respiratory rate 18 /min [facility] 01-26-2024 04:00-0500 Mean blood pressure 74 mm[Hg] [facility] 01-26-2024 00:11-0500 Heart rate 85 /min [facility] 01-25-2024 21:48-0500 [facility] 01-25-2024 21:48-0500 Heart rate 84 /min [facility] 01-25-2024 15:43-0500 Respiratory rate 17 /min [facility] 01-25-2024 13:54-0500 Heart rate 88 /min [facility] 01-18-2024 11:24-0500 Blood Pressure Location Nadir GARCÍA [facility] 01-18-2024 11:24-0500 Diastolic blood pressure 70 mm[Hg] Nadir GARCÍA [facility] 01-18-2024 11:24-0500 Heart rate 68 /min Nadir GARCÍA [facility] 01-18-2024 11:24-0500 Respiratory rate 16 /min Nadir GARCÍA [facility] 01-18-2024 11:24-0500 Systolic blood pressure 116 mm[Hg] Nadir GARCÍA [facility] 01-10-2024 11:00-0500 Diastolic blood pressure 70 mm[Hg] Amauri Tran [facility] 01-10-2024 11:00-0500 Heart rate 65 /min Amauri Tran [facility] 01-10-2024 11:00-0500 Mean blood pressure 81 mm[Hg] Amauri Marc [facility] 01-10-2024 11:00-0500 SaO2% (BldA) [Mass fraction] 96 % Amauri Tran [facility] 01-10-2024 11:00-0500 Systolic blood pressure 102 mm[Hg] Amauri Tran [facility] 01-10-2024 10:30-0500 Diastolic blood pressure 71 mm[Hg] Amauri Marc [facility] 01-10-2024 10:30-0500 Heart rate 63 /min Amauri Marc [facility] 01-10-2024 10:30-0500 Mean blood pressure 83 mm[Hg] Amauri Marc [facility] 01-10-2024 10:30-0500 Respiratory rate 17 /min Amauri Tran [facility] 01-10-2024 10:30-0500 SaO2% (BldA) [Mass fraction] 95 % Amauri Tran [facility] 01-10-2024 10:30-0500 Systolic blood pressure 108 mm[Hg] Amauri Tran [facility] 01-10-2024 09:58-0500 Body temperature 98.96 [degF] Amauri Tran [facility] 01-10-2024 09:58-0500 Diastolic blood pressure 84 mm[Hg] Amauri Tran [facility] 01-10-2024 09:58-0500 Heart rate 67 /min Amauri Tran [facility] 01-10-2024 09:58-0500 SaO2% (BldA) [Mass fraction] 98 % Amauri Tran [facility] 01-10-2024 09:58-0500 Systolic blood pressure 130 mm[Hg] Amauri Tran [facility] 01-07-2024 11:00-0500 Blood Pressure Location Rod Nixrowena [facility] 01-07-2024 11:00-0500 Body temperature 98.24 [degF] Rod Brown [facility] 01-07-2024 11:00-0500 Diastolic blood pressure 78 mm[Hg] Rod Paster [facility] 01-07-2024 11:00-0500 Heart rate 99 /min Rod Brown [facility] 01-07-2024 11:00-0500 Hourly Rounding Rod Paster [facility] 01-07-2024 11:00-0500 Mean blood pressure 93 mm[Hg] Rod Nixr [facility] 01-07-2024 11:00-0500 Respiratory rate 18 /min Rod Paster [facility] 01-07-2024 11:00-0500 SaO2% (BldA) [Mass fraction] 98 % Rod Paster [facility] 01-07-2024 11:00-0500 Systolic blood pressure 122 mm[Hg] Rod Paster [facility] 01-07-2024 10:27-0500 Hourly Rounding Rod Paster [facility] 01-07-2024 10:27-0500 Promise to Return Rod Paster [facility] 01-07-2024 09:04-0500 Hourly Rounding Rod Paster [facility] 01-07-2024 09:04-0500 Promise to Return Rod Paster [facility] 01-07-2024 08:24-0500 Promise to Return Rod Paster [facility] 01-07-2024 08:00-0500 Diastolic blood pressure 85 mm[Hg] Rod Paster [facility] 01-07-2024 08:00-0500 Heart rate 65 /min Rod Paster [facility] 01-07-2024 08:00-0500 Mean blood pressure 101 mm[Hg] Rod Paster [facility] 01-07-2024 08:00-0500 SaO2% (BldA) [Mass fraction] 99 % Rod Paster [facility] 01-07-2024 08:00-0500 Systolic blood pressure 133 mm[Hg] Rod Paster [facility] 01-07-2024 00:20-0500 Body temperature 97.88 [degF] Rod Paster [facility] 01-07-2024 00:20-0500 Diastolic blood pressure 66 mm[Hg] Rod Paster [facility] 01-07-2024 00:20-0500 Heart rate 61 /min Rod Paster [facility] 01-07-2024 00:20-0500 SaO2% (BldA) [Mass fraction] 98 % Rod Paster [facility] 01-07-2024 00:20-0500 Systolic blood pressure 118 mm[Hg] Rod Paster [facility] 01-06-2024 19:55-0500 Mean blood pressure 86 mm[Hg] Rod Paster [facility] 01-06-2024 16:48-0500 Respiratory rate 18 /min Rod Paster [facility] 01-06-2024 16:47-0500 Mean blood pressure 89 mm[Hg] Rod Paster [facility] 01-06-2024 11:47-0500 Mean blood pressure 86 mm[Hg] Rod Paster [facility] 01-05-2024 04:00-0500 Blood Pressure Location Rod Paster [facility] 01-05-2024 04:00-0500 Mean blood pressure 81 mm[Hg] Rod Paster [facility] 01-05-2024 04:00-0500 Respiratory rate 16 /min Rod Paster [facility] 01-04-2024 18:40-0500 Heart rate 74 /min Rod Paster [facility] 01-04-2024 18:13-0500 Respiratory rate 18 /min Rod Paster [facility] 01-04-2024 15:57-0500 Heart rate 91 /min Rod Paster [facility] 12-10-2023 11:56-0500 Blood Pressure Location Nadir GARCÍA [facility] 12-10-2023 11:56-0500 Diastolic blood pressure 79 mm[Hg] Nadir GARCÍA [facility] 12-10-2023 11:56-0500 Heart rate 62 /min Nadir GARCÍA [facility] 12-10-2023 11:56-0500 Respiratory rate 16 /min Nadir GARCÍA [facility] 12-10-2023 11:56-0500 Systolic blood pressure 125 mm[Hg] Nadir GARCÍA [facility] 10-26-2023 10:55-0500 Diastolic blood pressure 81 mm[Hg] Ambrocio Sarmini [facility] 10-26-2023 10:55-0500 Heart rate 58 /min Ambrocio Sarmini [facility] 10-26-2023 10:55-0500 Respiratory rate 16 /min Ambrocio Sarmini [facility] 10-26-2023 10:55-0500 SaO2% (BldA) [Mass fraction] 94 % Ambrocio Sarmini [facility] 10-26-2023 10:55-0500 Systolic blood pressure 119 mm[Hg] Ambrocio Sarmini [facility] 10-26-2023 10:40-0500 Diastolic blood pressure 75 mm[Hg] Ambrocio Sarmini [facility] 10-26-2023 10:40-0500 Heart rate 58 /min Ambrocio Sarmini [facility] 10-26-2023 10:40-0500 Respiratory rate 16 /min Ambrocio Sarmini [facility] 10-26-2023 10:40-0500 SaO2% (BldA) [Mass fraction] 94 % Ambrocio Sarmini [facility] 10-26-2023 10:40-0500 Systolic blood pressure 108 mm[Hg] Ambrocio Sarmini [facility] 10-26-2023 10:35-0500 Diastolic blood pressure 74 mm[Hg] Ambrocio Sarmini [facility] 10-26-2023 10:35-0500 Heart rate 67 /min Ambrocio Sarmini [facility] 10-26-2023 10:35-0500 Respiratory rate 16 /min Ambrocio Sarmini [facility] 10-26-2023 10:35-0500 SaO2% (BldA) [Mass fraction] 94 % Ambrocio Sarmini [facility] 10-26-2023 10:35-0500 Systolic blood pressure 109 mm[Hg] Ambrocio Sarmini [facility] 10-26-2023 10:30-0500 Body temperature 97.16 [degF] Ambrocio Sarmini [facility] 10-26-2023 10:09-0500 Respiratory rate 12 /min Ambrocio Sarmini [facility] 10-26-2023 09:28-0500 Blood Pressure Location Cristóbal Lowe [facility] 10-26-2023 09:28-0500 Body temperature 98.06 [degF] Cristóbal Lowe [facility] 08-21-2023 14:05-0400 Body height 175.3 cm Delphine Garciaubairak AUTOMATION CONSULTANT-BUSINESS RISK ANALYST Work Phone: [facility] 08-21-2023 14:05-0400 Body mass index (BMI) [Ratio] 25.78 kg/m2 Delphine Garciaubachik AUTOMATION CONSULTANT-BUSINESS RISK ANALYST Work Phone: [facility] [employer] [facility] 08-21-2023 14:05-0400 Body temperature 98.29 [degF] Delphine Garciaubachik AUTOMATION CONSULTANT-BUSINESS RISK ANALYST Work Phone: [facility] [employer] [facility] 08-21-2023 14:05-0400 Body weight 79.2 kg Delphine Garciaubachik AUTOMATION CONSULTANT-BUSINESS RISK ANALYST Work Phone: [employer] [facility] 08-21-2023 14:05-0400 Diastolic blood pressure 76 mm[Hg] Delphine Garciaubachik AUTOMATION CONSULTANT-BUSINESS RISK ANALYST Work Phone: [facility] [employer] [facility] 08-21-2023 14:05-0400 Heart rate 76 /min Delphine Garciaubachik AUTOMATION CONSULTANT-BUSINESS RISK ANALYST Work Phone: [employer] [facility] 08-21-2023 14:05-0400 Respiratory rate 18 /min Delphine Trubachik AUTOMATION CONSULTANT-BUSINESS RISK ANALYST Work Phone: [employer] [facility] 08-21-2023 14:05-0400 SaO2% (BldA) [Mass fraction] 96 % Delphine Garciaubachik AUTOMATION CONSULTANT-BUSINESS RISK ANALYST Work Phone: [employer] [facility] 08-21-2023 14:05-0400 Systolic blood pressure 118 mm[Hg] Delphine Trubachik AUTOMATION CONSULTANT-BUSINESS RISK ANALYST Work Phone: [facility] 08-15-2022 08:43-0400 Body height 175.3 cm Earle Henderson MD Work Phone: [facility] 08-15-2022 08:43-0400 Body mass index (BMI) [Ratio] 27.31 kg/m2 Earle Henderson MD Work Phone: [facility] 08-15-2022 08:43-0400 Body weight 83.9 kg Earle Henderson MD Work Phone: [facility] 08-15-2022 08:43-0400 Respiratory rate 18 /min Earle Henderson MD Work Phone: [facility] 06-23-2022 07:55-0400 Body height 175.3 cm Earle Henderson MD Work Phone: [facility] 06-23-2022 07:55-0400 Body mass index (BMI) [Ratio] 27.32 kg/m2 Earle Henderson MD Work Phone: [facility] 06-23-2022 07:55-0400 Body weight 83.92 kg Earle Henderson MD Work Phone: [facility] 03-31-2022 13:16-0400 Body height 176.5 cm Delphine Berry AUTOMATION CONSULTANT-BUSINESS RISK ANALYST Work Phone: [facility] 03-31-2022 13:16-0400 Body mass index (BMI) [Ratio] 27.31 kg/m2 Delphine Berry AUTOMATION CONSULTANT-BUSINESS RISK ANALYST Work Phone: [facility] 03-31-2022 13:16-0400 Body temperature 98.1 [degF] Delphine Berry AUTOMATION CONSULTANT-BUSINESS RISK ANALYST Work Phone: [facility] 03-31-2022 13:16-0400 Body weight 85.09 kg Delphine Berry AUTOMATION CONSULTANT-BUSINESS RISK ANALYST Work Phone: [facility] 03-31-2022 13:16-0400 Diastolic blood pressure 72 mm[Hg] Delphine Trubachik AUTOMATION CONSULTANT-BUSINESS RISK ANALYST Work Phone: [facility] [employer] [facility] 03-31-2022 13:16-0400 Heart rate 82 /min Delphine Garciaubachik AUTOMATION CONSULTANT-BUSINESS RISK ANALYST Work Phone: [facility] 03-31-2022 13:16-0400 Respiratory rate 18 /min Delphine Garciaubachik AUTOMATION CONSULTANT-BUSINESS RISK ANALYST Work Phone: [facility] 03-31-2022 13:16-0400 SaO2% (BldA) [Mass fraction] 96 % Delphine Garciaubachik AUTOMATION CONSULTANT-BUSINESS RISK ANALYST Work Phone: [facility] 03-31-2022 13:16-0400 Systolic blood pressure 120 mm[Hg] Delphine Garciaubachik AUTOMATION CONSULTANT-BUSINESS RISK ANALYST Work Phone: [facility] 04-12-2021 07:10-0400 Body height 175.3 cm Delphine Garciaubairak AUTOMATION CONSULTANT-BUSINESS RISK ANALYST Work Phone: [facility] 04-12-2021 07:10-0400 Body mass index (BMI) [Ratio] 28 kg/m2 Delphine Garciaubachik AUTOMATION CONSULTANT-BUSINESS RISK ANALYST Work Phone: [facility] 04-12-2021 07:10-0400 Body temperature 97.81 [degF] Delphine Riverk AUTOMATION CONSULTANT-BUSINESS RISK ANALYST Work Phone: [facility] 04-12-2021 07:10-0400 Body weight 86 kg Delphine Garciaubachik AUTOMATION CONSULTANT-BUSINESS RISK ANALYST Work Phone: [facility] 04-12-2021 07:10-0400 Diastolic blood pressure 80 mm[Hg] Delphine Trubachik AUTOMATION CONSULTANT-BUSINESS RISK ANALYST Work Phone: [facility] 04-12-2021 07:10-0400 Heart rate 59 /min Delphine Garciaubachik AUTOMATION CONSULTANT-BUSINESS RISK ANALYST Work Phone: [facility] 04-12-2021 07:10-0400 Respiratory rate 18 /min Delphine Garciaubachik AUTOMATION CONSULTANT-BUSINESS RISK ANALYST Work Phone: [facility] 04-12-2021 07:10-0400 SaO2% (BldA) [Mass fraction] 97 % [facility] Kristi AUTOMATION CONSULTANT-BUSINESS RISK ANALYST Work Phone: [facility] 04-12-2021 07:10-0400 Systolic blood pressure 120 mm[Hg] [facility] Kristi AUTOMATION CONSULTANT-BUSINESS RISK ANALYST Work Phone: [facility] 2021 08:04-0500 BMI (Body Mass Index) 25.64 kg/m2 [facility] 2021 08:04-0500 Body Temperature 98.1 [degF] [facility] 2021 08:04-0500 Body weight 79.89 kg [facility] 2021 08:04-0500 BP Diastolic 72 mm[Hg] [facility] 2021 08:04-0500 BP Systolic 122 mm[Hg] [facility] 2021 08:04-0500 Height 176.5 cm [facility] 2021 08:04-0500 Pulse (Heart Rate) 56 /min [facility] 2021 08:04-0500 Pulse Oximetry 97 % [facility] 2021 08:04-0500 Respiratory Rate 18 /min [facility] 01-30-2020 11:03-0400 BMI (Body Mass Index) 25.82 kg/m2 [facility] 01-30-2020 11:03-0400 Body Temperature 98.2 [degF] [facility] 01-30-2020 11:03-0400 Body weight 80.47 kg [facility] 01-30-2020 11:03-0400 BP Diastolic 72 mm[Hg] [facility] 01-30-2020 11:03-0400 BP Systolic 116 mm[Hg] [facility] 01-30-2020 11:03-0400 Height 176.5 cm [facility] 01-30-2020 11:03-0400 Pulse (Heart Rate) 64 /min [facility] 01-30-2020 11:03-0400 Pulse Oximetry 98 % [facility] 01-30-2020 11:03-0400 Respiratory Rate 18 /min [facility] 01-23-2020 14:00-0500 BMI (Body Mass Index) 26.49 kg/m2 [facility] 01-23-2020 14:00-0500 Body Temperature 98.4 [degF] [facility] 01-23-2020 14:00-0500 Body weight 82.56 kg [facility] 01-23-2020 14:00-0500 BP Diastolic 74 mm[Hg] [facility] 01-23-2020 14:00-0500 BP Systolic 120 mm[Hg] [facility] 01-23-2020 14:00-0500 Height 176.5 cm [facility] 01-23-2020 14:00-0500 Pulse (Heart Rate) 73 /min [facility] 01-23-2020 14:00-0500 Pulse Oximetry 98 % [facility] 01-23-2020 14:00-0500 Respiratory Rate 20 /min [facility] 12-26-2019 14:30-0500 BMI (Body Mass Index) 26.23 kg/m2 [facility] 12-26-2019 14:30-0500 Body Temperature 98.29 [degF] [facility] 12-26-2019 14:30-0500 Body weight 81.74 kg [facility] 12-26-2019 14:30-0500 BP Diastolic 66 mm[Hg] [facility] 12-26-2019 14:30-0500 BP Systolic 104 mm[Hg] [facility] 12-26-2019 14:30-0500 Height 176.5 cm [facility] 12-26-2019 14:30-0500 Pulse (Heart Rate) 71 /min [facility] 12-26-2019 14:30-0500 Pulse Oximetry 95 % [facility] 12-26-2019 14:30-0500 Respiratory Rate 20 /min [facility] 03-17-2019 14:05-0400 BMI (Body Mass Index) 25.68 kg/m2 [facility] 03-17-2019 14:05-0400 Body Temperature 98.8 [degF] [facility] 03-17-2019 14:05-0400 BP Diastolic 64 mm[Hg] [facility] 03-17-2019 14:05-0400 BP Systolic 106 mm[Hg] [facility] 03-17-2019 14:05-0400 Height 177.8 cm [facility] 03-17-2019 14:05-0400 Pulse (Heart Rate) 66 /min [facility] 03-17-2019 14:05-0400 Pulse Oximetry 98 % [facility] 03-17-2019 14:05-0400 Respiratory Rate 20 /min [facility] 03-17-2019 14:05-0400 Weight 81.19 kg [facility] 01-03-2019 15:04-0500 BMI (Body Mass Index) 24.25 kg/m2 [facility] 01-03-2019 15:04-0500 Body Temperature 97.81 [degF] [facility] 01-03-2019 15:04-0500 BP Diastolic 76 mm[Hg] [facility] 01-03-2019 15:04-0500 BP Systolic 120 mm[Hg] [facility] 01-03-2019 15:04-0500 Height 177.8 cm [facility] 02-15-2019 15:04-0500 Pulse (Heart Rate) 56 /min [facility] 01-03-2019 15:04-0500 Pulse Oximetry 98 % [facility] 01-03-2019 15:04-0500 Respiratory Rate 16 /min [facility] 01-03-2019 15:04-0500 Weight 76.66 kg [facility] Encounters Encounter Date Encounter Type Care Provider Facility Start: 04-30-2024 End: 04-30-2024 ambulatory PATRICK KLEIN Facility[facility] Start: 04-30-2024 End: 04-30-2024 Patient encounter procedure PATRICK KLEIN [facility] Start: 03-17-2024 End: 03-17-2024 ambulatory Nadir GARCÍA Facility:[facility] Start: 03-17-2024 End: 03-17-2024 Patient encounter procedure Nadir GARCÍA [facility] Start: 03-12-2024 ambulatory [facility] Start: 03-12-2024 End: 03-12-2024 Office outpatient visit 25 minutes Delphine Berry AUTOMATION CONSULTANT-BUSINESS RISK ANALYST Work Phone: [facility] Comment on above: Acute on chronic pro statitis (Primary Dx) Start: 03-10-2024 End: 03-10-2024 ambulatory [facility] Work Phone: Start: 03-10-2024 End: 03-10-2024 Patient encounter procedure [facility] Work Phone: Start: 02-11-2024 ambulatory [facility] Start: 02-11-2024 End: 02-11-2024 Office outpatient visit 40 minutes Delphine Zimmermansaint elizabeth hebronhansa AUTOMATION CONSULTANT-BUSINESS RISK ANALYST Work Phone: [facility] Comment on above: History of UTI (Prim gloria Dx); Acute on chronic prostatitis; Sepsis without acute organ dysfunction, due to unspecified organism; Chest pain, unspecified type; Chest tightness; Shortness of breath; Other eczema Start: 01-25-2024 End: 01-29-2024 Evaluation and management of inpatient Rod Brown Facility:[facility] Start: 01-25-2024 End: 01-29-2024 Evaluation and management of inpatient Louisa Soriano [facility] Start: 01-18-2024 End: 01-18-2024 ambulatory Nadir GARCÍA Facility:[facility] Start: 01-18-2024 End: 01-18-2024 Patient encounter procedure Nadir GARCÍA [facility] Start: 01-10-2024 End: 01-10-2024 Emergency department patient visit Amauri Tran [facility] Start: 01-04-2024 End: 01-07-2024 Evaluation and management of inpatient Marvel Patel Facility:[facility] Start: 01-04-2024 End: 01-07-2024 Evaluation and management of inpatient Rod Brown [facility] Start: 01-01-2024 End: 01-01-2024 ambulatory Nadir GARCÍA Facility:[facility] Start: 01-01-2024 End: 01-01-2024 Patient encounter procedure Nadir GARCÍA [facility] Start: 12-10-2023 End: 12-10-2023 ambulatory DELPHINE GARCIADARRENOLYA Facility:[facility] Start: 12-10-2023 End: 12-10-2023 Patient encounter procedure Nadir GARCÍA [facility] Start: 10-26-2023 End: 10-26-2023 ambulatory DELPHINE RIVERK Facility:[facility] Start: 10-26-2023 End: 10-26-2023 Patient encounter procedure Cristóbal Lowe [facility] Start: 10-01-2023 ambulatory DELPHINE TRUBACHIK Facilit y:[facility] [place] Start: 08-29-2023 ambulatory DELPHINE TRDARRENCHIK Facilit y:[facility] [place] Start: 08-28-2023 End: 08-28-2023 ambulatory Jennifer Guan Facility:[facility] Start: 08-23-2023 ambulatory DELPHINE TRFARZADK Facilit y:[facility] Start: 08-21-2023 ambulatory SELF SELF Avita Renee [facility] Start: 08-21-2023 End: 08-21-2023 Patient encounter status Delphine Berry AUTOMATION CONSULTANT-BUSINESS RISK ANALYST Work Phone: [facility] Work Phone: Start: 08-21-2023 End: 08-21-2023 Periodic preventive med est patient 40-64yrs Delphine Berry AUTOMATION CONSULTANT-BUSINESS RISK ANALYST Work Phone: [facility] Comment on above: Routine general medi quynh examination at a health care facility (Primary Dx); Elevated PSA; Urinary frequency; Encounter for screening colonoscopy Start: 08-21-2023 End: 08-21-2023 ambulatory DELPHINE RIVERK Facility:[facility] Start: 08-10-2023 End: 08-10-2023 ambulatory DELPHINE RIVERK Facility:[facility] Start: 08-10-2023 End: 08-10-2023 Patient encounter procedure DELPHINE BERRY [facility] Start: 08-15-2022 ambulatory SELF SELF Avita [facility] Start: 08-15-2022 End: 08-15-2022 Office outpatient visit 25 minutes Earle Henderson MD Work Phone: [facility] Comment on above: Primary osteoarthrit is of right knee (Primary Dx); Subchondral insufficiency fracture of condyle of right femur, initial encounter; Osteochondral defect of femoral condyle Start: 07-14-2022 End: 07-14-2022 Patient encounter procedure EARLE HENDERSON [facility] Start: 06-23-2022 [facility] Start: 06-23-2022 End: 06-23-2022 Subsequent hospital visit by physician Earle Henderson MD Work Phone: [facility] Comment on above: Arrived Start: 06-23-2022 End: 06-23-2022 Office outpatient new 30 minutes Earle Henderson MD Work Phone: [facility] Comment on above: Right knee pain, uns pecified chronicity (Primary Dx); Acute medial meniscus tear, right, initial encounter Start: 03-31-2022 End: 03-31-2022 Patient encounter status Delphine Berry AUTOMATION CONSULTANT-BUSINESS RISK ANALYST Work Phone: [facility] Start: 03-31-2022 End: 03-31-2022 Periodic preventive med est patient 40-64yrs Delphine Berry AUTOMATION CONSULTANT-BUSINESS RISK ANALYST Work Phone: [facility] Comment on above: Routine general medi quynh examination at a health care facility (Primary Dx); Elevated PSA Start: 03-17-2022 End: 03-17-2022 Patient encounter procedure DELPHINE BERRY [facility] Start: 04-12-2021 End: 04-12-2021 Office outpatient visit 25 minutes Delphine Berry AUTOMATION CONSULTANT-BUSINESS RISK ANALYST Work Phone: [facility] Comment on above: Environmental and se asonal allergies (Primary Dx) Start: 2021 End: 2021 Periodic preventive med est patient 40-64yrs Delphine Beryr Work Phone: [employer] [facility] Comment on above: Routine general medi quynh examination at a health care facility (Primary Dx); Dizziness Start: 01-30-2020 End: 01-30-2020 Office outpatient visit 15 minutes Delphine Morton [employer] Work Phone: [employer] [facility] Comment on above: Right calf pain (Marva feliciano Dx); Localized swelling of right lower leg Start: 01-23-2020 End: 01-23-2020 Office outpatient visit 25 minutes Delphine Morton [facility] Work Phone: [employer] [facility] Comment on above: Right calf pain (Marva feliciano Dx); Localized swelling of right lower leg Start: 12-26-2019 End: 12-26-2019 Periodic preventive med est patient 40-64yrs Delphine Morton [facility] Work Phone: [employer] [facility] Comment on above: Routine general medi quynh examination at a health care facility (Primary Dx); Screening for colon cancer Start: 07-15-2019 End: 07-15-2019 Refill Delphine Morton [facility] Work Phone: [employer] [facility] Start: 05-15-2019 End: 05-15-2019 Patient encounter procedure Other Other [facility] Start: 05-06-2019 End: 05-06-2019 Patient encounter procedure Marj Demarcus [facility] Start: 05-02-2019 End: 05-02-2019 Patient encounter procedure Historical Provider [facility] Start: 05-01-2019 End: 05-01-2019 Patient encounter procedure Other Other [facility] Start: 04-22-2019 End: 04-22-2019 Patient encounter procedure Historical Provider [employer] [facility] Start: 04-08-2019 End: 04-08-2019 Patient encounter procedure Other Other [facility] Start: 03-21-2019 End: 03-21-2019 Telephone encounter Marj Demarcus [facility] Comment on above: Other Start: 03-20-2019 End: 03-20-2019 Telephone encounter Delphine Morton [employer] Work Phone: [employer] [place] Comment on above: Results Start: 03-17-2019 End: 03-17-2019 Letter encounter Karla Mi [facility] Start: 03-17-2019 End: 03-17-2019 Patient encounter procedure Marj Tracy [facility] Start: 03-17-2019 End: 03-17-2019 Telephone encounter Karla Mi [facility] Comment on above: Other Start: 03-17-2019 End: 03-17-2019 Office outpatient visit 25 minutes Delphine Morton [facility] Work Phone: [facility] Comment on above: Acute pain of left k nee (Primary Dx) Start: 03-07-2019 End: 03-07-2019 Telephone encounter Delphine Morton [facility] Work Phone: [facility] Comment on above: Results Start: 02-01-2019 End: 02-01-2019 Patient encounter procedure Other Other [facility] Start: 01-30-2019 End: 01-30-2019 Patient encounter procedure Marj Tracy [facility] Start: 01-14-2019 End: 01-14-2019 Telephone encounter Delphine Morton [facility] Work Phone: [facility] Comment on above: Other Start: 01-06-2019 End: 01-06-2019 Patient encounter procedure Other Other [facility] Start: 01-03-2019 End: 01-03-2019 Periodic preventive med est patient 40-64yrs Delphine Morton [facility] Work Phone: [facility] Comment on above: Thrombocytopenia (Pr imary Dx); Routine general medical examination at a health care facility; Liver enzyme elevation; Erectile dysfunction, unspecified erectile dysfunction type; Colon cancer screening Start: 12-19-2018 End: 12-19-2018 Telephone encounter Harriet oJse [facility] Comment on above: Labs Only Start: 10-30-2018 End: 10-30-2018 Patient encounter procedure Marj Tracy [facility] Start: 10-01-2018 End: 10-01-2018 Patient encounter procedure Marj Tracy [facility] Procedures Date Procedure Procedure Detail Performing Clinician Start: 02-11-2024 Urnls dip stick/tabl et rgnt auto w/o microscopy Delphine A Trubachik AUTOMATION CONSULTANT-BUSINESS RISK ANALYST Work Phone: Start: 01-01-2024 Transrectal biopsy o f prostate using ultrasound guidance Nadir GARCÍA Start: 10-26-2023 Colonoscopy Cristóbal malone Start: 06-23-2022 Radiologic exam knee complete 4/more views Earle Henderson MD Work Phone: Start: 03-17-2022 Lipid 1996 panel - S brianna or Plasma Delphine Trubachik AUTOMATION CONSULTANT-BUSINESS RISK ANALYST Work Phone: Start: 12-26-2019 Blood occult peroxid ase actv qual feces 1 deter Delphine iZmmermanchihansa Work Phone: Start: 05-07-2019 Arthroscopy of knee [facility] Comment on above: Left knee Start: 05-02-2019 LABS (OUTSIDE) Historic al Provider Start: 05-02-2019 OUTSIDE RADIOLOGY Histo rical Provider Start: 04-22-2019 OUTSIDE RADIOLOGY Histo rical Provider Start: 03-20-2019 OUTSIDE RADIOLOGY Delphine Zimmermanchihansa Work Phone: Start: 03-07-2019 LABS (OUTSIDE) Delphine oMrton Trdarrenchik Work Phone: Start: 01-03-2019 POCT OCCULT BLOOD STOOL Delphine Berry Work Phone: Start: 12-15-2016 Lipid 1996 panel - S brianna or Plasma Marj Demarcus ANKLE FRACTURE 2 DELPHINE TRUBA CHIK Comment on above: LEFT ANKLE ORIF Plan of Treatment Date Care Activity Detail Author Start: 01-03-2029 Tetanus vaccination TETANUS [facility] Start: 03-17-2027 Fasting lipid profile LIPID SCREENIN G [facility] Start: 03-17-2027 Lipid panel LIPID SCREENING [facility] Start: 12-29-2024 ambulatory Ambulatory Facility:[facility] Start: 10-29-2024 Screening for malign ant neoplasm of colon COLORECTAL CANCER SCREENING DISCUSSION [facility] Start: 08-09-2024 Prostate specific antigen measurement PROSTATE CANCER SCREENING DISCUSSION [facility] Start: 03-31-2023 Prostate specific antigen measurement PROSTATE CANCER SCREENING DISCUSSION [facility] Start: 08-01-2022 COVID-19 VACCINE (3 - Booster for Fam series) COVID-19 VACCINE (3 - Booster for Fam series) [facility] Start: 07-20-2022 Influenza vaccination A [facility] Start: 2022 Prostate specific antigen measurement PROSTATE CANCER SCREENING DISCUSSION [facility] Start: 12-15-2021 Fasting lipid profile LIPID SCREENIN G [facility] Work Phone: Start: 12-26-2020 Colonoscopy COLORECTAL CAN CER SCREENING DISCUSSION [facility] Start: 12-26-2020 Screening for malign ant neoplasm of colon COLORECTAL CANCER SCREENING DISCUSSION [facility] Start: 11-14-2020 Prostate specific antigen measurement PROSTATE CANCER SCREENING DISCUSSION [facility] Start: 02-06-2020 End: 02-06-2020 Office Visit 02/06/2020 Office Visit Family Medicine Delphine Berry, AUTOMATION CONSULTANT-BUSINESS RISK ANALYST [address] [place] [address] [facility] Start: 01-30-2020 End: 01-30-2020 Office Visit 01/30/2020 Office Visit Family Medicine Delphine Berry, AUTOMATION CONSULTANT-BUSINESS RISK ANALYST [address] [place] [address] [facility] Start: 01-23-2020 End: 01-22-2021 MRI of knee MRI KNEE RIGHT WITHOUT CONTRAST Imaging Routine Right calf pain Localized swelling of right lower leg Expected: 01/23/2020, Expires: 01/22/2021 [facility] Comment on above: Expected: 01/23/2020 , Expires: 01/22/2021 Start: 01-23-2020 End: 01-22-2021 US DUPLEX EXTREMITY DVT RIGHT US DUPLEX EXTREMITY DVT RIGHT Imaging Routine Right calf pain Localized swelling of right lower leg Expected: 01/23/2020, Expires: 01/22/2021 [facility] Comment on above: Expected: 01/23/2020 , Expires: 01/22/2021 Start: 01-03-2020 Colonoscopy COLON CANCER S CREENING DISCUSSION [facility] Start: 01-03-2020 Protein mass conc COLON CANCER SCREENING DISCUSSION [facility] Start: 07-20-2019 Influenza vaccination INFLUENZA VACC INE (#1) [facility] Start: 03-31-2019 End: 03-31-2019 Office Visit 03/31/2019 Office Visit Orthopaedics Rene Barboza, DO [address] [place] [address] [facility] Start: 03-17-2019 End: 03-17-2020 Radiologic examination of knee XR KNEE LEFT 4+ VIEWS Imaging Routine Acute pain of left knee Expected: 03/17/2019, Expires: 03/17/2020 [facility] Comment on above: Expected: 03/17/2019 , Expires: 03/17/2020 Start: 02-28-2019 Zoster vaccine hzv l nataly for subcutaneous use ZOSTER (SHINGLES) VACCINE (2 of 2) [facility] Start: 01-03-2019 End: 01-03-2019 Ambulatory 01/03/2019 Office Visit Family Medicine Delphine Berry, AUTOMATION CONSULTANT-BUSINESS RISK ANALYST [address] [place] [address] [facility] Start: 07-20-2018 Influenza vaccination INFLUENZA VACC INE (#1) [facility] Work Phone: Start: 2017 Prostate specific antigen measurement PROSTATE CANCER SCREENING DISCUSSION [facility] Work Phone: Start: 2017 Protein mass conc COLON CANCER SCREENING DISCUSSION [facility] Work Phone: Start: 1986 Third diphtheria, tetanus and acellular pertussis (DTaP) vaccination TDAP (ADULT) [facility] Work Phone: Start: 1985 Tetanus vaccination TETANUS [facility] Work Phone: Start: 01-22-1980 HIV screening HIV SCREENING DISCUSSI ON [facility] Work Phone: Start: 1967 Hepatitis B vaccination HEP B VACCINE (1 of 3 - 3-dose series) [employer] CBC, EDIF, PLATELET [facility] Work Phone: Comment on above: Ordered: 12/19/2018 Ordered: 01/03/2019 Cobalamin (Vitamin B 12) mass conc VITAMIN B12 Lab Routine Thrombocytopenia Ordered: 01/03/2019 [facility] Comment on above: Ordered: 01/03/2019 Comprehensive metabo lic 2000 panel COMPREHENSIVE METABOLIC PANEL Routine Routine general medical examination at a health care facility Ordered: 12/19/2018 [facility] Work Phone: Comment on above: Ordered: 12/19/2018 Ecg routine ecg w/le ast 12 lds w/i&r SC ELECTROCARDIOGRAM, COMPLETE SC - OFFICE PERFORMED Routine Chest pain, unspecified type Chest tightness Shortness of breath Ordered: 02/11/2024 [employer] Comment on above: Ordered: 02/11/2024 FREE TESTOSTERONE FREE TESTOSTER ONE Routine Routine general medical examination at a health care facility Ordered: 12/19/2018 [facility] Work Phone: Comment on above: Ordered: 12/19/2018 Gamma glutamyl transferase enzyme act/vol GGT Lab Routine Liver enzyme elevation Ordered: 01/03/2019 [facility] Comment on above: Ordered: 01/03/2019 HEPATIC FUNCTION PANEL HEPATIC F UNCTION PANEL Lab Routine Liver enzyme elevation Ordered: 01/03/2019 [facility] [employer] Comment on above: Ordered: 01/03/2019 HEPATITIS A, B, C HEPATITIS A, B , C Lab Routine Liver enzyme elevation Ordered: 01/03/2019 [facility] Comment on above: Ordered: 01/03/2019 LIPID PANEL W CALCULATED LDL LIPID PANEL W CALCULATED LDL Routine Routine general medical examination at a health care facility Ordered: 12/19/2018 [facility] Work Phone: Comment on above: Ordered: 12/19/2018 MR Knee - right WO contrast MRI KNEE RIGHT WITHOUT CONTRAST Imaging Routine Right knee pain, unspecified chronicity Acute medial meniscus tear, right, initial encounter Ordered: 06/28/2022 [facility] Comment on above: Ordered: 06/28/2022 PSA - DIAGNOSTIC/RYDER OR MARKER PSA - DIAGNOSTIC/TUMOR MARKER Lab Routine Elevated PSA Ordered: 03/31/2022 [facility] Comment on above: Ordered: 03/31/2022 Testosterone mass conc TESTOSTER ONE Routine Routine general medical examination at a health care facility Ordered: 12/19/2018 [facility] Work Phone: Comment on above: Ordered: 12/19/2018 TSH W/FT4 REFLEX TSH W/FT4 REFLE X Routine Routine general medical examination at a health care facility Ordered: 12/19/2018 [facility] Work Phone: Comment on above: Ordered: 12/19/2018 XR Knee - right 4 Views XR KNEE RIGHT 4+ VIEWS Imaging Routine Right knee pain, unspecified chronicity 06/23/2022 8:12 AM EDT [facility] Work Phone: [facility] Immunizations Immunization Date Immunization Notes Care Provider Fa cility 12-14-2022 zoster vaccine recombinant Ambrocio Sarmini [facility] 09-10-2022 influenza virus vaccine, unspecified formulation Ambrocio Sarmini [facility] 09-10-2022 zoster vaccine recombinant Ambrocio Sarmini [facility] 11-18-2021 SARS-CoV-2 (COVID-19 ) mRNA BNT-162b2 vax Ambrocio Sarmini [facility] 09-03-2021 influenza virus vaccine, unspecified formulation Ambrocio Sarmini [facility] 03-02-2021 SARS-CoV-2 (COVID-19 ) mRNA BNT-162b2 vax [facility] [facility] Comment on above: Result Comment: 2022: TPV50 02-09-2021 SARS-CoV-2 (COVID-19 ) mRNA BNT-162b2 vax Ambrocio Marymini [facility] Comment on above: Result Comment: 2022: TPV50 2021 influenza virus vaccine, unspecified formulation Delphine [employer] [facility] AUTOMATION CONSULTANT-BUSINESS RISK ANALYST Work Phone: [employer] 01-03-2019 influenza virus vaccine, unspecified formulation Delphine Self-A-r-T 01-03-2019 zoster vaccine, unspecified formulation [facility] [place] NEGATED: Highlighted row has not occurred!08-27-2023 influenza virus vaccine, unspecified formulation Ambrocio Marymini [facility] Payers Date Payer Category Payer Unknown ANTHEM ANTHEM HM O PPO POS xxxxxxxxxxxx 2017-Present [id number] 2017 Unknown ANTHEM ANTHEM HM O PPO POS [id number] 2017-Present [id number] [id number] 2017 Unknown ANTHEM ANTHEM HM O PPO POS [id number] 2017-Present [address] [place] [address] [id number] .[id number] 2017 Unknown [id number] 1967 Unknown [id number] 2.16.840.1.289220.3.579.2.983 1967 Unknown [id number] 2.16.840.1.014383.3.579.2.983 1967 Unknown [id number] 2.16.840.1.278287.3.579.2.983 1967 Unknown [id number] 2.16.840.1.189341.3.579.2. 1967 Unknown [id number] 2.16.840.1.150421.3.579.2 1967 Unknown [id number] 2.16.840.1.119999.3.579.2.98 1967 Unknown [id number] 2.16.840.1.324790.3.579.2.98 1967 Unknown [id number] 2.16.840.1.174954.3.579.2 1967 Unknown [id number] 2.16.840.1.800836.3.579.2 1967 Unknown [id number] 2.840.1.242949.3.579.2 1967 Unknown [id number] 2.16840.1.761070.3.579. 1967 Unknown [id number] 2.16.840.1.310859.3.579. 1967 Unknown [id number] 2.16.840.1.342530.3.579.2 1967 Unknown [id number] 2.16.840.1.183793.3.579.2 1967 Unknown [id number] 2.16.840.1.537548.3.579.2 1967 Unknown [id number] 2.16.840.1.073201.3.579.2 1967 Unknown [id number] 2.16.840.1.006287.3.579.2 1967 Unknown [id number] 2.16.840.1.708043.3.579.2727 1967 Unknown [id number] 2.16.840.1.172697.3.579.2727 1967 Unknown [id number] 2.16.840.1.015848.3.579.2727 1967 Unknown [id number] 2.16.840.1.106085.3.579.272 1967 Unknown [id number] 2.16.840.1.017571.3.579.272 Unknown [place] BC/BS [id number] Social History Date Type Detail Facility Start: 12-21-2017 End: 03-17-2024 Tobacco smoking status NHIS Never smoker [facility] Work Phone: Start: 1965 Sex Assigned At Not on file O [facility] Work Phone: Start: 03-17-2019 Alcohol Comment occasionally [employer] Start: 03-17-2019 End: 03-12-2024 Alcohol intake Yes [facility] [employer] Start: 12-26-2019 End: 03-12-2024 Alcohol intake Current drinker of alcohol (finding) [facility] Start: 12-21-2017 End: 2021 Tobacco use and exposure Never used [facility] Start: 03-17-2019 Alcohol Comment occasionally [facility] Tobacco smoking status No Smoking Status Entered [facility] Tobacco smoking status No Smoking Status Entered [facility] Start: 08-21-2023 End: 03-12-2024 History of Social function [facility] Start: 12-07-2017 Gender identity Identifies as male gender (finding) [facility] Tobacco smoking status Never [facility] Start: 1965 Sex Assigned At Male F [facility] Functional Status Date Assessment Result Facility 03-17-2024 Functional Status N/A [facility] 01-25-2024 Functional Status N/A [facility] 01-18-2024 Functional Status N/A [facility] 01-10-2024 Functional Status N/A [facility] 01-04-2024 Functional Status N/A [facility] 01-04-2024 Functional Status [facility] 01-01-2024 Functional Status N/A [facility] 12-10-2023 Functional Status N/A [facility] 10-26-2023 Functional Status N/A [facility] Clinical Notes 04-12-2021 to 03-17-2024 BRY Andrade [...] treatment? Where to find more information The [employer]: www.cancer.org Stateless Urological Association: www.auanet.org Contact a health care [...] provider. Document Revised: 05/01/2022 Document Reviewed: 05/01/2022 [employer] Patient Education 2022 [employer]. Follow Up Care 01/30/2024 12:56:12 With:RICKY LEVIN, Nadir Mercado, URL Address: [facility] [address] [place] [address] [id number] When: Unknown Comments:10 mos w/ PSA [facility] 03-12-2024 History of Present illness Narrative Subjective History of Present Illness Patient had a prostate bx done 01/01/[address] García. Following this, he developed prostatitis. Presented to [facility] in [place] on 01/04/2024 with high fever and pressure with urination and did end up having burning with urination. Blood and urine cultures ran and negative. Started on IV antibiotics for a few days then discharged on 01/07/2024 with oral ATB's. Was seen 01/18/[address] García for clearance for travel and was cleared. Went to [facility] from to the 7th. Had to return [...] reason for visit today is to have [facility] paperwork updated. Was seen here on [...] Sooner if needed. documented in this encounter [facility] 02-11-2024 History of Present illness Narrative Subjective History of Present Illness Patient had a prostate bx done 01/01/[address] García. Following this, he developed prostatitis. Presented to [facility] in [place] on 01/04/2024 with high fever and pressure with urination and did end up having burning with urination. Blood and urine cultures ran and negative. Started on IV antibiotics for a few days then discharged on 01/07/2024 with oral ATB's. Was seen 01/18/[address] García for clearance for travel and was cleared. Went to [facility] from to the . Had to return [...] X 6 weeks. He is scheduled through [facility] after 6 weeks of ATB. Patient's current s/sx include does get shortness of breath and chest tightness with stairs and quicker exertion. Chest tightness will sometimes happen just while sitting. Aggravating factors exertion but sometimes without exertion, unsure if anxious when this happens. Relieving factors none. Associated s/sx none. Patient's reason for visit today is to have [facility] paperwork filled out that his urologist [...] testing or procedures.) documented in this encounter [facility] 02-05-2024 Note [id number]#1.00TIFF [facility] 02-05-2024 Note [id number]#1.00TIFF [facility] 02-03-2024 Note Microbiology PROCEDURE: Blood Culture Charcoal [R1] SOURCE: Blood BODY SITE: Arm R COLLECTED DATE/TIME: 01/25/2024 14:51 EST RECEIVED DATE/TIME: 01/25/2024 15:50 EST START DATE/TIME: 01/25/2024 15:50 EST FREE TEXT SOURCE: IV start Ines HONG, Jaden Chacon PA-C, Jaden FINAL REPORTS Final Report [] Verified Date/Time: 02/01/2024 18:00 EDT No growth at 7 days. Performing Locations R1: This test was performed at: [facility], [address] [place] [address], [facility] , , [facility] Comment on above: Performed By: #### 1 [id number], [id number], [id number], [id number], [id number], [id number], [id number] #### [facility] [address] [place] [id number] 01-29-2024 Evaluation + Plan note Extrac melly [...] Oral, Daily With When Contact Information DELPHINE EBRRY NP Within 5 to [address] [place] [phone]- Business (1) Additional Instructions: Call for followup appointment RICKY LEVIN, GERONIMO Jacobs Within 2 weeks [facility] [address], [place] [address]- Additional Instructions: Call for followup appointment PICC Home Care Guide Prostatitis, Nzzr-ql-Lnmz Addendum by Juan David Brown DO, am [...] 0 Hospital Discharge Day > 30 Min 47665 PSA Total PSA Total PSA Total PSA Total PSA Total PSA Total Sbsq Hospital Care/Day Moderate 35 Minutes 18138 Sepsis (A41.9: Sepsis, unspecified organism) 2/2 above [...] Date:08/01/2024 11:00:00 AM Scheduled Provider:Nadir GARCÍA MD Location:[facility] Appointment Type:URO Office Visit Future Scheduled Tests Laboratory* PSA Total 02/05/24 * PSA Total 02/12/24 * PSA Total 02/19/24 * PSA Total 02/26/24 * PSA Total 03/04/24 * PSA Total 03/11/24 [facility]-12-2024 NoteAdmission and Discharge Information Admit Date/Time:01/25/2024 18:43 [...] BERRY NP Within 5 to [address] [place] [phone]- Business (1) Additional Instructions: Call for followup appointment RICKY LEVIN, GERONIMO Jacobs Within 2 weeks [facility] [address], [place] [address]- Additional Instructions: Call for followup appointment Patient Education PICC Home Care Guide Prostatitis, Gkwp-cy-Dzmd Patient will follow-up with Dr. Rodney as outpatient as well.[facility]:Result Comment: Electronically Signed By: Rod Brown DO\.br\Date and Time Signed: 01/29/24 13:36 [id number] Hospital Discharge instructions Patient Education 01/28/2024 11:11:18 [...] and water are not available, use hand warp hanger. ?Change your dressing only if taught to [...] provider. Document Revised: 05/24/2022 Document Reviewed: 05/24/2022 [employer] Patient Education 2022 [employer]Church. 01/28/2024 11:10:28 Prostatitis, Fgfd-jz-Woph Prostatitis Prostatitis is swelling of the prostate [...] Follow these instructions at home: Medicines Take qwkj-cyt-nikpusm and prescription medicines only as told by [...] important. Where to find more information National Hometown of Diabetes and Digestive and Kidney Diseases: [...] on the type that you have. Take umzl-yua-ivejuvp and prescription medicines only as told by [...] provider. Document Revised: 12/10/2020 Document Reviewed: 12/10/2020 [employer] Patient Education 2022 [employer]Church. Follow Up Care 01/25/2024 13:36:40 With:Ronel Clemente, Nikita Daigle, [facility] Address: [address] [place] [address] [place] [address]- When:2 weeks Comments:Call for followup appointment With:Nikita Rodney Address: [facility] [place] [address]- Business (1) When:2 to 4 weeks With:KRISTI MENA DELPHINE Address: [address] [place] [address], [place] [address] Business (1) When:5 to 7 days Comments:Call for followup appointment With:RICKY LEVIN, Nadir Mercado, URL Address: [facility] [address], [place] [address]- When:2 weeks Comments:Call for followup appointment [facility]03-11-2024 NoteMicrobiology PROCEDURE: Blood Culture Charcoal [R1] SOURCE: [...] Locations R1: This test was performed at: [facility], [address] [place] [address], [id number] , , [facility]Comment on above:Performed By: #### [id number] #### [facility] [address] [place] [address] [id number] NoteBasic Information Admit Date/Time:01/25/2024 18:46 Chief Complaint [...] Lymph Auto: 5 % Low (01/25/24 14:51:00) [place] Auto: 6.8 % (01/25/24 14:51:00) Eos Auto: 0.2 % (01/25/24 14:51:00) Basophil Auto: 0.1 % (01/25/24 14:51:00) Neutro Absolute: 13.8 E9/L High (01/25/24 14:51:00) Lymph Absolute: 0.8 E9/L Low (01/25/24 14:51:00) [place] Absolute: 1.1 E9/L High (01/25/24 14:51:00) Eos [...] Medical Conditions -med rec (more content not included)...[facility] on above:Result Comment: Electronically Signed By: Christie LEVIN, Louisa\.br\Date and Time Signed: 01/25/24 19:22 [id number] Hospital Discharge instructions Patient Education 01/18/2024 11:33:02 [...] Follow these instructions at home: Medicines Take glpp-uen-vytndxt and prescription medicines only as told by [...] important. Where to find more information National Hometown of Diabetes and Digestive and Kidney Diseases: [...] depends on the type of prostatitis. Take dnxi-nlt-pjrqrgv and prescription medicines only as told by [...] provider. Document Revised: 12/10/2020 Document Reviewed: 12/10/2020 [employer] Patient Education 2022 MyChurch. Follow Up Care 12/10/2023 12:59:15 With:Nadir GARCÍA MD, URL Address: [address] [place] [address]- When: Unknown [facility] [place] 02-23-2024 NoteMicrobiology PROCEDURE: Blood Culture Charcoal [R1] SOURCE: Blood BODY SITE: Arm R COLLECTED DATE/TIME: 01/04/2024 16:20 EST RECEIVED DATE/TIME: 01/04/2024 16:44 EST START DATE/TIME: 01/04/2024 16:44 EST FREE TEXT SOURCE: Daniel Espinoza PA-C. Daniel Espinoza PA-C. FINAL REPORTS Final Report [] Verified Date/Time: 01/11/2024 18:00 EST No growth at 7 days. Performing Locations R1: This test was performed at: [facility], [address] [place] [address], [id number] [place] [address], [address] Williams StreetComment on above:Performed By: #### [id number], [id number], [id number], [id number], [id number] #### [facility] [address] [place] [address] [id number] NoteMicrobiology PROCEDURE: Blood Culture Charcoal [R1] SOURCE: Blood BODY SITE: Arm L COLLECTED DATE/TIME: 01/04/2024 16:28 EST RECEIVED DATE/TIME: 01/04/2024 16:44 EST START DATE/TIME: 01/04/2024 16:44 EST FREE TEXT SOURCE: Daniel Espinoza PA-C. Daniel Espinoza PA-C. FINAL REPORTS Final Report [] Verified Date/Time: 01/11/2024 18:00 EST No growth at 7 days. Performing Locations R1: This test was performed at: [facility], [address] [place] [address], [id number] [place] [address], [address] [place], [place] [address]Comment on above:Performed By: #### [id number], [id number], [id number], [id number], [id number], [id number], [id number], [id number] #### [facility] [address] [place], [place] [id number] Evaluation + Plan noteExtracted from: Title:ED Note Author:Amauri Tran DO Date: Superficial thrombophlebitis (I80.9: Phlebitis and thrombophlebitis of unspecified site) Orders: cephalexin, 500 mg = 1 cap(s), Oral, QID, X 7 day(s), # 28 cap(s), Refills(s) 0, Pharmacy: [facility], 178, cm, 01/10/24 10:05:00 EST, Height/Length Dosing, 82.6, kg, 01/10/24 10:05:00 EST, Weight Dosing Future Appointments Appointment Date:01/18/2024 11:00:00 AM Scheduled Provider:Nadir GARCÍA MD Location:[facility] Appointment Type:URO Office Visit [facility]-22[facility]2024 Hospital Discharge instructions Patient Education 01/10/2024 11:07:24 [...] Follow these instructions at home: Medicines Take eloq-oif-ozbcsmg and prescription medicines only as told by [...] provider. Document Revised: 05/01/2022 Document Reviewed: 05/01/2022 [employer] Patient Education 2022 MyChurch. Follow Up Care 01/10/2024 09:55:08 With:DELPHINE BERRY [...] you develop any new or worsening symptoms. [facility]02-19-2024 Evaluation + Plan noteExtracted from: Title:Discharge Note [...] [facility] [address], [place] [address]- Business (1) Additional Instructions: DELPHINE BERRY In [...] Date:01/18/2024 11:00:00 AM Scheduled Provider:Nadir GARCÍA MD Location:[facility] Appointment Type:URO Office Visit [facility]2024 Hospital Discharge instructions Patient Education 01/07/2024 11:39:36 [...] Follow these instructions at home: Medicines Take rjpg-kbu-jfpudvi and prescription medicines only as told by [...] important. Where to find more information National Hometown of Diabetes and Digestive and Kidney Diseases: [...] depends on the type of prostatitis. Take yfiv-pjv-plrjzug and prescription medicines only as told by [...] provider. Document Revised: 12/10/2020 Document Reviewed: 12/10/2020 [employer] Patient Education 2022 [employer]Church. Follow Up Care 01/04/2024 15:26:00 With:aNdir GARCÍA Address: [facility] [address] [place] [address] [facility] (1) When: Unknown Comments:Call for followup appointment With:DELPHINE BERRY Address:Unknown When: Unknown Comments:Call for followup appointment [facility]-19-2024 NoteAdmission and Discharge Information Admit Date/Time:01/04/2024 17:09 [...] He does have an upcoming trip to [place] and was instructed not to consume alcohol [...] [facility] [address], [place] [address]- Business(1) Additional Instructions: DELPHINE BERRY In 0 days Additional Instructions:[facility] on above:Result Comment: Electronically Signed By: Christie LEVIN, Louisa\.br\Date and Time Signed: 01/07/24 10:53 [id number] NoteBasic Information Admit Date/Time:01/04/2024 17:09 Chief Complaint [...] Lymph Auto: 6.3 % Low (01/04/24 16:20:00) [place] Auto: 8.3 % (01/04/24 16:20:00) Eos Auto: 0 % (01/04/24 16:20:00) Basophil Auto: 0.1 % (01/04/24 16:20:00) Neutro Absolute: 12.5 E9/L High (01/04/24 16:20:00) Lymph Absolute: 0.9 E9/L Low (01/04/24 16:20:00) [place] Absolute: 1.2 E9/L High (01/04/24 16:20:00) Eos [...] B Ag: NEGATIVE1 ( (more content not included)...[facility]Comment on above:Result Comment: Electronically Signed By: Rod Brown DO\.br\Date and Time Signed: 01/04/24 19:25 [id number] Hospital Discharge instructions Patient Education 01/01/2024 10:41:56 [...] for your post-operative appointment in 1-2 weeks [phone] or [phone] Follow Up Care 12/11/2023 09:20:43 With:Nadir GARCÍA Address: [facility] [address] [place] [address]- [facility] (1) When: Unknown Comments:Keep scheduled appointment [facility]-22[facility]2024 Hospital Discharge instructions Patient Education 12/10/2023 12:46:16 [...] urethra. Follow these instructions at home: Take ngkb-hlm-coppvse and prescription medicines only as told by [...] provider. Document Revised: 05/24/2022 Document Reviewed: 05/24/2022 [employer] Patient Education 2022 MyChurch. Follow Up Care 09/06/2023 13:00:22 With:RICKY LEVIN, Nadir Mercado, URL Address: [facility] [address], [place] [address]- When: Unknown Comments:Sched TRUS/bx [facility] 01-22-2024 NoteChief Complaint Referral *Elevated PSA [...] Advised p that he will need a shuttle bus driver. SANCHEZ: 45gms, benign All questions/concerns were [...] pharmacy on file. Pt will need a shuttle bus driver to the procedure. Follow-up With When Contact Information RICKY LEVIN, Nadir Mercado, GERONIMO [facility] [address], [place] [address]- Additional Instructions: Sched TRUS/bx Patient Education Benign Prostatic Hyperplasia I, Manisah Betancourt , personally scribed for Dr. García on 12/10/2023 12:54:35. . Documentation recorded by (more content not included)...[facility] on above:Result Comment: Electronically Signed By: Nadir GARCÍA MD\.br\Date and Time Signed: 12/10/23 12:57 EST\.br\Electronically Co- Signed By: Manisha Betancourt\.br\Date and Time Co-Signed: 12/10/23 12:54 EST 10-29-2023 [id number] Hospital Discharge instructions Patient Education 10/26/2023 10:36:08 Colonoscopy, Care After Surgery Salam (CUSTOM) Colonoscopy Care After Surgery Please read the instructions outlined below and refer to this sheet in the next few weeks. These discharge instructions provide you with general information on caring for yourself [facility] Your doctor may also give you specific [...] unsweetened, w/added ascorbic acid 1 cup 0.5 [place] 1 cup 0.7 Vegetables Cooked Green beans 1 cup 4.0 Carrots 1/2 cup sliced 2.3 Peas 1 cup 8.8 Potato (baked, with skin) 1 medium potato 3.8 Raw [place] (with peel) 1 cucumber 1.5 Lettuce 1 [...] 8.7 Peanuts 1/2 cup 7.9 Chart from [employer] [facility] 2013. SEEK IMMEDIATE MEDICAL CARE IF: You [...] Nutrient Database for Standard Reference. Available at http://www.YouScan.usda.gov/fnic/foodcomp/search/. Information adapted from: [facility] Patient Information 2010 [employer]. [employer] 2013 http://www.Vicampo/contents/qkvxgydevzjn-uqxqmfd-fdoejk-the-basics 10/26/2023 10:36:08 Hemorrhoids Hemorrhoids Hemorrhoids are swollen [...] 3 times a day. General instructions Take qhvb-zso-yfbioly and prescription medicines only as told by [...] provider. Document Revised: 05/17/2022 Document Reviewed: 05/17/2022 [employer] Patient Education 2022 [employer] 10/26/2023 10:36:08 Colon Polyps Colon Polyps [...] hard liquor (44 mL). General instructions Take fazr-vev-xuffltf and prescription medicines only as told by [...] provider. Document Revised: 02/23/2021 Document Reviewed: 02/23/2021 [employer] Patient Education 2022 [employer]Church. Follow Up Care 08/28/2023 16:17:11 With:Cristóbal Lowe Address: [address] [place] [address], [address] [address]- [phone] Business (1) When: Unknown Comments:office will calll for follow up [facility]10-10-2023 NoteRadiology Colonoscopy, Adult A colonoscopy is a [...] including vitamins, herbs, eye drops, creams, and ebmx-usv-koxnffs medicines. ? Any problems you or family [...] tells you to take them. ? Taking sqzn-iix-ydqivmg medicines, vitamins, herbs, and supplements. General instructions [...] checked for cancer cells. (more content not included)...[facility] History of Present illness Narrative* Delphine Morton Richardhansa, AUTOMATION CONSULTANT-BUSINESS RISK ANALYST - 08/21/2023 2:00 PM EDT History of [...] ankle and would like to see an ankle/literacy specialist to look into this. Pt states [...] F/U pending referral results. [facility] of Present illness Narrative* Hector Lo [...] therapy? no Xrays? 06/23/2022 right kinee MRI? 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 no Xrays? 06/23/2022 right kinee MRI? 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 Additions if any: Earle Henderson MD, [facility] Bottom Crane Operator - [facility] History of Present illness Narrative* Delphine Morton Kristi, AUTOMATION CONSULTANT-BUSINESS RISK ANALYST - 03/31/2022 1:30 PM EDT History of [...] allergic to honey bee venom and penicillins. [place] and [place] pollen Family History family history includes Lipid [...] will refer to urology. documented in this [facility]05-25-2021 History of Present illness Narrative* Delphine Berry APRN-CNP - 04/12/2021 7:00 AM EDT History of Present Illness ED F/U for allergic reaction Patient presented to [facility] ED on 04/10/2021 with complaints [...] needed pending referral results. documented in this [facility]05-25-2021 Instructions* Patient Instructions* Delphine Berry APRN-CNP - [...] needed pending referral results. [facility] No data available for this section [facility] Future Appointments Appointment Date:12/10/2023 11:00:00 AM Scheduled Provider:Nadir GARCÍA MD Location:[facility] Appointment Type:URO [facility] Future Appointments Appointment Date:01/18/2024 11:00:00 AM Scheduled Provider:Nadir GARCÍA MD Location:[facility] Appointment Type:URO Office Visit [facility] evaluation + Plan note Future Appointments Appointment Date:01/18/2024 11:00:00 AM Scheduled Provider:Nadir GARCÍA MD Location:[facility] Appointment Type:URO Office Visit Diagnostic Tests Pending * Prostate Histology ([facility]) 01/01/24 [facility] Future Appointments Appointment Date:08/01/2024 11:00:00 AM Scheduled Provider:Nadir GARCÍA MD Location:[facility] Appointment Type:URO Office Visit [facility] evaluation + Plan note Future Appointments Appointment Date:12/29/2024 02:30:00 PM Scheduled Provider:Nadir GARCÍA MD Location:[facility] Appointment Type:URO Office Visit Future Scheduled Tests Laboratory* PSA Total 01/16/25 * PSA Total 02/05/24 * PSA Total 02/12/24 * PSA Total 02/19/24 * PSA Total 02/26/24 * PSA Total 03/04/24 * PSA Total 03/11/24 [facility] evaluation note* Diagnosis Environmental and seasonal allergies- Primary [facility] Diagnosis Routine general medical examination at a health care facility- Primary Elevated PSA Elevated prostate specific antigen (PSA) [facility]* Diagnosis Right knee pain, unspecified chronicity- Primary Acute medial meniscus tear, right, initial encounter [facility]* Diagnosis Primary osteoarthritis of right knee- Primary Primary localized osteoarthrosis, lower leg Subchondral insufficiency fracture of condyle of right femur, initial encounter Osteochondral defect of femoral condyle Acquired musculoskeletal deformity of other specified site [facility]* Diagnosis Routine general medical examination at a health care facility- Primary Elevated PSA Elevated prostate specific antigen (PSA) Urinary frequency Encounter for screening colonoscopy Special screening for malignant neoplasms, colon documented [facility]* Diagnosis History of UTI- Primary Personal history of urinary (tract) infection Acute on chronic prostatitis Sepsis without acute organ dysfunction, due to unspecified organism Chest pain, unspecified type Chest tightness Other chest pain Shortness of breath Other eczema documented in this encounter [facility] noteNo assessment information availableSelect Medical [facility] [place] Work Phone: Evaluation note* Diagnosis Acute on chronic prostatitis- Primary [facility] No data available for this section [facility] No data available for this section [facility] for referral (narrative)* Consultation (Routine) Status Reason Specialty Diagnoses / Procedures Referred By Contact Referred To Contact [facility] Allergy [facility] Immunology Diagnoses Environmental and seasonal allergies Delphine Berry APRN-CNP [address] [place] [address] Electronically signed by Delphine LONDONO at [facility] for referral (narrative)* Consultation (Routine) - New Request Specialty Diagnoses / Procedures Referred By Quan mendoza Referred To Contact Gastroenterology Diagnoses Encounter for screening colonoscopy Delphine Berry APRN-CNP [address] [place] [address] Luis A Weinberg MD [address] [place] [address] Referral ID Status Reason Start Date Expiration Date V isits Requested Visits Authorized [id number] New Request 08/21/2023 09/14/2024 1 1 * Consultation (Routine) - New Request Specialty Diagnoses / Procedures Referred By Quan mendoza Referred To Contact Urology Diagnoses Elevated PSA Urinary frequency Delphine Berry APRN-CNP [address] [place] [address] Referral ID Status Reason Start Date Expiration Date V isits Requested Visits Authorized [id number] New Request 08/21/2023 09/14/2024 1 1 [facility] Assessments Diagnosis Routine general medical examination at [...] trial medication for this. Script sent for [place]. Advised on med, how to take potential [...] look into further with cardiovascular work-up per cable layer as well as carotid U/S and consideration [...] years and is described as sustaining erections. 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 Ejaculatory problems [...] trial medication for this. Script sent for [place]. Advised on med, how to take potential [...] for clot process. States goes Sunday to [facility] for [place]. States is using crutches. States [...] is intact. Romberg sign negative. Coordination normal. Bdvxhp-[id number]-Epdaxg Test normal. Gait: Gait is intact. Gait [...] look into further with cardiovascular work-up per cable layer as well as carotid U/S and consideration [...] left knee Delphine Berry APRN-CNP [address] [place] [address] [facility] [address] [place] [id number] Status Reason Specialty Diagnoses / Procedures Referred By Contact Referred To Contact New Request Diagnoses Right calf pain Localized swelling of right lower leg Procedures MRI KNEE RIGHT WITHOUT CONTRAST SC MRI LOWER EXTREM JT, W/O CONTRAST Delphine Berry APRN-CNP [address] [place] [address] Status Reason Specialty Diagnoses / Procedures Referred By Contact Referred To Contact Auth Not Needed Diagnoses Right calf pain Localized swelling of right lower leg Procedures US DUPLEX EXTREMITY DVT RIGHT Delphine Berry APRN-CNP [address] [place] [address] Specialty Diagnoses / Procedures Referred By Contac t Referred To Contact Diagnoses Right knee pain, unspecified chronicity Acute medial meniscus tear, right, initial encounter Procedures MRI KNEE RIGHT WITHOUT CONTRAST SC MRI LOWER EXTREM JT, W/O CONTRAST Earle Henderson MD [address] [place] [address] [place] [address] Referral ID Status Reason Start Date Expiration Date V isits Requested Visits Authorized [id number] New Request 06/28/2022 07/23/2023 1 1 Summary [...] Care Teams (unrecognized sec tion and content) Diabetes Specialist Relationship Specialty Start Date End Date [facility] P[facility] - General Nurse Practitioner - Family 12/07/17 Diabetes Specialist Relationship Specialty Start Date End Date Delphine Berry APRNBUSINESS RISK ANALYST PCP - General Nurse Practitioner - Family 12/07/17 Diabetes Specialist Relationship Specialty Start Date End Date Delphine Berry APRNBUSINESS RISK ANALYST PCP - General Nurse Practitioner - Family 12/07/17 Diabetes Specialist Relationship Specialty Start Date End Date Delphine Berry APRNBUSINESS RISK ANALYST PCP - General Nurse Practitioner - Family 12/07/17 Diabetes Specialist Relationship Specialty Start Date End Date Delphine Berry APRN-CNP PCP - General Nurse Practitioner - Family 12/07/17 Diabetes Specialist Relationship Specialty Start Date End Date Delphine Berry APRN-CNP PCP - General Nurse Practitioner - [facility] 12/07/17 Team Status: Active Member Role Status Dates Arnold Moya MD Primary Care Provider Active Team Status: Inactive Member Role Status Dates Nikita Rodney MD Attending Provider Active Sta rt: March 10, 2024 End: March 10, 2024 Arnold Moya MD Primary Care Provider Active Start: March 10, 2024 End: March 10, 2024 Diabetes Specialist Relationship Specialty Start Date End Date Delphine Berry APRN-CNP PCP - General Nurse Practitioner - [facility] 12/07/17 (unrecognized sect ion and content) No Status Records FoundNo Status Records FoundNo Status Records Found INFORMATION SOURCE (unrecogn ized section and content) DATE CREATED AUTHOR 09/10/2022 [facility] DATE CREATED AUTHOR AUTHOR'S ORGANIZ ATION 03/13/2024 [facility] DATE CREATED AUTHOR AUTHOR'S ORGANIZ ATION 05/10/2024 [facility] Goals (unrecognized section and content) Goals [...] BE BASED ON THE PRIMARY CLINICAL RECORDS. [facility]. provides no warranty or guarantee of the accuracy or completeness of information in this document.
== END 2024-08-07 15:13 | disposition home or self-care (01) ==
LOC: EC 15:12
PROVIDERS: Visit Provider Physician Assistant
DX: M25.572 Pain in left ankle and joints of left foot (principal); M24.672 Ankylosis, left ankle
CPT/HCPCS: 73610

== ENCOUNTER 2024-09-01 09:49 | Outpatient (OUT) | payer BC, SELFPAY ==
--- NOTE | 2024-09-01 09:53 | CT_ITS ---
[address] [address] Patient Name: STEVE JOHN MRN: [id number] date: 1965 Sex: M Assigned Patient Location: CT Current Patient Location: CT Accession/Order Number: [id number] Exam Date: 09/01/2024 10:22 Report Date: 09/01/2024 13:39 At the request of: NICOLE GRIFFIN Procedure: CT ankle LT wo con EXAMINATION: CT ankle LT wo con HISTORY: Post-traumatic arthritis left ankle COMPARISON: 08/07/2024 TECHNIQUE: Multi-planar CT images were created without IV contrast. Dose reduction techniques were achieved by using automated exposure control and/or adjustment of mA and/or kV according to patient size and/or use of iterative reconstruction technique. FINDINGS: BONES: Ankle fusion with multiple cannulated screws. 2 screws across the distal tibia. No mechanical failure. 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 No acute fracture or dislocation. Permeative pattern of the bones consistent with osteopenia. Moderate degenerative changes with joint space narrowing marginal osteophyte formation . Remote distal fibular resection SOFT TISSUES: Moderate diffuse soft tissue swelling EFFUSION: None visible. OTHER: Negative. CT/CT ankle LT wo con IMPRESSION: Stable tibiotalar fusion with partial bony bridging and no mechanical failure Electronically authenticated by: OTILIA MEYER Date: 09/01/2024 13:39
--- OUTSIDE RECORDS SUMMARY | 2024-09-01 10:07 | XMS_ITS | CCD ---
Author Organization [facility] Care Team Providers Care Transportation Aide Name Role Phone Trubachik, Delphine A Unavailable [phone] [place] VEGETABLE SPECKER-HOME PLANNING CONSULTANT SALESPERSON, Delphine A Primary Care Provide r ARNOLD MOYA Primary Care Physician Jade Tinajero Unavailable Unavailable TRUBACHIK, DELPHINE Primary Care Physician Tr[place] VEGETABLE SPECKER-HOME PLANNING CONSULTANT SALESPERSON, Delphine A Primary Care Provide r SELF, SELF Referring Unavailable TRUBACHIK, DELPHINE Primary Care Unavailable EARLE HENDERSON Attending Unavailable TRUBACHIK, DELPHINE Primary Care Unavailable EARLE HENDERSON Referring Unavailable EARLE HENDERSON Attending Unavailable TRUBACHIK, DELPHINE Primary Care Unavailable EARLE HENDERSON Attending Unavailable SELF, SELF Referring Unavailable [place] VEGETABLE SPECKER-HOME PLANNING CONSULTANT SALESPERSON, Delphine A Primary Care Provide r PATRICK KLEIN Referring Unavailable PATRICK KLEIN Attending Unavailable PATRICK KLEIN Admitting Unavailable TRUBACHIK, DELPHINE Primary Care Unavailable TRUBACHIK, DELPHINE Primary Care Unavailable Nadir GARCÍA Attending Unavailable TRUBACHIK, DELPHINE Referring Unavailable TRUBACHIK, DELPHINE Primary Care Unavailable Jennifer Guan Attending Unavailable ARNOLD MOYA Referring Unavailable TRUBACHIK, DELPHINE Primary Care Unavailable Nadir GARCÍA Attending Unavailable TRUBACHIK, DELPHINE Primary Care Unavailable Nadir GARCÍA Attending Unavailable TRUBACHIK, DELPHINE Primary Care Unavailable Nadir GARCÍA Attending Unavailable TRUBACHIK, DELPHINE Primary Care Unavailable TRUBACHIK, DELPHINE Referring Unavailable Nadir GARCÍA Attending Unavailable TRUBACHIK, DELPHINE Primary Care Unavailable TRUBACHIK, DELPHINE Primary Care Unavailable WILDA SEBASTIAN Attending Unavailable JAZ, WILDA Primary Care Unavailable WILDA SEBASTIAN Admitting Unavailable TRUBACHIK, DELPHINE Attending Unavailable [facility], [facility] Primary Care Unavailable TRUB[facility]IK, [facility] Admitting Unavailable Rod Brown Attending Unavailable MoLouisa amos Admitting Unavailable TRUBACHIK, [facility] Primary Care Unavailable Blank, Nikita S Consulting Unavailable Blank, Nikita S Consulting Unavailable Blank, Nikita S Consulting Unavailable Blank, Nikita S Consulting Unavailable Blank, Nikita S Consulting Unavailable Blank, Nikita S Consulting Unavailable Blank, Nikita S Consulting Unavailable Blank, Nikita S Consulting Unavailable Blank, Nikita S Consulting Unavailable Blank, Nikita S Consulting Unavailable Kontak, Marvel Morton Consulting Unavailable Rod Brown Admitting Unavailable Louisa Soriano Attending Unavailable TRUBACHIK, [facility] Primary Care Unavailable MD Marvel Patel Consulting Unavailable Kontahansa, Marvel Morton Consulting Unavailable TRUBACHIK, [facility] Primary Care Unavailable Amauri Tran Attending Unavailable TRUBACHIK, [facility] Primary Care Unavailable Cristóbal Lowe Talsudhakar Referring Unavaila ble SarminiCristóbalal Attending Unavaila ble Sarmini, Ambrocio Talal Admitting Unavaila ble Nadir GARCÍA R Admitting Unavailable GARCÍA, Nadir R Referring Unavailable Nadir GARCÍA R Attending Unavailable TRUBACHIK, [facility] Primary Care Unavailable WILDA SEBASTIAN Primary Care Physician SELF, SELF Referring Unavailable TRUBACHIK, DELPHINE Attending Unavailable TRUBACHIK, [facility] Primary Care Unavailable TRUBACHIK, [facility] Primary Care Unavailable SELF, SELF Referring Unavailable TRUBACHIK, DELPHINE Attending Unavailable SELF, SELF Referring Unavailable WILDA SEBASTIAN B Attending Unavailable WILDA SEBASTIAN B Primary Care Unavailable Jaz MEIER-Wilda LECHUGA Primary Care Provider WILDA SEBASTIAN Admitting Unavailable WILDA SEBASTIAN Primary Care Unavailable WILDA SEBASTIAN Attending Unavailable Allergies Allergy Classification Reported Allergen(s) Allergy Type Date of Onset Reaction(s) Facility Bee/Wasp/Ant Venom (1 source) Honey bee venom Substance Allergy 1 [facility] Work Phone: Penicillins (antibiotic) (1 source) Penicillins Drug Allergy 8 [facility] (20 sources) Penicillins; Translations: [penicillins] Propensity to adverse reactions to drug 8 Unknown (qualifier value), Rash [facility] Work Phone: (9 sources) Honey bee venom Propensity to adverse reactions to drug 1 Swelling [facility] (8 sources) Pollen Propensity to adverse reactions to drug 2 [facility] (4 sources) Penicillins Propensity to adverse reactions to drug 8 Rash [facility] (1 source) bee sting Allergy to substance 4 Unknown Reaction [facility] Medications Current Medications Medication Drug Class(es) Dates Sig (Normalized) Sig (Original) acetaminophen 325 mg oral tablet (4 sources) Start: 03-07-2013 Tylenol 325 mg Tab 650 mg = 2 tab(s), Oral, PRN as needed for pain, Refills(s) 0 Start Date: 03/07/13 Status: Ordered 24 hr alfuzosin hydrochloride 10 mg extended release oral tablet (13 sources) alpha-Adrenergic Steven Start: 03-10-2024 Alfuzosin Active [...] Daily, # 30 tab(s), Refills(s) 11, Pharmacy: [facility], 178, cm, 12/10/23 11:59:00 EST, Height/Length Dosing, 82, kg, 12/10/23 11:59:00 EST, Weight Dosing Start Date: 12/10/23 Status: Ordered Ascorbic Acid (17 sources) Vitamin C Start: 03-10-2024 take 1 [...] Daily, # 21 tab(s), Refills(s) 0, Pharmacy: [facility] Start Date: 05/07/19 Status: Ordered Start: 05-07-2019 take 1 tablet by colleen th once daily Ecotrin 325 mg Tab-EC 325 mg = 1 tab(s), Oral, Daily, # 21 tab(s), Refills(s) 0, Pharmacy: [facility] Start Date: 05/07/19 Status: Ordered Calcium (10 sources) Phosphate Binder, Calcium CALCIU M PO [...] day(s), # 28 cap(s), Refills(s) 0, Pharmacy: [facility], 178, cm, 01/10/24 10:05:00 EST, Height/Length Dosing, 82.6, kg, 01/10/24 10:05:00 EST, Weight Dosing Start Date: 01/10/24 Stop Date: 01/17/24 Status: Ordered cetirizine hydrochloride 10 mg oral tablet (10 sources) Histamine-1 Receptor Antagonist Start: 03-10-2024 take 1 tablet by mouth once daily Cetirizine (Zyrtec) 10 mg tablet Active 10 MG PO Daily March 10, 2024 12:00am cholecalciferol 1.25 mg oral capsule (1 source) Vitamin D Start: 06-09-2024 take 1 capsule by mouth once daily Cholecalciferol (Vitamin D3) 1.25 MG (19277 UT) capsule Take 1 capsule by mouth daily. 06/09/2024 Active diazePAM 10 mg oral tablet (2 sources) Benzodiazepine Start: 12-10-2023 take 1 tablet by mouth every hour as needed for anxiety Valium 10 mg Tab 10 mg = 1 tab(s), Oral, As Directed, PRN for anxiety, Take one hour prior to procedure., # 1 tab(s), Refills(s) 0, Pharmacy: [facility], 178, cm, 12/10/23 11:59:00 EST, Height/Length Dosing, 82, kg, 12/10/23 11:59:00 EST, Weight Dosing Start Date: 12/10/23 Status: Ordered EPINEPHrine (11 sources) alpha-Adrenergic Agonist, beta-Adrenergic Agonist, Catecholamine Start: [...] day(s), # 14 tab(s), Refills(s) 0, Pharmacy: [facility], 178, cm, 01/04/24 16:00:00 EST, Height/Length Dosing, 83.6, kg, 01/04/24 16:00:00 EST, Weight Dosing Start Date: 01/07/24 Stop Date: 01/21/24 Status: Ordered magnesium oxide 500 mg oral capsule (1 source) take 1 capsule by mouth once daily Magnesium 500 MG capsule Take 1 capsule by mouth daily. Active 24 hr mirabegron 50 mg extended release oral tablet (1 source) beta3-Adrenergic Agonist Start: 01-18-2024 take 1 tablet by mouth once daily Myrbetriq 50 mg oral tablet, extended release 50 mg = 1 tab(s), Oral, Daily, # 30 tab(s), Refills(s) 11, Pharmacy: [facility], 178, cm, 01/18/24 11:25:00 EST, Height/Length Dosing, 82, kg, 01/18/24 11:25:00 EST, Weight Dosing Start Date: 01/18/24 Status: Ordered Multivitamin preparation (1 source) Start: 03-10-2024 take 1 tablet by mouth once daily Multivitamin Active 1 TAB PO Daily March 10, 2024 12:00am multivitamin tablet (12 sources) take 1 tablet by mouth once [...] Daily, # 30 tab(s), Refills(s) 11, Pharmacy: [facility], 178, cm, 01/18/24 11:25:00 EST, Height/Length Dosing, 82, kg, 01/18/24 11:25:00 EST, Weight Dosing Start Date: 01/18/24 Status: Ordered rosuvastatin calcium 20 mg oral tablet (20 sources) HMG-CoA Reductase Inhibitor Start: 08-18-2024 End: 11-16-2024 take 1 tablet by mouth once daily Rosuvastatin 20 MG tablet Indications: Mixed hyperlipidemia Take 1 tablet by mouth daily. 90 tablet 08/18/2024 11/16/2024 Active Start: 03-10-2024 take 20 mg by mouth once daily Rosuvastatin Active 20 MG PO Daily March 10, 2024 12:00am Start: 06-28-2018 End: 08-21-2023 take 1 tablet by mouth once daily rosuvastatin 20 mg Tab 20 mg = 1 tab(s), Oral, Daily, High cholesterol Start Date: 05/02/19 Status: Ordered S.A.S (Saline, Administration of drug, Saline) (4 sources) Start: 01-28-2024 S.A.S (Saline, Administration of drug, Saline) S.A.S (Saline, Administration of drug, Saline), Print Requisition, Supply Start Date: 01/28/24 Status: Ordered S.A.S.H (saline, Administration of drug, Saline, Heparin) (4 sources) Start: 01-28-2024 S.A.S.H (salin e, Administration of drug, Saline, Heparin) S.A.S.H (saline, Administration of drug, Saline, Heparin), Print Requisition, Supply Start Date: 01/28/24 Status: Ordered sulfamethoxazole 800 mg / trimethoprim 160 mg oral tablet (6 sources) Dihydrofolate Reductase Inhibitor Antibacterial, Sulfonamide Antimicrobial Start: 03-17-2024 sulfamethoxazole-tri m ethoprim 800 mg-160 mg Tab Refill(s) 0 Start Date: 03/17/24 Status: Ordered Start: 03-10-2024 End: 08-21-2024 take 1 tablet by mouth twice daily Sulfamethoxazole-trimethoprim 800-160 MG per tablet Take 1 tablet by mouth 2 times daily. 03/10/2024 08/21/2024 Discontinued (Patient Preference) tadalafil 20 mg oral tablet (1 source) Phosphodiesterase 5 Inhibitor Start: 01-18-2024 Cialis 20 mg Tab 20 mg = 1 tab(s), Oral, As Directed, PRN for sexual activity. Do not exceed 20mg within 48 hours., # 30 tab(s), Refills(s) 4, Pharmacy: [facility], 178, cm, 01/18/24 11:25:00 EST, Height/Length Dosing, 82, kg, 01/18/24 11:25:00 EST, Weight Dosing Start Date: 01/18/24 Status: Ordered zinc acetate 50 mg oral capsule (1 source) Start: 03-10-2024 take 50 mg by mouth once daily Zinc Acetate Active 50 MG PO Daily March 10, 2024 12:00am zinc gluconate 50 mg oral tablet (3 sources) take 1 tablet by mouth once daily Zinc 50 MG tablet Take 1 tablet by mouth daily. Active Completed/Discontinued Medications Medication Drug Class(es) Dates Sig (Normalized) Sig (Original) acetaminophen 325 mg / HYDROcodone bitartrate 5 mg oral tablet (4 sources) Opioid Agonist Start: 9 [place] 325 mg-5 mg oral tablet See Instructions, for pain, 40 tab(s), Refill(s) 0, 1 - 2 po q4-6h prn pain Dx: M67.52 Duration: 7 days, [facility] Start Date: 05/07/19 Status: Ordered diphenhydrAMINE [...] tablet 0 03/17/2019 12/26/2019 Discontinued (Therapy completed) Probiotic Product (PROBIOTIC 10 ULTRA STRENGTH PO) (3 sources) End: 08-21-2024 Probiotic Product (PROBIOTIC 10 ULTRA STRENGTH PO) Take by mouth. 08/21/2024 Discontinued (Patient Preference) Probiotic Produc t (PROBIOTIC 10 ULTRA STRENGTH PO) Take by mouth. Active sildenafil 100 mg oral tablet (9 sources) [...] Translations: [Hyperlipidemia, unspecified] Onset: 4 12-12-2017 Chronic Genitourinary symptoms and ill-defined conditions (2 sources) Increased frequency of urination; Translations: [Frequency of micturition] 08-21-2023 Episodic Glaucoma (20 sources) Glaucoma; Translations: [Unspecified glaucoma] Onset: 0 01-30-2020 Chronic Heart valve disorders (10 sources) Heart murmur; Translations: [Cardiac murmur, unspecified] 12-10-2023 Episodic Hyperplasia of prostate (13 sources) Benign prostatic hypertrophy with outflow obstruction; Translations: [Benign prostatic hyperplasia with lower urinary tract symptoms] Onset: 4 Chronic Inflammatory conditions of male genital organs (7 sources) Chronic prostatitis; Translations: [Chronic prostatitis] Onset: 4 Chronic Joint disorders and dislocations; trauma-related (1 source) [...] source) Long-term current use of antibiotic; Translations: [assisted (current) use of antibiotics] 03-10-2024 Episodic Other connective tissue disease (13 sources) Plantar fasciitis 05-02-2019 Episodic Comment on above: RIGHT FOOT Other connective tissue disease (2 sources) Pain of right calf; Translations: [Right calf pain] Other diseases of bladder and urethra (2 sources) Detrusor overactivity; Translations: [Overactive bladder] Onset: 4 Chronic Other diseases of bladder and urethra (5 sources) Overactive bladder 01-18-2024 Chronic Other infections; including parasitic (1 source) H/O: infectious disease; Translations: [Personal history of other infectious and parasitic diseases] Onset: 4 Episodic Other infections; including parasitic (3 sources) History of sepsis 03-17-2024 Episodic Other liver diseases (1 source) Abnormal levels of other serum enzymes; Translations: [Liver enzyme elevation] Episodic Other lower respiratory disease (1 source) Dyspnea; Translations: [Shortness of breath] 02-11-2024 Episodic Other male genital disorders (1 source) Impotence of organic origin; Translations: [Erectile dysfunction, unspecified erectile dysfunction type] Chronic Other male genital disorders (4 sources) Male erectile dysfunction, unspecified; Translations: [Erectile dysfunction] Onset: 4 Chronic Other male genital disorders (7 sources) Prostatic intraepithelial neoplasia; Translations: [Prostatic intraepithelial neoplasia] Onset: 4 Episodic Other non-traumatic joint disorders (15 sources) Knee pain; Translations: [Acute pain of [...] lower leg] Episodic Other upper respiratory disease (10 sources) Allergic disposition; Translations: [Other allergic rhinitis] Onset: 1 Chronic Pathological fracture (1 source) Fracture of femoral condyle; Translations: [Pathological fracture, right femur, initial encounter for fracture] Episodic Phlebitis; thrombophlebitis and thromboembolism (1 source) Phlebitis; Translations: [Phlebitis and thrombophlebitis of unspecified site] Onset: 4 Episodic Unclassified (15 sources) Patient encounter status; Translations: [Routine general [...] Problem Date Documented Date Episodic/Chronic Esophageal disorders (11 sources) Gastroesophageal reflux disease without esophagitis; Translations: [Gastro-esophageal reflux disease without esophagitis] Onset: 01-30-2020 Resolved: 01-30-2020 01-30-2020 Chronic Inflammatory conditions of male genital organs (6 sources) Prostatitis; Translations: [Inflammatory disease of prostate, unspecified] Onset: 01-04-2024 Episodic Septicemia (except in labor) (4 sources) Sepsis; Translations: [Sepsis, unspecified organism] Onset: 01-04-2024 Episodic Results Test Name Value Interpretation Reference Range Facility CBC w/ Auto Diffon 4 Basophils/100 WBC (Bld) 0.7 % Normal 0.0-2.0 [facility] Comment on above: Performed By: #### 2 [id number] #### [facility] [address] [place] [address] Basophils/Leukocytes Auto (Bld) [Pure # fraction] 0.0 E9/L Normal 0.0-0.2 [facility] Comment on above: Performed By: #### 2 [id number] #### [facility] [address] [place] [address] Eosinophils (Bld) [#/Vol] 0.2 E9/L Normal 0.0-0.5 [facility] Comment on above: Performed By: #### 2 [id number] #### [facility] [address] [place] [address] Eosinophils/100 WBC (Bld) 3.5 % Normal 0.0-8.0 [facility] Comment on above: Performed By: #### 2 [id number] #### [facility] [address] [place] [address] Erythrocyte distribution width (RBC) [Ratio] 13.0 % Normal 10.9-14.2 [facility] Comment on above: Performed By: #### 2 [id number] #### [facility] [address] [place] [address] Hematocrit (Bld) [Volume fraction] 44.3 % Normal 37.7-49.0 [facility] Comment on above: Performed By: #### 2 [id number] #### [facility] [address] [place] [address] Hemoglobin (Bld) [Mass/Vol] 15.7 g/dL Normal 13.5-17.5 [facility] Comment on above: Performed By: #### 2 [id number] #### [facility] [address] [place] [address] Lymphocytes (Bld) [#/Vol] 1.7 E9/L Normal 1.0-4.0 [facility] Comment on above: Performed By: #### 2 [id number] #### [facility] [address] [place] [address] Lymphocytes/100 WBC (Bld) 29.3 % Normal 14.0-50.0 [facility] Comment on above: Performed By: #### 2 [id number] #### [facility] [address] [place] [address] MCH (RBC) [Entitic mass] 32.5 pg Normal 27.0-34.0 [facility] Comment on above: Performed By: #### 2 [id number] #### [facility] [address] [place] [address] MCHC (RBC) [Mass/Vol] 35.5 g/dL Normal 31.4-36.0 [facility] Comment on above: Performed By: #### 2 [id number] #### [facility] [address] [place] [address] MCV (RBC) [Entitic vol] 91.5 fL Normal 80.0-100.0 [facility] Comment on above: Performed By: #### 2 [id number] #### [facility] [address] [place] [address] Monocytes (Bld) [#/Vol] 0.6 E9/L Normal 0.2-1.0 [facility] Comment on above: Performed By: #### 2 [id number] #### [facility] [address] [place] [address] Neutrophils (Bld) [#/Vol] 3.2 E9/L Normal 2.0-7.5 [facility] Comment on above: Performed By: #### 2 [id number] #### [facility] [address] [place] [address] Neutrophils/100 WBC (Bld) 56.3 % Normal 36.0-75.0 [facility] Comment on above: Performed By: #### 2 [id number] #### [facility] [address] [place] [address] Platelet mean volume (Bld) [Entitic vol] 9.3 fL Normal 6.4-10.8 [facility] Comment on above: Performed By: #### 2 [id number] #### [facility] [address] [place] [address] Platelets (Bld) [#/Vol] 148.0 E9/L Low 150.0-500.0 [facility] Comment on above: Performed By: #### 2 [id number] #### [facility] [address] [place] [address] RBC (Bld) [#/Vol] 4.8 E12/L Normal 4.3-5.9 [facility] Comment on above: Performed By: #### 2 [id number] #### [facility] [address] [place] [address] WBC corrected for nucl RBC Auto (Bld) [#/Vol] 5.7 E9/L Normal 4.0-11.0 [facility] Comment on above: Performed By: #### 2 [id number] #### [facility] [address] [place] [address] CHEMISTRYOrdered By: SYSTEM SYSTEM on 08-19-2024 Albumin [Mass/Vol] 4.7 g/dL Normal 3.3 - 5.0 gm/dL [facility] Albumin/Globulin [Mass ratio] 1.7 {ratio} Normal 1.1 - 2.2 [facility] ALP [Catalytic activity/Vol] 56 [iU]/d Normal 21 - 98 Int._Unit/L [facility] ALT No additional P-5'-P [Catalytic activity/Vol] 26 [iU]/d Normal 6 - 46 Int._Unit/L [facility] Anion gap [Moles/Vol] 10 mmol/L Normal 6 - 16 mEq/L [facility] AST [Catalytic activity/Vol] 21 [iU]/d Normal 5 - 43 Int._Unit/L [facility] Bilirubin [Mass/Vol] 0.8 mg/dL Normal 0.0 - 1 .1 mg/dL [facility] Calcium [Mass/Vol] 10.0 mg/dL Normal 8.9 - 11. 1 mg/dL [facility] Chloride [Moles/Vol] 106 mmol/L Normal 101 - 1 11 mmol/L [facility] Cholesterol [Mass/Vol] 121 mg/dL Normal 120 - 200 mg/dL [facility] Cholesterol in HDL [Mass/Vol] 40 mg/dL Invalid Interpretation Code [facility] Comment on above: Result Comment: '>= 60 LOW RISK' '<= 40 HIGH RISK' Cholesterol in LDL [Mass/Vol] 65 mg/dL Normal <=129mg/dL [facility] Cholesterol in VLDL [Mass/Vol] 24 mg/dL Normal 7 - 40 mg/dL [facility] CO2 [Moles/Vol] 29 mmol/L Normal 21 - 31 mmol/L [facility] Creatinine [Mass/Vol] 1.0 mg/dL Normal 0.5 - 1.3 mg/dL [facility] eGFR 87 mL/min/1.73 m2 Normal >=59mL/min / 1.73 m2 [facility] Globulin (S) [Mass/Vol] 2.7 g/dL Normal 1.4 - 4.0 gm/dL [facility] Glucose [Mass/Vol] 101 mg/dL Normal 55 - 199 mg/dL [facility] Potassium [Moles/Vol] 4.4 mmol/L Normal 3.5 - 5.3 mmol/L [facility] Prostate specific Ag [Mass/Vol] 6.8 ng/mL High 0.1 - 3.5 ng/mL [facility] Comment on above: Interpretive Data: T he concentration of PSA determined by different manufacturers can vary due to differences in assay methods and reagent specificity. Values obtained from different assay methods cannot be used interchangeably. The methodology used for this result was chemiluminescence using [employer]ite[employer] PSA reagent. Protein [Mass/Vol] 7.4 g/dL Normal 6.0 - 7.8 gm/dL [facility] Sodium [Moles/Vol] 141 mmol/L Normal 135 - 145 mmol/L [facility] Triglyceride [Mass/Vol] 118 mg/dL Normal <=149mg/dL [facility] Urea nitrogen [Mass/Vol] 18 mg/dL Normal 5 - 21 mg/dL [facility] Urea nitrogen/Creatinine [Mass ratio] 18 mg/mg Normal 10 - 20 [facility] CMPon 08-19-2024 Albumin [Mass/Vol] 4.7 g/dL Normal 3.3-5.0 [facility] Comment on above: Performed By: #### 2 [id number] #### [facility] [address] [place] [address] Albumin/Globulin (S) [Mass conc ratio] 1.7 Normal 1.1-2.2 [facility] Comment on above: Performed By: #### 2 [id number] #### [facility] [address] [place] [address] ALP [Catalytic activity/Vol] 56 Int._Unit/L Normal 21-98 [facility] Comment on above: Performed By: #### 2 [id number] #### [facility] [address] [place] [address] ALT No additional P-5'-P [Catalytic activity/Vol] 26 Int._Unit/L Normal 6-46 [facility] Comment on above: Performed By: #### 2 [id number] #### [facility] [address] [place] [address] Anion gap [Moles/Vol] 10 mmol/L Normal 6-16 [facility] Comment on above: Performed By: #### 2 [id number] #### [facility] [address] [place] [address] AST [Catalytic activity/Vol] 21 Int._Unit/L Normal 5-43 [facility] Comment on above: Performed By: #### 2 [id number] #### [facility] [address] [place] [address] Bilirubin [Mass/Vol] 0.8 mg/dL Normal 0.0-1.1 [facility] Comment on above: Performed By: #### 2 [id number] #### [facility] [address] [place] [address] Calcium [Mass/Vol] 10.0 mg/dL Normal 8.9-11.1 [facility] Comment on above: Performed By: #### 2 [id number] #### [facility] [address] [place] [address] Chloride [Moles/Vol] 106 mmol/L Normal 101-111 [facility] Comment on above: Performed By: #### 2 [id number] #### [facility] [address] [place] [address] CO2 [Moles/Vol] 29 mmol/L Normal 21-31 [facility] Comment on above: Performed By: #### 2 [id number] #### [facility] [address] [place] [address] Creatinine [Mass/Vol] 1.0 mg/dL Normal 0.5-1.3 [facility] Comment on above: Performed By: #### 2 [id number] #### [facility] [address] [place] [address] Globulin (S) [Mass/Vol] 2.7 g/dL Normal 1.4-4.0 [facility] Comment on above: Performed By: #### 2 [id number] #### [facility] [address] [place] [address] Glucose [Mass/Vol] 101 mg/dL Normal 55-199 [facility] Comment on above: Performed By: #### 2 [id number] #### [facility] [address] [place] [address] Potassium [Moles/Vol] 4.4 mmol/L Normal 3.5-5.3 [facility] Comment on above: Performed By: #### 2 [id number] #### [facility] [address] [place] [address] Protein [Mass/Vol] 7.4 g/dL Normal 6.0-7.8 [facility] Comment on above: Performed By: #### 2 [id number] #### [facility] [address] [place] [address] Sodium [Moles/Vol] 141 mmol/L Normal 135-145 [facility] Comment on above: Performed By: #### 2 [id number] #### [facility] [address] [place] [address] Urea nitrogen [Mass/Vol] 18 mg/dL Normal 5-21 [facility] Comment on above: Performed By: #### 2 [id number] #### [facility] [address] [place] [address] Urea nitrogen/Creatinine [Mass ratio] 18 No Units Normal 10-20 [facility] Comment on above: Performed By: #### 2 [id number] #### [facility] [address] [place] [address] HEMATOLOGYOrdered By: SYSTEM SYSTEM on 08-19-2024 Basophils/100 WBC (Bld) 0.7 % Normal 0.0 - 2.0 % Rem[facility] Basophils/Leukocytes Auto (Bld) [Pure # fraction] 0.0 E9/L Normal 0.0 - 0.2 E9/L [facility] Eosinophils (Bld) [#/Vol] 0.2 E9/L Normal 0.0 - 0.5 E9/L [facility] Eosinophils/100 WBC (Bld) 3.5 % Normal 0.0 - 8.0 % [facility] Erythrocyte distribution width (RBC) [Ratio] 13.0 % Normal 10.9 - 14.2 % [facility] Hematocrit (Bld) [Volume fraction] 44.3 % Normal 37.7 - 49.0 % [facility] Hemoglobin (Bld) [Mass/Vol] 15.7 g/dL Normal 13.5 - 17.5 gm/dL [facility] Lymphocytes (Bld) [#/Vol] 1.7 E9/L Normal 1.0 - 4.0 E9/L [facility] Lymphocytes/100 WBC (Bld) 29.3 % Normal 14.0 - 50.0 % [facility] MCH (RBC) [Entitic mass] 32.5 pg Normal 27. 0 - 34.0 pg [facility] MCHC (RBC) [Mass/Vol] 35.5 g/dL Normal 31.4 - 36.0 gm/dL [facility] MCV (RBC) [Entitic vol] 91.5 fL Normal 80.0 - 100.0 fL [facility] Monocytes (Bld) [#/Vol] 0.6 E9/L Normal 0.2 - 1.0 E9/L [facility] Monocytes/100 WBC (Bld) 10.2 % Normal 4.0 - 14.0 % [facility] Neutrophils (Bld) [#/Vol] 3.2 E9/L Normal 2.0 - 7.5 E9/L [facility] Neutrophils/100 WBC (Bld) 56.3 % Normal 36.0 - 75.0 % [facility] Platelet mean volume (Bld) [Entitic vol] 9.3 fL Normal 6.4 - 10.8 fL [facility] Platelets (Bld) [#/Vol] 148.0 E9/L Low 150. 0 - 500.0 E9/L [facility] RBC (Bld) [#/Vol] 4.8 E12/L Normal 4.3 - 5.9 E12/L [facility] WBC corrected for nucl RBC Auto (Bld) [#/Vol] 5.7 E9/L Normal 4.0 - 11.0 E9/L [facility] Lipid Panelon 08-19-2024 Cholesterol [Mass/Vol] 121 mg/dL Normal 120-200 [facility] Comment on above: Performed By: #### 2 [id number] #### [facility] [address] [place] [address] Cholesterol in HDL [Mass/Vol] 40 mg/dL Invalid Interpretation Code [facility] Comment on above: Result Comment: '>= 60 LOW RISK' '<= 40 HIGH RISK' Performed By: #### 2 [id number] #### [facility] [address] [place] [address] Cholesterol in LDL [Mass/Vol] 65 mg/dL Normal <=129 [facility] Comment on above: Performed By: #### 2 [id number] #### [facility] [address] [place] [address] Cholesterol in VLDL [Mass/Vol] 24 mg/dL Normal 7-40 [facility] Comment on above: Performed By: #### 2 [id number] #### [facility] [address] [place] [address] Triglyceride [Mass/Vol] 118 mg/dL Normal <=149 [facility] Comment on above: Performed By: #### 2 [id number] #### [facility] [address] [place] [address] PSA Screen, Totalon 08-19-20 24 Prostate specific Ag [Mass/Vol] 6.8 ng/mL High 0.1-3.5 [facility] Comment on above: Result Comment: The concentration of PSA determined by different manufacturers can vary due to differences in assay methods and reagent specificity. Values obtained from different assay methods cannot be used interchangeably. The methodology used for this result was chemiluminescence using [employer]s Access Hybritech PSA reagent. Performed By: #### 1 [id number] #### [facility] [address] [place] [address] eGFRon 08-19-2024 eGFR 87 mL/min/1.73 m2 Normal >=59 [facility] Comment on above: Performed By: #### 1 [id number] #### [facility] [address] [place] [address] Coding Summary.on 05-08-2024 Coding Summary. YQYVLagj46YZo0tFl+PG hl YWQ+VF2XSFCkH06kpRWpmM 8xT0PKXQyRZbpoRNNXMSqJ OqWsihPrMA4qpJMjRMYd IC8+YO2aXSIgDtlgrJSmq2 I3bUY4I00lrw2aFCewuWC5 EEXpCmMhjynqu9jbnUp4FP cuNmluOyBt HMOluU00GUH8dL42Oh04qE XkzYQft5acnCh3HuGiBHXm XDC1dQzkTTtbu3IwRJTtT0 7eaKUru6I7 IAAmjPxtpUEyPpLudUA3oM 3oIZbcywdal4nhnnjzRkh6 wg83pAWcb5B8tAB8A2Awzn X8WIFpxBEv TrlvkUELaX8hspvun5kctj oiDzVyXTYiOGr9BPn9LUSk hMknRoRnHI88JHU5WJXdiy EvH0WoQNQi hQqyStG7y7S7Ms5MM6XREg otG3GKXUTLIWkzrJI+PC90 wf13G5VmDdfeWgp9YQLtDN C7yLU3oT4j KHMjMGfbd6V9dVB5G1Kpgr Szcw6vq8drQSXkUYhqZ70s cYCmy5V2ZTUhzAG5OFKbcN naCgQoxV77 Oyc+FWUyuGhti5YdVnzop4 gjs9zsuHd3QsbaLQPscbOh qRyqSPF4u7QsYl8sBPKdhE M8lHI4nM6r QdLhAyP3OSekK409SnKpcV AjLlgdC06wM2SrbNI+PHRy Vdf9DTDzaPyoOO2lS6JvMG RpbmctbGVm uXvoAH9eUEBhctxcJXVgiJ 1yTGLrX3v4WpFxIsU9OHbm H6CjDCHtqfqaHn21bE9mAz OyTgT9TKnm I1NctxL1BJCapBApIDfrXR A5B03vj3P5HERgJKJsMAR3 aFZ2rB8tdBenrvqtlRLapS sgdmVydGlj XTfsQPlaM552QFFcyMkqBk NvZGluZyBEYXRlOiAgMDYv MjAvMjAyNDwvdGQ+PHRkIH B5sKnrYBKj tVNbYMzbGt2msBuvzBroAK 6iIKFqjeaaAPVhrH9jPLJd zKMyaHlmFG1pSMJtgrnit6 06AnDeQKJ3 CQHvjXAgM7FwmC4pUtUyAU ZlQCIjE0NggGOqJNdrU056 FXswStY0KOPibyDnY8BfUB FsaWduOiB0 r6R7Ht1Pw6DwgmeaV4ZbiO GuBgPnQnlwOAu8D9QtGoyv dHI+DV27KETnED20TMc4CQ R1wRsrAUjj ANHzQ1NktO3lQrMkYBExCS RkOyc+PHRhYmxlIHdpZHRo KTvxBKUuTtXvuEkxOV4vZp 9yZGVyLWNv eStahYErPoDvh7gsPJLpPW ruWZ4xjTulL3OmqLA8OBXc e0q7Rs17X73sD1XwqZU+PG NrmCP0lQZ0 qS8aGrDlQuN8WBwpF175Mw FqiXAmVofoy6xyt8lkcBd8 GeB6VOWpnlExoRubASS9u4 MsMi28I68p IHdpZHRoPSIxNSUiIHZhbG qigv4tyC1qMc1+PGNvbCB3 wAF0kN6rClHqMyX6GWrbJ9 49InRvcCIv Jxvse8bja6mfhBb0XuUfPC EvtdDpgEtwPMX0q4PxXz70 H3NxwXtep6AnZli0ap22pL Fzi9C7uQE8 K8MbALRsdnfnjGMmdQqgNG 3hRCHnkyzyANHscW4nYOSi U2b9BbChLeI6WIxxS9Ctvd S6SLTgfLPe OZZzkSSPnA7hzxssu4bdpz pcYmAkPAZcGIj2IJu9GOWa cCczUsTtCGT1MiF8BYD4xA CfbU1fwDtr bvcdpZ5lEch+NQY4yGZwmD LXSI8vNwvmpKF+PHRkIHN0 bHunGVlcVRRsjG2lMWFxF4 p7FkLdZvV2 SQpfT1YayeE4OVLatMPdHZ WblYTZwZ3agtmyg3hrlvec MzZbBZNaUZm8WPl7VHDboN duOiBsZWZ0 SkR8OCK5bKTkmG3xvTfnxa pvbW7zHpb+QmlydGggRGF0 VQb3F4LdVcz3QBTgpNejPW 0ncGFkZGlu Oo4xvMxpvZvxXL5vXQUofr cit251QhJyj5ivFAOhlPWe LZwfJEN1H77pl7L1EVToIO CcLYA7uDV2 yW4dnZltzoylcASrdOvill BmzCcoNDgeMOleP926UKQx fUesWoZyDPz9Q9YkAri2CB TbgRjuIZ3v sOMkOVmwDs2puGshlCgwCB 5iMGMyapnev963RsGvg9jp BFVmiABaLDddTCC3G26rb8 D7WOZjQTMt EQK4mEJ1jE1rxRoiupsmqN VmdDsgdmVydGljYWwtYWxp T908CMGnpYtrBfAapIu1X2 ZmKfd4MEYe nMnmHX6qgIVdNEcnSx1nqJ xbmVifEJ8qAWWemfdjw986 LiCyi0ytQSJicUVeDFctNC W6M64jj6Y7 EOVrWPMuNAA4fWK5uK4tgB lnbjogbGVmdDsgdmVydGlj SOkjLAxaB098GDOymKwqKb BhdGllbnQg PIyyLZl5J8MqWsoqiZV+PC 50TGPhZM92aIGbmWVnw7ci dVu7ApFyQPJjGUQ7aPenDV ahi2HdFYVv A97aaIKxm2L0ZKGcvUeewP ZpGmShvWU1vO3pRMjowhfl u6hvlhhrSnewy6dlkg18bR 97H75zWRud ZHRoPSIzMCUiIHZhbGlnbj 4boC2oEm9+SDEezPW1sHN5 xN4xAPRvNsL2NKonK631Ny RvcCIvPjxj a5wej3adsWr1RaH7YFXqdf OqaQzzOPJ2t2UvLx91P27g IHdpZHRoPSIyMCUiIHZhbG azsx8nvL5t Ii8+NLKodBG5sOI1rV6oZe SmMnU6KLxmC254FoCxnLRy FbhgJ99eR7CdaCZ+PHRyPj y4OBGflUpg VC1zlHOvRRziHg8oMRA7Nd YdAuMoYGkyN1UqROQcvgmg yvzbpGL2FQUlUFYboM97Id 9udDogMTBw qSDTbH0ryeflr7tuofcmVa TyMKPrTLt9FYg1QDUmnMkf TiBjEVS2UwZ9RBC2pIVdfY 1hbGlnbjog rA7zG2OdFOIvsvayNs71vC 5eVsFqYxI0GBucNdv+Uk9U RtJNSbpqT6JWW50PJITRQN 21NH80cYLf d1P6qKN2K2KmRLFwhsuumt whvLJ3VSSmQDKpdJ67zRJn TFaxBj7bk8S3d717RUQnAS FydM33Co8f zHdvEGJrqTOKuA5ijjxii1 kkijeiRyYbKMBbAVb4OMs0 TIZcbAseHuTrIJA8JlY9GZ V8fQCakT0e gKpcdhuaaM3bMky+MDMvMD VzXYn5KesyvJZ+PHRkIHN0 hUgpZZkmKMQdhY6oFOXpA5 e0XqBySiY8 TOioS5NuXUYoqkrjZq15nG 6aThSwXuI2WIvdN8SzpfG6 FBSouOKtNJuoMOX9C54li3 V3MGFkKJGd QRD3yZM3wO6rpMyivbcvrL VmdDsgdmVydGljYWwtYWxp I655KRXqoWuaJjS6WJwrSN LbWA19IS82 sGQkw4W0oNJ2V3AcWVKhsk dmavtqdHJ8ERSvUTCyxD18 lKPaDKufGa5ns9W9p907QE EjIOFwjA41 Sa4vkZjwZZWugKWCgM1jwd vhr7oxtreaMqVrHOFxAKo1 YXh1WKFabQvnDhWuZJL0Wd J8YTL5pVFs dF4fmQkgpybztQ7fNey+TW FsZTwvdGQ+JZZtYBV9rIek QPwdACHmuI5mXZSfZ1v8By GjMeP9CDgp Q8TgVKInhifsOq98bK7wFj LwXoS0ZGukV0RrwxZ6UAYh gYJaVWrkCSH1O32gc5I6RL MwMDAwMDA7 vLB4tY3ogIyapxjilYPnbX onfqGxuYpiQMedHUjsN839 VPIevFhtZg19iSRsuFhxos E0Q4LfOvxh dHI+SZ30QUVlXT37dXSfpM Sbh7qvwSr7NvPxJGRiSMS7 yJfzKWwqc4GyOPFnD60ghQ Bqe3W3LWPw aZjpoNOrFkYwlLO1gZ2aVO npigtcv3xkyuyeIgilx0wd lk70zA18X86vSWaiHQVcYY IzMCUiIHZh zHphtf7sqW9fTx4+PGNvbC U9hBO4bB4gKiWtOdL4SKsm I410MqQwyPLgXhcei3exx4 vpqIf0GtLv KLSakrUinXliUXY8f8YmHp 44N94pLMzmJWUnDXLwJHMg RNEoaNlsgg2bsF3pCo0+PC 5aw7ueyv29 uP08mNZ+MHJbZDI4bXduRF esMRLluU1lRXfkTmR1CZIk ArZxhU55uJXtGVkcZr7stJ oadDlvMF2k UAIqbnmap351TdNxl5lyOW FzuPSrNVcsHEM3T33ee0T9 RGLkAVFdJBB4wVS1fT6xvU lnbjogbGVm dDsgdmVydGljYWwtYWxpZ2 96OKFauWnsSuIlnVPyY1fj otPUUR6bBjrvtPF+PHRkIH Q3yMjfCHgf AZKjnR4pBFXvB7f3JaUuXn J5PKzkZ2AvhvR5GAZqfYQx TPHogRPLoO2lykxdq9mefr ogIzAwMDAw KFn2VWr3GTTzrBmnOpBrDA J3CrU1AKE0hFXkbV5olIue gnvepQ6uClh+RklOOjwvdG Q+PHRkIHN0 gImcPInsCJHllV8sRLKrA4 m9CtRnPmJ7PTbbO9ZwzqU6 HSHhrIOaWUOuxYYRtP8mxh mrz8plcdyu LiAtHTBhCMq4VGn6JJIbpL pfZcWvCLA6HsI0ZBS4fBTz uU1acWblwbttiQ7vLqu+TV JOOjwvdGQ+ THXgXGM5oIluPUinEMDzwR 9aFZBkW8b6UfLfWwF3FMnj G6XvqpT1VWOpmJEgZEYrsS XNcI8xxkhk h5lbxvjiOdUtKJYnSUg6VQ e3ZZNayGjxKoQmPQS5GhR5 IKS6sKXqnS0voGxrzmneyI 9wOyc+UGF5 VOZ3DT49MH55T5VaGocteR FibGU+PHRhYmxlIHdpZHRo CNloOPSvBqLfaYpmYF0rBq 9yZGVyLWNv bGxhcHNlOiBjb (more content not included)... Normal [facility] CT Lower Extremity w/o Contr ast [...] Yoel Joya MD Transcribed by: JASON Technologist: , Normal [facility] US PVR Lower EXT Complete Bi [...] Joya MD Transcribed by: JASON Technologist: HAYDEN [facility] Consent for Treatmenton 04-19 Consent for Treatment [id number]#[id number] 0TIFF [facility] Physician Orderon 04-18-2024 Physician Order [id number]#1. 00TIFF [facility] Insurance Correspondenceon 0 04-17-2024 Insurance Correspondence [id number]#1. 00TIFF [facility] Patient Educationon 03-17-20 24 Patient Education [...] Where to find more information ? [employer]: www.cancer.org ? [employer]: www.auanet.org Contact a health care [...] flu (more content not included)... Normal [facility] Urology Office/Clinic Noteon 03-17-2024 Urology Office/Clinic Note Chief Complaint [facility] F/U HPI Staff Pt last seen in our office 01/18/24 DX: Elevated PSA, PIN, BPH, OAB, Chronic Prostatitis & ED S/P TRUS/Bx 01/01/24 Pt admitted to [facility] 01/04/24 due to sepsis. Then later Tx'd [...] office advised pt to go to ER. [facility] 01/25/24 CC: burning w/urination. As well as N&V NEG CT ap w/ 01/25/24 in ER patient was found to have [...] malignancy. HGPIN left mid. Pt presented to [facility] on 01/04/24 due to prostatitis, sepsis following TRUS/BX Pt was admitted and given IV abx, and oral abx on Sunday at discharge. Returned to ER 01/10/24 due to thrombophlebitis due to IV location on arm. [facility] again 01/25/24 due to sepsis secondary to UTI. PSA was drawn at that time. Advised pt this was PSA level was elevated due to infection, level not of concern. -Repeat PSA in 10 mos, order at [facility] 2. History of sepsis (Z86.19: Personal history of other infectious and parasitic diseases) [facility] 01/25/24 due to burning w/ urination. [...] concern. Follow-up With When Contact Information Nadir GARCAÍ MD, [facility] [address], [place] [address]- [phone] Additional Instructions: 10 mos w/ PSA Cortney (more content not included)... Normal [facility] Comment on above: Result Comment: Elec tronically Signed By: Nadir GARCÍA MD\.br\Date and Time Signed: 03/17/24 14:03 EDT\.br\Electronically Co-Signed By: Louise Oh\.br\Date and Time Co-Signed: 03/17/24 14:01 EDT POCT URINALYSIS DIPSTICK AUT OMATED W/O SCOPon 02-11-2024 Amorphous sediment LM Ql (Urine sed) [facility] Appearance (U) clear [facility] Bacteria LM Ql (Urine sed) [facility] Bilirubin Ql (U) Negative [facility] Casts LM.LPF (Urine sed) [#/Area] [facility] Color (U) yellow [facility] Crystals LM Nom (Urine sed) [facility] Epithelial cells.squamous LM.HPF (Urine sed) [#/Area] [facility] Flow cytometry specialist review Parth (Unsp spec) [Interp] [facility] Glucose Auto test strip (U) [Mass/Vol] Negative mg/dL [facility] Interpretation and review of laboratory results Normal [facility] Ketones [Mass/Vol] Negative mg/dL [facility] Leukocyte esterase Qn (U) [facility] Leukocyte esterase Test strip Ql (U) Negative [facility] Nitrite Ql (U) Negative [facility] pH (U) 5.5 [pH] 5 - 7 [facility] Protein Ql (U) Negative mg/dL [facility] RBC LM.HPF (Urine sed) [#/Area] [facility] RBC Ql (U) trace [facility] Specific gravity (U) [Rel density] 1.030 1.001 - 1.035 [facility] Transitional cells LM Ql (Urine sed) [facility] Urobilinogen Qn (U) 0.2 [facility] WBC LM.HPF (Urine sed) [#/Area] [facility] Monitor Recordon 01-30-2024 Monitor Record [id number]#1. 00TIFF Normal [facility] CBC w/ Auto Diffon Basophils/100 WBC (Bld) 0.4 % Normal 0.0-2.0 [facility] Comment on above: Performed By: #### 1 [id number], 8440423, 4844583, 36790448, 94716603, 7136920, 0208453, 4739435 #### [facility] [address] [place] [address] Basophils/Leukocytes Auto (Bld) [Pure # fraction] 0.0 E9/L Normal 0.0-0.2 [facility] Comment on above: Performed By: #### 1 6359303, 6874572, 1571924, 76758046, 84183804, 6363725, 5177818, 7396576 #### [facility] [address] [place] [address] Eosinophils (Bld) [#/Vol] 0.2 E9/L Normal 0.0-0.5 [facility] Comment on above: Performed By: #### 1 5123850, 6036177, 6329538, 79577194, 14883288, 1692735, 7556287, 5418459 #### [facility] [address] [place] [address] Eosinophils/100 WBC (Bld) 3.3 % Normal 0.0-8.0 [facility] Comment on above: Performed By: #### 1 5867677, 5909223, 4439610, 72269575, 32921880, 4503392, 7966075, 0808096 #### [facility] [address] [place] [address] Erythrocyte distribution width (RBC) [Ratio] 12.9 % Normal 10.9-14.2 [facility] Comment on above: Performed By: #### 1 7762760, 6508571, 6000162, 82223761, 64006220, 4328533, 4225439, 9727454 #### [facility] [address] [place] [address] Hematocrit (Bld) [Volume fraction] 37.2 % Low 37.7-49.0 [facility] Comment on above: Performed By: #### 1 6632826, 2696805, 5722375, 54272862, 56617820, 3883616, 3372709, 1388350 #### [facility] [address] [place], [place] [address] Hemoglobin (Bld) [Mass/Vol] 12.7 g/dL Low 13.5-17.5 [facility] Comment on above: Performed By: #### 1 7746914, 6804295, 8734113, 77362982, 70752990, 9702718, 0743752, 0411033 #### [facility] [address] [place] [address] Lymphocytes (Bld) [#/Vol] 1.5 E9/L Normal 1.0-4.0 [facility] Comment on above: Performed By: #### 1 0490329, 8225724, 6672587, 68633203, 74536681, 2111022, 6441231, 0411560 #### [facility] [address] [place] [address] Lymphocytes/100 WBC (Bld) 23.6 % Normal 14.0-50.0 [facility] Comment on above: Performed By: #### 1 5902440, 5627854, 0964752, 67755144, 94729200, 6943837, 2566921, 5572386 #### [facility] [address] [place] [address] MCH (RBC) [Entitic mass] 31.6 pg Normal 27.0-34.0 [facility] Comment on above: Performed By: #### 1 8276129, 0800834, 7871116, 57079917, 27972394, 9142767, 0840345, 8756987 #### [facility] [address] [place] [address] MCHC (RBC) [Mass/Vol] 34.2 g/dL Normal 31.4-36.0 [facility] Comment on above: Performed By: #### 1 7425037, 1168237, 3670209, 45744336, 15070075, 8612755, 3195404, 9513155 #### [facility] [address] [place] [address] MCV (RBC) [Entitic vol] 92.5 fL Normal 80.0-100.0 [facility] Comment on above: Performed By: #### 1 3892359, 0738281, 5350235, 69235263, 94086956, 1531938, 7272624, 0202841 #### [facility] [address] [place] [address] Monocytes (Bld) [#/Vol] 0.6 E9/L Normal 0.2-1.0 [facility] Comment on above: Performed By: #### 1 3528650, 0980280, 9966874, 78933057, 67179235, 4341659, 2104255, 5093234 #### [facility] [address] [place] [address] Neutrophils (Bld) [#/Vol] 4.0 E9/L Normal 2.0-7.5 [facility] Comment on above: Performed By: #### 1 1967030, 3494532, 0059033, 73329141, 42504857, 8183199, 6269232, 2164491 #### [facility] [address] [place] [address] Neutrophils/100 WBC (Bld) 63.2 % Normal 36.0-75.0 [facility] Comment on above: Performed By: #### 1 1938377, 9925058, 2269595, 11840211, 56997036, 3386111, 5929297, 0435335 #### [facility] [address] [place] [address] Platelet 132.0 E9/L Low 150.0-500.0 [facility] Comment on above: Performed By: #### 1 6262315, 4699011, 5826426, 62215719, 53538324, 1222376, 5490368, 7524931 #### [facility] [address] [place] [address] Platelet mean volume (Bld) [Entitic vol] 8.7 fL Normal 6.4-10.8 [facility] Comment on above: Performed By: #### 1 0100848, 4983849, 7379244, 55587645, 68849271, 5412778, 3109477, 3938900 #### [facility] [address] [place] [address] RBC (Bld) [#/Vol] 4.0 E12/L Low 4.3-5.9 [facility] Comment on above: Performed By: #### 1 2194422, 6352121, 0012728, 92873952, 08149755, 8201317, 5450155, 6612065 #### [facility] [address] [place] [address] WBC corrected for nucl RBC Auto (Bld) [#/Vol] 6.3 E9/L Normal 4.0-11.0 [facility] Comment on above: Performed By: #### 1 4882220, 3314945, 9954282, 39877618, 80700210, 6153953, 9117095, 5295881 #### [facility] [address] [place] [address] Consent for PICC lineon 03 Consent for PICC line [id number]#1. 00TIFF Rylee [facility] Consultation Noteon 01-29-20 Consultation Note Patient: [...] At risk for falls / SNOMED CT [id number] / Possible Problem added when Risk for Falls Careplan was initiated. BPH with urinary obstruction / SNOMED CT 6351397392 / Confirmed Chronic prostatitis / SNOMED CT 56137697 / Confirmed Acute glaucoma / SNOMED CT 45682150 / Confirmed Glaucoma / SNOMED CT 52693939 / Confirmed Heart murmur / SNOMED CT 508251493 / Confirmed High cholesterol / SNOMED CT 19469340 / Confirmed High cholesterol / SNOMED CT 67392561 / Confirmed Hyperlipemia / SNOMED CT 48286829 / Confirmed Knee pain, left / SNOMED CT 41806686 / Confirmed OAB (overactive bladder) / SNOMED CT 2122694723 / Confirmed Screen for colon cancer / SNOMED CT 206772908 / Confirmed Elevated PSA / SNOMED CT 8744586716 / Confirmed PIN (prostatic intraepithelial neoplasia) / SNOMED CT 592056577 / Confirmed Histories Past Medical History: Resolved Plantar fasciitis ([id number]): Resolved. Comments: 03/07/2013 EDT 12:51 EDT Lyubov Ramirez RN RIGHT FOOT Family History: Hyperlipidemia Father Mother Procedure history: TRUS/Bx ([id number]) on 01/01/2024 at 58 Years. Colonoscopy ([id number]) on 10/26/2023 at 58 Years. Arthroscopy of knee ([id number]) on 05/07/2019 at 54 Years. Comments: 05/07/2019 13:06 EDT Kerry Tobias RN, Bernice A Left knee ANKLE FRACTURE. Comments: 03/07/2013 [...] is unremar (more content not included)... Normal [facility] Comment on above: Result Comment: Elec tronically Signed By: Nikita Rodney M.D\Date and Time Signed: 01/29/24 13:22 EDT Discharge Instructionson Discharge Instructions [id number] TIFF Normal [facility] Discharge Note-Nursingon Discharge Note-Nursing STEVE [...] Test Results None Pharmacy Information [facility] Discharge Instructions Please return to ER if symptoms change or worsen. Follow-up as instructed. Previously Scheduled Follow-Up Appointments Sunday 11:00 AM EDT With: RICKY LEVIN, Nadir Mercado Where: [facility] Mandeep Normal [facility] Discharge Note-Nursing STEVE WILLIAMSON :1965 Visit [...] Test Results None Pharmacy Information [facility] Discharge Instructions Please return to ER if symptoms change or worsen. Follow-up as instructed. Previously Scheduled Follow-Up Appointments Sunday 11:00 AM EDT With: RICKY LEVIN, Nadir Mercado Where: [facility] Mandeep Rylee [facility] HEMATOLOGYOrdered By: Tonny Reyes on 01-29-2024 [...] Inpatient Clinical Summaryon 01-29-2024 Inpatient Clinical Summary [address] [address] Clinical Summary Person Information: Name: STEVE WILLIAMSON Age: 59 Years : 1965 Sex: Male PCP: DELPHINE BERRY NP Marital Status: Race: White Ethnicity: Non- or Language: Dominican Visit Id: Visit Reason: [id number] -BURNING W/URINATION Speciality: Acuity: Enc Type: Inpatient Med Service: Medical Arrival: 01/25/2024 13:32:51 Discharge: Dispo Type: Admitted as IP to this Hosp Address: [address] [place] [id number] Provider Notes: Diagnosis: Prostatitis; Sepsis; UTI (urinary [...] Address: When: Nikita Rodney [address] [place] [address] Business (1) Within 2 to 4 weeks With: Address: When: KRISTI MENA, DELPHINE [address] [place] [id number] Business (1) Within 5 to 7 days Comments: Call for followup appointment With: Address: When: RICKY LEVIN, Nadir Mercado, URL [facility] [address], [place] [address] Within 2 weeks Comments: Call for followup appointment Type Location Start [facility] Office Visit [facility] Mandeep 08/01/2024 11:00 AM 08/01/2024 11:15 AM Confirmed Patient Education Information: PICC Home Care Guide; Prostatitis, [id number] Normal [facility] Inpatient Patient Summaryon 01-29-2024 Inpatient Patient Summary [address] [address] Patient Discharge Instructions PERSON INFORMATION [...] up: With: Address: When: Nikita Rodney [address] [place] [address] Business (1) Within 2 to 4 weeks With: Address: When: KRISTI MENA, [address] [address] Business (1) Within 5 to 7 days Comments: Call for followup appointment With: Address: When: RICKY LEVIN, Nadir R, GERONIMO [facility] [address], [place] [address] Within 2 weeks Comments: Call for followup appointment In the event that this physician does not participate in your insurance network, please consult with your insurance company to find a nearby participating provider. Type Location Start [facility] Office Visit [facility] NOAH [place] 08/01/2024 11:00 AM 08/01/2024 11:15 AM Confirmed Comment: DORA Garcia GREGORY [...] the right pl (more content not included)... Normal [facility] Insurance Correspondence Off 01-29-2024 Insurance Correspondence Office [id number] [facility] Interdisciplinary Note - Merrill e Manageron 01-29-2024 Interdisciplinary Note - Lining Folder CRM to room to discuss DC planning. Patient is from home with his spouse. He will have transport at [place]. Patient verified PCP, home DME and insurance. Patient is here with Fever, Chills, Body aches. Has Bacteremia. Patient is assigned to Dr Brown. Patient will be seen by ID on Sunday. Patient will need antibiotics at [place]. The script was sent and patient is 100% coverage. Patient was accepted to [facility] for RN. Patient denied any DME needs. Patient was provided CRM contact, white board updated. CRM following Patient will DC home later today, see Dr Dumont notes. [facility] Comment on above: Result Comment: Elec tronically Signed By: Elba Guo\.gerhard\Date and Time Signed: 01/29/24 09:47 EDT Interdisciplinary Note - Merrill e Manageron 01-28-2024 Interdisciplinary Note - Lining Folder CRM to room to discuss DC planning. Patient is from home with his spouse. He will have transport at [place]. Patient verified PCP, home DME and insurance. Patient is here with Fever, Chills, Body aches. Has Bacteremia. Patient is assigned to Dr Brown. Patient will be seen by ID on Sunday. Patient will need antibiotics at [place]. He prefers HH route and he will learn administration. Patient denied any DME needs. Patient was provided CRM contact, white board updated. CRM following CRM placed HH referrals, will await acceptance 205 needs PICC and Rocephin 2000mg daily for [address] Brown, will send for IV med script will be sent today and await approval from and home infusion company [employer] has accepted, still waiting on final readiness from [facility] infusion Normal [facility] Comment on above: Result Comment: Elec tronically Signed By: Elba Guo\.br\Date and Time Signed: 01/28/24 16:05 EDT Monitor Recordon 01-28-2024 Monitor Record [id number]#1. 00TIFF [facility] Monitor Record [id number]#1. 00TIFF [facility] Progress Note-Physicianon Progress Note-Physician Assessment/Plan Prostatitis [...] 0 Hospital Discharge Day > 30 Min 15689 PSA Total PSA Total PSA Total PSA Total PSA Total PSA Total Sbsq Hospital Care/Day Moderate 35 Minutes 08158 Sepsis (A41.9: Sepsis, unspecified organism) 2/2 above [...] Administration of drug, Saline, Heparin), 0 Normal [facility] Comment on above: Result Comment: Elec tronically Signed By: Rod Brown DO\.br\Date and Time Signed: 01/28/24 15:45 EDT XR [...] = na DAP = na Normal [facility] C Urineon 01-27-2024 Bacteria identified Cx Nom (U) Microbiology PROCEDURE: Urine Culture [R1] SOURCE: U CleanCatch BODY SITE: COLLECTED DATE/TIME: 01/25/2024 14:05 EST RECEIVED DATE/TIME: 01/25/2024 15:07 EST START DATE/TIME: 01/25/2024 15:08 EST FREE TEXT SOURCE: Ines HONG, Jaden Chacon PA-C, Jaden FINAL [...] Locations R1: This test was performed at: [facility], [address] [place] [address], [id number]- , , Normal [facility] Comment on above: Performed By: #### 2 [id number] #### [facility] [address] [place] [address]274 CBC w/ Auto Diffon 4 Basophils/100 WBC (Bld) 0.2 % Normal 0.0-2.0 [facility] Comment on above: Performed By: #### 2 081565 #### [facility] [address] [place] [address] Basophils/Leukocytes Auto (Bld) [Pure # fraction] 0.0 E9/L Normal 0.0-0.2 [facility] Comment on above: Performed By: #### 2 208120 #### [facility] [address] [place] [address]121 Eosinophils (Bld) [#/Vol] 0.1 E9/L Normal 0.0-0.5 [facility] Comment on above: Performed By: #### 2 042381 #### [facility] [address] [place] [address] Eosinophils/100 WBC (Bld) 1.0 % Normal 0.0-8.0 [facility] Comment on above: Performed By: #### 2 203539 #### [facility] [address] [place] [address] Erythrocyte distribution width (RBC) [Ratio] 12.8 % Normal 10.9-14.2 [facility] Comment on above: Performed By: #### 2 257546 #### [facility] [address] [place] [address] Hematocrit (Bld) [Volume fraction] 39.9 % Normal 37.7-49.0 [facility] Comment on above: Performed By: #### 2 096571 #### [facility] [address] [place] [address] Hemoglobin (Bld) [Mass/Vol] 13.3 g/dL Low 13.5-17.5 [facility] Comment on above: Performed By: #### 2 536608 #### [facility] [address] [place] [address] Lymphocytes (Bld) [#/Vol] 0.9 E9/L Low 1.0-4.0 [facility] Comment on above: Performed By: #### 2 699147 #### [facility] [address] [place] [address] Lymphocytes/100 WBC (Bld) 7.8 % Low 14.0-50.0 [facility] Comment on above: Performed By: #### 2 719487 #### [facility] [address] [place] [address] MCH (RBC) [Entitic mass] 31.0 pg Normal 27.0-34.0 [facility] Comment on above: Performed By: #### 2 912850 #### [facility] [address] [place] [address] MCHC (RBC) [Mass/Vol] 33.4 g/dL Normal 31.4-36.0 [facility] Comment on above: Performed By: #### 2 705892 #### [facility] [address] [place] [address] MCV (RBC) [Entitic vol] 92.9 fL Normal 80.0-100.0 [facility] Comment on above: Performed By: #### 2 777580 #### [facility] [address] [place] [address] Monocytes (Bld) [#/Vol] 1.0 E9/L Normal 0.2-1.0 [facility] Comment on above: Performed By: #### 2 760053 #### [facility] [address] [place] [address] Neutrophils (Bld) [#/Vol] 9.3 E9/L High 2.0-7.5 [facility] Comment on above: Performed By: #### 2 133411 #### [facility] [address] [place] [address] Neutrophils/100 WBC (Bld) 82.2 % High 36.0-75.0 [facility] Comment on above: Performed By: #### 2 924905 #### [facility] [address] [place] [address] Platelet 121.0 E9/L Low 150.0-500.0 [facility] Comment on above: Performed By: #### 2 536391 #### [facility] [address] [place] [address] Platelet mean volume (Bld) [Entitic vol] 8.2 fL Normal 6.4-10.8 [facility] Comment on above: Performed By: #### 2 763917 #### [facility] [address] [place] [address] RBC (Bld) [#/Vol] 4.3 E12/L Normal 4.3-5.9 [facility] Comment on above: Performed By: #### 2 976983 #### [facility] [address] [place] [address] WBC corrected for nucl RBC Auto (Bld) [#/Vol] 11.3 E9/L High 4.0-11.0 [facility] Comment on above: Performed By: #### 2 587771 #### [facility] [address] [place] [address] HEMATOLOGYOrdered By: SYSTEM SYSTEM on 01-27-2024 Basophils/100 [...] Remisol Heme Monitor Recordon 01-27-2024 Monitor Record [id number]#1. 00TIFF Normal [facility] Monitor Record [id number] 30 [id number]#1. 00TIFF Normal [facility] Monitor Record [id number]#1. 00TIFF Normal [facility] Monitor Record [id number] 30 [id number]#1. 00TIFF Normal [facility] Progress Note - Pharmacyon 0 01-27-2024 Progress Note - Pharmacy Vancomycin Phar nico to Dose Consult Note 1. Vanco Status: Vancomycin therapy has been discontinued. Vancomycin level(s) have been discontinued: Pharmacy vancomycin dosing service will sign off. Thank you for allowing us to participate in this patient's care. Please contact pharmacy if there are questions. Normal [facility] Progress Note-Physicianon Progress Note-Physician Basic Informatio [...] Lymph Auto: 7.8 % Low (01/27/24 06:57:00) Miner Auto: 8.8 % (01/27/24 06:57:00) Eos Auto: 1 % (01/27/24 06:57:00) Basophil Auto: 0.2 % (01/27/24 06:57:00) Neutro Absolute: 9.3 E9/L High (01/27/24 06:57:00) Lymph Absolute: 0.9 E9/L Low (01/27/24 06:57:00) Miner Absolute: 1 E9/L (01/27/24 06:57:00) Eos Absolute: [...] 20 mg= 1 tab(s), Oral, Daily Normal [facility] Comment on above: Result Comment: Elec tronically Signed By: Christie LEVIN, Louisa\.br\Date and Time Signed: 01/27/24 11:17 EDT BMPon 01-26-2024 Anion gap [Moles/Vol] 12 mmol/L Normal 6-16 [facility] Comment on above: Performed By: #### 1 6973041, 6829026, 3363003, 97831369, 27332125, 4679081, 8465552, 3967057 #### [facility] [address] [place] [address] Calcium [Mass/Vol] 9.2 mg/dL Normal 8.9-11.1 [facility] Comment on above: Performed By: #### 1 6559746, 4095821, 6461648, 54433847, 96213551, 5763137, 3898632, 9280581 #### [facility] [address] [place] [address] Chloride [Moles/Vol] 104 mmol/L Normal 101-111 [facility] Comment on above: Performed By: #### 1 2914620, 2814451, 0275484, 20137940, 16691568, 5095549, 4249066, 9080172 #### [facility] [address] [place] [address] CO2 [Moles/Vol] 27 mmol/L Normal 21-31 [facility] Comment on above: Performed By: #### 1 5963829, 5142180, 5848145, 14069620, 80226695, 7022022, 3627927, 8864569 #### [facility] [address] [place] [address] Creatinine [Mass/Vol] 0.9 mg/dL Normal 0.5-1.3 [facility] Comment on above: Performed By: #### 1 2479704, 6395063, 0779214, 53178702, 58680138, 4155402, 9445395, 4931738 #### [facility] [address] [place] [address] Glucose [Mass/Vol] 100 mg/dL Normal 55-199 [facility] Comment on above: Performed By: #### 1 7109346, 0511218, 4112991, 75333965, 37307029, 4990150, 9718796, 2006108 #### [facility] [address] [place] [address] Potassium [Moles/Vol] 4.0 mmol/L Normal 3.5-5.3 [facility] Comment on above: Performed By: #### 1 0991520, 0796017, 6995100, 74763879, 38100219, 4048961, 1231525, 7584983 #### [facility] [address] [place] [address] Sodium [Moles/Vol] 139 mmol/L Normal 135-145 [facility] Comment on above: Performed By: #### 1 3101804, 9789657, 1043642, 23013350, 65493378, 3909607, 8378044, 1034835 #### [facility] [address] [place] [address] Urea nitrogen [Mass/Vol] 12 mg/dL Normal 5-21 [facility] Comment on above: Performed By: #### 1 1071049, 2158349, 4067732, 00930467, 86833404, 2720852, 2467600, 1057798 #### [facility] [address] [place] [address] Urea nitrogen/Creatinine [Mass ratio] 13 No Units Normal 10-20 [facility] Comment on above: Performed By: #### 1 9419628, 8988095, 1132933, 39505263, 31201561, 9633037, 3947229, 5343209 #### [facility] [address] [place] [address] CBC w/ Auto Diffon 4 Basophils/100 WBC (Bld) 0.1 % Normal 0.0-2.0 [facility] Comment on above: Performed By: #### 1 2694464, 8038546, 2826696, 84372950, 52475390, 8403297, 3022196, 1441836 #### [facility] [address] [place] [address] Basophils/Leukocytes Auto (Bld) [Pure # fraction] 0.0 E9/L Normal 0.0-0.2 [facility] Comment on above: Performed By: #### 1 8668791, 1335515, 9170880, 73206545, 21244913, 9946562, 3748160, 7411885 #### [facility] [address] [place] [address] Eosinophils (Bld) [#/Vol] 0.0 E9/L Normal 0.0-0.5 [facility] Comment on above: Performed By: #### 1 5999912, 1143995, 0127429, 36021504, 34779755, 5429739, 0911470, 2600705 #### [facility] [address] [place], [place] [address] Eosinophils/100 WBC (Bld) 0.3 % Normal 0.0-8.0 [facility] Comment on above: Performed By: #### 1 2752906, 4425999, 9635899, 41374490, 73861509, 9137379, 7230812, 9924215 #### [facility] [address] [place] [address] Erythrocyte distribution width (RBC) [Ratio] 12.9 % Normal 10.9-14.2 [facility] Comment on above: Performed By: #### 1 7417891, 4653536, 8354626, 41387985, 99548720, 7594084, 9732133, 9443075 #### [facility] [address] [place] [address] Hematocrit (Bld) [Volume fraction] 43.0 % Normal 37.7-49.0 [facility] Comment on above: Performed By: #### 1 2357366, 8621172, 9280317, 11148621, 55327457, 7692161, 9113932, 2204068 #### [facility] [address] [place] [address] Hemoglobin (Bld) [Mass/Vol] 14.3 g/dL Normal 13.5-17.5 [facility] Comment on above: Performed By: #### 1 6827084, 8507796, 7560189, 53484645, 37862136, 1997436, 5931718, 7709767 #### [facility] [address] [place] [address] Lymphocytes (Bld) [#/Vol] 1.3 E9/L Normal 1.0-4.0 [facility] Comment on above: Performed By: #### 1 2595395, 3039876, 0077518, 43646166, 06199341, 4390668, 3544833, 7620911 #### [facility] [address] [place] [address] Lymphocytes/100 WBC (Bld) 8.0 % Low 14.0-50.0 [facility] Comment on above: Performed By: #### 1 0816669, 7512109, 7980244, 57212162, 30093863, 4365736, 0357553, 9136671 #### [facility] [address] [place] [address] MCH (RBC) [Entitic mass] 31.0 pg Normal 27.0-34.0 [facility] Comment on above: Performed By: #### 1 6272510, 2270667, 5295739, 33597508, 12298188, 4398851, 1537867, 8243267 #### [facility] [address] [place] [address] MCHC (RBC) [Mass/Vol] 33.3 g/dL Normal 31.4-36.0 [facility] Comment on above: Performed By: #### 1 3305859, 4472120, 8903191, 32280597, 42837100, 8111669, 7792168, 4566611 #### [facility] [address] [place] [address] MCV (RBC) [Entitic vol] 93.1 fL Normal 80.0-100.0 [facility] Comment on above: Performed By: #### 1 5004608, 7015392, 4092605, 34516196, 08959064, 2942277, 1387820, 3758391 #### [facility] [address] [place] [address] Monocytes (Bld) [#/Vol] 1.2 E9/L High 0.2-1.0 [facility] Comment on above: Performed By: #### 1 5119306, 8552489, 4335823, 95303938, 64310050, 6138785, 8132027, 6512912 #### [facility] [address] [place] [address] Neutrophils (Bld) [#/Vol] 13.6 E9/L High 2.0-7.5 [facility] Comment on above: Performed By: #### 1 2906814, 3735966, 1251217, 77823765, 79567821, 3175648, 6558995, 4866676 #### [facility] [address] [place] [address] Neutrophils/100 WBC (Bld) 84.4 % High 36.0-75.0 [facility] Comment on above: Performed By: #### 1 8187182, 9171758, 4630207, 86783035, 73480111, 6382236, 9725074, 1709492 #### [facility] [address] [place] [address] Platelet 140.0 E9/L Low 150.0-500.0 [facility] Comment on above: Performed By: #### 1 1330704, 2329928, 2099194, 03892969, 42350619, 6750631, 1330724, 1318071 #### [facility] [address] [place] [address] Platelet mean volume (Bld) [Entitic vol] 8.3 fL Normal 6.4-10.8 [facility] Comment on above: Performed By: #### 1 2138136, 8312571, 2603011, 98437010, 78736174, 8985934, 9447182, 2442100 #### [facility] [address] [place] [address] RBC (Bld) [#/Vol] 4.6 E12/L Normal 4.3-5.9 [facility] Comment on above: Performed By: #### 1 5604656, 6690254, 7516216, 24975910, 94682580, 6591383, 4239148, 7898422 #### [facility] [address] [place] [address] WBC corrected for nucl RBC Auto (Bld) [#/Vol] 16.1 E9/L High 4.0-11.0 [facility] Comment on above: Result Comment: Slid e review performed Performed By: #### 1 8030558, 1571210, 8729486, 66879323, 98683713, 0525538, 9562145, 6908333 #### [facility] [address] [place] [address] CHEMISTRYOrdered By: SYSTEM SYSTEM on 01-26-2024 Anion [...] Number and Complexity of Problems Differential Diagnosis: MDM Data External documents reviewed: [] My EKG [...] 1000 mL 1,000 mL, 1000 mL, IV [id number] [F] 1000 mg + GenDil 100 mL, [...] Prescription List (more content not included)... Normal [facility] Comment on above: Result Comment: Elec tronically Signed By: Daniel Espinoza PA-C\.br\Date and Time Signed: 01/25/24 22:52 EST\.br\Electronically Co-Signed By: Scotty Martinez DO\.br\Date and Time Co-Signed: 01/26/24 07:39 EST HEMATOLOGYOrdered [...] Jadon watters review performed Insurance Correspondence Off 01-26-2024 Insurance Correspondence Office [id number]#1. 00TIFF Normal [facility] Magnesiumon 01-26-2024 Magnesium [Mass/Vol] 1.8 mg/dL Normal 1.3-2.4 [facility] Comment on above: Performed By: #### 1 6250118, 7005450, 5837946, 80558035, 29165654, 0581428, 4544924, 5382461 #### [facility] [address] [place] [address] Monitor Recordon 01-26-2024 Monitor Record [id number]. 00TIFF Normal [facility] Monitor Record [id number]#1. 00TIFF Normal [facility] Progress Note-Physicianon Progress Note-Physician Basic Informatio [...] Lymph Auto: 8 % Low (01/26/24 06:23:00) Miner Auto: 7.2 % (01/26/24 06:23:00) Eos Auto: 0.3 % (01/26/24 06:23:00) Basophil Auto: 0.1 % (01/26/24 06:23:00) Neutro Absolute: 13.6 E9/L High (01/26/24 06:23:00) Lymph Absolute: 1.3 E9/L (01/26/24 06:23:00) Miner Absolute: 1.2 E9/L High (01/26/24 06:23:00) Eos [...] 40 mg (more content not included)... Normal [facility] Comment on above: Result Comment: Elec tronically Signed By: Christie LEVIN, Louisa\.br\Date and Time Signed: 01/26/24 11:09 EST eGFRon 01-26-2024 eGFR 100 mL/min/1.73 m2 Normal >=59 [facility] Comment on above: Order Comment: Order added by Discern Expert. Performed By: #### 1 0763479, 2135183, 0151384, 76201107, 63368701, 6496039, 8865170, 3447942 #### [facility] [address] [place] [address] AMPICILLIN:SUSC:PT:ISOLATE:O RDQN:MICOrdered By: Maryjo Ventura on 01-25-2024 Ampicillin EUGENE [Susc] Escherichia coli In 1 of 2 blood culture bottles drawn. Isolated from aerobic bottle Preliminary gram stain result of gram negative rods given to Dr. Soriano 01/26/2024 10:57:52 by [facility] AMPICILLIN:SUSC:PT:ISOLATE:O RDQN:MICOrdered By: Tammy Krishna on 01-25-2024 Ampicillin EUGENE [Susc] >100,000 cfu/ml Escherichia coli [facility] Ampicillin EUGENE [Susc]Ordered By: Maryjo Ventura on 01-25-2024 Escherichia coli Escherichia coli [facility] Ampicillin EUGENE [Susc]Ordered By: Tammy Krishna on 01-25-2024 Escherichia coli Escherichia coli [facility] BMPon 01-25-2024 Anion gap [Moles/Vol] 13 mmol/L Normal 6-16 [facility] Comment on above: Performed By: #### 1 0076627, 4434996, 1955219, 83205089, 15302877, 3668467, 9184547, 6914046 #### [facility] [address] [place] [address] Calcium [Mass/Vol] 9.8 mg/dL Normal 8.9-11.1 [facility] Comment on above: Performed By: #### 1 9354219, 8581597, 2202936, 19499943, 92918038, 5693671, 7235712, 5682759 #### [facility] [address] [place] [address] Chloride [Moles/Vol] 100 mmol/L Low 101-111 [facility] Comment on above: Performed By: #### 1 4816817, 4360334, 8652602, 00805609, 42786638, 1557251, 6766207, 9397223 #### [facility] [address] [place] [address] CO2 [Moles/Vol] 28 mmol/L Normal 21-31 [facility] Comment on above: Performed By: #### 1 3697757, 8530954, 3152024, 71130562, 66772692, 3627896, 3344221, 7752243 #### [facility] [address] [place] [address] Creatinine [Mass/Vol] 0.9 mg/dL Normal 0.5-1.3 [facility] Comment on above: Performed By: #### 1 9234364, 5140282, 4970375, 98417534, 96941642, 5011689, 1455907, 1823255 #### [facility] [address] [place] [address] Glucose [Mass/Vol] 95 mg/dL Normal 55-199 [facility] Comment on above: Performed By: #### 1 6242289, 7706992, 7959384, 78396566, 78781343, 7134178, 1078008, 8346062 #### [facility] [address] [place] [address] Potassium [Moles/Vol] 3.9 mmol/L Normal 3.5-5.3 [facility] Comment on above: Performed By: #### 1 0236637, 1426205, 1177336, 27723177, 82191529, 1205368, 5264254, 0813144 #### [facility] [address] [place] [address] Sodium [Moles/Vol] 137 mmol/L Normal 135-145 [facility] Comment on above: Performed By: #### 1 8865603, 5293674, 1315334, 68029208, 39337027, 6019429, 7186369, 8167380 #### [facility] [address] [place] [address] Urea nitrogen [Mass/Vol] 17 mg/dL Normal 5-21 [facility] Comment on above: Performed By: #### 1 7310496, 3155405, 3869232, 94316269, 75797171, 8413708, 6533076, 6834486 #### [facility] [address] [place] [address] Urea nitrogen/Creatinine [Mass ratio] 19 No Units Normal 10-20 [facility] Comment on above: Performed By: #### 1 8714382, 8337985, 2659616, 51019959, 00052723, 7647833, 8515208, 9315133 #### [facility] [address] [place] [address] CBC w/ Auto Diffon 4 Basophils/100 WBC (Bld) 0.1 % Normal 0.0-2.0 [facility] Comment on above: Performed By: #### 1 5456288, 2339707, 2563297, 81772989, 60655075, 9226309, 8840016, 9593215 #### [facility] [address] [place] [address] Basophils/Leukocytes Auto (Bld) [Pure # fraction] 0.0 E9/L Normal 0.0-0.2 [facility] Comment on above: Performed By: #### 1 7179011, 9845361, 6603785, 48708432, 86315201, 0614606, 5349522, 7611852 #### [facility] [address] [place] [address] Eosinophils (Bld) [#/Vol] 0.0 E9/L Normal 0.0-0.5 [facility] Comment on above: Performed By: #### 1 2294940, 8787296, 1213627, 72244758, 87614382, 8458509, 9476937, 9160168 #### [facility] [address] [place] [address] Eosinophils/100 WBC (Bld) 0.2 % Normal 0.0-8.0 [facility] Comment on above: Performed By: #### 1 6204592, 3451721, 3591004, 21095162, 75220627, 5990663, 2465218, 7746132 #### [facility] [address] [place] [address] Lymphocytes (Bld) [#/Vol] 0.8 E9/L Low 1.0-4.0 [facility] Comment on above: Performed By: #### 1 0012247, 5215360, 6402040, 09378702, 16191268, 3792614, 6061990, 7443317 #### [facility] [address] [place] [address] Lymphocytes/100 WBC (Bld) 5.0 % Low 14.0-50.0 [facility] Comment on above: Performed By: #### 1 6538702, 1165459, 1164543, 28934036, 07281397, 0219359, 2769775, 7320805 #### [facility] [address] [place] [address] Monocytes (Bld) [#/Vol] 1.1 E9/L High 0.2-1.0 [facility] Comment on above: Performed By: #### 1 7029161, 6937761, 8057563, 88034008, 18357131, 0831466, 0760410, 6628536 #### [facility] [address] [place] [address] Neutrophils (Bld) [#/Vol] 13.8 E9/L High 2.0-7.5 [facility] Comment on above: Performed By: #### 1 4834420, 6645115, 2490525, 38631192, 62180040, 1994256, 6385925, 4793109 #### [facility] [address] [place] [address] Neutrophils/100 WBC (Bld) 87.9 % High 36.0-75.0 [facility] Comment on above: Performed By: #### 1 9297994, 7594796, 2257087, 51271887, 77545131, 0358395, 3289976, 4711197 #### [facility] [address] [place] [address] Erythrocyte distribution width (RBC) [Ratio] 12.8 % Normal 10.9-14.2 [facility] Comment on above: Performed By: #### 1 4817251, 4764558, 3942662, 01527911, 65576598, 0651877, 6020662, 6506210 #### [facility] [address] [place] [address] Hematocrit (Bld) [Volume fraction] 42.9 % Normal 37.7-49.0 [facility] Comment on above: Performed By: #### 1 5488308, 5096269, 6052553, 65354142, 24871098, 4053621, 9550599, 0526318 #### [facility] [address] [place] [address] Hemoglobin (Bld) [Mass/Vol] 14.6 g/dL Normal 13.5-17.5 [facility] Comment on above: Performed By: #### 1 9026819, 2951794, 4253440, 45259663, 77399116, 5118923, 0977465, 0660507 #### [facility] [address] [place] [address] MCH (RBC) [Entitic mass] 31.6 pg Normal 27.0-34.0 [facility] Comment on above: Performed By: #### 1 7754878, 3573980, 0993619, 87363159, 20208418, 8348231, 2031034, 7971779 #### [facility] [address] [place] [address] MCHC (RBC) [Mass/Vol] 34.0 g/dL Normal 31.4-36.0 [facility] Comment on above: Performed By: #### 1 [id number], 9363149, 8171920, 18570877, 63840161, 7894542, 5781187, 6703760 #### [facility] [address] [place] [address] MCV (RBC) [Entitic vol] 92.8 fL Normal 80.0-100.0 [facility] Comment on above: Performed By: #### 1 0849581, 6900435, 8658778, 77684405, 85933885, 6975542, 3665284, 2572402 #### [facility] [address] [place] [address] Platelet mean volume (Bld) [Entitic vol] 8.6 fL Normal 6.4-10.8 [facility] Comment on above: Performed By: #### 1 9512574, 2337990, 3469941, 29740547, 87717611, 5070199, 7867680, 1490205 #### [facility] [address] [place], [place] [address] Platelets (Bld) [#/Vol] 143.0 E9/L Low 150.0-500.0 [facility] Comment on above: Performed By: #### 1 0928852, 2185379, 8218873, 13767228, 85034131, 5054051, 6443839, 2148899 #### [facility] [address] [place] [address] RBC (Bld) [#/Vol] 4.6 E12/L Normal 4.3-5.9 [facility] Comment on above: Performed By: #### 1 3081503, 5210396, 4092866, 79046004, 72980728, 9807169, 6229357, 4718711 #### [facility] [address] [place] [address] WBC corrected for nucl RBC Auto (Bld) [#/Vol] 15.7 E9/L High 4.0-11.0 [facility] Comment on above: Performed By: #### 1 5326041, 6731350, 4523642, 02790216, 25446518, 7821907, 7919930, 6451688 #### [facility] [address] [place] [address] CHEMISTRYOrdered By: SYSTEM SYSTEM on 01-25-2024 Lactic [...] methods and specificity. Values obtained with different adult caregiver's assays cannot be used interchangeably. The methodology used to obtain this result was chemiluminescence using Abby Baudilio's Access Hybritech PSA reagent and Access Hybritech [...] for this result was chemiluminescence using Abby viVood's Access Hybritech PSA reagent. Protein [Mass/Vol] 7.0 [...] High Sensitivity Troponin I Instructions For Use, [employer] June 2018) CMPon 01-25-2024 Albumin [Mass/Vol] 4.6 g/dL Normal 3.3-5.0 [facility] Comment on above: Performed By: #### 1 9056071, 7465450, 8463765, 33438159, 94974892, 6973004, 2960434, 6301867 #### [facility] [address] [place] [address] Albumin/Globulin (S) [Mass conc ratio] 1.9 Normal 1.1-2.2 [facility] Comment on above: Performed By: #### 1 0666500, 0933920, 5156405, 66634626, 79097006, 2879535, 2344627, 7975359 #### [facility] [address] [place] [address] ALP [Catalytic activity/Vol] 55 Int._Unit/L Normal 21-98 [facility] Comment on above: Performed By: #### 1 7099590, 1248397, 0058404, 58361833, 45385793, 8464921, 3433275, 7465455 #### [facility] [address] [place] [address] ALT No additional P-5'-P [Catalytic activity/Vol] 21 Int._Unit/L Normal 6-46 [facility] Comment on above: Performed By: #### 1 8776454, 3606443, 3247199, 86661715, 15619968, 5785333, 1703645, 6046707 #### [facility] [address] [place] [address] AST [Catalytic activity/Vol] 18 Int._Unit/L Normal 5-43 [facility] Comment on above: Performed By: #### 1 9539764, 3563866, 7161486, 70123967, 12374820, 0680116, 8866288, 7178676 #### [facility] [address] [place] [address] Bilirubin [Mass/Vol] 0.9 mg/dL Normal 0.0-1.1 [facility] Comment on above: Performed By: #### 1 6572663, 7797638, 8304916, 07615612, 64618721, 7349956, 3629979, 7048097 #### [facility] [address] [place] [address] Globulin (S) [Mass/Vol] 2.4 g/dL Normal 1.4-4.0 [facility] Comment on above: Performed By: #### 1 2537690, 1606603, 0430107, 38182038, 61100367, 6397500, 8055634, 5436908 #### [facility] [address] [place] [address] Protein [Mass/Vol] 7.0 g/dL Normal 6.0-7.8 [facility] Comment on above: Performed By: #### 1 3259538, 8611647, 2613102, 92088788, 72671479, 8346792, 6365407, 1012983 #### [facility] [address] [place] [address] COAGULATIONOrdered By: Leticia King on 01-25-2024 aPTT Coag (PPP) [Time] 30.5 s Normal 25.1 - 36.5 second(s) [facility] Comment on above: Interpretive Data: Ricky letty 15 days - 4 weeks 1 - 5 months 6 - 11 months 1 - 5 years 6 - 10 years 11 - 17 years PTT Mean: 35.4 (27.6-45.6) Mean: 33.5 (24.8-40.7) Mean: 32.4 (25.1-40.7) Mean: 31.6 (24.0-39.2) Mean: 31.6 (26.9-38.7) Mean: 31.0 (24.6-38.4) Pediatric Reference ranges were obtained from a study by joan Jennings prepared from 1437 samples obtained at 7 different centers using the same coagulation reagent and instrumentation as [facility]. Currently there are no coagulation studies available worldwide for children to 14 days, and no normal ranges. Heparin therapeutic range (represented by Anti-Factor Xa activity of 0.2 - 0.4 U/mL) corresponds to PTT of 56.6 - 109.0 sec. INR Coag (PPP) [Relative time] 1.01 {INR} Invalid Interpretation Code [facility] Comment on above: Interpretive Data: I NR results are specifically intended to assess patients stabilized on long-term Anticoagulation therapy suggested INR s Less Intensive Anticoagulation 2.0 3.0 Conventional Range 3.0 4.5 PT Coag (PPP) [Time] 11.3 s Normal 9.4 - 1 2.5 second(s) [facility] Comment on above: Interpretive Data: 1 5 days - 4 weeks 1 - 5 months 6 -11 months 1 5 years 6 10 years 11 -17 years Mean: 11.2 (9.5 12.6) Mean: 11.0 (9.7 12.8) Mean: 11.0 (9.8 13.0) Mean: 11.3 (9.9 13.4) Mean: 11.7 (10.0 14.6) Mean: 11.8 (10.0 - 14.1) Pediatric Reference ranges were obtained from a study by joan Jennings prepared from 1437 samples obtained at 7 different centers using the same coagulation reagent and instrumentation as [facility]. Currently there are no coagulation studies available [...] 370 Contrast amount in ml's: 100 Normal [facility] Consent for Treatmenton Consent for Treatment [id number] 4030 [id number] 0TIFF Normal [facility] Consent for Treatment [id number] 4030 [id number] 0TIFF Normal [facility] ED Clinical Summaryon 2023 ED Clinical Summary [place] [address] ED Clinical Summary Person Information Name: STEVE WILLIAMSON Shayna/[facility] Age: 59 Years : 1965 Sex: Male Language: Dominican PCP: DELPHINE BERRY NP Marital Status: Visit Id: Visit Reason: [id number] -BURNING W/URINATION Speciality: Acuity: 3 Enc Type: Inpatient Med Service: Emergency Arrival: 01/25/2024 13:32:51 Discharge: LOS: 000 08:29 Checkin: 01/25/2024 13:32:51 Checkout: 01/25/2024 22:01:01 Dispo Type: Admitted as IP to this [facility] EVENTS: Event Name Event Status Request Date/Time [...] 01/25/2024 20:18:48 01/25/2024 20:18:48 01/25/2024 20:18:48 ADDRESS: [address] [place] [id number] PHYS DOC NOTES: MEDICAL INFORMATION: Prescriptions Given: [...] Prostatitis; Sepsis; UTI (urinary tract infection) Normal [facility] ED Patient Education Noteon 01-25-2024 ED Patient Education Note Normal [facility] ED Patient Summaryon 024 ED Patient Summary [place] [id number] Patient Discharge Instructions Person Information Name: STEVE WILLIAMSON Age: 59 Years Arrival Date: 01/25/2024 13:32:51 Discharge Diagnosis: Prostatitis; Sepsis; UTI (urinary tract infection) Primary Care Physician: DELPHINE BERRY NP Provider Information Primary Provider: Scotty Martinez DO Advanced Irrigator Overhead:None The exam and treatment you received in the Emergency Department were for an urgent problem and are not intended as complete care. It is important that you follow up with a doctor, nurse practitioner, or physician?s equal opportunity assistant for ongoing care. If your symptoms [...] opioids can be used to help relieve fnxosfsy-po-ttzwjg pain and are often prescribed following a [...] be struggling with addiction, tell your health pharmacist critical care and ask for guidance or call [facility]?[employer] National Helpline at 1-007-636-NQGQ. v Source: US Department of Health and Human Services/Center for Disease Control & Prevention [facility] Medications Given: Medi (more content not included)... Normal [facility] - Chemistry and C hemistry [...] Lactic Acid Lvl 1.5 mmol/L Normal 0.5-2.2 [facility] Comment on above: Performed By: #### 1 7278080, 8293732, 3708753, 52614811, 54642422, 3297978, 1997702, 2271343 #### [facility] [address] [place] [address] Lactic Acid Lvl 1.8 mmol/L Normal 0.5-2.2 [facility] Comment on above: Performed By: #### 1 8491883, 8377308, 9155358, 82597947, 52033938, 3084229, 9051272, 5844959 #### [facility] [address] [place] [address] No Panel InformationOrdered By: [facility] MICRO[facility]OLOG[facility] on 01-25-2024 Blood Culture Charcoal No growth at 4 da ys. Final to follow at 7 days. [facility] PSA Free & Totalon Free PSA/Total PSA [Mass fraction] 25.5 % Normal >=25.0 [facility] Comment on above: Performed By: #### 1 1261346, 8453940, 8508555, 45341365, 18841338, 2278797, 9306411, 0624837 ####[facility] [place] [address] Prostate specific Ag [Mass/Vol] 15.3 ng/mL High 0.1-3.5 [facility] Comment on above: Result Comment: The concentration of PSA determined by different manufacturers can vary due to differences in assay methods and reagent specificity. Values obtained from different assay methods cannot be used interchangeably. The methodology used for this result was chemiluminescence using [employer]s Access Hybritech PSA reagent. Performed By: #### 1 1448513, 3343149, 8674532, 76542058, 38299530, 9138738, 7791141, 0330481 ####[facility] [address] [place] [address] Free PSA [Mass/Vol] 3.9 ng/mL Invalid Interpretation Code [facility] Comment on above: Result Comment: The concentration of free PSA and total PSA determined with assays from different manufacturers can vary due to differences in assay methods and specificity. Values obtained with different adult caregiver's assays cannot be used interchangeably. The methodology used to obtain this result was chemiluminescence using Abby Baudilio's Access Hybritech PSA reagent and Access [employer] free PSA reagent. Performed By: #### 1 0828812, 1133581, 9068142, 74082829, 50023893, 4051233, 4070608, 6536903 ####[facility] [address] [place] [address] PT & PTTon 01-25-2024 aPTT Coag (PPP) [Time] 30.5 second(s) Normal 25.1-36.5 [facility] Comment on above: Result Comment: Para [...] the same coagulation reagent and instrumentation as [facility]. Currently there are no coagulation studies available worldwide for children to 14 days, and no normal ranges. Heparin therapeutic range (represented by Anti-Factor Xa activity of 0.2 - 0.4 U/mL) corresponds to PTT of 56.6 - 109.0 sec. Performed By: #### 1 6673798, 1082438, 5115301, 86381523, 89415968, 5420062, 8013499, 7658824 #### [facility] [address] [place] [address] INR Coag (PPP) [Relative time] 1.01 {INR} Invalid Interpretation Code [facility] Comment on above: Result Comment: INR results are specifically intended to assess patients stabilized on long-term Anticoagulation therapy suggested INR?s ?Less Intensive Anticoagulation? 2.0 ? 3.0 Conventional Range 3.0 ? 4.5 Performed By: #### 1 6381337, 9133041, 6459381, 38423279, 19312092, 5161281, 1290207, 1737106 #### [facility] [address] [place] [address] PT Coag (PPP) [Time] 11.3 second(s) Normal 9.4-12.5 [facility] Comment on above: Result Comment: 15 d [...] the same coagulation reagent and instrumentation as [facility]. Currently there are no coagulation studies available worldwide for children to 14 days, and no normal ranges. Performed By: #### 1 7837835, 9470863, 9259495, 11258713, 88015258, 6993696, 5608301, 2896335 #### [facility] [address] [place] [address] Progress Note - Pharmacyon 0 01-25-2024 Progress [...] questions please contact the pharmacy at extension [phone]. Age: 59 Years Allergies: penicillins Weight: Last [...] Lymph Auto: 5 % Low (01/25/24 14:51:00) Miner Auto: 6.8 % (01/25/24 14:51:00) Eos Auto: 0.2 % (01/25/24 14:51:00) Basophil Auto: 0.1 % (01/25/24 14:51:00) Neutro Absolute: 13.8 E9/L High (01/25/24 14:51:00) Lymph Absolute: 0.8 E9/L Low (01/25/24 14:51:00) Miner Absolute: 1.1 E9/L High (01/25/24 14:51:00) Eos [...] UA Bacteria: 1+ Abnormal (01/25/24 14:05:00) Normal [facility] Troponinon 01-25-2024 Troponin 5.00 pg/mL Low 15.90-38.40 [facility] Comment on above: Result Comment: The 95% CI (Confidence Interval) PPV (Positive Predictive Value) for myocardial infarction in females is 38 pg/mL, in males 51 pg/mL. The results should be used in conjunction with clinical conditions of myocardial infarction. (Access High Sensitivity Troponin I Instructions For Use, Abby Baudilio, June 2018) Performed By: #### 1 4562921, 9717386, 1108746, 67914483, 63808842, 5178979, 7464319, 1486020 #### [facility] [address] [place] [address] UA With Cult Reflexon 2023 Bacteria LM Ql (Urine sed) 1+ /HPF Abnormal Trace [facility] Comment on above: Performed By: #### 2 532538 #### [facility] [address] [place] [address] Bilirubin Ql (U) Negative Normal Negative [facility] Comment on above: Performed By: #### 2 578302 #### [facility] [address] [place] [address] Clarity (U) CLOUDY Abnormal Clear [facility] Comment on above: Performed By: #### 2 623052 #### [facility] [address] [place] [address] Color (U) STRAW Invalid Interpretation Code [facility] Comment on above: Performed By: #### 2 696164 #### [facility] [address] [place] [address] Epithelial cells.squamous LM.HPF (Urine sed) [#/Area] 0-2 Normal 0-2 [facility] Comment on above: Performed By: #### 2 248979 #### [facility] [address] [place] [address] Glucose Test strip (U) [Mass/Vol] Negative Normal Negative [facility] Comment on above: Performed By: #### 2 546609 #### [facility] [address] [place] [address] Hemoglobin Ql (U) 3+ Abnormal Negative [facility] Comment on above: Performed By: #### 2 054271 #### [facility] [address] [place] [address] Ketones (U) [Mass/Vol] Negative Normal Negative [facility] Comment on above: Performed By: #### 2 639455 #### [facility] [address] [place] [address] [place].plasma/[place].R BC (Bld) [Mass ratio] 21-30 Abnormal 0-3 [facility] Comment on above: Performed By: #### 2 022514 #### [facility] [address] [place] [address] Nitrite Ql (U) Negative Normal Negative [facility] Comment on above: Performed By: #### 2 268626 #### [facility] [address] [place] [address] pH (U) 6.0 [pH] Invalid Interpretation Code 5.0-9.0 [facility] Comment on above: Performed By: #### 2 168973 #### [facility] [address] [place] [address] Protein (U) [Mass/Vol] 1+ Abnormal Negative [facility] Comment on above: Performed By: #### 2 066317 #### [facility] [address] [place] [address] Specific gravity (U) [Rel density] <=1.005 Invalid Interpretation Code 1.005-1.030 [facility] Comment on above: Performed By: #### 2 629314 #### [facility] [address] [place] [address] Type of Urine collection method Clean Catch Normal [facility] Comment on above: Performed By: #### 2 829869 #### [facility] [address] [place] [address] Urobilinogen Qn (U) 0.2 {Kishan'U}/dL Normal 0.0-1.0 [facility] Comment on above: Performed By: #### 2 352844 #### [facility] [address] [place] [address] WBC Auto Ql (U) 3+ Abnormal Negative [facility] Comment on above: Performed By: #### 2 450997 #### [facility] [address] [place] [address] WBC LM.HPF (Urine sed) [#/Area] /[HPF] Abnormal 0-5 [facility] Comment on above: Performed By: #### 2 436845 #### [facility] [address] [place] [address] URINALYSISOrdered By: Lizzy Rice on 01-25-2024 Bacteria [...] PM) Normal Negative [facility] UA Auto SS [place].plasma/[place].R BC (Bld) [Mass ratio] 21-30 /HPF Invalid Interpretation Code 0-3/HPF [facility] UA Auto SS Nitrite Ql (U) Negative (01/25/24 2:05 PM) Normal Negative [facility] UA Auto SS pH (U) 6.0 *NA* (01/25/24 2:05 PM) Invalid Interpretation Code 5.0 - 9.0 [facility] UA Auto SS Protein (U) [Mass/Vol] 1+ *ABN* (01/25/24 2:05 PM) Invalid Interpretation Code Negative [facility] UA Auto SS Specific gravity (U) [Rel density] <=1.005 *NA* (01/25/24 2:05 PM) Invalid Interpretation Code 1.005 - 1.030 [facility] UA Auto SS UA Spec Desc Clean Catch (01/25/24 2:05 PM) Normal [facility] UA Auto SS Urobilinogen Qn (U) 0.5828438 {Kishan'U}/dL Normal 0.0 - 1.0 EU/dL [facility] UA Auto SS WBC Auto Ql (U) 3+ *ABN* (01/25/24 2:05 PM) Invalid Interpretation Code Negative [facility] UA Auto SS WBC LM.HPF (Urine sed) [#/Area] /[HPF] Invalid Interpretation Code 0-5/HPF [facility] UA Auto SS XR Chest Single Viewon 01-24 XR Chest Single View Exam Date/Time: 01/25/2024 14:59 EST Reason for Exam: Shortness of breath (SOB) Report [facility] [phone] IMPRESSION: There are no acute cardiopulmonary changes. [...] mGy = 0 DAP = 0 Normal [facility] eGFRon 01-25-2024 eGFR 100 mL/min/1.73 m2 Normal >=59 [facility] Comment on above: Order Comment: Order added by Discern Expert. Performed By: #### 1 [id number], 6022317, 2590401, 04599827, 72544078, 5885399, 9082611, 0660271 #### [facility] [address] [place] [address] Patient Educationon 01-18-20 Patient Education Infectious Disease Prostatitis Prostatitis is [...] these instructions at home: Medicines ? Take frfq-lff-okemisn and prescription medicines only as told by [...] Where to find more information ? National [place] of Diabetes and Digestive and Kidney Diseases: (more content not included)... Normal [facility] Urology Office/Clinic Noteon 01-18-2024 Urology Office/Clinic Note Chief Complaint S/P TRUS/Bx HPI Staff F/u to review path report from TRUS/bx 01/01/24. Previous dx: BPH with obstruction, elevated PSA. Patient presented to [facility] ER on 01/04/24 due to prostatitis, sepsis [...] the patient could understand. Pt presented to [facility] ER on 01/04/24 due to prostatitis, sepsis [...] Contact Information RICKY LEVIN, Nadir Mercado, URL [address] [place] [phone] Additional Instructions: 6 months Patient Education Prostatitis Anne Garica, personally scribed for Dr. García on 01/18/2024 11:45:57. . Documentation recorded by the scribe, Anne Nichols, accurately reflects the services(s) I performed and [...] guidance (01/01/2024), Colonoscopy (10/26/2023), Arthroscopy of knee ( (more content not included)... Normal [facility] Comment on above: Result Comment: Elec [...] and Complexity of Problems Differential Diagnosis: [] [facility] Data External documents reviewed: [] My [...] Acid PT & PTT Rapid COVID Antigen ([facility]) Troponin UA With Cult Reflex XR Chest Single View Medications Administered Given acetaminophen 325 mg Tab, 650 mg, Oral qprl420Kyl [F] 500 mg + Sodium Chloride 0.9% IV Kena 50 mL Minibag Plus [F] 50 mL, IV Piggyback NS 1000 ml Bolus, 1000 mL, IV Disposition Plan Patient Discharge Condition Stable Discharge Disposition To be admitted Discharge Prescription List Prescriptions No active prescription medications Follow-up No qualifying data available Attestation Patient seen and evaluated by the physician equal opportunity assistant. Attending physician was present in the emergency department and (more content not included)... Normal [facility] Comment on above: Result Comment: Elec tronically Signed By: Daniel Espinoza PA-C\.br\Date and Time Signed: 01/04/24 20:59 EST\.br\Electronically Co-Signed By: Sara Patel M.D.\.br\Date and Time Co-Signed: 01/12/24 07:20 EST Coding Queryon 01-10-2024 Coding Query - From: Teresa Rodriguez RN To: Louisa Soriano MD; Sent: 01/10/2024 15:10:07 EST ! Subject: Coding Query Due Date/Time: 01/11/2024 15:09:00 EST Caller Name: STEVE WILLIAMSON; Caller Number: H , B [phone] Documentation in the medical record indicates this patient developed an infection after the following surgical procedure: transrectal US and guided biopsy of the prostate on 01/01. The following is also documented in the medical record: H&P 1. Sepsis (A41.9: Sepsis, unspecified organism) 2/ prostatitis meets Sirs monitor temp had wbc [...] desired or expected. Thank you!teresa [phone] From: Louisa Soriano MD To: Teresa Rodriguez RN; Sent: 01/10/2024 16:54:11 EST Subject: RE: Coding Query Caller Name: STEVE WILLIAMSON; Caller Number: H , B [phone] Infection related to the procedure Normal [facility] Consent for Treatmenton 12-21 Consent for Treatment [id number] 0TIFF Normal [facility] Discharge Instructionson Discharge Instructions [id number] 0TIFF Normal [facility] ED Clinical Summaryon 2023 ED Clinical Summary [address] [address] ED Clinical Summary Person Information Name: STEVE WILLIAMSON Shayna/[facility] Age: 58 Years : 1965 Sex: Male Language: Dominican PCP: DELPHINE BERRY NP Marital Status: Visit [...] 01/10/2024 11:26:43 01/10/2024 11:26:43 01/10/2024 11:26:43 ADDRESS: [address] [place] [phone] PHYS DOC NOTES: MEDICAL INFORMATION: Prescriptions Given: New Medications [facility], [address], [place] [id number], [phone] cephalexin (Keflex 500 mg Cap) 1 Capsules [...] or worsening symptoms. DIAGNOSIS: Superficial thrombophlebitis Normal [facility] ED Note-Physicianon 01-10-20 ED Note-Physician Basic [...] extremity: Radial pulses intact. Sensation is intact. Glass Bender strength, finger abduction and adduction are intact. [...] day(s), # 28 cap(s), Refills(s) 0, Pharmacy: [facility], 178, cm, 01/10/24 10:05:00 EST, Height/Length Dosing, 82.6, kg, 01/10/24 10:05:00 EST, Weight Dosing Disposition Plan Patient Discharge Condition Stable Discharge Disposition Home Discharge Prescription List Prescriptions Keflex 500 mg Cap, 500 mg= 1 cap(s), Oral, QID Follow-up With When Contact Information DELPHINE ZIMMERMANXAVIHansa In 3 days 01/13/2024 EST Additional Instructions: [...] History Hyperlipi (more content not included)... Normal [facility] Comment on above: Result Comment: Elec [...] these instructions at home: Medicines ? Take xmbc-vul-pdttnit and prescription medicines only as told by [...] cigarettes, chew (more content not included)... Normal [facility] ED Patient Summaryon 024 ED Patient Summary [address] [address] Patient Discharge Instructions Person Information Name: STEVE WILLIAMSON Age: 58 Years Arrival Date: 01/10/2024 09:54:14 Discharge Diagnosis: Superficial thrombophlebitis Primary Care Physician: KRISTI MENA, [facility] Provider Information Primary Provider: Amauri Tran DO Advanced Irrigator Overhead:None The exam and treatment you received in the Emergency Department were for an urgent problem and are not intended as complete care. It is important that you follow up with a doctor, nurse practitioner, or physician?s equal opportunity assistant for ongoing care. If your symptoms become worse or you do not improve as expected and you are unable to reach your usual health care provider, you should return to the Emergency Department. We are available 24 hours a day. STEVE WILLIAMSON has been given the following list of patient education materials, prescriptions and follow-up instructions: Follow-up Instructions: With: Address: When: DELPHINE BERRY In 3 [...] opioids can be used to help relieve pluvuano-qf-hbtkzn pain and are often prescribed following a [...] ? Saf (more content not included)... Normal [facility] C Urineon 01-08-2024 Bacteria identified Cx Nom (U) Microbiology PROCEDURE: Urine Culture [R1] SOURCE: U CleanCatch BODY SITE: COLLECTED DATE/TIME: 01/04/2024 16:24 EST RECEIVED DATE/TIME: 01/06/2024 08:49 EST START DATE/TIME: 01/06/2024 08:49 EST FREE TEXT SOURCE: Rod Brown DO, DO, Rod Moraes FINAL REPORTS Final Report [] Verified Date/Time: 01/08/2024 07:02 EST No growth at 2 days. Performing Locations R1: This test was performed at: [facility], [address] [place] [address], [id number] , , Normal [facility] Comment on above: Performed By: #### 2 [id number] #### [facility] [address] [place] [address] Discharge Instructionson Discharge Instructions [id number] 0TIFF Normal [facility] Insurance Correspondence Off iceon 01-08-2024 Insurance Correspondence Office [id number]#1. 00TIFF Normal [facility] BMPon 01-07-2024 Anion gap [Moles/Vol] 11 mmol/L Normal 6-16 [facility] Comment on above: Performed By: #### 1 4423180, 7989136, 5651138, 03074701, 08688711, 5656190, 9043572, 3706937 #### [facility] [address] [place] [address] BUN/Creat Ratio 13 No Units Normal 10-20 [facility] Comment on above: Performed By: #### 1 1337098, 9840440, 7707702, 87969306, 57909766, 7992025, 1897139, 7024137 #### [facility] [address] [place] [address] Calcium [Mass/Vol] 9.0 mg/dL Normal 8.9-11.1 [facility] Comment on above: Performed By: #### 1 3977688, 4167983, 2157694, 91720841, 45002667, 6991562, 3950179, 9540062 #### [facility] [address] [place] [address] Chloride [Moles/Vol] 106 mmol/L Normal 101-111 [facility] Comment on above: Performed By: #### 1 7687287, 4439679, 4812931, 15071439, 15881430, 7483686, 6152846, 8015852 #### [facility] [address] [place] [address] CO2 [Moles/Vol] 28 mmol/L Normal 21-31 [facility] Comment on above: Performed By: #### 1 7478466, 5993053, 7863998, 54551443, 51694116, 0371795, 8570058, 4425069 #### [facility] [address] [place] [address] Creatinine [Mass/Vol] 0.9 mg/dL Normal 0.5-1.3 [facility] Comment on above: Performed By: #### 1 7477476, 9459999, 7816176, 23894816, 40305292, 5789882, 2325958, 8038875 #### [facility] [address] [place] [address] Glucose [Mass/Vol] 103 mg/dL Normal 55-199 [facility] Comment on above: Performed By: #### 1 8528535, 7292448, 2390299, 40625320, 01680493, 1059303, 0837597, 2979413 #### [facility] [address] [place] [address] Potassium [Moles/Vol] 3.6 mmol/L Normal 3.5-5.3 [facility] Comment on above: Performed By: #### 1 5952370, 2867609, 9041769, 49155100, 54790576, 8741435, 8646637, 8024347 #### [facility] [address] [place] [address] Sodium [Moles/Vol] 141 mmol/L Normal 135-145 [facility] Comment on above: Performed By: #### 1 4901656, 0287004, 5386437, 89749072, 08830317, 0519305, 6497513, 0911185 #### [facility] [address] [place] [address] Urea nitrogen [Mass/Vol] 12 mg/dL Normal 5-21 [facility] Comment on above: Performed By: #### 1 7660397, 8578062, 0866692, 77752012, 33110415, 6416688, 1213844, 2335371 #### [facility] [address] [place] [address] CBC w/ Auto Diffon 4 Basophil Absolute 0.0 E9/L Normal 0.0-0.2 [facility] Comment on above: Performed By: #### 1 3946141, 5900790, 9676003, 12911460, 77641526, 2896851, 0112694, 7495926 #### [facility] [address] [place] [address] Basophils/100 WBC (Bld) 0.5 % Normal 0.0-2.0 [facility] Comment on above: Performed By: #### 1 3960975, 8354579, 5264399, 11245618, 80843235, 5968304, 4808700, 4868338 #### [facility] [address] [place] [address] Eos Absolute 0.2 E9/L Normal 0.0-0.5 [facility] Comment on above: Performed By: #### 1 9517107, 8440512, 9951114, 81560470, 64246163, 9140559, 8301732, 4003728 #### [facility] [address] [place] [address] Eosinophils/100 WBC (Bld) 2.5 % Normal 0.0-8.0 [facility] Comment on above: Performed By: #### 1 8714725, 8341631, 4144883, 13439311, 09077626, 6387259, 9864099, 1158730 #### [facility] [address] [place] [address] Erythrocyte distribution width (RBC) [Ratio] 12.9 % Normal 10.9-14.2 [facility] Comment on above: Performed By: #### 1 7939462, 8995012, 6896343, 48802710, 04179040, 7920605, 3876489, 5984817 #### [facility] [address] [place] [address] Hematocrit (Bld) [Volume fraction] 40.0 % Normal 37.7-49.0 [facility] Comment on above: Performed By: #### 1 0699462, 2948173, 0939306, 08106598, 61579766, 7493351, 0218834, 3826535 #### [facility] [address] [place] [address] Hemoglobin (Bld) [Mass/Vol] 14.1 g/dL Normal 13.5-17.5 [facility] Comment on above: Performed By: #### 1 0864393, 9589449, 6554464, 22270518, 52188730, 3222739, 3969038, 2098699 #### [facility] [address] [place] [address] Lymph Absolute 1.2 E9/L Normal 1.0-4.0 [facility] Comment on above: Performed By: #### 1 6727774, 8757737, 1778017, 16819217, 50803384, 3468592, 0008976, 8777776 #### [facility] [address] [place], [place] [address] Lymphocytes/100 WBC (Bld) 18.4 % Normal 14.0-50.0 [facility] Comment on above: Performed By: #### 1 0128474, 8982100, 4086272, 32670466, 17659679, 3141225, 9297213, 8038139 #### [facility] [address] [place], [place] [address] MCH (RBC) [Entitic mass] 32.5 pg Normal 27.0-34.0 [facility] Comment on above: Performed By: #### 1 5064053, 3294826, 9115482, 94193564, 45079466, 2842858, 1297554, 3934705 #### [facility] [address] [place] [address] MCHC (RBC) [Mass/Vol] 35.2 g/dL Normal 31.4-36.0 [facility] Comment on above: Performed By: #### 1 7137817, 9134697, 6136686, 76509703, 89261552, 8748606, 4413512, 1559374 #### [facility] [address] [place], [place] [address] MCV (RBC) [Entitic vol] 92.4 fL Normal 80.0-100.0 [facility] Comment on above: Performed By: #### 1 9223007, 1166830, 7746815, 57970914, 68803736, 9001013, 4338268, 7084528 #### [facility] [address] [place] [address] Miner Absolute 0.7 E9/L Normal 0.2-1.0 [facility] Comment on above: Performed By: #### 1 6806691, 0403564, 2476145, 41892228, 78116307, 7829598, 6792058, 5511569 #### [facility] [address] [place], [place] [address] Monocytes/100 WBC (Bld) 10.9 % Normal 4.0-14.0 [facility] Comment on above: Performed By: #### 1 1767748, 2673219, 7255344, 18590218, 71156552, 1047918, 8666186, 8797120 #### [facility] [address] [place] [address] Neutro Absolute 4.6 E9/L Normal 2.0-7.5 [facility] Comment on above: Performed By: #### 1 1021058, 1735733, 5846462, 46307439, 30750870, 1662674, 0553982, 4297962 #### [facility] [address] [place] [address] Neutro Auto 67.7 % Normal 36.0-75.0 [facility] Comment on above: Performed By: #### 1 9014127, 1854909, 0557171, 88185468, 44739897, 1371253, 8154626, 5148127 #### [facility] [address] [place] [address] Platelet 143.0 E9/L Low 150.0-500.0 [facility] Comment on above: Performed By: #### 1 7867161, 0680243, 9584920, 83768417, 72028587, 4837436, 3657628, 2810840 #### [facility] [address] [place] [address] Platelet mean volume (Bld) [Entitic vol] 8.1 fL Normal 6.4-10.8 [facility] Comment on above: Performed By: #### 1 6114226, 2493051, 2735426, 84048820, 02729103, 9912069, 8244341, 5942008 #### [facility] [address] [place] [address] RBC 4.3 E12/L Normal 4.3-5.9 [facility] Comment on above: Performed By: #### 1 6669720, 4946233, 3969238, 40926314, 54257502, 7846400, 0031897, 8167498 #### [facility] [address] [address] WBC 6.7 E9/L Normal 4.0-11.0 [facility] Comment on above: Performed By: #### 1 8574312, 2324169, 0472779, 40970781, 64541402, 0729416, 2453318, 1701121 #### [facility] [address] [address] CHEMISTRYOrdered By: SYSTEM SYSTEM on 01-07-2024 Anion [...] Test Results None Pharmacy Information [facility] Discharge Instructions Please follow up w/Urology Previously Scheduled Follow-Up Appointments Sunday 11:00 AM EST With: RICKY LEVIN, Nadir Mercado Where: [facility] Mandeep Normal [facility] HEMATOLOGYOrdered By: SYSTEM SYSTEM on 01-07-2024 [...] Normal 80.0 - 100.0 fL Remisol Heme Miner Absolute 0.7 E9/L Normal 0.2 - 1.0 [...] Inpatient Clinical Summaryon 01-07-2024 Inpatient Clinical Summary [place] [address] Clinical Summary Person Information: Name: STEVE WILLIAMSON Age: 58 Years : 1965 Sex: Male PCP: DELPHINE BERRY NP Marital Status: Race: White Ethnicity: Non- or Language: Dominican Visit Id: Visit Reason: Post surgical problem; Fever; Hematuria; DIFFICULTY URINATING / LOW GRADE FEVER / SENT FROM [facility] Speciality: Acuity: Enc Type: Inpatient Med Service: Medical Arrival: 01/04/2024 15:24:45 Discharge: Dispo Type: Admitted as IP to this Hosp Address: [address] [place] [id number] Provider Notes: Diagnosis: 1:Sepsis; 2:Prostatitis; 3:BPH with [...] Attending Physician: Rod Brown DO Consulting Physician: Aamnda LEVIN, Marvel Morton Referring Physician: Follow up: With: Address: When: Nadir GARCÍA [facility], [address] [place] [address] Business (1) Comments: Call for followup appointment With: Address: When: DELPHINE BERRY Comments: Call for followup appointment Type Location Start [place]ish State URO Office Visit [facility] Mandeep 01/18/2024 11:00 AM 01/18/2024 11:15 AM Confirmed Patient Education Information: Normal [facility] Inpatient Patient Summaryon 01-07-2024 Inpatient Patient Summary [address] [address] Patient Discharge Instructions PERSON INFORMATION Name: STEVE [...] Follow up: With: Address: When: Nadir GARCÍA [facility], [address] [place] [address] Business (1) Comments: Call for followup appointment With: Address: When: DELPHINE TRUBACHIK Comments: Call for followup appointment In the event that this physician does not participate in your insurance network, please consult with your insurance company to find a nearby participating provider. Type Location Start [place]ish State URO Office Visit [facility] NOAH Kaufman 01/18/2024 11:00 AM 01/18/2024 11:15 AM Confirmed Comment: DORA Garcia GREGORY A, have received the attached patient education materials/instructions and have verbalized understanding: Patient Signature Date Clinican/Nurse Signature ___ Date HERE ARE THE MEDICATION CHANGES THAT OCCURRED DURING YOUR HOSPITAL STAY New Medications [employer] [facility] [address], [address], [place] [id number], [phone] levofloxacin (Levaquin 750 mg Tab) 1 Tablets [...] Tablets By Mouth every day. Pharmacy Information: [facility] , Mail Order Comment: PATIENT EDUCATION INFORMATION Instructions: Medication Leaflets: You may receive a survey from [employer] asking you to rate your care experience. Your feedback is important and will help us understand what we do well and how we can improve the quality of care we provide to you, your loved ones and our community. It?s an honor to serve you. Thank you for choosing [facility] Normal [facility] Insurance Correspondence Off ice01-07-2024 Insurance Correspondence Office [id number]#1.0 0TIFF Normal [facility] Interdisciplinary Note - Merrill e Manageron 01-07-2024 Interdisciplinary Note - Lining Folder Pt will dc today on PO atx. pt's will transport. Return to work letter will be prepared by bedside nurse. Chandrakant dc today. Normal [facility] Comment on above: Result Comment: Elec tronically Signed By: Licha Ley\Date and Time Signed: 01/07/24 13:38 EST Interdisciplinary Note - Soc ial Workeron 01-07-2024 Interdisciplinary Note - [employer] Consult for positive SDOH received for possible issues with transportation to appointments. SW attempted to meet with patient, however he had already been discharged when SW arrived to the floor. SW will remain available. Normal [facility] Monitor Recordon 01-07-2024 Monitor Record [id number]#1. 00TIFF Normal [facility] Monitor Record [id number]#1. 00TIFF Normal [facility] Prostate Histology ([facility]) on 01-07-2024 Prostate Histology Diagnosis Info Invalid Interpretation Code [facility] Comment on above: Result Comment: A:Pr ostate,Left Lateral Base:Needle Biopsy Interpretation - - Benign prostatic tissue with patchy inflammation. MicroScopic Description - B:Prostate,Left Lateral Mid:Needle Biopsy Interpretation - - Benign prostatic tissue. MicroScopic Description - C:Prostate,Left Lateral Kinta:Needle Biopsy Interpretation - - Benign prostatic tissue. MicroScopic Description - D:Prostate,Left Base:Needle Biopsy Interpretation - - Benign prostatic tissue. MicroScopic Description - E:Prostate,Left Mid:Needle Biopsy Interpretation - - High-grade prostatic intraepithelial neoplasia (HGPIN). MicroScopic Description - F:Prostate,Left Kinta:Needle Biopsy Interpretation - - Benign prostatic tissue. MicroScopic Description - G:Prostate,Right Base:Needle Biopsy Interpretation - - Benign prostatic tissue. MicroScopic Description - H:Prostate,Right Mid:Needle Biopsy Interpretation - - Benign prostatic tissue. MicroScopic Description - I:Prostate,Right Kinta:Needle Biopsy Interpretation - - Benign prostatic tissue with patchy chronic inflammation. MicroScopic Description - J:Prostate,Right Lateral Base:Needle Biopsy Interpretation - - Benign prostatic tissue. MicroScopic Description - K:Prostate,Right Lateral Mid:Needle Biopsy Interpretation - - Benign prostatic tissue. MicroScopic Description - L:Prostate,Right Lateral Kinta:Needle Biopsy Interpretation - - Benign prostatic tissue. [...] Formalin cores 1 units cm CPT code: 27294 x 12 Electronically signed by : on: 01/07/2024 10:12:58 Performed By: #### 1 [id number] ####[facility] [address] [place] [address] eGFRon 01-07-2024 eGFR 100 mL/min/1.73 m2 Normal >=59 [facility] Comment on above: Order Comment: Order added by Discern Expert. Performed By: #### 1 5143511, 6406471, 5379697, 81012998, 81666899, 3213258, 7756378, 8834461 #### [facility] [address] [place] [address] BMPon 01-06-2024 Anion gap [Moles/Vol] 7 mmol/L Normal 6-16 [facility] Comment on above: Performed By: #### 1 5821445, 2482032, 5425748, 78892979, 15619944, 2885431, 9312882, 2068494 #### [facility] [address] [place] [address] BUN/Creat Ratio 18 No Units Normal 10-20 [facility] Comment on above: Performed By: #### 1 6797199, 0175068, 8500969, 50744757, 64398579, 9406531, 7169932, 3366545 #### [facility] [address] [place] [address] Calcium [Mass/Vol] 8.5 mg/dL Low 8.9-11.1 [facility] Comment on above: Performed By: #### 1 5603222, 5552230, 1790080, 62892956, 48330328, 2115721, 2632402, 3845833 #### [facility] [address] [place] [address] Chloride [Moles/Vol] 108 mmol/L Normal 101-111 [facility] Comment on above: Performed By: #### 1 4952823, 9765927, 4510669, 12723978, 83173197, 6445784, 4012522, 0149048 #### [facility] [address] [place] [address] CO2 [Moles/Vol] 27 mmol/L Normal 21-31 [facility] Comment on above: Performed By: #### 1 9489825, 7558231, 6177668, 65884599, 79704465, 4417092, 6054721, 6570113 #### [facility] [address] [place] [address] Creatinine [Mass/Vol] 1.0 mg/dL Normal 0.5-1.3 [facility] Comment on above: Performed By: #### 1 9248538, 1427746, 2430306, 19986131, 75664847, 2715635, 7806846, 9759817 #### [facility] [address] [place] [address] Glucose [Mass/Vol] 119 mg/dL Normal 55-199 [facility] Comment on above: Performed By: #### 1 5456173, 5423314, 3759444, 41239069, 83909811, 6296419, 6680284, 6236747 #### [facility] [address] [place] [address] Potassium [Moles/Vol] 4.2 mmol/L Normal 3.5-5.3 [facility] Comment on above: Performed By: #### 1 7739012, 5365766, 5783069, 59156283, 21718440, 5109827, 7256964, 8904423 #### [facility] [address] [place] [address] Sodium [Moles/Vol] 138 mmol/L Normal 135-145 [facility] Comment on above: Performed By: #### 1 5852826, 3001457, 9013001, 43631499, 73406362, 3087740, 5376748, 2353540 #### [facility] [address] [place] [address] Urea nitrogen [Mass/Vol] 18 mg/dL Normal 5-21 [facility] Comment on above: Performed By: #### 1 3629359, 0463407, 7608758, 12874747, 86132516, 1060640, 8657421, 5438117 #### [facility] [address] [place], [place] [address] CBC w/ Auto Diffon 4 Basophil Absolute 0.0 E9/L Normal 0.0-0.2 [facility] Comment on above: Performed By: #### 1 8923723, 1180176, 2475835, 17556251, 08963588, 2759267, 4204322, 0630417 #### [facility] [address] [place], [place] [address] Basophils/100 WBC (Bld) 0.3 % Normal 0.0-2.0 [facility] Comment on above: Performed By: #### 1 1309258, 7973022, 2922750, 72372733, 50642432, 5365768, 2349923, 4013616 #### [facility] [address] [address] Eos Absolute 0.1 E9/L Normal 0.0-0.5 [facility] Comment on above: Performed By: #### 1 3594016, 1888025, 2248409, 32984780, 18117364, 2910001, 4436894, 6687589 #### [facility] [address] [place] [address] Eosinophils/100 WBC (Bld) 2.1 % Normal 0.0-8.0 [facility] Comment on above: Performed By: #### 1 8028765, 8333755, 2928237, 20302589, 80031986, 3242276, 3629442, 0341482 #### [facility] [address] [place] [address] Erythrocyte distribution width (RBC) [Ratio] 12.4 % Normal 10.9-14.2 [facility] Comment on above: Performed By: #### 1 7694790, 4861249, 0668986, 88306264, 03666789, 1048473, 1743276, 4282455 #### [facility] [address] [place] [address] Hematocrit (Bld) [Volume fraction] 38.0 % Normal 37.7-49.0 [facility] Comment on above: Performed By: #### 1 4118952, 4584262, 3100294, 65575894, 80346550, 6998270, 5531063, 1363942 #### [facility] [address] [place] [address] Hemoglobin (Bld) [Mass/Vol] 13.5 g/dL Normal 13.5-17.5 [facility] Comment on above: Performed By: #### 1 8075356, 3217451, 2322110, 59581592, 64703746, 3209347, 3534548, 3381410 #### [facility] [address] [place] [address] Lymph Absolute 0.9 E9/L Low 1.0-4.0 [facility] Comment on above: Performed By: #### 1 0893124, 2241398, 5337195, 59060397, 10666260, 7684521, 7015713, 0161593 #### [facility] [address] [place] [address] Lymphocytes/100 WBC (Bld) 13.8 % Low 14.0-50.0 [facility] Comment on above: Performed By: #### 1 6800549, 5409174, 4654531, 62611619, 28106576, 9260693, 4580047, 6335255 #### [facility] [address] [place] [address] MCH (RBC) [Entitic mass] 32.5 pg Normal 27.0-34.0 [facility] Comment on above: Performed By: #### 1 5378563, 9230463, 1694453, 30252681, 74055224, 9484097, 7422008, 7076963 #### [facility] [address] [place], [place] [address] MCHC (RBC) [Mass/Vol] 35.1 g/dL Normal 31.4-36.0 [facility] Comment on above: Performed By: #### 1 0086325, 6366230, 3576679, 56907989, 28366118, 4133724, 3772920, 4200321 #### [facility] [address] [place] [address] MCV (RBC) [Entitic vol] 92.6 fL Normal 80.0-100.0 [facility] Comment on above: Performed By: #### 1 2311521, 0572051, 6500828, 13897401, 06622299, 2437713, 9255678, 6900829 #### [facility] [address] [address] Miner Absolute 0.9 E9/L Normal 0.2-1.0 [facility] Comment on above: Performed By: #### 1 0015765, 9283927, 1075143, 98074974, 69376109, 3141862, 5474795, 1501929 #### [facility] [address] [place] [address] Monocytes/100 WBC (Bld) 12.8 % Normal 4.0-14.0 [facility] Comment on above: Performed By: #### 1 5331531, 1270772, 6834213, 99595581, 26298430, 7963916, 0079903, 1040442 #### [facility] [address] [place] [address] Neutro Absolute 4.8 E9/L Normal 2.0-7.5 [facility] Comment on above: Performed By: #### 1 9082999, 1311203, 2354173, 96583453, 47757127, 2997667, 0870131, 3674232 #### [facility] [address] [place] [address] Neutro Auto 71.0 % Normal 36.0-75.0 [facility] Comment on above: Performed By: #### 1 1978291, 9271226, 9874247, 29708795, 11332411, 5550731, 1323222, 5550721 #### [facility] [address] [place], [place] [address] Platelet 115.0 E9/L Low 150.0-500.0 [facility] Comment on above: Performed By: #### 1 8384065, 9691426, 7443139, 27732673, 59047311, 2542697, 1131824, 1203824 #### [facility] [address] [place] [address] Platelet mean volume (Bld) [Entitic vol] 7.9 fL Normal 6.4-10.8 [facility] Comment on above: Performed By: #### 1 0190440, 0719590, 8280166, 99436666, 24533860, 2666032, 5137423, 3872995 #### [facility] [address] [place] [address] RBC 4.2 E12/L Low 4.3-5.9 [facility] Comment on above: Performed By: #### 1 9516818, 3355293, 5131838, 18928093, 67115885, 9359449, 5305928, 1454123 #### [facility] [address] [place] [address] WBC 6.8 E9/L Normal 4.0-11.0 [facility] Comment on above: Performed By: #### 1 1641665, 2596058, 2516587, 78235444, 64512519, 3777593, 1649269, 1744457 #### [facility] [address] [place] [address] CHEMISTRYOrdered By: [employer] SYSTEM on 01-06-2024 Anion gap [Moles/Vol] 7 mmol/L [...] Normal 80.0 - 100.0 fL Remisol Heme Miner Absolute 0.9 E9/L Normal 0.2 - 1.0 [...] Merrill e Manageron 01-06-2024 Interdisciplinary Note - Lining Folder CRM spoke with patient. Patient was previous rounded on by Dr Brown today. Waiting urine cx results, possible dc tomorrow. Pending cx results may need IV ATB at dc. No family in room. Patient is alert and oriented. Whiteboard updated and CRM contact # provided. Patient denies any questions or needs at dc. Normal [facility] Comment on above: Result Comment: Elec tronically Signed By: John TEE, Nancy\.br\Date and Time Signed: 01/06/24 10:57 EST Monitor Recordon 01-06-2024 Monitor Record [id number] 20 [id number]#1. 00TIFF Normal [facility] Monitor Record [id number] 20 [id number]#1. 00TIFF Normal [facility] Monitor Record [id number] 20 [id number]#1. 00TIFF Normal [facility] Monitor Record [id number] 20 [id number]#1. 00TIFF Normal [facility] Monitor Record [id number] 20 [id number]#1. 00TIFF Normal [facility] Monitor Record [id number] 20 [id number]#1. 00TIFF Normal [facility] Monitor Record [id number] 20 [id number]#1. 00TIFF Normal [facility] Progress Note-Physicianon Progress Note-Physician Assessment/Plan 1. [...] Lymph Auto: 13.8 % Low (01/06/24 05:51:00) Miner Auto: 12.8 % (01/06/24 05:51:00) Eos Auto: 2.1 % (01/06/24 05:51:00) Basophil Auto: 0.3 % (01/06/24 05:51:00) Neutro Absolute: 4.8 E9/L (01/06/24 05:51:00) Lymph Absolute: 0.9 E9/L Low (01/06/24 05:51:00) Miner Absolute: 0.9 E9/L (01/06/24 05:51:00) Eos Absolute: [...] mg= 1 (more content not included)... Normal [facility] Comment on above: Result Comment: Elec tronically Signed By: Cici Figueroa\.br\Date and Time Signed: 01/06/24 08:19 EST\.br\Electronically Co-Signed By: Rod Brown DO.br\Date and Time Co-Signed: 01/06/24 13:04 EST Progress [...] EST, Routine, Start date 01/04/24 19:18:00 EST, 02/16/24 19:18:00 EST Prescriptions Prescribed Valium 10 mg Tab: 10 mg = 1 tab(s), Oral, As Directed, PRN for anxiety, Take one hour prior to procedure., # 1 tab(s), Refills(s) 0, Pharmacy: [facility], 178, cm, 12/10/23 11:59:00 EST, Height/Length Dosing, 82, kg, 12/10/23 11:59:00 EST, Weight Dosing... alfuzosin 10 mg ER Tab: 10 mg = 1 tab(s), Oral, Daily, # 30 tab(s), Refills(s) 11, Pharmacy: [facility], 178, cm, 12/10/23 11:59:00 EST, Height/Length Dosing, 82, kg, 12/10/23 11:59:00 EST, Weight Dosing Documented Medications Documented latanoprost Opth 0.005% Kena: 1 drop(s), OPTH, Once a day (at bedtime), Other (see comment) rosuvastatin 20 mg Tab: 20 mg = 1 tab(s), Oral, Daily, High cholesterol Problem list: All Problems At risk for falls / SNOMED CT 899528494 / Possible Problem added when Risk for Falls Careplan was initiated. BPH with urinary obstruction / SNOMED CT 0504144033 / Confirmed Acute glaucoma / SNOMED CT 01276289 / Confirmed Glaucoma / SNOMED CT 21873360 / Confirmed Heart murmur / SNOMED CT 217633250 / Confirmed High cholesterol / SNOMED CT 27848202 / Confirmed High cholesterol / SNOMED CT 61887809 / Confirmed Hyperlipemia / SNOMED CT 69914603 / Confirmed Knee pain, left / SNOMED CT 99094185 / Confirmed Screen for colon cancer / SNOMED CT 908753130 / Confirmed Elevated PSA / SNOMED CT 4568788353 / Confirmed Transportation insecurity / SNOMED CT 3213992436764123 / Possible Problem added automatically by Discern Expert based on clinical documentation, Active Problems (12) Acute glaucoma At risk for falls BPH with urinary obstruction Elevated PSA Glaucoma Heart murmur High cholesterol High cholesterol Hyperlipemia Knee pain, left Screen for colon cancer Transportation insecurity Histories Past Medical History: Resolved Plantar fasciitis ([id number]): Resolved. Comments: 03/07/2013 EDT 12:51 EDT - Dilcia TEE, Lyubov RIGHT FOOT Family History: Hyperlipidemia Father Mother Procedure history: Colonoscopy ([id number]) on 10/26/2023 at 58 Years. Arthroscopy of knee ([id number]) on 05/07/2019 at 54 Years. Comments: 05/07/2019 13:06 HORTENSIA Tobias RN, Bernice A Left knee ANKLE FRACTURE. Comments: 03/07/2013 12:53 HORTENSIA Ha RN, Lyubov LEFT ANKLE ORIF Physical Examination Vital Signs [...] Return Yes (more content not included)... Normal [facility] Comment on above: Result Comment: Elec tronically Signed By: Amanda LEVIN, Marvel Morton\julisa\Date and Time Signed: 01/06/24 09:09 EST eGFRon 01-06-2024 eGFR 88 mL/min/1.73 m2 Normal >=59 [facility] Comment on above: Order Comment: Order added by Discern Expert. Performed By: #### 1 8602666, 8125524, 5797651, 51857043, 01871146, 0148186, 2114888, 1652445 #### [facility] [address] [place] [address] BMPon 01-05-2024 Anion gap [Moles/Vol] 12 mmol/L Normal 6-16 [facility] Comment on above: Performed By: #### 1 6999332, 5747218, 7633427, 98132094, 06827066, 9135394, 9646108, 7746491 #### [facility] [address] [place] [address] BUN/Creat Ratio 17 No Units Normal 10-20 [facility] Comment on above: Performed By: #### 1 3518886, 9861800, 9509994, 67465496, 26841381, 3813345, 4176931, 5072194 #### [facility] [address] [place] [address] Calcium [Mass/Vol] 8.4 mg/dL Low 8.9-11.1 [facility] Comment on above: Performed By: #### 1 0986558, 8056634, 5483220, 69146233, 09239937, 0313810, 1058935, 7926496 #### [facility] [address] [place] [address] Chloride [Moles/Vol] 105 mmol/L Normal 101-111 [facility] Comment on above: Performed By: #### 1 5415771, 8325278, 2559066, 44871970, 67921138, 3051241, 7501792, 7601996 #### [facility] [address] [place] [address] CO2 [Moles/Vol] 22 mmol/L Normal 21-31 [facility] Comment on above: Performed By: #### 1 7370464, 5938597, 1736896, 96571302, 03244781, 1515197, 0826042, 7735361 #### [facility] [address] [place] [address] Creatinine [Mass/Vol] 0.9 mg/dL Normal 0.5-1.3 [facility] Comment on above: Performed By: #### 1 9599469, 9425155, 5765674, 16810157, 48435822, 6198111, 2319603, 7058993 #### [facility] [address] [place] [address] Glucose [Mass/Vol] 106 mg/dL Normal 55-199 [facility] Comment on above: Performed By: #### 1 4073487, 6981064, 2653434, 36275067, 19620031, 8674276, 9562975, 5137428 #### [facility] [address] [place] [address] Potassium [Moles/Vol] 3.8 mmol/L Normal 3.5-5.3 [facility] Comment on above: Performed By: #### 1 7611080, 1362078, 1898132, 60703746, 90197388, 0776867, 6217094, 0392920 #### [facility] [address] [place] [address] Sodium [Moles/Vol] 135 mmol/L Normal 135-145 [facility] Comment on above: Performed By: #### 1 0562066, 6006597, 0621946, 06576898, 01318980, 9081772, 4346762, 6372860 #### [facility] [address] [place] [address] Urea nitrogen [Mass/Vol] 15 mg/dL Normal 5-21 [facility] Comment on above: Performed By: #### 1 7750470, 6108735, 4505135, 65970910, 66567838, 9719875, 7996661, 9766646 #### [facility] [address] [place] [address] CBC w/ Auto Diffon 4 Basophil Absolute 0.0 E9/L Normal 0.0-0.2 [facility] Comment on above: Performed By: #### 1 0478122, 9446485, 7782149, 00656760, 75135768, 3613882, 9101678, 2549697 #### [facility] [address] [place] [address] Basophils/100 WBC (Bld) 0.3 % Normal 0.0-2.0 [facility] Comment on above: Performed By: #### 1 9599834, 4065012, 0047860, 72257219, 38793487, 7256565, 5384419, 6810702 #### [facility] [address] [place] [address] Eos Absolute 0.0 E9/L Normal 0.0-0.5 [facility] Comment on above: Performed By: #### 1 2787625, 5968202, 1190278, 78914950, 24936231, 9814565, 8879248, 9511757 #### [facility] [address] [place] [address] Eosinophils/100 WBC (Bld) 0.3 % Normal 0.0-8.0 [facility] Comment on above: Performed By: #### 1 6359072, 6260931, 6625849, 25785313, 54024656, 5678175, 0363230, 9807179 #### [facility] [address] [place] [address] Erythrocyte distribution width (RBC) [Ratio] 12.5 % Normal 10.9-14.2 [facility] Comment on above: Performed By: #### 1 8737853, 1604304, 9035439, 91658633, 72065910, 5335786, 3239320, 2355395 #### [facility] [address] [place] [address] Hematocrit (Bld) [Volume fraction] 41.0 % Normal 37.7-49.0 [facility] Comment on above: Performed By: #### 1 3131213, 8825823, 6616335, 28794802, 46316997, 4599481, 2513603, 1607306 #### [facility] [address] [place] [address] Hemoglobin (Bld) [Mass/Vol] 14.1 g/dL Normal 13.5-17.5 [facility] Comment on above: Performed By: #### 1 3877279, 4110316, 3388898, 52333406, 94640291, 5246363, 6608643, 7154941 #### [facility] [address] [place] [address] Lymph Absolute 1.7 E9/L Normal 1.0-4.0 [facility] Comment on above: Performed By: #### 1 3309939, 8428229, 0953580, 13602834, 75036822, 7865042, 1829825, 7142396 #### [facility] [address] [address] Lymphocytes/100 WBC (Bld) 14.8 % Normal 14.0-50.0 [facility] Comment on above: Performed By: #### 1 8368889, 0806706, 4743074, 52334285, 19642826, 0196825, 7717613, 1997330 #### [facility] [address] [place], [place] [address] MCH (RBC) [Entitic mass] 31.7 pg Normal 27.0-34.0 [facility] Comment on above: Performed By: #### 1 7705159, 3629566, 1422200, 59911125, 44579338, 3974941, 7850819, 5263005 #### [facility] [address] [place] [address] MCHC (RBC) [Mass/Vol] 34.3 g/dL Normal 31.4-36.0 [facility] Comment on above: Performed By: #### 1 6649766, 7558642, 4279617, 85187778, 80086802, 7413531, 4057994, 6677171 #### [facility] [address] [place] [address] MCV (RBC) [Entitic vol] 92.2 fL Normal 80.0-100.0 [facility] Comment on above: Performed By: #### 1 8398193, 7306676, 0179755, 15012375, 80805145, 0676058, 1241663, 2798501 #### [facility] [address] [place] [address] Miner Absolute 1.1 E9/L High 0.2-1.0 [facility] Comment on above: Performed By: #### 1 5313831, 1560482, 9997843, 49790537, 56425074, 3680585, 5338295, 6372034 #### [facility] [address] [place] [address] Monocytes/100 WBC (Bld) 10.2 % Normal 4.0-14.0 [facility] Comment on above: Performed By: #### 1 0881533, 4274018, 6041323, 65701844, 70075926, 9459688, 2996739, 5980169 #### [facility] [address] [place] [address] Neutro Absolute 8.4 E9/L High 2.0-7.5 [facility] Comment on above: Performed By: #### 1 3127408, 6155433, 1734584, 10731717, 59827309, 0128635, 8422539, 5176313 #### [facility] [address] [place] [address] Neutro Auto 74.4 % Normal 36.0-75.0 [facility] Comment on above: Performed By: #### 1 3463940, 0778149, 9302711, 64326450, 58875165, 4856604, 2040897, 1483900 #### [facility] [address] [place] [address] Platelet 123.0 E9/L Low 150.0-500.0 [facility] Comment on above: Performed By: #### 1 6745224, 3780961, 6204031, 43104695, 79104671, 8799520, 0377801, 9115192 #### [facility] [address] [place] [address] Platelet mean volume (Bld) [Entitic vol] 8.4 fL Normal 6.4-10.8 [facility] Comment on above: Performed By: #### 1 9521394, 9920741, 2137998, 13116294, 70984111, 5371594, 2430326, 5666074 #### [facility] [address] [place] [address] RBC 4.5 E12/L Normal 4.3-5.9 [facility] Comment on above: Performed By: #### 1 6519610, 2532081, 4879592, 01207593, 92047480, 4593605, 6535623, 2615581 #### [facility] [address] [place] [address] WBC 11.3 E9/L High 4.0-11.0 [facility] Comment on above: Performed By: #### 1 0574737, 8044223, 0065094, 49356554, 57918935, 2247940, 3577844, 3903271 #### [facility] [address] [place] [address] CHEMISTRYOrdered By: SYSTEM SYSTEM on 01-05-2024 Anion [...] Normal 80.0 - 100.0 fL Remisol Heme Miner Absolute 1.1 E9/L High 0.2 - 1.0 [...] Merrill e Manageron 01-05-2024 Interdisciplinary Note - Lining Folder CRM spoke with patient. Patient was previous [...] other questions or needs at this time. [facility] Comment on above: Result Comment: Elec tronically Signed By: John TEE, Nancy\.br\Date and Time Signed: 01/05/24 13:21 EST Monitor Recordon 01-05-2024 Monitor Record [id number] 20 [id number]#1. 00TIFF [facility] Monitor Record [id number] 20 [id number]#1. 00TIFF [facility] Progress Note-Physicianon Progress Note-Physician Assessment/Plan 1. [...] 04:40:00) Lymph Auto: 14.8 % (01/05/24 04:40:00) Miner Auto: 10.2 % (01/05/24 04:40:00) Eos Auto: 0.3 % (01/05/24 04:40:00) Basophil Auto: 0.3 % (01/05/24 04:40:00) Neutro Absolute: 8.4 E9/L High (01/05/24 04:40:00) Lymph Absolute: 1.7 E9/L (01/05/24 04:40:00) Miner Absolute: 1.1 E9/L High (01/05/24 04:40:00) Eos [...] 23 Int._Unit/L (01/04/24 16:20:00) AST: 20 Int._Unit/L (01/04/24:20:00) Total Protein: 7.5 gm/dL (01/04/24 16:20:00) Albumin Lvl: 4.6 gm/dL (01/04/24 16:20:00) Globulin: 2.9 gm/dL (01/04/24:20:) A/G Ratio: 1.6 (01/04/24:20:00) Bili Total: 1.5 mg/dL High (01/04/24 16:20:00) Lactic Acid Lvl: 1 mmol/L (01/04/24 20:03:00) Troponin: 8.5 pg/mL Low (01/04/24 16:20:00) UA Spec Desc: Clean Catch (01/04/24 16:24:00) UA Color: Yellow2 (01/04/24:24:00) UA Clarity: Clear2 (01/04/24:24:00) UA Spec Grav: 1.025 (01/04/24:24:00) UA pH: 6.0 (01/04/24:24:00) UA Protein: Trace2 Abnormal (01/04/24:24:00) UA Glucose: NEGATIVE1 (01/04/24:24:00) UA Ketones: 1+ Abnormal (01/04/24:24:00) UA Bili: 1+ Abnormal (01/04/24 16:24:00) UA Blood: 3+ Abnormal (01/04/24 16:24:00) UA Nitrite: NEGATIVE1 (01/04/24 16:24:00) UA Urobilinogen: 0.2 (01/04/24 16:24:00) UA Leuk Est: NEGATIVE1 (01/04/24 16:24:00) UA RBC: 4-20 (01/04/24 16:24:00) UA Squam Epithelial (more content not included)... Normal [facility] Comment on above: Result Comment: Elec [...] procedure., # 1 tab(s), Refills(s) 0, Pharmacy: [facility], 178, cm, 12/10/23 11:59:00 EST, Height/Length Dosing, 82, kg, 12/10/23 11:59:00 EST, Weight Dosing... alfuzosin 10 mg ER Tab: 10 mg = 1 tab(s), Oral, Daily, # 30 tab(s), Refills(s) 11, Pharmacy: [facility], 178, cm, 12/10/23 11:59:00 EST, Height/Length Dosing, 82, kg, 12/10/23 11:59:00 EST, Weight Dosing Documented Medications Documented latanoprost Opth 0.005% Kena: 1 drop(s), OPTH, Once a day (at bedtime), Other (see comment) rosuvastatin 20 mg Tab: 20 mg = 1 tab(s), Oral, Daily, High cholesterol Problem list: All Problems At risk for falls / SNOMED CT 078418221 / Possible Problem added when Risk for Falls Careplan was initiated. BPH with urinary obstruction / SNOMED CT 1843902120 / Confirmed Acute glaucoma / SNOMED CT 86317259 / Confirmed Glaucoma / SNOMED CT 86390071 / Confirmed Heart murmur / SNOMED CT 876298152 / Confirmed High cholesterol / SNOMED CT 54109009 / Confirmed High cholesterol / SNOMED CT 16388019 / Confirmed Hyperlipemia / SNOMED CT 54818103 / Confirmed Knee pain, left / SNOMED CT 58788720 / Confirmed Screen for colon cancer / SNOMED CT 356402871 / Confirmed Elevated PSA / SNOMED CT 9134541702 / Confirmed Transportation insecurity / SNOMED CT 2287034768451533 / Possible Problem added automatically by Discern Expert based on clinical documentation, Active Problems (12) Acute glaucoma At risk for falls BPH with urinary obstruction Elevated PSA Glaucoma Heart murmur High cholesterol High cholesterol Hyperlipemia Knee pain, left Screen for colon cancer Transportation insecurity Histories Past Medical History: Resolved Plantar fasciitis ([id number]): Resolved. Comments: 03/07/2013 EDT 12:51 EDT - Dilcia TEE, Lyubov RIGHT FOOT Family History: Hyperlipidemia Father Mother Procedure history: Colonoscopy ([id number]) on 10/26/2023 at 58 Years. Arthroscopy of knee (721050848) on 05/07/2019 at 54 Years. Comments (more content not included)... Normal [facility] Comment on above: Result Comment: Elec tronically Signed By: Amanda LEVIN, Marvel Morton\.br\Date and Time Signed: 01/05/24 08:37 EST eGFRon 01-05-2024 eGFR 100 mL/min/1.73 m2 Normal >=59 [facility] Comment on above: Order Comment: Order added by Discern Expert. Performed By: #### 1 7842007, 3737489, 7559394, 98041511, 83020226, 4952729, 1040882, 8151979 #### [facility] [address] [place] [address] CBC w/ Auto Diffon 4 Basophil Absolute 0.0 E9/L Normal 0.0-0.2 [facility] Comment on above: Performed By: #### 1 1519786, 1336284, 6787463, 91985613, 04328532, 4629625, 1857518, 6790893 #### [facility] [address] [place] [address] Basophils/100 WBC (Bld) 0.1 % Normal 0.0-2.0 [facility] Comment on above: Performed By: #### 1 0398097, 0872009, 8986733, 97934182, 21947637, 6568201, 9327937, 8752897 #### [facility] [address] [place] [address] Eos Absolute 0.0 E9/L Normal 0.0-0.5 [facility] Comment on above: Performed By: #### 1 8672336, 7037233, 6606769, 05411378, 41028362, 3276505, 8607902, 4453687 #### [facility] [address] [place] [address] Eosinophils/100 WBC (Bld) 0.0 % Normal 0.0-8.0 [facility] Comment on above: Performed By: #### 1 1099776, 5310449, 4212060, 23584486, 48628938, 7331292, 9222061, 5628267 #### [facility] [address] [place] [address] Erythrocyte distribution width (RBC) [Ratio] 12.7 % Normal 10.9-14.2 [facility] Comment on above: Performed By: #### 1 5884480, 8915838, 6383863, 51238823, 87283938, 1122008, 6961632, 8622612 #### [facility] [address] [address] Hematocrit (Bld) [Volume fraction] 44.0 % Normal 37.7-49.0 [facility] Comment on above: Performed By: #### 1 8728421, 2954635, 8125023, 13343797, 73224907, 4530323, 2266730, 3860619 #### [facility] [address] [place] [address] Hemoglobin (Bld) [Mass/Vol] 15.5 g/dL Normal 13.5-17.5 [facility] Comment on above: Performed By: #### 1 9187593, 8336420, 7343263, 21626841, 55844375, 9661278, 5114035, 6145009 #### [facility] [address] [place] [address] Lymph Absolute 0.9 E9/L Low 1.0-4.0 [facility] Comment on above: Performed By: #### 1 2729183, 4054042, 6389975, 14827596, 05557795, 5693868, 0430799, 1092118 #### [facility] [address] [place] [address] Lymphocytes/100 WBC (Bld) 6.3 % Low 14.0-50.0 [facility] Comment on above: Performed By: #### 1 3993980, 5416244, 8137270, 39829461, 68910550, 6029040, 7738306, 6193908 #### [facility] [address] [place] [address] MCH (RBC) [Entitic mass] 32.4 pg Normal 27.0-34.0 [facility] Comment on above: Performed By: #### 1 3908720, 9632580, 8999573, 90145090, 76832337, 3234193, 3582048, 1336216 #### [facility] [address] [place] [address] MCHC (RBC) [Mass/Vol] 35.1 g/dL Normal 31.4-36.0 [facility] Comment on above: Performed By: #### 1 8406531, 1934579, 3440549, 35790672, 95137127, 7703052, 4157758, 4848757 #### [facility] [address] [place], [place] [address] MCV (RBC) [Entitic vol] 92.3 fL Normal 80.0-100.0 [facility] Comment on above: Performed By: #### 1 8561826, 4617807, 6378108, 80395131, 35965259, 3982047, 8080156, 4092707 #### [facility] [address] [place] [address] Miner Absolute 1.2 E9/L High 0.2-1.0 [facility] Comment on above: Performed By: #### 1 3463481, 0348164, 1558146, 25034514, 97831405, 1431987, 1112702, 7048972 #### [facility] [address] [place], [place] [address] Monocytes/100 WBC (Bld) 8.3 % Normal 4.0-14.0 [facility] Comment on above: Performed By: #### 1 1543668, 7531930, 6274910, 63336198, 15787794, 0069689, 8042620, 0929960 #### [facility] [address] [place] [address] Neutro Absolute 12.5 E9/L High 2.0-7.5 [facility] Comment on above: Performed By: #### 1 3636147, 1409546, 4822258, 40323167, 06040618, 5653410, 0090781, 9450084 #### [facility] [address] [place] [address] Neutro Auto 85.3 % High 36.0-75.0 [facility] Comment on above: Performed By: #### 1 7335461, 1394846, 6057205, 44036214, 79452008, 6915498, 3157459, 5431996 #### [facility] [address] [place] [address] Platelet 130.0 E9/L Low 150.0-500.0 [facility] Comment on above: Performed By: #### 1 9983531, 1053217, 7322414, 83236011, 62757063, 9193007, 0883986, 6810463 #### [facility] [address] [place] [address] Platelet mean volume (Bld) [Entitic vol] 8.0 fL Normal 6.4-10.8 [facility] Comment on above: Performed By: #### 1 0691701, 4880903, 1112634, 83852362, 42791803, 2537093, 8601565, 1146260 #### [facility] [address] [place] [address] RBC 4.8 E12/L Normal 4.3-5.9 [facility] Comment on above: Performed By: #### 1 4714047, 2564866, 4167393, 63760114, 96557458, 7900001, 5488916, 7019536 #### [facility] [address] [place] [address] WBC 14.6 E9/L High 4.0-11.0 [facility] Comment on above: Performed By: #### 1 5453135, 3228071, 0100141, 50032270, 50481917, 8732646, 0235327, 4784404 #### [facility] [address] [place] [address] CHEMISTRYOrdered By: SYSTEM SYSTEM on 01-04-2024 Lactic [...] 01-04-2024 Albumin [Mass/Vol] 4.6 g/dL Normal 3.3-5.0 [facility] Comment on above: Performed By: #### 1 7981803, 2516294, 7524032, 73445114, 78165521, 3846818, 8647665, 4676531 #### [facility] [address] [place] [address] Albumin/Globulin [Mass ratio] 1.6 {ratio} Normal 1.1-2.2 [facility] Comment on above: Performed By: #### 1 6237687, 1074815, 5292317, 21799147, 83726592, 4800969, 6506038, 5395288 #### [facility] [address] [place] [address] Alk Phos 57 Int._Unit/L Normal 21-98 [facility] Comment on above: Performed By: #### 1 5173721, 4219583, 7553262, 21050928, 54612947, 0844089, 1117669, 7128494 #### [facility] [address] [place] [address] ALT 23 Int._Unit/L Normal 6-46 [facility] Comment on above: Performed By: #### 1 6155117, 0143160, 4064052, 06552962, 50352723, 2798724, 2833829, 5748543 #### [facility] [address] [place] [address] Anion gap [Moles/Vol] 13 mmol/L Normal 6-16 [facility] Comment on above: Performed By: #### 1 7100155, 4026092, 2907236, 88189988, 15736165, 0973353, 8726083, 4934521 #### [facility] [address] [place] [address] AST 20 Int._Unit/L Normal 5-43 [facility] Comment on above: Performed By: #### 1 1928726, 8751874, 5556753, 64802951, 99898481, 3365352, 1233591, 8679355 #### [facility] [address] [place] [address] Bili Total 1.5 mg/dL High 0.0-1.1 [facility] Comment on above: Performed By: #### 1 9494313, 9647453, 9838362, 68569070, 77832777, 9019139, 6849576, 8780319 #### [facility] [address] [place] [address] BUN/Creat Ratio 13 No Units Normal 10-20 [facility] Comment on above: Performed By: #### 1 9271239, 3912938, 5179833, 39885051, 49939249, 0647404, 9700705, 0692651 #### [facility] [facility] [address] [place] [address] Calcium [Mass/Vol] 9.2 mg/dL Normal 8.9-11.1 [facility] Comment on above: Performed By: #### 1 [id number], 6516397, 6942742, 55215785, 20475684, 7460773, 2006604, 5325728 #### [facility] [address] [place] [address] Chloride [Moles/Vol] 98 mmol/L Low 101-111 [facility] Comment on above: Performed By: #### 1 7754071, 1690569, 9083648, 53610618, 78780258, 6181072, 9995601, 2522367 #### [facility] [address] [place] [address] CO2 [Moles/Vol] 26 mmol/L Normal 21-31 [facility] Comment on above: Performed By: #### 1 8065391, 0272297, 3884386, 58071810, 57733680, 5667240, 0416314, 2226713 #### [facility] [address] [place] [address] Creatinine [Mass/Vol] 1.3 mg/dL Normal 0.5-1.3 [facility] Comment on above: Performed By: #### 1 1633498, 1858601, 1702840, 54912995, 19387128, 0110888, 1618885, 4935109 #### [facility] [address] [place] [address] Globulin (S) [Mass/Vol] 2.9 g/dL Normal 1.4-4.0 [facility] Comment on above: Performed By: #### 1 9779949, 1700930, 5603707, 22137603, 24426814, 1302795, 0142114, 1881918 #### [facility] [address] [place] [address] Glucose [Mass/Vol] 134 mg/dL Normal 55-199 [facility] Comment on above: Performed By: #### 1 8931901, 6859516, 1860404, 72679277, 27916250, 8868041, 0107540, 8787758 #### [facility] [address] [place] [address] Potassium [Moles/Vol] 3.7 mmol/L Normal 3.5-5.3 [facility] Comment on above: Performed By: #### 1 5422881, 1258107, 2015531, 59400613, 40111116, 9658950, 8956283, 7568979 #### [facility] [address] [place] [address] Protein [Mass/Vol] 7.5 g/dL Normal 6.0-7.8 [facility] Comment on above: Performed By: #### 1 4699067, 6590529, 8785040, 91382159, 78369644, 7239428, 3904546, 3033995 #### [facility] [address] [place] [address] Sodium [Moles/Vol] 133 mmol/L Low 135-145 [facility] Comment on above: Performed By: #### 1 3066688, 4366084, 4898199, 92360098, 98889545, 9398316, 2057838, 9148399 #### [facility] [address] [place] [address] Urea nitrogen [Mass/Vol] 17 mg/dL Normal 5-21 [facility] Comment on above: Performed By: #### 1 6724012, 1498750, 6579914, 84999831, 71520861, 3103213, 8035670, 2919443 #### [facility] [address] [place] [address] COAGULATIONOrdered By: Harris weinstein Etienne on 01-04-2024 aPTT Coag (PPP) [Time] 34.6 s Normal 25.1 - 36.5 second(s) [facility] Comment on above: Interpretive Data: [...] the same coagulation reagent and instrumentation as [facility]. Currently there are no coagulation studies available worldwide for children to 14 days, and no normal ranges. Heparin therapeutic range (represented by Anti-Factor Xa activity of 0.2 - 0.4 U/mL) corresponds to PTT of 56.6 - 109.0 sec. INR Coag (PPP) [Relative time] 1.41 {INR} Invalid Interpretation Code [facility] Comment on above: Interpretive Data: I NR results are specifically intended to assess patients stabilized on long-term Anticoagulation therapy suggested INR s Less Intensive Anticoagulation 2.0 3.0 Conventional Range 3.0 4.5 PT Coag (PPP) [Time] 15.9 s High 9.4 - 1 2.5 second(s) [facility] Comment on above: Interpretive Data: [...] the same coagulation reagent and instrumentation as [facility]. Currently there are no coagulation studies available worldwide for children to 14 days, and no normal ranges. Consent for Treatmenton 12-20 Consent for Treatment [id number] 0TIFF Normal [facility] ED Clinical Summaryon 2023 ED Clinical Summary [place] [id number] ED Clinical Summary Person Information Name: STEVE WILLIAMSON Shayna/[facility] Age: 58 Years : 1965 Sex: Male Language: Dominican PCP: DELPHINE BERRY NP Marital Status: Visit Id: Visit Reason: Post surgical problem; Fever; Hematuria; DIFFICULTY URINATING / LOW GRADE FEVER / SENT FROM [facility] Speciality: Acuity: 2 Enc Type: Inpatient Med Service: Emergency Arrival: 01/04/2024 15:24:45 Discharge: LOS: 000 03:12 Checkin: 01/04/2024 15:24:45 Checkout: 01/04/2024 18:36:58 Dispo Type: Admitted as IP to this [facility] EVENTS: Event Name Event Status Request Date/Time [...] 18:18:37 Patient Care Request 01/04/2024 18:18:37 ADDRESS: [address] [place] [id number] PHYS DOC NOTES: MEDICAL INFORMATION: Prescriptions Given: [...] Instructions: Follow up: DIAGNOSIS: Prostatitis; Sepsis Normal [facility] ED Patient Education Noteon 01-04-2024 ED Patient Education Note Normal [facility] ED Patient Summaryon 024 ED Patient Summary [place] [id number] Patient Discharge Instructions Person Information Name: STEVE WILLIAMSON Age: 58 Years Arrival Date: 01/04/2024 15:24:45 Discharge Diagnosis: Prostatitis; Sepsis Primary Care Physician: KRISTI MENA DELPHINE Provider Information Primary Provider: Sara Patel M.D. Advanced Irrigator Overhead:None The exam and treatment you received in the Emergency Department were for an urgent problem and are not intended as complete care. It is important that you follow up with a doctor, nurse practitioner, or physician?s equal opportunity assistant for ongoing care. If your symptoms [...] opioids can be used to help relieve adfkzokp-ac-jwjttm pain and are often prescribed following a [...] be struggling with addiction, tell your health pharmacist critical care and ask for guidance or call SAMHSA?S National Helpline at 9-317-885-RUXB. v Source: [place] Department of Health and Human Services/Center for Disease Control & Prevention [facility] Medications Given: Medication Dose Route Sodi (more content not included)... Normal [facility] Influenza A&B Agon Influenzae A Ag Negative Normal Negative [facility] Comment on above: Performed By: #### 1 3792200, 9521747, 8687352, 50189803, 01075607, 7834163, 6809347, 4912545 #### [facility] [address] [place] [address] Influenzae B Ag Negative Normal Negative [facility] Comment on above: Result Comment: Test sensitivity and specificity vary for age group, specimen type, antigen types, and prevalence of disease. Test results must be evaluated in conjunction with other clinical data available to the physician. Individuals who received nasally administered Influenza A vaccine may have positive test results up to 3 days after vaccination. Performed By: #### 1 7087307, 2867242, 0606934, 24507525, 31876327, 1818686, 4934261, 5646540 #### [facility] [address] [place] [address] Laboratory - Microbiology an d Antimicrobial susceptibilityOrdered By: Maryjo Ventura on 01-04-2024 Bacteria identified Cx Nom (U) No growth to date [facility] Lactic Acidon 01-04-2024 Lactic Acid Lvl 1.0 mmol/L Normal 0.5-2.2 [facility] Comment on above: Performed By: #### 2 272515 #### [facility] [address] [place] [address] Lactic Acid Lvl 1.3 mmol/L Normal 0.5-2.2 [facility] Comment on above: Performed By: #### 1 6132013, 9725429, 6567914, 97545759, 24845247, 8604141, 5073985, 3926905 #### [facility] [address] [place] [address] MICRO OTHER TESTSOrdered By: Adriana Rivera on 01-04-2024 Influenzae A Ag Negative (01/04/24 4:24 PM) Normal Negative [facility] Man Sero Influenzae B Ag Negative 1 (01/04/24 4:24 PM) Normal Negative [facility] Comment on above: Interpretive Data: [...] NEG Ctl Pass (01/04/24 4:24 PM) Normal [facility] Rapid COV Int POS Ctl Pass (01/04/24 4:24 PM) Normal [facility] SARS-CoV+SARS-CoV-2 (COVID-19) Ag IA.rapid Ql (Resp) Not Detected 6 (01/04/24 4:24 PM) Normal Not Detected [facility] Comment on above: Interpretive Data: Zari he Uberseq Veritor System for Rapid Detection of SARS-CoV-2 [...] For in vitro diagnostic use. In the [facility], only for use under an Emergency Use Authorization. In the [facility], this test has not been FDA cleared [...] revoked sooner. Monitor Recordon 01-04-2024 Monitor Record [id number] Normal [facility] No Panel InformationOrdered By: [facility]ERC[facility] [facility] on 01-04-2024 Blood Culture Charcoal No growth at 3 da ys. Final to follow at 7 days. [facility] Blood Culture Charcoal No growth at 3 da ys. Final to follow at 7 days. [facility] PT & PTTon 01-04-2024 aPTT Coag (PPP) [Time] 34.6 second(s) Normal 25.1-36.5 [facility] Comment on above: Result Comment: Para [...] the same coagulation reagent and instrumentation as [facility]. Currently there are no coagulation studies available worldwide for children to 14 days, and no normal ranges. Heparin therapeutic range (represented by Anti-Factor Xa activity of 0.2 - 0.4 U/mL) corresponds to PTT of 56.6 - 109.0 sec. Performed By: #### 1 2366803, 4052731, 5090685, 43835958, 94659034, 5881264, 2454029, 8656512 #### [facility] [address] [place] [address] INR Coag (PPP) [Relative time] 1.41 {INR} Invalid Interpretation Code [facility] Comment on above: Result Comment: INR results are specifically intended to assess patients stabilized on long-term Anticoagulation therapy suggested INR?s ?Less Intensive Anticoagulation? 2.0 ? 3.0 Conventional Range 3.0 ? 4.5 Performed By: #### 1 3602476, 5219153, 2312231, 59350377, 15050958, 6117625, 2876114, 6596350 #### [facility] [address] [place] [address] PT Coag (PPP) [Time] 15.9 second(s) High 9.4-12.5 [facility] Comment on above: Result Comment: 15 [...] the same coagulation reagent and instrumentation as [facility]. Currently there are no coagulation studies available worldwide for children to 14 days, and no normal ranges. Performed By: #### 1 8542299, 2995114, 6576099, 40860942, 43096325, 3061600, 9424550, 3457294 #### [facility] [address] [place] [address] Rapid COVID Antigen ([facility])on 01-04-2024 Rapid COV Int NEG Ctl Pass Normal [facility] Comment on above: Performed By: #### 1 7021996, 5186131, 4984327, 40719739, 38309836, 7941406, 6547714, 1646513 #### [facility] [address] [place] [address] Rapid COV Int POS Ctl Pass Normal [facility] Comment on above: Performed By: #### 1 5835614, 9108688, 1759720, 07157285, 24813413, 6442073, 8175407, 5863655 #### [facility] [address] [place] [address] SARS-CoV+SARS-CoV-2 (COVID-19) Ag IA.rapid Ql (Resp) Not detected Normal Not Detected [facility] Comment on above: Result Comment: The WindPipeitor? System for Rapid Detection of SARS-CoV-2 is [...] or revoked sooner. Performed By: #### 1 3519965, 8335213, 8434376, 31718939, 15844087, 8674557, 0871030, 9944207 #### [facility] [address] [place] [address] Troponinon 01-04-2024 Troponin 8.50 pg/mL Low 15.90-38.40 [facility] Comment on above: Result Comment: The 95% CI (Confidence Interval) PPV (Positive Predictive Value) for myocardial infarction in females is 38 pg/mL, in males 51 pg/mL. The results should be used in conjunction with clinical conditions of myocardial infarction. (Access High Sensitivity Troponin I Instructions For Use, Abby Baudilio, June 2018) Performed By: #### 1 4447657, 2052058, 3123289, 73041371, 49508689, 4916990, 1846401, 4572640 #### [facility] [address] [place] [address] UA With Cult Reflexon 2023 Bacteria LM Ql (Urine sed) TRACE Normal Trace [facility] Comment on above: Performed By: #### 2 738287 #### [facility] [address] [place] [address] Bilirubin Ql (U) 1+ Abnormal Negative [facility] Comment on above: Performed By: #### 2 673288 #### [facility] [address] [place] [address] Clarity (U) CLEAR Normal Clear [facility] Comment on above: Performed By: #### 2 129231 #### [facility] [address] [place] [address] Color (U) YELLOW Normal Yellow [facility] Comment on above: Performed By: #### 2 657922 #### [facility] [address] [place] [address] Epithelial cells.squamous LM.HPF (Urine sed) [#/Area] 0-2 Normal 0-2 [facility] Comment on above: Performed By: #### 2 240170 #### [facility] [address] [place] [address] Glucose Test strip (U) [Mass/Vol] Negative Normal Negative [facility] Comment on above: Performed By: #### 2 165610 #### [facility] [address] [place] [address] Hemoglobin Ql (U) 3+ Abnormal Negative [facility] Comment on above: Performed By: #### 2 910447 #### [facility] [address] [place] [address] Ketones (U) [Mass/Vol] 1+ Abnormal Negative [facility] Comment on above: Performed By: #### 2 050490 #### [facility] [address] [place] [address] [place].plasma/[place].R BC (Bld) [Mass ratio] 4-20 Normal 0-3 [facility] Comment on above: Performed By: #### 2 625866 #### [facility] [address] [place] [address] Mucus Ql (Urine sed) 1+ Normal [facility] Comment on above: Performed By: #### 2 776911 #### [facility] [address] [place] [address] Nitrite Ql (U) Negative Normal Negative [facility] Comment on above: Performed By: #### 2 876502 #### [facility] [address] [place] [address] pH (U) 6.0 [pH] Invalid Interpretation Code 5.0-9.0 [facility] Comment on above: Performed By: #### 2 775179 #### [facility] [address] [place] [address] Protein (U) [Mass/Vol] TRACE Abnormal Negative [facility] Comment on above: Performed By: #### 2 630998 #### [facility] [address] [place] [address] Specific gravity (U) [Rel density] 1.025 Invalid Interpretation Code 1.005-1.030 [facility] Comment on above: Performed By: #### 2 350653 #### [facility] [address] [place] [address] Type of Urine collection method Clean Catch Normal [facility] Comment on above: Performed By: #### 2 273732 #### [facility] [address] [place] [address] Urobilinogen Qn (U) 0.2 {Kishan'U}/dL Normal 0.0-1.0 [facility] Comment on above: Performed By: #### 2 729317 #### [facility] [address] [place] [address] WBC Auto Ql (U) Negative Normal Negative [facility] Comment on above: Performed By: #### 2 869914 #### [facility] [address] [place] [address] WBC LM.HPF (Urine sed) [#/Area] 0-5 Normal 0-5 [facility] Comment on above: Performed By: #### 2 219572 #### [facility] [address] [place] [address] URINALYSISOrdered By: Parish Clifton on 01-04-2024 Bacteria LM Ql (Urine sed) Trace /HPF Normal Trace/HPF [facility] Auto SS Bilirubin Ql (U) 1+ *ABN* (01/04/24 4:24 PM) Invalid Interpretation Code Negative [facility] UA Auto SS Clarity (U) Clear (01/04/24 4:24 PM) Normal Clear [facility] UA Auto SS Color (U) Yellow (01/04/24 4:24 PM) Normal Yellow [facility] Auto SS Epithelial cells.squamous LM.HPF (Urine [...] Interpretation Code Negative [facility] UA Auto SS [place].plasma/[place].R BC (Bld) [Mass ratio] 4-20 /HPF Normal 0-3/HPF [facility] UA Au to SS Mucus Ql (Urine [...] [facility] UA Auto SS Urobilinogen Qn (U) 0.1325359 {Kishan'U}/dL Normal 0.0 - 1.0 EU/dL [facility] [...] mGy = na DAP = na Normal [facility] eGFRon 01-04-2024 eGFR 64 mL/min/1.73 m2 Normal >=59 [facility] Comment on above: Order Comment: Order added by Discern Expert. Performed By: #### 1 6368785, 2333267, 0612973, 94932639, 26480449, 2939777, 2337948, 2251961 #### [facility] [address] [place] [address] Consent for Procedure/Surger yon 01-01-2024 Consent for Procedure/Surgery [id number]. 00TIFF Normal [facility] Consent for Treatmenton 12-20 Consent for Treatment [id number] 0TIFF Normal [facility] IntraOperative Documentson 0 01-01-2024 IntraOperative Documents [id number]. 00TIFF [facility] Main OR Intraoperative Recor don 01-01-2024 Main OR Intraoperative Record IntraOp Document Type [facility] Summary Primary Physician: Nadir GARCÍA MD Finalized Date/Time: 01/01/24 10:40:42 Pt. Name: STEVE WILLIAMSON/Sex: 1965 Male Med Rec #: [id number] Physician: Nadir GARCÍA MD Financial #: [id number] Pt. Type: O Room/Bed: / Admit/Disch: 01/01/24 09:21:31 - Institution: Case Times FT[facility]O Entry 1 Patient Times In Room 01/01/24 10:24:00 Out Room 01/01/24 10:46:00 Procedure Times Start 01/01/24 10:27:00 Stop 01/01/24 10:41:00 Anesthesia Times Last Modified By: Noy TEE, Mahnaz RUIZ 01/01/24 10:40:17 Case Attendance [facility] Entry 1 Entry 2 Entry 3 Case Attendee RICKY LEVIN, Nadir Villafuerte RN, BILLIEOR, Aleksander TAVEARS, Teena Joya Role Performed Surgeon - Primary Advertising Sales Agent - Primary Scrub - Primary Time In 01/01/24 10:24:00 01/01/24 10:24:00 01/01/24 10:24:00 Time Out 01/01/24 10:46:00 01/01/24 10:46:00 01/01/24 10:46:00 Procedure PROSTATE TRANSRECTAL PROSTATE TRANSRECTAL PROSTATE TRANSRECTAL ULTRASOUND WITH BIO(.) ULTRASOUND WITH BIO(.) ULTRASOUND WITH BIO(.) Comments Last Modified By: Noy TEE, BILLIEOR, Noy TEE, BILLIEOR, Noy TEE, BILLIEOR, Mahnaz 01/01/24 Mahnaz 01/01/24 Mahnaz 01/01/24 10:40:18 10:40:18 10:40:18 Surgical Procedures FT[facility]O Entry 1 Procedure Description Procedure PROSTATE TRANSRECTAL Modifiers . ULTRASOUND WITH BIOPSY Surgeon Description TRUS BIOPSY Primary Procedure Yes Primary Surgeon Nadir GARCÍA MD Start 01/01/24 10:27:00 Stop 01/01/24 10:41:00 Anesthesia Type Local Surgical Service Urology Wound Class 2 - Clean-Contaminated Last Modified By: Noy TEE, JOSEPH, Mahnaz 01/01/24 10:40:19 General Case Data [facility] Pre-Care Text: Classifies surgical wound, implements aseptic technique, initiates traffic control Entry 1 Case Information OR URO 1 FT Case Level None Wound Class 2 - Clean-Contaminated Specialty Urology Preop Diagnosis ELEVATED PSA Postop Same As Preop Yes Postop Diagnosis ELEVATED PSA Outcomes Met? Yes Last Modified By: JOSEPH Villafuerte RN, Mahnaz 01/01/24 10:27:47 Post-Care Text: The patient is [...] Out Nadir GARCÍA MD, Verified (If Participants Noy TEE, BILLIEOR, Applicable) Aelksander Joya CST, Kimberly A Time Out Complete [...] By: JOSEPH Villafuerte RN, Ruthann 01/01/24 10:40 Normal [facility] Main OR Preoperative Recordo n 01-01-2024 Main OR Preoperative Record Holding Area Document Type [facility] Summary Primary Physician: Nadir GARCÍA MD Finalized Date/Time: 01/01/24 10:31:15 Pt. Name: STEVE WILLIAMSON/Sex: 1965 Male Med Rec #: [id number] Physician: Nadir GARCÍA MD Financial #: [id number] Pt. Type: O Room/Bed: / Admit/Disch: 01/01/24 [...] Complaints of Pain: No Skin Integrity Intact, [place], Warm, & Dry Vitals - EU Blood Pressure 133/83 Pulse 63 bpm Respirations 18 br/min SPO2 96 % RN Reviewed Yes Last Modified By: JOSEPH Villafuerte RN, Ruthann 01/01/24 10:31:13 Finalized By: JOSEPH Villafuerte RN, Ruthann Document Signatures Signed By: Johana Casas LPN 01/01/24 10:05 JOSEPH Villafuerte RN, Ruthann 01/01/24 10:31 Normal [facility] Operative Reporton Operative Report Patient: STEVE [...] were sent to pathology for evaluation. Normal [facility] Comment on above: Result Comment: Elec tronically Signed By: RICKY LEVIN, Nadir Marsh.gerhard\Date and Time Signed: 01/01/24 10:44 EST Patient [...] for your post-operative appointment in 1-2 weeks [phone] or [phone] Normal [facility] Prostate Histology ([facility]) on 01-01-2024 PH Method of Extraction Needle Biopsy Normal [facility] Comment on above: Performed By: #### 1 [id number] ####[facility] [address] [place] [address] PH Number of Jars 2 Invalid Interpretation Code [facility] Comment on above: Performed By: #### 1 [id number] ####[facility] [address] [address] PH Specimen 1 L Base Prostate Normal [facility] Comment on above: Performed By: #### 1 [id number] ####[facility] [address] [place] [address] PH Specimen 10 R Lat Bse Prost Normal [facility] Comment on above: Performed By: #### 1 [id number] ####[facility] [address] [place] [address] PH Specimen 11 R Lat Mid Prost Normal [facility] Comment on above: Performed By: #### 1 [id number] ####[facility] [address] [address] PH Specimen 12 R Lat Apx Prost Normal [facility] Comment on above: Performed By: #### 1 [id number] ####[facility] [address] [place] [address] PH Specimen 2 L Mid Prostate Normal [facility] Comment on above: Performed By: #### 1 [id number] ####[facility] [address] [place] [address] PH Specimen 3 L Apx Prostate Normal [facility] Comment on above: Performed By: #### 1 [id number] ####[facility] [address] [place] [address] PH Specimen 4 L Lat Bse Prost Normal [facility] Comment on above: Performed By: #### 1 [id number] ####[facility] [address] [place] [address] PH Specimen 5 L Lat Mid Prost Normal [facility] Comment on above: Performed By: #### 1 [id number] ####[facility] [address] [place] [address] PH Specimen 6 L Lat Apx Prost Normal [facility] Comment on above: Performed By: #### 1 [id number] ####[facility] [address] [place] [address] PH Specimen 7 R Base Prostate Normal [facility] Comment on above: Performed By: #### 1 [id number] ####[facility] [address] [place] [address] PH Specimen 8 R Mid Prostate Normal [facility] Comment on above: Performed By: #### 1 [id number] ####[facility] [address] [place] [address] PH Specimen 9 R Apx Prostate Normal [facility] Comment on above: Performed By: #### 1 [id number] ####[facility] [address] [place] [address] PH Type of Service Technical Only Normal [facility] Comment on above: Performed By: #### 1 [id number] ####[facility] [address] [place] [address] Physician Referralon 024 Physician Referral [id number] 0TIFF [facility] Ambulatory Visit Summaryon 0 12-10-2023 Ambulatory Visit Summary STEVE WILLIAMSON :1965 Visit Date:12/10/2023 Ambulatory Visit Instructions Your Diagnosis BPH with urinary obstruction Elevated PSA Tests Performed Urnls Dip Stick Auto w/o Microscopy POC 31530 Your Care Team Attending Physician - Nadir [...] Nadir GARCÍA MD Where: [facility] Patient Educationon 12-10-19 24 Patient Education Urology [...] Follow these instructions at home: ? Take cenr-nck-kzyflnz and prescription medicines only as told by [...] the medicine (more content not included)... Normal [facility] IntraOperative Documentson 1 01-15-2023 IntraOperative Documents [id number]. 00TIFF [facility] Postoperative Documentson Postoperative Documents [id number] 0TIFF [facility] Reminderson 11-05-2023 Reminders - From: [facility]am [place] To: ALONZO - Reminders/Recalls; Sent: 11/05/2023 10:35:03 EST Show up: 09/19/2026 10:34:00 EST Subject: Ambulatory Reminder Due Date/Time: 10/26/2026 10:34:00 EST Reminder/Recall Repeat colonoscopy in 3 years(2025) due to tubular adeoma Normal [facility] Result Letter Officeon 11-05 Result Letter Office November 05, 2023 STEVE WILLIAMSON [address] [address] : 1965 Below is a summary of [...] letter prior to your next due date. [facility] [phone] Normal [facility] Main OR Intraoperative Recor don 10-30-2023 Main OR Intraoperative Record IntraOp Document Type FT Summary Primary Physician: Cristóbal Lowe MD Finalized Date/Time: 10/30/23 13:16:26 Pt. Name: STEVE WILLIAMSON/Sex: 1965 Male Med Rec #: [id number] Physician: Cristóbal Lowe MD Financial #: [id number] Pt. Type: O Room/Bed: / Admit/Disch: 10/26/23 09:08:34 - 10/26/23 23:59:59 Institution: Case Times FT Entry 1 Patient Times In Room 10/26/23 10:09:00 Out Room 10/26/23 10:27:00 Procedure Times Start 10/26/23 10:13:00 Stop 10/26/23 10:24:00 Anesthesia Times Start 10/26/23 10:09:00 Stop 10/26/23 10:27:00 Time at [facility] 10/26/23 10:18:00 Last Modified By: Maxwell TEE, Pati F 10/26/23 10:25:31 General Comments: 10/30/23 Chart opened to review and send charges LRoth CSFA Case Attendance FT Entry 1 Entry 2 Entry 3 Case Attendee Louis Ramírez RN, Judy Padron Role Performed Anesthesiologist Advertising Sales Agent - Primary Scrub - Primary Engineer Booster And Exhauster Time In 10/26/23 10:09:00 10/26/23 10:09:00 10/26/23 [...] Antibiotic No Time Out Louis Ramírez Given Maxwell Fonseca RN, Rupesh Uriostegui Kirstyn K, Elidia Espinal Sarmini MD, Cristóbal Winkler Time Out Complete 10/26/23 10:10:00 [...] and tissue Entry 1 Skin Integrity Intact, [place], Warm, and Skin Abnormality No Dry Outcomes [...] evaluates the p (more content not included)... [facility] Consenton 10-29-2023 Consent [id number]#1. 00TIFF [facility] Discharge Instructionson Discharge Instructions [id number]#1. 00TIFF Normal [facility] Progress Note-Physicianon Progress Note-Physician Patient: STEVE [...] Screen for colon cancer / SNOMED CT 199747467 / Confirmed Knee pain, left / SNOMED CT 27493099 / Confirmed High cholesterol / SNOMED CT 78255920 / Confirmed High cholesterol / SNOMED CT 82830731 / Confirmed Acute glaucoma / SNOMED CT 31532955 / Confirmed Resolved: Plantar fasciitis / SNOMED CT 158968160 RIGHT FOOT Histories Procedure history: Arthroscopy of knee ([id number]) on 05/07/2019 at 54 Years. Comments: 05/07/2019 13:06 EDT - Bernice Tobias RN Left knee ANKLE FRACTURE. Comments: 03/07/2013 12:53 Lyubov Marquez RN LEFT ANKLE ORIF Social History Social & [...] adequate air exchange. Cardiovascular: Regular rhythm. Plan [place] [employer]esthesiologists (ASA) physical status classification: Class II. Anesthetic Preoperative Plan: Anesthesia General. [facility] Comment on above: Result Comment: Elec tronically Signed By: Marvel Ibarra Jr, DO\.br\Date and Time Signed: 10/28/23 10:10 EST Progress Note-Physician Patient: STEVE WILLIAMSON Age: 58 years Sex: Male : 1965 Associated Diagnoses: None Author: Marvel Ibarra Jr, DO Postoperative Information Postoperative disposition: Postoperative disposition: To PACU. Optimetrix number: Optimetrix number [id number]. Anesthetic utilized: General. Health Status Allergies: Allergic [...] when meets criteria ( To home ). Normal [facility] Comment on above: Result Comment: Elec tronically Signed By: Marvel Ibarra Jr, DO\.gerhard\Date and Time Signed: 10/28/23 10:09 EST Consent for Treatmenton Consent for Treatment [id number]#1.0 0TIFF [facility] Discharge Instructionson Discharge Instructions STEVE WILLIAMSON [...] acetaminophen (Tylenol 325 mg Tab) acetaminophen-hydrocod one (Freeland 325 mg-5 mg oral tablet) ascorbic acid [...] or heavy bleeding Pharmacy Information [facility] Discharge Instructions Discharge Instructions Previously Scheduled Follow-Up Appointments Sunday 11:00 AM EST With: Nadir GARCÍA MD Where: [facility] Comment on above: Result Comment: Elec tronically Signed By: Kelly TEE, Sarah\.gerhard\Date and Time Signed: 10/26/23 10:36 EST Endoscopic [...] Education and Follow-up: Counseled: Patient, Family. Normal [facility] Comment on above: Result Comment: Elec tronically Signed By: Mynor LEVIN, Cristóbal Winkler\.br\Date and Time Signed: 10/26/23 10:32 EST Inpatient Patient Summaryon 10-26-2023 Inpatient Patient Summary [address] [address] [facility] Clinical Discharge Instructions PERSON INFORMATION Name: STEVE WILLIAMSON [facility]#:[id number] PHYSICIANS Admitting Physician: Cristóbal Lowe MD Attending Physician: Cristóbal Loew MD PCP: KRISTI MENA, [facility] Discharge Diagnosis: Colon cancer screening Comment: PATIENT EDUCATION INFORMATION Instructions: Colonoscopy, Care After Surgery Salam (CUSTOM); Diverticulosis MAGR (CUSTOM); Hemorrhoids; Colon Polyps Medication Leaflets: Follow up: With: Address: When: Cristóbal Lowe [address] [place] [address], [address], [place] [phone] Business (1) Comments: office will calll for follow up Type Location Start Finish State [place] New Patient [facility] Mandeep 12/10/2023 11:00 AM 12/10/2023 11:15 AM Confirmed MEDICATION LIST Medications to Continue with No Changes Other Medications acetaminophen (Tylenol 325 mg Tab) 2 Tablets By Mouth as needed as needed for pain. acetaminophen-hydrocod one (Freeland 325 mg-5 mg oral tablet) 1 - [...] Tablets By Mouth every day. Comment: Normal [facility] Main OR PACU I Recordon 12-0 Main OR PACU I Record PACU Phase I Docum ent Type FT Summary Primary Physician: Cristóbal Lowe MD Finalized Date/Time: 10/26/23 12:44:34 Pt. Name: JUANCARLOS WILLIAMSONSANDHYA Perrin/Sex: 1965 Male Med Rec #: [id number] Physician: Cristóbal Lowe MD Financial #: [id number] Pt. Type: O Room/Bed: / Admit/Disch: 10/26/23 [...] By: Sarah Mendoza RN 10/26/23 12:44 Normal [facility] Main OR Preoperative Recordo n 10-26-2023 Main OR Preoperative Record Holding Area Document Type FT Summary Primary Physician: Cristóbal Lowe MD Finalized Date/Time: 10/26/23 09:20:33 Pt. Name: STEVE WILLIAMSON/Sex: 1965 Male Med Rec #: [id number] Physician: Cristóbal Lowe MD Financial #: [id number] Pt. Type: O Room/Bed: / Admit/Disch: 10/26/23 [...] By: Pati Arreola RN 10/26/23 09:20 Normal [facility] Monitor Recordon 10-26-2023 Monitor Record [id number]#1. 00TIFF Normal [facility] Monitor Record [id number]#1. 00TIFF [facility] Outpatient Surgery Discharge Instructionon 10-26-2023 Outpatient Surgery Discharge Instruction [place] [id number] Patient Discharge Instructions PERSON INFORMATION Name: STEVE WILLIAMSON Date of : 1965 Current Date: 10/26/2023 10:36:19 PHYSICIANS Admitting Physician: Cristóbal Lowe MD Discharge Diagnosis: Colon cancer screening STEVE WILLIAMSON [...] THE NEAREST EMERGENCY ROOM OR CALL 911 DORA Garcia GREGORY A, have received the attached patient education materials/instructions and have verbalized understanding: May we do a follow up call? Yes No I was present when discharge instructions were given Patient Signature Date Clinican/Nurse Signature ___ Date Follow up: With: Address: When: Cristóbal Lowe [address] [place] [address], [address], [address] [address] [phone] Business (1) Comments: office will calll for follow up Type Location Start Finish State [place] New Patient [facility] Mandeep 12/10/2023 11:00 AM 12/10/2023 11:15 AM Confirmed Pharmacy Information: [facility] , Mail Order You may receive a survey from [employer] asking you to rate your care experience. Your feedback is important and will help us understand what we do well and how we can improve the quality of care we provide to you, your loved ones and our community. It?s an honor to serve you. Thank you for choosing [facility] HERE ARE THE MEDICATION CHANGES THAT OCCURRED DURING YOUR HOSPITAL STAY Medications to Continue with No Changes Other Medications acetaminophen (Tylenol 325 mg Tab) 2 Tablets By Mouth as needed as needed for pain. acetaminophen-hydrocod one (Freeland 325 mg-5 mg oral tablet) 1 - [...] more than (more content not included)... Normal [facility] Patient Education - Texton 1 12-27-2022 [...] unsweetened, w/added ascorbic acid 1 cup 0.5 [place] 1 cup 0.7 Vegetables Cooked Green beans 1 cup 4.0 Carrots 1/2 cup sliced 2.3 Peas 1 cup 8.8 Potato (baked, with skin) 1 medium potato 3.8 Raw [place] (with peel) 1 cucumber 1.5 Lettuce 1 [...] 8.7 Peanuts 1/2 [facility].9 [facility] (more content not included)... Normal [facility] Insurance Correspondenceon 1 12-15-2022 Insurance Correspondence [id number]#1. 00TIFF [facility] Consent for Procedure/Surger yon 08-29-2023 Consent for Procedure/Surgery [id number]. 00TIFF [facility] Ambulatory Visit Summaryon 1 Ambulatory Visit Summary STEVE WILLIAMSON Selene :1965 Visit Date:08/28/2023 Ambulatory Visit Instructions Your Diagnosis Screen for colon cancer Your Care Team Attending Physician - Freida LECHUGA, Jennifer Morton Primary Care Physician - KRISTI MENA, DELPHINE Referring Physician - ARNOLD MOYA MD This Is Your Medications List Contact prescribing physician if questions or concerns acetaminophen (Tylenol 325 mg Tab) acetaminophen-hydrocod one (Freeland 325 mg-5 mg oral tablet) ascorbic acid [...] if questions or concerns Unchanged acetaminophen-hydrocod one (Freeland 325 mg-5 mg oral tablet) See instructions [...] including vitamins, herbs, eye drops, creams, and qboo-kca-lsmujfr medicines. ? Any problems you or family [...] may incl (more content not included)... Normal [facility] Gastroenterology Office/Clin ic Noteon 08-28-2023 Gastroenterology [...] colon prep. Follow-up With When Contact Information Jennifer Guan CNP Within 1 to 2 weeks Additional Instructions: [...] drop(s), OPTH, Once a day (at bedtime) Freeland 325 mg-5 mg oral tablet, See Instructions, [...] BNT-162b2 vax 02/09/2021 Recorded 2023-08-27: TPV50 Normal [facility] Comment on above: Result Comment: Elec tronically Signed By: Freida LECHUGA, Jennifer Morton\.br\Date and Time Signed: 08/28/23 15:42 EDT Physician Referralon 023 Physician Referral [id number] 0CD:127 Normal [facility] Auto Diffon 08-21-2023 Basophils/100 WBC (Bld) 0.5 % Normal 0.0-2.0 [facility] Comment on above: Order Comment: Order Added by Discern Expert. Performed By: #### 1 2785312, 6218113, 1607928, 779678815, 40579353, 4467208, 6403548, 65081063 ####[facility] [address] [place] [address] Basophils/Leukocytes Auto (Bld) [Pure # fraction] 0.0 E9/L Normal 0.0-0.2 [facility] Comment on above: Order Comment: Order Added by Discern Expert. Performed By: #### 1 1997944, 4609972, 2422980, 358298218, 19519872, 8030517, 3692872, 78920213 ####[facility] [address] [place] [address] Eosinophils/100 WBC (Bld) 2.2 % Normal 0.0-8.0 [facility] Comment on above: Order Comment: Order Added by Discern Expert. Performed By: #### 1 2627227, 4831249, 6570479, 858252611, 94935012, 9506701, 2837415, 17877325 ####[facility] [address] [place] [address] Eosinophils/Leukocytes Auto (Bld) [Pure # fraction] 0.1 E9/L Normal 0.0-0.5 [facility] Comment on above: Order Comment: Order Added by Discern Expert. Performed By: #### 1 3380534, 7193337, 9616341, 821143414, 36216260, 4868352, 6971294, 25304310 ####[facility] [address] [place] [address] Lymphocytes/100 WBC (Bld) 22.9 % Normal 14.0-50.0 [facility] Comment on above: Order Comment: Order Added by Discern Expert. Performed By: #### 1 8034940, 2531235, 7360679, 495675464, 63417065, 3676338, 2604177, 35551632 ####[place] [address] [place] [address] Lymphocytes/Leukocytes Auto (Bld) [Pure # fraction] 1.4 E9/L Normal 1.0-4.0 [facility] Comment on above: Order Comment: Order Added by Discern Expert. Performed By: #### 1 6650988, 2502736, 9798169, 995337522, 82217001, 3459712, 1046191, 69507359 ####[place] [address] [place] [address] Monocytes/100 WBC (Bld) 9.4 % Normal 4.0-14.0 [facility] Comment on above: Order Comment: Order Added by Vee Expert. Performed By: #### 1 3813238, 2846848, 2130719, 831687136, 17442404, 8302886, 9960971, 97472946 ####[address] [address] Monocytes/Leukocytes Auto (Bld) [Pure # fraction] 0.6 E9/L Normal 0.2-1.0 [facility] Comment on above: Order Comment: Order Added by Vee Expert. Performed By: #### 1 7378011, 8831592, 3131500, 351787531, 25440944, 1244669, 0135268, 42493780 ####[place] [address] [place] [address] Neutrophils/100 WBC (Bld) 65.0 % Normal 36.0-75.0 [facility] Comment on above: Order Comment: Order Added by Vee Expert. Performed By: #### 1 6836967, 0029624, 5868927, 992433643, 75579421, 3036419, 6570192, 84822698 ####[address] [address] Neutrophils/Leukocytes Auto (Bld) [Pure # fraction] 3.9 E9/L Normal 2.0-7.5 [facility] Comment on above: Order Comment: Order Added by Discern Expert. Performed By: #### 1 6605193, 0095574, 8752586, 120153851, 11483991, 7089783, 5968576, 04193923 ####[place] [address] [place] [address] CBC w/ Auto Diffon 3 Erythrocyte distribution width (RBC) [Ratio] 12.6 % Normal 10.9-14.2 [facility] Comment on above: Performed By: #### 1 2312061, 5024817, 1418256, 339202848, 85693986, 8784008, 3327118, 10223492 ####[place] [address] [place] [address] Hematocrit (Bld) [Volume fraction] 45.8 % Normal 37.7-49.0 [facility] Comment on above: Performed By: #### 1 2074008, 6283318, 3740535, 024678207, 02488298, 9311638, 9930490, 65247744 ####[place] [address] [place] [address] Hemoglobin (Bld) [Mass/Vol] 16.1 g/dL Normal 13.5-17.5 [facility] Comment on above: Performed By: #### 1 6424170, 1063942, 5123220, 045765823, 64462291, 3659816, 8082854, 41429688 ####[facility] [address] [place] [address] MCH (RBC) [Entitic mass] 32.8 pg Normal 27.0-34.0 [facility] Comment on above: Performed By: #### 1 5738421, 6287027, 2526480, 910463065, 07917978, 4684303, 7993332, 35083375 ####[address] [address] MCHC (RBC) [Mass/Vol] 35.1 g/dL Normal 31.4-36.0 [facility] Comment on above: Performed By: #### 1 0563486, 9280457, 5552273, 279878721, 87908508, 1735863, 3073553, 79208417 ####[facility] [address] [place] [address] MCV (RBC) [Entitic vol] 93.5 fL Normal 80.0-100.0 [facility] Comment on above: Performed By: #### 1 9634329, 4236121, 3596847, 095003280, 63731632, 8150669, 6831642, 20504400 ####[place] [address] [place] 8[address]357 Platelet mean volume (Bld) [Entitic vol] 10.0 fL Normal 6.4-10.8 [facility] Comment on above: Performed By: #### 1 8592904, 1968803, 8017776, 425024601, 32145602, 4064701, 8361804, 89900184 ####[facility] [address] [place] 8[address]357 Platelets (Bld) [#/Vol] 137.0 E9/L Low 150.0-500.0 [facility] Comment on above: Performed By: #### 1 3809664, 8943261, 6242614, 351522210, 94186962, 5427262, 3708972, 15036480 ####[facility] [address] [place] [address] RBC (Bld) [#/Vol] 4.9 E12/L Normal 4.3-5.9 [facility] Comment on above: Performed By: #### 1 0983062, 5040652, 3126192, 970579586, 65367588, 6713761, 9991020, 86648919 ####[facility] [address] [place] [address] WBC corrected for nucl RBC Auto (Bld) [#/Vol] 6.0 E9/L Normal 4.0-11.0 [facility] Comment on above: Performed By: #### 1 2819938, 6989859, 9381826, 030408666, 63097848, 7831432, 0811467, 83583034 ####[facility] [address] [place] [address] CMPon 08-21-2023 Albumin [Mass/Vol] 4.7 g/dL Normal 3.3-5.0 [facility] Comment on above: Performed By: #### 1 6880557, 8144808, 4385535, 979595178, 25976180, 8398852, 3917880, 61128474 ####[place] [address] [place] [address] Albumin/Globulin (S) [Mass conc ratio] 1.7 Normal 1.1-2.2 [facility] Comment on above: Performed By: #### 1 7592729, 3133090, 0559831, 586213830, 55829401, 7324264, 6916703, 02842075 ####[place] [address] [place] [address] ALP [Catalytic activity/Vol] 45 Int._Unit/L Normal 21-98 [facility] Comment on above: Performed By: #### 1 6458991, 0768603, 1359686, 967612224, 21386120, 0731314, 3382845, 51932856 ####[place] [address] [place] [address] ALT No additional P-5'-P [Catalytic activity/Vol] 31 Int._Unit/L Normal 6-46 [facility] Comment on above: Performed By: #### 1 7987700, 7800812, 4210713, 377142824, 66703273, 4938192, 2961707, 40019837 ####[facility] [address] [place] [address] Anion gap [Moles/Vol] 13 mmol/L Normal 6-16 [facility] Comment on above: Performed By: #### 1 9604253, 0174234, 2761581, 288955817, 25529462, 4824029, 1169298, 10997591 ####[facility] [address] [place] [address] AST [Catalytic activity/Vol] 26 Int._Unit/L Normal 5-43 [facility] Comment on above: Performed By: #### 1 7400727, 5496411, 9664212, 999613354, 17378754, 5343533, 0780064, 81767451 ####[facility] [address] [place] [address] Bilirubin [Mass/Vol] 0.6 mg/dL Normal 0.0-1.1 [facility] Comment on above: Performed By: #### 1 9118384, 1537036, 3976330, 205165580, 77252019, 9624643, 3648609, 06520827 ####[place] [address] [place] [address] Calcium [Mass/Vol] 9.9 mg/dL Normal 8.9-11.1 [facility] Comment on above: Performed By: #### 1 8732445, 6018930, 6515261, 559146901, 73727518, 8976093, 9081189, 58217095 ####[place] [address] [place] [address] Chloride [Moles/Vol] 109 mmol/L Normal 101-111 [facility] Comment on above: Performed By: #### 1 1449981, 3884952, 6203508, 265497527, 39460920, 5008348, 9856893, 54773081 ####[facility] [address] [place] [address] CO2 [Moles/Vol] 26 mmol/L Normal 21-31 [facility] Comment on above: Performed By: #### 1 0727191, 7445265, 3965946, 714366585, 72798213, 4714517, 1701234, 80154290 ####[facility] [address] [place] [address] Creatinine [Mass/Vol] 0.9 mg/dL Normal 0.5-1.3 [facility] Comment on above: Performed By: #### 1 9102379, 2321840, 2947419, 398272327, 20357073, 3550656, 9406753, 94010091 ####[facility] [address] [place] [address] Globulin (S) [Mass/Vol] 2.8 g/dL Normal 1.4-4.0 [facility] Comment on above: Performed By: #### 1 7296606, 2454869, 4532283, 307970915, 50837890, 2928015, 1750322, 58932297 ####[facility] [address] [place] [address] Glucose [Mass/Vol] 105 mg/dL Normal 55-199 [facility] Comment on above: Result Comment: If t his glucose result represents a fasting glucose, interpretation should refer to the following reference range: 55-99 mg/dL Performed By: #### 1 0321404, 3249253, 2782091, 203827114, 61039620, 0402527, 8336756, 69174619 ####[facility] [address] [place] [address] Potassium [Moles/Vol] 4.2 mmol/L Normal 3.5-5.3 [facility] Comment on above: Performed By: #### 1 3205711, 6106042, 3228790, 838368355, 18272207, 9614083, 0732432, 30069080 ####[facility] [address] [place] [address] Protein [Mass/Vol] 7.5 g/dL Normal 6.0-7.8 [facility] Comment on above: Performed By: #### 1 1060948, 9388202, 5562219, 820930309, 73034476, 6588605, 7715758, 34493072 ####[facility] [address] [place] [address] Sodium [Moles/Vol] 144 mmol/L Normal 135-145 [facility] Comment on above: Performed By: #### 1 8129981, 4977535, 9604654, 619320092, 95961982, 9798399, 4483578, 55408391 ####[facility] [address] [place] [address] Urea nitrogen [Mass/Vol] 20 mg/dL Normal 5-21 [facility] Comment on above: Performed By: #### 1 9885737, 4436356, 5164956, 707541664, 84166302, 8512107, 9303834, 81383098 ####[facility] [address] [place] [address] Urea nitrogen/Creatinine [Mass ratio] 22 No Units High 10- [facility] Comment on above: Performed By: #### 1 6478044, 0308194, 2138539, 139702315, 08319617, 8155124, 6241334, 35194386 ####[facility] [address] [place] [address] Consent for Treatmenton 10 Consent for Treatment [id number] 0CD:127 Normal [facility] XkiW3ove 08-21-2023 HbA1c (Bld) [Mass fraction] 5.2 % Normal <=5.9 [facility] Comment on above: Performed By: #### 1 2388058, 1165027, 7713493, 992081728, 34365706, 2847047, 2686062, 96526682 ####[facility] [address] [place] [address] Lipid Panelon 08-21-2023 Cholesterol [Mass/Vol] 138 mg/dL Normal 120-200 [facility] Comment on above: Performed By: #### 1 5813928, 5304658, 9911655, 912445223, 02811612, 7786740, 3612601, 60632587 ####[facility] [address] [place] [address] Cholesterol in HDL [Mass/Vol] 39 mg/dL Invalid Interpretation Code [facility] Comment on above: Result Comment: HDL > or equal to 60 mg/dL: Low cardiovascular risk HDL < 40 mg/dL : High cardiovascular risk Performed By: #### 1 5478715, 7875189, 2072496, 051912384, 79436158, 7998796, 8351529, 96806373 ####[facility] [address] [place] [address] Cholesterol in LDL [Mass/Vol] 69 mg/dL Normal <=129 [facility] Comment on above: Performed By: #### 1 5875569, 6961101, 2703937, 490063808, 52279253, 6069734, 4616787, 42949579 ####[facility] [address] [place] [address] Cholesterol in VLDL [Mass/Vol] 19 mg/dL Normal 7-40 [facility] Comment on above: Performed By: #### 1 4809067, 1113961, 9144129, 483451168, 91520833, 1443011, 3225729, 31939445 ####[facility] [address] [place] [address] Triglyceride [Mass/Vol] 97 mg/dL Normal <=149 [facility] Comment on above: Performed By: #### 1 3686035, 4968094, 6944253, 401501602, 77750306, 3984124, 0017938, 46278629 ####[facility] [address] [place] [address] PSA Screen, Totalon 08-21-20 23 Prostate specific Ag [Mass/Vol] 5.4 ng/mL High 0.1-3.5 [facility] Comment on above: Result Comment: The concentration of PSA determined by different manufacturers can vary due to differences in assay methods and reagent specificity. Values obtained from different assay methods cannot be used interchangeably. The methodology used for this result was chemiluminescence using [employer]s Access Hybritech PSA reagent. Performed By: #### 1 1716871, 4068250, 0734456, 686734330, 61328688, 5210496, 7271759, 53322809 ####[facility] [address] [place] [address] Physician Orderon 08-21-2023 Physician Order [id number] CD:127 Normal [facility] TSH With T4fr Reflexon 08-21 TSH Qn 1.19 m[IU]/L Normal 0.34-5.60 [facility] Comment on above: Performed By: #### 1 [id number] ####[facility] [address] [place] [address] eGFRon 08-21-2023 GFR/1.73 sq M.predicted among non-blacks MDRD (S/P/Bld) [Vol rate/Area] 100 mL/min/1.73 m2 Normal >=59 [facility] Comment on above: Order Comment: Order added by Discern Expert. Result Comment: Laborer Tanbark richard kidney disease could be indicated at eGFR's of less than 60 mL/min/1.73m2. Kidney failure is indicated at less than 15 mL/min/1.73m2. Performed By: #### 1 [id number] ####[facility] [address] [place] [address] Reference Laboratory Testing Ordered By: Perla Walton on 08-10-2023 Test Code [id number] Invalid Interpretation Code [facility] SendOutsSS Test Name G6PD Invalid Interpretation Code [facility] SendOutsSS XR Knee - right 4 Viewson Body surface area Derived from formula 2 m2 [facility] [facility] [employer] System Xrays of the right knee demonstrating no acute abnormalities, well preserved articulations. [employer] System X-rays, 4 views of t he right [...] patellofemoral compartment demonstrates no evidence of osteoarthrosis. [employer] [facility] XR Knee - right 4 Viewson Radiology Study observation (narrative) [facility] LOSC Management CHEMISTRYOrdered By: SYSTEM SYSTEM on 03-17-2022 Albumin [...] 1.0 mg/dL Normal 0.5 - 1.3 mg/dL FT Remisol GFR/1.73 sq M.predicted among blacks MDRD (S/P/Bld) [Vol rate/Area] mL/min/1.73 m2 Normal >=59mL/min/ 1.73 m2 FT Chem S GFR/1.73 sq M.predicted among non-blacks MDRD (S/P/Bld) [Vol rate/Area] mL/min/1.73 m2 Normal >=59mL/min/ 1.73 m2 [facility] Chem S Globulin (S) [Mass/Vol] 2.9 g/dL Normal 1.4 - 4.0 gm/dL FT Remisol Glucose [Mass/Vol] 92 mg/dL Normal 55 - 199 mg/dL FT Remisol Potassium [Moles/Vol] 4.1 mmol/L Normal 3.5 - 5.3 mmol/L FT Remisol Prostate specific Ag [Mass/Vol] 4.6 ng/mL High 0.1 - 3.5 ng/mL FT Remisol Protein [Mass/Vol] 7.9 g/dL High 6.0 - 7.8 gm/dL FT [facility]isol Sodium [Moles/Vol] 137 mmol/L Normal 135 - 145 mmol/L FT Remisol Triglyceride [Mass/Vol] 81 mg/dL Normal <=149mg/dL F [facility] Remisol TSH Qn 1.19 m[IU]/L Normal 0.34 - 5.60 mcIU/mL FT Remisol Urea nitrogen [Mass/Vol] 22 mg/dL High 5 - 21 mg/dL FT Remisol Urea nitrogen/Creatinine [Mass ratio] 22 mg/mg High 10 - 20 [facility] Remisol CHEMISTRYOrdered By: Peyton Miguel on 03-17-2022 HbA1c (Bld) [Mass fraction] 5.3 % Normal <=5.9% [facility] ChemAutoSS HEMATOLOGYOrdered By: SYSTEM SYSTEM on 03-17-2022 Basophils/100 WBC (Bld) 0.4 % Normal 0.0 - 2.0 % [facility] HemeAutoSS Basophils/Leukocytes Auto (Bld) [Pure # fraction] [...] 16.5 g/dL Normal 13.5 - 17.5 gm/dL FT HemeAutoSS MCH (RBC) [Entitic mass] 32.6 pg [...] 5.1 E12/L Normal 4.3 - 5.9 E12/L [facility] HemeAutoSS WBC corrected for nucl RBC Auto (Bld) [#/Vol] 7.0 E9/L Normal 4.0 - 11.0 E9/L [facility] HemeAutoSS POCT OCCULT BLOOD STOOLon Hemoglobin.gastrointesti nal Ql (Stl) Negative [facility] Interpretation and review of laboratory results Normal [facility] POCT OCCULT BLOOD STOOLon Hemoglobin.gastrointesti nal Ql (St) Negative [facility] Interpretation and review of laboratory results Normal [facility] Vital Signs Date Time Vital Sign Value Performing Clinician Facility 08-21-2024 13:06-0400 Body height 175.3 cm Wilda Sebastian APRN-HOME PLANNING CONSULTANT SALESPERSON Work Phone: [facility] 08-21-2024 13:06-0400 Body mass index (BMI) [Ratio] 26.67 kg/m2 Wilda Jaz BARAHONAN-HOME PLANNING CONSULTANT SALESPERSON Work Phone: [facility] 08-21-2024 13:06-0400 Body temperature 97.59 [degF] Wilda Jaz VEGETABLE SPECKER-HOME PLANNING CONSULTANT SALESPERSON Work Phone: [facility] 08-21-2024 13:06-0400 Body weight 81.92 kg Wilda Jaz VEGETABLE SPECKER-HOME PLANNING CONSULTANT SALESPERSON Work Phone: [facility] 08-21-2024 13:06-0400 Diastolic blood pressure 74 mm[Hg] Wilda Sebastian VEGETABLE SPECKER-HOME PLANNING CONSULTANT SALESPERSON Work Phone: [facility] 08-21-2024 13:06-0400 Heart rate 68 /min Wilda Jaz VEGETABLE SPECKER-HOME PLANNING CONSULTANT SALESPERSON Work Phone: [facility] 08-21-2024 13:06-0400 Respiratory rate 18 /min Wilda Jaz VEGETABLE SPECKER-HOME PLANNING CONSULTANT SALESPERSON Work Phone: [facility] 08-21-2024 13:06-0400 SaO2% (BldA) [Mass fraction] 97 % Wildaeligio Sebastian VEGETABLE SPECKER-HOME PLANNING CONSULTANT SALESPERSON Work Phone: [facility] 08-21-2024 13:06-0400 Systolic blood pressure 118 mm[Hg] Wilda Sebastian VEGETABLE SPECKER-HOME PLANNING CONSULTANT SALESPERSON Work Phone: [facility] 03-17-2024 12:54-0400 Blood Pressure Location Nadir GARCÍA [facility] 03-17-2024 12:54-0400 Body temperature 98.6 [degF] Nadir GARCÍA [facility] 03-17-2024 12:54-0400 Diastolic blood pressure 78 mm[Hg] Nadir GARCÍA [facility] 03-17-2024 12:54-0400 Heart rate 98 /min Nadir GARCAÍ [facility] 03-17-2024 12:54-0400 Systolic blood pressure 118 mm[Hg] Nadir GARCÍA [facility] 03-12-2024 11:34-0400 Body height 175.3 cm Delphine Berry VEGETABLE SPECKER-HOME PLANNING CONSULTANT SALESPERSON Work Phone: [facility] 03-12-2024 11:34-0400 Body mass index (BMI) [Ratio] 28.97 kg/m2 Delphine Ramosk VEGETABLE SPECKER-HOME PLANNING CONSULTANT SALESPERSON Work Phone: [facility] 03-12-2024 11:34-0400 Body temperature 98.1 [degF] Delphine Zimmermanchik VEGETABLE SPECKER-HOME PLANNING CONSULTANT SALESPERSON Work Phone: [facility] 03-12-2024 11:34-0400 Body weight 89 kg Delphine Gonzalesubachik VEGETABLE SPECKER-HOME PLANNING CONSULTANT SALESPERSON Work Phone: [facility] 03-12-2024 11:34-0400 Diastolic blood pressure 64 mm[Hg] Delphine Trubachik VEGETABLE SPECKER-HOME PLANNING CONSULTANT SALESPERSON Work Phone: [facility] 03-12-2024 11:34-0400 Heart rate 73 /min Delphine Berry VEGETABLE SPECKER-HOME PLANNING CONSULTANT SALESPERSON Work Phone: [facility] 03-12-2024 11:34-0400 Respiratory rate 18 /min Delphine Berry VEGETABLE SPECKER-HOME PLANNING CONSULTANT SALESPERSON Work Phone: [facility] 03-12-2024 11:34-0400 SaO2% (BldA) [Mass fraction] 97 % Delphine Berry VEGETABLE SPECKER-HOME PLANNING CONSULTANT SALESPERSON Work Phone: [facility] 03-12-2024 11:34-0400 Systolic blood pressure 104 mm[Hg] Delphine Berry APRN-HOME PLANNING CONSULTANT SALESPERSON Work Phone: [facility] 03-10-2024 13:31-0400 Body height 176.53 cm [facility] 03-10-2024 13:31-0400 Body mass index (BMI) [Ratio] 27.6 kg/m2 [facility] 03-10-2024 13:31-0400 Body temperature 97.1 [degF] [facility] 03-10-2024 13:31-0400 Body weight 86.18 kg [facility] 03-10-2024 13:31-0400 Diastolic blood pressure 76 mm[Hg] [facility] 03-10-2024 13:31-0400 Heart rate 76 /min [facility] 03-10-2024 13:31-0400 Systolic blood pressure 112 mm[Hg] [facility] 02-11-2024 13:04-0400 Body height 175.3 cm Delphine Berry VEGETABLE SPECKER-HOME PLANNING CONSULTANT SALESPERSON Work Phone: [facility] 02-11-2024 13:04-0400 Body mass index (BMI) [Ratio] 28.12 kg/m2 Delphine Berry VEGETABLE SPECKER-HOME PLANNING CONSULTANT SALESPERSON Work Phone: [facility] 02-11-2024 13:04-0400 Body temperature 98.2 [degF] Delphine Berry VEGETABLE SPECKER-HOME PLANNING CONSULTANT SALESPERSON Work Phone: [facility] 02-11-2024 13:04-0400 Body weight 86.36 kg Delphine Berry APRN-HOME PLANNING CONSULTANT SALESPERSON Work Phone: [facility] 02-11-2024 13:04-0400 Diastolic blood pressure 70 mm[Hg] Delphine Berry VEGETABLE SPECKER-HOME PLANNING CONSULTANT SALESPERSON Work Phone: [facility] 02-11-2024 13:04-0400 Heart rate 79 /min Delphine Berry VEGETABLE SPECKER-HOME PLANNING CONSULTANT SALESPERSON Work Phone: [facility] 02-11-2024 13:04-0400 Respiratory rate 18 /min Delphine Berry VEGETABLE SPECKER-HOME PLANNING CONSULTANT SALESPERSON Work Phone: [facility] 02-11-2024 13:04-0400 SaO2% (BldA) [Mass fraction] 97 % Delphine Berry APRN-HOME PLANNING CONSULTANT SALESPERSON Work Phone: [facility] 02-11-2024 13:04-0400 Systolic blood pressure 124 mm[Hg] Delphine Berry APRN-HOME PLANNING CONSULTANT SALESPERSON Work Phone: [facility] 01-29-2024 14:25-0400 [facility] 01-29-2024 14:25-0400 Promise to Return [facility] 01-29-2024 14:00-0400 Blood Pressure Location [facility] 01-29-2024 14:00-0400 Diastolic blood pressure 74 mm[Hg] [facility] 01-29-2024 14:00-0400 Heart rate 56 /min [facility] 01-29-2024 14:00-0400 Mean blood pressure 93 mm[Hg] [facility] 01-29-2024 14:00-0400 Respiratory rate 18 /min [facility] 01-29-2024 14:00-0400 Systolic blood pressure 130 mm[Hg] [facility] 01-29-2024 13:45-0400 Hourly Rounding [facility] 01-29-2024 13:45-0400 Promise to Return [facility] 01-29-2024 12:15-0400 Hourly Rounding [facility] 01-29-2024 12:15-0400 [facility] 01-29-2024 11:47-0400 Heart rate 66 /min [facility] 01-29-2024 11:47-0400 SaO2% (BldA) [Mass fraction] 95 % [facility] 01-29-2024 11:47-0400 Diastolic blood pressure 77 mm[Hg] [facility] 01-29-2024 11:47-0400 Mean blood pressure 95 mm[Hg] [facility] 01-29-2024 11:47-0400 Systolic blood pressure 131 mm[Hg] [facility] 01-29-2024 11:46-0400 Body temperature 97.7 [degF] [facility] 01-29-2024 08:37-0400 SaO2% (BldA) [Mass fraction] 96 % [facility] 01-29-2024 07:29-0400 Heart rate 52 /min [facility] 01-29-2024 07:29-0400 SaO2% (BldA) [Mass fraction] 96 % [facility] 01-29-2024 07:28-0400 Body temperature 98.06 [degF] [facility] 01-29-2024 07:28-0400 Diastolic blood pressure 79 mm[Hg] [facility] 01-29-2024 07:28-0400 Mean blood pressure 97 mm[Hg] [facility] 01-29-[facility]24 07:28-0400 Systolic blood pressure 135 mm[Hg] [facility]-28-[facility]24 20:14-0400 Mean blood pressure 92 mm[Hg] [facility] 01-28-2024 19:15-0400 Respiratory rate 18 /min [facility] 01-28-2024 02:10-0400 [facility] 01-28-2024 02:10-0400 Mean blood pressure 90 mm[Hg] [facility] 01-28-2024 02:10-0400 Respiratory rate 18 /min [facility] 01-26-2024 04:00-0500 Mean blood pressure 74 mm[Hg] [facility] 01-26-2024 00:11-0500 Heart rate 85 /min [facility] 01-25-2024 21:48-0500 [facility] 01-25-2024 21:48-0500 Heart rate 84 /min [facility] 01-25-2024 15:43-0500 Respiratory rate 17 /min [facility] 01-25-2024 13:54-0500 Heart rate 88 /min [facility] 01-18-2024 11:24-0500 Blood Pressure Location Nadir GARCÍA [facility] 01-18-2024 11:24-0500 Diastolic blood pressure 70 mm[Hg] Nadir GARCÍA [facility] 01-18-2024 11:24-0500 Heart rate 68 /min Nadir GARCÍA [facility] 01-18-2024 11:24-0500 Respiratory rate 16 /min Nadir GARCÍA [facility] 01-18-2024 11:24-0500 Systolic blood pressure 116 mm[Hg] Nadri GARCÍA [facility] 01-10-2024 11:00-0500 Diastolic blood pressure 70 mm[Hg] Amauri Tran [facility] 01-10-2024 11:00-0500 Heart rate 65 /min Amauri Tran [facility] 01-10-2024 11:00-0500 Mean blood pressure 81 mm[Hg] Amauri Tran [facility] 01-10-2024 11:00-0500 SaO2% (BldA) [Mass fraction] 96 % Amauri Tran [facility] 01-10-2024 11:00-0500 Systolic blood pressure 102 mm[Hg] Amauri Tran [facility] 01-10-2024 10:30-0500 Diastolic blood pressure 71 mm[Hg] Amauri Tran [facility] 01-10-2024 10:30-0500 Heart rate 63 /min Amauri Marc [facility] 01-10-2024 10:30-0500 Mean blood pressure 83 mm[Hg] Amauri Tran [facility] 01-10-2024 10:30-0500 Respiratory rate 17 /min Amauri Marc [facility] 01-10-2024 10:30-0500 SaO2% (BldA) [Mass fraction] 95 % Amauri Tran [facility] 01-10-2024 10:30-0500 Systolic blood pressure 108 mm[Hg] Amauri Tran [facility] 01-10-2024 09:58-0500 Body temperature 98.96 [degF] Amauri Tran [facility] 01-10-2024 09:58-0500 Diastolic blood pressure 84 mm[Hg] Amauri Tran [facility] 01-10-2024 09:58-0500 Heart rate 67 /min Amauri Tran [facility] 01-10-2024 09:58-0500 SaO2% (BldA) [Mass fraction] 98 % Amauri Tran [facility] 01-10-2024 09:58-0500 Systolic blood pressure 130 mm[Hg] Amauri Amrc [facility] 01-07-2024 11:00-0500 Blood Pressure Location Rod Nixrowena [facility] 01-07-2024 11:00-0500 Body temperature 98.24 [degF] Rod Brown [facility] 01-07-2024 11:00-0500 Diastolic blood pressure 78 mm[Hg] Rod Paster [facility] 01-07-2024 11:00-0500 Heart rate 99 /min Rod Paster [facility] 01-07-2024 11:00-0500 Hourly Rounding Rod Brown [facility] 01-07-2024 11:00-0500 Mean blood pressure 93 mm[Hg] Rod Paster [facility] 01-07-2024 11:00-0500 Respiratory rate 18 /min Rod Paster [facility] 01-07-2024 11:00-0500 SaO2% (BldA) [Mass fraction] 98 % Rod Paster [facility] 01-07-2024 11:00-0500 Systolic blood pressure 122 mm[Hg] Rod Paster [facility] 01-07-2024 10:27-0500 Hourly Rounding Rod Paster [facility] 01-07-2024 10:27-0500 Promise to Return Rod Paster [facility] 01-07-2024 09:04-0500 Hourly Rounding Rod Paster [facility] 01-07-2024 09:04-0500 Promise to Return Rod Paster [facility] 01-07-2024 08:24-0500 Promise to Return Rod Paster [facility] 01-07-2024 08:00-0500 Diastolic blood pressure 85 mm[Hg] Rod Paster [facility] 01-07-2024 08:00-0500 Heart rate 65 /min Rod Paster [facility] 01-07-2024 08:00-0500 Mean blood pressure 101 mm[Hg] Rod Paster [facility] 01-07-2024 08:00-0500 SaO2% (BldA) [Mass fraction] 99 % Rod Paster [facility] 01-07-2024 08:00-0500 Systolic blood pressure 133 mm[Hg] Rod Paster [facility] 01-07-2024 00:20-0500 Body temperature 97.88 [degF] Rod Paster [facility] 01-07-2024 00:20-0500 Diastolic blood pressure 66 mm[Hg] Rod Paster [facility] 01-07-2024 00:20-0500 Heart rate 61 /min Rod Paster [facility] 01-07-2024 00:20-0500 SaO2% (BldA) [Mass fraction] 98 % Rod Paster [facility] 01-07-2024 00:20-0500 Systolic blood pressure 118 mm[Hg] Rod Paster [facility] 01-06-2024 19:55-0500 Mean blood pressure 86 mm[Hg] Rod Paster [facility] 01-06-2024 16:48-0500 Respiratory rate 18 /min Rod Paster [facility] 01-06-2024 16:47-0500 Mean blood pressure 89 mm[Hg] Rod Paster [facility] 01-06-2024 11:47-0500 Mean blood pressure 86 mm[Hg] Rod Paster [facility] 01-05-2024 04:00-0500 Blood Pressure Location Rod Paster [facility] 01-05-2024 04:00-0500 Mean blood pressure 81 mm[Hg] Rod Paster [facility] 01-05-2024 04:00-0500 Respiratory rate 16 /min Rod Paster [facility] 01-04-2024 18:40-0500 Heart rate 74 /min Rod Paster [facility] 01-04-2024 18:13-0500 Respiratory rate 18 /min Rod Paster [facility] 01-04-2024 15:57-0500 Heart rate 91 /min Rod Brown [facility] 12-10-2023 11:56-0500 Blood Pressure Location Nadir GARCÍA [facility] 12-10-2023 11:56-0500 Diastolic blood pressure 79 mm[Hg] Nadir GARCÍA [facility] 12-10-2023 11:56-0500 Heart rate 62 /min Nadir GARCÍA [facility] 12-10-2023 11:56-0500 Respiratory rate 16 /min Nadir GARCÍA [facility] 12-10-2023 11:56-0500 Systolic blood pressure 125 mm[Hg] Nadir GARCÍA [facility] 10-26-2023 10:55-0500 Diastolic blood pressure 81 mm[Hg] Ambrocio Sarmini [facility] 10-26-2023 10:55-0500 Heart rate 58 /min Ambrocio Sarmini [facility] 10-26-2023 10:55-0500 Respiratory rate 16 /min Ambrocio Sarmini [facility] 10-26-2023 10:55-0500 SaO2% (BldA) [Mass fraction] 94 % Ambrocio Sarmini [facility] 10-26-2023 10:55-0500 Systolic blood pressure 119 mm[Hg] Ambrocio Sarmini [facility] 10-26-2023 10:40-0500 Diastolic blood pressure 75 mm[Hg] Ambrocio Sarmini [facility] 10-26-2023 10:40-0500 Heart rate 58 /min Ambrocio Sarmini [facility] 10-26-2023 10:40-0500 Respiratory rate 16 /min Ambrocio Sarmini [facility] 10-26-2023 10:40-0500 SaO2% (BldA) [Mass fraction] 94 % Ambrocio Sarmini [facility] 10-26-2023 10:40-0500 Systolic blood pressure 108 mm[Hg] Ambrocio Sarmini [facility] 10-26-2023 10:35-0500 Diastolic blood pressure 74 mm[Hg] Ambrocio Sarmini [facility] 10-26-2023 10:35-0500 Heart rate 67 /min Ambrocio Sarmini [facility] 10-26-2023 10:35-0500 Respiratory rate 16 /min Ambrocio Sarmini [facility] 10-26-2023 10:35-0500 SaO2% (BldA) [Mass fraction] 94 % Ambrocoi Sarmini [facility] 10-26-2023 10:35-0500 Systolic blood pressure 109 mm[Hg] Ambrocio Sarmini [facility] 10-26-2023 10:30-0500 Body temperature 97.16 [degF] Ambrocio Sarmini [facility] 10-26-2023 10:09-0500 Respiratory rate 12 /min Ambrocio Sarmini [facility] 10-26-2023 09:28-0500 Blood Pressure Location Cristóbal Lowe [facility] 10-26-2023 09:28-0500 Body temperature 98.06 [degF] Cristóbal Lowe [facility] 08-21-2023 14:05-0400 Body height 175.3 cm Delphine Berry VEGETABLE SPECKER-HOME PLANNING CONSULTANT SALESPERSON Work Phone: [facility] 08-21-2023 14:05-0400 Body mass index (BMI) [Ratio] 25.78 kg/m2 Delphine Berry VEGETABLE SPECKER-HOME PLANNING CONSULTANT SALESPERSON [facility] 08-21-2023 14:05-0400 Body temperature 98.29 [degF] Delphine Berry VEGETABLE SPECKER-HOME PLANNING CONSULTANT SALESPERSON Work Phone: [employer] [facility] 08-21-2023 14:05-0400 Body weight 79.2 kg Delphine Berry VEGETABLE SPECKER-HOME PLANNING CONSULTANT SALESPERSON Work Phone: [employer] [facility] 08-21-2023 14:05-0400 Diastolic blood pressure 76 mm[Hg] Delphine Berry VEGETABLE SPECKER-HOME PLANNING CONSULTANT SALESPERSON Work Phone: [employer] [facility] 08-21-2023 14:05-0400 Heart rate 76 /min Delphine Berry VEGETABLE SPECKER-HOME PLANNING CONSULTANT SALESPERSON Work Phone: [facility] 08-21-2023 14:05-0400 Respiratory rate 18 /min Delphine Berry VEGETABLE SPECKER-HOME PLANNING CONSULTANT SALESPERSON Work Phone: [employer] [facility] 08-21-2023 14:05-0400 SaO2% (BldA) [Mass fraction] 96 % Delphine Berry VEGETABLE SPECKER-HOME PLANNING CONSULTANT SALESPERSON Work Phone: [employer] [facility] 08-21-2023 14:05-0400 Systolic blood pressure 118 mm[Hg] Delphine Berry VEGETABLE SPECKER-HOME PLANNING CONSULTANT SALESPERSON Work Phone: [facility] 08-15-2022 08:43-0400 Body height 175.3 cm Earle Henderson MD Work Phone: [facility] 08-15-2022 08:43-0400 Body mass index (BMI) [Ratio] 27.31 kg/m2 Earle Henderson MD Work Phone: [facility] 08-15-2022 08:43-0400 Body weight 83.9 kg Earle Henderson MD Work Phone: [facility] 08-15-2022 08:43-0400 Respiratory rate 18 /min Earle Henderson MD Work Phone: [facility] 06-23-2022 07:55-0400 Body height 175.3 cm Earle Henderson MD Work Phone: [facility] 06-23-2022 07:55-0400 Body mass index (BMI) [Ratio] 27.32 kg/m2 Earle Henderson MD Work Phone: [facility] 06-23-2022 07:55-0400 Body weight 83.92 kg Earle Henderson MD Work Phone: [facility] 03-31-2022 13:16-0400 Body height 176.5 cm Delphine Trubachik VEGETABLE SPECKER-HOME PLANNING CONSULTANT SALESPERSON Work Phone: [facility] 03-31-2022 13:16-0400 Body mass index (BMI) [Ratio] 27.31 kg/m2 Delphine Trubachik VEGETABLE SPECKER-HOME PLANNING CONSULTANT SALESPERSON Work Phone: [facility] 03-31-2022 13:16-0400 Body temperature 98.1 [degF] Delphine Trubachik VEGETABLE SPECKER-HOME PLANNING CONSULTANT SALESPERSON Work Phone: [facility] 03-31-2022 13:16-0400 Body weight 85.09 kg Delphine Trubachik VEGETABLE SPECKER-HOME PLANNING CONSULTANT SALESPERSON Work Phone: [facility] 03-31-2022 13:16-0400 Diastolic blood pressure 72 mm[Hg] Delphine Trubachik VEGETABLE SPECKER-HOME PLANNING CONSULTANT SALESPERSON Work Phone: [facility] 03-31-2022 13:16-0400 Heart rate 82 /min Delphine Berry VEGETABLE SPECKER-HOME PLANNING CONSULTANT SALESPERSON Work Phone: [facility] 03-31-2022 13:16-0400 Respiratory rate 18 /min Delphine Berry VEGETABLE SPECKER-HOME PLANNING CONSULTANT SALESPERSON Work Phone: [facility] 03-31-2022 13:16-0400 SaO2% (BldA) [Mass fraction] 96 % Delphine Berry VEGETABLE SPECKER-HOME PLANNING CONSULTANT SALESPERSON Work Phone: [facility] 03-31-2022 13:16-0400 Systolic blood pressure 120 mm[Hg] Delphine Berry VEGETABLE SPECKER-HOME PLANNING CONSULTANT SALESPERSON Work Phone: [facility] 04-12-2021 07:10-0400 Body height 175.3 cm Delphine Berry VEGETABLE SPECKER-HOME PLANNING CONSULTANT SALESPERSON Work Phone: [facility] 04-12-2021 07:10-0400 Body mass index (BMI) [Ratio] 28 kg/m2 Delphine Berry VEGETABLE SPECKER-HOME PLANNING CONSULTANT SALESPERSON Work Phone: [facility] 04-12-2021 07:10-0400 Body temperature 97.81 [degF] Delphine Berry VEGETABLE SPECKER-HOME PLANNING CONSULTANT SALESPERSON Work Phone: [facility] 04-12-2021 07:10-0400 Body weight 86 kg Delphine Berry VEGETABLE SPECKER-HOME PLANNING CONSULTANT SALESPERSON Work Phone: [facility] 04-12-2021 07:10-0400 Diastolic blood pressure 80 mm[Hg] Delphine Berry VEGETABLE SPECKER-HOME PLANNING CONSULTANT SALESPERSON Work Phone: [facility] 04-12-2021 07:10-0400 Heart rate 59 /min Delphine Berry VEGETABLE SPECKER-HOME PLANNING CONSULTANT SALESPERSON Work Phone: [facility] 04-12-2021 07:10-0400 Respiratory rate 18 /min Delphine Berry VEGETABLE SPECKER-HOME PLANNING CONSULTANT SALESPERSON Work Phone: [facility] 04-12-2021 07:10-0400 SaO2% (BldA) [Mass fraction] 97 % Delphine Kristi VEGETABLE SPECKER-HOME PLANNING CONSULTANT SALESPERSON Work Phone: [facility] 04-12-2021 07:10-0400 Systolic blood pressure 120 mm[Hg] [facility] Kristi VEGETABLE SPECKER-HOME PLANNING CONSULTANT SALESPERSON Work Phone: [facility] 2021 08:04-0500 BMI (Body Mass Index) 25.64 kg/m2 [facility] 2021 08:04-0500 Body Temperature 98.1 [degF] [facility] 2021 08:04-0500 Body weight 79.89 kg [facility] 2021 08:04-0500 BP Diastolic 72 mm[Hg] [facility] 2021 08:04-0500 BP Systolic 122 mm[Hg] [facility] 2021 08:04-0500 Height 176.5 cm [facility] 2021 08:04-0500 Pulse (Heart Rate) 56 /min [facility] 2021 08:04-0500 Pulse Oximetry 97 % [facility] 2021 08:04-0500 Respiratory Rate 18 /min [facility] 01-30-2020 11:03-0400 BMI (Body Mass Index) 25.82 kg/m2 [facility] 01-30-2020 11:03-0400 Body Temperature 98.2 [degF] [facility] 01-30-2020 11:03-0400 Body weight 80.47 kg [facility] 01-30-2020 11:03-0400 BP Diastolic 72 mm[Hg] [facility] 01-30-2020 11:03-0400 BP Systolic 116 mm[Hg] [facility] 01-30-2020 11:03-0400 Height 176.5 cm [facility] 01-30-2020 11:03-0400 Pulse (Heart Rate) 64 /min [facility] 01-30-2020 11:03-0400 Pulse Oximetry 98 % [facility] 01-30-2020 11:03-0400 Respiratory Rate 18 /min [facility] 01-23-2020 14:00-0500 BMI (Body Mass Index) 26.49 kg/m2 [facility] 01-23-2020 14:00-0500 Body Temperature 98.4 [degF] [facility] 01-23-2020 14:00-0500 Body weight 82.56 kg [facility] 01-23-2020 14:00-0500 BP Diastolic 74 mm[Hg] [facility] 01-23-2020 14:00-0500 BP Systolic 120 mm[Hg] [facility] 01-23-2020 14:00-0500 Height 176.5 cm [facility] 01-23-2020 14:00-0500 Pulse (Heart Rate) 73 /min [facility] 01-23-2020 14:00-0500 Pulse Oximetry 98 % [facility] 01-23-2020 14:00-0500 Respiratory Rate 20 /min [facility] 12-26-2019 14:30-0500 BMI (Body Mass Index) 26.23 kg/m2 [facility] 12-26-2019 14:30-0500 Body Temperature 98.29 [degF] [facility] 12-26-2019 14:30-0500 Body weight 81.74 kg [facility] 12-26-2019 14:30-0500 BP Diastolic 66 mm[Hg] [facility] 12-26-2019 14:30-0500 BP Systolic 104 mm[Hg] [facility] 12-26-2019 14:30-0500 Height 176.5 cm [facility] 12-26-2019 14:30-0500 Pulse (Heart Rate) 71 /min [facility] 12-26-2019 14:30-0500 Pulse Oximetry 95 % [facility] 12-26-2019 14:30-0500 Respiratory Rate 20 /min [facility] 03-17-2019 14:05-0400 BMI (Body Mass Index) 25.68 kg/m2 [facility] 03-17-2019 14:05-0400 Body Temperature 98.8 [degF] [facility] 03-17-2019 14:05-0400 BP Diastolic 64 mm[Hg] [facility] 03-17-2019 14:05-0400 BP Systolic 106 mm[Hg] [facility] 03-17-2019 14:05-0400 Height 177.8 cm [facility] 03-17-2019 14:05-0400 Pulse (Heart Rate) 66 /min [facility] 03-17-2019 14:05-0400 Pulse Oximetry 98 % [facility] 03-17-2019 14:05-0400 Respiratory Rate 20 /min [facility] 03-17-2019 14:05-0400 Weight 81.19 kg [facility] 01-03-2019 15:04-0500 BMI (Body Mass Index) 24.25 kg/m2 [facility] 01-03-2019 15:04-0500 Body Temperature 97.81 [degF] [facility] 01-03-2019 15:04-0500 BP Diastolic 76 mm[Hg] [facility] 01-03-2019 15:04-0500 BP Systolic 120 mm[Hg] [facility] 01-03-2019 15:04-0500 Height 177.8 cm [facility] 01-03-2019 15:04-0500 Pulse (Heart Rate) 56 /min [facility] 01-03-2019 15:04-0500 Pulse Oximetry 98 % [facility] 01-03-2019 15:04-0500 Respiratory Rate 16 /min [facility] 01-03-2019 15:04-0500 Weight 76.66 kg [facility] Encounters Encounter Date Encounter Type Care Provider Facility Start: 12-29-2024 [facility] Start: 08-21-2024 End: 08-21-2024 Patient encounter status Wilda Smith Jaz VEGETABLE SPECKER-HOME PLANNING CONSULTANT SALESPERSON Work Phone: [facility] Work Phone: Start: 08-21-2024 End: 08-21-2024 Periodic preventive med est patient 40-64yrs Wilda Sarah Sebastian VEGETABLE SPECKER-HOME PLANNING CONSULTANT SALESPERSON Work Phone: [facility] Comment on above: Encounter for well a dult exam with abnormal findings (Primary Dx); Elevated PSA Start: 08-21-2024 ambulatory SELF SELF [facility] Start: 08-21-2024 Encounter for genera l adult medical examination with abnormal findings [facility] Start: 08-19-2024 End: 08-19-2024 ambulatory WILDA SEBASTIAN Facility:[facility] Start: 08-19-2024 End: 08-19-2024 Patient encounter procedure WILDA SEBASTIAN [facility] Start: 04-30-2024 End: 04-30-2024 ambulatory PATRICK KLEIN Facility:[facility] Start: 04-30-2024 End: 04-30-2024 Patient encounter procedure PATRICK KLEIN [facility] Start: 03-17-2024 End: 03-17-2024 ambulatory Nadir GARCÍA Facility:[facility] Start: 03-17-2024 End: 03-17-2024 Patient encounter procedure Nadir GARCÍA [facility] Start: 03-12-2024 End: 03-12-2024 Office outpatient visit 25 minutes Delphine Berry VEGETABLE SPECKER-HOME PLANNING CONSULTANT SALESPERSON Work Phone: [facility] Comment on above: Acute on chronic pro statitis (Primary Dx) Start: 03-12-2024 ambulatory [facility] Start: 03-10-2024 End: 03-10-2024 ambulatory [facility] Work Phone: Start: 03-10-2024 End: 03-10-2024 Patient encounter procedure [facility] Infectious Disease Work Phone: Start: 02-11-2024 ambulatory SELF SELF [facility] Start: 02-11-2024 End: 02-11-2024 Office outpatient visit 40 minutes Delphine Berry VEGETABLE SPECKER-HOME PLANNING CONSULTANT SALESPERSON Work Phone: [facility] Comment on above: History of UTI (Prim gloria Dx); Acute on chronic prostatitis; Sepsis without acute organ dysfunction, due to unspecified organism; Chest pain, unspecified type; Chest tightness; Shortness of breath; Other eczema Start: 01-25-2024 End: 01-29-2024 Evaluation and management of inpatient Rod Brown Facility:[facility] Start: 01-25-2024 End: 01-29-2024 Evaluation and management of inpatient Louisa Soriano [facility] Start: 01-18-2024 End: 01-18-2024 ambulatory Nadir GARCÍA Facility:[facility] Start: 01-18-2024 End: 01-18-2024 Patient encounter procedure Nadir GARCÍA [facility] Start: 01-10-2024 End: 01-10-2024 Emergency department patient visit Amauri Tran [facility] Start: 01-04-2024 End: 01-07-2024 Evaluation and management of inpatient Marvel Patel Facility:[facility] Start: 01-04-2024 End: 01-07-2024 Evaluation and management of inpatient Rod DaileyBrandy Brown [facility] Start: 01-01-2024 End: 01-01-2024 ambulatory Nadir GARCÍA Facility:[facility] Start: 01-01-2024 End: 01-01-2024 Patient encounter procedure Nadir GARCÍA [facility] Start: 12-10-2023 End: 12-10-2023 ambulatory DELPHINE TRUBACHIK Facility: [facility] Start: 12-10-2023 End: 12-10-2023 Patient encounter procedure Nadir GARCÍA [facility] Start: 10-26-2023 End: 10-26-2023 ambulatory DELPHINE TRUBACHIK Facility:[facility] Start: 10-26-2023 End: 10-26-2023 Patient encounter procedure Ambrocioyamilex Lowe [facility] Start: 10-01-2023 ambulatory DELPHINE TRUBACHIK Facilit y:[facility] Start: 08-29-2023 ambulatory DELPHINE TRUBACHIK Facilit y:[facility] [place] Start: 08-28-2023 End: 08-28-2023 ambulatory DELPHINE TRUBACHIK [facility] Start: 08-23-2023 ambulatory DELPHINE TRUBACHIK Facilit y:Mauricio Start: 08-21-2023 End: 08-21-2023 Patient encounter status Delphine A Elsiechik VEGETABLE SPECKER-HOME PLANNING CONSULTANT SALESPERSON Work Phone: [employer] Work Phone: Start: 08-21-2023 End: 08-21-2023 Periodic preventive med est patient 40-64yrs Delphine A Trubachik VEGETABLE SPECKER-HOME PLANNING CONSULTANT SALESPERSON Work Phone: [facility] Comment on above: Routine general medi quynh examination at a health care facility (Primary Dx); Elevated PSA; Urinary frequency; Encounter for screening colonoscopy Start: 08-21-2023 End: 08-21-2023 ambulatory DELPHINE BERRY Facility:[facility] Start: 08-10-2023 End: 08-10-2023 Patient encounter procedure DELPHINE BERRY [facility] Start: 08-15-2022 ambulatory [facility] Start: 08-15-2022 End: 08-15-2022 Office outpatient visit 25 minutes Earle Henderson MD Work Phone: [facility] Comment on above: Primary osteoarthrit is of right knee (Primary Dx); Subchondral insufficiency fracture of condyle of right femur, initial encounter; Osteochondral defect of femoral condyle Start: 07-14-2022 End: 07-14-2022 Patient encounter procedure EARLE HENDERSON [facility] Start: 06-23-2022 [facility] Start: 06-23-2022 End: 06-23-2022 Subsequent hospital visit by physician Earle Henderson MD Work Phone: [facility] Comment on above: Arrived Start: 06-23-2022 End: 06-23-2022 Office outpatient new 30 minutes Earle Henderson MD Work Phone: [facility] Comment on above: Right knee pain, uns pecified chronicity (Primary Dx); Acute medial meniscus tear, right, initial encounter Start: 03-31-2022 End: 03-31-2022 Patient encounter status Delphine Berry VEGETABLE SPECKER-HOME PLANNING CONSULTANT SALESPERSON Work Phone: [facility] Start: 03-31-2022 End: 03-31-2022 Periodic preventive med est patient 40-64yrs Delphine Zimmermanchihansa VEGETABLE SPECKER-HOME PLANNING CONSULTANT SALESPERSON Work Phone: [facility] [place] Comment on above: Routine general medi quynh examination at a health care facility (Primary Dx); Elevated PSA Start: 03-17-2022 End: 03-17-2022 Patient encounter procedure DELPHINE BERRY [facility] Start: 04-12-2021 End: 04-12-2021 Office outpatient visit 25 minutes Delphine Berry VEGETABLE SPECKER-HOME PLANNING CONSULTANT SALESPERSON Work Phone: [facility] [place] Comment on above: Environmental and se asonal allergies (Primary Dx) Start: 2021 End: 2021 Periodic preventive med est patient 40-64yrs [employer]phine [employer] Work Phone: [facility] [place] Comment on above: Routine general medi quynh examination at a health care facility (Primary Dx); Dizziness Start: 01-30-2020 End: 01-30-2020 Office outpatient visit 15 minutes [facility]ine [employer] Work Phone: [facility] [place] Comment on above: Right calf pain (Marva feliciano Dx); Localized swelling of right lower leg Start: 01-23-2020 End: 01-23-2020 Office outpatient visit 25 minutes [facility]ine [employer] Work Phone: [facility] [place] Comment on above: Right calf pain (Marva feliciaon Dx); Localized swelling of right lower leg Start: 12-26-2019 End: 12-26-2019 Periodic preventive med est patient 40-64yrs [facility]phine [employer] Work Phone: [facility] [place] Comment on above: Routine general medi quynh examination at a health care facility (Primary Dx); Screening for colon cancer Start: 07-15-2019 End: 07-15-2019 Refill [facility] [employer] Work Phone: [facility] [place] Start: 05-15-2019 End: 05-15-2019 Patient encounter procedure Other Other [facility] Start: 05-06-2019 End: 05-06-2019 [facility] Start: 05-02-2019 End: 05-02-2019 Patient encounter procedure Historical Provider [facility] Start: 05-01-2019 End: 05-01-2019 Patient encounter procedure Other Other [facility] Start: 04-22-2019 End: 04-22-2019 Patient encounter procedure Historical Provider [facility] Start: 04-08-2019 End: 04-08-2019 Patient encounter procedure Other Other [facility] Start: 03-21-2019 End: 03-21-2019 Telephone encounter Marj Tracy [facility] Comment on above: Other Start: 03-20-2019 End: 03-20-2019 Telephone encounter Delphine GonzalesBeautyCon Work Phone: [facility] [employer] [facility] Comment on above: Results Start: 03-17-2019 End: 03-17-2019 Letter encounter [facility]la [facility] Start: 03-17-2019 End: 03-17-2019 Patient encounter procedure Marj Tracy [facility] Start: 03-17-2019 End: 03-17-2019 Telephone encounter Karla Mi [facility] Comment on above: Other Start: 03-17-2019 End: 03-17-2019 Office outpatient visit 25 minutes Delphine GonzalesBeautyCon Work Phone: [employer] [facility] Comment on above: Acute pain of left k nee (Primary Dx) Start: 03-07-2019 End: 03-07-2019 Telephone encounter Delphine [employer] Work Phone: [facility] [employer] [facility] [facility] Comment on above: Results Start: 02-01-2019 End: 02-01-2019 Patient encounter procedure Other Other [facility] Start: 01-30-2019 End: 01-30-2019 [facility] Start: 01-14-2019 End: 01-14-2019 Telephone encounter Delphine Morton Trdarrenchik Work Phone: [facility] [employer] [facility] Comment on above: Other Start: 01-06-2019 End: 01-06-2019 Patient encounter procedure Other Other [facility] Start: 01-03-2019 End: 01-03-2019 Periodic preventive med est patient 40-64yrs Delphine Berry Work Phone: [facility] [employer] [facility] Comment on above: Thrombocytopenia (Pr imary Dx); Routine general medical examination at a health care facility; Liver enzyme elevation; Erectile dysfunction, unspecified erectile dysfunction type; Colon cancer screening Start: 12-19-2018 End: 12-19-2018 Telephone encounter Harriet Garcia [facility] Comment on above: Labs Only Start: 10-30-2018 End: 10-30-2018 Patient encounter procedure Marj Tracy [facility] Start: 10-01-2018 End: 10-01-2018 Patient encounter procedure Marj Tracy [facility] Procedures Date Procedure Procedure Detail Performing Clinician Start: 02-11-2024 Urnls dip stick/tabl et rgnt auto w/o microscopy Delphine Berry VEGETABLE SPECKER-HOME PLANNING CONSULTANT SALESPERSON Work Phone: Start: 01-01-2024 Transrectal biopsy o f prostate using ultrasound guidance Nadir GARCÍA Start: 10-26-2023 Colonoscopy Cristóbal malone Start: 06-23-2022 Radiologic exam knee complete 4/more views Earle Henderson MD Work Phone: Start: 03-17-2022 Lipid 1996 panel - S brianna or Plasma Delphine Berry VEGETABLE SPECKER-HOME PLANNING CONSULTANT SALESPERSON Work Phone: Start: 12-26-2019 Blood occult peroxid ase actv qual feces 1 deter Delphine Zimmermanchihansa Work Phone: Start: 05-07-2019 Arthroscopy of knee [facility] Comment on above: Left knee Start: 05-02-2019 LABS (OUTSIDE) Historic al Provider Start: 05-02-2019 OUTSIDE RADIOLOGY Histo rical Provider Start: 04-22-2019 OUTSIDE RADIOLOGY Histo rical Provider Start: 03-20-2019 OUTSIDE RADIOLOGY Delphine Berry Work Phone: Start: 03-07-2019 LABS (OUTSIDE) Delphine A Trubachik Work Phone: Start: 01-03-2019 POCT OCCULT BLOOD STOOL Delphine Berry Work Phone: Start: 12-15-2016 Lipid 1996 panel - S brianna or Plasma Marj Demarcus ANKLE FRACTURE 2 DELPHINE DOBSON Comment on above: LEFT ANKLE ORIF Plan of Treatment Date Care Activity Detail Author Start: 01-03-2029 Tetanus vaccination TETANUS [facility] Start: 03-17-2027 Fasting lipid profile LIPID SCREENIN G [facility] Start: 03-17-2027 Lipid panel LIPID SCREENING [facility] Start: 10-29-2024 Screening for malign ant neoplasm of colon COLORECTAL CANCER SCREENING DISCUSSION [facility] Start: 08-09-2024 Prostate specific antigen measurement PROSTATE CANCER SCREENING DISCUSSION [facility] Start: 03-31-2023 Prostate specific antigen measurement PROSTATE CANCER SCREENING DISCUSSION [facility] Start: 08-01-2022 COVID-19 VACCINE (3 - Booster for Fam series) COVID-19 VACCINE (3 - Booster for Fam series) [facility] Start: 07-20-2022 Influenza vaccination A [facility] Start: 2022 Prostate specific antigen measurement PROSTATE CANCER SCREENING DISCUSSION [facility] Start: 12-15-2021 Fasting lipid profile LIPID SCREENIN G [facility] Work Phone: Start: 12-26-2020 Colonoscopy COLORECTAL CAN CER SCREENING DISCUSSION [facility] Start: 12-26-2020 Screening for malign ant neoplasm of colon COLORECTAL CANCER SCREENING DISCUSSION [facility] Start: 11-14-2020 Prostate specific antigen measurement PROSTATE CANCER SCREENING DISCUSSION [facility] Start: 02-06-2020 End: 02-06-2020 Office Visit 02/06/2020 Office Visit Family Medicine Delphine Berry APRN-CNP [address] [place] [address] [phone] [facility] Start: 01-30-2020 End: 01-30-2020 Office Visit 01/30/2020 Office Visit Family Medicine Delphine Berry APRN-ANKUSH [address] [place] [address] [phone] [facility] Start: 01-23-2020 End: 01-22-2021 MRI of knee MRI KNEE RIGHT WITHOUT CONTRAST Imaging Routine Right calf pain Localized swelling of right lower leg Expected: 01/23/2020, Expires: 01/22/2021 Next audience Comment on above: Expected: 01/23/2020 , Expires: 01/22/2021 Start: 01-23-2020 End: 01-22-2021 US DUPLEX EXTREMITY DVT RIGHT US DUPLEX EXTREMITY DVT RIGHT Imaging Routine Right calf pain Localized swelling of right lower leg Expected: 01/23/2020, Expires: 01/22/2021 Next audience Comment on above: Expected: 01/23/2020 , Expires: 01/22/2021 Start: 01-03-2020 Colonoscopy COLON CANCER S CREENING DISCUSSION Next audience Start: 01-03-2020 Protein mass conc COLON CANCER SCREENING DISCUSSION [facility] Start: 07-20-2019 Influenza vaccination INFLUENZA VACC INE (#1) Next audience Start: 03-31-2019 End: 03-31-2019 Office Visit 03/31/2019 Office Visit Orthopaedics Rene Barboza, DO [address] [place] [address] [phone] [facility] Start: 03-17-2019 End: 03-17-2020 Radiologic examination of knee XR KNEE LEFT 4+ VIEWS Imaging Routine Acute pain of left knee Expected: 03/17/2019, Expires: 03/17/2020 Next audience Comment on above: Expected: 03/17/2019 , Expires: 03/17/2020 Start: 02-28-2019 Zoster vaccine hzv l nataly for subcutaneous use ZOSTER (SHINGLES) VACCINE (2 of 2) Next audience Start: 01-03-2019 End: 01-03-2019 Ambulatory 01/03/2019 Office Visit Family Medicine Delphine Berry, VEGETABLE SPECKER-HOME PLANNING CONSULTANT SALESPERSON [address] [place] [address] [phone] [facility] Start: 07-20-2018 Influenza vaccination INFLUENZA VACC INE (#1) [facility] Work Phone: Start: 2017 Prostate specific antigen measurement PROSTATE CANCER SCREENING DISCUSSION [facility] Work Phone: Start: 2017 Protein mass conc COLON CANCER SCREENING DISCUSSION [facility] Work Phone: Start: 1986 Third diphtheria, tetanus and acellular pertussis (DTaP) vaccination TDAP (ADULT) [facility] Work Phone: Start: 1985 Tetanus vaccination TETANUS [facility] Work Phone: Start: 01-22-1980 HIV screening HIV SCREENING DISCUSSI ON [facility] Work Phone: Start: 1967 Hepatitis B vaccination HEP B VACCINE (1 of 3 - 3-dose series) [employer] CBC, EDIF, PLATELET [facility] Work Phone: Comment on above: Ordered: 12/19/2018 Ordered: 01/03/2019 Cobalamin (Vitamin B 12) mass conc VITAMIN B12 Lab Routine Thrombocytopenia Ordered: 01/03/2019 Next audience Comment on above: Ordered: 01/03/2019 Comprehensive metabo lic 2000 panel COMPREHENSIVE METABOLIC PANEL Routine Routine general medical examination at a health care facility Ordered: 12/19/2018 [facility] Work Phone: Comment on above: Ordered: 12/19/2018 Ecg routine ecg w/le ast 12 lds w/i&r [place] ELECTROCARDIOGRAM, COMPLETE [place] - OFFICE PERFORMED Routine Chest pain, unspecified type Chest tightness Shortness of breath Ordered: 02/11/2024 [employer] Comment on above: Ordered: 02/11/2024 FREE TESTOSTERONE FREE TESTOSTER ONE Routine Routine general medical examination at a health care facility Ordered: 12/19/2018 [facility] Work Phone: Comment on above: Ordered: 12/19/2018 Gamma glutamyl transferase enzyme act/vol GGT Lab Routine Liver enzyme elevation Ordered: 01/03/2019 [facility] Comment on above: Ordered: 01/03/2019 HEPATIC FUNCTION PANEL HEPATIC F UNCTION PANEL Lab Routine Liver enzyme elevation Ordered: 01/03/2019 [facility] Comment on above: Ordered: 01/03/2019 HEPATITIS A, B, C HEPATITIS A, B , C Lab Routine Liver enzyme elevation Ordered: 01/03/2019 [facility] Comment on above: Ordered: 01/03/2019 LIPID PANEL W CALCULATED LDL LIPID PANEL W CALCULATED LDL Routine Routine general medical examination at a health care facility Ordered: 12/19/2018 [facility] Work Phone: Comment on above: Ordered: 12/19/2018 MR Knee - right WO contrast MRI KNEE RIGHT WITHOUT CONTRAST Imaging Routine Right knee pain, unspecified chronicity Acute medial meniscus tear, right, initial encounter Ordered: 06/28/2022 [facility] Comment on above: Ordered: 06/28/2022 PSA - DIAGNOSTIC/RYEDR OR MARKER PSA - DIAGNOSTIC/TUMOR MARKER Lab Routine Elevated PSA Ordered: 03/31/2022 [facility] Comment on above: Ordered: 03/31/2022 Testosterone mass conc TESTOSTER ONE Routine Routine general medical examination at a health care facility Ordered: 12/19/2018 [facility] Work Phone: Comment on above: Ordered: 12/19/2018 TSH W/FT4 REFLEX TSH W/FT4 REFLE X Routine Routine general medical examination at a health care facility Ordered: 12/19/2018 [facility] Work Phone: Comment on above: Ordered: 12/19/2018 XR Knee - right 4 Views XR KNEE RIGHT 4+ VIEWS Imaging Routine Right knee pain, unspecified chronicity 06/23/2022 8:12 AM EDT [facility] Work Phone: [facility] Immunizations Immunization Date Immunization Notes Care Provider Aby ware 12-14-2022 zoster vaccine recombinant Ambrocio Sarmini [facility] 09-10-2022 influenza virus vaccine, unspecified formulation Ambrocio Sarmini [facility] 09-10-2022 zoster vaccine recombinant Ambrocio Sarmini [facility] 11-18-2021 SARS-CoV-2 (COVID-19 ) mRNA BNT-162b2 vax Ambrocio Sarmini [facility] 09-03-2021 influenza virus vaccine, unspecified formulation Ambrocio Sarmini [facility] 03-02-2021 SARS-CoV-2 (COVID-19 ) mRNA BNT-162b2 vax Ambrocio Sarmini [facility] Comment on above: Result Comment: 2022: [id number] 02-09-2021 SARS-CoV-2 (COVID-19 ) mRNA BNT-162f1 vax Ambrocio Sarmini [facility] Comment on above: Result Comment: 2022: [id number] 2021 influenza virus vaccine, unspecified formulation Klusterh[employer]a [employer] PLANNING CONSULTANT SALESPERSON Work Phone: [employer] [facility] 01-03-2019 influenza virus vaccine, unspecified formulation Delphine [employer] 01-03-2019 zoster vaccine, unspecified formulation [facility] NEGATED: Highlighted row has not occurred!08-27-2023 influenza virus vaccine, unspecified formulation Ambrocio Sarmini [facility] Payers Date Payer Category Payer Unknown [employer] O PPO POS xxxxxxxxxxxx 2017-Present [id number] 2017 Unknown [employer] O PPO POS [id number] 2017-Present [id number] .[id number] 2017 Unknown ANTHEM ANTHEM HM O PPO POS [id number] 2017-Present [address] [place] [address] [id number] .[id number] 2017 Unknown [id number] 1967 Unknown [id number] 2.16840.1.563413.3.579.2.983 1967 Unknown [id number] 2.16840.1.665774.3.579.2.983 1967 Unknown [id number] 2.16840.1.270555.3.579.2.983 1967 Unknown [id number] 2.16840.1.776097.3.579.2727 1967 Unknown [id number] 2.16840.1.103299.3.579.2727 1967 Unknown [id number] 2.16840.1.649316.3.579.2727 1967 Unknown [id number] 2.16840.1.115869.3.579.2.727 1967 Unknown [id number] 2.16840.1.637849.3.579.2.727 1967 Unknown [id number] 2.16840.1.102724.3.579.2.727 1967 Unknown [id number] 2.16.840.1.900220.3.579.2727 1967 Unknown [id number] 2.16840.1.445115.3.579.2.727 1967 Unknown [id number] 2.16.840.1.987745.3.579.2727 1967 Unknown [id number] 2.16.840.1.435500.3.579.2.727 1967 Unknown [id number] 2.16.840.1.855064.3.579.2.727 1967 Unknown [id number] 2.16.840.1.600165.3.579.2.727 1967 Unknown [id number] 2.16.840.1.677665.3.579.2.727 1967 Unknown [id number] 2.16.840.1.711188.3.579.2.727 1967 Unknown [id number] 2.16.840.1.066328.3.579.2.727 1967 Unknown [id number] 2.16.840.1.333896.3.579.2.983 1967 Unknown [id number] 2.16.840.1.296790.3.579.2.983 1967 Unknown [id number] 2.16.840.1.734402.3.579.2.983 1967 Unknown [id number] 2.16.840.1.033423.3.579.2.727 Unknown [place] BC/BS [id number] Social History Date Type Detail Facility Start: 12-21-2017 End: 08-21-2024 Tobacco smoking status NHIS Never smoker [facility] Work Phone: Start: 1965 Sex Assigned At Not on file O [facility] Work Phone: Start: 03-17-2019 Alcohol Comment occasionally [facility]ITA [facility] Start: 03-17-2019 End: 08-21-2024 Alcohol intake Yes [employer] Start: 12-26-2019 End: 08-21-2024 Alcohol intake Current drinker of alcohol (finding) [facility] Start: 2021 End: 08-21-2024 Tobacco use and exposure Never used [facility] Start: 03-17-2019 Alcohol Comment occasionally [facility] Tobacco smoking status No Smoking Status Entered [facility] Tobacco smoking status No Smoking Status Entered [facility] Start: 08-21-2023 End: 08-21-2024 History of Social function [facility] Start: 12-07-2017 Gender identity Identifies as male gender (finding) [facility] Tobacco smoking status Never [facility] Start: 1965 Sex Assigned At Male F [facility] Functional Status Date Assessment Result Facility 03-17-2024 Functional Status N/A [facility] 01-25-2024 Functional Status N/A [facility] 01-18-2024 Functional Status N/A [facility] 01-10-2024 Functional Status N/A [facility] 01-04-2024 Functional Status N/A [facility] 01-04-2024 Functional Status [facility] 01-01-2024 Functional Status N/A [facility] 12-10-2023 Functional Status N/A [facility] 10-26-2023 Functional Status N/A [facility] Clinical Notes 04-12-2021 to 08-21-2024 Lisa Malloy - 08/21/2024 1:00 PM BRY Souza - 08/21/2024 1:00 PM BRY Ford - 03/12/2024 11:30 AM BRY Ford - 02/11/2024 1:00 PM EDT Note Date & Type Note Facility 08-21-2024 History of Present illness Narrative Juancarlos is here today for his yearly visit. Images from the original note were not included. SUBJECTIVE: Steve Williamson is a 59 y.o. male presenting for his annual checkup. ROS: Feeling well. No dyspnea or chest pain on exertion. No abdominal pain, change in bowel habits, black or bloody stools. No urinary tract or prostatic symptoms. No neurological complaints. Current Outpatient Medications Medication Sig Dispense Refill Alfuzosin HCl 10 MG Tab SR 24 HR Take 1 tablet by mouth. ascorbic acid 500 MG tablet Take 1 tablet by mouth daily. CALCIUM PO Take by mouth. Thinks contains Zinc cetirizine 10 MG tablet Take 1 tablet by mouth daily. Generic for Zyrtec Cholecalciferol (Vitamin D3) 1.25 MG (92956 UT) capsule Take 1 capsule by mouth daily. EPINEPHrine 0.3 MG/0.3ML Solution Auto-injector injection Hives, lip/tongue/throat swelling, breathing trouble, lightheadedness, passing out or other symptoms of an allergic reaction. 2 Each 0 latanoprost 0.005 % Solution ophthalmic solution Place 1 drop in both eyes every other day. multivitamin tablet Take 1 tablet by mouth daily. Rosuvastatin 20 MG tablet Take 1 tablet by mouth daily. 90 tablet 0 Zinc 50 MG tablet Take 1 tablet by mouth daily. Magnesium 500 MG capsule Take 1 capsule by mouth daily. No current facility-administered medications for this visit. Allergies: Honey bee venom, Penicillins, and Pollen extract Social History Socioeconomic History Marital status: Spouse name: Not on file Number of children: Not on file Years of education: Not on file Highest education level: Not on file Occupational History Not on file Tobacco Use Smoking status: Never Smokeless tobacco: Never Substance and Sexual Activity Alcohol use: Yes Comment: occasionally Drug use: Never Sexual activity: Not on file Other Topics Concern Not on file Social History Narrative Not on file Social Determinants of Health Financial Resource Strain: Not on file Food Insecurity: Not on file Transportation Needs: Not on file Physical Activity: Not on file Stress: Not on file Social Connections: Not on file Intimate Partner Violence: Not on file Housing Stability: Not on file Past Surgical History: Procedure Laterality Date OTHER SURGICAL 2020 Microscopic knee surgery ANKLE SURGERY Right ankle reconstruction 20 years ago. Vitals: 08/21/24 1306 BP: 118/74 Pulse: 68 Resp: 18 Temp: 97.6 degrees F (36.4 degrees C) SpO2: 97% Weight: 81.9 kg (180 lb 9.6 oz) Height: 1.753 m (5' 9 ) LABORATORY FINDINGS PHYSICAL EXAM: The patient appears well, alert, oriented x 3, in no distress. ENT normal, oropharynx clear Neck supple. No adenopathy or thyromegaly. No carotid bruit PERRLA. Lungs are clear, good air entry, no wheezes, rhonchi or rales. S1 and S2 normal, no murmurs, regular rate and rhythm. Abdomen is soft without tenderness, guarding, mass or organomegaly. Extremities show no edema, normal peripheral pulses. Neurological is normal without focal findings. ASSESSMENT: ICD-10-CM 1. Encounter for well adult exam with abnormal findings Z00.01 2. Elevated PSA R97.20 PLAN: Continue annual exams, labs, Colon CA screenings. 2. Continue methods to help with cholesterol control aside from medication including appropriate diet, exercise (goal should be 20-30 minutes of vigorous activity 3-5 times weekly and should involve large muscles of legs and cause heart to beat faster), maintaining ideal body weight and weight reduction. encouraged on fish oil supplement. 3. Continue on methods to help with BP control aside from medication including appropriate diet, exercise and weight reduction. to continue with BP self monitoring and to bring these in for review at f/u appt. encouraged on sodium restriction/reduction. 4. Continue to modify risk factors for the development of diabetes, HTN, high cholesterol, arthritis, and CAD and encouraged him to continue efforts to maintain a BMI less than approximately 25 along with a healthy diet and regular exercise. 5. Continue to follow with Dr García for PSA 6. Follow up 1 year documented in this encounter [facility] 03-17-2024 Hospital Discharge instructions Patient Education 03/17/2024 [...] treatment? Where to find more information [employer]: www.cancer.org [employer]: www.auanet.org Contact a health care [...] provider. Document Revised: 05/01/2022 Document Reviewed: 05/01/2022 [employer] Patient Education 2022 [employer]. Follow Up Care 01/30/2024 12:56:12 With:RICKY LEVIN, GERONIMO Jacobs Address: [facility] [address] [place] [phone] When: Unknown Comments:10 mos w/ PSA [facility] 03-12-2024 History of Present illness Narrative Subjective History of Present Illness Patient had a prostate bx done 01/01/[address] García. Following this, he developed prostatitis. Presented to [facility] in [place] on 01/04/2024 with high fever and pressure with urination and did end up having burning with urination. Blood and urine cultures ran and negative. Started on IV antibiotics for a few days then discharged on 01/07/2024 with oral ATB's. Was seen 01/18/[address] García for clearance for travel and was cleared. Went to [facility] from to the . Had to [...] reason for visit today is to have [facility] paperwork updated. Was seen here on 02/11/2024, [...] Sooner if needed. documented in this encounter [facility] 02-11-2024 History of Present illness Narrative Subjective History of Present Illness Patient had a prostate bx done 01/01/[address] García. Following this, he developed prostatitis. Presented to [facility] on 01/04/2024 with high fever and pressure with urination and did end up having burning with urination. Blood and urine cultures ran and negative. Started on IV antibiotics for a few days then discharged on 01/07/2024 with oral ATB's. Was seen 01/18/[address] García for clearance for travel and was cleared. Went to [facility] from to the 7th. Had to [...] X 6 weeks. He is scheduled through [facility] after 6 weeks of ATB. Patient's current s/sx include does get shortness of breath and chest tightness with stairs and quicker exertion. Chest tightness will sometimes happen just while sitting. Aggravating factors exertion but sometimes without exertion, unsure if anxious when this happens. Relieving factors none. Associated s/sx none. Patient's reason for visit today is to have [facility] paperwork filled out that his urologist (who [...] testing or procedures.) documented in this encounter [facility] 02-05-2024 Note [id number]#[id number] [facility] 02-05-2024 Note [id number]#[id number] [facility] 02-03-2024 Note Microbiology PROCEDURE: Blood Culture Charcoal [R1] SOURCE: Blood BODY SITE: Arm R COLLECTED DATE/TIME: 01/25/2024 14:51 EST RECEIVED DATE/TIME: 01/25/2024 15:50 EST START DATE/TIME: 01/25/2024 15:50 EST FREE TEXT SOURCE: IV makeda Chacon PA-C, Jaden Chacon PA-C, Jaden FINAL REPORTS Final Report [] Verified Date/Time: 02/01/2024 18:00 EDT No growth at 7 days. Performing Locations R1: This test was performed at: [facility], [address] [place] [address], [address] , , [facility] Comment on above: Performed By: #### 1 [id number], [id number], [id number], [id number], [id number] #### [facility] [address] [place] [id number] 01-29-2024 Evaluation + Plan note Extrac melly [...] BERRY NP Within 5 to [address] [place], [place] [id number]- [facility] (1) Additional Instructions: Call for followup appointment RICKY LEVIN, GERONIMO Jacobs Within 2 weeks [facility] [address], [place] [address]- Additional Instructions: Call for followup appointment PICC Home Care Guide Prostatitis, Epbs-gg-Jdeb Addendum by Juan David Brown DO, am on January 29, 2024 13:36:09 EDT Patient will follow-up with Dr. Rodney as outpatient as well. Extracted from: Title:APSO Note Author:Rod Brown DO Hussein e:01/28/24 Prostatitis (N41.9: Inflamma tory disease of [...] 0 Hospital Discharge Day > 30 Min 10500 PSA Total PSA Total PSA Total PSA Total PSA Total PSA Total Sbsq Hospital Care/Day Moderate 35 Minutes 22019 Sepsis (A41.9: Sepsis, unspecified organism) 2/2 above [...] View Extracted from: Title:Admission H & P Author:Louisa Soriano MD Date:01/25/24 Prostatitis Sepsis Abnormal UA -Blood cultures -Urine cultures -PSA -CT abdomen pelvis negative for abscess -CTX and Vancomycin -Will likely need PICC line and 6 weeks of IV antibiotics -Continue to monitor Chronic Medical Conditions -med rec Time: 55 mins Plan: As above DVT PPX: Heparin Future Appointments Appointment Date:08/01/2024 11:00:00 AM Scheduled Provider:Nadir GARCÍA MD Location:[facility] Appointment Type:URO Office Visit Future Scheduled Tests Laboratory* PSA Total 02/05/24 * PSA Total 02/12/24 * PSA Total 02/19/24 * PSA Total 02/26/24 * PSA Total 03/04/24 * PSA Total 03/11/24 [facility]03-12-2024 NoteAdmission and Discharge Information Admit Date/Time:01/25/2024 18:43 Admitting Physician - Louisa Soriano MD Consulting Physician - Nikita Rodney M.D Admitting [...] BERRY NP Within 5 to [address] [place], [place] [id number] [facility] (1) Additional Instructions: Call for followup appointment RICKY LEVIN, GERONIMO Jacobs Within 2 weeks [facility] [address], [place] [address]- Additional Instructions: Call for followup appointment Patient Education PICC Home Care Guide Prostatitis, Hrbb-bk-Gsou Patient will follow-up with Dr. Rodney as outpatient as well.[facility]:Result Comment: Electronically Signed By: Rod Brown DO.gerhard\Date and Time Signed: 01/29/24 13:36 [id number] Hospital Discharge instructions Patient Education 01/28/2024 11:11:18 [...] and water are not available, use hand business analyst ecommerce. ?Change your dressing only if taught to [...] provider. Document Revised: 05/24/2022 Document Reviewed: 05/24/2022 [employer] Patient Education 2022 [employer]. 01/28/2024 11:10:28 Prostatitis, Zasi-ml-Idqe Prostatitis Prostatitis is swelling of the prostate [...] Follow these instructions at home: Medicines Take hdjb-bvo-atqewkq and prescription medicines only as told by [...] important. Where to find more information [place] of Diabetes and Digestive and Kidney Diseases: [...] on the type that you have. Take xinf-ejj-nwfthhd and prescription medicines only as told by [...] provider. Document Revised: 12/10/2020 Document Reviewed: 12/10/2020 [employer] Patient Education 2022 [employer]. Follow Up Care 01/25/2024 13:36:40 With:Nikita Rodney M.D [facility] Address: [address] [place] [address] [place] [address] When:2 weeks Comments:Call for followup appointment With:Nikita Rodney Address: [address] [place] [phone] Business (1) When:2 to 4 weeks [facility] Address: [address] [place] [phone] Business (1) When:5 to 7 days Comments:Call for followup appointment With:RICKY LEVIN, Nadir Mercado, URL Address: [facility] [address], [place] [address]- When:2 weeks Comments:Call for followup appointment [facility]03-11-2024 NoteMicrobiology PROCEDURE: Blood Culture Charcoal [R1] [...] Locations R1: This test was performed at: [facility], [address] [place] [address], [address]- , , [facility]Comment on above:Performed By: #### [id number], [id number], [id number], [id number], [id number] #### [facility] [address] [place], [place] [id number] NoteBasic Information Admit Date/Time:01/25/2024 18:46 Chief Complaint [...] Lymph Auto: 5 % Low (01/25/24 14:51:00) Miner Auto: 6.8 % (01/25/24 14:51:00) Eos Auto: 0.2 % (01/25/24 14:51:00) Basophil Auto: 0.1 % (01/25/24 14:51:00) Neutro Absolute: 13.8 E9/L High (01/25/24 14:51:00) Lymph Absolute: 0.8 E9/L Low (01/25/24 14:51:00) Miner Absolute: 1.1 E9/L High (01/25/24 14:51:00) Eos [...] Medical Conditions -med rec (more content not included)...[facility]:Result Comment: Electronically Signed By: Christie LEVIN, Louisa\.br\Date and Time Signed: 01/25/24 19:22 [id number] Hospital Discharge instructions Patient Education 01/18/2024 11:33:02 [...] Follow these instructions at home: Medicines Take rwcw-srt-crzfprm and prescription medicines only as told by [...] important. Where to find more information [place] of Diabetes and Digestive and Kidney Diseases: [...] depends on the type of prostatitis. Take jduh-oht-ewwzkpm and prescription medicines only as told by [...] provider. Document Revised: 12/10/2020 Document Reviewed: 12/10/2020 [employer] Patient Education 2022 [employer]evo. Follow Up Care 12/10/2023 12:59:15 With:RICKY LEVIN, Nadir Mercado, URL Address: [address] [place], [place] [phone]- When: Unknown [facility] 02-23-2024 NoteMicrobiology PROCEDURE: Blood Culture Charcoal [R1] SOURCE: Blood BODY SITE: Arm R COLLECTED DATE/TIME: 01/04/2024 16:20 EST RECEIVED DATE/TIME: 01/04/2024 16:44 EST START DATE/TIME: 01/04/2024 16:44 EST FREE TEXT SOURCE: Alexis HONG, Daniel Dailey. Alexis HONG, Daniel Dailey. FINAL REPORTS Final Report [] Verified Date/Time: 01/11/2024 18:00 EST No growth at 7 days. Performing Locations R1: This test was performed at: [facility], [address] [place] [address], [id number] , , [facility]auVan [facility] HospitalComment on above:Performed By: #### [id number], [id number], [id number], [id number] #### [facility] [address] [place] [address] [id number] NoteMicrobiology PROCEDURE: Blood Culture Charcoal [R1] SOURCE: Blood BODY SITE: Arm L COLLECTED DATE/TIME: 01/04/2024 16:28 EST RECEIVED DATE/TIME: 01/04/2024 16:44 EST START DATE/TIME: 01/04/2024 16:44 EST FREE TEXT SOURCE: Alexis HONG, Daniel Dailey. Alexis HONG, Daniel Dailey. FINAL REPORTS Final Report [] Verified Date/Time: 01/11/2024 18:00 EST No growth at 7 days. Performing Locations R1: This test was performed at: [facility], [address] [place] [address], [address] [place] [address], EzywwgVan Wert County HospitalComment on above:Performed By: #### [id number], [id number], [id number], [id number], [id number], [id number], [id number] #### [facility] [address] [place] [address] [id number] Evaluation + Plan noteExtracted from: Title:ED Note Author:Amauri Tran DO Date: Superficial thrombophlebitis (I80.9: Phlebitis and thrombophlebitis of unspecified site) Orders: cephalexin, 500 mg = 1 cap(s), Oral, QID, X 7 day(s), # 28 cap(s), Refills(s) 0, Pharmacy: [id number], 178, cm, 01/10/24 10:05:00 EST, Height/Length Dosing, 82.6, kg, 01/10/24 10:05:00 EST, Weight Dosing Future Appointments Appointment Date:01/18/2024 11:00:00 AM Scheduled Provider:Nadir GARCÍA MD Location:[facility] Appointment Type:URO Office Visit [facility]02-22-2024 Hospital Discharge instructions Patient Education 01/10/2024 [...] Follow these instructions at home: Medicines Take hpgi-tiw-ubvmtto and prescription medicines only as told by [...] provider. Document Revised: 05/01/2022 Document Reviewed: 05/01/2022 [employer] Patient Education 2022 [employer]. Follow Up Care 01/10/2024 09:55:08 With:DELPHINE BERRY [...] you develop any new or worsening symptoms. [facility]02-19-2024 Evaluation + Plan noteExtracted from: Title:Discharge [...] [facility] [address], [place] [address]- Business (1) Additional Instructions: DELPHINE BERRY In 0 days Additional Instructions: Extracted from: Title:Inpatient Consultation-Floor Code* Author: Amanda LEVIN, Marvel Morton Date:01/06/24 Impression and Plan -acute prostatitis s/p [...] FINAL ABX SELECTION. Extracted from: Title:APSO Note Author:Ramesh MIGUEL student, Liz Richard Date:01/06/24 1. Sepsis (A41.9: Sepsis, un specified [...] drops Extracted from: Title:Admission H & P Author:Cici Figueroa Date:01/04/24 DVT prophylaxis PAS b/l Diet regular [...] 19:25:33 EST I was present with the PA student for the service. I personally verified the history of present illness and performed the physical examination and medical decision making. I have verified all of the PA student's documentation for this encounter. Future Appointments Appointment Date:01/18/2024 11:00:00 AM Scheduled Provider:Nadir GARCÍA MD Location:[facility] Appointment Type:URO Office Visit [facility]02-19-2024 Hospital Discharge instructions Patient Education 01/07/2024 [...] Follow these instructions at home: Medicines Take zkiq-lgn-ycgydzh and prescription medicines only as told by [...] important. Where to find more information [place] of Diabetes and Digestive and Kidney Diseases: [...] depends on the type of prostatitis. Take fdwv-rhh-nrpqfxj and prescription medicines only as told by [...] provider. Document Revised: 12/10/2020 Document Reviewed: 12/10/2020 [employer] Patient Education 2022 [employer]. Follow Up Care 01/04/2024 15:26:00 With:Nadir GARCÍA Address: [facility] [address] [place] [address] [facility] (1) When: Unknown Comments:Call for followup appointment With:DELPHINE BERRY Address:Unknown When: Unknown Comments:Call for followup appointment [facility]02-19-2024 NoteAdmission and Discharge Information Admit Date/Time:01/04/2024 17:09 Admitting Physician - Rod Brown DO Consulting Physician - Marvel Patel MD Admitting Diagnoses: Discharge Diagnoses 1. Sepsis, 01/04/2024 [...] He does have an upcoming trip to [place] and was instructed not to consume alcohol [...] Information Nadir GARCÍA [facility] [address] [place] [address]- Business(1) Additional Instructions: DELPHINE BERRY In 0 days Additional Instructions:[facility]:Result Comment: Electronically Signed By: Christie LEVIN, Ahmad\.br\Date and Time Signed: 01/07/24 10:53 [id number] NoteBasic Information Admit Date/Time:01/04/2024 17:09 Chief Complaint [...] 92.3 fL (01/04/24 16:20:00) MCH: 32.4 pg (01/04/24 16:20:00) MCHC: 35.1 gm/dL (01/04/24 16:20:00) RDW: 12.7 % (01/04/24 16:20:00) Platelet: 130 E9/L Low (01/04/24 16:20:00) MPV: 8 fL (01/04/24 16:20:00) Neutro Auto: 85.3 % High (01/04/24 16:20:00) Lymph Auto: 6.3 % Low (01/04/24 16:20:00) Miner Auto: 8.3 % (01/04/24:20:00) Eos Auto: 0 % (01/04/24:20:) Basophil Auto: 0.1 % (01/04/24:20:) Neutro Absolute: 12.5 E9/L High (01/04/24:20:00) Lymph Absolute: 0.9 E9/L Low (01/04/24:20:00) Miner Absolute: 1.2 E9/L High (01/04/24:20:) Eos Absolute: 0 E9/L (01/04/24:20:00) Basophil Absolute: 0 E9/L (01/04/24:20:) PT: 15.9 second(s) High (01/04/24::) INR: 1.41 (01/04/24:) PTT: 34.6 second(s) (01/04/24:20:) Glucose Lvl: 134 mg/dL (01/04/24:20:) BUN: 17 mg/dL (01/04/24:20:) Creatinine: 1.3 mg/dL (01/04/24:20:) eGFR: 64 mL/min/1.73 m2 (01/04/24:20:) BUN/Creat Ratio: 13 (01/04/24:20:) Sodium Lvl: 133 mmol/L Low (01/04/24:20:00) Potassium Lvl: 3.7 mmol/L (01/04/24:20:00) Chloride: 98 mmol/L Low (01/04/24:20:00) CO2: 26 mmol/L (01/04/24:20:00) AGAP: 13 mEq/L (01/04/24:20:00) Calcium Lvl: 9.2 mg/dL (01/04/24:20:00) Alk Phos: 57 Int._Unit/L (01/04/24:20:00) ALT: 23 Int._Unit/L (01/04/24:20:00) AST: 20 Int._Unit/L (01/04/24:20:00) Total Protein: 7.5 gm/dL (01/04/24:20:00) Albumin Lvl: 4.6 gm/dL (01/04/24:20:00) Globulin: 2.9 gm/dL (01/04/24:20:00) A/G Ratio: 1.6 (01/04/24:20:00) Bili Total: 1.5 mg/dL High (01/04/24:20:00) Lactic Acid Lvl: 1.3 mmol/L (01/04/24:20:00) Troponin: 8.5 pg/mL Low (01/04/24:20:00) UA Spec Desc: Clean Catch (01/04/24:24:00) UA Color: Yellow2 (01/04/24:24:00) UA Clarity: Clear2 (01/04/24::00) UA Spec Grav: 1.025 (01/04/24::00) UA pH: 6.0 (01/04/24:24:00) UA Protein: Trace2 Abnormal (01/04/24:24:00) UA Glucose: NEGATIVE1 (01/04/24:24:00) UA Ketones: 1+ Abnormal (01/04/24:24:00) UA Bili: 1+ Abnormal (01/04/24:24:00) UA Blood: 3+ Abnormal (01/04/24:24:00) UA Nitrite: NEGATIVE1 (01/04/24:24:00) UA Urobilinogen: 0.2 (01/04/24:24:00) UA Leuk Est: NEGATIVE1 (01/04/24:24:00) UA RBC: 4-20 (01/04/24:24:00) UA Squam Epithelial: 0-2 (01/04/24:24:00) UA WBC: 0-5 (01/04/24:24:00) UA Bacteria: Trace2 (01/04/24:24:00) UA Mucous: 1+ (01/04/24:24:00) Influenzae A Ag: NEGATIVE1 (01/04/24:24:00) Influenzae B Ag: NEGATIVE1 ( (more content not included)...[facility]:Result Comment: Electronically Signed By: Rod Brown DO.gerhard\Date and Time Signed: 01/04/24 19:25 [id number] Hospital Discharge instructions Patient Education 01/01/2024 10:41:56 [...] for your post-operative appointment in 1-2 weeks [phone] or [phone] Follow Up Care 12/11/2023 09:20:43 With:Nadir GARCÍA Address: [facility] [address] [place] [address]- Business (1) When: Unknown Comments:Keep scheduled appointment [facility]01-22-2024 Hospital Discharge instructions Patient Education 12/10/2023 [...] urethra. Follow these instructions at home: Take bwvx-kqu-annxmiy and prescription medicines only as told by [...] provider. Document Revised: 05/24/2022 Document Reviewed: 05/24/2022 [employer] Patient Education 2022 [employer]. Follow Up Care 09/06/2023 13:00:22 With:RICKY LEVIN, Nadir Mercado, URL Address: [facility] [address] [place] [address]- When: Unknown Comments:Sched TRUS/bx [facility] 01-22-2024 NoteChief Complaint Referral *Elevated PSA [...] Advised p that he will need a cdl b driver. SANCHEZ: 45gms, benign All questions/concerns were [...] pharmacy on file. Pt will need a cdl b driver to the procedure. Follow-up With When Contact Information RICKY LEVIN, Nadir Mercado, URL [facility] [address], [place] [address]- Additional Instructions: Sched TRUS/bx Patient Education Benign Prostatic Hyperplasia I, Manisha Betancourt , personally scribed for Dr. García on 12/10/2023 12:54:35. . Documentation recorded by (more content not included)...[facility] on above:Result Comment: Electronically Signed By: Nadir GARCÍA MD\.br\Date and Time Signed: 12/10/23 12:57 EST\.br\Electronically Co- Signed By: Manisha Betancourt\.br\Date and Time Co-Signed: 12/10/23 12:54 EST 10-29-2023 [id number] [facility]12-08-[facility] Hospital Discharge instructions Patient Education 10/26/2023 10:36:08 Colonoscopy, Care After Surgery [facility]am (CUSTOM) Colonoscopy Care After Surgery Please read the instructions outlined below and refer to this sheet in the next few weeks. These discharge instructions provide you with general information on caring for yourself after you leave thespital. Your doctor may also give you specific [...] unsweetened, w/added ascorbic acid 1 cup 0.5 [place] 1 cup 0.7 Vegetables Cooked Green beans 1 cup 4.0 Carrots 1/2 cup sliced 2.3 Peas 1 cup 8.8 Potato (baked, with skin) 1 medium potato 3.8 Raw [place] (with peel) 1 cucumber 1.5 Lettuce 1 [...] 8.7 Peanuts 1/2 cup 7.9 Chart from [facility] 2013. SEEK IMMEDIATE MEDICAL CARE IF: You [...] Nutrient Database for Standard Reference. Available at http://www.nal.usda.gov/fnic/foodcomp/search/. Information adapted from: [facility] Patient Information 2010 [employer] [facility]. [facility] 2013 http://www.[employer]/contents/roriacqgysak-lwoctzs-xjbrqp-the-basics 10/26/2023 10:36:08 Hemorrhoids Hemorrhoids Hemorrhoids are swollen [...] 3 times a day. General instructions Take yjmw-akh-mrpggwz and prescription medicines only as told by [...] provider. Document Revised: 05/17/2022 Document Reviewed: 05/17/2022 [employer] Patient Education 2022 [employer]. 10/26/2023 10:36:08 Colon Polyps Colon Polyps Colon [...] hard liquor (44 mL). General instructions Take dmpt-jog-xugedvz and prescription medicines only as told by [...] provider. Document Revised: 02/23/2021 Document Reviewed: 02/23/2021 [employer] Patient Education 2022 [employer]. Follow Up Care 08/28/2023 16:17:11 With:Cristóbal Lowe Address: [address] [place] [address], [address] [phone] Business (1) When: Unknown Comments:office will calll for follow up [facility]10-10-2023 NoteRadiology Colonoscopy, Adult A colonoscopy is [...] including vitamins, herbs, eye drops, creams, and owjp-cmn-fnpqejb medicines. ? Any problems you or family [...] tells you to take them. ? Taking zbsx-lvq-lhnvvih medicines, vitamins, herbs, and supplements. General instructions [...] checked for cancer cells. (more content not included)...[facility]10-03-2023 History of Present illness Narrative* Delphine Morton Kristi, VEGETABLE SPECKER-HOME PLANNING CONSULTANT SALESPERSON - 08/21/2023 2:00 PM EDT History of [...] ankle and would like to see an ankle/corporate specialist to look into this. Pt states [...] F/U pending referral results. documented in this [facility] History of Present illness Narrative* Hector Wally - 08/15/2022 8:30 AM EDT Referred by: [...] therapy? no Xrays? 06/23/2022 right kinee MRI? 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 [...] affect. Normal insight. Normal judgment. * Karthik Daly, ATC - 08/15/2022 8:30 AM EDT Right [...] therapy? no Xrays? 06/23/2022 right kinee MRI? 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 [...] findings. Additions if any: Earle Henderson MD, CAQSM [facility] Rewrite Editor - 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 Normal insight. Normal judgment. 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 Additions if any: Earle Henderson MD, CA[facility] Rewrite Editor - [facility] History of Present illness Narrative* Delphine Berry, VEGETABLE SPECKER-HOME PLANNING CONSULTANT SALESPERSON - 03/31/2022 1:30 PM EDT History of [...] that includes ankle surgery and other surgical (2019) (knee scope). Current Medications Current Outpatient Medications [...] allergic to honey bee venom and penicillins. Rosebud and [place] pollen Family History family history includes Lipid [...] will refer to urology. [facility] History of Present illness Narrative* Delphine Berry, VEGETABLE SPECKER-HOME PLANNING CONSULTANT SALESPERSON - 04/12/2021 7:00 AM EDT History of Present Illness ED F/U for allergic reaction Patient [facility] ED on 04/10/2021 with complaints of eye [...] needed pending referral results. documented in this [facility] Instructions* Patient Instructions* Delphine Berry APRN-CNP - [...] needed pending referral results. [facility] No data available for this section [facility] Future Appointments Appointment Date:12/10/2023 11:00:00 AM Scheduled Provider:Nadir GARCÍA MD Location:[facility] Appointment Type:URO [facility] Future Appointments Appointment Date:01/18/2024 11:00:00 AM Scheduled Provider:Nadir GARCÍA MD Location:[facility] Appointment Type:URO Office Visit [facility] evaluation + Plan note Future Appointments Appointment Date:01/18/2024 11:00:00 AM Scheduled Provider:Nadir GARCÍA MD Location:[facility] Appointment Type:URO Office Visit Diagnostic Tests Pending * Prostate Histology ([facility]) 01/01/24 [facility] Future Appointments Appointment Date:08/01/2024 11:00:00 AM Scheduled Provider:Nadir GARCÍA MD Location:[facility] Appointment Type:URO Office Visit [facility] evaluation + Plan note Future Appointments Appointment Date:12/29/2024 02:30:00 PM Scheduled Provider:Nadir GARCÍA MD Location:[facility] Appointment Type:URO Office Visit Future Scheduled Tests Laboratory* PSA Total 01/16/25 * PSA Total 02/05/24 * PSA Total 02/12/24 * PSA Total 02/19/24 * PSA Total 02/26/24 * PSA Total 03/04/24 * PSA Total 03/11/24 [facility] evaluation note* Diagnosis Environmental and seasonal allergies- Primary [facility] Diagnosis Routine general medical examination at a health care facility- Primary Elevated PSA Elevated prostate specific antigen (PSA) [facility]* Diagnosis Right knee pain, unspecified chronicity- Primary Acute medial meniscus tear, right, initial encounter [facility]* Diagnosis Primary osteoarthritis of right knee- Primary Primary localized osteoarthrosis, lower leg Subchondral insufficiency fracture of condyle of right femur, initial encounter Osteochondral defect of femoral condyle Acquired musculoskeletal deformity of other specified site [facility]* Diagnosis Routine general medical examination at a health care facility- Primary Elevated PSA Elevated prostate specific antigen (PSA) Urinary frequency Encounter for screening colonoscopy Special screening for malignant neoplasms, colon [facility]* Diagnosis History of UTI- Primary Personal history of urinary (tract) infection Acute on chronic prostatitis Sepsis without acute organ dysfunction, due to unspecified organism Chest pain, unspecified type Chest tightness Other chest pain Shortness of breath Other eczema documented in this encounter [facility] noteNo assessment information availableC[facility] Work Phone: Evaluation note* Diagnosis Acute on chronic prostatitis- Primary documented in this encounter [facility]* Diagnosis Encounter for well adult exam with abnormal findings- Primary Elevated PSA Elevated prostate specific antigen (PSA) [facility] No data available for this section [facility] No data available for this section [facility] (n[facility] Consultation (Routine) Status Reason Specialty Diagnoses / Procedures Referred By Contact Referred To Contact [facility] Diagnoses Environmental and seasonal allergies Delphine Berry APRN-CNP [address] [id number] Electronically signed by Delphine LONDONO at [facility] for referral (narrative)* Consultation (Routine) - New Request Specialty Diagnoses / Procedures Referred By Quan mendoza Referred To Contact Gastroenterology Diagnoses Encounter for screening colonoscopy Delphine Berry APRN-CNP [address] [place] [address] Luis A Weinberg MD [address] [place] [address] Referral ID Status Reason Start Date Expiration Date V isits Requested Visits Authorized [id number] New Request 08/21/2023 09/14/2024 1 1 * Consultation (Routine) - New Request Specialty Diagnoses / Procedures Referred By Quan mendoza Referred To Contact Urology Diagnoses Elevated PSA Urinary frequency Delphine Berry APRN-CNP [address] [place] [address] Referral ID Status Reason Start Date Expiration Date V isits Requested Visits Authorized [id number] New Request 08/21/2023 09/14/2024 1 1 T [facility] Assessments Diagnosis Routine general medical examination [...] trial medication for this. Script sent for Viagra. Advised on med, how to take potential [...] update documented in this encounter* Patient Instructions* Delphine Berry APRN-CNP - 12/26/2019 2:30 PM EST Routine [...] look into further with cardiovascular work-up per entertainment & media correspondent as well as carotid U/S and consideration [...] years and is described as sustaining erections. 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 Ejaculatory problems [...] trial medication for this. Script sent for feedPack. Advised on med, how to take potential [...] for clot process. States goes Sunday to [facility] for MRI. States is using crutches. States [...] is intact. Romberg sign negative. Coordination normal. Wzdayw-Igww-Meiaaw Test normal. Gait: Gait is intact. Gait [...] look into further with cardiovascular work-up per entertainment & media correspondent as well as carotid U/S and consideration of brain imaging. To call in 2 weeks with statu s update. Advised on emergent s/sx and what to do if one should occur. documented in this encounter Reason for Referral Status Reason Specialty Diagnoses / Procedures Referred By Contact Referred To Contact New Request Orthopaedics Diagnoses Acute pain of left knee Delphine Berry APRN-HOME PLANNING CONSULTANT SALESPERSON [address] [place] [address] [facility] Orthopedics & Sports Medicine [address] [place], [place] [id number] Status Reason Specialty Diagnoses / Procedures Referred By Contact Referred To Contact New Request Diagnoses Right calf pain Localized swelling of right lower leg Procedures MRI KNEE RIGHT WITHOUT CONTRAST [place] MRI LOWER EXTREM JT, W/O CONTRAST Delphine Berry APRN-HOME PLANNING CONSULTANT SALESPERSON [address] [place] [address] Status Reason Specialty Diagnoses / Procedures Referred By Contact Referred To Contact Auth Not Needed Diagnoses Right calf pain Localized swelling of right lower leg Procedures US DUPLEX EXTREMITY DVT RIGHT Delphine Berry APRN-HOME PLANNING CONSULTANT SALESPERSON [address] [place] [address] Specialty Diagnoses / Procedures Referred By Contac t Referred To Contact Diagnoses Right knee pain, unspecified chronicity Acute medial meniscus tear, right, initial encounter Procedures MRI KNEE RIGHT WITHOUT CONTRAST [place] MRI LOWER EXTREM JT, W/O CONTRAST Earle Henderson MD [address] [place] [id number] Referral ID Status Reason Start Date Expiration Date V isits Requested Visits Authorized [id number] New Request 06/28/2022 07/23/2023 1 1 Summary Purpose Family History No Family History Records Found Relationship Condition Age at Onset Recorded Date/T ronaldo Not Specified Familial hyperlipidemia Unknown father Familial hyperlipidemia Unknown Advance Directives No Advanced Directives Records Found Advance Directive Response Recorded Date/ Time Advance Directives No March 07 024 1:02pm Chief Complaint and Reason for [...] Comments Other prostatitis Reason Comments Prostate Problem Reason Comments Other Yearly exam. Care Teams (unrecognized sec tion and content) Transportation Aide Relationship Specialty Start Date End Date Kristi Delphinerom Morton APRN-HOME PLANNING CONSULTANT SALESPERSON PCP - General Nurse Practitioner - [facility] 12/07/17 Transportation Aide Relationship Specialty Start Date End Date Kristi Delphine A VEGETABLE SPECKER-HOME PLANNING CONSULTANT SALESPERSON PCP - General Nurse Practitioner - [facility] 12/07/17 Transportation Aide Relationship Specialty Start Date End Date Delphine Berry APRN-HOME PLANNING CONSULTANT SALESPERSON PCP - General Nurse Practitioner - [facility] 12/07/17 Transportation Aide Relationship Specialty Start Date End Date Delphine Berry Selene VEGETABLE SPECKER-HOME PLANNING CONSULTANT SALESPERSON PCP - General Nurse Practitioner - [facility] 12/07/17 Transportation Aide Relationship Specialty Start Date End Date Delphine Berry VEGETABLE SPECKER-HOME PLANNING CONSULTANT SALESPERSON PCP - General Nurse Practitioner - [facility] 12/07/17 Transportation Aide Relationship Specialty Start Date End Date Kristi Delphine Selene VEGETABLE SPECKER-HOME PLANNING CONSULTANT SALESPERSON PCP - General Nurse Practitioner - [facility] 12/07/17 Team Status: Active Member Role Status Dates Arnold Moya MD Primary Care Provider Active Team Status: Inactive Member Role Status Dates Nikita Rodney MD Attending Provider Active Sta rt: March 10, 2024 End: March 10, 2024 Arnold Moya MD Primary Care Provider Active Start: March 10, 2024 End: March 10, 2024 Transportation Aide Relationship Specialty Start Date End Date Kristi Delphine Morton APRN-HOME PLANNING CONSULTANT SALESPERSON PCP - General Nurse Practitioner - Family 12/07/17 Transportation Aide Relationship Specialty Start Date End Date Wilda Sebastian, VEGETABLE SPECKER-HOME PLANNING CONSULTANT SALESPERSON [address] [place] [address] PCP - General Certified Nurse Practitioner 08/15/24 (unrecognized sect ion and content) No Status Records FoundNo Status Records FoundNo Status Records FoundNo Status Records FoundNo Status Records FoundNo Status Records FoundNo Status Records FoundNo Status Records Found INFORMATION SOURCE (unrecogn ized section and content) DATE CREATED AUTHOR 09/10/2022 [facility] DATE CREATED AUTHOR AUTHOR'S ORGANIZ ATION 08/20/2024 [facility] DATE CREATED AUTHOR AUTHOR'S ORGANIZ ATION 08/23/2024 [facility] DATE CREATED AUTHOR AUTHOR'S ORGANIZ ATION 08/29/2024 [facility] Goals (unrecognized section and content) Goals [...] BE BASED ON THE PRIMARY CLINICAL RECORDS. [employer] provides no warranty or guarantee of the accuracy or completeness of information in this document.
== END 2024-09-01 09:50 | disposition home or self-care (01) ==
LOC: CT 09:50
PROVIDERS: Visit Provider Podiatrist Foot & Ankle Surgery
DX: M19.172 Post-traumatic osteoarthritis, left ankle and foot (principal)
CPT/HCPCS: 73700

== ENCOUNTER 2024-09-24 09:16 | Outpatient (OUT) | payer BC, SELFPAY ==
--- NOTE | 2024-09-24 09:20 | XR_ITS ---
[address] [address] Patient Name: STEVE JOHN MRN: [id number] date: 1965 Sex: M Assigned Patient Location: [facility] Current Patient Location: Accession/Order Number: [id number] Exam Date: 09/24/2024 09:20 Report Date: 09/29/2024 07:37 At the request of: PATRICK KLEIN Procedure: XR ankle LT min 3V PROCEDURE: XR ankle LT min 3V COMPARISON: 08/07/2024 HISTORY: Pain In Left Ankle And Foot FINDINGS: BONES:Stable tibiotalar joint effusion with no mechanical failure. Bone formation with partial bony bridging along the mid and posterior joint. Stable remote fibular resection SOFT TISSUES:Extensive soft tissue swelling EFFUSION:None visible. OTHER: Negative. XR/XR ankle LT min 3V IMPRESSION: Stable subtalar fusion Electronically authenticated by: OTILIA MEYER Date: 09/29/2024 07:37
== END 2024-09-24 09:17 | disposition home or self-care (01) ==
LOC: RAD 09:16
PROVIDERS: Visit Provider Podiatrist Foot & Ankle Surgery
DX: M25.572 Pain in left ankle and joints of left foot (principal); M24.672 Ankylosis, left ankle
CPT/HCPCS: 73610

== ENCOUNTER 2024-10-29 09:11 | Outpatient (OUT) | payer BC, SELFPAY ==
--- NOTE | 2024-10-29 09:14 | XR_ITS ---
The [address] [address] Patient Name: STEVE JOHN MRN: [id number] date: 1965 Sex: M Assigned Patient Location: [facility] Current Patient Location: Accession/Order Number: [id number] Exam Date: 10/29/2024 09:13 Report Date: 10/30/2024 05:04 At the request of: PATRICK KLEIN Procedure: XR ankle LT min 3V PROCEDURE: XR ankle LT min 3V HISTORY: Left Ankle Pain COMPARISON: XR ankle left 09/24/2024 FINDINGS: BONES:Mechanical fusion of the ankle joint via multiple screws; no appreciable hardware fracture loosening. No change in alignment. Prior resection of distal fibula. SOFT TISSUES:Mild soft tissue swelling surrounding the ankle. EFFUSION:None visible. OTHER: Negative. XR/XR ankle LT min 3V IMPRESSION: 1. Stable surgical changes without of hardware failure or change in alignment. 2. No appreciable acute abnormality. Electronically authenticated by: LEXY VALENCIA Date: 10/30/2024 05:04
== END 2024-10-29 09:12 | disposition home or self-care (01) ==
LOC: RAD 09:11
PROVIDERS: Visit Provider Podiatrist Foot & Ankle Surgery
DX: M25.572 Pain in left ankle and joints of left foot (principal); M24.672 Ankylosis, left ankle
CPT/HCPCS: 73610

== ENCOUNTER 2024-12-30 14:45 | Outpatient (OUT) | payer BC, SELFPAY ==
--- NOTE | 2024-12-30 14:47 | XR_ITS ---
[address] [address] Patient Name: STEVE JOHN MRN: [id number] date: 1965 Sex: M Assigned Patient Location: [facility] Current Patient Location: Accession/Order Number: [id number] Exam Date: 12/30/2024 14:53 Report Date: 12/31/2024 13:02 At the request of: PATRICK KLEIN Procedure: XR ankle LT min 3V PROCEDURE: XR ankle LT min 3V COMPARISON: 10/29/2024 HISTORY: Left Ankle Pain FINDINGS: BONES:Stable tibiotalar fusion with multiple screws. Partial bony bridging is observed. No acute fracture or dislocation. Remote resection of the distal fibula. Mild to moderate degenerative changes SOFT TISSUES:Negative. No visible soft tissue swelling. EFFUSION:None visible. OTHER: Negative. XR/XR ankle LT min 3V IMPRESSION: Stable tibiotalar fusion. Electronically authenticated by: OTILIA MEYER Date: 12/31/2024 13:02
== END 2024-12-30 14:46 | disposition home or self-care (01) ==
LOC: RAD 14:45
PROVIDERS: Visit Provider Podiatrist Foot & Ankle Surgery
DX: M25.572 Pain in left ankle and joints of left foot (principal); M24.672 Ankylosis, left ankle
CPT/HCPCS: 73610